=== PATIENT | female | born 1965 | race Caucasian/White ===

== ENCOUNTER 2017-09-27 18:16 | Emergency (ER) | payer OTHER ==
[~2017-09-27] VITALS: Ht 160 cm; Wt 50.0 kg
[~2017-09-27 18:16] MED LIST: ASPCH81X PO; ATV1 PO; CLOP1TAB15 PO; DLTCD/240 PO; EPP3/2 IM; FLUT50SP14 NAE; FURO-85 PO; ISOS120T5 PO; ISR/5 SL; LEVE1TAB57 PO; LISI5TAB PO; MORP1TAB12 PO; NRN600 PO; ONDA4TAB46 PO; OXYC1TAB3 PO; PHN/100 PO; POLY335025 PO; POTA20TA13 PO; PRAZ1CAP10 PO; PRIM50TA29 PO; SIMV10TA2 PO; ZNTT/150 PO
[2017-09-27 18:19] VITALS: TEMP 36.9; Ht 160 cm; Wt 50.0 kg
--- NOTE | 2017-09-27 19:09 | DIAGNOSTIC IMAGING REPORT ---
LEFT ANKLE 3 VIEWS, LEFT FOOT 3 VIEWS HISTORY: Left ankle and foot pain. Fall. COMPARISON: None. FINDINGS: There is an oblique lucency within the proximal phalanx of the second toe. This demonstrates corticated edges and mild callus formation. Therefore, this favors a healing/healed fracture. Old avulsion injury at the medial malleolus. Mild soft tissue swelling within the ankle. No radiopaque foreign bodies. Small bony fragment at the dorsal aspect of the anterior talus with mild overlying soft tissue swelling. This favors an acute avulsion fracture. IMPRESSION: 1. An acute small avulsion fracture at the dorsal aspect of the anterior talus. 2. Healing/healed nondisplaced fracture within the proximal phalanx of the second toe. Electronically signed by: Robert Godoy M.D. 09/27/2017 7:08 PM Dictated Date/Time: 09/27/2017 6:57 PM
[2017-09-27] MEDS ORDERED: FERR1TAB13 PO (19:10)
[2017-09-27] MEDS ORDERED: ATV/1 PO (19:10)
[2017-09-27] MEDS ORDERED: KPP/1000 PO ×2 (19:17)
[2017-09-27] MEDS ORDERED: FLUT0.15 NAE (19:17)
[2017-09-27 19:55] VITALS: BP 118/55; PULSE 66; O2SAT 96
--- NOTE | 2017-09-28 20:43 | EMERGENCY ROOM VISIT NOTE ---
ED Visit Note First contact with patient: 18:25 Chief Complaint: Left foot pain. History of Present Illness: Ms. Freire is a 52-year-old white female who is brought into the ED via wheelchair accompanied by her complaining of left foot pain. Historically patient reports she has a history of muscular dystrophy. Patient reports earlier today she started walking down a flight of steps. She reports when she put her left foot on the step and somehow inverted and "gave out". She then landed on her buttocks and slid down a few stairs. She reports when she stopped she was experiencing severe left ankle and foot pain. This injury occurred approximately 2-3 hours ago. Since that time her pain has been constant. Currently she describes her pain as a throbbing, burning and pressure sensation throughout the ankle and over the lateral aspect of the forefoot. She rates her discomfort 7/10. Her pain is nonradiating. Her pain worsens with ambulation, all movements of the ankle and foot. She has not identified any alleviating factors related to the pain. She reports she took 30 mg of morphine by mouth for her pain with minimal relief of her discomfort. She denies any associated symptoms with her foot pain including worsening numbness/ tingling, worsening weakness, lower leg pain, knee pain, hip pain, back pain. Review of Systems: As noted above in history of present illness. 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 Current Medications: Medications Dose Route/Sig Max Daily Dose Days Date Category Dose Instructions Keppra (Levetiracetam) 1,000 Mg Tab 500 Mg PO HS 09/27/17 Reported Keppra (Levetiracetam) 1,000 Mg Tab 1,000 Mg PO UD 09/27/17 Reported 1 TAB IN THE MORNING AND 1 TAB AT 4PM Flonase Allergy Relief (Fluticasone Propionate (Nasal)) 50 Mcg/Act Spr 2 Sprays ANALISA DAILY 09/27/17 Reported Kp Ferrous Sulfate (Ferrous Sulfate) 325 Mg Tab 1 Tab PO QPM 30 09/27/17 Reported WITH EVENING MEAL Ativan (Lorazepam) 1 Mg Tab 2 Mg PO HS 09/27/17 Reported Roxicodone Ir (Oxycodone HCl) 5 Mg Tab 2 Tab PO Q8 PRN 05/16/16 Reported Diltiazem Cd (Diltiazem Hcl) 240 Mg Capcr 480 Mg PO BID 05/16/16 Reported Potassium Chloride Er (Potassium Chloride Microencaps) 20 Meq Tab 40 Meq PO DAILY 05/16/16 Reported Lorazepam 1 Mg Tab 0.5 Mg PO Q4-6H 01/16/15 Reported Lasix (Furosemide) 20 Mg Tab 20 Mg PO DAILY 01/16/15 Reported Gabapentin 600 Mg Tab 600 Mg PO QID 01/16/15 Reported Miralax (Polyethylene Glycol 3350) 1 Pow Pow 17 Gm PO DAILY PRN 01/16/15 Reported Dilantin (Phenytoin Sodium) 100 Mg Cap 100 Mg PO TID 01/16/15 Reported Epipen (Epinephrine) 0.3 Mg/0.3 Ml Inj 0.3 Mg IM UD PRN 01/16/15 Reported Aspirin Chewable (Aspirin) 81 Mg Chew 81 Mg PO DAILY 09/22/13 Reported Prinivil (Lisinopril) 5 Mg Tab 10 Mg PO DAILY 05/05/13 Reported TAKE TWO 5MG TABLETS Morphine Sulfate Er (Morphine Sulfate) 30 Mg Tab 30 Mg PO BID 05/05/13 Reported Zantac (Ranitidine HCl) 150 Mg Tab 150 Mg PO BID 05/28/12 Reported Zocor (Simvastatin) 10 Mg Tab 10 Mg PO QPM 05/28/12 Reported Isordil (Isosorbide Dinitrate) 5 Mg Tab 5 Mg SL Q3HR PRN 08/05/10 Reported Take sublingual every 3 hours as needed for chest pain. Imdur Ext Rel (Isosorbide Mononitrate) 120 Mg Ertab 120 Mg PO AMPM 03/07/10 Reported Prazosin (Prazosin HCl) 1 Mg Cap 1 Mg PO BID 02/01/10 Reported Zofran (Ondansetron HCl) 4 Mg Tab 4 Mg PO Q6 PRN 01/15/10 Reported Take as needed for nausea/vomiting. Plavix (Clopidogrel Bisulfate) 75 Mg Tab 75 Mg PO DAILY 01/15/10 Reported Mysoline (Primidone) 50 Mg Tab 50 Mg PO TID 01/15/10 Reported Allergies to Medications: Latex, meperidine, scopolamine, levothyroxine, antihistamines, diphenhydramine. Social History: Patient is not employed; she lives with her and feels safe in her home environment; she admits to tobacco use. Physical Examination: Vital Signs: Date Time Temp Pulse Resp B/P (MAP) Pulse Ox O2 Delivery O2 Flow Rate FiO2 09/27/17 19:55 66 18 118/55 96 09/27/17 18:19 36.9 77 18 137/69 95 Room Air GENERAL: 52-year-old female in mild to moderate distress due to pain, chronically ill-appearing, afebrile and hemodynamically stable. NEUROLOGICAL: Awake, alert and oriented to person, place and time. Answering questions appropriately and following commands. SKIN: Warm, dry and pink. No soft tissue trauma noted. LEFT LOWER EXTREMITY: No gross bony deformity. No tenderness in the hip, knee or proximal tibia/fibula. Moderate tenderness over both the lateral and medial malleoli with mild swelling but no bony deformity or crepitus. Tenderness over the anterior aspect of the talus with mild swelling but no bony deformity or crepitus. Tenderness through all the metatarsals with prominence over the third , fourth and fifth with minimal swelling but no bony deformity or crepitus. Throughout the foot the skin was warm and pink and capillary refill is brisk. She was able to distinguish light sensations through all dermatomes of the toes. She had decreased range of motion in the ankle and the toes due to pain. There is also tenderness over the plantar surface of the foot with no palpable bony deformity, swelling or ecchymosis. ED Course: Patient is assessed as noted above. Patient's medication list was reviewed. Left Ankle X-Rays: Was read by myself and the radiologist showing acute small avulsion fracture to the dorsal aspect of the anterior talus. Radiologist also notes a healing nondisplaced fracture within the proximal phalanxes of the second toe. Left Foot X-Rays: Were read by myself and the radiologist showing the avulsion fracture to the talus and a healing nondisplaced fracture of the second toe. Patient was trialed on a gel splint, postop shoe and walking boot and tolerated the walking boot much better than the others. Patient and were educated about today's findings and instructed on her treatment plan; she verbalizes understanding and agreement with this plan. Clinical Impression: Acute avulsion fracture of the anterior talus. Status post fall. Disposition: Patient discharged home in stable condition accompanied by her ; prior to departure she was reassessed and subjectively reported she was feeling the same. Plan: Patient was encouraged to continue current medications as prescribed. Patient was encouraged use ice on areas of pain and swelling 4-5 times a day for 20-30 minutes. Patient was encouraged to elevate her foot while at rest. Patient was encouraged to use her fracture boot while walking; she did reports she'll walker at home which I also encouraged her to use. Patient was encouraged to follow-up with her account review specialist that [facility] for definitive care and treatment. Patient was encouraged return ED for worsening/uncontrolled pain, uncontrolled swelling, worsening numbness/tingling or weakness of the leg or any new/ concerning symptoms.
== END 2017-09-27 19:57 | disposition home or self-care (01) ==
LOC: C.EDB 18:17 → C.EDD 19:57
DX: S92.152A Displaced avulsion fracture (chip fracture) of left talus, initial encounter for closed fracture (principal); X50.1XXA Overexertion from prolonged static or awkward postures, initial encounter; W10.9XXA Fall (on) (from) unspecified stairs and steps, initial encounter; Y93.01 Activity, walking, marching and hiking; Y99.8 Other external cause status; E78.5 Hyperlipidemia, unspecified; G71.0 Muscular dystrophy; K21.9 Gastro-esophageal reflux disease without esophagitis; I25.10 Atherosclerotic heart disease of native coronary artery without angina pectoris; I11.0 Hypertensive heart disease with heart failure; I50.32 Chronic diastolic (congestive) heart failure; Z72.0 Tobacco use; Z95.810 Presence of automatic (implantable) cardiac defibrillator; Z86.74 Personal history of sudden cardiac arrest; Z98.61 Coronary angioplasty status; Z79.02 Long term (current) use of antithrombotics/antiplatelets; Z79.82 Long term (current) use of aspirin; Z79.899 Other long term (current) drug therapy

== ENCOUNTER 2021-05-15 22:12 | Inpatient (IN) ==
[2021-05-15] MEDS ORDERED: SODIUM CHLORIDE 0.9% 1000ML 1,000 ML IV ONE (23:54)
--- NOTE | 2021-05-16 00:01 | Emergency Department Note ---
Impression & Plan Anemia, Syncope, Elevated troponin ED Provider Note Name: EFRAÍN TIPTON Age: 55 Sex: F Arrives Via: Ambulance Informant: Patient, ED Provider: Mani Bojorquez MD Chief Complaint: syncope Impression: Anemia Syncope Elevated Troponin Medical Decision Makin yr old female with extensive PMH including known coronary disease arrives for evaluation of acute weakness and syncope. On discussion weakness ongoing the last few weeks to the point where unable to even ambulate around her house and associated with persistent chest pains and body aches. She is tired and ill appearing on evaluation but not in extremis, is breathing comfortably and vitals with mild hypotension. She has no focal deficits to suspect acute stroke at this time. She is afebrile, clear lungs and soft abdomen thus infection seems unlikely. Quite pale appearing which was explained with severe anemia. Discussed rectal exam though she declines stating cologuard in last few days was negative. Urgently ordered 2 U PRBC which she and signed consent for. She has mild trop elevation which is concerning in setting of chest pains, though without STEMI and with chronicity I do not feel that emergent cath in setting of severe anemia indicated at this time. 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 Hospitalist consulted for further management Prior Medical Record and Triage/Nursing Notes reviewed by Me Additional history obtained from chart Differentials:Infection, dehydration, metabolic abnormality, hypo/hyperglycemia, electrolyte disturbance, anemia, hypoxia, cardiac sources, intracerebral event, toxicologic, neurologic, as well as other pathologies. Vital Signs: reviewed and remarkable for mild hypotension Interventions: saline lock, nss bolus, 2 Units PRBC, fentanyl iv, morphine iv Labs:Reviewed and remarkable for anemia, elevated trop Imaging:X ray results are stated below per my interpretation: Chest: 1 view: No infiltrate, no effusion, normal cardiac border. EKG:Per My Interpretation: Indication weakness: NSR 77 bpm, qtc 427. No Ectopy. Lateral ST depressions without STEMI. Compared to EKG 01/29/[address] depressions. Cardiac/Tele Monitoring: Cardiac Monitoring: An Order was placed for continuous cardiac monitoring. The monitor shows a rate of 70 with a normal sinus rhythm. Consults:Dr Richard Garcia Hospitalist Plan: Disposition:Hospitalization. Condition: Fair History of Present Illness:55 yr old female arrives for evaluation of syncope. Patient notes she has been feeling weak and tired for the last few weeks. Today patient notes she just has felt very weak. Associated with nausea, weakness, leg pains, left chest pains. States she has no appetite. This evening notes she just didn't seem to be acting normally. She had a syncopal event around 10 pm this evening which lasted a few minutes. As she came too she had some slurred speech which has resolved. He notes that she was acting quite strange making odd body movement. This gradually got better. No fevers, chills, cough, syncope, headache, neck pain, nor other symptoms. No focal weakness but notes that that her right leg has not been working correctly for quite some time. No medications prior to arrival. She did not take her medications this evening. Nothing makes better nor worse. ROS: See above HPI for pertinent positives & negatives. A total of 10 systems reviewed and were otherwise negative. Past Medical History:See Below Past Surgical History:See Below Family History:See Below Social History:See Below Home Medications:See Below Allergies:See Below Vitals:Blood Pressure: 106/49, Pulse 75, RR 22, T 36.6C, O2 93% on RA Physical Exam: GENERAL: Patient is chronically unwell appearing and in minimal distress. Mildly anxious, cachectic, dehydrated, pale appearing EYES: No scleral icterus, unremarkable pupils. ENT: Mucous membranes dry, no nasal congestion. NECK: No masses appreciated, nomeningismus, trachea is midline. RESPIRATORY: No dyspnea. Clear to auscultation and equal bilaterally. No wheeze, no rhonchi. CARDIOVASCULAR: Regular rate and rhythm.No murmurs, rubs, gallops appreciated. GASTROINTESTINAL: Abdomen soft, non-tender, no peritonitis.Bowel sounds positi ve.No masses appreciated. BACK: No midline tenderness, no CVA tenderness EXTREMITIES: Normal motion all extremities, no cyanosis, no edema. NEUROLOGIC: Alert and oriented, no acute motor or sensory deficits, no focal weakness, cranial nerves grossly intact. SKIN: No rash, no jaundice, no diaphoresis. PSYCH: Appropriate GCS: 15 ED Course: Times/Reassessments: stable on multiple evaluations Critical Care: I have personally spent 37 minutes of critical care time in the direct management of this patient. Acute anemia causing syncope and elevated troponin, requiring emergent transfusion. This was a life/limb threatening event. This 37 minutes is in excess of all separately billable procedures. Mani Bojorquez MD Past Med/Surg History Social History Smoking Status: Smoker, status unknown Tobacco Type: Cigarettes Second Hand Exposure: No; Do You Dip or Chew Tobacco: No; Tobacco Cessation Education Requested by Patient: No Hx Alcohol Use: No Hx Substance Use: Yes Last Used Substance: Days (ago) Communication Ability: Effective Beliefs That Will Affect Care: None marital status: Current Living Situation: Family Other Information That Helps Us Care for You: No Feels Safe at Home: Yes Safety Concerns: Feels Safe At This Time Assistive Devices: Cane, Walker and Wheelchair Allergies Allergies Allergy/AdvReac Type Severity Reaction Status Date / Time bee venom protein (honey bee) Allergy Unknown , Verified 05/15/21 23:32 latex Allergy Unknown 0 Verified 05/15/21 23:32 meperidine Allergy Unknown ? Verified 05/15/21 23:32 scopolamine Allergy Unknown 0 Verified 05/15/21 23:32 levofloxacin AdvReac Intermediate QTC Verified 05/15/21 23:32 PROLONGATION H/O VF ARREST diphenhydramine AdvReac Mild "ARTERITAL Verified 05/15/21 23:32 SPASMS" COLD AdvReac Unknown VASCULAR Uncoded 05/15/21 23:32 COLLAPSE SYNDROME Home Meds Home Medications Medication Instructions Recorded Confirmed albuterol sulfate 90 mcg/actuation 2 puff INHALATION Q4 PRN 05/15/21 05/15/21 aerosol inhaler aspirin 81 mg tablet,delayed 81 mg PO DAILY 05/15/21 05/15/21 release atorvastatin 80 mg tablet 80 mg PO HS 05/15/21 05/15/21 clopidogrel 75 mg tablet 75 mg PO DAILY 05/15/21 05/15/21 diltiazem HCl 240 mg capsule,24 480 mg PO DAILY 05/15/21 05/15/21 hr,extended release epinephrine 0.3 mg/0.3 mL 0.3 mg IM UD PRN 05/15/21 05/15/21 injection, auto-injector (EpiPen) fluticasone propionate 50 2 spray INTRANASAL DAILY 05/15/21 05/15/21 mcg/actuation nasal spray,suspension furosemide 20 mg tablet 20 mg PO DAILY 05/15/21 05/15/21 gabapentin 600 mg tablet 600 mg PO TID 05/15/21 05/15/21 isosorbide dinitrate 5 mg tablet 5 mg PO . EVERY 3 HOURS PRN 05/15/21 05/15/21 isosorbide mononitrate 120 mg 120 mg PO AMPM 05/15/21 05/15/21 tablet,extended release 24 hr levetiracetam 1,000 mg tablet 1,000 mg PO BID 05/15/21 05/15/21 lisinopril 5 mg tablet 10 mg PO DAILY 05/15/21 05/15/21 loratadine 10 mg tablet 10 mg PO DAILY 05/15/21 05/15/21 morphine 30 mg tablet,extended 30 mg PO BID 05/15/21 05/15/21 release omeprazole 20 mg capsule,delayed 20 mg PO DAILY 05/15/21 05/15/21 release oxycodone 5 mg tablet 5 mg PO Q6 PRN 05/15/21 05/15/21 phenytoin sodium extended 100 mg 100 mg PO TID 05/15/21 05/15/21 capsule potassium chloride 20 mEq 40 meq PO DAILY 05/15/21 05/15/21 tablet,extended release(part/cryst) prazosin 1 mg capsule 1 mg PO BID 05/15/21 05/15/21 protein 500 mg chewable tablet 500 mg PO DAILY 05/15/21 05/15/21 tizanidine 4 mg tablet 4 mg PO Q8 PRN 05/15/21 05/15/21 trazodone 50 mg tablet 100 mg PO HS 05/15/21 05/15/21 Results & Data (ED) Vital Signs Vital Signs - 24 hr 05/15/21 22:22 05/15/21 22:24 05/15/21 23:59 Temperature 36.6 C Temperature Source Oral Pulse Rate 85 75 76 Pulse Rate from SpO2 Sensor 75 Pulse Rhythm Regular Pulse Strength Normal Respiratory Rate 22 22 14 Respiratory Effort / Characteristics Non-Labored Spontaneous Respiratory Depth Normal Respiratory Pattern Regular Blood Pressure 106/49 L 94/52 L Blood Pressure Mean 68 66 Blood Pressure Position Lying Pulse Oximetry 93 93 94 Oxygen Delivery Method Room Air Room Air Oxygen Flow Rate Sepsis Recent Fever Within 48 Hours No Sepsis New/Unexplained Change in Mental Status No Sepsis Action Taken by Nursing No Action Required 05/16/21 02:10 05/16/21 02:25 05/16/21 02:40 Temperature 36.8 C 36.9 C 36.8 C Temperature Source Oral Oral Oral Pulse Rate 75 76 75 Pulse Rate from SpO2 Sensor Pulse Rhythm Pulse Strength Respiratory Rate 16 20 20 Respiratory Effort / Characteristics Respiratory Depth Respiratory Pattern Blood Pressure 89/60 L 87/57 L 92/62 L Blood Pressure Mean 69 67 72 Blood Pressure Position Lying Pulse Oximetry 97 95 94 Oxygen Delivery Method Oxygen Flow Rate 2 2 2 Sepsis Recent Fever Within 48 Hours Sepsis New/Unexplained Change in Mental Status Sepsis Action Taken by Nursing Laboratory Data Result diagrams: 05/17/21 04:48 05/17/21 04:48 Lab Results 05/16/21 05/16/21 05/16/21 Range/Units 00:15 00:15 00:22 WBC (4.8-10.8) K/uL RBC (4.2-5.4) M/uL Hgb (12.0-16.0) g/dL Hct (37-47) % MCV (80-100) fL MCH (25-34) pg MCHC (32-36) g/dL RDW Std Deviation (36.4-46.3) fL RDW Coeff of Lola (11.5-14.5) % Plt Count (130-400) K/uL MPV (7.4-10.4) fL Immature Gran % (Auto) % Neut % (Auto) % Lymph % (Auto) % [place] % (Auto) % Eos % (Auto) % Baso % (Auto) % Neut # (Auto) (1.4-6.5) K/uL Lymph # (Auto) (1.2-3.4) K/uL [place] # (Auto) (0.11-0.59) K/uL Eos # (Auto) (0-0.5) K/uL Baso # (Auto) (0-0.2) K/uL Immature Gran # (Auto) (0.00-0.02) K/uL Giant Platelets Hypochromasia Poikilocytosis PT (9.0-12.0) Seconds INR (0.9-1.1) Sodium (136-145) mmol/L Potassium (3.5-5.1) mmol/L Chloride (98-107) mmol/L Carbon Dioxide (21-32) mmol/L Anion Gap (3-11) BUN (7-18) mg/dl Creatinine (0.6-1.2) mg/dl Est Cr Clr Drug Dosing ml/min Est GFR ( Amer) ml/min Est GFR (Non-Af Amer) ml/min BUN/Creatinine Ratio (10-20) Glucose (70-99) mg/dl Calcium (8.5-10.1) mg/dl Magnesium (1.8-2.4) mg/dl Total Bilirubin (0.2-1) mg/dl Direct Bilirubin (0-0.2) mg/dl AST (15-37) U/L ALT (12-78) U/L Alkaline Phosphatase (45-117) U/L Ammonia (11-32) umol/L Total Creatine Kinase (26-192) U/L Troponin I (0-0.045) ng/ml Total Protein (6.4-8.2) gm/dl Albumin (3.4-5.0) gm/dl Urine Color Urine Appearance (Clear) Urine pH (4.5-7.5) Ur Specific [place] (1.000-1.030) Urine Protein (Negative) Urine Glucose (UA) (Negative) Urine Ketones (Negative) Urine Blood (Negative) Urine Nitrite (Negative) Urine Bilirubin (Negative) Urine Urobilinogen (Negative) Ur Leukocyte Esterase (Negative) Ethyl Alcohol mg/dL (0-3) mg/dl COVID-19 Eval Order Covid19 at [facility] SARS-CoV-2 (PCR) NEGATIVE (Negative) Blood Type O Positive Antibody Screen NEGATIVE Crossmatch See Detail 05/16/21 05/16/21 05/16/21 Range/Units 00:22 00:22 00:22 WBC 7.27 (4.8-10.8) K/uL RBC 2.28 L (4.2-5.4) M/uL Hgb 5.4 L* (12.0-16.0) g/dL Hct 18.1 L* (37-47) % MCV 79.4 L (80-100) fL MCH 23.7 L (25-34) pg MCHC 29.8 L (32-36) g/dL RDW Std Deviation 47.9 H (36.4-46.3) fL RDW Coeff of Lola 16.5 H (11.5-14.5) % Plt Count 232 (130-400) K/uL MPV 10.1 (7.4-10.4) fL Immature Gran % (Auto) 0.3 % Neut % (Auto) 77.9 % Lymph % (Auto) 11.8 % [place] % (Auto) 9.8 % Eos % (Auto) 0.1 % Baso % (Auto) 0.1 % Neut # (Auto) 5.66 (1.4-6.5) K/uL Lymph # (Auto) 0.86 L (1.2-3.4) K/uL [place] # (Auto) 0.71 H (0.11-0.59) K/uL Eos # (Auto) 0.01 (0-0.5) K/uL Baso # (Auto) 0.01 (0-0.2) K/uL Immature Gran # (Auto) 0.02 (0.00-0.02) K/uL Giant Platelets 1+ Hypochromasia Present Poikilocytosis Present PT (9.0-12.0) Seconds INR (0.9-1.1) Sodium 131 L (136-145) mmol/L Potassium 5.4 H (3.5-5.1) mmol/L Chloride 103 (98-107) mmol/L Carbon Dioxide 22 (21-32) mmol/L Anion Gap 6.0 (3-11) BUN 22 H (7-18) mg/dl Creatinine 0.63 (0.6-1.2) mg/dl Est Cr Clr Drug Dosing 76.7 ml/min Est GFR ( Amer) 116.2 ml/min Est GFR (Non-Af Amer) 100.3 ml/min BUN/Creatinine Ratio 34.6 H (10-20) Glucose 90 (70-99) mg/dl Calcium 7.9 L (8.5-10.1) mg/dl Magnesium 2.5 H (1.8-2.4) mg/dl Total Bilirubin 0.2 (0.2-1) mg/dl Direct Bilirubin < 0.1 (0-0.2) mg/dl AST 67 H (15-37) U/L ALT 109 H (12-78) U/L Alkaline Phosphatase 139 H (45-117) U/L Ammonia 23.6 (11-32) umol/L Total Creatine Kinase 109 (26-192) U/L Troponin I 1.450 H* (0-0.045) ng/ml Total Protein 6.1 L (6.4-8.2) gm/dl Albumin 3.0 L (3.4-5.0) gm/dl Urine Color Urine Appearance (Clear) Urine pH (4.5-7.5) Ur Specific [place] (1.000-1.030) Urine Protein (Negative) Urine Glucose (UA) (Negative) Urine Ketones (Negative) Urine Blood (Negative) Urine Nitrite (Negative) Urine Bilirubin (Negative) Urine Urobilinogen (Negative) Ur Leukocyte Esterase (Negative) Ethyl Alcohol mg/dL (0-3) mg/dl COVID-19 Eval Order SARS-CoV-2 (PCR) (Negative) Blood Type Antibody Screen Crossmatch 05/16/21 05/16/21 05/16/21 Range/Units 00:22 00:22 01:45 WBC (4.8-10.8) K/uL RBC (4.2-5.4) M/uL Hgb (12.0-16.0) g/dL Hct (37-47) % MCV (80-100) fL MCH (25-34) pg MCHC (32-36) g/dL RDW Std Deviation (36.4-46.3) fL RDW Coeff of Lola (11.5-14.5) % Plt Count (130-400) K/uL MPV (7.4-10.4) fL Immature Gran % (Auto) % Neut % (Auto) % Lymph % (Auto) % [place] % (Auto) % Eos % (Auto) % Baso % (Auto) % Neut # (Auto) (1.4-6.5) K/uL Lymph # (Auto) (1.2-3.4) K/uL [place] # (Auto) (0.11-0.59) K/uL Eos # (Auto) (0-0.5) K/uL Baso # (Auto) (0-0.2) K/uL Immature Gran # (Auto) (0.00-0.02) K/uL Giant Platelets Hypochromasia Poikilocytosis PT 10.5 (9.0-12.0) Seconds INR 1.0 (0.9-1.1) Sodium (136-145) mmol/L Potassium (3.5-5.1) mmol/L Chloride (98-107) mmol/L Carbon Dioxide (21-32) mmol/L Anion Gap (3-11) BUN (7-18) mg/dl Creatinine (0.6-1.2) mg/dl Est Cr Clr Drug Dosing ml/min Est GFR ( Amer) ml/min Est GFR (Non-Af Amer) ml/min BUN/Creatinine Ratio (10-20) Glucose (70-99) mg/dl Calcium (8.5-10.1) mg/dl Magnesium (1.8-2.4) mg/dl Total Bilirubin (0.2-1) mg/dl Direct Bilirubin (0-0.2) mg/dl AST (15-37) U/L ALT (12-78) U/L Alkaline Phosphatase (45-117) U/L Ammonia (11-32) umol/L Total Creatine Kinase (26-192) U/L Troponin I (0-0.045) ng/ml Total Protein (6.4-8.2) gm/dl Albumin (3.4-5.0) gm/dl Urine Color Yellow Urine Appearance Clear (Clear) Urine pH 5.0 (4.5-7.5) Ur Specific [place] 1.010 (1.000-1.030) Urine Protein Negative (Negative) Urine Glucose (UA) Negative (Negative) Urine Ketones Negative (Negative) Urine Blood Negative (Negative) Urine Nitrite Negative (Negative) Urine Bilirubin Negative (Negative) Urine Urobilinogen Negative (Negative) Ur Leukocyte Esterase Negative (Negative) Ethyl Alcohol mg/dL < 3.0 (0-3) mg/dl COVID-19 Eval Order SARS-CoV-2 (PCR) (Negative) Blood Type Antibody Screen Crossmatch Administered Medications Albuterol (Albuterol Hfa 8 Gm Inhaler) 2 puffs INH Q4 PRN PRN Reason: Wheezing Stop: 06/15/21 08:16 Last Admin: 05/16/21 09:34 Dose: 2 puffs Documented by: [id number] Atorvastatin Calcium (Atorvastatin 40 Mg Tab) 80 mg PO HS DENISSE Stop: 06/15/21 20:59 Last Admin: 05/16/21 20:00 Dose: 80 mg Documented by: [id number] Diltiazem HCl (Diltiazem Er 120 Mg Capcr) 480 mg PO DAILY DENISSE Stop: 06/15/21 08:59 Last Admin: 05/16/21 09:22 Dose: 480 mg Documented by: [id number] Fluticasone Propionate (Fluticasone Propionate Na Spr 16 Gm Btl) 2 sprays NA DAILY DENISSE Stop: 06/15/21 08:59 Last Admin: 05/16/21 09:20 Dose: Not Given Documented by: [id number] Furosemide (Furosemide 20 Mg Tab) 20 mg PO DAILY DENISSE Stop: 06/15/21 08:59 Last Admin: 05/16/21 09:16 Dose: 20 mg Documented by: [id number] Gabapentin (Gabapentin 600 Mg Tab) 600 mg PO TID DENISSE Stop: 06/15/21 08:59 Last Admin: 05/16/21 20:01 Dose: 600 mg Documented by: [id number] Admin: 05/16/21 13:18 Dose: 600 mg Documented by: [id number] Admin: 05/16/21 09:21 Dose: 600 mg Documented by: [id number] Hydromorphone HCl (Hydromorphone Inj 0.5 Mg/0.5 Ml Syr) 0.5 mg IV Q4H PRN PRN Reason: Pain Stop: 05/30/21 08:16 Last Admin: 05/17/21 03:43 Dose: 0.5 mg Documented by: [id number] Admin: 05/16/21 09:19 Dose: 0.5 mg Documented by: [id number] Levetiracetam 1,000 mg/ Sodium (Chloride) 110 mls @ 440 mls/hr IV BID DENISSE Stop: 06/15/21 08:59 Last Infusion: 05/16/21 20:17 Dose: 0 mls/hr Documented by: [id number] Admin: 05/16/21 20:02 Dose: 440 mls/hr Documented by: [id number] Infusion: 05/16/21 09:43 Dose: 0 mls/hr Documented by: [id number] Admin: 05/16/21 09:29 Dose: 440 mls/hr Documented by: [id number] Phenytoin 100 mg/ Syringe 2 mls @ 1 mls/min IV TID DENISSE Stop: 06/15/21 08:59 Last Admin: 05/16/21 20:03 Dose: 1 mls/min Documented by: [id number] Admin: 05/16/21 13:18 Dose: 1 mls/min Documented by: [id number] Admin: 05/16/21 09:21 Dose: 1 mls/min Documented by: [id number] Isosorbide Mononitrate (Isosorbide [place] Extended Rel 60 Mg Tabcr) 120 mg PO BID DENISSE Stop: 06/15/21 08:59 Last Admin: 05/16/21 20:02 Dose: 120 mg Documented by: [id number] Admin: 05/16/21 09:22 Dose: 120 mg Documented by: [id number] Lisinopril (Lisinopril 10 Mg Tab) 10 mg PO DAILY DENISSE Stop: 06/15/21 08:59 Last Admin: 05/16/21 09:21 Dose: 10 mg Documented by: [id number] Loratadine (Loratadine 10 Mg Tab) 10 mg PO DAILY DENISSE Stop: 06/15/21 08:59 Last Admin: 05/16/21 09:21 Dose: 10 mg Documented by: [id number] Morphine Sulfate (Morphine Sulfate Cr 15 Mg Tabcr) 30 mg PO BID DENISSE Stop: 05/30/21 08:59 Last Admin: 05/16/21 20:07 Dose: 30 mg Documented by: [id number] Admin: 05/16/21 10:05 Dose: 30 mg Documented by: [id number] Oxycodone HCl (Oxycodone Hcl Ir 5 Mg Tab (Immediate Release)) 5 mg PO Q6 PRN PRN Reason: Pain, Moderate Stop: 05/30/21 08:16 Last Admin: 05/16/21 23:41 Dose: 5 mg Documented by: [id number] Admin: 05/16/21 18:06 Dose: 5 mg Documented by: [id number] Pantoprazole Sodium (Pantoprazole 40 Mg Tab) 40 mg PO DAILY DENISSE Stop: 06/15/21 08:59 Last Admin: 05/16/21 09:22 Dose: 40 mg Documented by: [id number] Prazosin HCl (Prazosin Hcl 1 Mg Cap) 1 mg PO BID DENISSE Stop: 06/15/21 08:59 Last Admin: 05/16/21 20:04 Dose: 1 mg Documented by: [id number] Admin: 05/16/21 09:22 Dose: 1 mg Documented by: [id number] Sodium Chloride (Sodium Chloride 0.9% 10ml Flush) 20 ml IV TID DENISSE Stop: 06/15/21 08:59 Last Admin: 05/16/21 20:00 Dose: 20 ml Documented by: [id number] Admin: 05/16/21 13:18 Dose: 20 ml Documented by: [id number] Admin: 05/16/21 09:22 Dose: 20 ml Documented by: [id number] Tizanidine HCl (Tizanidine Hcl 4 Mg Tablet) 4 mg PO Q8 PRN PRN Reason: Muscle Spasm Stop: 06/15/21 08:16 Last Admin: 05/16/21 09:21 Dose: 4 mg Documented by: [id number] Trazodone HCl (Trazodone Hcl 100 Mg Tab) 100 mg PO HS DENISSE Stop: 06/15/21 20:59 Last Admin: 05/16/21 20:05 Dose: 100 mg Documented by: [id number] Discontinued Medications Acetaminophen (Acetaminophen 500 Mg Tab) 1,000 mg PO NOW STA Stop: 05/16/21 01:22 Last Admin: 05/16/21 01:37 Dose: 1,000 mg Documented by: [id number] Albuterol (Albut/Ipratrop 3mg/0.5mg Neb 3 Ml Vial) 3 ml NEB NOW STA Stop: 05/16/21 04:33 Last Admin: 05/16/21 04:47 Dose: 3 ml Documented by: [id number] Fentanyl Citrate (Fentanyl Citrate 100 Mcg/2 Ml Vial) 50 mcg IV NOW STA Stop: 05/16/21 01:22 Last Admin: 05/16/21 01:37 Dose: 50 mcg Documented by: [id number] Sodium Chloride (Nss 1000ml) 1,000 mls @ 999 mls/hr IV .Q1H1M ONE Stop: 05/16/21 00:54 Last Infusion: 05/16/21 01:12 Dose: 0 mls/hr Documented by: [id number] Admin: 05/16/21 00:18 Dose: 999 mls/hr Documented by: [id number] Pantoprazole Sodium 80 mg/ (Dextrose) 100 mls @ 400 mls/hr IV ONE STA Stop: 05/16/21 05:50 Last Infusion: 05/16/21 08:20 Dose: 0 mls/hr Documented by: [id number] Admin: 05/16/21 08:03 Dose: 400 mls/hr Documented by: [id number] Furosemide 20 mg/ Syringe 2 mls @ 4 mls/min IV ONE ONE Stop: 05/16/21 09:31 Last Admin: 05/16/21 09:18 Dose: 4 mls/min Documented by: [id number] Furosemide 10 mg/ Syringe 1 mls @ 4 mls/min IV TODAY@1700 DENISSE Stop: 05/16/21 23:59 Last Admin: 05/16/21 16:34 Dose: 4 mls/min Documented by: [id number] Furosemide 10 mg/ Syringe 1 mls @ 4 mls/min IV ONE DENISSE Stop: 05/16/21 22:00 Last Admin: 05/16/21 19:59 Dose: 4 mls/min Documented by: [id number] Lorazepam (Lorazepam 0.5 Mg Tab) 0.25 mg PO NOW STA Stop: 05/16/21 10:51 Last Admin: 05/16/21 16:23 Dose: Not Given Documented by: [id number] Morphine Sulfate (Morphine Sulfate 10 Mg/Ml Carp/Vial) 6 mg IV NOW STA Stop: 05/16/21 01:58 Last Admin: 05/16/21 02:01 Dose: 6 mg Documented by: [id number] Potassium Chloride (Potassium Chloride Crtab 20 Meq Tabcr) 40 meq PO DAILY DENISSE Stop: 06/15/21 08:59 Last Admin: 05/16/21 09:39 Dose: Not Given Documented by: [id number] Discharge Plan Visit Data Chief Complaint: Syncope (Near Syncope) Stated Complaint: syncopal; hypotension ED Provider: Mani Bojorquez Discharge Problem: Anemia, Syncope, Elevated troponin Patient Disposition: Admitted As Inpatient Discharge Instructions Interventions: ED Discharge Assessment Last Done: 05/16/21 06:15 Discharge Problem: Anemia Qualifiers: Anemia type: other cause Other causes of anemia: other cause, not classified Qualified Code(s): D64.89 - Other specified anemias Syncope Qualifiers: Syncope type: unspecified Qualified Code(s): R55 - Syncope and collapse
[2021-05-16 00:47] LABS: Prothrombin Time 10.5 Seconds (9.0-12.0)
[2021-05-16 00:57] LABS: Alanine Aminotransferase 109 U/L (12-78); Aspartate Aminotransferase 67 U/L (15-37); BUN Creatinine Ratio 34.6 (10-20); Bilirubin Direct < 0.1 mg/dl (0-0.2); Blood Urea Nitrogen 22 mg/dl (7-18); Calcium 7.9 mg/dl (8.5-10.1); Carbon Dioxide 22 mmol/L (21-32); Chloride 103 mmol/L (98-107); Creatinine Clr Calc Pharmacy 76.7 ml/min; Est GFR (African American) 116.2 ml/min; Est GFR (Non-African American) 100.3 ml/min; Glucose 90 mg/dl (70-99); Magnesium 2.5 mg/dl (1.8-2.4); Potassium 5.4 mmol/L (3.5-5.1); Sodium 131 mmol/L (136-145)
[2021-05-16 01:02] LABS: Basophils # (auto) 0.01 K/uL (0-0.2); Basophils % (auto) 0.1 %; Eosinophils # (auto) 0.01 K/uL (0-0.5); Eosinophils % (auto) 0.1 %; Giant Platelets 1+; Hematocrit (blood only) 18.1 % (37-47); Hemoglobin 5.4 g/dL (12.0-16.0); Hypochromasia Present; Immature Granulocytes # (auto) 0.02 K/uL (0.00-0.02); Immature Granulocytes % (auto) 0.3 %; Lymphocytes # (auto) 0.86 K/uL (1.2-3.4); Lymphocytes % (auto) 11.8 %; Mean Corpuscular Hemoglobin 23.7 pg (25-34); Mean Corpuscular Hgb Conc 29.8 g/dL (32-36); Mean Corpuscular Volume 79.4 fL (80-100); Mean Platelet Volume 10.1 fL (7.4-10.4); Monocytes # (auto) 0.71 K/uL (0.11-0.59); Monocytes % (auto) 9.8 %; Neutrophils # (auto) 5.66 K/uL (1.4-6.5); Neutrophils % (auto) 77.9 %; Platelet Count 232 K/uL (130-400); Poikilocytosis Present; RDW Coefficient of Variation 16.5 % (11.5-14.5); RDW Standard Deviation 47.9 fL (36.4-46.3); Red Blood Count 2.28 M/uL (4.2-5.4); White Blood Count 7.27 K/uL (4.8-10.8)
[2021-05-16 01:06] LABS: Alkaline Phosphatase 139 U/L (45-117); Bilirubin,Total 0.2 mg/dl (0.2-1); Creatine Kinase 109 U/L (26-192); Total Protein 6.1 gm/dl (6.4-8.2)
[2021-05-16] MEDS ORDERED: SODIUM CHLORIDE 0.9% 250 ML IV PRN ×3 (01:21→19:16)
[2021-05-16] MEDS ORDERED: fentaNYL citrate 100 MCG/2 ML VIAL IV STA (01:21)
[2021-05-16] MEDS ORDERED: ACETAMINOPHEN 500 MG TAB PO STA (01:21)
[2021-05-16] MEDS ORDERED: MoRPHine SULFATE 10 MG/ML CARP/VIAL IV STA (01:57)
[2021-05-16] MEDS ORDERED: MoRPHine SULFATE 10 MG/ML CARP/VIAL IV PRN (01:57)
[2021-05-16 02:01] LABS: Appearance Urine Clear (Clear); Bilirubin Urine Negative (Negative); Blood Urine Negative (Negative); Color Urine Yellow; Glucose Urine UA Negative (Negative); Ketones Urine Negative (Negative); Leukocyte Esterase Urine Negative (Negative); Nitrite Urine Negative (Negative); Protein Urine Negative (Negative); Urobilinogen Urine Negative (Negative)
[2021-05-16] MEDS ORDERED: ALBUT/IPRATROP 3MG/0.5MG NEB 3 ML VIAL NEB STA (04:32)
[2021-05-16] MEDS ORDERED: PANTOprazole 80 MG in DEXTROSE 5% 100 ML IV STA (05:36)
--- NOTE | 2021-05-16 06:38 | CT Scan Report ---
CT head/brain wo con CLINICAL HISTORY: 55 years-old Female with syncope. Acute syncope TECHNIQUE: Multiple axial CT images of the head were obtained without contrast. A dose lowering tech nique was utilized adhering to the principles of ALARA. CT DOSE: 537.48 mGy.cm COMPARISON: Head CT 05/16/2016 FINDINGS: No acute intracranial hemorrhage, midline shift, intracranial mass, hydrocephalus, territorial ischem ia or abnormal extra-axial collection. Mild white matter hypodensities may be on a basis of chronic m icrovascular ischemic disease. Cerebral vascular calcifications. The calvarium is intact. The paranasal sinuses, mastoid air cells, and middle ear cavities are clear . IMPRESSION: No acute intracranial abnormality. ACT 112: Negative or not required by law. The above report was generated using voice recognition software. It may contain grammatical, syntax o r spelling errors. Electronically signed by: Freeman Nelson M.D. 05/16/2021 6:36 AM
--- NOTE | 2021-05-16 07:32 | History and Physical Report ---
DATE OF ADMISSION: 05/16/2021. CHIEF COMPLAINT: Syncope. HISTORY OF PRESENT ILLNESS: This is a 55-year-old female with past medical history significant for hyperlipidemia, COPD, ongoing tobacco abuse, still smokes 2-3 cigarettes daily, history of diastolic CHF, bilateral carotid artery stenosis, hypertension, history of CAD, Prinzmetal angina, GERD, vitamin D deficiency, myotonic muscular dystrophy, sacroiliitis, posttraumatic stress disorder, chronic pain syndrome, polyneuropathy and collagen vascular disease, microcytic anemia, status post ICD, nondependent cocaine abuse in remission, nondependent cannabis abuse , CAD status post stent, anxiety, and depression. The patient lives with her director talent management. Sometimes uses a walker, sometimes uses a cane. Lately she is getting more short of breath with exertion. She was walking, ambulating in the room when she suddenly felt dizzy and suddenly collapsed. Her director talent management helped her and she does not know how long she was passed out, but not a very long time, and no biting of the tongue and no incontinence and she was brought into the ER and her hemoglobin was 5.4, potassium 5.4, and troponin is 1.45. Currently, saturating okay on 5 liters OxyMask. She was 89% on room air. Currently, resting comfortably. Complains of back pain, chronic pains, neck pain, requesting pain medication. She is on OxyContin and oxycodone p.r.n. at home. She also complains of some chest pain below her pacemaker region, moderate in severity, short of breath with exertion. Has cough. No fevers. Denies any headache. No blurred visions, no earache, no runny nose, no sore throat. Appetite is not that great. No difficulty swallowing. No nausea, no abdominal pain. Denies any blood in the stools or black stools. No hematuria. She says had significant significant GI bleeding in 2009 causing cardiac arrest. ALLERGIES: BEE VENOM, LATEX, MEPERIDINE, SCOPOLAMINE, LEVAQUIN, DIPHENHYDRAMINE, COLD. PAST MEDICAL HISTORY: As mentioned above. PAST SURGICAL HISTORY: Biopsy of the breast, left heart catheterization, hysteroscopy, endometrial ablation, cardiac defibrillator, knee arthroscopy, ligation of oviducts, cataracts, left carotid endarterectomy. MEDICATIONS: The patient is on albuterol 2 puffs inhalation q. 4 hours p.r.n., aspirin 81 mg p.o. daily, atorvastatin 80 mg p.o. at bedtime, Plavix 75 mg p.o. daily, diltiazem 480 mg p.o. daily, EpiPen p.r.n., Flonase 2 sprays intranasal daily, Lasix 20 mg p.o. daily, gabapentin 600 mg p.o. t.i.d., isosorbide dinitrate 5 mg p.o. q. 3 hours p.r.n., isosorbide mononitrate 120 mg p.o. b.i.d., Keppra 1000 mg p.o. b.i.d., lisinopril 10 mg p.o. daily, loratadine 10 mg p.o. daily, MS Contin 30 mg p.o. b.i.d., omeprazole 20 mg p.o. daily, oxycodone 5 mg p.o. q. 6 hours p.r.n., phenytoin extended 100 mg p.o. t.i.d., potassium chloride 40 mEq p.o. b.i.d., prazosin 1 mg p.o. b.i.d., protein 500 mg p.o. daily, tizanidine 4 mg p.o. q. 8 hours p.r.n., trazodone 100 mg p.o. at bedtime. FAMILY HISTORY: Significant for sister has asthma; son has asthma; mother has uterine cancer, heart disorder; father has emphysema and MS. SOCIAL HISTORY: Lives with a director talent management, smokes 3-4 cigarettes every day for last many years. No alcohol use. Smokes marijuana. REVIEW OF SYSTEMS: As per HPI. Rest of the review of systems is negative. PHYSICAL EXAMINATION: GENERAL: The patient is thin and frail, not in acute distress. VITAL SIGNS: Temperature 37.3, pulse 87, respiratory rate 17, blood pressure 103/70, oxygen 93% on 5 liters. HEENT: Pupils equal, round, and reactive to light. Oral mucosa moist. NECK: No JVD, no neck masses. CARDIOVASCULAR: S1 and S2 heard. Regular rate and rhythm. No murmur, no gallop. RESPIRATORY SYSTEM: Normal AP diameter. Mild occasional wheezing, no crackles. No accessory muscle use. ABDOMEN: Soft, bowel sounds present, nontender, no distention. CENTRAL NERVOUS SYSTEM: Cranial nerves II-XII grossly intact, nonfocal. EXTREMITIES: No edema, no erythema. LABORATORY DATA: WBC 7.3, hemoglobin 5.4, hematocrit 18.1, platelets 232. PT 10.5, INR 1. Sodium 131, potassium 5.4, chloride 103, BUN 22, creatinine 0.6, serum glucose 90, magnesium 2.5, total bilirubin 0.2, direct bilirubin less than 0.1, AST 67, ALT 109, alkaline phosphatase 139, ammonia 23.6. Troponin 1.45. Urinalysis negative. SARS-CoV-2 PCR negative. Ethyl alcohol less than 3. IMAGING DATA: CT of the head, no acute findings. Chest x-ray, no obvious acute findings. EKG: Sinus rhythm with first-degree AV block at a rate of 77, no significant change was found. ASSESSMENT AND PLAN: This is a 55-year-old female who presents with syncope and also complains of chest pain and found to have anemia, non-ST elevated myocardial infarction. 1. Symptomatic anemia: Hemoglobin of 5.4. No obvious bleeding at home. History of gastrointestinal bleed in the past. Will hold her aspirin and Plavix. Will transfuse 2 units of PRBCs for now. Follow H and H q. 6 hours. Stool for Hemoccult. Will place on Protonix drip and consult GI and keep her n.p.o. and closely monitor in the tele floor. 2. Non-ST elevated myocardial infarction: Troponin of 1.45. EKG, no acute findings. The patient complains of chest pain. May be demand ischemia from her significant anemia.Will follow serial CE and echo. Consult cardiology. 3. History of coronary artery disease: Status post LAD stenting as well as vasospastic angina. Currently, holding on aspirin and Plavix because of significant anemia until GI bleed is ruled out.Cardiology consulted.. History of significant GI bleed in the past as per the patient: Continue her home medication of diltiazem, isosorbide mononitrate. Closely monitor. Follow the echocardiogram. 4. History of VT arrest due to coronary artery vasospasm versus acquired QT prolongation with azithromycin exposure, status post single chamber AICD. 5. History of peripheral artery disease with superficial femoral artery occlusion, left subclavian artery stenosis. Currently, holding aspirin and Plavix. Continue her statin. 6. History of myotonic muscular dystrophy: Continue to monitor. PT, OT when stable. 7. History of pulmonary embolism: Coumadin discontinued due to GI bleeding, in 2009. 8. History of left carotid endarterectomy in 2016. 9. Chronic obstructive pulmonary disease: Continue home inhalers. 10. History of chronic pain: Continue home pain medications.dilaudid prn 11. History of seizures: Continue her home meds and will change her home p.o. medication to IV Keppra and IV phenytoin. 12. Diastolic congestive heart failure: Continue home Lasix and lisinopril and nitrate. Monitor for any volume overload. 13. Hypertension: Continue diltiazem, isosorbide dinitrate, lisinopril, diuretics.prazosin Will monitor the blood pressure. 14. Gastroesophageal reflux disease: Currently placed on PPI drip. 15. Deep venous thrombosis prophylaxis: Sequential compression devices for now. DISPOSITION: Closely monitor in the tele floor. Level 1 full code. PT/OT prior to discharge. Social service to help with discharge planning. Job ID: [id number] [facility]ITALRobles
[2021-05-16] MEDS ORDERED: ACETAMINOPHEN 325 MG TAB PO PRN (08:17)
[2021-05-16] MEDS ORDERED: ALBUTEROL HFA 8 GM INHALER INH PRN (08:17)
[2021-05-16] MEDS ORDERED: NITROGLYCERIN SL 0.4 MG/TAB TAB SL PRN (08:17)
[2021-05-16] MEDS ORDERED: EPINEPHrine ADULT AUTO-INJECT 0.3 MG SYR IM PRN (08:17)
[2021-05-16] MEDS ORDERED: ISOSORBIDE DINITRATE 5 MG TAB PO PRN (08:17)
[2021-05-16] MEDS ORDERED: ONDANSETRON INJ 2 MG/ML 2 ML VIAL IV PRN (08:17)
--- NOTE | 2021-05-16 08:39 | XRay Report ---
XR chest 1V portable CLINICAL HISTORY: syncope COMPARISON STUDY: January 29, 2015 FINDINGS: No pneumothorax. No pleural effusion. Lung volumes are increased and associated with flattening of right and left hemidiaphragms. Diffuse r eticular opacities are seen within bilateral mid to lower lungs, but no definitely seen on prior and might represent pulmonary edema or scattered atelectasis. Questionable linear density seen projecting over right apex, could represent superimposition of soft tissue versus other etiology. Cardiomediastinal silhouette is within upper limits of normal. Aorta is calcified. Pulmonary vasculature is indistinct.. Stable position of single lead left-sided AICD with battery pac k partially obscuring left lung parenchyma. Osseous structures: Wall degenerative changes of the spine. IMPRESSION: 1. COPD pattern. Possible pulmonary edema. 2. Atherosclerosis. 3. Cardiomediastinal silhouette is within upper limits of normal. Stable position of left-sided AICD . 4. Questionable linear density projecting to the right apex, could be due to superimposition of stru ctures versus other etiology. Short-term follow-up with PA and lateral chest radiograph on nonemergen cy basis is suggested. ACT 112: Negative or not required by law. The above report was generated using voice recognition software. It may contain grammatical, syntax o r spelling errors. Electronically signed by: Michelle Beck DO 05/16/2021 8:38 AM
[2021-05-16] MEDS ORDERED: POTASSIUM CHLORIDE CRTAB 20 MEQ TABCR PO SCH (09:00)
--- NOTE | 2021-05-16 09:04 | Cardiology Consultation ---
Date of Consultation May 16, 2021 Assessment & Plan (1) Anemia: (2) Presence of stent in LAD coronary artery: (3) Chest pain: (4) Prinzmetal angina: (5) Postoperative deep vein thrombosis: (6) PAD (peripheral artery disease): (7) H/O diastolic dysfunction: At this point I do not see any ischemic cause to her troponin elevation. She carries a history of coronary artery disease and microvascular dysfunction and her severe anemia likely prompted demand ischemia. Obviously, she should not be anticoagulated at this time. Continue low-dose daily aspirin but okay to hold Plavix for the time being. We will check 2D echocardiogram to evaluate for any new wall motion abnormalities. We will also check her device to evaluate for any arrhythmias during her syncopal event. Given her history of coronary artery disease and recent chest discomfort goal hemoglobin is above 10. History of Present Illness Reason for Consultation: elevated troponin and chest pain Requesting Physician: Dr. Ramos Attending Physician: Jessica Guerrero MD History of Present Illness The patient is a very pleasant 55-year-old woman who routinely follows with Dr. Desai of our cardiology practice. She presented to [facility] on May 15, 2021 with reports of a syncopal episode. She states that for the last several weeks she has been noticing more more shortness of breath with exertion. Then on the evening of the she was sitting on the side of her bed when she suddenly lost consciousness. She was brought into the emergency department and she was found to be severely anemic with a hemoglobin of 5.4. She was also slightly hypoxic and she was admitted to telemetry. She states that she has been having occasional chest pain as of late which is similar to her chronic stable angina. A troponin level was drawn in the emergency department that was slightly elevated but EKG revealed no acute ischemic changes. Currently she is short of breath at rest stating that she needs an albuterol treatment. She is received 2 units of packed red blood cells so far and a dose of IV Lasix. She has been seen by our GI colleagues as well. Past medical history as per most recent outpatient cardiology visit: 1. History of CAD past LAD stenting as well as vasospastic angina 2. Past VT arrest, due to coronary artery vasospasm versus acquired QT prolongation withazithromycinexposure, prompting CPR was successful resuscitation and implantation of single-chamber AICD 3. Most recent LVEF >70% by nuclear Gated SPECT in 2016. 4. Peripheral arterial disease with left superficial femoral artery occlusion, left subclavian artery stenosis 5. Type 2 myotonic dystrophy 6. Past pulmonary embolism, Coumadindiscontinueddue to gastrointestinal bleeding in 2009 7. History of left carotid endarterectomy, 2016 Allergies Allergy/AdvReac Type Severity Reaction Status Date / Time bee venom protein (honey bee) Allergy Unknown , Verified 05/15/21 23:32 latex Allergy Unknown 0 Verified 05/15/21 23:32 meperidine Allergy Unknown ? Verified 05/15/21 23:32 scopolamine Allergy Unknown 0 Verified 05/15/21 23:32 levofloxacin AdvReac Intermediate QTC Verified 05/15/21 23:32 PROLONGATION H/O VF ARREST diphenhydramine AdvReac Mild "ARTERITAL Verified 05/15/21 23:32 SPASMS" COLD AdvReac Unknown VASCULAR Uncoded 05/15/21 23:32 COLLAPSE SYNDROME Home Medications Medication Instructions Recorded Confirmed Type albuterol sulfate 90 mcg/actuation 2 puff INHALATION Q4 PRN 05/15/21 05/15/21 History aerosol inhaler aspirin 81 mg tablet,delayed 81 mg PO DAILY 05/15/21 05/15/21 History release atorvastatin 80 mg tablet 80 mg PO HS 05/15/21 05/15/21 History clopidogrel 75 mg tablet 75 mg PO DAILY 05/15/21 05/15/21 History diltiazem HCl 240 mg capsule,24 480 mg PO DAILY 05/15/21 05/15/21 History hr,extended release epinephrine 0.3 mg/0.3 mL 0.3 mg IM UD PRN 05/15/21 05/15/21 History injection, auto-injector (EpiPen) fluticasone propionate 50 2 spray INTRANASAL DAILY 05/15/21 05/15/21 History mcg/actuation nasal spray,suspension furosemide 20 mg tablet 20 mg PO DAILY 05/15/21 05/15/21 History gabapentin 600 mg tablet 600 mg PO TID 05/15/21 05/15/21 History isosorbide dinitrate 5 mg tablet 5 mg PO . EVERY 3 HOURS PRN 05/15/21 05/15/21 History isosorbide mononitrate 120 mg 120 mg PO AMPM 05/15/21 05/15/21 History tablet,extended release 24 hr levetiracetam 1,000 mg tablet 1,000 mg PO BID 05/15/21 05/15/21 History lisinopril 5 mg tablet 10 mg PO DAILY 05/15/21 05/15/21 History loratadine 10 mg tablet 10 mg PO DAILY 05/15/21 05/15/21 History morphine 30 mg tablet,extended 30 mg PO BID 05/15/21 05/15/21 History release omeprazole 20 mg capsule,delayed 20 mg PO DAILY 05/15/21 05/15/21 History release oxycodone 5 mg tablet 5 mg PO Q6 PRN 05/15/21 05/15/21 History phenytoin sodium extended 100 mg 100 mg PO TID 05/15/21 05/15/21 History capsule potassium chloride 20 mEq 40 meq PO DAILY 05/15/21 05/15/21 History tablet,extended release(part/cryst) prazosin 1 mg capsule 1 mg PO BID 05/15/21 05/15/21 History protein 500 mg chewable tablet 500 mg PO DAILY 05/15/21 05/15/21 History tizanidine 4 mg tablet 4 mg PO Q8 PRN 05/15/21 05/15/21 History trazodone 50 mg tablet 100 mg PO HS 05/15/21 05/15/21 History Patient History Social History Smoking Status: Smoker, status unknown Tobacco Type: Cigarettes Second Hand Exposure: No; Do You Dip or Chew Tobacco: No; Tobacco Cessation Education Requested by Patient: No Hx Alcohol Use: No Hx Substance Use: Yes Last Used Substance: Days (ago) Communication Ability: Effective Beliefs That Will Affect Care: None marital status: Current Living Situation: Family Other Information That Helps Us Care for You: No Feels Safe at Home: Yes Safety Concerns: Feels Safe At This Time Assistive Devices: Cane, Walker and Wheelchair Review of Systems Review of Systems: All systems reviewed & are unremarkable except as noted in HPI & below Physical Exam Physical Exam: General: Awake, alert and oriented x 3. No acute distress. HEENT: Normocephalic, atraumatic. Pupils equal, round and reactive to light and accommodation. Extraocular muscles are intact. Anicteric sclera. Moist mucous membranes. Neck: No JVD. No bruit. Cardiovascular: Regular. Positive S-4. Normal S-1 and S-2. No S-3. No murmurs or rubs. Pulmonary: Coarse breath sounds diffusely with scattered rhonchi and wheezing along with fibrotic rales. Abdomen: Bowel sounds x 4, soft. No rebound, guarding or tenderness. No organomegaly. Extremities: No clubbing, cyanosis or edema. +2 pedal pulses bilaterally. Skin: Warm and dry. Results & Data ([facility]) Vital Signs (Past 12 Hours) Vital Signs Temp Pulse Pulse Resp BP BP BP 05/16/21 07:54 36.5 C 87 24 141/83 H 05/16/21 07:53 36.7 C 88 22 141/83 H 05/16/21 06:40 78 23 135/76 05/16/21 05:50 75 23 89/57 L 05/16/21 05:30 36.9 C 78 13 90/56 L 05/16/21 05:15 82 19 84/59 L 05/16/21 05:00 36.8 C 83 28 H 91/59 L 05/16/21 04:45 37.3 C 90 88 20 103/70 05/16/21 04:30 91 H 23 109/70 05/16/21 04:27 37.2 C 95 H 14 112/72 05/16/21 04:20 37.3 C 89 14 112/72 05/16/21 04:10 37.2 C 84 12 95/65 L 05/16/21 04:00 81 18 100/67 05/16/21 03:45 79 17 125/69 05/16/21 03:30 80 22 99/76 L 05/16/21 03:15 79 16 114/72 05/16/21 03:10 37.0 C 81 20 113/69 05/16/21 03:00 81 18 106/68 05/16/21 02:45 79 19 106/65 05/16/21 02:40 36.8 C 75 20 92/62 L 05/16/21 02:30 76 22 95/55 L 05/16/21 02:25 36.9 C 76 20 87/57 L 05/16/21 02:10 36.8 C 75 16 89/60 L 05/16/21 02:00 78 15 92/60 L 05/16/21 01:40 73 17 05/16/21 01:00 75 19 97/61 L 05/16/21 00:30 69 22 99/60 L 05/16/21 00:26 77 14 97/60 L 05/15/21 23:59 76 14 94/52 L 05/15/21 22:24 75 22 05/15/21 22:22 36.6 C 85 22 106/49 L Pulse Ox 05/16/21 07:54 90 05/16/21 07:53 94 05/16/21 06:40 99 05/16/21 05:50 95 05/16/21 05:30 96 05/16/21 05:15 94 05/16/21 05:00 95 05/16/21 04:45 95 05/16/21 04:30 90 05/16/21 04:27 91 05/16/21 04:20 89 L 05/16/21 04:10 90 05/16/21 04:00 91 05/16/21 03:45 88 L 05/16/21 03:30 92 05/16/21 03:15 90 05/16/21 03:10 94 05/16/21 03:00 96 05/16/21 02:45 95 05/16/21 02:40 94 05/16/21 02:30 95 05/16/21 02:25 95 05/16/21 02:10 97 05/16/21 02:00 91 05/16/21 01:40 92 05/16/21 01:00 92 05/16/21 00:30 91 05/16/21 00:26 94 05/15/21 23:59 94 05/15/21 22:24 93 05/15/21 22:22 93
[2021-05-16] MEDS: FUROSEMIDE 20 MG TAB PO SCH (09:16)
[2021-05-16] MEDS: HYDROmorphone INJ 0.5 MG/0.5 ML SYR IV PRN (09:19)
[2021-05-16] MEDS: FLUTICASONE PROPIONATE NA SPR 16 GM BTL SCH (09:20)
[2021-05-16] MEDS: GABAPENTIN 600 MG TAB PO SCH ×3 (09:21→20:01)
[2021-05-16] MEDS: lisinopril 10 MG TAB PO SCH (09:21)
[2021-05-16] MEDS: LORATADINE 10 MG TAB PO SCH (09:21)
[2021-05-16] MEDS: tiZANidine HCL 4 MG TABLET PO PRN (09:21)
[2021-05-16] MEDS: PHENYTOIN 100 MG in SYRINGE 0 ML IV SCH ×3 (09:21→20:03)
[2021-05-16] MEDS: SODIUM CHLORIDE 0.9% 10ML FLUSH IV SCH ×3 (09:22→20:00)
[2021-05-16] MEDS: PANTOprazole 40 MG TAB PO SCH (09:22)
[2021-05-16] MEDS: PRAZOSIN HCL 1 MG CAP PO SCH ×2 (09:22→20:04)
[2021-05-16] MEDS: dilTIAZem ER 120 MG CAPCR PO SCH (09:22)
[2021-05-16] MEDS: ISOSORBIDE MONO EXTENDED REL 60 MG TABCR PO SCH ×2 (09:22→20:02)
--- NOTE | 2021-05-16 09:22 | Gastrointestinal Consultation ---
Date of Consultation May 16, 2021 Assessment & Plan (1) Anemia: 55-year-old female with the above comorbidities, admitted after presenting with syncope and chest pain, found to have severe acute on chronic anemia without GI bleeding. She has had no GI bleeding overnight, awaiting second unit of PRBC. Etiology of severe anemia unclear, though would be prudent to rule out GI source of blood loss. On exam abd is soft. - Continue IV PPI - Monitor H&H, transfuse as needed - We will plan EGD today after hemoglobin is > 7, r/o PUD/gastritis/esophagitis/AVM etc - Monitor GI output - Please correct electrolytes - Continue supportive care as per ICU team Supervising Physician Co-Signing Physician Notes I performed a history and physical examination of the patient today, including specifically on physical exam - soft abdomen. I have discussed the patient's management with the advanced practitioner. Please refer to the nurse practitioner's note for the documented findings and plan of care. No overt ongoing GI bleeding, Patient denies any signs or symptoms to suggest GI bleeding, no melena or rectal bleeding. At this point will hold off on her EGD till she is stable from Cardiac stand point. Use PPI for now. Check labs to r/o Hemolytic anemia. Consider CT scan to r/o retroperitoneal bleeding. History of Present Illness Reason for Consultation: severe anemia Requesting Physician: Dr. Ramos Attending Physician: Jessica Guerrero MD History of Present Illness This is a 55-year-old female with PMH COPD, tobacco use, diastolic CHF, HTN, CAD, GERD, status post ICD, substance abuse, and others admitted yesterday after episode of syncope. Upon arrival to the ER, found to have acute on chronic severe anemia with Hgb 5.4, crit 18, BUN 22, Na 131. Last HGB was 10.5 in 10/2020 per Epic chart. She is complaining of some chest pain, troponin I 0.45, EKG sinus rhythm with first- degree AV block. She was started on a PPI drip. CXR w/ COPD poss pulm edema. Overnight, has had no hematemesis, melena or hematochezia. She did receive 1 unit of blood, with another one ordered. Repeat H&H pending. This morning patient is having coughing episodes with intermittent gagging, making HPI limited. In general denies no vomiting blood, or blood or black stool at home. Bowels move regularly, soft and brown. Denies abdominal pain. No NSAID use. She is on aspirin and Plavix which are being held. She does smoke. Prior history of GI bleeding. In 2009 had EGD/colonoscopy as below: EGD 2009: Normal esophagus. - Z-line regular,. - Gastric mucosal abnormality characterized by erythema. This was biopsied. - Normal examined duodenum. Colonoscopy 2009: - The examined portion of the ileum was normal. - The entire examined colon is normal. Biopsied Allergies Allergy/AdvReac Type Severity Reaction Status Date / Time bee venom protein (honey bee) Allergy Unknown , Verified 05/15/21 23:32 latex Allergy Unknown 0 Verified 05/15/21 23:32 meperidine Allergy Unknown ? Verified 05/15/21 23:32 scopolamine Allergy Unknown 0 Verified 05/15/21 23:32 levofloxacin AdvReac Intermediate QTC Verified 05/15/21 23:32 PROLONGATION H/O VF ARREST diphenhydramine AdvReac Mild "ARTERITAL Verified 05/15/21 23:32 SPASMS" COLD AdvReac Unknown VASCULAR Uncoded 05/15/21 23:32 COLLAPSE SYNDROME Home Medications Medication Instructions Recorded Confirmed Type albuterol sulfate 90 mcg/actuation 2 puff INHALATION Q4 PRN 05/15/21 05/15/21 History aerosol inhaler aspirin 81 mg tablet,delayed 81 mg PO DAILY 05/15/21 05/15/21 History release atorvastatin 80 mg tablet 80 mg PO HS 05/15/21 05/15/21 History clopidogrel 75 mg tablet 75 mg PO DAILY 05/15/21 05/15/21 History diltiazem HCl 240 mg capsule,24 480 mg PO DAILY 05/15/21 05/15/21 History hr,extended release epinephrine 0.3 mg/0.3 mL 0.3 mg IM UD PRN 05/15/21 05/15/21 History injection, auto-injector (EpiPen) fluticasone propionate 50 2 spray INTRANASAL DAILY 05/15/21 05/15/21 History mcg/actuation nasal spray,suspension furosemide 20 mg tablet 20 mg PO DAILY 05/15/21 05/15/21 History gabapentin 600 mg tablet 600 mg PO TID 05/15/21 05/15/21 History isosorbide dinitrate 5 mg tablet 5 mg PO . EVERY 3 HOURS PRN 05/15/21 05/15/21 History isosorbide mononitrate 120 mg 120 mg PO AMPM 05/15/21 05/15/21 History tablet,extended release 24 hr levetiracetam 1,000 mg tablet 1,000 mg PO BID 05/15/21 05/15/21 History lisinopril 5 mg tablet 10 mg PO DAILY 05/15/21 05/15/21 History loratadine 10 mg tablet 10 mg PO DAILY 05/15/21 05/15/21 History morphine 30 mg tablet,extended 30 mg PO BID 05/15/21 05/15/21 History release omeprazole 20 mg capsule,delayed 20 mg PO DAILY 05/15/21 05/15/21 History release oxycodone 5 mg tablet 5 mg PO Q6 PRN 05/15/21 05/15/21 History phenytoin sodium extended 100 mg 100 mg PO TID 05/15/21 05/15/21 History capsule potassium chloride 20 mEq 40 meq PO DAILY 05/15/21 05/15/21 History tablet,extended release(part/cryst) prazosin 1 mg capsule 1 mg PO BID 05/15/21 05/15/21 History protein 500 mg chewable tablet 500 mg PO DAILY 05/15/21 05/15/21 History tizanidine 4 mg tablet 4 mg PO Q8 PRN 05/15/21 05/15/21 History trazodone 50 mg tablet 100 mg PO HS 05/15/21 05/15/21 History Patient History Social History Smoking Status: Smoker, status unknown Tobacco Type: Cigarettes Second Hand Exposure: No; Do You Dip or Chew Tobacco: No; Tobacco Cessation Education Requested by Patient: No Hx Alcohol Use: No Hx Substance Use: Yes Last Used Substance: Days (ago) Communication Ability: Effective Beliefs That Will Affect Care: None marital status: Current Living Situation: Family Other Information That Helps Us Care for You: No Feels Safe at Home: Yes Safety Concerns: Feels Safe At This Time Assistive Devices: Cane, Walker and Wheelchair Review of Systems Constitutional: as per Subjective / HPI; no fever and no chills Respiratory: as per Subjective / HPI, + cough and + dyspnea Cardiovascular: as per Subjective / HPI, + chest pain and + dyspnea; no edema Gastrointestinal: as per Subjective / HPI Integumentary: no rash and no lesions Physical Exam Constitutional: well developed and + ill appearing Eyes: PERRL, conjunctivae normal, anicteric sclerae Neck: trachea midline, no thyromegaly Respiratory: frequent hacky coughing; intermittently taking Oxymask off; some post-tussive gagging, scattered coarse sounds bilaterally Cardiovascular: Rate/Rhythm: regular rate and regular rhythm Heart Sounds: no murmur Extremities: no edema Gastrointestinal (Abdomen): normal bowel sounds, soft, nontender, no hepatosplenomegaly Skin: no rashes, warm and dry Psychiatric: A+Ox3, euthymic affect Results & Data ([facility]) Vital Signs (Past 12 Hours) Vital Signs Temp Pulse Pulse Resp BP BP BP 05/16/21 07:54 36.5 C 87 24 141/83 H 05/16/21 07:53 36.7 C 88 22 141/83 H 05/16/21 06:40 78 23 135/76 05/16/21 05:50 75 23 89/57 L 05/16/21 05:30 36.9 C 78 13 90/56 L 05/16/21 05:15 82 19 84/59 L 05/16/21 05:00 36.8 C 83 28 H 91/59 L 05/16/21 04:45 37.3 C 90 88 20 103/70 05/16/21 04:30 91 H 23 109/70 05/16/21 04:27 37.2 C 95 H 14 112/72 05/16/21 04:20 37.3 C 89 14 112/72 05/16/21 04:10 37.2 C 84 12 95/65 L 05/16/21 04:00 81 18 100/67 05/16/21 03:45 79 17 125/69 05/16/21 03:30 80 22 99/76 L 05/16/21 03:15 79 16 114/72 05/16/21 03:10 37.0 C 81 20 113/69 05/16/21 03:00 81 18 106/68 05/16/21 02:45 79 19 106/65 05/16/21 02:40 36.8 C 75 20 92/62 L 05/16/21 02:30 76 22 95/55 L 05/16/21 02:25 36.9 C 76 20 87/57 L 05/16/21 02:10 36.8 C 75 16 89/60 L 05/16/21 02:00 78 15 92/60 L 05/16/21 01:40 73 17 05/16/21 01:00 75 19 97/61 L 05/16/21 00:30 69 22 99/60 L 05/16/21 00:26 77 14 97/60 L 05/15/21 23:59 76 14 94/52 L 05/15/21 22:24 75 22 05/15/21 22:22 36.6 C 85 22 106/49 L Pulse Ox 05/16/21 07:54 90 05/16/21 07:53 94 05/16/21 06:40 99 05/16/21 05:50 95 05/16/21 05:30 96 05/16/21 05:15 94 05/16/21 05:00 95 05/16/21 04:45 95 05/16/21 04:30 90 05/16/21 04:27 91 05/16/21 04:20 89 L 05/16/21 04:10 90 05/16/21 04:00 91 05/16/21 03:45 88 L 05/16/21 03:30 92 05/16/21 03:15 90 05/16/21 03:10 94 05/16/21 03:00 96 05/16/21 02:45 95 05/16/21 02:40 94 05/16/21 02:30 95 05/16/21 02:25 95 05/16/21 02:10 97 05/16/21 02:00 91 05/16/21 01:40 92 05/16/21 01:00 92 05/16/21 00:30 91 05/16/21 00:26 94 05/15/21 23:59 94 05/15/21 22:24 93 05/15/21 22:22 93 Laboratory Results 05/16/21 05/16/21 05/16/21 Range/Units 09:16 08:28 08:28 WBC (4.8-10.8) K/uL RBC (4.2-5.4) M/uL Hgb Pending (12.0-16.0) g/dL Hct Pending (37-47) % MCV (80-100) fL MCH (25-34) pg MCHC (32-36) g/dL RDW Std Deviation (36.4-46.3) fL RDW Coeff of Lola (11.5-14.5) % Plt Count (130-400) K/uL MPV (7.4-10.4) fL Immature Gran % (Auto) % Neut % (Auto) % Lymph % (Auto) % [place] % (Auto) % Eos % (Auto) % Baso % (Auto) % Neut # (Auto) (1.4-6.5) K/uL Lymph # (Auto) (1.2-3.4) K/uL [place] # (Auto) (0.11-0.59) K/uL Eos # (Auto) (0-0.5) K/uL Baso # (Auto) (0-0.2) K/uL Immature Gran # (Auto) (0.00-0.02) K/uL Giant Platelets Hypochromasia Poikilocytosis PT (9.0-12.0) Seconds INR (0.9-1.1) Sodium Pending (136-145) mmol/L Potassium Pending (3.5-5.1) mmol/L Chloride Pending (98-107) mmol/L Carbon Dioxide Pending (21-32) mmol/L Anion Gap Pending (3-11) BUN Pending (7-18) mg/dl Creatinine Pending (0.6-1.2) mg/dl Est Cr Clr Drug Dosing Pending ml/min Est GFR ( Amer) Pending ml/min Est GFR (Non-Af Amer) Pending ml/min BUN/Creatinine Ratio Pending (10-20) Glucose Pending (70-99) mg/dl Calcium Pending (8.5-10.1) mg/dl Magnesium (1.8-2.4) mg/dl Total Bilirubin (0.2-1) mg/dl Direct Bilirubin (0-0.2) mg/dl AST (15-37) U/L ALT (12-78) U/L Alkaline Phosphatase (45-117) U/L Ammonia (11-32) umol/L Total Creatine Kinase (26-192) U/L Troponin I 1.270 H* (0-0.045) ng/ml Total Protein (6.4-8.2) gm/dl Albumin (3.4-5.0) gm/dl Urine Color Urine Appearance (Clear) Urine pH (4.5-7.5) Ur Specific [place] (1.000-1.030) Urine Protein (Negative) Urine Glucose (UA) (Negative) Urine Ketones (Negative) Urine Blood (Negative) Urine Nitrite (Negative) Urine Bilirubin (Negative) Urine Urobilinogen (Negative) Ur Leukocyte Esterase (Negative) Ethyl Alcohol mg/dL (0-3) mg/dl COVID-19 Eval Order SARS-CoV-2 (PCR) (Negative) Blood Type Blood Type Recheck Antibody Screen Crossmatch 05/16/21 05/16/21 05/16/21 Range/Units 08:12 01:45 00:22 WBC (4.8-10.8) K/uL RBC (4.2-5.4) M/uL Hgb (12.0-16.0) g/dL Hct (37-47) % MCV (80-100) fL MCH (25-34) pg MCHC (32-36) g/dL RDW Std Deviation (36.4-46.3) fL RDW Coeff of Lola (11.5-14.5) % Plt Count (130-400) K/uL MPV (7.4-10.4) fL Immature Gran % (Auto) % Neut % (Auto) % Lymph % (Auto) % [place] % (Auto) % Eos % (Auto) % Baso % (Auto) % Neut # (Auto) (1.4-6.5) K/uL Lymph # (Auto) (1.2-3.4) K/uL [place] # (Auto) (0.11-0.59) K/uL Eos # (Auto) (0-0.5) K/uL Baso # (Auto) (0-0.2) K/uL Immature Gran # (Auto) (0.00-0.02) K/uL Giant Platelets Hypochromasia Poikilocytosis PT (9.0-12.0) Seconds INR (0.9-1.1) Sodium (136-145) mmol/L Potassium (3.5-5.1) mmol/L Chloride (98-107) mmol/L Carbon Dioxide (21-32) mmol/L Anion Gap (3-11) BUN (7-18) mg/dl Creatinine (0.6-1.2) mg/dl Est Cr Clr Drug Dosing ml/min Est GFR ( Amer) ml/min Est GFR (Non-Af Amer) ml/min BUN/Creatinine Ratio (10-20) Glucose (70-99) mg/dl Calcium (8.5-10.1) mg/dl Magnesium (1.8-2.4) mg/dl Total Bilirubin (0.2-1) mg/dl Direct Bilirubin (0-0.2) mg/dl AST (15-37) U/L ALT (12-78) U/L Alkaline Phosphatase (45-117) U/L Ammonia (11-32) umol/L Total Creatine Kinase (26-192) U/L Troponin I (0-0.045) ng/ml Total Protein (6.4-8.2) gm/dl Albumin (3.4-5.0) gm/dl Urine Color Yellow Urine Appearance Clear (Clear) Urine pH 5.0 (4.5-7.5) Ur Specific [place] 1.010 (1.000-1.030) Urine Protein Negative (Negative) Urine Glucose (UA) Negative (Negative) Urine Ketones Negative (Negative) Urine Blood Negative (Negative) Urine Nitrite Negative (Negative) Urine Bilirubin Negative (Negative) Urine Urobilinogen Negative (Negative) Ur Leukocyte Esterase Negative (Negative) Ethyl Alcohol mg/dL < 3.0 (0-3) mg/dl COVID-19 Eval Order SARS-CoV-2 (PCR) (Negative) Blood Type Blood Type Recheck O Positive Antibody Screen Crossmatch 05/16/21 05/16/21 05/16/21 Range/Units 00:22 00:22 00:22 WBC 7.27 (4.8-10.8) K/uL RBC 2.28 L (4.2-5.4) M/uL Hgb 5.4 L* (12.0-16.0) g/dL Hct 18.1 L* (37-47) % MCV 79.4 L (80-100) fL MCH 23.7 L (25-34) pg MCHC 29.8 L (32-36) g/dL RDW Std Deviation 47.9 H (36.4-46.3) fL RDW Coeff of Lola 16.5 H (11.5-14.5) % Plt Count 232 (130-400) K/uL MPV 10.1 (7.4-10.4) fL Immature Gran % (Auto) 0.3 % Neut % (Auto) 77.9 % Lymph % (Auto) 11.8 % [place] % (Auto) 9.8 % Eos % (Auto) 0.1 % Baso % (Auto) 0.1 % Neut # (Auto) 5.66 (1.4-6.5) K/uL Lymph # (Auto) 0.86 L (1.2-3.4) K/uL [place] # (Auto) 0.71 H (0.11-0.59) K/uL Eos # (Auto) 0.01 (0-0.5) K/uL Baso # (Auto) 0.01 (0-0.2) K/uL Immature Gran # (Auto) 0.02 (0.00-0.02) K/uL Giant Platelets 1+ Hypochromasia Present Poikilocytosis Present PT 10.5 (9.0-12.0) Seconds INR 1.0 (0.9-1.1) Sodium 131 L (136-145) mmol/L Potassium 5.4 H (3.5-5.1) mmol/L Chloride 103 (98-107) mmol/L Carbon Dioxide 22 (21-32) mmol/L Anion Gap 6.0 (3-11) BUN 22 H (7-18) mg/dl Creatinine 0.63 (0.6-1.2) mg/dl Est Cr Clr Drug Dosing 76.7 ml/min Est GFR ( Amer) 116.2 ml/min Est GFR (Non-Af Amer) 100.3 ml/min BUN/Creatinine Ratio 34.6 H (10-20) Glucose 90 (70-99) mg/dl Calcium 7.9 L (8.5-10.1) mg/dl Magnesium 2.5 H (1.8-2.4) mg/dl Total Bilirubin 0.2 (0.2-1) mg/dl Direct Bilirubin < 0.1 (0-0.2) mg/dl AST 67 H (15-37) U/L ALT 109 H (12-78) U/L Alkaline Phosphatase 139 H (45-117) U/L Ammonia (11-32) umol/L Total Creatine Kinase 109 (26-192) U/L Troponin I 1.450 H* (0-0.045) ng/ml Total Protein 6.1 L (6.4-8.2) gm/dl Albumin 3.0 L (3.4-5.0) gm/dl Urine Color Urine Appearance (Clear) Urine pH (4.5-7.5) Ur Specific [place] (1.000-1.030) Urine Protein (Negative) Urine Glucose (UA) (Negative) Urine Ketones (Negative) Urine Blood (Negative) Urine Nitrite (Negative) Urine Bilirubin (Negative) Urine Urobilinogen (Negative) Ur Leukocyte Esterase (Negative) Ethyl Alcohol mg/dL (0-3) mg/dl COVID-19 Eval Order SARS-CoV-2 (PCR) (Negative) Blood Type Blood Type Recheck Antibody Screen Crossmatch 05/16/21 05/16/21 05/16/21 Range/Units 00:22 00:22 00:15 WBC (4.8-10.8) K/uL RBC (4.2-5.4) M/uL Hgb (12.0-16.0) g/dL Hct (37-47) % MCV (80-100) fL MCH (25-34) pg MCHC (32-36) g/dL RDW Std Deviation (36.4-46.3) fL RDW Coeff of Lola (11.5-14.5) % Plt Count (130-400) K/uL MPV (7.4-10.4) fL Immature Gran % (Auto) % Neut % (Auto) % Lymph % (Auto) % [place] % (Auto) % Eos % (Auto) % Baso % (Auto) % Neut # (Auto) (1.4-6.5) K/uL Lymph # (Auto) (1.2-3.4) K/uL [place] # (Auto) (0.11-0.59) K/uL Eos # (Auto) (0-0.5) K/uL Baso # (Auto) (0-0.2) K/uL Immature Gran # (Auto) (0.00-0.02) K/uL Giant Platelets Hypochromasia Poikilocytosis PT (9.0-12.0) Seconds INR (0.9-1.1) Sodium (136-145) mmol/L Potassium (3.5-5.1) mmol/L Chloride (98-107) mmol/L Carbon Dioxide (21-32) mmol/L Anion Gap (3-11) BUN (7-18) mg/dl Creatinine (0.6-1.2) mg/dl Est Cr Clr Drug Dosing ml/min Est GFR ( Amer) ml/min Est GFR (Non-Af Amer) ml/min BUN/Creatinine Ratio (10-20) Glucose (70-99) mg/dl Calcium (8.5-10.1) mg/dl Magnesium (1.8-2.4) mg/dl Total Bilirubin (0.2-1) mg/dl Direct Bilirubin (0-0.2) mg/dl AST (15-37) U/L ALT (12-78) U/L Alkaline Phosphatase (45-117) U/L Ammonia 23.6 (11-32) umol/L Total Creatine Kinase (26-192) U/L Troponin I (0-0.045) ng/ml Total Protein (6.4-8.2) gm/dl Albumin (3.4-5.0) gm/dl Urine Color Urine Appearance (Clear) Urine pH (4.5-7.5) Ur Specific [place] (1.000-1.030) Urine Protein (Negative) Urine Glucose (UA) (Negative) Urine Ketones (Negative) Urine Blood (Negative) Urine Nitrite (Negative) Urine Bilirubin (Negative) Urine Urobilinogen (Negative) Ur Leukocyte Esterase (Negative) Ethyl Alcohol mg/dL (0-3) mg/dl COVID-19 Eval Order SARS-CoV-2 (PCR) NEGATIVE (Negative) Blood Type O Positive Blood Type Recheck Antibody Screen NEGATIVE Crossmatch See Detail 05/16/21 Range/Units 00:15 WBC (4.8-10.8) K/uL RBC (4.2-5.4) M/uL Hgb (12.0-16.0) g/dL Hct (37-47) % MCV (80-100) fL MCH (25-34) pg MCHC (32-36) g/dL RDW Std Deviation (36.4-46.3) fL RDW Coeff of Lola (11.5-14.5) % Plt Count (130-400) K/uL MPV (7.4-10.4) fL Immature Gran % (Auto) % Neut % (Auto) % Lymph % (Auto) % [place] % (Auto) % Eos % (Auto) % Baso % (Auto) % Neut # (Auto) (1.4-6.5) K/uL Lymph # (Auto) (1.2-3.4) K/uL [place] # (Auto) (0.11-0.59) K/uL Eos # (Auto) (0-0.5) K/uL Baso # (Auto) (0-0.2) K/uL Immature Gran # (Auto) (0.00-0.02) K/uL Giant Platelets Hypochromasia Poikilocytosis PT (9.0-12.0) Seconds INR (0.9-1.1) Sodium (136-145) mmol/L Potassium (3.5-5.1) mmol/L Chloride (98-107) mmol/L Carbon Dioxide (21-32) mmol/L Anion Gap (3-11) BUN (7-18) mg/dl Creatinine (0.6-1.2) mg/dl Est Cr Clr Drug Dosing ml/min Est GFR ( Amer) ml/min Est GFR (Non-Af Amer) ml/min BUN/Creatinine Ratio (10-20) Glucose (70-99) mg/dl Calcium (8.5-10.1) mg/dl Magnesium (1.8-2.4) mg/dl Total Bilirubin (0.2-1) mg/dl Direct Bilirubin (0-0.2) mg/dl AST (15-37) U/L ALT (12-78) U/L Alkaline Phosphatase (45-117) U/L Ammonia (11-32) umol/L Total Creatine Kinase (26-192) U/L Troponin I (0-0.045) ng/ml Total Protein (6.4-8.2) gm/dl Albumin (3.4-5.0) gm/dl Urine Color Urine Appearance (Clear) Urine pH (4.5-7.5) Ur Specific [place] (1.000-1.030) Urine Protein (Negative) Urine Glucose (UA) (Negative) Urine Ketones (Negative) Urine Blood (Negative) Urine Nitrite (Negative) Urine Bilirubin (Negative) Urine Urobilinogen (Negative) Ur Leukocyte Esterase (Negative) Ethyl Alcohol mg/dL (0-3) mg/dl COVID-19 Eval Order Covid19 at [facility] SARS-CoV-2 (PCR) (Negative) Blood Type Blood Type Recheck Antibody Screen Crossmatch Diagnostic Findings CXR: 1. COPD pattern. Possible pulmonary edema. 2. Atherosclerosis. 3. Cardiomediastinal silhouette is within upper limits of normal. Stable position of left-sided AICD. 4. Questionable linear density projecting to the right apex, could be due to superimposition of structures versus other etiology. Short-term follow-up with PA and lateral chest radiograph on nonemergency basis is suggested.
[2021-05-16] MEDS: levETIRAcetam 1,000 MG in 0.9 % SODIUM CHLORIDE 100 ML IV SCH ×2 (09:29→20:02)
[2021-05-16] MEDS ORDERED: FUROSEMIDE 20 MG in SYRINGE 0 ML IV ONE (09:30)
[2021-05-16 09:54] LABS: Hematocrit (blood only) 28.2 % (37-47); Hemoglobin 8.9 g/dL (12.0-16.0)
[2021-05-16 10:00] LABS: BUN Creatinine Ratio 30.2 (10-20); Calcium 8.7 mg/dl (8.5-10.1); Creatinine Clr Calc Pharmacy 84.7 ml/min; Est GFR (African American) 120.1 ml/min; Est GFR (Non-African American) 103.6 ml/min
[2021-05-16] MEDS: MoRPHine SULFATE CR 15 MG TABCR PO SCH ×2 (10:05→20:07)
[2021-05-16] MEDS ORDERED: LORazepam 0.5 MG TAB PO STA (10:50)
--- NOTE | 2021-05-16 11:13 | History & Physical Bridge Note ---
Date of Service May 16, 2021 History & Physical Bridge Note I have examined the patient, reviewed the History & Physical and in the interval since the performance of the History & Physical I have noted the following changes of clinical significance: no changes noted EGD today Patient was explained in detail regarding risks, benefits, limitations and alternatives of the above endoscopic procedure. Risks of intravenous sedation used for procedure were also explained. Risks include, but not limited to pe rforation, bleeding, infection, respiratory distress, cardiac arrest and . Patient is also aware about the possibility of missed lesion. Patient's questions were answered. The patient verbalized understanding the information and agreed to undergo the procedure.
[2021-05-16 11:31] LABS: Ferritin 12.1 ng/ml (8-388)
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
[2021-05-16 16:55] LABS: Folate (Folic Acid) 10.3 ng/ml (>5.38)
[2021-05-16] MEDS ORDERED: FUROSEMIDE 10 MG in SYRINGE 0 ML IV SCH ×2 (17:00→19:30)
[2021-05-16] MEDS: oxyCODONE HCL IR 5 MG TAB (IMMEDIATE RELEASE) PO PRN ×2 (18:06→23:41)
[2021-05-16 18:08] LABS: Hematocrit (blood only) 29.6 % (37-47); Hemoglobin 9.5 g/dL (12.0-16.0)
[2021-05-16 18:36] LABS: BUN Creatinine Ratio 30.6 (10-20); Calcium 8.1 mg/dl (8.5-10.1); Creatinine Clr Calc Pharmacy 109.8 ml/min; Est GFR (African American) 130.8 ml/min; Est GFR (Non-African American) 112.8 ml/min; Potassium 3.3 mmol/L (3.5-5.1)
[2021-05-16] MEDS: ATORVASTATIN 40 MG TAB PO SCH (20:00)
[2021-05-16] MEDS: traZODone HCL 100 MG TAB PO SCH (20:05)
[2021-05-16 23:38] LABS: Hematocrit (blood only) 32.2 % (37-47); Hemoglobin 10.5 g/dL (12.0-16.0)
[2021-05-17] MEDS: HYDROmorphone INJ 0.5 MG/0.5 ML SYR IV PRN ×2 (03:43→19:52)
[2021-05-17 05:16] LABS: Basophils # (auto) 0.01 K/uL (0-0.2); Basophils % (auto) 0.1 %; Eosinophils # (auto) 0.01 K/uL (0-0.5); Eosinophils % (auto) 0.1 %; Hematocrit (blood only) 33.2 % (37-47); Hemoglobin 10.8 g/dL (12.0-16.0); Immature Granulocytes # (auto) 0.02 K/uL (0.00-0.02); Immature Granulocytes % (auto) 0.2 %; Lymphocytes # (auto) 0.66 K/uL (1.2-3.4); Lymphocytes % (auto) 6.7 %; Mean Corpuscular Hemoglobin 26.5 pg (25-34); Mean Corpuscular Hgb Conc 32.5 g/dL (32-36); Mean Corpuscular Volume 81.4 fL (80-100); Mean Platelet Volume 10.8 fL (7.4-10.4); Monocytes # (auto) 1.02 K/uL (0.11-0.59); Monocytes % (auto) 10.3 %; Neutrophils # (auto) 8.18 K/uL (1.4-6.5); Neutrophils % (auto) 82.6 %; Platelet Count 181 K/uL (130-400); RDW Coefficient of Variation 15.9 % (11.5-14.5); RDW Standard Deviation 46.7 fL (36.4-46.3); Red Blood Count 4.08 M/uL (4.2-5.4)
[2021-05-17 05:33] LABS: BUN Creatinine Ratio 25.5 (10-20); Creatinine Clr Calc Pharmacy 102.8 ml/min; Est GFR (Non-African American) 110.4 ml/min; Magnesium 2.1 mg/dl (1.8-2.4); Potassium 3.2 mmol/L (3.5-5.1)
--- NOTE | 2021-05-17 06:14 | Electrocardiogram Report ---
Test Reason : Blood Pressure : / mmHG Vent. Rate : 077 BPM Atrial Rate : 077 BPM P-R Int : 216 ms QRS Dur : 096 ms QT Int : 378 ms P-R-T Axes : 070 025 102 degrees QTc Int : 427 ms Sinus rhythm with 1st degree A-V block Possible Left atrial enlargement Abnormal ECG When compared with ECG of 29-JAN-2015 14:02, No significant change was found Confirmed by Dawson Shirley ([id number]) on 05/17/2021 6:14:13 AM Referred By: REFERRED SELF Confirmed By:Dawson Shirley
--- NOTE | 2021-05-17 08:18 | Electrocardiogram Report ---
Test Reason : Blood Pressure : / mmHG Vent. Rate : 084 BPM Atrial Rate : 084 BPM P-R Int : 184 ms QRS Dur : 098 ms QT Int : 352 ms P-R-T Axes : 060 027 103 degrees QTc Int : 415 ms Normal sinus rhythm Possible Left atrial enlargement T wave abnormality, consider lateral ischemia Abnormal ECG When compared with ECG of 16-MAY-2021 00:30, TX interval has decreased Confirmed by Dawson Shirley ([id number]) on 05/17/2021 8:17:35 AM Referred By: REFERRED SELF Confirmed By:Dawson Shirley
[2021-05-17] MEDS ORDERED: ASPIRIN 81 MG ECTAB PO SCH (09:00)
--- NOTE | 2021-05-17 09:24 | Communication Note ---
Date of Service: May 17, 2021 Pt remained clinically stable over night. No overt s/s of GI blood loss. Will plan for OP EGD/Colonoscopy. Recall GI as needed. Thank you for allowing us to participate in the care of this patient. Please call with any acute changes, questions or concerns. Please see addendum below with additional recommendation from my supervising physician.
[2021-05-17] MEDS: MoRPHine SULFATE CR 15 MG TABCR PO SCH ×2 (09:40→22:03)
[2021-05-17] MEDS: SODIUM CHLORIDE 0.9% 10ML FLUSH IV SCH ×3 (09:41→19:05)
[2021-05-17] MEDS: PHENYTOIN 100 MG in SYRINGE 0 ML IV SCH (09:41)
[2021-05-17] MEDS: dilTIAZem ER 120 MG CAPCR PO SCH (09:42)
[2021-05-17] MEDS: FUROSEMIDE 20 MG TAB PO SCH (09:43)
[2021-05-17] MEDS: FLUTICASONE PROPIONATE NA SPR 16 GM BTL SCH (09:43)
[2021-05-17] MEDS: GABAPENTIN 600 MG TAB PO SCH ×3 (09:44→21:04)
[2021-05-17] MEDS: ISOSORBIDE MONO EXTENDED REL 60 MG TABCR PO SCH ×2 (09:44→21:05)
[2021-05-17] MEDS: PANTOprazole 40 MG TAB PO SCH (09:45)
[2021-05-17] MEDS: LORATADINE 10 MG TAB PO SCH (09:45)
[2021-05-17] MEDS: lisinopril 10 MG TAB PO SCH (09:45)
[2021-05-17] MEDS: levETIRAcetam 1,000 MG in 0.9 % SODIUM CHLORIDE 100 ML IV SCH (09:45)
[2021-05-17] MEDS: PRAZOSIN HCL 1 MG CAP PO SCH ×2 (09:46→21:07)
[2021-05-17] MEDS ORDERED: POTASSIUM CHLORIDE CRTAB 20 MEQ TABCR PO STA (10:01)
[2021-05-17] MEDS ORDERED: FUROSEMIDE 20 MG in SYRINGE 0 ML IV ONE (10:01)
[2021-05-17] MEDS ORDERED: FUROSEMIDE 40 MG/4 ML VIAL IV ONE (10:15)
--- NOTE | 2021-05-17 11:45 | Cardiology Progress Note ---
Date of Service May 17, 2021 Assessment & Plan (1) Anemia: (2) Presence of stent in LAD coronary artery: (3) Chest pain: (4) Prinzmetal angina: (5) Postoperative deep vein thrombosis: (6) PAD (peripheral artery disease): (7) H/O diastolic dysfunction: (8) Pacemaker: Plan: At this point I do not see any ischemic cause to her troponin elevation. She carries a history of coronary artery disease and microvascular dysfunction and her severe anemia likely prompted demand ischemia. Obviously, she should not be anticoagulated at this time. Continue low-dose daily aspirin but okay to hold Plavix for the time being. 2D echocardiogram shows normal LV systolic function without regional wall motion abnormality. No further ischemic work-up necessary at this time. Pacemaker lead does appear thickened with possible superimposed lesion: Differential diagnosis of thrombus versus vegetation. Obviously, cannot anticoagulate at this time given anemia Blood cultures drawn and pending. Admission and Anticipated Discharge Date Admission Date: May 16, 2021 Subjective Patient seen and examined, chart reviewed. Continues to deny cardiac complaints of chest pain, shortness of breath, palpitations, lightheadedness, dizziness or syncope. Telemetry reviewed: Normal sinus rhythm without arrhythmia. Review of Systems Review of Systems: All systems reviewed & are unremarkable except as noted in HPI & below Physical Exam Physical Exam: General: Awake, alert and oriented x 3. No acute distress. HEENT: Normocephalic, atraumatic. Pupils equal, round and reactive to light and accommodation. Extraocular muscles are intact. Anicteric sclera. Moist mucous membranes. Neck: No JVD. No bruit. Cardiovascular: Regular. Positive S-4. Normal S-1 and S-2. No S-3. No murmurs or rubs. Pulmonary: Coarse breath sounds diffusely with scattered rhonchi and wheezing along with fibrotic rales. Abdomen: Bowel sounds x 4, soft. No rebound, guarding or tenderness. No organomegaly. Extremities: No clubbing, cyanosis or edema. +2 pedal pulses bilaterally. Skin: Warm and dry. Results & Data ([facility]) Vital Signs (Past 12 Hours) Vital Signs Pulse Resp BP Pulse Ox 05/17/21 09:23 84 24 108/63 98 05/17/21 08:24 80 16 94/51 L 98 05/17/21 07:24 83 113/62 97
--- NOTE | 2021-05-17 14:26 | Hospitalist Progress Note ---
Date of Service May 17, 2021 Assessment & Plan (1) Anemia: Plan: ASSESSMENT AND PLAN: This is a 55-year-old female who presents with syncope and also complains of chest pain and found to have anemia, non-ST elevated myocardial infarction. 1. Symptomatic anemia - Hemoglobin of 5.4 No obvious bleeding at home. History of gastrointestinal bleed in the past. - s/p 4 units of PRBC - Hg improved from 5.4 to 10 - no signs of active GI bleed outpatient EGD/Colonoscopy per GI Protonix 40mg PO BID - check anemia monitoring and evaluation advisor 2. Non-ST elevated myocardial infarction likely secondary to Demand Ischemia - Troponin of 1.45 --> 1.3 EKG: no acute findings - Echo: no segmental left ventricular wall motion abnormalities - Director Client Services consulted continue ASA hold Plavix per Cardiology 3. History of coronary artery disease - Status post LAD stenting as well as vasospastic angina. - management per above - Continue her home medication of diltiazem, isosorbide mononitrate. 4. History of VT arrest due to coronary artery vasospasm versus acquired QT prolongation with azithromycin exposure, status post single chamber AICD. 5. History of peripheral artery disease with superficial femoral artery occlusion, left subclavian artery stenosis. 6. History of myotonic muscular dystrophy: - PT/OT 7. History of pulmonary embolism: Coumadin discontinued due to GI bleeding, in 2009. 8. History of left carotid endarterectomy in 2016. 9. Chronic obstructive pulmonary disease: Continue home inhalers. 10. History of chronic pain: Continue home pain medications.dilaudid prn 11. History of seizures: - on Morphine and Oxycodone 12. Diastolic congestive heart failure: - on Lasix and lisinopril and nitrate - BP low this afternoon from overdiuresis? hold Lasix given 1 L NSS bolus- improved 13. Hypertension: - BP low this afternoon, improving with fluid challenge - on diltiazem, isosorbide dinitrate, lisinopril, diuretics, prazosin monitor closely 14. Gastroesophageal reflux disease - now on Protonix 40mg IV BID 15. Deep venous thrombosis prophylaxis - Sequential compression devices for now. Admission and Anticipated Discharge Date Admission Date: May 16, 2021 Subjective ff up for symptomatic anemia, fall, etc seen sitting up in bed, not in distress reports back pain, right paraspinal area- worse with movement reports intermittent chest pain- typical of her "angina" no headache, dizziness, abdominal pain, nausea/vomiting no other symptoms Review of Systems Review of Systems: all noted and negative except for above Physical Exam Physical Exam: General- oriented x 3, not in distress, speaks in sentences with no effort or accessory muscle use Head- atraumatic Eyes- PERRL, EOMI, anicteric ENT- oropharynx clear Neck- supple, no JVD, no adenopathy, no thyromegaly; carotids +2/2, no bruits appreciated Lungs- clear to auscultation bilaterally, no rales/wheezes Heart- normal rate, regular rhythm; no murmur, no gallop, no rub appreciated Abdomen- normal bowel sounds, nondistended, soft, nontender, no masses or hepatosplenomegaly Extremities- no pretibial edema, no calf tenderness; peripheral pulses intact Back- (+) moderate tenderness on the right paraspinal border- no edema/erythema/hematoma Neuro- alert, oriented x 3; CN 2-12 grossly intact; motor 5/5 bilaterally;sensation 100% on all extremities; no other gross focal neurologic deficits Skin- warm & dry Results & Data Results & Data ([facility]) Vital Signs (Past 12 Hours) Vital Signs Temp Pulse Resp BP Pulse Ox 05/17/21 13:23 76 19 95/56 L 92 05/17/21 12:04 83 24 119/64 91 05/17/21 11:23 80 19 98/55 L 95 05/17/21 10:23 81 20 98/58 L 92 05/17/21 09:30 37 C 05/17/21 09:23 84 24 108/63 98 05/17/21 08:24 80 16 94/51 L 98 05/17/21 08:00 85 05/17/21 07:24 83 113/62 97 all noted and reviewed including below (1) Anemia Anemia type: other cause Other causes of anemia: other cause, not classified Qualified Code(s): D64.89 - Other specified anemias
[2021-05-17] MEDS: oxyCODONE HCL IR 5 MG TAB (IMMEDIATE RELEASE) PO PRN (14:28)
[2021-05-17] MEDS: tiZANidine HCL 4 MG TABLET PO PRN (14:29)
[2021-05-17] MEDS: PHENYTOIN SODIUM ER 100 MG CAP PO SCH ×2 (14:41→21:10)
[2021-05-17] MEDS ORDERED: SODIUM CHLORIDE 0.9% 1000ML 500 ML IV ONE ×2 (15:15→16:38)
[2021-05-17 15:50] LABS: Hematocrit (blood only) 32.3 % (37-47); Hemoglobin 10.4 g/dL (12.0-16.0)
[2021-05-17] MEDS ORDERED: levETIRAcetam 500 MG TAB PO SCH (21:00)
[2021-05-17] MEDS ORDERED: PANTOprazole 40 MG TAB PO SCH (21:00)
[2021-05-17] MEDS: ATORVASTATIN 40 MG TAB PO SCH (21:06)
[2021-05-17] MEDS: traZODone HCL 100 MG TAB PO SCH (21:08)
[2021-05-17] MEDS ORDERED: SODIUM CHLORIDE 0.9% 500 ML IV SCH (23:00)
[2021-05-18] MEDS ORDERED: LIDOCAINE 5% 1 PATCH TD SCH (01:30)
[2021-05-18] MEDS ORDERED: ASPIRIN 81 MG CHEW ONE (03:06)
[2021-05-18] MEDS ORDERED: ACETAMINOPHEN 1000 MG/100 ML IV IV ONE (03:06)
[2021-05-18] MEDS ORDERED: ASPIRIN 81 MG CHEW PO STA (03:18)
[2021-05-18] MEDS ORDERED: ACETAMINOPHEN 1000 MG/100 ML IV IV STA (03:18)
[2021-05-18] MEDS: SODIUM CHLORIDE 0.9% 10ML FLUSH IV SCH (06:54)
[2021-05-18 08:18] LABS: Basophils # (auto) 0.02 K/uL (0-0.2); Basophils % (auto) 0.3 %; Eosinophils # (auto) 0.07 K/uL (0-0.5); Eosinophils % (auto) 0.9 %; Hematocrit (blood only) 35.1 % (37-47); Hemoglobin 11.4 g/dL (12.0-16.0); Immature Granulocytes # (auto) 0.01 K/uL (0.00-0.02); Immature Granulocytes % (auto) 0.1 %; Lymphocytes # (auto) 0.97 K/uL (1.2-3.4); Lymphocytes % (auto) 12.3 %; Mean Corpuscular Hemoglobin 26.6 pg (25-34); Mean Corpuscular Hgb Conc 32.5 g/dL (32-36); Mean Corpuscular Volume 81.8 fL (80-100); Mean Platelet Volume 10.8 fL (7.4-10.4); Monocytes # (auto) 0.85 K/uL (0.11-0.59); Monocytes % (auto) 10.8 %; Neutrophils # (auto) 5.94 K/uL (1.4-6.5); Neutrophils % (auto) 75.6 %; Platelet Count 190 K/uL (130-400); RDW Coefficient of Variation 16.4 % (11.5-14.5); RDW Standard Deviation 48.4 fL (36.4-46.3); Red Blood Count 4.29 M/uL (4.2-5.4); White Blood Count 7.86 K/uL (4.8-10.8)
[2021-05-18] MEDS ORDERED: FERROUS SULFATE 325 MG TAB PO SCH (08:45)
[2021-05-18 09:44] LABS: BUN Creatinine Ratio 23.7 (10-20); Calcium 8.4 mg/dl (8.5-10.1); Creatinine Clr Calc Pharmacy 73.7 ml/min; Est GFR (African American) 118.1 ml/min; Est GFR (Non-African American) 101.9 ml/min; Potassium 3.8 mmol/L (3.5-5.1)
--- NOTE | 2021-05-19 17:12 | Hospitalist Progress Note ---
Date of Service May 19, 2021 Assessment & Plan (1) Anemia: Plan: ASSESSMENT AND PLAN: This is a 55-year-old female who presents with syncope and also complains of chest pain and found to have anemia, non-ST elevated myocardial infarction. 1. Symptomatic anemia - Hemoglobin of 5.4 No obvious bleeding at home. History of gastrointestinal bleed in the past. - s/p 4 units of PRBC - Hg improved from 5.4 to 11.4 - no signs of active GI bleed outpatient EGD/Colonoscopy per GI Protonix 40mg PO BID -Anemia panel Iron 49 Vitamin B12 and folate normal Start ferrous sulfate twice a day Patient declining to remain admitted to the hospital despite extensive explanation including consequences of leaving his medical advice including deterioration of medical condition, and organ damage), even Patient verbalized understanding and agreement Advised to return to the ER immediately if with worsening of symptoms Prescription for Protonix, iron supplement given Advised to discontinue Plavix as per cardiology service recommendations, continue baby aspirin with food We will set up PCP appointment this week Will need outpatient GI follow-up for EGD/colonoscopy Further evaluation and management, monitoring of anemia as per PCP 2. Non-ST elevated myocardial infarction likely secondary to Demand Ischemia - Troponin of 1.45 --> 1.3 EKG: no acute findings - Echo: no segmental left ventricular wall motion abnormalities - [employer] consulted continue ASA May DC Plavix per Cardiology as cardiac stent was placed many years back 3. History of coronary artery disease - Status post LAD stenting as well as vasospastic angina. - management per above - Continue her home medication of diltiazem, isosorbide mononitrate. 4. History of VT arrest due to coronary artery vasospasm versus acquired QT prolongation with azithromycin exposure, status post single chamber AICD. 5. History of peripheral artery disease with superficial femoral artery occlusion, left subclavian artery stenosis. 6. History of myotonic muscular dystrophy: - PT/OT 7. History of pulmonary embolism: Coumadin discontinued due to GI bleeding, in 2009. 8. History of left carotid endarterectomy in 2016. 9. Chronic obstructive pulmonary disease: Continue home inhalers. 10. History of chronic pain: Continue home pain medications.dilaudid prn 11. History of seizures: - on Morphine and Oxycodone 12. Diastolic congestive heart failure: - on Lasix and lisinopril and nitrate 13. Hypertension: On diltiazem, isosorbide dinitrate, lisinopril, diuretics, prazosin monitor closely 14. Gastroesophageal reflux disease - now on Protonix 40mg BID EGD/colonoscopy as an outpatient 15. Deep venous thrombosis prophylaxis - Sequential compression devices for now. Admission and Anticipated Discharge Date Admission Date: May 16, 2021 Subjective Delayed entry Date of service May 18, 2021 Notified by RN that patient is adamant on leaving the hospital Seen with EMILY Fleming at the bedside throughout whole encounter Seen sitting up in bed, not in distress, very upset, reporting that she did not get any pain medication last night, and was not able to sleep or rest properly States other than that she feels much better overall Denies chest pain, palpitations, dizziness, abdominal pain, melena or he matochezia States that she is ambulating with no problems Denies any other symptoms Review of Systems Review of Systems: all noted and negative except for above Physical Exam Physical Exam: General- oriented x 3, not in distress, speaks in sentences with no effort or accessory muscle use Eyes- anicteric Neck- no JVD Lungs- clear breath sounds bilaterally, no crackles, no wheezing appreciated Heart- normal rate, regular rhythm; no murmurs Abdomen- normal bowel sounds, nondistended, soft, no tenderness in all quadrants Extremities- no pretibial edema, no calf tenderness Neuro- alert, oriented x 3; no gross focal neurologic deficits Skin- warm & dry Results & Data Results & Data ([facility]) Vital Signs (Past 12 Hours) all noted and reviewed including below (1) Anemia Anemia type: other cause Other causes of anemia: other cause, not classified Qualified Code(s): D64.89 - Other specified anemias
--- NOTE | 2021-05-19 17:16 | Discharge Summary ---
Date of Service May 19, 2021 Admission HPI Per Admitting Provider CHIEF COMPLAINT: Syncope. HISTORY OF PRESENT ILLNESS: This is a 55-year-old female with past medical history significant for hyperlipidemia, COPD, ongoing tobacco abuse, still smokes 2-3 cigarettes daily, history of diastolic CHF, bilateral carotid artery stenosis, hypertension, history of CAD, Prinzmetal angina, GERD, vitamin D deficiency, myotonic muscular dystrophy, sacroiliitis, posttraumatic stress diso rder, chronic pain syndrome, polyneuropathy and collagen vascular disease, microcytic anemia, status post ICD, nondependent cocaine abuse in remission, nondependent cannabis abuse , CAD status post stent, anxiety, and depression. The patient lives with her live study manager. Sometimes uses a walker, sometimes uses a cane. Lately she is getting more short of breath with exertion. She was walking, ambulating in the room when she suddenly felt dizzy and suddenly collapsed. Her live study manager helped her and she does not know how long she was passed out, but not a very long time, and no biting of the tongue and no incontinence and she was brought into the ER and her hemoglobin was 5.4, potassium 5.4, and troponin is 1.45. Currently, saturating okay on 5 liters OxyMask. She was 89% on room air. Currently, resting comfortably. Complains of back pain, chronic pains, neck pain, requesting pain medication. She is on OxyContin and oxycodone p.r.n. at home. She also complains of some chest pain below her pacemaker region, moderate in severity, short of breath with exertion. Has cough. No fevers. Denies any headache. No blurred visions, no earache, no runny nose, no sore throat. Appetite is not that great. No difficulty swallowing. No nausea, no abdominal pain. Denies any blood in the stools or black stools. No hematuria. She says had significant significant GI bleeding in 2009 causing cardiac arrest. Admission Exam (Per Admitting) Constitutional GENERAL: The patient is thin and frail, not in acute distress. VITAL SIGNS: Temperature 37.3, pulse 87, respiratory rate 17, blood pressure 103/70, oxygen 93% on 5 liters. HEENT: Pupils equal, round, and reactive to light. Oral mucosa moist. NECK: No JVD, no neck masses. CARDIOVASCULAR: S1 and S2 heard. Regular rate and rhythm. No murmur, no gallop. RESPIRATORY SYSTEM: Normal AP diameter. Mild occasional wheezing, no crackles. No accessory muscle use. ABDOMEN: Soft, bowel sounds present, nontender, no distention. CENTRAL NERVOUS SYSTEM: Cranial nerves II-XII grossly intact, nonfocal. EXTREMITIES: No edema, no erythema. Discharge Data Consultations 05/16/21 01:58 ED Decision to Admit Stat 05/16/21 08:17 Consult Cardiology Routine Consult Gastroenterology Routine Procedures Performed Operation Date: 05/16/21 17:15 <No data on this case meets the specified criteria> CT head/brain wo con CLINICAL HISTORY: 55 years-old Female with syncope. Acute syncope TECHNIQUE: Multiple axial CT images of the head were obtained without contrast. A dose lowering technique was utilized adhering to the principles of ALARA. CT DOSE: 537.48 mGy.cm COMPARISON: Head CT 05/16/2016 FINDINGS: No acute intracranial hemorrhage, midline shift, intracranial mass, hydrocephalus, territorial ischemia or abnormal extra-axial collection. Mild white matter hypodensities may be on a basis of chronic microvascular ischemic disease. Cerebral vascular calcifications. The calvarium is intact. The paranasal sinuses, mastoid air cells, and middle ear cavities are clear. IMPRESSION: No acute intracranial abnormality. ACT 112: Negative or not required by law. XR chest 1V portable CLINICAL HISTORY: syncope COMPARISON STUDY: January 29, 2015 FINDINGS: No pneumothorax. No pleural effusion. Lung volumes are increased and associated with flattening of right and left hemidiaphragms. Diffuse reticular opacities are seen within bilateral mid to lower lungs, but no definitely seen on prior and might represent pulmonary edema or scattered atelectasis. Questionable linear density seen projecting over right apex, could represent superimposition of soft tissue versus other etiology. Cardiomediastinal silhouette is within upper limits of normal. Aorta is calcified. Pulmonary vasculature is indistinct.. Stable position of single lead left-sided AICD with battery pack partially obscuring left lung parenchyma. Osseous structures: Wall degenerative changes of the spine. IMPRESSION: 1. COPD pattern. Possible pulmonary edema. 2. Atherosclerosis. 3. Cardiomediastinal silhouette is within upper limits of normal. Stable position of left-sided AICD. 4. Questionable linear density projecting to the right apex, could be due to superimposition of structures versus other etiology. Short-term follow-up with PA and lateral chest radiograph on nonemergency basis is suggested. Hospital Course (1) Anemia: ASSESSMENT AND PLAN: This is a 55-year-old female who presents with syncope and also complains of chest pain and found to have anemia, non-ST elevated myocardial infarction. 1. Symptomatic anemia - Hemoglobin of 5.4 No obvious bleeding at home. History of gastrointestinal bleed in the past. - s/p 4 units of PRBC - Hg improved from 5.4 to 11.4 - no signs of active GI bleed outpatient EGD/Colonoscopy per GI Protonix 40mg PO BID -Anemia panel Iron 49 Vitamin B12 and folate normal Start ferrous sulfate twice a day Patient declining to remain admitted to the hospital despite extensive explanation including consequences of leaving his medical advice including deterioration of medical condition, and organ damage), even Patient verbalized understanding and agreement Advised to return to the ER immediately if with worsening of symptoms Prescription for Protonix, iron supplement given Advised to discontinue Plavix as per cardiology service recommendations, continue baby aspirin with food We will set up PCP appointment this week Will need outpatient GI follow-up for EGD/colonoscopy Further evaluation and management, monitoring of anemia as per PCP 2. Non-ST elevated myocardial infarction likely secondary to Demand Ischemia - Troponin of 1.45 --> 1.3 EKG: no acute findings - Echo: no segmental left ventricular wall motion abnormalities - [employer] consulted continue ASA May DC Plavix per Cardiology as cardiac stent was placed many years back Abnormal chest x-ray findings Questionable linear density projecting to the right apex, could be due to superimposition of structures versus other etiology. Short-term follow-up with PA and lateral chest radiograph on nonemergency basis is suggested. Please refer to full report in the Ordered Studies section above Further work up, management, and ff up as outpatient 3. History of coronary artery disease - Status post LAD stenting as well as vasospastic angina. - management per above - Continue her home medication of diltiazem, isosorbide mononitrate. 4. History of VT arrest due to coronary artery vasospasm versus acquired QT prolongation with azithromycin exposure, status post single chamber AICD. 5. History of peripheral artery disease with superficial femoral artery occlusion, left subclavian artery stenosis. 6. History of myotonic muscular dystrophy: - PT/OT 7. History of pulmonary embolism: Coumadin discontinued due to GI bleeding, in 2009. 8. History of left carotid endarterectomy in 2016. 9. Chronic obstructive pulmonary disease: Continue home inhalers. 10. History of chronic pain: Continue home pain medications.dilaudid prn 11. History of seizures: - on Morphine and Oxycodone 12. Diastolic congestive heart failure: - on Lasix and lisinopril and nitrate 13. Hypertension: On diltiazem, isosorbide dinitrate, lisinopril, diuretics, prazosin monitor closely 14. Gastroesophageal reflux disease - now on Protonix 40mg BID EGD/colonoscopy as an outpatient 15. Deep venous thrombosis prophylaxis - Sequential compression devices for now.
--- NOTE | 2021-05-19 19:52 | Electrocardiogram Report ---
Test Reason : Blood Pressure : / mmHG Vent. Rate : 084 BPM Atrial Rate : 084 BPM P-R Int : 184 ms QRS Dur : 100 ms QT Int : 418 ms P-R-T Axes : 051 013 108 degrees QTc Int : 493 ms Poor data quality, interpretation may be adversely affected Normal sinus rhythm Nonspecific T wave abnormality Abnormal ECG When compared with ECG of 16-MAY-2021 12:42, No significant change Confirmed by Jhonny Branham ([id number]) on 05/19/2021 7:51:58 PM Referred By: REFERRED SELF Confirmed By:Jhonny Branham
--- NOTE | 2021-05-19 20:12 | Electrocardiogram Report ---
Test Reason : Blood Pressure : / mmHG Vent. Rate : 092 BPM Atrial Rate : 092 BPM P-R Int : 166 ms QRS Dur : 102 ms QT Int : 350 ms P-R-T Axes : 046 020 090 degrees QTc Int : 432 ms Normal sinus rhythm Possible Left atrial enlargement Nonspecific T wave abnormality Abnormal ECG When compared with ECG of 17-MAY-2021 19:40, (unconfirmed) T wave inversion no longer evident in Anterior leads QT has shortened Confirmed by Jhonny Branham ([id number]) on 05/19/2021 8:12:15 PM Referred By: REFERRED SELF Confirmed By:Jhonny Branham
== END 2021-05-18 09:46 | disposition left against medical advice (07) | DRG 811 ==
LOC: ED 22:12 → SUATTDRO 05-16 05:36 → 1E 05-16 05:36

== ENCOUNTER 2021-06-11 23:19 | Inpatient (IN) ==
[2021-06-11] MEDS ORDERED: fentaNYL citrate 100 MCG/2 ML VIAL IV STA (23:23)
[2021-06-11] MEDS ORDERED: PANTOprazole 40 MG in SYRINGE 0 ML IV ONE (23:23)
[2021-06-11] MEDS ORDERED: ONDANSETRON INJ 2 MG/ML 2 ML VIAL IV STA (23:23)
[2021-06-11] MEDS ORDERED: ACETAMINOPHEN 1,000 MG/100 ML VIAL IV STA (23:31)
[2021-06-11] MEDS ORDERED: LORazepam 0.25 MG/0.5 ML VIAL IV STA (23:31)
[2021-06-11] MEDS: PANTOprazole 40 MG in DEXTROSE 5% 100 ML IV SCH (23:43)
[2021-06-11] MEDS ORDERED: SODIUM CHLORIDE 0.9% 1000ML 1,000 ML IV SCH (23:45)
[2021-06-11] MEDS ORDERED: ETOMIDATE 2 MG/ML 20 ML VIAL IV ONE (23:51)
[2021-06-11] MEDS ORDERED: RAPID SEQUENCE INDUCTION BAG ONE (23:53)
[2021-06-11] MEDS ORDERED: PIPERACILL/TAZOBAC CONSULT ACTIVE PRN (23:58)
[2021-06-11] MEDS ORDERED: PIPERACILLIN/TAZOBACTAM 4.5 GM/120 ML BAG IV ONE (23:58)
[2021-06-11 23:59] LABS: HCO3 VBG 12 mmol/L; PCO2 VBG 47 mmHg (38-50); PO2 VBG 24 mmHg; pH VBG 7.02 (7.36-7.41)
[2021-06-12 00:01] LABS: INR 1.1 (0.9-1.1); Partial Thromboplastin Ratio 1.1; Partial Thromboplastin Time 28.2 Seconds (21.0-31.0); Prothrombin Time 11.5 Seconds (9.0-12.0)
[2021-06-12 00:04] LABS: Alanine Aminotransferase 48 U/L (12-78); Albumin Level 2.8 gm/dl (3.4-5.0); Aspartate Aminotransferase 71 U/L (15-37); BUN Creatinine Ratio 22.9 (10-20); Blood Urea Nitrogen 22 mg/dl (7-18); Calcium 8.8 mg/dl (8.5-10.1); Carbon Dioxide 12 mmol/L (21-32); Chloride 103 mmol/L (98-107); Est GFR (African American) 76.6 ml/min; Est GFR (Non-African American) 66.1 ml/min; Glucose 168 mg/dl (70-99); Magnesium 2.5 mg/dl (1.8-2.4); Potassium 4.8 mmol/L (3.5-5.1); Sodium 137 mmol/L (136-145)
[2021-06-12] MEDS ORDERED: PROPOFOL BOLUS FROM BAG IV PRN (00:04)
[2021-06-12] MEDS ORDERED: FUROSEMIDE 40 MG/4 ML VIAL IV STA (00:04)
[2021-06-12] MEDS ORDERED: STAT IV Infusion **Titration per Protocol STA (00:04)
[2021-06-12] MEDS: propofoL 1,000 MG/100 ML VIAL IV SCH ×3 (00:09→14:43)
[2021-06-12 00:11] LABS: Hematocrit (blood only) 31.5 % (37-47); Mean Corpuscular Hemoglobin 26.5 pg (25-34); Mean Corpuscular Hgb Conc 28.6 g/dL (32-36); Mean Corpuscular Volume 92.9 fL (80-100); Mean Platelet Volume 9.8 fL (7.4-10.4); Nucleated RBC # (auto) 0.04 K/uL (0-0); Nucleated RBC % (auto) 0.3 %; Platelet Count 311 K/uL (130-400); RDW Coefficient of Variation 21.2 % (11.5-14.5); RDW Standard Deviation 69.1 fL (36.4-46.3); Red Blood Count 3.39 M/uL (4.2-5.4); White Blood Count 17.64 K/uL (4.8-10.8)
--- NOTE | 2021-06-12 00:11 | Emergency Department Note ---
History of Present Illness General Chief complaint: Shortness of Breath/Dyspnea Stated complaint: SOB Time Seen by Provider: 06/11/21 23:21 Source: EMS Mode of arrival: EMS Limitations: altered mental status History of Present Illness Provider complaint: chest pain, sob Maximum Pain Intensity: 10 Treatments prior to arrival: none This is a 55-year-old female brought in by EMS with complaints of chest pain and shortness of breath. EMS states on their arrival patient could answer some questions appropriately however at other times seems confused, complained of gela st pain and shortness of breath. They state patient kept removing her oxygen. They state they were unable to obtain a pulse ox reading. They state other vitals are well-appearing. They deny any vomiting. They state family was present. They state patient recently admitted with GI bleed. On arrival here patient agitated, uncooperative, continued to remove her oxygen mask, oxygen via nasal cannula and pulse oximeter. Difficulty redirecting the patient although she would intermittently answer a question seemingly appropriately. She stated she had chest pain, abdominal pain, felt short of breath, and had diarrhea earlier. Pt seen during a time of high acuity and national emergency pandemic while wearing PPE. Home Medications Medication Instructions Recorded Confirmed Type albuterol sulfate 90 mcg/actuation 2 puff INHALATION Q4 PRN 05/15/21 06/12/21 History aerosol inhaler aspirin 81 mg tablet,delayed 81 mg PO DAILY 05/15/21 06/12/21 History release atorvastatin 80 mg tablet 80 mg PO HS 05/15/21 06/12/21 History diltiazem HCl 240 mg capsule,24 480 mg PO DAILY 05/15/21 06/12/21 History hr,extended release epinephrine 0.3 mg/0.3 mL 0.3 mg IM UD PRN 05/15/21 06/12/21 History injection, auto-injector (EpiPen) fluticasone propionate 50 2 spray INTRANASAL DAILY 05/15/21 06/12/21 History mcg/actuation nasal spray,suspension furosemide 20 mg tablet 20 mg PO DAILY 05/15/21 06/12/21 History gabapentin 600 mg tablet 600 mg PO TID 05/15/21 06/12/21 History isosorbide dinitrate 5 mg tablet 5 mg PO DIRECTED PRN 05/15/21 06/12/21 History isosorbide mononitrate 120 mg 120 mg PO AMPM 05/15/21 06/12/21 History tablet,extended release 24 hr levetiracetam 1,000 mg tablet 1,000 mg PO BID 05/15/21 06/12/21 History lisinopril 5 mg tablet 10 mg PO DAILY 05/15/21 06/12/21 History loratadine 10 mg tablet 10 mg PO DAILY 05/15/21 06/12/21 History morphine 30 mg tablet,extended 30 mg PO BID 05/15/21 06/12/21 History release oxycodone 5 mg tablet 5 mg PO Q6 PRN 05/15/21 06/12/21 History phenytoin sodium extended 100 mg 100 mg PO TID 05/15/21 06/12/21 History capsule potassium chloride 20 mEq 40 meq PO DAILY 05/15/21 06/12/21 History tablet,extended release(part/cryst) prazosin 1 mg capsule 1 mg PO BID 05/15/21 06/12/21 History protein 500 mg chewable tablet 500 mg PO DAILY 05/15/21 06/12/21 History tizanidine 4 mg tablet 4 mg PO Q8 PRN 05/15/21 06/12/21 History trazodone 50 mg tablet 100 mg PO HS 05/15/21 06/12/21 History ferrous sulfate 325 mg (65 mg 325 mg PO BIDM #60 tab 05/18/21 06/12/21 Rx iron) tablet,delayed release pantoprazole 40 mg tablet,delayed 40 mg PO BID #60 tab 05/18/21 06/12/21 Rx release acetaminophen 325 mg tablet 325 mg PO Q6H PRN 06/12/21 06/12/21 History (Tylenol) aspirin 325 mg tablet,delayed 650 mg PO BID PRN 06/12/21 06/12/21 History release gabapentin 300 mg capsule 300 mg PO TID 06/12/21 06/12/21 History guaifenesin 600 mg tablet, 600 mg PO Q12H PRN 06/12/21 06/12/21 History extended release 12 hr ondansetron HCl 4 mg tablet 4 mg PO Q8H PRN 06/12/21 06/12/21 History (Zofran) primidone 50 mg tablet 50 mg PO TID 06/12/21 06/12/21 History Allergies Allergy/AdvReac Type Severity Reaction Status Date / Time bee venom protein (honey bee) Allergy Severe Anaphylaxis Verified 06/12/21 00:03 -HIVES latex Allergy Intermediate HIVES, Verified 06/12/21 00:03 BLISTERS scopolamine Allergy Unknown Unknown Verified 06/12/21 00:03 azithromycin [From Zithromax] AdvReac Severe STOMACH Verified 06/12/21 00:03 ULCERS, BLEEDING, ARRYTHMIAS dexbrompheniramine AdvReac Severe CARDIAC Verified 06/12/21 00:03 SPASMS--ALL ANTIHISTAMINES pseudoephedrine AdvReac Severe CARDIAC Verified 06/12/21 00:03 SPASMS--ALL ANTIHISTAMINES levofloxacin AdvReac Intermediate QTC Verified 06/12/21 00:03 PROLONGATION H/O VF ARREST meperidine AdvReac Intermediate NAUSEA, Verified 06/12/21 00:03 VOMITING methadone AdvReac Intermediate NAUSEA, Verified 06/12/21 00:03 VOMITING, RASH diphenhydramine AdvReac Mild "ARTERITAL Verified 06/12/21 00:03 SPASMS" FLU VIRUS VACCINE Allergy Severe EDEMA Uncoded 06/12/21 00:03 AIRWAY COLD AdvReac Unknown VASCULAR Uncoded 06/12/21 00:03 COLLAPSE SYNDROME Past Med/Surg History Social History Smoking Status: Current every day smoker Tobacco Type: Cigarettes Second Hand Exposure: No; Do You Dip or Chew Tobacco: No; Tobacco Cessation Education Requested by Patient: No Hx Alcohol Use: No Hx Substance Use: Yes Last Used Substance: Unknown Preferred Language: Vietnamese Communication Ability: Unable Communication Ability Comment: Intubated Manager Service Desk Required: No Beliefs That Will Affect Care: None marital status: Current Living Situation: Family Other Information That Helps Us Care for You: No Feels Safe at Home: Yes Safety Concerns: Feels Safe At This Time Assistive Devices: Walker and Wheelchair Review of Systems See HPI for pertinent positives & negatives. Unobtainable due to cognitive status Physical Exam Vital Signs Vital Signs - 24 hr 06/11/21 23:26 06/11/21 23:30 06/11/21 23:45 Pulse Rate 95 H 96 H 93 H Pulse Rate [Right Apical] Pulse Rate from SpO2 Sensor 95 H 96 H Respiratory Rate Respiratory Effort / Characteristics Respiratory Pattern Blood Pressure 144/108 H Blood Pressure Mean 120 Pulse Oximetry 85 L 89 L Oxygen Delivery Method Non-rebreather Oxygen Flow Rate 15 Fraction of Inspired Oxygen Sepsis New/Unexplained Change in Mental Status Sepsis Action Taken by Nursing End-Tidal CO2 06/11/21 23:50 06/11/21 23:51 06/12/21 00:00 Pulse Rate 93 H 88 Pulse Rate [Right Apical] Pulse Rate from SpO2 Sensor 89 Respiratory Rate Respiratory Effort / Characteristics Respiratory Pattern Blood Pressure Blood Pressure Mean Pulse Oximetry 83 L Oxygen Delivery Method Mechanical Vent Oxygen Flow Rate Fraction of Inspired Oxygen Sepsis New/Unexplained Change in Mental Status N/A Sepsis Action Taken by Nursing No Action Required End-Tidal CO2 06/12/21 00:10 06/12/21 00:20 06/12/21 00:28 Pulse Rate 91 H 91 H 90 Pulse Rate [Right Apical] 90 Pulse Rate from SpO2 Sensor 91 H Respiratory Rate 26 H 26 H Respiratory Effort / Characteristics Spontaneous Moaning Respiratory Pattern Blood Pressure Blood Pressure Mean Pulse Oximetry 91 98 Oxygen Delivery Method High Flow Nasal Cannula Oxygen Flow Rate 40 Fraction of Inspired Oxygen 100 90 Sepsis New/Unexplained Change in Mental Status Sepsis Action Taken by Nursing End-Tidal CO2 32 38 36 06/12/21 00:30 06/12/21 00:37 06/12/21 00:40 Pulse Rate 90 91 H Pulse Rate [Right Apical] Pulse Rate from SpO2 Sensor 90 90 Respiratory Rate Respiratory Effort / Characteristics Spontaneous Accessory Muscle Use Labored Moaning Respiratory Pattern Tachypnea Blood Pressure Blood Pressure Mean Pulse Oximetry 100 98 Oxygen Delivery Method Mechanical Vent Mechanical Vent Oxygen Flow Rate 100 100 Fraction of Inspired Oxygen Sepsis New/Unexplained Change in Mental Status Sepsis Action Taken by Nursing End-Tidal CO2 35 35 06/12/21 00:44 06/12/21 00:46 06/12/21 00:50 Pulse Rate 92 H 92 H Pulse Rate [Right Apical] Pulse Rate from SpO2 Sensor 92 H Respiratory Rate 26 H Respiratory Effort / Characteristics Respiratory Pattern Blood Pressure 133/77 Blood Pressure Mean 95 Pulse Oximetry 100 96 94 Oxygen Delivery Method Mechanical Vent Mechanical Vent Oxygen Flow Rate Fraction of Inspired Oxygen Sepsis New/Unexplained Change in Mental Status Sepsis Action Taken by Nursing End-Tidal CO2 35 06/12/21 01:00 06/12/21 01:04 06/12/21 01:10 Pulse Rate 93 H 92 H Pulse Rate [Right Apical] Pulse Rate from SpO2 Sensor 93 H 93 H Respiratory Rate Respiratory Effort / Characteristics Mechanically Ventilated Respiratory Pattern Blood Pressure 129/75 132/74 Blood Pressure Mean 93 93 Pulse Oximetry 92 93 Oxygen Delivery Method Mechanical Vent Oxygen Flow Rate Fraction of Inspired Oxygen Sepsis New/Unexplained Change in Mental Status Sepsis Action Taken by Nursing End-Tidal CO2 34 32 06/12/21 01:11 06/12/21 03:50 Pulse Rate 84 Pulse Rate [Right Apical] Pulse Rate from SpO2 Sensor Respiratory Rate 29 H 30 H Respiratory Effort / Characteristics Respiratory Pattern Blood Pressure Blood Pressure Mean Pulse Oximetry 93 Oxygen Delivery Method Oxygen Flow Rate Fraction of Inspired Oxygen 80 90 Sepsis New/Unexplained Change in Mental Status Sepsis Action Taken by Nursing End-Tidal CO2 GENERAL: alert agitated, cachectic appearing, moderate distress, pale appearing EYE EXAM: normal conjunctiva, PERRL and EOM's grossly intact OROPHARYNX: no exudate, no erythema, lips, buccal mucosa, and tongue normal and mucous membranes are moist, poor dentition NECK: supple, no nuchal rigidity, no adenopathy, non-tender, FROM LUNGS: Clear to auscultation. Normal chest wall mechanics, decreased breath sounds bilaterally, tachypnea, increased work of breathing HEART: no murmurs, S1 normal and S2 normal, pacemaker noted left anterior superior chest wall ABDOMEN: abdomen soft, non-tender, normo-active bowel sounds, no masses, no rebound or guarding. BACK: Back is symmetrical on inspection and there is no deformity, no midline tenderness, no CVA tenderness. SKIN: no rashes and no bruising, pallor, no petechiae UPPER EXTREMITIES: upper extremities are grossly normal. FROM, nml pulses b/l. No evidence of trauma or deformity. LOWER EXTREMITIES: No pitting edema. FROM, nml pulses b/l. No evidence of trauma or deformity. NEURO EXAM: Patient agitated, new her name and birthday, could not describe recent events, knew her 's name, cranial nerves II-XII grossly intact, normal speech, no gross weakness of arms, no gross weakness of legs. Gross sensation intact. Procedures Intubation Time out performed: No sedative: Etomidate Mg Given: 15 paralytic: Rocuronium Mg Given: 70 Laryngoscope: other (Glidescope) ET Tube Size: 7.5 ET Tube Uncuffed: No Tube Secured Depth (cm): 25 Tube Secured Location: lips Tube Placement Confirmation: visualized tube passing through cords, equal breath sounds bilaterally, no breath sounds over epigastrium and confirmation by capnometry Patient Tolerated Procedure: well Intubation Complications: none Course Course 2331: Remained at bedside as nursing staff continue to try and redirect the patient and calm her so she would cooperate to leave pulse oximeter in place and nonrebreather on her face. Patient continued to state "help me" and "my chest hurts". Patient continued to be agitated. Fentanyl added for pain. Staff trying to obtain second IV. 2342: Additional orders being placed, patient still agitated. Minimal improvement after fentanyl. I added IV Tylenol and Ativan. I did contact RT who came to bedside and we will attempt to try and place patient on high flow nasal cannula. Patient continued to remove oxygen and oxygen saturations would immediately drop. Given patient's complaints of chest pain in her admission of accompanying shortness of breath as well as her prior history of COPD and CHF, I am concerned that these 2 may be related to the same underlying etiology. 2350: With assistance of case management, patient's brought to the B pod [place]. I did discuss with him patient's current condition. He states patient seemed in her usual state of health when he left for work at 8 AM. Upon his return this evening, patient complaining of worsening chest pain, abdominal pain, was seated in a chair and not moving, and seemed to be strictly complaining of pain. She could not verbalize to him any additional symptoms. He states he tried to get her something to drink but she refused. They did not try any other pain management at the time. He was concerned that she seemed slightly altered from all of this and was in significant distress so he called 911. 0022: Patient's was brought to bedside as patient continued to be agitated and unable to be redirected. He was unable to assist on this also. We again discussed need for airway management and supporting the patient's respiratory efforts and improving her oxygenation. Due to concern for history and patient's inability to be redirected or cooperative, I did discuss with him intubation and sedation. Patient verbalized understanding and in agreement. RT at bedside, patient given etomidate and rocuronium and intubated without difficulty. Please see procedure note for additional details. Postprocedural chest x-ray ordered, and I asked RT to obtain an ABG. 0032: As labs begin to result, patient noted to have a troponin of 6. Unfortunately due to appearance of acute pulmonary edema noted on chest x-rays, I did contact interventional cardiology, Dr. Hinojosa. Patient's EKG did not show STEMI, however did have new T wave inversion in V5/6. We discussed patient's presentation tonight as well as recent admission, current labs and EKG, prior history, and echo from 1 month ago. We did briefly perform a [id number] bedside echo. Patient's ejection fraction now appears markedly diminished compared to prior. Dr. Hinojosa would like to review the patient's medical record, I will update the and then bring him to bedside. Administered Medications Pantoprazole Sodium 40 mg/ (Dextrose) 100 mls @ 20 mls/hr IV Q5H DENISSE Stop: 07/11/21 23:29 Last Admin: 06/12/21 05:05 Dose: 8 mg/hr, 20 mls/hr Documented by: [id number] Infusion: 06/12/21 04:43 Dose: 8 mg/hr, 20 mls/hr Documented by: [id number] Admin: 06/11/21 23:43 Dose: 8 mg/hr, 20 mls/hr Documented by: [id number] Propofol (Diprivan) 1,000 mg in 100 mls @ 13.71 mls/hr IV .[id number] DENISSE; Protocol Stop: 06/15/21 00:14 Last Titration: 06/12/21 05:06 Dose: 50 mcg/kg/min, 13.7 mls/hr Documented by: [id number] Admin: 06/12/21 00:09 Dose: 20 mcg/kg/min, 5.5 mls/hr Documented by: [id number] Cosigned by: [id number] Sodium Bicarbonate 150 meq/ (Dextrose) 1,150 mls @ 75 mls/hr IV .[id number] DENISSE Stop: 07/12/21 01:14 Last Admin: 06/12/21 05:05 Dose: 75 mls/hr Documented by: [id number] Discontinued Medications Albuterol (Albut/Ipratrop 3mg/0.5mg Neb 3 Ml Vial) Confirm Administered Dose 3 ml .ROUTE .STK-MED ONE Stop: 06/12/21 00:32 Last Admin: 06/12/21 05:04 Dose: Not Given Documented by: [id number] Etomidate (Etomidate 2 Mg/Ml 20 Ml Vial) Confirm Administered Dose 40 mg IV .STK-MED ONE Stop: 06/11/21 23:52 Last Admin: 06/12/21 00:16 Dose: Not Given Documented by: [id number] Fentanyl Citrate (Fentanyl Citrate 100 Mcg/2 Ml Vial) 50 mcg IV NOW STA Stop: 06/11/21 23:24 Last Admin: 06/11/21 23:29 Dose: 50 mcg Documented by: [id number] Fentanyl Citrate (Fentanyl Citrate 100 Mcg/2 Ml Vial) Confirm Administered Dose 100 mcg .ROUTE .STK-MED ONE Stop: 06/12/21 01:10 Last Admin: 06/12/21 02:46 Dose: 50 mcg Documented by: [id number] Furosemide (Furosemide 40 Mg/4 Ml Vial) 40 mg IV NOW STA Stop: 06/12/21 00:05 Last Admin: 06/12/21 00:26 Dose: 40 mg Documented by: [id number] Heparin Sodium (Porcine) (Heparin (Porcine) 1000 Unit/Ml 10 Ml (Clinical Lab Specialist Use Only)) Confirm Administered Dose 10,000 units .ROUTE .STK-MED ONE Stop: 06/12/21 01:10 Last Admin: 06/12/21 02:46 Dose: 8,000 units Documented by: [id number] Pantoprazole Sodium 40 mg/ (Syringe) 10 mls @ 5 mls/min IV NOW ONE Stop: 06/11/21 23:24 Last Admin: 06/11/21 23:41 Dose: 5 mls/min Documented by: [id number] Acetaminophen (Ofirmev) 1,000 mg in 100 mls @ 400 mls/hr IV NOW STA Stop: 06/11/21 23:45 Last Infusion: 06/12/21 00:05 Dose: 0 mls/hr Documented by: [id number] Admin: 06/11/21 23:47 Dose: 400 mls/hr Documented by: [id number] Lorazepam (Ativan) 0.25 mg in 0.5 mls @ 0.5 mls/min IV NOW STA Stop: 06/11/21 23:32 Last Admin: 06/11/21 23:38 Dose: 0.5 mls/min Documented by: [id number] Sodium Chloride (Nss 1000ml) 1,000 mls @ 125 mls/hr IV .Q8H DENISSE Stop: 06/12/21 03:52 Last Infusion: 06/12/21 05:09 Dose: 0 mls/hr Documented by: [id number] Admin: 06/11/21 23:47 Dose: 125 mls/hr Documented by: [id number] Piperacillin Sod/Tazobactam Sod (Zosyn) 4.5 gm in 120 mls @ 240 mls/hr IV NOW ONE Stop: 06/12/21 00:27 Last Infusion: 06/12/21 05:09 Dose: 0 mls/hr Documented by: [id number] Admin: 06/12/21 02:45 Dose: 240 mls/hr Documented by: [id number] Midazolam HCl (Midazolam Hcl 1 Mg/Ml 2ml Vial) Confirm Administered Dose 2 mg .ROUTE .STK-MED ONE Stop: 06/12/21 01:10 Last Admin: 06/12/21 02:46 Dose: 2 mg Documented by: [id number] Midazolam HCl (Midazolam Hcl 1 Mg/Ml 2ml Vial) 2 mg IV NOW STA Stop: 06/12/21 03:40 Last Admin: 06/12/21 05:04 Dose: Not Given Documented by: [id number] Miscellaneous (Rapid Sequence Induction Bag) Confirm Administered Dose 1 ea .ROUTE .STK-MED ONE Stop: 06/11/21 23:54 Last Admin: 06/12/21 00:00 Dose: 1 ea Documented by: [id number] Miscellaneous (Stat Iv Infusion Titration Per Protocol) 1 ea N/A NOW STA Stop: 06/12/21 00:05 Last Admin: 06/12/21 05:04 Dose: Not Given Documented by: [id number] Nicardipine HCl (Nicardipine Hcl Inj 2.5 Mg/Ml 10 Ml Amp) Confirm Administered Dose 25 mg .ROUTE .STK-MED ONE Stop: 06/12/21 01:10 Last Admin: 06/12/21 02:46 Dose: 25 mg Documented by: [id number] Nitroglycerin/Dextrose (Nitroglycerin/D5w 100mcg/Ml 20ml Syr) Confirm Administered Dose 2,000 mcg .ROUTE .STK-MED ONE Stop: 06/12/21 01:11 Last Admin: 06/12/21 02:47 Dose: 2,000 mcg Documented by: [id number] Ondansetron HCl (Ondansetron Inj 2 Mg/Ml 2 Ml Vial) 4 mg IV NOW STA Stop: 06/11/21 23:24 Last Admin: 06/11/21 23:30 Dose: 4 mg Documented by: [id number] Sodium Bicarbonate (Sodium Bicarb 8.4% Inj 50 Meq/50 Ml Syr) 50 meq IV NOW STA Stop: 06/12/21 01:12 Last Admin: 06/12/21 05:04 Dose: Not Given Documented by: [id number] Critical Care Time Critical Care Time: Yes Total Critical Care Time: 52 Critical care of 52 min performed to assess and manage high likelihood of life- threatening respiratory failure, involving labs and imaging performed with assessment to evaluate respiratory failure, AMS, and NSTEMI diagnosis with frequent reassessment. This time includes bedside time, treatment discussions with patient/family/consultants, documentation time and excludes procedure time. Medical Decision Making Differential Diagnosis Differential diagnoses includes but is not limited to pneumonia, bronchitis, COPD/Asthma exacerbation, pneumothorax, pulmonary embolism, congestive heart failure, acute coronary syndrome Medical Records Attestation: I reviewed the patient's medical records. Home Medications Current Medication List: was personally reviewed by me Laboratory Data Attestation: I reviewed the patient's lab results. Result diagrams: 06/12/21 04:36 06/12/21 04:36 Lab Results 06/11/21 06/11/21 06/11/21 Range/Units 23:25 23:25 23:25 WBC 17.64 H (4.8-10.8) K/uL RBC 3.39 L (4.2-5.4) M/uL Hgb 9.0 L (12.0-16.0) g/dL POC Hgb (12.0-16.0) g/dl Hct 31.5 L (37-47) % POC Hct (37-47) % MCV 92.9 (80-100) fL MCH 26.5 (25-34) pg MCHC 28.6 L (32-36) g/dL RDW Std Deviation 69.1 H (36.4-46.3) fL RDW Coeff of Lola 21.2 H (11.5-14.5) % Plt Count 311 (130-400) K/uL MPV 9.8 (7.4-10.4) fL Absolute Nucleated RBC 0.04 H (0-0) K/uL Nucleated RBC % (auto) 0.3 % Neutrophils % (Manual) 84.3 % Lymphocytes % (Manual) 7.8 % Monocytes % (Manual) 7.0 % Eosinophils % (Manual) 0.9 % Neutrophils # (Manual) 14.87 H (1.4-6.5) K/uL Total Absolute Neuts 14.87 H (1.4-6.5) K/uL Lymphocytes # (Manual) 1.38 (1.2-3.4) K/uL Total Abs Lymphocytes 1.38 (1.2-3.4) K/uL Monocytes # (Manual) 1.23 H (0.11-0.59) K/uL Eosinophils # (Manual) 0.16 (0-0.5) K/uL Polychromasia 1+ Echinocytes 1+ PT 11.5 (9.0-12.0) Seconds INR 1.1 (0.9-1.1) APTT 28.2 (21.0-31.0) Seconds PTT Ratio 1.1 Activ Coag Time Kaolin (94-140) SECONDS POC pH (7.35-7.45) POC pCO2 (35-46) mmHg POC pO2 (80-95) mmHg POC HCO3 (19-24) cornelio/L POC Total CO2 (24-31) mmol/L POC Base Excess (-9-1.8) cornelio/L POC ABG O2 Sat (90-95) % VBG pH (7.36-7.41) VBG pCO2 (38-50) mmHg VBG pO2 mmHg VBG HCO3 mmol/L VBG O2 Saturation % VBG Base Excess mEq/L POC Sodium (135-144) mmol/L Sodium 137 (136-145) mmol/L POC Potassium (3.3-5.0) mmol/L Potassium 4.8 (3.5-5.1) mmol/L Chloride 103 (98-107) mmol/L Carbon Dioxide 12 L (21-32) mmol/L Anion Gap 22.0 H (3-11) BUN 22 H (7-18) mg/dl Creatinine 0.96 (0.6-1.2) mg/dl Est Cr Clr Drug Dosing Not Reportable Est GFR ( Amer) 76.6 ml/min Est GFR (Non-Af Amer) 66.1 ml/min BUN/Creatinine Ratio 22.9 H (10-20) Glucose 168 H (70-99) mg/dl Lactate (0.4-2.0) mmol/L Calcium 8.8 (8.5-10.1) mg/dl Magnesium 2.5 H (1.8-2.4) mg/dl Total Bilirubin 0.3 (0.2-1) mg/dl AST 71 H (15-37) U/L ALT 48 (12-78) U/L Alkaline Phosphatase 191 H (45-117) U/L Troponin I 6.850 H* (0-0.045) ng/ml NT-Pro-B Natriuret Pep > 88090 H (0-900) pg/ml Total Protein 6.9 (6.4-8.2) gm/dl Albumin 2.8 L (3.4-5.0) gm/dl Globulin 4.1 H (2.5-4.0) gm/dl Albumin/Globulin Ratio 0.7 L (0.9-2) Procalcitonin (0-0.5) ng/ml Urine Color Urine Appearance (Clear) Urine pH (4.5-7.5) Ur Specific [place] (1.000-1.030) Urine Protein (Negative) Urine Glucose (UA) (Negative) Urine Ketones (Negative) Urine Blood (Negative) Urine Nitrite (Negative) Urine Bilirubin (Negative) Urine Urobilinogen (Negative) Ur Leukocyte Esterase (Negative) Urine WBC (Auto) (0-5) /hpf Urine RBC (Auto) (0-4) /hpf U Hyaline Cast (Auto) (0-5) /lpf U Epithel Cells (Auto) (0-5) /lpf Urine Bacteria (Auto) (Negative) Ur Renal Epithelial Cell Granular Casts (0) /lpf Urine Opiates Screen (Neg) Ur Methadone, Qual (Neg) Urine Barbiturates (Neg) Phenytoin (10-20) mcg/ml Ur Phencyclidine (PCP) (Neg) U Amphetamin/Meth Scrn (Neg) MDMA (Ecstasy) Screen (Neg) U Benzodiazepines Scrn (Neg) Ur Cocaine Metabolite (Neg) U Marijuana (THC) Screen (Neg) Ethyl Alcohol mg/dL (0-3) mg/dl COVID-19 Eval Order SARS-CoV-2 (PCR) (Negative) Blood Type Antibody Screen Crossmatch 06/11/21 06/11/21 06/11/21 Range/Units 23:25 23:25 23:25 WBC (4.8-10.8) K/uL RBC (4.2-5.4) M/uL Hgb (12.0-16.0) g/dL POC Hgb (12.0-16.0) g/dl Hct (37-47) % POC Hct (37-47) % MCV (80-100) fL MCH (25-34) pg MCHC (32-36) g/dL RDW Std Deviation (36.4-46.3) fL RDW Coeff of Lola (11.5-14.5) % Plt Count (130-400) K/uL MPV (7.4-10.4) fL Absolute Nucleated RBC (0-0) K/uL Nucleated RBC % (auto) % Neutrophils % (Manual) % Lymphocytes % (Manual) % Monocytes % (Manual) % Eosinophils % (Manual) % Neutrophils # (Manual) (1.4-6.5) K/uL Total Absolute Neuts (1.4-6.5) K/uL Lymphocytes # (Manual) (1.2-3.4) K/uL Total Abs Lymphocytes (1.2-3.4) K/uL Monocytes # (Manual) (0.11-0.59) K/uL Eosinophils # (Manual) (0-0.5) K/uL Polychromasia Echinocytes PT (9.0-12.0) Seconds INR (0.9-1.1) APTT (21.0-31.0) Seconds PTT Ratio Activ Coag Time Kaolin (94-140) SECONDS POC pH (7.35-7.45) POC pCO2 (35-46) mmHg POC pO2 (80-95) mmHg POC HCO3 (19-24) cornelio/L POC Total CO2 (24-31) mmol/L POC Base Excess (-9-1.8) cornelio/L POC ABG O2 Sat (90-95) % VBG pH (7.36-7.41) VBG pCO2 (38-50) mmHg VBG pO2 mmHg VBG HCO3 mmol/L VBG O2 Saturation % VBG Base Excess mEq/L POC Sodium (135-144) mmol/L Sodium (136-145) mmol/L POC Potassium (3.3-5.0) mmol/L Potassium (3.5-5.1) mmol/L Chloride (98-107) mmol/L Carbon Dioxide (21-32) mmol/L Anion Gap (3-11) BUN (7-18) mg/dl Creatinine (0.6-1.2) mg/dl Est Cr Clr Drug Dosing Est GFR ( Amer) ml/min Est GFR (Non-Af Amer) ml/min BUN/Creatinine Ratio (10-20) Glucose (70-99) mg/dl Lactate (0.4-2.0) mmol/L Calcium (8.5-10.1) mg/dl Magnesium (1.8-2.4) mg/dl Total Bilirubin (0.2-1) mg/dl AST (15-37) U/L ALT (12-78) U/L Alkaline Phosphatase (45-117) U/L Troponin I (0-0.045) ng/ml NT-Pro-B Natriuret Pep (0-900) pg/ml Total Protein (6.4-8.2) gm/dl Albumin (3.4-5.0) gm/dl Globulin (2.5-4.0) gm/dl Albumin/Globulin Ratio (0.9-2) Procalcitonin < 0.05 (0-0.5) ng/ml Urine Color Urine Appearance (Clear) Urine pH (4.5-7.5) Ur Specific [place] (1.000-1.030) Urine Protein (Negative) Urine Glucose (UA) (Negative) Urine Ketones (Negative) Urine Blood (Negative) Urine Nitrite (Negative) Urine Bilirubin (Negative) Urine Urobilinogen (Negative) Ur Leukocyte Esterase (Negative) Urine WBC (Auto) (0-5) /hpf Urine RBC (Auto) (0-4) /hpf U Hyaline Cast (Auto) (0-5) /lpf U Epithel Cells (Auto) (0-5) /lpf Urine Bacteria (Auto) (Negative) Ur Renal Epithelial Cell Granular Casts (0) /lpf Urine Opiates Screen (Neg) Ur Methadone, Qual (Neg) Urine Barbiturates (Neg) Phenytoin 3.2 L (10-20) mcg/ml Ur Phencyclidine (PCP) (Neg) U Amphetamin/Meth Scrn (Neg) MDMA (Ecstasy) Screen (Neg) U Benzodiazepines Scrn (Neg) Ur Cocaine Metabolite (Neg) U Marijuana (THC) Screen (Neg) Ethyl Alcohol mg/dL < 3.0 (0-3) mg/dl COVID-19 Eval Order SARS-CoV-2 (PCR) (Negative) Blood Type Antibody Screen Crossmatch 06/11/21 06/11/21 06/11/21 Range/Units 23:33 23:33 23:38 WBC (4.8-10.8) K/uL RBC (4.2-5.4) M/uL Hgb (12.0-16.0) g/dL POC Hgb (12.0-16.0) g/dl Hct (37-47) % POC Hct (37-47) % MCV (80-100) fL MCH (25-34) pg MCHC (32-36) g/dL RDW Std Deviation (36.4-46.3) fL RDW Coeff of Lola (11.5-14.5) % Plt Count (130-400) K/uL MPV (7.4-10.4) fL Absolute Nucleated RBC (0-0) K/uL Nucleated RBC % (auto) % Neutrophils % (Manual) % Lymphocytes % (Manual) % Monocytes % (Manual) % Eosinophils % (Manual) % Neutrophils # (Manual) (1.4-6.5) K/uL Total Absolute Neuts (1.4-6.5) K/uL Lymphocytes # (Manual) (1.2-3.4) K/uL Total Abs Lymphocytes (1.2-3.4) K/uL Monocytes # (Manual) (0.11-0.59) K/uL Eosinophils # (Manual) (0-0.5) K/uL Polychromasia Echinocytes PT (9.0-12.0) Seconds INR (0.9-1.1) APTT (21.0-31.0) Seconds PTT Ratio Activ Coag Time Kaolin (94-140) SECONDS POC pH (7.35-7.45) POC pCO2 (35-46) mmHg POC pO2 (80-95) mmHg POC HCO3 (19-24) cornelio/L POC Total CO2 (24-31) mmol/L POC Base Excess (-9-1.8) cornelio/L POC ABG O2 Sat (90-95) % VBG pH 7.02 L (7.36-7.41) VBG pCO2 47 (38-50) mmHg VBG pO2 24 mmHg VBG HCO3 12 mmol/L VBG O2 Saturation < 60.0 % VBG Base Excess -18.0 mEq/L POC Sodium (135-144) mmol/L Sodium (136-145) mmol/L POC Potassium (3.3-5.0) mmol/L Potassium (3.5-5.1) mmol/L Chloride (98-107) mmol/L Carbon Dioxide (21-32) mmol/L Anion Gap (3-11) BUN (7-18) mg/dl Creatinine (0.6-1.2) mg/dl Est Cr Clr Drug Dosing Est GFR ( Amer) ml/min Est GFR (Non-Af Amer) ml/min BUN/Creatinine Ratio (10-20) Glucose (70-99) mg/dl Lactate 15.6 H* (0.4-2.0) mmol/L Calcium (8.5-10.1) mg/dl Magnesium (1.8-2.4) mg/dl Total Bilirubin (0.2-1) mg/dl AST (15-37) U/L ALT (12-78) U/L Alkaline Phosphatase (45-117) U/L Troponin I (0-0.045) ng/ml NT-Pro-B Natriuret Pep (0-900) pg/ml Total Protein (6.4-8.2) gm/dl Albumin (3.4-5.0) gm/dl Globulin (2.5-4.0) gm/dl Albumin/Globulin Ratio (0.9-2) Procalcitonin (0-0.5) ng/ml Urine Color Urine Appearance (Clear) Urine pH (4.5-7.5) Ur Specific [place] (1.000-1.030) Urine Protein (Negative) Urine Glucose (UA) (Negative) Urine Ketones (Negative) Urine Blood (Negative) Urine Nitrite (Negative) Urine Bilirubin (Negative) Urine Urobilinogen (Negative) Ur Leukocyte Esterase (Negative) Urine WBC (Auto) (0-5) /hpf Urine RBC (Auto) (0-4) /hpf U Hyaline Cast (Auto) (0-5) /lpf U Epithel Cells (Auto) (0-5) /lpf Urine Bacteria (Auto) (Negative) Ur Renal Epithelial Cell Granular Casts (0) /lpf Urine Opiates Screen (Neg) Ur Methadone, Qual (Neg) Urine Barbiturates (Neg) Phenytoin (10-20) mcg/ml Ur Phencyclidine (PCP) (Neg) U Amphetamin/Meth Scrn (Neg) MDMA (Ecstasy) Screen (Neg) U Benzodiazepines Scrn (Neg) Ur Cocaine Metabolite (Neg) U Marijuana (THC) Screen (Neg) Ethyl Alcohol mg/dL (0-3) mg/dl COVID-19 Eval Order SARS-CoV-2 (PCR) (Negative) Blood Type O Positive Antibody Screen NEGATIVE Crossmatch See Detail 06/12/21 06/12/21 06/12/21 Range/Units 00:34 00:34 01:07 WBC (4.8-10.8) K/uL RBC (4.2-5.4) M/uL Hgb (12.0-16.0) g/dL POC Hgb (12.0-16.0) g/dl Hct (37-47) % POC Hct (37-47) % MCV (80-100) fL MCH (25-34) pg MCHC (32-36) g/dL RDW Std Deviation (36.4-46.3) fL RDW Coeff of Lola (11.5-14.5) % Plt Count (130-400) K/uL MPV (7.4-10.4) fL Absolute Nucleated RBC (0-0) K/uL Nucleated RBC % (auto) % Neutrophils % (Manual) % Lymphocytes % (Manual) % Monocytes % (Manual) % Eosinophils % (Manual) % Neutrophils # (Manual) (1.4-6.5) K/uL Total Absolute Neuts (1.4-6.5) K/uL Lymphocytes # (Manual) (1.2-3.4) K/uL Total Abs Lymphocytes (1.2-3.4) K/uL Monocytes # (Manual) (0.11-0.59) K/uL Eosinophils # (Manual) (0-0.5) K/uL Polychromasia Echinocytes PT (9.0-12.0) Seconds INR (0.9-1.1) APTT (21.0-31.0) Seconds PTT Ratio Activ Coag Time Kaolin (94-140) SECONDS POC pH (7.35-7.45) POC pCO2 (35-46) mmHg POC pO2 (80-95) mmHg POC HCO3 (19-24) cornelio/L POC Total CO2 (24-31) mmol/L POC Base Excess (-9-1.8) cornelio/L POC ABG O2 Sat (90-95) % VBG pH (7.36-7.41) VBG pCO2 (38-50) mmHg VBG pO2 mmHg VBG HCO3 mmol/L VBG O2 Saturation % VBG Base Excess mEq/L POC Sodium (135-144) mmol/L Sodium (136-145) mmol/L POC Potassium (3.3-5.0) mmol/L Potassium (3.5-5.1) mmol/L Chloride (98-107) mmol/L Carbon Dioxide (21-32) mmol/L Anion Gap (3-11) BUN (7-18) mg/dl Creatinine (0.6-1.2) mg/dl Est Cr Clr Drug Dosing Est GFR ( Amer) ml/min Est GFR (Non-Af Amer) ml/min BUN/Creatinine Ratio (10-20) Glucose (70-99) mg/dl Lactate (0.4-2.0) mmol/L Calcium (8.5-10.1) mg/dl Magnesium (1.8-2.4) mg/dl Total Bilirubin (0.2-1) mg/dl AST (15-37) U/L ALT (12-78) U/L Alkaline Phosphatase (45-117) U/L Troponin I (0-0.045) ng/ml NT-Pro-B Natriuret Pep (0-900) pg/ml Total Protein (6.4-8.2) gm/dl Albumin (3.4-5.0) gm/dl Globulin (2.5-4.0) gm/dl Albumin/Globulin Ratio (0.9-2) Procalcitonin (0-0.5) ng/ml Urine Color Yellow Urine Appearance Cloudy A (Clear) Urine pH 5.0 (4.5-7.5) Ur Specific [place] 1.015 (1.000-1.030) Urine Protein 1+ H (Negative) Urine Glucose (UA) Negative (Negative) Urine Ketones Negative (Negative) Urine Blood 3+ H (Negative) Urine Nitrite Negative (Negative) Urine Bilirubin Negative (Negative) Urine Urobilinogen Negative (Negative) Ur Leukocyte Esterase Negative (Negative) Urine WBC (Auto) 10-30 H (0-5) /hpf Urine RBC (Auto) 0-4 (0-4) /hpf U Hyaline Cast (Auto) >30 H (0-5) /lpf U Epithel Cells (Auto) >30 H (0-5) /lpf Urine Bacteria (Auto) 1+ H (Negative) Ur Renal Epithelial Cell Not Reportable Granular Casts 5-10 H (0) /lpf Urine Opiates Screen (Neg) Ur Methadone, Qual (Neg) Urine Barbiturates (Neg) Phenytoin (10-20) mcg/ml Ur Phencyclidine (PCP) (Neg) U Amphetamin/Meth Scrn (Neg) MDMA (Ecstasy) Screen (Neg) U Benzodiazepines Scrn (Neg) Ur Cocaine Metabolite (Neg) U Marijuana (THC) Screen (Neg) Ethyl Alcohol mg/dL (0-3) mg/dl COVID-19 Eval Order Covid19 at [facility] SARS-CoV-2 (PCR) NEGATIVE (Negative) Blood Type Antibody Screen Crossmatch 06/12/21 06/12/21 06/12/21 Range/Units 01:07 01:07 02:38 WBC (4.8-10.8) K/uL RBC (4.2-5.4) M/uL Hgb (12.0-16.0) g/dL POC Hgb 10.5 L (12.0-16.0) g/dl Hct (37-47) % POC Hct 31 L (37-47) % MCV (80-100) fL MCH (25-34) pg MCHC (32-36) g/dL RDW Std Deviation (36.4-46.3) fL RDW Coeff of Lola (11.5-14.5) % Plt Count (130-400) K/uL MPV (7.4-10.4) fL Absolute Nucleated RBC (0-0) K/uL Nucleated RBC % (auto) % Neutrophils % (Manual) % Lymphocytes % (Manual) % Monocytes % (Manual) % Eosinophils % (Manual) % Neutrophils # (Manual) (1.4-6.5) K/uL Total Absolute Neuts (1.4-6.5) K/uL Lymphocytes # (Manual) (1.2-3.4) K/uL Total Abs Lymphocytes (1.2-3.4) K/uL Monocytes # (Manual) (0.11-0.59) K/uL Eosinophils # (Manual) (0-0.5) K/uL Polychromasia Echinocytes PT (9.0-12.0) Seconds INR (0.9-1.1) APTT (21.0-31.0) Seconds PTT Ratio Activ Coag Time Kaolin 230 H (94-140) SECONDS POC pH 6.97 L* (7.35-7.45) POC pCO2 66 H (35-46) mmHg POC pO2 94 (80-95) mmHg POC HCO3 15 L (19-24) cornelio/L POC Total CO2 17 L (24-31) mmol/L POC Base Excess -16.0 L (-9-1.8) cornelio/L POC ABG O2 Sat 91.0 (90-95) % VBG pH (7.36-7.41) VBG pCO2 (38-50) mmHg VBG pO2 mmHg VBG HCO3 mmol/L VBG O2 Saturation % VBG Base Excess mEq/L POC Sodium 137 (135-144) mmol/L Sodium (136-145) mmol/L POC Potassium 4.1 (3.3-5.0) mmol/L Potassium (3.5-5.1) mmol/L Chloride (98-107) mmol/L Carbon Dioxide (21-32) mmol/L Anion Gap (3-11) BUN (7-18) mg/dl Creatinine (0.6-1.2) mg/dl Est Cr Clr Drug Dosing Est GFR ( Amer) ml/min Est GFR (Non-Af Amer) ml/min BUN/Creatinine Ratio (10-20) Glucose (70-99) mg/dl Lactate (0.4-2.0) mmol/L Calcium (8.5-10.1) mg/dl Magnesium (1.8-2.4) mg/dl Total Bilirubin (0.2-1) mg/dl AST (15-37) U/L ALT (12-78) U/L Alkaline Phosphatase (45-117) U/L Troponin I (0-0.045) ng/ml NT-Pro-B Natriuret Pep (0-900) pg/ml Total Protein (6.4-8.2) gm/dl Albumin (3.4-5.0) gm/dl Globulin (2.5-4.0) gm/dl Albumin/Globulin Ratio (0.9-2) Procalcitonin (0-0.5) ng/ml Urine Color Urine Appearance (Clear) Urine pH (4.5-7.5) Ur Specific [place] (1.000-1.030) Urine Protein (Negative) Urine Glucose (UA) (Negative) Urine Ketones (Negative) Urine Blood (Negative) Urine Nitrite (Negative) Urine Bilirubin (Negative) Urine Urobilinogen (Negative) Ur Leukocyte Esterase (Negative) Urine WBC (Auto) (0-5) /hpf Urine RBC (Auto) (0-4) /hpf U Hyaline Cast (Auto) (0-5) /lpf U Epithel Cells (Auto) (0-5) /lpf Urine Bacteria (Auto) (Negative) Ur Renal Epithelial Cell Granular Casts (0) /lpf Urine Opiates Screen Pos H (Neg) Ur Methadone, Qual Neg (Neg) Urine Barbiturates Pos H (Neg) Phenytoin (10-20) mcg/ml Ur Phencyclidine (PCP) Neg (Neg) U Amphetamin/Meth Scrn Neg (Neg) MDMA (Ecstasy) Screen Neg (Neg) U Benzodiazepines Scrn Neg (Neg) Ur Cocaine Metabolite Neg (Neg) U Marijuana (THC) Screen Pos H (Neg) Ethyl Alcohol mg/dL (0-3) mg/dl COVID-19 Eval Order SARS-CoV-2 (PCR) (Negative) Blood Type Antibody Screen Crossmatch 06/12/21 Range/Units 02:40 WBC (4.8-10.8) K/uL RBC (4.2-5.4) M/uL Hgb (12.0-16.0) g/dL POC Hgb (12.0-16.0) g/dl Hct (37-47) % POC Hct (37-47) % MCV (80-100) fL MCH (25-34) pg MCHC (32-36) g/dL RDW Std Deviation (36.4-46.3) fL RDW Coeff of Lola (11.5-14.5) % Plt Count (130-400) K/uL MPV (7.4-10.4) fL Absolute Nucleated RBC (0-0) K/uL Nucleated RBC % (auto) % Neutrophils % (Manual) % Lymphocytes % (Manual) % Monocytes % (Manual) % Eosinophils % (Manual) % Neutrophils # (Manual) (1.4-6.5) K/uL Total Absolute Neuts (1.4-6.5) K/uL Lymphocytes # (Manual) (1.2-3.4) K/uL Total Abs Lymphocytes (1.2-3.4) K/uL Monocytes # (Manual) (0.11-0.59) K/uL Eosinophils # (Manual) (0-0.5) K/uL Polychromasia Echinocytes PT (9.0-12.0) Seconds INR (0.9-1.1) APTT (21.0-31.0) Seconds PTT Ratio Activ Coag Time Kaolin (94-140) SECONDS POC pH 7.20 L (7.35-7.45) POC pCO2 43 (35-46) mmHg POC pO2 76 L (80-95) mmHg POC HCO3 17 L (19-24) cornelio/L POC Total CO2 18 L (24-31) mmol/L POC Base Excess -11.0 L (-9-1.8) cornelio/L POC ABG O2 Sat 91.0 (90-95) % VBG pH (7.36-7.41) VBG pCO2 (38-50) mmHg VBG pO2 mmHg VBG HCO3 mmol/L VBG O2 Saturation % VBG Base Excess mEq/L POC Sodium (135-144) mmol/L Sodium (136-145) mmol/L POC Potassium (3.3-5.0) mmol/L Potassium (3.5-5.1) mmol/L Chloride (98-107) mmol/L Carbon Dioxide (21-32) mmol/L Anion Gap (3-11) BUN (7-18) mg/dl Creatinine (0.6-1.2) mg/dl Est Cr Clr Drug Dosing Est GFR ( Amer) ml/min Est GFR (Non-Af Amer) ml/min BUN/Creatinine Ratio (10-20) Glucose (70-99) mg/dl Lactate (0.4-2.0) mmol/L Calcium (8.5-10.1) mg/dl Magnesium (1.8-2.4) mg/dl Total Bilirubin (0.2-1) mg/dl AST (15-37) U/L ALT (12-78) U/L Alkaline Phosphatase (45-117) U/L Troponin I (0-0.045) ng/ml NT-Pro-B Natriuret Pep (0-900) pg/ml Total Protein (6.4-8.2) gm/dl Albumin (3.4-5.0) gm/dl Globulin (2.5-4.0) gm/dl Albumin/Globulin Ratio (0.9-2) Procalcitonin (0-0.5) ng/ml Urine Color Urine Appearance (Clear) Urine pH (4.5-7.5) Ur Specific [place] (1.000-1.030) Urine Protein (Negative) Urine Glucose (UA) (Negative) Urine Ketones (Negative) Urine Blood (Negative) Urine Nitrite (Negative) Urine Bilirubin (Negative) Urine Urobilinogen (Negative) Ur Leukocyte Esterase (Negative) Urine WBC (Auto) (0-5) /hpf Urine RBC (Auto) (0-4) /hpf U Hyaline Cast (Auto) (0-5) /lpf U Epithel Cells (Auto) (0-5) /lpf Urine Bacteria (Auto) (Negative) Ur Renal Epithelial Cell Granular Casts (0) /lpf Urine Opiates Screen (Neg) Ur Methadone, Qual (Neg) Urine Barbiturates (Neg) Phenytoin (10-20) mcg/ml Ur Phencyclidine (PCP) (Neg) U Amphetamin/Meth Scrn (Neg) MDMA (Ecstasy) Screen (Neg) U Benzodiazepines Scrn (Neg) Ur Cocaine Metabolite (Neg) U Marijuana (THC) Screen (Neg) Ethyl Alcohol mg/dL (0-3) mg/dl COVID-19 Eval Order SARS-CoV-2 (PCR) (Negative) Blood Type Antibody Screen Crossmatch Imaging Data My Impression: X-ray: I interpreted the following studies. Chest: A single view study of the chest was reviewed and was negative for focal infiltrate, effusion, or wide mediastinum. Appearance of acute pulmonary edema and CM noted which is new compared to prior. KUB: no obvious SBO X-ray: I interpreted the following studies. Chest: A single view study of the ch est was reviewed and was negative for focal infiltrate, effusion, or wide mediastinum. Appearance of acute pulmonary edema and CM again noted, ETT now is good position also. ECG Data Attestation: I personally reviewed and interpreted this ECG as follows: Indication: + chest pain and + SOB/dyspnea Rate (beats per minute): 96 Rhythm: + normal sinus ECG Intervals/blocks: + Normal QRS and + Normal QT ECG [place]: + Normal ECG ST segments: + T-wave inversions (V5-6) MDM Narrative This is a 55-year-old female brought in by EMS due to chest pain, shortness of breath, and agitation. Patient with mild confusion although did answer a few simple questions. Difficulty obtaining vitals and redirecting the patient. Patient was hypoxic without oxygen supplementation and continued to pull away any nasal cannula or oxygen mask. IV had been established by EMS, we did attempt to secure a second IV and obtain additional labs. Orders placed while this was occurring, and I asked case management to bring the back for additional discussion. Patient with a stable heart rate and blood pressure, however off oxygen would drop into the low 80s. On a brief review of the EMR patient with significant history including recent admission for GI bleed. Patient was significant prior cardiac and pulmonary history. X-rays ordered and x-ray tech contacted, immediately to B1. EKG with subtle findings in V5 and V6, however no evidence of STEMI. Chest x-ray consistent with acute pulmonary edema which is likely contributing to patient's shortness of breath and chest pain. Initially fentanyl ordered for patient's pain although this did not seem to help. Tylenol added as well as a small dose of Ativan to try and help calm the patient so we can continue evaluating her, obtaining labs, placing an IV, and securing oxygen. RT called to the room and we try to transition the patient to high flow nasal cannula as I talked to the patient's . I then brought him to the room to see if he could help calm the patient in addition. Patient continued to be agitated, pulling off tubing and IVs, and I discussed with him intubation for airway protection, management of her oxygenation and breathing, inability to continue evaluating and treating her condition. He verbalized understanding was in agreement. Patient intubated successfully without any com plications. Post intubation chest x-ray revealed good position of the ET tube and similar appearance of her pulmonary edema. Following this propofol was added for sedation, IV Lasix was added for her pulmonary edema. I did ask RT following this to obtain an ABG. Case discussed with hospitalist for [facility] in the interim. As I placed additional orders, lab work began resulting. IV antibiotics have been ordered as a precaution out of concern. Patient found to have a troponin of 6, and I discussed the case with interventional cardiology, Dr. Hinojosa. We performed a [id number] bedside echo, and he reviewed her case and discussed her condition with the patient's at bedside after I updated him. Patient taken emergently for cardiac catheterization due to concern for new acute heart failure, abnormal EKG, and elevated troponin. Patient with multiple risk factors, prior history of CAD status post stent placement. I did discuss the case with the ICU. They came to the bedside also as Dr. Hinojosa was discussing the case with the patient's . An order was placed for continuous cardiac monitoring. The monitor shows a rate of _97_ with _normal sinus_ rhythm. Impression & Plan Altered mental status, CHF (congestive heart failure), Non-ST elevation HI (NSTEMI), Acidemia, Respiratory failure with hypoxia and hypercapnia Discharge Plan Visit Data Chief Complaint: Shortness of Breath/Dyspnea Stated Complaint: SOB ED Provider: Park [facility]le Discharge Problem: Altered mental status, CHF (congestive heart failure), Non-ST elevation HI (NSTEMI), Acidemia, Respiratory failure with hypoxia and hypercapnia Patient Disposition: Admitted As Inpatient Condition: Critical Discharge Instructions Interventions: ED Discharge Assessment Last Done: 06/12/21 01:20 Discharge Problem: Altered mental status Qualifiers: Altered mental status type: unspecified Qualified Code(s): R41.82 - Altered me ntal status, unspecified CHF (congestive heart failure) Qualifiers: Heart failure type: unspecified Heart failure chronicity: acute Qualified Code(s): I50.9 - Heart failure, unspecified Respiratory failure with hypoxia and hypercapnia Qualifiers: Chronicity: acute on chronic Qualified Code(s): J96.21 - Acute and chronic respiratory failure with hypoxia
[2021-06-12 00:14] LABS: Albumin Globulin Ratio 0.7 (0.9-2); Alkaline Phosphatase 191 U/L (45-117); Bilirubin,Total 0.3 mg/dl (0.2-1); Globulin 4.1 gm/dl (2.5-4.0); Total Protein 6.9 gm/dl (6.4-8.2)
[2021-06-12 00:14] LABS: Oxygen Saturation VBG < 60.0 %
[2021-06-12 00:24] LABS: ALC (manual) 1.38 K/uL (1.2-3.4); ANC (manual) 14.87 K/uL (1.4-6.5); Echinocytes 1+; Eosinophils # (manual) 0.16 K/uL (0-0.5); Eosinophils % (manual) 0.9 %; Lymphocytes # (manual) 1.38 K/uL (1.2-3.4); Lymphocytes % (manual) 7.8 %; Monocytes # (manual) 1.23 K/uL (0.11-0.59); Neutrophils # (manual) 14.87 K/uL (1.4-6.5); Neutrophils % (manual) 84.3 %; Polychromasia 1+
[2021-06-12 00:30] LABS: NT Pro B Type Natriuretic Pept > 35000 pg/ml (0-900)
[2021-06-12] MEDS ORDERED: ALBUT/IPRATROP 3MG/0.5MG NEB 3 ML VIAL ONE (00:31)
[2021-06-12] MEDS ORDERED: HEPARIN (PORCINE) 1000 UNIT/ML 10 ML (CATH LAB USE ONLY) ONE (01:09)
[2021-06-12] MEDS ORDERED: fentaNYL citrate 100 MCG/2 ML VIAL ONE (01:09)
[2021-06-12] MEDS ORDERED: niCARdipine HCL INJ 2.5 MG/ML 10 ML AMP ONE (01:09)
[2021-06-12] MEDS ORDERED: MIDAZOLAM HCL 1 MG/ML 2ML VIAL ONE (01:09)
[2021-06-12] MEDS ORDERED: NITROGLYCERIN/D5W 100MCG/ML 20ML SYR ONE (01:10)
[2021-06-12] MEDS ORDERED: STAT IV STA (01:11)
[2021-06-12] MEDS ORDERED: SODIUM BICARB 8.4% INJ 50 MEQ/50 ML SYR IV STA (01:11)
--- NOTE | 2021-06-12 01:12 | Cardiology Consultation ---
Date of Consultation June 12, 2021 Assessment & Plan (1) ACS (acute coronary syndrome): Presentation consistent with High risk NSTEMI with Acute heart failure and new severe LV dysfunction. Recommend proceeding with urgent cardiac catheterization and possible PCI. Discussed risks, benefits, alternatives of procedure with family and they are willing to proceed. Further recommendations pending findings of coronary angiography. History of Present Illness History of Present Illness 55-year-old woman seen emergently in the ED due to NSTEMI with new severe LV dysfunction, and acute systolic heart failure with respiratory failure. Patient's primary corporate legal manager is Dr. Arora with [facility]. She has a history of coronary artery disease post LAD stenting and carries a diagnosis of vasospastic angina. Had prior VT arrest thought secondary to vasospasm versus acquired QT prolongation, now post AICD. Peripheral arterial disease with left SFA occlusion and left subclavian stenosis, bilateral carotid artery disease. Other medical issues include seizure disorder, remote pulmonary embolism, COPD, myotonic muscular dystrophy, sacroiliitis, chronic pain syndrome, polyneuropathy with ?collagen vascular disorder. She is an active smoker. She was recently admitted to [facility] due to syncope in the setting of acute blood loss anemia with hemoglobin down to 5.4 thought secondary to GI bleed. Mild troponin elevation to 1.4. Echocardiogram showed preserved LV function without wall motion abnormalities at that time. History today obtained from significant other. He states that this morning she had chest pain which has been normal for her for at least weeks. When he returned from work found patient in acute distress endorsing pain all over involving her chest, abdomen and legs. She became ncreasingly agitated, less responsive leading to 911. In ED significant respiratory distress led to intubation. Chest x-ray with significant pulmonary edema, initial troponin 6.85, NT proBNP greater than 35,000. Bedside echo showed new severe LV dysfunction with LAD distribution wall motion abnormality. Allergies Allergy/AdvReac Type Severity Reaction Status Date / Time bee venom protein (honey bee) Allergy Severe Anaphylaxis Verified 06/12/21 00:03 -HIVES latex Allergy Intermediate HIVES, Verified 06/12/21 00:03 BLISTERS scopolamine Allergy Unknown Unknown Verified 06/12/21 00:03 azithromycin [From Zithromax] AdvReac Severe STOMACH Verified 06/12/21 00:03 ULCERS, BLEEDING, ARRYTHMIAS dexbrompheniramine AdvReac Severe CARDIAC Verified 06/12/21 00:03 SPASMS--ALL ANTIHISTAMINES pseudoephedrine AdvReac Severe CARDIAC Verified 06/12/21 00:03 SPASMS--ALL ANTIHISTAMINES levofloxacin AdvReac Intermediate QTC Verified 06/12/21 00:03 PROLONGATION H/O VF ARREST meperidine AdvReac Intermediate NAUSEA, Verified 06/12/21 00:03 VOMITING methadone AdvReac Intermediate NAUSEA, Verified 06/12/21 00:03 VOMITING, RASH diphenhydramine AdvReac Mild "ARTERITAL Verified 06/12/21 00:03 SPASMS" FLU VIRUS VACCINE Allergy Severe EDEMA Uncoded 06/12/21 00:03 AIRWAY COLD AdvReac Unknown VASCULAR Uncoded 06/12/21 00:03 COLLAPSE SYNDROME Home Medications Medication Instructions Recorded Confirmed Type albuterol sulfate 90 mcg/actuation 2 puff INHALATION Q4 PRN 05/15/21 06/12/21 History aerosol inhaler aspirin 81 mg tablet,delayed 81 mg PO DAILY 05/15/21 06/12/21 History release atorvastatin 80 mg tablet 80 mg PO HS 05/15/21 06/12/21 History diltiazem HCl 240 mg capsule,24 480 mg PO DAILY 05/15/21 06/12/21 History hr,extended release epinephrine 0.3 mg/0.3 mL 0.3 mg IM UD PRN 05/15/21 06/12/21 History injection, auto-injector (EpiPen) fluticasone propionate 50 2 spray INTRANASAL DAILY 05/15/21 06/12/21 History mcg/actuation nasal spray,suspension furosemide 20 mg tablet 20 mg PO DAILY 05/15/21 06/12/21 History gabapentin 600 mg tablet 600 mg PO TID 05/15/21 06/12/21 History isosorbide dinitrate 5 mg tablet 5 mg PO DIRECTED PRN 05/15/21 06/12/21 History isosorbide mononitrate 120 mg 120 mg PO AMPM 05/15/21 06/12/21 History tablet,extended release 24 hr levetiracetam 1,000 mg tablet 1,000 mg PO BID 05/15/21 06/12/21 History lisinopril 5 mg tablet 10 mg PO DAILY 05/15/21 06/12/21 History loratadine 10 mg tablet 10 mg PO DAILY 05/15/21 06/12/21 History morphine 30 mg tablet,extended 30 mg PO BID 05/15/21 06/12/21 History release oxycodone 5 mg tablet 5 mg PO Q6 PRN 05/15/21 06/12/21 History phenytoin sodium extended 100 mg 100 mg PO TID 05/15/21 06/12/21 History capsule potassium chloride 20 mEq 40 meq PO DAILY 05/15/21 06/12/21 History tablet,extended release(part/cryst) prazosin 1 mg capsule 1 mg PO BID 05/15/21 06/12/21 History protein 500 mg chewable tablet 500 mg PO DAILY 05/15/21 06/12/21 History tizanidine 4 mg tablet 4 mg PO Q8 PRN 05/15/21 06/12/21 History trazodone 50 mg tablet 100 mg PO HS 05/15/21 06/12/21 History ferrous sulfate 325 mg (65 mg 325 mg PO BIDM #60 tab 05/18/21 06/12/21 Rx iron) tablet,delayed release pantoprazole 40 mg tablet,delayed 40 mg PO BID #60 tab 05/18/21 06/12/21 Rx release acetaminophen 325 mg tablet 325 mg PO Q6H PRN 06/12/21 06/12/21 History (Tylenol) aspirin 325 mg tablet,delayed 650 mg PO BID PRN 06/12/21 06/12/21 History release gabapentin 300 mg capsule 300 mg PO TID 06/12/21 06/12/21 History guaifenesin 600 mg tablet, 600 mg PO Q12H PRN 06/12/21 06/12/21 History extended release 12 hr ondansetron HCl 4 mg tablet 4 mg PO Q8H PRN 06/12/21 06/12/21 History (Zofran) primidone 50 mg tablet 50 mg PO TID 06/12/21 06/12/21 History Patient History Social History Smoking Status: Current every day smoker Tobacco Type: Cigarettes Second Hand Exposure: No; Hx Alcohol Use: No Hx Substance Use: Yes Last Used Substance: Days (ago) Communication Ability: Effective Beliefs That Will Affect Care: None marital status: Current Living Situation: Family Feels Safe at Home: Yes Assistive Devices: Cane, Walker and Wheelchair Review of Systems Review of Systems: Unobtainable due to endotracheal tube Physical Exam Constitutional: + ill appearing and + thin Eyes: + anicteric sclerae Respiratory: normal respiratory effort Cardiovascular: Rate/Rhythm: regular rate Heart Sounds: no murmur Gastrointestinal (Abdomen): Inspection/Auscultation: abdomen not distended Percussion/Palpation: abdomen soft Skin: no rashes, warm and dry Psychiatric: Intubated/Sedated Results & Data ([facility]) Vital Signs (Past 12 Hours) Vital Signs Pulse Pulse Resp BP Pulse Ox 06/12/21 00:46 92 H 26 H 96 06/12/21 00:44 100 06/12/21 00:30 90 100 06/12/21 00:20 91 H 06/12/21 00:10 91 H 90 26 H 91 06/12/21 00:00 88 83 L 06/11/21 23:50 93 H 06/11/21 23:45 93 H 06/11/21 23:30 96 H 144/108 H 89 L 06/11/21 23:26 95 H 85 L PG Care Time/CCT Total # of Minutes Spent Total Time Spent with Patient: Total time spent is greater than 50% in coordination of care (as documented) at patient's floor/unit and/or counseling patient: Coding Level of Care Code 57446 Inpt Consult Level 5 Diagnoses ACS (acute coronary syndrome) I24.9
[2021-06-12] MEDS ORDERED: SODIUM BICARBONATE 8.4% 150 MEQ in DEXTROSE 5% 1,000 ML IV SCH (01:15)
[2021-06-12 01:22] LABS: iSTAT Arterial Blood Gas HCO3 15 meg/L (19-24); iSTAT Arterial Blood Gas pCO2 66 mmHg (35-46); iSTAT Arterial Blood Gas pH 6.97 (7.35-7.45); iSTAT Arterial Blood Gas pO2 94 mmHg (80-95); iSTAT Carbon Dioxide 17 mmol/L (24-31); iSTAT Hematocrit 31 % (37-47); iSTAT Hemoglobin 10.5 g/dl (12.0-16.0); iSTAT Potassium 4.1 mmol/L (3.3-5.0); iSTAT Sodium 137 mmol/L (135-144)
[2021-06-12 01:28] LABS: Appearance Urine Cloudy (Clear); Bilirubin Urine Negative (Negative); Blood Urine 3+ (Negative); Color Urine Yellow; Epithelial Cell Urine Auto >30 /lpf (0-5); Glucose Urine UA Negative (Negative); Ketones Urine Negative (Negative); Leukocyte Esterase Urine Negative (Negative); Nitrite Urine Negative (Negative); Protein Urine 1+ (Negative); RBC Urine Automated 0-4 /hpf (0-4); Specific Gravity Urine 1.015 (1.000-1.030); Urobilinogen Urine Negative (Negative)
[2021-06-12 02:06] LABS: Amphetamines+Metham, Urine Neg (Neg); Barbiturates, Urine Pos (Neg); Benzodiazepine, Urine Neg (Neg); Cocaine, Urine Neg (Neg); MDMA (Ecstacy), Urine Neg (Neg); Methadone, Urine Neg (Neg); Opiate, Urine Pos (Neg); Phencyclidine, Urine Neg (Neg)
[2021-06-12 02:18] LABS: Bacteria Urine Automated 1+ (Negative); Cast Urine Automated >30 /lpf (0-5)
[2021-06-12 03:14] LABS: iSTAT Arterial Blood Gas HCO3 17 meg/L (19-24); iSTAT Arterial Blood Gas pCO2 43 mmHg (35-46); iSTAT Arterial Blood Gas pO2 76 mmHg (80-95); iSTAT Carbon Dioxide 18 mmol/L (24-31)
--- NOTE | 2021-06-12 03:38 | Cardiac Catheterization ---
[facility] Data: [employer] Cardiac Status Clinical evaluation leading to the procedure CAD Presenation: STEMI Anginal Classification: CCS IV Heart Failure: NYHA Class: CCS IV Cardiogenic Shock within 24 Hours: No Cardiac Arrest within 24 Hours: No Imaging Studies Past 6 Months: Yes Stress Studies Past 6 Months: No Diagnostic Physicians Name: Ivan Hinojosa MD Status: Urgent Closure Device Percutaneous Entry Location: Radial Closure Device: Mynx and Radial Band Recommendations: PCI without planned CABG PCI Indication: PCI for high risk Non-CATRINA Lesion Segment Name: Proximal LAD Culprit Artery: Yes Stenosis Prior to Rx (%): 90 Chronic Total Occlusion: No IVUS: No FFR: No Pre-Procedure MESFIN Flow: 3 Previously Treated Lesion: No Lesion Complexity: Non-High/Non-C Lesion Length (mm): 12 Thrombus Present: Yes Bifurcation Lesion: No Guidewire Across Lesion: Stenosis Post-Procedure (%): 0 Post-Procedure MESFIN Flow: 3 Devices(s) Deployed: Yes Yes Intraprocedure Events Significant Disection: No Perforation: No Cardiac Cath Procedure Full Procedure Date June 12, 2021 Pre-Procedure Diagnosis Pre-Procedure Diagnosis: Non STEMI, CHF and Cardiomyopathy AUC Score AUC Score: 8 Post-Procedure Diagnosis Post-Procedure Diagnosis: Severe CAD, Successful PCI and Elevated Intracardiac Pressures Procedure(s) Performed Procedure(s) Performed: Coronary Angiography, Left Heart Cath, Drug Eluting Stent and Ultrasound Guided Vascular Access Head Of Loss Prevention Ivan Hinojosa MD Boarding Specialist(s) [place] Estimated Blood Loss Estimated Blood Loss: 20 Medication(s) Medication(s): Clopidogrel, Fentanyl, Heparin, Lidocaine 1%, Nicardipine, Nitroglycerin and Versed Summary of Findings Indication: High risk NSTEMI, acute heart failure with respiratory failure, new severe LV dysfunction Access: No right radial artery pulse noted. Known history of left subclavian artery stenosis Multiple attempts made at right ulnar artery access. Attempt made at right common femoral artery access but unable to navigate wire into external iliac Obtained left BATCH ROLLER OPERATOR access, with some difficulty was able to pass a wire through abdominal aorta up to ascending thoracic aorta. Unable though to pass a 5 Fr catheter over wire across apparent abdominal aorta near occlusive disease Eventually able to obtain 6 Fr access in a deep proximal branch of right radial artery Catheters: SANTIAGO Vance 3.5 guide Findings: LM -medium caliber, luminal irregularities LAD -medium caliber, 90% proximal stenosis (possibly acute), widely patent mid LAD stent. Distal vessel wraps around apex. Circumflex -medium caliber, 30% ostial, 30% mid after takeoff of OM1 RCA -dominant, 100% mid chronic occlusion. Distal vessel fills via [id number] collaterals. LVEDP -34 -- PCI -- Antithrombotic therapy: Heparin, clopidogrel Procedure: Left main cannulated with EBU 3.5 guide Yield Loss Inspector 50 wire passed across lesion into distal vessel Proximal LAD lesion predilated with 2.5 compliant balloon Dilated lesion stented with 3.0 x 18 mm Soham drug-eluting stent which overlapped proximal aspect of prior stent. Stent post-dilated with 3.5 noncompliant balloon IC vasodilators administered for spasm Post procedure MESFIN 3 flow, stent well expanded with minimal residual stenosis and no apparent cardiac complications. Arterial Closure: TR band Summary: 1. Severe multivessel vessel coronary artery disease -90% possibly acute proximal LAD stenosis. Patent mid LAD stent 100% chronic mid RCA occlusion. Distal vessel fills via [id number] collaterals. 2. Elevated intracardiac filling pressure. LVEDP 34 3. Severe obstructive abdominal aortic disease (unable to pass 5 Fr catheter across stenosis). 4. Successful PCI of proximal to mid LAD with single drug-eluting stent (3.0 x 18 mm Kane; postdilated with 3.5 NC, overlaps proximal aspect of prior stent). Recommendations: To iCU for continued monitoring Continue IV diuresis Load with clopidogrel 600 mg Continue dual-antiplatelet therapy for ideally 1 year. If recurrent bleeding concerns antiplatelet therapy could be deescalated as soon as 1 month Trend troponin until peak Formal echocardiogram in a.m. Continue statin, and ASCVD risk factor modification Consult cardiac Rehab Hemodynamics Rest Ao:: 113/51/76 Final Ao: 100/47/69 LV: 124/34 Recommendations Recommendations: PCI without planned CABG Specimens Specimens: None Radiation Exposure (mGy) 951 Contrast (mls) 60 Fluids (cc crystalloids) Fluids (cc crystalloids): 180 Drains Drains: None Anesthesia [id number] Procedural Complication(s) None Disposition ICU I attest to the content of the Intraoperative Record and any orders documented therein. Any exceptions are noted below. [employer] Card Cath Procedure Codes Cardiac Catheterization Procedure 1: Cardiovascular Cath Procedures: 67363 Coronaries and LHC (+/-LV) Therapeutic Services & Ancillary Proc Procedure 1: Cardiovascular Tx and Anc Procedures: 03189 Ultrasonic Guidance Vascular Access Procedure 2: Cardiovascular Tx and Anc Procedures: 88357 Ultrasonic Guidance Vascular Access Moderate Sedation Procedure 1: Sedation/Anesthesia: 23154 Mod Sedation by the same physician;Init15 Min Child Age 5 & Up Procedure 2: Sedation/Anesthesia: 63319 Mod Sedation by the same physician; Ea [id number] Minutes Stenting Procedure 1: Cardiovascular Stent Procedures: 93920 Perc transcatheter placement of intracoronary stent(s), with ang PG Care Time/CCT Total # of Minutes Spent Total Time Spent with Patient: Total time spent is greater than 50% in coordination of care (as documented) at patient's floor/unit and/or counseling patient:
[2021-06-12] MEDS ORDERED: MIDAZOLAM HCL 1 MG/ML 2ML VIAL IV STA (03:39)
--- NOTE | 2021-06-12 03:39 | Critical Care Consultation ---
Date of Consultation June 12, 2021 Assessment & Plan (1) ACS (acute coronary syndrome): Reason Critically Ill: 55-year-old female presents to the ICU following event of acute coronary syndrome and acute heart failure with hypoxic hypercapnic respiratory failure requiring emergent intubation. Now post cardiac catheter she received a single drug-eluting stent to the proximal LAD for 90% stenosis. Neuro - Sedation: Propofol Seizure disordercontinue Keppra, phenytoin, primidone Polyneuropathycontinue Neurontin Cardiac - Acute coronary syndromepatient presented with NSTEMI with new LV dysfunction and troponin of 6.5, and respiratory distress -Status post successful PCI with single AKIKO to the proximal LAD for 90% stenosis -Patient also noted to have severe CAD with 100% occlusion RCA with collateral flow -Trend troponin for peak, follow-up official echo -Patient loaded with clopidogrel 600 mg -Started on dual antiplatelet therapy, continue statin, lisinopril, isosorbide mononitrate -Continuous monitoring on telemetry Respiratory - Acute hypoxic hypercapnic respiratory failurechest x-ray consistent with acute pulmonary edema following acute coronary syndrome with severely reduced LV function and elevated LV pressures. Consistent with acute heart failure. Jane rgently intubated for severe respiratory distress and hypoxia. -RV noted to be normal on bedside echo, no tachycardia or hypotension. Low suspicion for PE and patient would be a poor candidate for anticoagulation due to GI bleed. -Cannot rule out possible pneumonia, see ID below -Patient with history of COPD and active smoker. -Duo nebs as needed -Continue with diuresis with Lasix -Continuous pulse ox and end-tidal monitoring -Follow-up repeat ABG and wean vent as tolerated GI - GI bleedpatient with positive occult stool in the ED. Current hemoglobin stable at 9. -She had a recent admission for GI bleed with hemoglobin is found to be 5.4 with plan to undergo endoscope -Currently on Protonix drip -Hold anticoagulation. We will proceed with dual antiplatelet therapy for now as patient presents with acute coronary syndrome -GI consulted, will follow up recs -Monitor RENAL/LYTES - Metabolic acidosispatient with significantly elevated lactic acidosis of 15, suspect this is likely secondary to patient's severe hypoxia which she presented with in the ED -Expect to improve following improvement in oxygenation/hemodynamics -Continue to trend -Patient did receive 1 amp bicarb and is currently on bicarb drip. Will monitor pH with frequent ABGs and trend as necessary - Foleystrict I's and O's ENDO - No history of diabetes, ICU hyperglycemic protocol No history of thyroid disease, TSH pending HEME - Anemiasecondary to acute blood loss from GI bleed -Hemoglobin currently stable at 9 -Monitor routine CBCs and transfuse for hemoglobin less than 8 ID - No clear indication for infectious process at this time, however cannot rule out possible pneumonia at this time Patient afebrile, pro calcitonin negative. Suspect elevated lactate secondary to hypoxia, will trend for now. WBC 12,000 likely reactionary. Sputum culture pending Continue empiric Zosyn for now LINES/IV ACCESS - Peripheral IVs DVT PROPHYLAXIS - SCDs, holding anticoagulation in the setting of I have personally spent 65 minutes of critical care time in the direct management of this patient. This is a life/limb threatening event. This includes time spent evaluating patient, direct bedside care, chart review, placing orders, interpretation of diagnostic studies, discussion with consultants, patient, and family members, as well as other required patient management activities. This time is exclusive of all separately billable procedures, and teaching time and separate from and in addition to any other critical care service time. Thank you for allowing us to participate in the care of this patient. Please refer to my attending physician's documentation for any further recommendations. (2) CHF (congestive heart failure): (3) Non-ST elevation [place] (NSTEMI): (4) Respiratory failure with hypoxia and hypercapnia: (5) Acidemia: (6) Pacemaker: (7) Anemia: (8) GI bleed: (9) PAD (peripheral artery disease): (10) H/O diastolic dysfunction: (11) Elevated troponin: Supervising Physician Co-Signing Physician Notes Seen and examined. Please refer to my critical care addendum. Agree with a ssessment and plan as noted above History of Present Illness Attending Physician: Ivan Hinojosa MD History of Present Illness Patient is a 55-year-old female with past medical history significant for coronary artery disease (LAD stent), VT arrest (s/p AICD), PAD, bilateral carotid artery disease (s/p endarterectomy), seizure disorder, pulmonary embolism, COPD, myotonic muscular dystrophy, polyneuropathy, and tobacco abuse. She had a recent hospitalization where she was treated for acute GI bleed and anemia with hemoglobin 5.4, and plan for patient undergo endoscope. The patient's significant other called 911 this evening when patient developed acute respiratory distress and was complaining of chest pain, abdomen pain and leg pain. On arrival to the emergency department the patient was agitated and becoming less responsive. She was in significant respiratory distress and was emergently intubated. Chest x-ray consistent with pulmonary edema and patient was noted to have initial troponin of 6.85 and BNP greater than 35,000. A bedside echo was performed which showed severe LV dysfunction with LAD distribution wall motion abnormality, which was a new finding as she was noted to have normal LV function on her last echo in May. Patient was evaluated by interventional cardiology at the bedside and was noted to have high risk NSTEMI with acute heart failure and new severe LV dysfunction and she was taken emergently to the [facility] where she was found to have 90% stenosis of proximal LAD and severe multivessel disease with 100% chronic mid RCA occlusion with collateral flow. She was also noted to have elevated intracardiac filling pres sure LVEDP 34. She underwent successful PCI of the proximal to mid LAD with a single drug-eluting stent. Patient now admitted to ICU for further management at this time. Allergies Allergy/AdvReac Type Severity Reaction Status Date / Time bee venom protein (honey bee) Allergy Severe Anaphylaxis Verified 06/12/21 00:03 -HIVES latex Allergy Intermediate HIVES, Verified 06/12/21 00:03 BLISTERS scopolamine Allergy Unknown Unknown Verified 06/12/21 00:03 azithromycin [From Zithromax] AdvReac Severe STOMACH Verified 06/12/21 00:03 ULCERS, BLEEDING, ARRYTHMIAS dexbrompheniramine AdvReac Severe CARDIAC Verified 06/12/21 00:03 SPASMS--ALL ANTIHISTAMINES pseudoephedrine AdvReac Severe CARDIAC Verified 06/12/21 00:03 SPASMS--ALL ANTIHISTAMINES levofloxacin AdvReac Intermediate QTC Verified 06/12/21 00:03 PROLONGATION H/O VF ARREST meperidine AdvReac Intermediate NAUSEA, Verified 06/12/21 00:03 VOMITING methadone AdvReac Intermediate NAUSEA, Verified 06/12/21 00:03 VOMITING, RASH diphenhydramine AdvReac Mild "ARTERITAL Verified 06/12/21 00:03 SPASMS" FLU VIRUS VACCINE Allergy Severe EDEMA Uncoded 06/12/21 00:03 AIRWAY COLD AdvReac Unknown VASCULAR Uncoded 06/12/21 00:03 COLLAPSE SYNDROME Home Medications Medication Instructions Recorded Confirmed Type albuterol sulfate 90 mcg/actuation 2 puff INHALATION Q4 PRN 05/15/21 06/12/21 History aerosol inhaler aspirin 81 mg tablet,delayed 81 mg PO DAILY 05/15/21 06/12/21 History release atorvastatin 80 mg tablet 80 mg PO HS 05/15/21 06/12/21 History diltiazem HCl 240 mg capsule,24 480 mg PO DAILY 05/15/21 06/12/21 History hr,extended release epinephrine 0.3 mg/0.3 mL 0.3 mg IM UD PRN 05/15/21 06/12/21 History injection, auto-injector (EpiPen) fluticasone propionate 50 2 spray INTRANASAL DAILY 05/15/21 06/12/21 History mcg/actuation nasal spray,suspension furosemide 20 mg tablet 20 mg PO DAILY 05/15/21 06/12/21 History gabapentin 600 mg tablet 600 mg PO TID 05/15/21 06/12/21 History isosorbide dinitrate 5 mg tablet 5 mg PO DIRECTED PRN 05/15/21 06/12/21 History isosorbide mononitrate 120 mg 120 mg PO AMPM 05/15/21 06/12/21 History tablet,extended release 24 hr levetiracetam 1,000 mg tablet 1,000 mg PO BID 05/15/21 06/12/21 History lisinopril 5 mg tablet 10 mg PO DAILY 05/15/21 06/12/21 History loratadine 10 mg tablet 10 mg PO DAILY 05/15/21 06/12/21 History morphine 30 mg tablet,extended 30 mg PO BID 05/15/21 06/12/21 History release oxycodone 5 mg tablet 5 mg PO Q6 PRN 05/15/21 06/12/21 History phenytoin sodium extended 100 mg 100 mg PO TID 05/15/21 06/12/21 History capsule potassium chloride 20 mEq 40 meq PO DAILY 05/15/21 06/12/21 History tablet,extended release(part/cryst) prazosin 1 mg capsule 1 mg PO BID 05/15/21 06/12/21 History protein 500 mg chewable tablet 500 mg PO DAILY 05/15/21 06/12/21 History tizanidine 4 mg tablet 4 mg PO Q8 PRN 05/15/21 06/12/21 History trazodone 50 mg tablet 100 mg PO HS 05/15/21 06/12/21 History ferrous sulfate 325 mg (65 mg 325 mg PO BIDM #60 tab 05/18/21 06/12/21 Rx iron) tablet,delayed release pantoprazole 40 mg tablet,delayed 40 mg PO BID #60 tab 05/18/21 06/12/21 Rx release acetaminophen 325 mg tablet 325 mg PO Q6H PRN 06/12/21 06/12/21 History (Tylenol) aspirin 325 mg tablet,delayed 650 mg PO BID PRN 06/12/21 06/12/21 History release gabapentin 300 mg capsule 300 mg PO TID 06/12/21 06/12/21 History guaifenesin 600 mg tablet, 600 mg PO Q12H PRN 06/12/21 06/12/21 History extended release 12 hr ondansetron HCl 4 mg tablet 4 mg PO Q8H PRN 06/12/21 06/12/21 History (Zofran) primidone 50 mg tablet 50 mg PO TID 06/12/21 06/12/21 History Patient History Social History Smoking Status: Current every day smoker Tobacco Type: Cigarettes Second Hand Exposure: No; Do You Dip or Chew Tobacco: No; Tobacco Cessation Education Requested by Patient: No Hx Alcohol Use: No Hx Substance Use: Yes Last Used Substance: Unknown Preferred Language: Welsh Communication Ability: Unable Communication Ability Comment: Intubated Ergonomist Required: No Beliefs That Will Affect Care: None marital status: Current Living Situation: Family Other Information That Helps Us Care for You: No Feels Safe at Home: Yes Safety Concerns: Feels Safe At This Time Assistive Devices: Walker and Wheelchair Review of Systems Review of Systems: Unobtainable due to endotracheal tube and Unobtainable due to reduced consciousness Physical Exam Constitutional: + thin and + mechanically ventilated Eyes: PERRL, conjunctivae normal, anicteric sclerae ENMT: external ear and nose normal, oropharynx normal Neck: trachea midline, no thyromegaly Respiratory: Symmetrical chest wall movement, mechanically ventilated, fine crackles auscultated bilaterally in all lung snyder. Cardiovascular: Rate/Rhythm: regular rate and regular rhythm Heart Sounds: normal S1 and normal S2 Vessels: no JVD Gastrointestinal (Abdomen): normal bowel sounds, soft, nontender, no hepatosplenomegaly Musculoskeletal: Exam limited due to sedation. No physical abnormalities noted on exam Skin: no rashes, warm and dry Neurologic: Unable to assess due to sedation Psychiatric: Unable to assess due to sedation Genitourinary: Indwelling Rosas catheter present Results & Data Results & Data ([facility]) Vital Signs (Past 12 Hours) Vital Signs Pulse Pulse Resp BP Pulse Ox 06/12/21 01:11 29 H 06/12/21 01:10 92 H 132/74 93 06/12/21 01:00 93 H 129/75 92 06/12/21 00:50 92 H 133/77 94 06/12/21 00:46 92 H 26 H 96 06/12/21 00:44 100 06/12/21 00:40 91 H 98 06/12/21 00:30 90 100 06/12/21 00:28 90 26 H 98 06/12/21 00:20 91 H 06/12/21 00:10 91 H 90 26 H 91 06/12/21 00:00 88 83 L 06/11/21 23:50 93 H 06/11/21 23:45 93 H 06/11/21 23:30 96 H 144/108 H 89 L 06/11/21 23:26 95 H 85 L Coding Level of Care Code Critical Care 1st 30-74 mins Diagnoses CHF (congestive heart failure) I50.9 Heart failure chronicity: acute Heart failure type: unspecified Non-ST elevation [place] (NSTEMI) I21.4 ACS (acute coronary syndrome) I24.9 Respiratory failure with hypoxia and hypercapnia J96.21; J96.22 Chronicity: acute on chronic Acidemia E87.2 Pacemaker Z95.0 Anemia D64.89 Anemia type: other cause Other causes of anemia: other cause, not classified GI bleed K92.2 PAD (peripheral artery disease) I73.9 H/O diastolic dysfunction Z86.79 Elevated troponin R77.8 (1) CHF (congestive heart failure) Heart failure chronicity: acute Heart failure type: unspecified Qualified Code(s): I50.9 - Heart failure, unspecified (2) Anemia Anemia type: other cause Other causes of anemia: other cause, not classified Qualified Code(s): D64.89 - Other specified anemias (3) Respiratory failure with hypoxia and hypercapnia Chronicity: acute on chronic Qualified Code(s): J96.21 - Acute and chronic respiratory failure with hypoxia; J96.22 - Acute and chronic respiratory failure with hypercapnia
[2021-06-12] MEDS ORDERED: ICU PROTOCOL FOR HYPERGLYCEMIA PRN (03:53)
[2021-06-12] MEDS ORDERED: ISOSORBIDE DINITRATE 5 MG TAB PO PRN (04:38)
[2021-06-12] MEDS ORDERED: ALBUTEROL HFA 8 GM INHALER INH PRN (04:38)
[2021-06-12] MEDS ORDERED: HYDROmorphone INJ 1 MG/ML SYRINGE IV PRN (04:38)
[2021-06-12 04:48] LABS: Basophils # (auto) 0.02 K/uL (0-0.2); Basophils % (auto) 0.1 %; Hematocrit (blood only) 29.2 % (37-47); Hemoglobin 8.7 g/dL (12.0-16.0); Immature Granulocytes # (auto) 0.05 K/uL (0.00-0.02); Immature Granulocytes % (auto) 0.3 %; Lymphocytes # (auto) 0.82 K/uL (1.2-3.4); Lymphocytes % (auto) 4.8 %; Mean Corpuscular Hemoglobin 26.9 pg (25-34); Mean Corpuscular Hgb Conc 29.8 g/dL (32-36); Mean Corpuscular Volume 90.1 fL (80-100); Mean Platelet Volume 9.1 fL (7.4-10.4); Monocytes # (auto) 1.52 K/uL (0.11-0.59); Monocytes % (auto) 8.9 %; Neutrophils # (auto) 14.65 K/uL (1.4-6.5); Neutrophils % (auto) 85.9 %; Nucleated RBC # (auto) 0.07 K/uL (0-0); Nucleated RBC % (auto) 0.4 %; Platelet Count 225 K/uL (130-400); RDW Coefficient of Variation 20.3 % (11.5-14.5); RDW Standard Deviation 64.4 fL (36.4-46.3); Red Blood Count 3.24 M/uL (4.2-5.4); White Blood Count 17.06 K/uL (4.8-10.8)
[2021-06-12] MEDS: PANTOprazole 40 MG in DEXTROSE 5% 100 ML IV SCH ×4 (05:05→19:56)
[2021-06-12] MEDS ORDERED: EPINEPHrine INJ 1 MG/ML AMP IM PRN (05:17)
[2021-06-12 05:28] LABS: Anisocytosis Present; Hypochromasia Present; Polychromasia 1+
[2021-06-12 05:34] LABS: iSTAT Allen Test Pass; iSTAT Arterial Blood Gas HCO3 25 meg/L (19-24); iSTAT Arterial Blood Gas pCO2 33 mmHg (35-46); iSTAT Arterial Blood Gas pH 7.48 (7.35-7.45); iSTAT Arterial Blood Gas pO2 74 mmHg (80-95); iSTAT Carbon Dioxide 26 mmol/L (24-31); iSTAT FiO2 60 %; iSTAT Site L Brachial
[2021-06-12 05:40] LABS: Calcium 7.6 mg/dl (8.5-10.1); Creatinine Clr Calc Pharmacy 55.3 ml/min; Est GFR (African American) 92.7 ml/min; Magnesium 1.9 mg/dl (1.8-2.4); Potassium 3.6 mmol/L (3.5-5.1); Thyroid Stimulating Hormone 2.17 uIu/ml (0.300-4.500)
[2021-06-12] MEDS ORDERED: SODIUM CHLORIDE 0.9% 250 ML IV PRN (05:49)
[2021-06-12] MEDS ORDERED: MAGNESIUM SULFATE / D5W 1 GM/100 ML BAG IV ONE (06:45)
[2021-06-12] MEDS ORDERED: PERFLUTREN LIPID MICROSPHERE (DEFINITY) IV ONE (07:04)
[2021-06-12] MEDS: POTASSIUM CHLORIDE / WTR 10 MEQ/100 ML PLCT IV SCH ×3 (07:15→09:19)
[2021-06-12 07:28] LABS: Fibrinogen 431 mg/dl (184-400)
--- NOTE | 2021-06-12 07:29 | XRay Report ---
XR chest 1V portable HISTORY: Shortness of breath. SEPSIS COMPARISON: Chest 05/15/2021. FINDINGS: No pneumothorax. Progressive perihilar interstitial and vascular thickening with bibasilar densities and small bilateral pleural effusions. The heart is mildly enlarged. This is also increased in size. There is a left-sided single lead pacemaker/defibrillator. IMPRESSION: Moderate pulmonary edema with small bilateral pleural effusions and nonspecific bibasilar densities. ACT 112: Negative or not required by law. Electronically signed by: Robert Godoy M.D. 06/12/2021 7:28 AM
--- NOTE | 2021-06-12 07:32 | XRay Report ---
KUB HISTORY: Generalized abdominal pain COMPARISON: KUB 10/09/2009. FINDINGS: The bowel gas pattern is unremarkable. There are no dilated loops of small bowel to suggest an obstruction. No renal calculi. No ureteral calculi. No pneumoperitoneum or pneumatosis. Vascular calcifications are noted. Moderate stool within the proximal colon within the right lower quadrant. IMPRESSION: Moderate well-formed stool within the proximal colon. No evidence for bowel obstruction. ACT 112: Negative or not required by law. Electronically signed by: Robert Godoy M.D. 06/12/2021 7:31 AM
--- NOTE | 2021-06-12 07:34 | XRay Report ---
XR chest 1V portable HISTORY: Respiratory failure. post intubation COMPARISON: Chest 06/11/2021. FINDINGS: The endotracheal tube terminates 3 cm from the vaughn. Left-sided single lead pacemaker is again noted. The heart remains enlarged. There are bilateral perihilar airspace opacities and small b ilateral pleural effusions. This is similar to the prior study. No pneumothorax. Left base airspace o pacities also persist. IMPRESSION: 1. The endotracheal tube terminates 3 cm from the vaughn. 2. Bilateral perihilar airspace opacities, cardiomegaly, and small bilateral pleural effusions persis t. This favors pulmonary edema. Left lung airspace opacities also persist. ACT 112: Negative or not required by law. Electronically signed by: Robert Godoy M.D. 06/12/2021 7:32 AM
[2021-06-12] MEDS ORDERED: PIPERACILLIN/TAZOBACTAM 3.375 GM in DEXTROSE 5% 100 ML IV SCH (08:00)
--- NOTE | 2021-06-12 08:10 | History and Physical Report ---
DATE OF ADMISSION: 06/12/2021. CHIEF COMPLAINT: Agitation, non-ST elevated ND, CHF. HISTORY OF PRESENT ILLNESS: This is a 55-year-old female with past medical history significant for COPD, ongoing tobacco abuse, hyperlipidemia, who seems to be smoking 2-3 cigarettes daily, history of diastolic CHF, bilateral carotid artery stenosis, hypertension, history of CAD, Prinzmetal's angina, GERD, vitamin D deficiency, myotonic muscular dystrophy, sacroiliitis, posttraumatic stress disorder, chronic pain syndrome, on pain medications, polyneuropathy and collagen vascular disease, microcytic anemia, history of VT due to coronary artery vasospasm versus acquired QT prolongation with azithromycin exposure, status post single chamber AICD, history of nondependent cocaine abuse in remission, history of nondependent cannabis abuse, history of CAD status post stent, anxiety and depression, who was brought in because of some confusion and agitation at home. Seems she had chest pain for the last few weeks and her found her in acute distress with pain all over the chest, body, and the legs and increasingly agitated and she was brought in here in the ER. Because of respiratory distress and agitation, she was intubated in ER and the lab work showed pulmonary edema on the chest x-ray and she was given a dose of Lasix and troponin was elevated at 6.5, BNP was 35,000. Cardiology was in the ER and the bedside echo showed new severe LV dysfunction with LAD distribution of the wall motion abnormality. The patient was taken for emergency cardiac catheterization and had a 90% lesion in the proximal LAD and it was stented. There was a RCA lesion also, but these were collaterals. The patient was transferred to the ICU. Currently, still intubated and sedated, on propofol. The patient was recently in the hospital. She was admitted on 05/16/2021 and discharged on 05/19/2021 She signed out AMA at that time. At that time, she came here because of symptomatic anemia, hemoglobin 5.4. She received 4 units of PRBC. Her hemoglobin improved from 5.4 to 11.4. There was a plan for outpatient EGD and colonoscopy and she was on Protonix 40 mg p.o. b.i.d. At that time also, her troponin was 1.45, but trended down to 1.3 and echo showed no abnormalities at that time. At that time, Plavix was discontinued by cardiology as stent was placed many years ago and having GI bleed. Currently, the patient is hemodynamically stable. ALLERGIES: BEE VENOM, LATEX, SCOPOLAMINE, AZITHROMYCIN, DEXBROMPHENIRAMINE, LEVAQUIN, MEPERIDINE, METHADONE, DIPHENHYDRAMINE, FLU VACCINE ,COLD. PAST MEDICAL HISTORY: As mentioned above. PAST SURGICAL HISTORY: Biopsy of the breast, left heart catheterization, hysteroscopy, endometrial ablation, cardiac defibrillator, knee arthroscopy, ligation of the oviducts, cataracts, left carotid endarterectomy. FAMILY HISTORY: Significant for sister has asthma; son has asthma; mother has uterine cancer, heart disorder; father has emphysema and MS. 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 Smokes 3-4 cigarettes every day for last many years. No alcohol use. Smokes marijuana. REVIEW OF SYSTEMS: As per HPI. Rest of the review of systems is not obtainable at this time as the patient is intubated and sedated. MEDICATIONS: The patient is on Tylenol 325 mg p.o. q. 6 hours p.r.n., albuterol 2 puffs inhalation q. 4 hours p.r.n., aspirin 81 mg p.o. daily, aspirin 650 mg p.o. b.i.d. p.r.n., atorvastatin 80 mg p.o. at bedtime, diltiazem 480 mg p.o. daily, EpiPen p.r.n., ferrous sulfate 325 mg p.o. b.i.d., Flonase 2 sprays intranasal daily, Lasix 20 mg p.o. daily, gabapentin 900 mg p.o. t.i.d., guaifenesin 600 mg p.o. q. 12 hours p.r.n., isosorbide dinitrate 5 mg p.o. p.r.n., isosorbide mononitrate 120 mg p.o. b.i.d., Keppra 1000 mg p.o. b.i.d., lisinopril 10 mg p.o. daily, loratadine 10 mg p.o. daily, MS Contin 30 mg p.o. b.i.d., Zofran 4 mg p.o. q. 8 hours p.r.n., oxycodone 5 mg p.o. q. 6 hours p.r.n., Protonix 40 mg p.o. b.i.d., phenytoin extended release 100 mg p.o. t.i.d., potassium chloride 40 mEq p.o. daily, prazosin 1 mg p.o. b.i.d., primidone 50 mg p.o. t.i.d.,protein 500 mg p.o. daily, tizanidine 4 mg p.o. q. 8 hours p.r.n., trazodone 100 mg p.o. at bedtime. PHYSICAL EXAMINATION: GENERAL: The patient is currently intubated and sedated. VITAL SIGNS: Temperature 35.5, pulse 74, respiratory rate 28, blood pressure 112/73, oxygen 100% on mechanical vent. HEENT: Pupils diminished in sight, but reactive to light. NECK: No JVD seen. No neck masses seen. CARDIOVASCULAR: S1 and S2 heard. Regular rate and rhythm. No murmur, no gallop. RESPIRATORY SYSTEM: Normal AP diameter. No accessory muscle use. Mild bibasilar crackles. No wheezing. ABDOMEN: Soft, bowel sounds present, nontender, no distention. CENTRAL NERVOUS SYSTEM: s/p intubated and sedated. EXTREMITIES: No edema seen. Left groin catheterization site, no obvious bleeding seen and also right wrist catheterization site is okay. LABORATORY DATA: WBC 17, hemoglobin 8.7, hematocrit 29.2, platelets 225. PT 11.5, INR 1.1, APTT 28.2. Point of care pH 7.2, pCO2 of 43, pO2 of 76, bicarbonate 17, oxygen 91%. Sodium 137, potassium 4.2, chloride 103, bicarbonate 12, BUN 22, creatinine 0.9, serum glucose 160. Lactate 15, calcium 8.8, magnesium 2.5, total bilirubin 0.3, AST 71, ALT 48, alkaline phosphatase 191, troponin was 6.8. BNP greater than 35,000. Procalcitonin less than 0.05. Urinalysis, +1 protein, +3 glucose, +1 bacteria. Urine toxicology positive for opiate screen Positive for marijuana. Alcohol level less than 3. SARS-CoV-2 PCR negative. IMAGING DATA: Chest x-ray, edema kind of picture and also possible left pleural effusion. EKG: As per records, normal sinus rhythm at a rate of 96. T-wave inversions in V5 to V6. ASSESSMENT AND PLAN: This is a 55-year-old female who presents with agitation, chest pain, pain all over and found to be with non-ST elevated myocardial infarction and congestive heart failure. 1. Respiratory Distress: The patient is s/p intubation and mechanical ventilation, possibly secondary to congestive heart failure, received Lasix in ER.. Follow the echocardiogram, and cardiology consult. Closely monitor in the ICU. Ventilator management as per critical care. Currently on bicarb drip. will monitor for volume overload. 2. Non-ST elevated myocardial infarction: Status post cardiac catheterization and stent to the proximal LAD lesion, post-cath care as per cardiology. Continue her aspirin and Plavix which was restarted, which was held at last admission because of GI bleed, and high-dose statin. Follow echocardiogram. Trend troponins. 3. Anemia: Hemoglobin was 5.4 last admission, required 4 units of PRBCs. Currently hemoglobin is 8.7. ER started on Protonix drip today which will continue. There is plan to do EGD and colonoscopy as outpatient. Consider GI consultation while the patient is in the hospital when she is more stable. 4. Possible urinary tract infection, possible pneumonia. Was Started on Zosyn which will be continued. Follow the cultures. 5. Elevated lactic acid and acidosis: Most likely from the acute coronary syndrome and resp distress. Follow the repeat lactic acids. Repeat lactic acid is pending. Fluids as per critical care.On Bicarb drip. Antibiotics as above. 6. The patient is on chronic pain medication. The patient is on high dose of pain medication at home, which will be held. Will place on IV Dilaudid p.r.n. as the patient is currently intubated and sedated and getting propofol. 7. History of coronary artery disease. History of LAD stenting in the past as well as vasospastic angina. Continue her home medication of diltiazem, isosorbide mononitrate, aspirin, Plavix, and statins. 8. History of VT arrest due to coronary artery vasospasm versus acquired QT prolongation possible of azithromycin exposure, status post single chamber AICD. 9. History of peripheral vascular disease, superficial femoral artery occlusion, left subclavian artery stenosis. on aspirin and Plavix. 10. History of myotonic muscular dystrophy. PT, OT when stable. 11. History of pulmonary embolism. Coumadin was discontinued due to GI bleed in 2019. 12. History of left carotid endarterectomy in 2015. 13. History of chronic obstructive pulmonary disease: Continue her home inhalers. 14. History of seizures: On Keppra and phenytoin, which will be changed to IV.Dose adjustment of keppra per Pharmacy for renal function. 15. History of diastolic congestive heart failure: Received IV lasix. Currently on gentle fluids. Will monitor.. Continue use of lisinopril and nitrate. 16. History of hypertension: Continue her home medication of diltiazem, lisinopril, diuretics, and prazosin. Will monitor the blood pressure. 17. History of deep venous thrombosis prophylaxis: Will place on sequential compression devices for now because of possible gastrointestinal bleed. DISPOSITION: Closely monitor in the ICU. Level 1 full code. Job ID: [id number] [id number]
[2021-06-12] MEDS: FERROUS SULFATE 325 MG TAB PO SCH ×2 (08:31→17:08)
[2021-06-12] MEDS: FLUTICASONE PROPIONATE NA SPR 16 GM BTL SCH (08:31)
[2021-06-12] MEDS: GABAPENTIN 300 MG CAP PO SCH ×3 (08:32→21:07)
[2021-06-12] MEDS: GABAPENTIN 600 MG TAB PO SCH ×3 (08:32→21:08)
[2021-06-12] MEDS: POTASSIUM CHLORIDE CRTAB 20 MEQ TABCR PO SCH (08:37)
[2021-06-12] MEDS: ASPIRIN 81 MG ECTAB PO SCH (08:37)
[2021-06-12] MEDS: FUROSEMIDE 40 MG in SYRINGE 0 ML IV SCH ×2 (08:52→17:20)
[2021-06-12] MEDS: LORATADINE 10 MG TAB PO SCH (08:53)
[2021-06-12] MEDS: PHENYTOIN 100 MG in SYRINGE 0 ML IV SCH ×3 (08:53→21:06)
[2021-06-12] MEDS: lisinopril 10 MG TAB PO SCH (08:53)
[2021-06-12] MEDS: PRIMIDONE 50 MG TAB PO SCH ×3 (08:55→21:08)
[2021-06-12] MEDS: SODIUM CHLORIDE 0.9% 10ML FLUSH IV SCH ×3 (08:56→21:13)
[2021-06-12] MEDS: fentaNYL citrate 100 MCG/2 ML VIAL IV PRN ×2 (08:57→21:04)
[2021-06-12] MEDS: PRAZOSIN HCL 1 MG CAP PO SCH (08:58)
[2021-06-12] MEDS ORDERED: CLOPIDOGREL BISULFATE 75 MG TAB PO SCH (09:00)
[2021-06-12] MEDS ORDERED: dilTIAZem HCL 240 MG CAPCR PO SCH (09:00)
[2021-06-12] MEDS ORDERED: ATORVASTATIN 40 MG TAB PO SCH (09:00)
[2021-06-12] MEDS ORDERED: ISOSORBIDE MONO EXTENDED REL 60 MG TABCR PO SCH (09:00)
[2021-06-12] MEDS ORDERED: ASPIRIN 81 MG ECTAB PO SCH (09:00)
[2021-06-12] MEDS: levETIRAcetam 750 MG in 0.9 % SODIUM CHLORIDE 100 ML IV SCH ×2 (09:19→21:05)
--- NOTE | 2021-06-12 09:23 | Gastrointestinal Consultation ---
Date of Consultation June 12, 2021 Assessment & Plan (1) Non-ST elevation [place] (NSTEMI): 55 yeThank you for allowing us to participate in the care of this patient. Please call with any acute changes, questions or concerns. Please see addendum below with additional recommendation from my supervising physician. ar old critically ill female admitted w/ acute heart failure, ACS s/p LAD stenting last evening GI asked to evaluate for anemia, dark stools. Will discuss w/ attending Please continue conservative measures NPO IV PPI bolus and drip Trend HGB Transfuse RBCS per primary team Monitor and document stools Supervising Physician Co-Signing Physician Notes I have seen and examined the patient with KIRSTIE Hui whose note reflects our findings and plan. Patient admitted with ACS and CHF requiring emergent cath and stening. Remains intubated and sedated. noted to have melena. Was hospitalized with hgb of 5 several weeks ago. Did not come for outpatient scopes. Patient got blood. H/H stable. On PPI gtt. given her cardiac events, would continue with conservative mgt with continued PPI gtt and close monitoring of H/H and platelets. Discussed with primary service History of Present Illness Reason for Consultation: [place] Requesting Physician: anemia Attending Physician: Reji Brown MD History of Present Illness 55 year old female w/ history of COPD, tobacco use, diastolic CHF, HTN, CAD, GERD, status post ICD, substance abuse admitted last evening w/ chest pain --> High risk NSTEMI with Acute heart failure and new severe LV dysfunction taken to chemical laboratory tester last evening for 90% occlusion proximal LAD, stented, in the ICU intubated and sedated. GI asked to evaluate for anemia, melena. BM this AM dark black. 1 unit RBC running. HGB stable from admission. BUN 22. EGD 2009: Normal esophagus. - Z-line regular,. - Gastric mucosal abnormality characterized by erythema. This was biopsied. - Normal examined duodenum. Colonoscopy 2009: - The examined portion of the ileum was normal. - The entire examined colon is normal. Biopsied Allergies Allergy/AdvReac Type Severity Reaction Status Date / Time bee venom protein (honey bee) Allergy Severe Anaphylaxis Verified 06/12/21 00:03 -HIVES latex Allergy Intermediate HIVES, Verified 06/12/21 00:03 BLISTERS scopolamine Allergy Unknown Unknown Verified 06/12/21 00:03 azithromycin [From Zithromax] AdvReac Severe STOMACH Verified 06/12/21 00:03 ULCERS, BLEEDING, ARRYTHMIAS dexbrompheniramine AdvReac Severe CARDIAC Verified 06/12/21 00:03 SPASMS--ALL ANTIHISTAMINES pseudoephedrine AdvReac Severe CARDIAC Verified 06/12/21 00:03 SPASMS--ALL ANTIHISTAMINES levofloxacin AdvReac Intermediate QTC Verified 06/12/21 00:03 PROLONGATION H/O VF ARREST meperidine AdvReac Intermediate NAUSEA, Verified 06/12/21 00:03 VOMITING methadone AdvReac Intermediate NAUSEA, Verified 06/12/21 00:03 VOMITING, RASH diphenhydramine AdvReac Mild "ARTERITAL Verified 06/12/21 00:03 SPASMS" FLU VIRUS VACCINE Allergy Severe EDEMA Uncoded 06/12/21 00:03 AIRWAY COLD AdvReac Unknown VASCULAR Uncoded 06/12/21 00:03 COLLAPSE SYNDROME Home Medications Medication Instructions Recorded Confirmed Type albuterol sulfate 90 mcg/actuation 2 puff INHALATION Q4 PRN 05/15/21 06/12/21 History aerosol inhaler aspirin 81 mg tablet,delayed 81 mg PO DAILY 05/15/21 06/12/21 History release atorvastatin 80 mg tablet 80 mg PO HS 05/15/21 06/12/21 History diltiazem HCl 240 mg capsule,24 480 mg PO DAILY 05/15/21 06/12/21 History hr,extended release epinephrine 0.3 mg/0.3 mL 0.3 mg IM UD PRN 05/15/21 06/12/21 History injection, auto-injector (EpiPen) fluticasone propionate 50 2 spray INTRANASAL DAILY 05/15/21 06/12/21 History mcg/actuation nasal spray,suspension furosemide 20 mg tablet 20 mg PO DAILY 05/15/21 06/12/21 History gabapentin 600 mg tablet 600 mg PO TID 05/15/21 06/12/21 History isosorbide dinitrate 5 mg tablet 5 mg PO DIRECTED PRN 05/15/21 06/12/21 History isosorbide mononitrate 120 mg 120 mg PO AMPM 05/15/21 06/12/21 History tablet,extended release 24 hr levetiracetam 1,000 mg tablet 1,000 mg PO BID 05/15/21 06/12/21 History lisinopril 5 mg tablet 10 mg PO DAILY 05/15/21 06/12/21 History loratadine 10 mg tablet 10 mg PO DAILY 05/15/21 06/12/21 History morphine 30 mg tablet,extended 30 mg PO BID 05/15/21 06/12/21 History release oxycodone 5 mg tablet 5 mg PO Q6 PRN 05/15/21 06/12/21 History phenytoin sodium extended 100 mg 100 mg PO TID 05/15/21 06/12/21 History capsule potassium chloride 20 mEq 40 meq PO DAILY 05/15/21 06/12/21 History tablet,extended release(part/cryst) prazosin 1 mg capsule 1 mg PO BID 05/15/21 06/12/21 History protein 500 mg chewable tablet 500 mg PO DAILY 05/15/21 06/12/21 History tizanidine 4 mg tablet 4 mg PO Q8 PRN 05/15/21 06/12/21 History trazodone 50 mg tablet 100 mg PO HS 05/15/21 06/12/21 History ferrous sulfate 325 mg (65 mg 325 mg PO BIDM #60 tab 05/18/21 06/12/21 Rx iron) tablet,delayed release pantoprazole 40 mg tablet,delayed 40 mg PO BID #60 tab 05/18/21 06/12/21 Rx release acetaminophen 325 mg tablet 325 mg PO Q6H PRN 06/12/21 06/12/21 History (Tylenol) aspirin 325 mg tablet,delayed 650 mg PO BID PRN 06/12/21 06/12/21 History release gabapentin 300 mg capsule 300 mg PO TID 06/12/21 06/12/21 History guaifenesin 600 mg tablet, 600 mg PO Q12H PRN 06/12/21 06/12/21 History extended release 12 hr ondansetron HCl 4 mg tablet 4 mg PO Q8H PRN 06/12/21 06/12/21 History (Zofran) primidone 50 mg tablet 50 mg PO TID 06/12/21 06/12/21 History Patient History Social History Smoking Status: Current every day smoker Tobacco Type: Cigarettes Second Hand Exposure: No; Do You Dip or Chew Tobacco: No; Tobacco Cessation Education Requested by Patient: No Hx Alcohol Use: No Hx Substance Use: Yes Last Used Substance: Unknown Preferred Language: Kyrgyz Communication Ability: Unable Communication Ability Comment: Intubated Experience Planning Strategist Required: No Beliefs That Will Affect Care: None marital status: Current Living Situation: Family Other Information That Helps Us Care for You: No Feels Safe at Home: Yes Safety Concerns: Feels Safe At This Time Assistive Devices: Walker and Wheelchair Review of Systems Review of Systems: Unobtainable due to endotracheal tube Physical Exam Constitutional: WD/WN, vitals as above Neck: trachea midline, no thyromegaly Respiratory: normal respiratory effort, lungs clear to auscultation Cardiovascular: Rate/Rhythm: regular rate Gastrointestinal (Abdomen): normal bowel sounds, soft, nontender, no hepatosplenomegaly Skin: no rashes, warm and dry Results & Data ([facility]) Vital Signs (Past 12 Hours) Vital Signs Temp Pulse Pulse Resp BP BP Pulse Ox 06/12/21 08:45 37.1 C 91 H 22 128/81 95 06/12/21 08:16 36.6 C 91 H 20 108/71 100 06/12/21 07:23 86 30 H 100 06/12/21 07:00 36.7 C 81 30 H 120/79 100 06/12/21 06:00 36.0 C L 79 26 H 100 06/12/21 05:27 24 06/12/21 05:00 36.0 C L 70 28 H 94/62 L 96 06/12/21 04:45 35.7 C L 75 28 H 91/59 L 95 06/12/21 04:35 35.5 C L 74 28 H 112/73 100 06/12/21 04:30 35.5 C L 72 28 H 105/67 97 06/12/21 04:21 35.5 C L 72 28 H 108/70 100 06/12/21 04:07 74 28 H 100 06/12/21 03:50 84 30 H 93 06/12/21 01:11 29 H 06/12/21 01:10 92 H 132/74 93 06/12/21 01:00 93 H 129/75 92 06/12/21 00:50 92 H 133/77 94 06/12/21 00:46 92 H 26 H 96 06/12/21 00:44 100 06/12/21 00:40 91 H 98 06/12/21 00:30 90 100 06/12/21 00:28 90 26 H 98 06/12/21 00:20 91 H 06/12/21 00:10 91 H 90 26 H 91 06/12/21 00:00 88 83 L 06/11/21 23:50 93 H 06/11/21 23:45 93 H 06/11/21 23:30 96 H 144/108 H 89 L 06/11/21 23:26 95 H 85 L Laboratory Results 06/12/21 06/12/21 06/12/21 Range/Units 06:07 05:14 04:36 WBC (4.8-10.8) K/uL RBC (4.2-5.4) M/uL Hgb (12.0-16.0) g/dL POC Hgb (12.0-16.0) g/dl Hct (37-47) % POC Hct (37-47) % MCV (80-100) fL MCH (25-34) pg MCHC (32-36) g/dL RDW Std Deviation (36.4-46.3) fL RDW Coeff of Lola (11.5-14.5) % Plt Count (130-400) K/uL MPV (7.4-10.4) fL Immature Gran % (Auto) % Neut % (Auto) % Lymph % (Auto) % Taylor % (Auto) % Eos % (Auto) % Baso % (Auto) % Neut # (Auto) (1.4-6.5) K/uL Lymph # (Auto) (1.2-3.4) K/uL Taylor # (Auto) (0.11-0.59) K/uL Eos # (Auto) (0-0.5) K/uL Baso # (Auto) (0-0.2) K/uL Immature Gran # (Auto) (0.00-0.02) K/uL Absolute Nucleated RBC (0-0) K/uL Nucleated RBC % (auto) % Neutrophils % (Manual) % Lymphocytes % (Manual) % Monocytes % (Manual) % Eosinophils % (Manual) % Neutrophils # (Manual) (1.4-6.5) K/uL Total Absolute Neuts (1.4-6.5) K/uL Lymphocytes # (Manual) (1.2-3.4) K/uL Total Abs Lymphocytes (1.2-3.4) K/uL Monocytes # (Manual) (0.11-0.59) K/uL Eosinophils # (Manual) (0-0.5) K/uL Polychromasia Hypochromasia Anisocytosis Echinocytes PT (9.0-12.0) Seconds INR (0.9-1.1) APTT (21.0-31.0) Seconds PTT Ratio Activ Coag Time Kaolin (94-140) SECONDS Fibrinogen 431 H (184-400) mg/dl Sample Site L Brachial POC pH 7.48 H (7.35-7.45) POC pCO2 33 L (35-46) mmHg POC pO2 74 L (80-95) mmHg POC HCO3 25 H (19-24) cornelio/L POC Total CO2 26 (24-31) mmol/L POC Base Excess 1.0 (-9-1.8) cornelio/L POC ABG O2 Sat 96.0 H (90-95) % Navdeep Test Pass VBG pH (7.36-7.41) VBG pCO2 (38-50) mmHg VBG pO2 mmHg VBG HCO3 mmol/L VBG O2 Saturation % VBG Base Excess mEq/L O2 Delivery Device Ventilator POC O2 Rate 28 POC FiO2 60 % Tidal Volume 400 PEEP 8 POC Sodium (135-144) mmol/L Sodium 137 (136-145) mmol/L POC Potassium (3.3-5.0) mmol/L Potassium 3.6 D (3.5-5.1) mmol/L Chloride 100 (98-107) mmol/L Carbon Dioxide 27 (21-32) mmol/L Anion Gap 10.0 (3-11) BUN 22 H (7-18) mg/dl Creatinine 0.82 (0.6-1.2) mg/dl Est Cr Clr Drug Dosing 55.3 Est GFR ( Amer) 92.7 ml/min Est GFR (Non-Af Amer) 80.0 ml/min BUN/Creatinine Ratio 27.0 H (10-20) Glucose 251 H (70-99) mg/dl Lactate (0.4-2.0) mmol/L Calcium 7.6 L (8.5-10.1) mg/dl Phosphorus 3.0 (2.5-4.9) mg/dl Magnesium 1.9 (1.8-2.4) mg/dl Total Bilirubin (0.2-1) mg/dl AST (15-37) U/L ALT (12-78) U/L Alkaline Phosphatase (45-117) U/L Troponin I (0-0.045) ng/ml NT-Pro-B Natriuret Pep (0-900) pg/ml Total Protein (6.4-8.2) gm/dl Albumin (3.4-5.0) gm/dl Globulin (2.5-4.0) gm/dl Albumin/Globulin Ratio (0.9-2) Procalcitonin (0-0.5) ng/ml TSH 2.170 (0.300-4.500) uIu/ml Urine Color Urine Appearance (Clear) Urine pH (4.5-7.5) Ur Specific [place] (1.000-1.030) Urine Protein (Negative) Urine Glucose (UA) (Negative) Urine Ketones (Negative) Urine Blood (Negative) Urine Nitrite (Negative) Urine Bilirubin (Negative) Urine Urobilinogen (Negative) Ur Leukocyte Esterase (Negative) Urine WBC (Auto) (0-5) /hpf Urine RBC (Auto) (0-4) /hpf U Hyaline Cast (Auto) (0-5) /lpf U Epithel Cells (Auto) (0-5) /lpf Urine Bacteria (Auto) (Negative) Ur Renal Epithelial Cell Granular Casts (0) /lpf Nasal Screen MRSA (PCR) (Negative) Urine Butalbital Urine Opiates Screen (Neg) U Codeine Confrm GC/MS Ur Morphine (GC/MS) Ur Hydrocodone (GC/MS) Ur Norhydrocodone Ur Noroxycodone Urine Oxycodone (GC/MS) U Oxymorphone GC/MS Ur Methadone, Qual (Neg) Ur Hydromorphone (GC/MS) Urine Barbiturates (Neg) Phenytoin (10-20) mcg/ml Ur Phencyclidine (PCP) (Neg) U Amphetamin/Meth Scrn (Neg) MDMA (Ecstasy) Screen (Neg) Urine Amobarbital Urine Pentobarbital Urine Phenobarbital Urine Secobarbital U Benzodiazepines Scrn (Neg) Ur Cocaine Metabolite (Neg) U Marijuana (THC) Screen (Neg) U Marijuana THC Carboxy Drug Screen Comment Ethyl Alcohol mg/dL (0-3) mg/dl COVID-19 Eval Order SARS-CoV-2 (PCR) (Negative) Blood Type Antibody Screen Crossmatch 06/12/21 06/12/21 06/12/21 Range/Units 04:36 04:36 03:45 WBC 17.06 H (4.8-10.8) K/uL RBC 3.24 L (4.2-5.4) M/uL Hgb 8.7 L (12.0-16.0) g/dL POC Hgb (12.0-16.0) g/dl Hct 29.2 L (37-47) % POC Hct (37-47) % MCV 90.1 (80-100) fL MCH 26.9 (25-34) pg MCHC 29.8 L (32-36) g/dL RDW Std Deviation 64.4 H (36.4-46.3) fL RDW Coeff of Lola 20.3 H (11.5-14.5) % Plt Count 225 (130-400) K/uL MPV 9.1 (7.4-10.4) fL Immature Gran % (Auto) 0.3 % Neut % (Auto) 85.9 % Lymph % (Auto) 4.8 % Taylor % (Auto) 8.9 % Eos % (Auto) 0.0 % Baso % (Auto) 0.1 % Neut # (Auto) 14.65 H (1.4-6.5) K/uL Lymph # (Auto) 0.82 L (1.2-3.4) K/uL Taylor # (Auto) 1.52 H (0.11-0.59) K/uL Eos # (Auto) 0.00 (0-0.5) K/uL Baso # (Auto) 0.02 (0-0.2) K/uL Immature Gran # (Auto) 0.05 H (0.00-0.02) K/uL Absolute Nucleated RBC 0.07 H (0-0) K/uL Nucleated RBC % (auto) 0.4 % Neutrophils % (Manual) % Lymphocytes % (Manual) % Monocytes % (Manual) % Eosinophils % (Manual) % Neutrophils # (Manual) (1.4-6.5) K/uL Total Absolute Neuts (1.4-6.5) K/uL Lymphocytes # (Manual) (1.2-3.4) K/uL Total Abs Lymphocytes (1.2-3.4) K/uL Monocytes # (Manual) (0.11-0.59) K/uL Eosinophils # (Manual) (0-0.5) K/uL Polychromasia 1+ Hypochromasia Present Anisocytosis Present Echinocytes PT (9.0-12.0) Seconds INR (0.9-1.1) APTT (21.0-31.0) Seconds PTT Ratio Activ Coag Time Kaolin (94-140) SECONDS Fibrinogen (184-400) mg/dl Sample Site POC pH (7.35-7.45) POC pCO2 (35-46) mmHg POC pO2 (80-95) mmHg POC HCO3 (19-24) cornelio/L POC Total CO2 (24-31) mmol/L POC Base Excess (-9-1.8) cornelio/L POC ABG O2 Sat (90-95) % Navdeep Test VBG pH (7.36-7.41) VBG pCO2 (38-50) mmHg VBG pO2 mmHg VBG HCO3 mmol/L VBG O2 Saturation % VBG Base Excess mEq/L O2 Delivery Device POC O2 Rate POC FiO2 % Tidal Volume PEEP POC Sodium (135-144) mmol/L Sodium (136-145) mmol/L POC Potassium (3.3-5.0) mmol/L Potassium (3.5-5.1) mmol/L Chloride (98-107) mmol/L Carbon Dioxide (21-32) mmol/L Anion Gap (3-11) BUN (7-18) mg/dl Creatinine (0.6-1.2) mg/dl Est Cr Clr Drug Dosing Est GFR ( Amer) ml/min Est GFR (Non-Af Amer) ml/min BUN/Creatinine Ratio (10-20) Glucose (70-99) mg/dl Lactate 5.8 H* (0.4-2.0) mmol/L Calcium (8.5-10.1) mg/dl Phosphorus (2.5-4.9) mg/dl Magnesium (1.8-2.4) mg/dl Total Bilirubin (0.2-1) mg/dl AST (15-37) U/L ALT (12-78) U/L Alkaline Phosphatase (45-117) U/L Troponin I (0-0.045) ng/ml NT-Pro-B Natriuret Pep (0-900) pg/ml Total Protein (6.4-8.2) gm/dl Albumin (3.4-5.0) gm/dl Globulin (2.5-4.0) gm/dl Albumin/Globulin Ratio (0.9-2) Procalcitonin (0-0.5) ng/ml TSH (0.300-4.500) uIu/ml Urine Color Urine Appearance (Clear) Urine pH (4.5-7.5) Ur Specific [place] (1.000-1.030) Urine Protein (Negative) Urine Glucose (UA) (Negative) Urine Ketones (Negative) Urine Blood (Negative) Urine Nitrite (Negative) Urine Bilirubin (Negative) Urine Urobilinogen (Negative) Ur Leukocyte Esterase (Negative) Urine WBC (Auto) (0-5) /hpf Urine RBC (Auto) (0-4) /hpf U Hyaline Cast (Auto) (0-5) /lpf U Epithel Cells (Auto) (0-5) /lpf Urine Bacteria (Auto) (Negative) Ur Renal Epithelial Cell Granular Casts (0) /lpf Nasal Screen MRSA (PCR) Negative (Negative) Urine Butalbital Urine Opiates Screen (Neg) U Codeine Confrm GC/MS Ur Morphine (GC/MS) Ur Hydrocodone (GC/MS) Ur Norhydrocodone Ur Noroxycodone Urine Oxycodone (GC/MS) U Oxymorphone GC/MS Ur Methadone, Qual (Neg) Ur Hydromorphone (GC/MS) Urine Barbiturates (Neg) Phenytoin (10-20) mcg/ml Ur Phencyclidine (PCP) (Neg) U Amphetamin/Meth Scrn (Neg) MDMA (Ecstasy) Screen (Neg) Urine Amobarbital Urine Pentobarbital Urine Phenobarbital Urine Secobarbital U Benzodiazepines Scrn (Neg) Ur Cocaine Metabolite (Neg) U Marijuana (THC) Screen (Neg) U Marijuana THC Carboxy Drug Screen Comment Ethyl Alcohol mg/dL (0-3) mg/dl COVID-19 Eval Order SARS-CoV-2 (PCR) (Negative) Blood Type Antibody Screen Crossmatch 06/12/21 06/12/21 06/12/21 Range/Units 02:40 02:38 01:07 WBC (4.8-10.8) K/uL RBC (4.2-5.4) M/uL Hgb (12.0-16.0) g/dL POC Hgb (12.0-16.0) g/dl Hct (37-47) % POC Hct (37-47) % MCV (80-100) fL MCH (25-34) pg MCHC (32-36) g/dL RDW Std Deviation (36.4-46.3) fL RDW Coeff of Lola (11.5-14.5) % Plt Count (130-400) K/uL MPV (7.4-10.4) fL Immature Gran % (Auto) % Neut % (Auto) % Lymph % (Auto) % Taylor % (Auto) % Eos % (Auto) % Baso % (Auto) % Neut # (Auto) (1.4-6.5) K/uL Lymph # (Auto) (1.2-3.4) K/uL Taylor # (Auto) (0.11-0.59) K/uL Eos # (Auto) (0-0.5) K/uL Baso # (Auto) (0-0.2) K/uL Immature Gran # (Auto) (0.00-0.02) K/uL Absolute Nucleated RBC (0-0) K/uL Nucleated RBC % (auto) % Neutrophils % (Manual) % Lymphocytes % (Manual) % Monocytes % (Manual) % Eosinophils % (Manual) % Neutrophils # (Manual) (1.4-6.5) K/uL Total Absolute Neuts (1.4-6.5) K/uL Lymphocytes # (Manual) (1.2-3.4) K/uL Total Abs Lymphocytes (1.2-3.4) K/uL Monocytes # (Manual) (0.11-0.59) K/uL Eosinophils # (Manual) (0-0.5) K/uL Polychromasia Hypochromasia Anisocytosis Echinocytes PT (9.0-12.0) Seconds INR (0.9-1.1) APTT (21.0-31.0) Seconds PTT Ratio Activ Coag Time Kaolin 230 H (94-140) SECONDS Fibrinogen (184-400) mg/dl Sample Site POC pH 7.20 L (7.35-7.45) POC pCO2 43 (35-46) mmHg POC pO2 76 L (80-95) mmHg POC HCO3 17 L (19-24) corneloi/L POC Total CO2 18 L (24-31) mmol/L POC Base Excess -11.0 L (-9-1.8) cornelio/L POC ABG O2 Sat 91.0 (90-95) % Navdeep Test VBG pH (7.36-7.41) VBG pCO2 (38-50) mmHg VBG pO2 mmHg VBG HCO3 mmol/L VBG O2 Saturation % VBG Base Excess mEq/L O2 Delivery Device POC O2 Rate POC FiO2 % Tidal Volume PEEP POC Sodium (135-144) mmol/L Sodium (136-145) mmol/L POC Potassium (3.3-5.0) mmol/L Potassium (3.5-5.1) mmol/L Chloride (98-107) mmol/L Carbon Dioxide (21-32) mmol/L Anion Gap (3-11) BUN (7-18) mg/dl Creatinine (0.6-1.2) mg/dl Est Cr Clr Drug Dosing Est GFR ( Amer) ml/min Est GFR (Non-Af Amer) ml/min BUN/Creatinine Ratio (10-20) Glucose (70-99) mg/dl Lactate (0.4-2.0) mmol/L Calcium (8.5-10.1) mg/dl Phosphorus (2.5-4.9) mg/dl Magnesium (1.8-2.4) mg/dl Total Bilirubin (0.2-1) mg/dl AST (15-37) U/L ALT (12-78) U/L Alkaline Phosphatase (45-117) U/L Troponin I (0-0.045) ng/ml NT-Pro-B Natriuret Pep (0-900) pg/ml Total Protein (6.4-8.2) gm/dl Albumin (3.4-5.0) gm/dl Globulin (2.5-4.0) gm/dl Albumin/Globulin Ratio (0.9-2) Procalcitonin (0-0.5) ng/ml TSH (0.300-4.500) uIu/ml Urine Color Urine Appearance (Clear) Urine pH (4.5-7.5) Ur Specific [place] (1.000-1.030) Urine Protein (Negative) Urine Glucose (UA) (Negative) Urine Ketones (Negative) Urine Blood (Negative) Urine Nitrite (Negative) Urine Bilirubin (Negative) Urine Urobilinogen (Negative) Ur Leukocyte Esterase (Negative) Urine WBC (Auto) (0-5) /hpf Urine RBC (Auto) (0-4) /hpf U Hyaline Cast (Auto) (0-5) /lpf U Epithel Cells (Auto) (0-5) /lpf Urine Bacteria (Auto) (Negative) Ur Renal Epithelial Cell Granular Casts (0) /lpf Nasal Screen MRSA (PCR) (Negative) Urine Butalbital Pending Urine Opiates Screen (Neg) U Codeine Confrm GC/MS Pending Ur Morphine (GC/MS) Pending Ur Hydrocodone (GC/MS) Pending Ur Norhydrocodone Pending Ur Noroxycodone Pending Urine Oxycodone (GC/MS) Pending U Oxymorphone GC/MS Pending Ur Methadone, Qual (Neg) Ur Hydromorphone (GC/MS) Pending Urine Barbiturates (Neg) Phenytoin (10-20) mcg/ml Ur Phencyclidine (PCP) (Neg) U Amphetamin/Meth Scrn (Neg) MDMA (Ecstasy) Screen (Neg) Urine Amobarbital Pending Urine Pentobarbital Pending Urine Phenobarbital Pending Urine Secobarbital Pending U Benzodiazepines Scrn (Neg) Ur Cocaine Metabolite (Neg) U Marijuana (THC) Screen (Neg) U Marijuana THC Carboxy Pending Drug Screen Comment Pending Ethyl Alcohol mg/dL (0-3) mg/dl COVID-19 Eval Order SARS-CoV-2 (PCR) (Negative) Blood Type Antibody Screen Crossmatch 06/12/21 06/12/21 06/12/21 Range/Units 01:07 01:07 01:07 WBC (4.8-10.8) K/uL RBC (4.2-5.4) M/uL Hgb (12.0-16.0) g/dL POC Hgb 10.5 L (12.0-16.0) g/dl Hct (37-47) % POC Hct 31 L (37-47) % MCV (80-100) fL MCH (25-34) pg MCHC (32-36) g/dL RDW Std Deviation (36.4-46.3) fL RDW Coeff of Lola (11.5-14.5) % Plt Count (130-400) K/uL MPV (7.4-10.4) fL Immature Gran % (Auto) % Neut % (Auto) % Lymph % (Auto) % Taylor % (Auto) % Eos % (Auto) % Baso % (Auto) % Neut # (Auto) (1.4-6.5) K/uL Lymph # (Auto) (1.2-3.4) K/uL Taylor # (Auto) (0.11-0.59) K/uL Eos # (Auto) (0-0.5) K/uL Baso # (Auto) (0-0.2) K/uL Immature Gran # (Auto) (0.00-0.02) K/uL Absolute Nucleated RBC (0-0) K/uL Nucleated RBC % (auto) % Neutrophils % (Manual) % Lymphocytes % (Manual) % Monocytes % (Manual) % Eosinophils % (Manual) % Neutrophils # (Manual) (1.4-6.5) K/uL Total Absolute Neuts (1.4-6.5) K/uL Lymphocytes # (Manual) (1.2-3.4) K/uL Total Abs Lymphocytes (1.2-3.4) K/uL Monocytes # (Manual) (0.11-0.59) K/uL Eosinophils # (Manual) (0-0.5) K/uL Polychromasia Hypochromasia Anisocytosis Echinocytes PT (9.0-12.0) Seconds INR (0.9-1.1) APTT (21.0-31.0) Seconds PTT Ratio Activ Coag Time Kaolin (94-140) SECONDS Fibrinogen (184-400) mg/dl Sample Site POC pH 6.97 L* (7.35-7.45) POC pCO2 66 H (35-46) mmHg POC pO2 94 (80-95) mmHg POC HCO3 15 L (19-24) cornelio/L POC Total CO2 17 L (24-31) mmol/L POC Base Excess -16.0 L (-9-1.8) cornelio/L POC ABG O2 Sat 91.0 (90-95) % Navdeep Test VBG pH (7.36-7.41) VBG pCO2 (38-50) mmHg VBG pO2 mmHg VBG HCO3 mmol/L VBG O2 Saturation % VBG Base Excess mEq/L O2 Delivery Device POC O2 Rate POC FiO2 % Tidal Volume PEEP POC Sodium 137 (135-144) mmol/L Sodium (136-145) mmol/L POC Potassium 4.1 (3.3-5.0) mmol/L Potassium (3.5-5.1) mmol/L Chloride (98-107) mmol/L Carbon Dioxide (21-32) mmol/L Anion Gap (3-11) BUN (7-18) mg/dl Creatinine (0.6-1.2) mg/dl Est Cr Clr Drug Dosing Est GFR ( Amer) ml/min Est GFR (Non-Af Amer) ml/min BUN/Creatinine Ratio (10-20) Glucose (70-99) mg/dl Lactate (0.4-2.0) mmol/L Calcium (8.5-10.1) mg/dl Phosphorus (2.5-4.9) mg/dl Magnesium (1.8-2.4) mg/dl Total Bilirubin (0.2-1) mg/dl AST (15-37) U/L ALT (12-78) U/L Alkaline Phosphatase (45-117) U/L Troponin I (0-0.045) ng/ml NT-Pro-B Natriuret Pep (0-900) pg/ml Total Protein (6.4-8.2) gm/dl Albumin (3.4-5.0) gm/dl Globulin (2.5-4.0) gm/dl Albumin/Globulin Ratio (0.9-2) Procalcitonin (0-0.5) ng/ml TSH (0.300-4.500) uIu/ml Urine Color Yellow Urine Appearance Cloudy A (Clear) Urine pH 5.0 (4.5-7.5) Ur Specific [place] 1.015 (1.000-1.030) Urine Protein 1+ H (Negative) Urine Glucose (UA) Negative (Negative) Urine Ketones Negative (Negative) Urine Blood 3+ H (Negative) Urine Nitrite Negative (Negative) Urine Bilirubin Negative (Negative) Urine Urobilinogen Negative (Negative) Ur Leukocyte Esterase Negative (Negative) Urine WBC (Auto) 10-30 H (0-5) /hpf Urine RBC (Auto) 0-4 (0-4) /hpf U Hyaline Cast (Auto) >30 H (0-5) /lpf U Epithel Cells (Auto) >30 H (0-5) /lpf Urine Bacteria (Auto) 1+ H (Negative) Ur Renal Epithelial Cell Not Reportable Granular Casts 5-10 H (0) /lpf Nasal Screen MRSA (PCR) (Negative) Urine Butalbital Urine Opiates Screen Pos H (Neg) U Codeine Confrm GC/MS Ur Morphine (GC/MS) Ur Hydrocodone (GC/MS) Ur Norhydrocodone Ur Noroxycodone Urine Oxycodone (GC/MS) U Oxymorphone GC/MS Ur Methadone, Qual Neg (Neg) Ur Hydromorphone (GC/MS) Urine Barbiturates Pos H (Neg) Phenytoin (10-20) mcg/ml Ur Phencyclidine (PCP) Neg (Neg) U Amphetamin/Meth Scrn Neg (Neg) MDMA (Ecstasy) Screen Neg (Neg) Urine Amobarbital Urine Pentobarbital Urine Phenobarbital Urine Secobarbital U Benzodiazepines Scrn Neg (Neg) Ur Cocaine Metabolite Neg (Neg) U Marijuana (THC) Screen Pos H (Neg) U Marijuana THC Carboxy Drug Screen Comment Ethyl Alcohol mg/dL (0-3) mg/dl COVID-19 Eval Order SARS-CoV-2 (PCR) (Negative) Blood Type Antibody Screen Crossmatch 06/12/21 06/12/21 06/11/21 Range/Units 00:34 00:34 23:38 WBC (4.8-10.8) K/uL RBC (4.2-5.4) M/uL Hgb (12.0-16.0) g/dL POC Hgb (12.0-16.0) g/dl Hct (37-47) % POC Hct (37-47) % MCV (80-100) fL MCH (25-34) pg MCHC (32-36) g/dL RDW Std Deviation (36.4-46.3) fL RDW Coeff of Lola (11.5-14.5) % Plt Count (130-400) K/uL MPV (7.4-10.4) fL Immature Gran % (Auto) % Neut % (Auto) % Lymph % (Auto) % Taylor % (Auto) % Eos % (Auto) % Baso % (Auto) % Neut # (Auto) (1.4-6.5) K/uL Lymph # (Auto) (1.2-3.4) K/uL Taylor # (Auto) (0.11-0.59) K/uL Eos # (Auto) (0-0.5) K/uL Baso # (Auto) (0-0.2) K/uL Immature Gran # (Auto) (0.00-0.02) K/uL Absolute Nucleated RBC (0-0) K/uL Nucleated RBC % (auto) % Neutrophils % (Manual) % Lymphocytes % (Manual) % Monocytes % (Manual) % Eosinophils % (Manual) % Neutrophils # (Manual) (1.4-6.5) K/uL Total Absolute Neuts (1.4-6.5) K/uL Lymphocytes # (Manual) (1.2-3.4) K/uL Total Abs Lymphocytes (1.2-3.4) K/uL Monocytes # (Manual) (0.11-0.59) K/uL Eosinophils # (Manual) (0-0.5) K/uL Polychromasia Hypochromasia Anisocytosis Echinocytes PT (9.0-12.0) Seconds INR (0.9-1.1) APTT (21.0-31.0) Seconds PTT Ratio Activ Coag Time Kaolin (94-140) SECONDS Fibrinogen (184-400) mg/dl Sample Site POC pH (7.35-7.45) POC pCO2 (35-46) mmHg POC pO2 (80-95) mmHg POC HCO3 (19-24) cornelio/L POC Total CO2 (24-31) mmol/L POC Base Excess (-9-1.8) cornelio/L POC ABG O2 Sat (90-95) % Navdeep Test VBG pH (7.36-7.41) VBG pCO2 (38-50) mmHg VBG pO2 mmHg VBG HCO3 mmol/L VBG O2 Saturation % VBG Base Excess mEq/L O2 Delivery Device POC O2 Rate POC FiO2 % Tidal Volume PEEP POC Sodium (135-144) mmol/L Sodium (136-145) mmol/L POC Potassium (3.3-5.0) mmol/L Potassium (3.5-5.1) mmol/L Chloride (98-107) mmol/L Carbon Dioxide (21-32) mmol/L Anion Gap (3-11) BUN (7-18) mg/dl Creatinine (0.6-1.2) mg/dl Est Cr Clr Drug Dosing Est GFR ( Amer) ml/min Est GFR (Non-Af Amer) ml/min BUN/Creatinine Ratio (10-20) Glucose (70-99) mg/dl Lactate (0.4-2.0) mmol/L Calcium (8.5-10.1) mg/dl Phosphorus (2.5-4.9) mg/dl Magnesium (1.8-2.4) mg/dl Total Bilirubin (0.2-1) mg/dl AST (15-37) U/L ALT (12-78) U/L Alkaline Phosphatase (45-117) U/L Troponin I (0-0.045) ng/ml NT-Pro-B Natriuret Pep (0-900) pg/ml Total Protein (6.4-8.2) gm/dl Albumin (3.4-5.0) gm/dl Globulin (2.5-4.0) gm/dl Albumin/Globulin Ratio (0.9-2) Procalcitonin (0-0.5) ng/ml TSH (0.300-4.500) uIu/ml Urine Color Urine Appearance (Clear) Urine pH (4.5-7.5) Ur Specific [place] (1.000-1.030) Urine Protein (Negative) Urine Glucose (UA) (Negative) Urine Ketones (Negative) Urine Blood (Negative) Urine Nitrite (Negative) Urine Bilirubin (Negative) Urine Urobilinogen (Negative) Ur Leukocyte Esterase (Negative) Urine WBC (Auto) (0-5) /hpf Urine RBC (Auto) (0-4) /hpf U Hyaline Cast (Auto) (0-5) /lpf U Epithel Cells (Auto) (0-5) /lpf Urine Bacteria (Auto) (Negative) Ur Renal Epithelial Cell Granular Casts (0) /lpf Nasal Screen MRSA (PCR) (Negative) Urine Butalbital Urine Opiates Screen (Neg) U Codeine Confrm GC/MS Ur Morphine (GC/MS) Ur Hydrocodone (GC/MS) Ur Norhydrocodone Ur Noroxycodone Urine Oxycodone (GC/MS) U Oxymorphone GC/MS Ur Methadone, Qual (Neg) Ur Hydromorphone (GC/MS) Urine Barbiturates (Neg) Phenytoin (10-20) mcg/ml Ur Phencyclidine (PCP) (Neg) U Amphetamin/Meth Scrn (Neg) MDMA (Ecstasy) Screen (Neg) Urine Amobarbital Urine Pentobarbital Urine Phenobarbital Urine Secobarbital U Benzodiazepines Scrn (Neg) Ur Cocaine Metabolite (Neg) U Marijuana (THC) Screen (Neg) U Marijuana THC Carboxy Drug Screen Comment Ethyl Alcohol mg/dL (0-3) mg/dl COVID-19 Eval Order Cov[facility]19 at [facility] SARS-CoV-2 (PCR) NEGATIVE (Negative) Blood Type O Positive Antibody Screen NEGATIVE Crossmatch See Detail 06/11/21 06/11/21 06/11/21 Range/Units 23:33 23:33 23:25 WBC (4.8-10.8) K/uL RBC (4.2-5.4) M/uL Hgb (12.0-16.0) g/dL POC Hgb (12.0-16.0) g/dl Hct (37-47) % POC Hct (37-47) % MCV (80-100) fL MCH (25-34) pg MCHC (32-36) g/dL RDW Std Deviation (36.4-46.3) fL RDW Coeff of Lola (11.5-14.5) % Plt Count (130-400) K/uL MPV (7.4-10.4) fL Immature Gran % (Auto) % Neut % (Auto) % Lymph % (Auto) % Taylor % (Auto) % Eos % (Auto) % Baso % (Auto) % Neut # (Auto) (1.4-6.5) K/uL Lymph # (Auto) (1.2-3.4) K/uL Taylor # (Auto) (0.11-0.59) K/uL Eos # (Auto) (0-0.5) K/uL Baso # (Auto) (0-0.2) K/uL Immature Gran # (Auto) (0.00-0.02) K/uL Absolute Nucleated RBC (0-0) K/uL Nucleated RBC % (auto) % Neutrophils % (Manual) % Lymphocytes % (Manual) % Monocytes % (Manual) % Eosinophils % (Manual) % Neutrophils # (Manual) (1.4-6.5) K/uL Total Absolute Neuts (1.4-6.5) K/uL Lymphocytes # (Manual) (1.2-3.4) K/uL Total Abs Lymphocytes (1.2-3.4) K/uL Monocytes # (Manual) (0.11-0.59) K/uL Eosinophils # (Manual) (0-0.5) K/uL Polychromasia Hypochromasia Anisocytosis Echinocytes PT (9.0-12.0) Seconds INR (0.9-1.1) APTT (21.0-31.0) Seconds PTT Ratio Activ Coag Time Kaolin (94-140) SECONDS Fibrinogen (184-400) mg/dl Sample Site POC pH (7.35-7.45) POC pCO2 (35-46) mmHg POC pO2 (80-95) mmHg POC HCO3 (19-24) cornelio/L POC Total CO2 (24-31) mmol/L POC Base Excess (-9-1.8) cornelio/L POC ABG O2 Sat (90-95) % Navdeep Test VBG pH 7.02 L (7.36-7.41) VBG pCO2 47 (38-50) mmHg VBG pO2 24 mmHg VBG HCO3 12 mmol/L VBG O2 Saturation < 60.0 % VBG Base Excess -18.0 mEq/L O2 Delivery Device POC O2 Rate POC FiO2 % Tidal Volume PEEP POC Sodium (135-144) mmol/L Sodium (136-145) mmol/L POC Potassium (3.3-5.0) mmol/L Potassium (3.5-5.1) mmol/L Chloride (98-107) mmol/L Carbon Dioxide (21-32) mmol/L Anion Gap (3-11) BUN (7-18) mg/dl Creatinine (0.6-1.2) mg/dl Est Cr Clr Drug Dosing Est GFR ( Amer) ml/min Est GFR (Non-Af Amer) ml/min BUN/Creatinine Ratio (10-20) Glucose (70-99) mg/dl Lactate 15.6 H* (0.4-2.0) mmol/L Calcium (8.5-10.1) mg/dl Phosphorus (2.5-4.9) mg/dl Magnesium (1.8-2.4) mg/dl Total Bilirubin (0.2-1) mg/dl AST (15-37) U/L ALT (12-78) U/L Alkaline Phosphatase (45-117) U/L Troponin I (0-0.045) ng/ml NT-Pro-B Natriuret Pep (0-900) pg/ml Total Protein (6.4-8.2) gm/dl Albumin (3.4-5.0) gm/dl Globulin (2.5-4.0) gm/dl Albumin/Globulin Ratio (0.9-2) Procalcitonin < 0.05 (0-0.5) ng/ml TSH (0.300-4.500) uIu/ml Urine Color Urine Appearance (Clear) Urine pH (4.5-7.5) Ur Specific [place] (1.000-1.030) Urine Protein (Negative) Urine Glucose (UA) (Negative) Urine Ketones (Negative) Urine Blood (Negative) Urine Nitrite (Negative) Urine Bilirubin (Negative) Urine Urobilinogen (Negative) Ur Leukocyte Esterase (Negative) Urine WBC (Auto) (0-5) /hpf Urine RBC (Auto) (0-4) /hpf U Hyaline Cast (Auto) (0-5) /lpf U Epithel Cells (Auto) (0-5) /lpf Urine Bacteria (Auto) (Negative) Ur Renal Epithelial Cell Granular Casts (0) /lpf Nasal Screen MRSA (PCR) (Negative) Urine Butalbital Urine Opiates Screen (Neg) U Codeine Confrm GC/MS Ur Morphine (GC/MS) Ur Hydrocodone (GC/MS) Ur Norhydrocodone Ur Noroxycodone Urine Oxycodone (GC/MS) U Oxymorphone GC/MS Ur Methadone, Qual (Neg) Ur Hydromorphone (GC/MS) Urine Barbiturates (Neg) Phenytoin (10-20) mcg/ml Ur Phencyclidine (PCP) (Neg) U Amphetamin/Meth Scrn (Neg) MDMA (Ecstasy) Screen (Neg) Urine Amobarbital Urine Pentobarbital Urine Phenobarbital Urine Secobarbital U Benzodiazepines Scrn (Neg) Ur Cocaine Metabolite (Neg) U Marijuana (THC) Screen (Neg) U Marijuana THC Carboxy Drug Screen Comment Ethyl Alcohol mg/dL (0-3) mg/dl COVID-19 Eval Order SARS-CoV-2 (PCR) (Negative) Blood Type Antibody Screen Crossmatch 06/11/21 06/11/21 06/11/21 Range/Units 23:25 23:25 23:25 WBC (4.8-10.8) K/uL RBC (4.2-5.4) M/uL Hgb (12.0-16.0) g/dL POC Hgb (12.0-16.0) g/dl Hct (37-47) % POC Hct (37-47) % MCV (80-100) fL MCH (25-34) pg MCHC (32-36) g/dL RDW Std Deviation (36.4-46.3) fL RDW Coeff of Lola (11.5-14.5) % Plt Count (130-400) K/uL MPV (7.4-10.4) fL Immature Gran % (Auto) % Neut % (Auto) % Lymph % (Auto) % Taylor % (Auto) % Eos % (Auto) % Baso % (Auto) % Neut # (Auto) (1.4-6.5) K/uL Lymph # (Auto) (1.2-3.4) K/uL Taylor # (Auto) (0.11-0.59) K/uL Eos # (Auto) (0-0.5) K/uL Baso # (Auto) (0-0.2) K/uL Immature Gran # (Auto) (0.00-0.02) K/uL Absolute Nucleated RBC (0-0) K/uL Nucleated RBC % (auto) % Neutrophils % (Manual) % Lymphocytes % (Manual) % Monocytes % (Manual) % Eosinophils % (Manual) % Neutrophils # (Manual) (1.4-6.5) K/uL Total Absolute Neuts (1.4-6.5) K/uL Lymphocytes # (Manual) (1.2-3.4) K/uL Total Abs Lymphocytes (1.2-3.4) K/uL Monocytes # (Manual) (0.11-0.59) K/uL Eosinophils # (Manual) (0-0.5) K/uL Polychromasia Hypochromasia Anisocytosis Echinocytes PT (9.0-12.0) Seconds INR (0.9-1.1) APTT (21.0-31.0) Seconds PTT Ratio Activ Coag Time Kaolin (94-140) SECONDS Fibrinogen (184-400) mg/dl Sample Site POC pH (7.35-7.45) POC pCO2 (35-46) mmHg POC pO2 (80-95) mmHg POC HCO3 (19-24) cornelio/L POC Total CO2 (24-31) mmol/L POC Base Excess (-9-1.8) cornelio/L POC ABG O2 Sat (90-95) % Navdeep Test VBG pH (7.36-7.41) VBG pCO2 (38-50) mmHg VBG pO2 mmHg VBG HCO3 mmol/L VBG O2 Saturation % VBG Base Excess mEq/L O2 Delivery Device POC O2 Rate POC FiO2 % Tidal Volume PEEP POC Sodium (135-144) mmol/L Sodium 137 (136-145) mmol/L POC Potassium (3.3-5.0) mmol/L Potassium 4.8 (3.5-5.1) mmol/L Chloride 103 (98-107) mmol/L Carbon Dioxide 12 L (21-32) mmol/L Anion Gap 22.0 H (3-11) BUN 22 H (7-18) mg/dl Creatinine 0.96 (0.6-1.2) mg/dl Est Cr Clr Drug Dosing Not Reportable Est GFR ( Amer) 76.6 ml/min Est GFR (Non-Af Amer) 66.1 ml/min BUN/Creatinine Ratio 22.9 H (10-20) Glucose 168 H (70-99) mg/dl Lactate (0.4-2.0) mmol/L Calcium 8.8 (8.5-10.1) mg/dl Phosphorus (2.5-4.9) mg/dl Magnesium 2.5 H (1.8-2.4) mg/dl Total Bilirubin 0.3 (0.2-1) mg/dl AST 71 H (15-37) U/L ALT 48 (12-78) U/L Alkaline Phosphatase 191 H (45-117) U/L Troponin I 6.850 H* (0-0.045) ng/ml NT-Pro-B Natriuret Pep > 98057 H (0-900) pg/ml Total Protein 6.9 (6.4-8.2) gm/dl Albumin 2.8 L (3.4-5.0) gm/dl Globulin 4.1 H (2.5-4.0) gm/dl Albumin/Globulin Ratio 0.7 L (0.9-2) Procalcitonin (0-0.5) ng/ml TSH (0.300-4.500) uIu/ml Urine Color Urine Appearance (Clear) Urine pH (4.5-7.5) Ur Specific [place] (1.000-1.030) Urine Protein (Negative) Urine Glucose (UA) (Negative) Urine Ketones (Negative) Urine Blood (Negative) Urine Nitrite (Negative) Urine Bilirubin (Negative) Urine Urobilinogen (Negative) Ur Leukocyte Esterase (Negative) Urine WBC (Auto) (0-5) /hpf Urine RBC (Auto) (0-4) /hpf U Hyaline Cast (Auto) (0-5) /lpf U Epithel Cells (Auto) (0-5) /lpf Urine Bacteria (Auto) (Negative) Ur Renal Epithelial Cell Granular Casts (0) /lpf Nasal Screen MRSA (PCR) (Negative) Urine Butalbital Urine Opiates Screen (Neg) U Codeine Confrm GC/MS Ur Morphine (GC/MS) Ur Hydrocodone (GC/MS) Ur Norhydrocodone Ur Noroxycodone Urine Oxycodone (GC/MS) U Oxymorphone GC/MS Ur Methadone, Qual (Neg) Ur Hydromorphone (GC/MS) Urine Barbiturates (Neg) Phenytoin 3.2 L (10-20) mcg/ml Ur Phencyclidine (PCP) (Neg) U Amphetamin/Meth Scrn (Neg) MDMA (Ecstasy) Screen (Neg) Urine Amobarbital Urine Pentobarbital Urine Phenobarbital Urine Secobarbital U Benzodiazepines Scrn (Neg) Ur Cocaine Metabolite (Neg) U Marijuana (THC) Screen (Neg) U Marijuana THC Carboxy Drug Screen Comment Ethyl Alcohol mg/dL < 3.0 (0-3) mg/dl COVID-19 Eval Order SARS-CoV-2 (PCR) (Negative) Blood Type Antibody Screen Crossmatch 06/11/21 06/11/21 Range/Units 23:25 23:25 WBC 17.64 H (4.8-10.8) K/uL RBC 3.39 L (4.2-5.4) M/uL Hgb 9.0 L (12.0-16.0) g/dL POC Hgb (12.0-16.0) g/dl Hct 31.5 L (37-47) % POC Hct (37-47) % MCV 92.9 (80-100) fL MCH 26.5 (25-34) pg MCHC 28.6 L (32-36) g/dL RDW Std Deviation 69.1 H (36.4-46.3) fL RDW Coeff of Lola 21.2 H (11.5-14.5) % Plt Count 311 (130-400) K/uL MPV 9.8 (7.4-10.4) fL Immature Gran % (Auto) % Neut % (Auto) % Lymph % (Auto) % Taylor % (Auto) % Eos % (Auto) % Baso % (Auto) % Neut # (Auto) (1.4-6.5) K/uL Lymph # (Auto) (1.2-3.4) K/uL Taylor # (Auto) (0.11-0.59) K/uL Eos # (Auto) (0-0.5) K/uL Baso # (Auto) (0-0.2) K/uL Immature Gran # (Auto) (0.00-0.02) K/uL Absolute Nucleated RBC 0.04 H (0-0) K/uL Nucleated RBC % (auto) 0.3 % Neutrophils % (Manual) 84.3 % Lymphocytes % (Manual) 7.8 % Monocytes % (Manual) 7.0 % Eosinophils % (Manual) 0.9 % Neutrophils # (Manual) 14.87 H (1.4-6.5) K/uL Total Absolute Neuts 14.87 H (1.4-6.5) K/uL Lymphocytes # (Manual) 1.38 (1.2-3.4) K/uL Total Abs Lymphocytes 1.38 (1.2-3.4) K/uL Monocytes # (Manual) 1.23 H (0.11-0.59) K/uL Eosinophils # (Manual) 0.16 (0-0.5) K/uL Polychromasia 1+ Hypochromasia Anisocytosis Echinocytes 1+ PT 11.5 (9.0-12.0) Seconds INR 1.1 (0.9-1.1) APTT 28.2 (21.0-31.0) Seconds PTT Ratio 1.1 Activ Coag Time Kaolin (94-140) SECONDS Fibrinogen (184-400) mg/dl Sample Site POC pH (7.35-7.45) POC pCO2 (35-46) mmHg POC pO2 (80-95) mmHg POC HCO3 (19-24) cornelio/L POC Total CO2 (24-31) mmol/L POC Base Excess (-9-1.8) cornelio/L POC ABG O2 Sat (90-95) % Navdeep Test VBG pH (7.36-7.41) VBG pCO2 (38-50) mmHg VBG pO2 mmHg VBG HCO3 mmol/L VBG O2 Saturation % VBG Base Excess mEq/L O2 Delivery Device POC O2 Rate POC FiO2 % Tidal Volume PEEP POC Sodium (135-144) mmol/L Sodium (136-145) mmol/L POC Potassium (3.3-5.0) mmol/L Potassium (3.5-5.1) mmol/L Chloride (98-107) mmol/L Carbon Dioxide (21-32) mmol/L Anion Gap (3-11) BUN (7-18) mg/dl Creatinine (0.6-1.2) mg/dl Est Cr Clr Drug Dosing Est GFR ( Amer) ml/min Est GFR (Non-Af Amer) ml/min BUN/Creatinine Ratio (10-20) Glucose (70-99) mg/dl Lactate (0.4-2.0) mmol/L Calcium (8.5-10.1) mg/dl Phosphorus (2.5-4.9) mg/dl Magnesium (1.8-2.4) mg/dl Total Bilirubin (0.2-1) mg/dl AST (15-37) U/L ALT (12-78) U/L Alkaline Phosphatase (45-117) U/L Troponin I (0-0.045) ng/ml NT-Pro-B Natriuret Pep (0-900) pg/ml Total Protein (6.4-8.2) gm/dl Albumin (3.4-5.0) gm/dl Globulin (2.5-4.0) gm/dl Albumin/Globulin Ratio (0.9-2) Procalcitonin (0-0.5) ng/ml TSH (0.300-4.500) uIu/ml Urine Color Urine Appearance (Clear) Urine pH (4.5-7.5) Ur Specific [place] (1.000-1.030) Urine Protein (Negative) Urine Glucose (UA) (Negative) Urine Ketones (Negative) Urine Blood (Negative) Urine Nitrite (Negative) Urine Bilirubin (Negative) Urine Urobilinogen (Negative) Ur Leukocyte Esterase (Negative) Urine WBC (Auto) (0-5) /hpf Urine RBC (Auto) (0-4) /hpf U Hyaline Cast (Auto) (0-5) /lpf U Epithel Cells (Auto) (0-5) /lpf Urine Bacteria (Auto) (Negative) Ur Renal Epithelial Cell Granular Casts (0) /lpf Nasal Screen MRSA (PCR) (Negative) Urine Butalbital Urine Opiates Screen (Neg) U Codeine Confrm GC/MS Ur Morphine (GC/MS) Ur Hydrocodone (GC/MS) Ur Norhydrocodone Ur Noroxycodone Urine Oxycodone (GC/MS) U Oxymorphone GC/MS Ur Methadone, Qual (Neg) Ur Hydromorphone (GC/MS) Urine Barbiturates (Neg) Phenytoin (10-20) mcg/ml Ur Phencyclidine (PCP) (Neg) U Amphetamin/Meth Scrn (Neg) MDMA (Ecstasy) Screen (Neg) Urine Amobarbital Urine Pentobarbital Urine Phenobarbital Urine Secobarbital U Benzodiazepines Scrn (Neg) Ur Cocaine Metabolite (Neg) U Marijuana (THC) Screen (Neg) U Marijuana THC Carboxy Drug Screen Comment Ethyl Alcohol mg/dL (0-3) mg/dl COVID-19 Eval Order SARS-CoV-2 (PCR) (Negative) Blood Type Antibody Screen Crossmatch
[2021-06-12] MEDS: MIDAZOLAM HCL 1 MG/ML 2ML VIAL IV PRN (09:58)
[2021-06-12] MEDS ORDERED: ALBUT/IPRATROP 3MG/0.5MG NEB 3 ML VIAL INH STA (10:07)
--- NOTE | 2021-06-12 10:22 | XRay Report ---
XR chest 1V portable HISTORY: 55 years-old Female worsening hypoxia acute hypoxia COMPARISON: Chest radiograph of same day at 9:03 AM and also 06/11/2021 TECHNIQUE: Portable AP view of the chest FINDINGS: Endotracheal tube overlies the midline, 2.6 cm superior to the vaughn. Enteric tube courses below the diaphragm with distal tip outside the field of view. Single lead left subclavian pacer/AICD. No pneu mothorax. Small pleural effusions. Interstitial coarsening with left midlung predominant airspace opa cities. Moderately improved aeration from 06/11/2021. No acute fracture. Degenerative changes of the shoulders and spine. IMPRESSION: 1. Lines and tubes as above. 2. Small pleural effusions with interstitial coarsening and left midlung predominant airspace opaciti es. There is moderately improved aeration of the lungs compared to the 06/11/2021 exam. ACT 112: Negative or not required by law. The above report was generated using voice recognition software. It may contain grammatical, syntax o r spelling errors. Electronically signed by: Freeman Nelson M.D. 06/12/2021 10:21 AM
--- NOTE | 2021-06-12 10:25 | XRay Report ---
XR chest 1V portable HISTORY: 55 years-old Female Resp failure respiratory failure COMPARISON: Chest radiograph 06/11/2021 TECHNIQUE: Portable AP view the chest FINDINGS: Endotracheal tube terminates 2.8 cm superior to the vaughn. Enteric tube courses below the diaphragm with distal tip outside the [id number]. Single lead left subclavian pacer/AICD. Mild cardiomegaly. Coronary arterial stent. No pneumothorax. Small pleural effusions redemonstrated. Interstitial coars ening with left basilar and left midlung predominant airspace opacities. There is mildly improved aer ation of the lungs from comparison. No acute fracture. IMPRESSION: 1. Lines and tubes as above. 2. There is moderately improved aeration of the lungs. 3. Small pleural effusions have mildly decreased in size. ACT 112: Negative or not required by law. The above report was generated using voice recognition software. It may contain grammatical, syntax o r spelling errors. Electronically signed by: Freeman Nelson M.D. 06/12/2021 10:24 AM
[2021-06-12 11:06] LABS: iSTAT Arterial Blood Gas HCO3 14 meg/L (19-24); iSTAT Arterial Blood Gas pCO2 72 mmHg (35-46); iSTAT Arterial Blood Gas pO2 118 mmHg (80-95); iSTAT Carbon Dioxide 16 mmol/L (24-31); iSTAT Hematocrit 30 % (37-47); iSTAT Hemoglobin 10.2 g/dl (12.0-16.0); iSTAT Potassium 4.3 mmol/L (3.3-5.0); iSTAT Sodium 137 mmol/L (135-144)
[2021-06-12 11:09] LABS: iSTAT Arterial Blood Gas pH 6.89 (7.35-7.45)
--- NOTE | 2021-06-12 11:23 | Communication Note ---
Date of Service: June 12, 2021 Patient was seen and examined. EMR reviewed. Discussed with family practice resident as well as critical care REECE. Notes were extensively reviewed in the EMR. Also discussed with cardiology. Patient's vent settings and chest x-ray are significantly improved. We will work on weaning her ventilator. Continue diuresis as tolerated for elevated LVE DP. She is been hemodynamically stable. Continue dual antiplatelet agents. Discussed with the GI REECE. Await their evaluation for melanotic stools. The patient is at risk for peptic ulcer disease as well as potential intestinal ischemia given the severity of her peripheral vascular disease and potential hypotensive episode prior to admission. Her hemoglobin and hematocrit have slightly decreased and she is receiving 1 unit of packed cells now. We will continue to trend. IV access has been problematic but she currently has 3 peripheral IVs. We will check a respiratory culture. It is unclear if the patient has an underlying lower respiratory infection. Antibiotics may be tapered over the next 12 to 24 hours. Continue sedation for now. We will discontinue her Cardizem. Also discontinue nitrates. If she has room, beta-demi and HAILEY inhibitor may be indicated given her LV dysfunction. Cardiology consultation pending and will defer long-term medical management to them. An additional 50 minutes of critical care time was spent in evaluation management stabilization of this patient with life-threatening illness. Coding Level of Care Code Critical Care damaris sparks'l 30 min Time Spent (min) 50 Comment 50 minutes additional critical care time
[2021-06-12 12:08] LABS: Hematocrit (blood only) 30.9 % (37-47); Hemoglobin 9.8 g/dL (12.0-16.0)
--- NOTE | 2021-06-12 12:28 | Electrocardiogram Report ---
Test Reason : Blood Pressure : / mmHG Vent. Rate : 088 BPM Atrial Rate : 088 BPM P-R Int : 168 ms QRS Dur : 086 ms QT Int : 398 ms P-R-T Axes : 066 046 263 degrees QTc Int : 481 ms Normal sinus rhythm Possible Left atrial enlargement Prolonged QT Abnormal ECG When compared with ECG of 11-JUN-2021 23:25, (unconfirmed) ST no longer depressed in Inferior leads Confirmed by Hector Paige ([id number]) on 06/12/2021 12:28:10 PM Referred By: REFERRED SELF Confirmed By:Hector Paige
--- NOTE | 2021-06-12 13:36 | Cardiology Consultation ---
Date of Consultation June 12, 2021 Assessment & Plan (1) Respiratory failure with hypoxia and hypercapnia: (2) Non-ST elevation HI (NSTEMI): (3) ACS (acute coronary syndrome): (4) GI bleed: Patient is an extremely complex 55-year-old female with recent clinical course notable for presentation with syncope and profound anemia. He presents now in acute respiratory distress and congestive heart failure secondary to myocardial ischemia Patient underwent emergent cardiac catheterization study demonstrating right coronary occlusion and high-grade proximal LAD stenosis successfully intervened on with drug-eluting stent. Patient remains intubated with plans for further attempts at weaning later. She is on appropriate medical therapies. Has been receiving blood transfusion for anemia, GI bleeding. Patient remains very tenuous but on appropriate therapies. Previously on high-dose diltiazem for documented Prinzmetal angina. Currently contraindicated in the setting of acute pulmonary edema and severe LV dysfunction but may need to resume calcium channel demi given clinical course. Antiplatelet therapy in place for recent drug-eluting stent Exam currently does not suggest profound volume overload Will continue to follow in hospital History of Present Illness Reason for Consultation: Status post emergent PCI acute respiratory failure and pulmonary Requesting Physician: Dr. Brown Attending Physician: Reji Brown MD History of Present Illness Patient is a very complex 55-year-old female with ongoing issues include 1. Chronic coronary artery disease past LAD stenting as well as vasospastic angina 2. Prior VT arrest, due to coronary artery vasospasm versus acquired QT prolongation with azithromycin exposure, prompting implantation of single- chamber AICD 2009, device exchange 2017 [id number] 3. Acute syncope 05/15/2021 in association with marked microcytic anemia possible GI bleed 4. Peripheral arterial disease with left superficial femoral artery occlusion, left subclavian artery stenosis 5. Type 2 myotonic dystrophy 6. Past pulmonary embolism, Coumadin discontinued due to gastrointestinal bleeding in 2009 7. Carotid artery disease status post left carotid endarterectomy, 2015 Patient presents now for acute readmission having been found confused and agitated at home complaining of diffuse pain and marked respiratory distress on ER presentation. Echocardiogram in ER and since this morning demonstrates severe LV dysfunction with findings consistent with acute pulmonary edema. Due to unstable findings elevated troponin patient was taken to the [facility] emerg[facility] and ultimately underwent coronary angiography with difficult access as noted. Patient was found to have high-grade proximal LAD stenosis and chronic right coronary occlusion. Coronary stent was placed. Patient remains in the intensive care unit on ventilator though with plans for further weaning today. Recent history as noted below hospitalization in the past month with profound microcytic anemia possible GI bleeding currently with melanotic stools. Patient sedated and unable to give additional information Chest x-ray this morning demonstrates improved aeration. Troponins consistent with myocardial infarction with echocardiogram reflective of severe LV dysfunction with inferior and septal and apical wall motion abnormality Allergies Allergy/AdvReac Type Severity Reaction Status Date / Time bee venom protein (honey bee) Allergy Severe Anaphylaxis Verified 06/12/21 00:03 -HIVES latex Allergy Intermediate HIVES, Verified 06/12/21 00:03 BLISTERS scopolamine Allergy Unknown Unknown Verified 06/12/21 00:03 azithromycin [From Zithromax] AdvReac Severe STOMACH Verified 06/12/21 00:03 ULCERS, BLEEDING, ARRYTHMIAS dexbrompheniramine AdvReac Severe CARDIAC Verified 06/12/21 00:03 SPASMS--ALL ANTIHISTAMINES pseudoephedrine AdvReac Severe CARDIAC Verified 06/12/21 00:03 SPASMS--ALL ANTIHISTAMINES levofloxacin AdvReac Intermediate QTC Verified 06/12/21 00:03 PROLONGATION H/O VF ARREST meperidine AdvReac Intermediate NAUSEA, Verified 06/12/21 00:03 VOMITING methadone AdvReac Intermediate NAUSEA, Verified 06/12/21 00:03 VOMITING, RASH diphenhydramine AdvReac Mild "ARTERITAL Verified 06/12/21 00:03 SPASMS" FLU VIRUS VACCINE Allergy Severe EDEMA Uncoded 06/12/21 00:03 AIRWAY COLD AdvReac Unknown VASCULAR Uncoded 06/12/21 00:03 COLLAPSE SYNDROME Home Medications Medication Instructions Recorded Confirmed Type albuterol sulfate 90 mcg/actuation 2 puff INHALATION Q4 PRN 05/15/21 06/12/21 History aerosol inhaler aspirin 81 mg tablet,delayed 81 mg PO DAILY 05/15/21 06/12/21 History release atorvastatin 80 mg tablet 80 mg PO HS 05/15/21 06/12/21 History diltiazem HCl 240 mg capsule,24 480 mg PO DAILY 05/15/21 06/12/21 History hr,extended release epinephrine 0.3 mg/0.3 mL 0.3 mg IM UD PRN 05/15/21 06/12/21 History injection, auto-injector (EpiPen) fluticasone propionate 50 2 spray INTRANASAL DAILY 05/15/21 06/12/21 History mcg/actuation nasal spray,suspension furosemide 20 mg tablet 20 mg PO DAILY 05/15/21 06/12/21 History gabapentin 600 mg tablet 600 mg PO TID 05/15/21 06/12/21 History isosorbide dinitrate 5 mg tablet 5 mg PO DIRECTED PRN 05/15/21 06/12/21 History isosorbide mononitrate 120 mg 120 mg PO AMPM 05/15/21 06/12/21 History tablet,extended release 24 hr levetiracetam 1,000 mg tablet 1,000 mg PO BID 05/15/21 06/12/21 History lisinopril 5 mg tablet 10 mg PO DAILY 05/15/21 06/12/21 History loratadine 10 mg tablet 10 mg PO DAILY 05/15/21 06/12/21 History morphine 30 mg tablet,extended 30 mg PO BID 05/15/21 06/12/21 History release oxycodone 5 mg tablet 5 mg PO Q6 PRN 05/15/21 06/12/21 History phenytoin sodium extended 100 mg 100 mg PO TID 05/15/21 06/12/21 History capsule potassium chloride 20 mEq 40 meq PO DAILY 05/15/21 06/12/21 History tablet,extended release(part/cryst) prazosin 1 mg capsule 1 mg PO BID 05/15/21 06/12/21 History protein 500 mg chewable tablet 500 mg PO DAILY 05/15/21 06/12/21 History tizanidine 4 mg tablet 4 mg PO Q8 PRN 05/15/21 06/12/21 History trazodone 50 mg tablet 100 mg PO HS 05/15/21 06/12/21 History ferrous sulfate 325 mg (65 mg 325 mg PO BIDM #60 tab 05/18/21 06/12/21 Rx iron) tablet,delayed release pantoprazole 40 mg tablet,delayed 40 mg PO BID #60 tab 05/18/21 06/12/21 Rx release acetaminophen 325 mg tablet 325 mg PO Q6H PRN 06/12/21 06/12/21 History (Tylenol) aspirin 325 mg tablet,delayed 650 mg PO BID PRN 06/12/21 06/12/21 History release gabapentin 300 mg capsule 300 mg PO TID 06/12/21 06/12/21 History guaifenesin 600 mg tablet, 600 mg PO Q12H PRN 06/12/21 06/12/21 History extended release 12 hr ondansetron HCl 4 mg tablet 4 mg PO Q8H PRN 06/12/21 06/12/21 History (Zofran) primidone 50 mg tablet 50 mg PO TID 06/12/21 06/12/21 History Patient History Social History Smoking Status: Current every day smoker Tobacco Type: Cigarettes Second Hand Exposure: No; Do You Dip or Chew Tobacco: No; Tobacco Cessation Education Requested by Patient: No Hx Alcohol Use: No Hx Substance Use: Yes Last Used Substance: Unknown Preferred Language: Montserratian Communication Ability: Unable Communication Ability Comment: Intubated [facility] Supervisor Required: No Beliefs That Will Affect Care: None marital status: Current Living Situation: Family Other Information That Helps Us Care for You: No Feels Safe at Home: Yes Safety Concerns: Feels Safe At This Time Assistive Devices: Oxygen - Continuous Review of Systems Review of Systems: Unobtainable due to endotracheal tube Physical Exam Constitutional: + ill appearing and + mechanically ventilated ENMT: Endotracheal tube in place Neck: trachea midline, no thyromegaly Respiratory: Coarse upper airway sounds Cardiovascular: Rate/Rhythm: regular rate and regular rhythm Peripheral pulses are markedly diminished Chest (Breasts): Chest: + pacemaker (Defibrillator site without her to) Gastrointestinal (Abdomen): normal bowel sounds, soft, nontender, no hepatosplenomegaly Results & Data ([facility]) Vital Signs (Past 12 Hours) Vital Signs Temp Pulse Pulse Resp BP BP Pulse Ox 06/12/21 10:35 84 31 H 100 06/12/21 10:24 37.3 C 78 24 102/67 84 L 06/12/21 09:45 37.1 C 86 27 H 110/78 88 L 06/12/21 08:45 37.1 C 91 H 22 128/81 95 06/12/21 08:30 37 C 90 26 H 124/77 06/12/21 08:16 36.6 C 91 H 20 108/71 100 06/12/21 07:23 86 30 H 100 06/12/21 07:00 36.7 C 81 30 H 120/79 100 06/12/21 06:00 36.0 C L 79 26 H 100 06/12/21 05:27 24 06/12/21 05:00 36.0 C L 70 28 H 94/62 L 96 06/12/21 04:45 35.7 C L 75 28 H 91/59 L 95 06/12/21 04:35 35.5 C L 74 28 H 112/73 100 06/12/21 04:30 35.5 C L 72 28 H 105/67 97 06/12/21 04:21 35.5 C L 72 28 H 108/70 100 06/12/21 04:07 74 28 H 100 06/12/21 03:50 84 30 H 93 Laboratory Results Laboratory Results - last 24 hr 06/11/21 06/11/21 06/11/21 23:25 23:25 23:25 WBC 17.64 H RBC 3.39 L Hgb 9.0 L POC Hgb Hct 31.5 L POC Hct MCV 92.9 MCH 26.5 MCHC 28.6 L RDW Std Deviation 69.1 H RDW Coeff of Lola 21.2 H Plt Count 311 MPV 9.8 Immature Gran % (Auto) Neut % (Auto) Lymph % (Auto) [place] % (Auto) Eos % (Auto) Baso % (Auto) Neut # (Auto) Lymph # (Auto) [place] # (Auto) Eos # (Auto) Baso # (Auto) Immature Gran # (Auto) Absolute Nucleated RBC 0.04 H Nucleated RBC % (auto) 0.3 Neutrophils % (Manual) 84.3 Lymphocytes % (Manual) 7.8 Monocytes % (Manual) 7.0 Eosinophils % (Manual) 0.9 Neutrophils # (Manual) 14.87 H Total Absolute Neuts 14.87 H Lymphocytes # (Manual) 1.38 Total Abs Lymphocytes 1.38 Monocytes # (Manual) 1.23 H Eosinophils # (Manual) 0.16 Polychromasia 1+ Hypochromasia Anisocytosis Echinocytes 1+ PT 11.5 INR 1.1 APTT 28.2 PTT Ratio 1.1 Activ Coag Time Kaolin Fibrinogen Sample Site POC pH POC pCO2 POC pO2 POC HCO3 POC Total CO2 POC Base Excess POC ABG O2 Sat Navdeep Test VBG pH VBG pCO2 VBG pO2 VBG HCO3 VBG O2 Saturation VBG Base Excess O2 Delivery Device POC O2 Rate POC FiO2 Tidal Volume PEEP POC Sodium Sodium 137 POC Potassium Potassium 4.8 Chloride 103 Carbon Dioxide 12 L Anion Gap 22.0 H BUN 22 H Creatinine 0.96 Est Cr Clr Drug Dosing Not Reportable Est GFR ( Amer) 76.6 Est GFR (Non-Af Amer) 66.1 BUN/Creatinine Ratio 22.9 H Glucose 168 H POC Glucose Lactate Calcium 8.8 Phosphorus Magnesium 2.5 H Total Bilirubin 0.3 AST 71 H ALT 48 Alkaline Phosphatase 191 H Troponin I 6.850 H* NT-Pro-B Natriuret Pep > 35943 H Total Protein 6.9 Albumin 2.8 L Globulin 4.1 H Albumin/Globulin Ratio 0.7 L Procalcitonin TSH Urine Color Urine Appearance Urine pH Ur Specific [place] Urine Protein Urine Glucose (UA) Urine Ketones Urine Blood Urine Nitrite Urine Bilirubin Urine Urobilinogen Ur Leukocyte Esterase Urine WBC (Auto) Urine RBC (Auto) U Hyaline Cast (Auto) U Epithel Cells (Auto) Urine Bacteria (Auto) Ur Renal Epithelial Cell Granular Casts Nasal Screen MRSA (PCR) Urine Butalbital Urine Opiates Screen U Codeine Confrm GC/MS Ur Morphine (GC/MS) Ur Hydrocodone (GC/MS) Ur Norhydrocodone Ur Noroxycodone Urine Oxycodone (GC/MS) U Oxymorphone GC/MS Ur Methadone, Qual Ur Hydromorphone (GC/MS) Urine Barbiturates Phenytoin Ur Phencyclidine (PCP) U Amphetamin/Meth Scrn MDMA (Ecstasy) Screen Urine Amobarbital Urine Pentobarbital Urine Phenobarbital Urine Secobarbital U Benzodiazepines Scrn Ur Cocaine Metabolite U Marijuana (THC) Screen U Marijuana THC Carboxy Drug Screen Comment Ethyl Alcohol mg/dL COVID-19 Eval Order SARS-CoV-2 (PCR) Blood Type Antibody Screen Crossmatch 06/11/21 06/11/21 06/11/21 23:25 23:25 23:25 WBC RBC Hgb POC Hgb Hct POC Hct MCV MCH MCHC RDW Std Deviation RDW Coeff of Lola Plt Count MPV Immature Gran % (Auto) Neut % (Auto) Lymph % (Auto) [place] % (Auto) Eos % (Auto) Baso % (Auto) Neut # (Auto) Lymph # (Auto) [place] # (Auto) Eos # (Auto) Baso # (Auto) Immature Gran # (Auto) Absolute Nucleated RBC Nucleated RBC % (auto) Neutrophils % (Manual) Lymphocytes % (Manual) Monocytes % (Manual) Eosinophils % (Manual) Neutrophils # (Manual) Total Absolute Neuts Lymphocytes # (Manual) Total Abs Lymphocytes Monocytes # (Manual) Eosinophils # (Manual) Polychromasia Hypochromasia Anisocytosis Echinocytes PT INR APTT PTT Ratio Activ Coag Time Kaolin Fibrinogen Sample Site POC pH POC pCO2 POC pO2 POC HCO3 POC Total CO2 POC Base Excess POC ABG O2 Sat Navdeep Test VBG pH VBG pCO2 VBG pO2 VBG HCO3 VBG O2 Saturation VBG Base Excess O2 Delivery Device POC O2 Rate POC FiO2 Tidal Volume PEEP POC Sodium Sodium POC Potassium Potassium Chloride Carbon Dioxide Anion Gap BUN Creatinine Est Cr Clr Drug Dosing Est GFR ( Amer) Est GFR (Non-Af Amer) BUN/Creatinine Ratio Glucose POC Glucose Lactate Calcium Phosphorus Magnesium Total Bilirubin AST ALT Alkaline Phosphatase Troponin I NT-Pro-B Natriuret Pep Total Protein Albumin Globulin Albumin/Globulin Ratio Procalcitonin < 0.05 TSH Urine Color Urine Appearance Urine pH Ur Specific [place] Urine Protein Urine Glucose (UA) Urine Ketones Urine Blood Urine Nitrite Urine Bilirubin Urine Urobilinogen Ur Leukocyte Esterase Urine WBC (Auto) Urine RBC (Auto) U Hyaline Cast (Auto) U Epithel Cells (Auto) Urine Bacteria (Auto) Ur Renal Epithelial Cell Granular Casts Nasal Screen MRSA (PCR) Urine Butalbital Urine Opiates Screen U Codeine Confrm GC/MS Ur Morphine (GC/MS) Ur Hydrocodone (GC/MS) Ur Norhydrocodone Ur Noroxycodone Urine Oxycodone (GC/MS) U Oxymorphone GC/MS Ur Methadone, Qual Ur Hydromorphone (GC/MS) Urine Barbiturates Phenytoin 3.2 L Ur Phencyclidine (PCP) U Amphetamin/Meth Scrn MDMA (Ecstasy) Screen Urine Amobarbital Urine Pentobarbital Urine Phenobarbital Urine Secobarbital U Benzodiazepines Scrn Ur Cocaine Metabolite U Marijuana (THC) Screen U Marijuana THC Carboxy Drug Screen Comment Ethyl Alcohol mg/dL < 3.0 COVID-19 Eval Order SARS-CoV-2 (PCR) Blood Type Antibody Screen Crossmatch 06/11/21 06/11/21 06/11/21 23:33 23:33 23:38 WBC RBC Hgb POC Hgb Hct POC Hct MCV MCH MCHC RDW Std Deviation RDW Coeff of Lola Plt Count MPV Immature Gran % (Auto) Neut % (Auto) Lymph % (Auto) [place] % (Auto) Eos % (Auto) Baso % (Auto) Neut # (Auto) Lymph # (Auto) [place] # (Auto) Eos # (Auto) Baso # (Auto) Immature Gran # (Auto) Absolute Nucleated RBC Nucleated RBC % (auto) Neutrophils % (Manual) Lymphocytes % (Manual) Monocytes % (Manual) Eosinophils % (Manual) Neutrophils # (Manual) Total Absolute Neuts Lymphocytes # (Manual) Total Abs Lymphocytes Monocytes # (Manual) Eosinophils # (Manual) Polychromasia Hypochromasia Anisocytosis Echinocytes PT INR APTT PTT Ratio Activ Coag Time Kaolin Fibrinogen Sample Site POC pH POC pCO2 POC pO2 POC HCO3 POC Total CO2 POC Base Excess POC ABG O2 Sat Navdeep Test VBG pH 7.02 L VBG pCO2 47 VBG pO2 24 VBG HCO3 12 VBG O2 Saturation < 60.0 VBG Base Excess -18.0 O2 Delivery Device POC O2 Rate POC FiO2 Tidal Volume PEEP POC Sodium Sodium POC Potassium Potassium Chloride Carbon Dioxide Anion Gap BUN Creatinine Est Cr Clr Drug Dosing Est GFR ( Amer) Est GFR (Non-Af Amer) BUN/Creatinine Ratio Glucose POC Glucose Lactate 15.6 H* Calcium Phosphorus Magnesium Total Bilirubin AST ALT Alkaline Phosphatase Troponin I NT-Pro-B Natriuret Pep Total Protein Albumin Globulin Albumin/Globulin Ratio Procalcitonin TSH Urine Color Urine Appearance Urine pH Ur Specific [place] Urine Protein Urine Glucose (UA) Urine Ketones Urine Blood Urine Nitrite Urine Bilirubin Urine Urobilinogen Ur Leukocyte Esterase Urine WBC (Auto) Urine RBC (Auto) U Hyaline Cast (Auto) U Epithel Cells (Auto) Urine Bacteria (Auto) Ur Renal Epithelial Cell Granular Casts Nasal Screen MRSA (PCR) Urine Butalbital Urine Opiates Screen U Codeine Confrm GC/MS Ur Morphine (GC/MS) Ur Hydrocodone (GC/MS) Ur Norhydrocodone Ur Noroxycodone Urine Oxycodone (GC/MS) U Oxymorphone GC/MS Ur Methadone, Qual Ur Hydromorphone (GC/MS) Urine Barbiturates Phenytoin Ur Phencyclidine (PCP) U Amphetamin/Meth Scrn MDMA (Ecstasy) Screen Urine Amobarbital Urine Pentobarbital Urine Phenobarbital Urine Secobarbital U Benzodiazepines Scrn Ur Cocaine Metabolite U Marijuana (THC) Screen U Marijuana THC Carboxy Drug Screen Comment Ethyl Alcohol mg/dL COVID-19 Eval Order SARS-CoV-2 (PCR) Blood Type O Positive Antibody Screen NEGATIVE Crossmatch See Detail 06/12/21 06/12/21 06/12/21 00:25 00:34 00:34 WBC RBC Hgb POC Hgb 10.2 L Hct POC Hct 30 L MCV MCH MCHC RDW Std Deviation RDW Coeff of Lola Plt Count MPV Immature Gran % (Auto) Neut % (Auto) Lymph % (Auto) [place] % (Auto) Eos % (Auto) Baso % (Auto) Neut # (Auto) Lymph # (Auto) [place] # (Auto) Eos # (Auto) Baso # (Auto) Immature Gran # (Auto) Absolute Nucleated RBC Nucleated RBC % (auto) Neutrophils % (Manual) Lymphocytes % (Manual) Monocytes % (Manual) Eosinophils % (Manual) Neutrophils # (Manual) Total Absolute Neuts Lymphocytes # (Manual) Total Abs Lymphocytes Monocytes # (Manual) Eosinophils # (Manual) Polychromasia Hypochromasia Anisocytosis Echinocytes PT INR APTT PTT Ratio Activ Coag Time Kaolin Fibrinogen Sample Site POC pH 6.89 L* POC pCO2 72 H POC pO2 118 H POC HCO3 14 L POC Total CO2 16 L POC Base Excess -20.0 L POC ABG O2 Sat Navdeep Test VBG pH VBG pCO2 VBG pO2 VBG HCO3 VBG O2 Saturation VBG Base Excess O2 Delivery Device POC O2 Rate POC FiO2 Tidal Volume PEEP POC Sodium 137 Sodium POC Potassium 4.3 Potassium Chloride Carbon Dioxide Anion Gap BUN Creatinine Est Cr Clr Drug Dosing Est GFR ( Amer) Est GFR (Non-Af Amer) BUN/Creatinine Ratio Glucose POC Glucose Lactate Calcium Phosphorus Magnesium Total Bilirubin AST ALT Alkaline Phosphatase Troponin I NT-Pro-B Natriuret Pep Total Protein Albumin Globulin Albumin/Globulin Ratio Procalcitonin TSH Urine Color Urine Appearance Urine pH Ur Specific [place] Urine Protein Urine Glucose (UA) Urine Ketones Urine Blood Urine Nitrite Urine Bilirubin Urine Urobilinogen Ur Leukocyte Esterase Urine WBC (Auto) Urine RBC (Auto) U Hyaline Cast (Auto) U Epithel Cells (Auto) Urine Bacteria (Auto) Ur Renal Epithelial Cell Granular Casts Nasal Screen MRSA (PCR) Urine Butalbital Urine Opiates Screen U Codeine Confrm GC/MS Ur Morphine (GC/MS) Ur Hydrocodone (GC/MS) Ur Norhydrocodone Ur Noroxycodone Urine Oxycodone (GC/MS) U Oxymorphone GC/MS Ur Methadone, Qual Ur Hydromorphone (GC/MS) Urine Barbiturates Phenytoin Ur Phencyclidine (PCP) U Amphetamin/Meth Scrn MDMA (Ecstasy) Screen Urine Amobarbital Urine Pentobarbital Urine Phenobarbital Urine Secobarbital U Benzodiazepines Scrn Ur Cocaine Metabolite U Marijuana (THC) Screen U Marijuana THC Carboxy Drug Screen Comment Ethyl Alcohol mg/dL COVID-19 Eval Order Covid19 at [facility] SARS-CoV-2 (PCR) NEGATIVE Blood Type Antibody Screen Crossmatch 06/12/21 06/12/21 06/12/21 01:07 01:07 01:07 WBC RBC Hgb POC Hgb 10.5 L Hct POC Hct 31 L MCV MCH MCHC RDW Std Deviation RDW Coeff of Lola Plt Count MPV Immature Gran % (Auto) Neut % (Auto) Lymph % (Auto) [place] % (Auto) Eos % (Auto) Baso % (Auto) Neut # (Auto) Lymph # (Auto) [place] # (Auto) Eos # (Auto) Baso # (Auto) Immature Gran # (Auto) Absolute Nucleated RBC Nucleated RBC % (auto) Neutrophils % (Manual) Lymphocytes % (Manual) Monocytes % (Manual) Eosinophils % (Manual) Neutrophils # (Manual) Total Absolute Neuts Lymphocytes # (Manual) Total Abs Lymphocytes Monocytes # (Manual) Eosinophils # (Manual) Polychromasia Hypochromasia Anisocytosis Echinocytes PT INR APTT PTT Ratio Activ Coag Time Kaolin Fibrinogen Sample Site POC pH 6.97 L* POC pCO2 66 H POC pO2 94 POC HCO3 15 L POC Total CO2 17 L POC Base Excess -16.0 L POC ABG O2 Sat 91.0 Navdeep Test VBG pH VBG pCO2 VBG pO2 VBG HCO3 VBG O2 Saturation VBG Base Excess O2 Delivery Device POC O2 Rate POC FiO2 Tidal Volume PEEP POC Sodium 137 Sodium POC Potassium 4.1 Potassium Chloride Carbon Dioxide Anion Gap BUN Creatinine Est Cr Clr Drug Dosing Est GFR ( Amer) Est GFR (Non-Af Amer) BUN/Creatinine Ratio Glucose POC Glucose Lactate Calcium Phosphorus Magnesium Total Bilirubin AST ALT Alkaline Phosphatase Troponin I NT-Pro-B Natriuret Pep Total Protein Albumin Globulin Albumin/Globulin Ratio Procalcitonin TSH Urine Color Yellow Urine Appearance Cloudy A Urine pH 5.0 Ur Specific [place] 1.015 Urine Protein 1+ H Urine Glucose (UA) Negative Urine Ketones Negative Urine Blood 3+ H Urine Nitrite Negative Urine Bilirubin Negative Urine Urobilinogen Negative Ur Leukocyte Esterase Negative Urine WBC (Auto) 10-30 H Urine RBC (Auto) 0-4 U Hyaline Cast (Auto) >30 H U Epithel Cells (Auto) >30 H Urine Bacteria (Auto) 1+ H Ur Renal Epithelial Cell Not Reportable Granular Casts 5-10 H Nasal Screen MRSA (PCR) Urine Butalbital Urine Opiates Screen Pos H U Codeine Confrm GC/MS Ur Morphine (GC/MS) Ur Hydrocodone (GC/MS) Ur Norhydrocodone Ur Noroxycodone Urine Oxycodone (GC/MS) U Oxymorphone GC/MS Ur Methadone, Qual Neg Ur Hydromorphone (GC/MS) Urine Barbiturates Pos H Phenytoin Ur Phencyclidine (PCP) Neg U Amphetamin/Meth Scrn Neg MDMA (Ecstasy) Screen Neg Urine Amobarbital Urine Pentobarbital Urine Phenobarbital Urine Secobarbital U Benzodiazepines Scrn Neg Ur Cocaine Metabolite Neg U Marijuana (THC) Screen Pos H U Marijuana THC Carboxy Drug Screen Comment Ethyl Alcohol mg/dL COVID-19 Eval Order SARS-CoV-2 (PCR) Blood Type Antibody Screen Crossmatch 06/12/21 06/12/21 06/12/21 01:07 02:38 02:40 WBC RBC Hgb POC Hgb Hct POC Hct MCV MCH MCHC RDW Std Deviation RDW Coeff of Lola Plt Count MPV Immature Gran % (Auto) Neut % (Auto) Lymph % (Auto) [place] % (Auto) Eos % (Auto) Baso % (Auto) Neut # (Auto) Lymph # (Auto) [place] # (Auto) Eos # (Auto) Baso # (Auto) Immature Gran # (Auto) Absolute Nucleated RBC Nucleated RBC % (auto) Neutrophils % (Manual) Lymphocytes % (Manual) Monocytes % (Manual) Eosinophils % (Manual) Neutrophils # (Manual) Total Absolute Neuts Lymphocytes # (Manual) Total Abs Lymphocytes Monocytes # (Manual) Eosinophils # (Manual) Polychromasia Hypochromasia Anisocytosis Echinocytes PT INR APTT PTT Ratio Activ Coag Time Kaolin 230 H Fibrinogen Sample Site POC pH 7.20 L POC pCO2 43 POC pO2 76 L POC HCO3 17 L POC Total CO2 18 L POC Base Excess -11.0 L POC ABG O2 Sat 91.0 Navdeep Test VBG pH VBG pCO2 VBG pO2 VBG HCO3 VBG O2 Saturation VBG Base Excess O2 Delivery Device POC O2 Rate POC FiO2 Tidal Volume PEEP POC Sodium Sodium POC Potassium Potassium Chloride Carbon Dioxide Anion Gap BUN Creatinine Est Cr Clr Drug Dosing Est GFR ( Amer) Est GFR (Non-Af Amer) BUN/Creatinine Ratio Glucose POC Glucose Lactate Calcium Phosphorus Magnesium Total Bilirubin AST ALT Alkaline Phosphatase Troponin I NT-Pro-B Natriuret Pep Total Protein Albumin Globulin Albumin/Globulin Ratio Procalcitonin TSH Urine Color Urine Appearance Urine pH Ur Specific [place] Urine Protein Urine Glucose (UA) Urine Ketones Urine Blood Urine Nitrite Urine Bilirubin Urine Urobilinogen Ur Leukocyte Esterase Urine WBC (Auto) Urine RBC (Auto) U Hyaline Cast (Auto) U Epithel Cells (Auto) Urine Bacteria (Auto) Ur Renal Epithelial Cell Granular Casts Nasal Screen MRSA (PCR) Urine Butalbital Pending Urine Opiates Screen U Codeine Confrm GC/MS Pending Ur Morphine (GC/MS) Pending Ur Hydrocodone (GC/MS) Pending Ur Norhydrocodone Pending Ur Noroxycodone Pending Urine Oxycodone (GC/MS) Pending U Oxymorphone GC/MS Pending Ur Methadone, Qual Ur Hydromorphone (GC/MS) Pending Urine Barbiturates Phenytoin Ur Phencyclidine (PCP) U Amphetamin/Meth Scrn MDMA (Ecstasy) Screen Urine Amobarbital Pending Urine Pentobarbital Pending Urine Phenobarbital Pending Urine Secobarbital Pending U Benzodiazepines Scrn Ur Cocaine Metabolite U Marijuana (THC) Screen U Marijuana THC Carboxy Pending Drug Screen Comment Pending Ethyl Alcohol mg/dL COVID-19 Eval Order SARS-CoV-2 (PCR) Blood Type Antibody Screen Crossmatch 06/12/21 06/12/21 06/12/21 03:45 04:36 04:36 WBC 17.06 H RBC 3.24 L Hgb 8.7 L POC Hgb Hct 29.2 L POC Hct MCV 90.1 MCH 26.9 MCHC 29.8 L RDW Std Deviation 64.4 H RDW Coeff of Lola 20.3 H Plt Count 225 MPV 9.1 Immature Gran % (Auto) 0.3 Neut % (Auto) 85.9 Lymph % (Auto) 4.8 [place] % (Auto) 8.9 Eos % (Auto) 0.0 Baso % (Auto) 0.1 Neut # (Auto) 14.65 H Lymph # (Auto) 0.82 L [place] # (Auto) 1.52 H Eos # (Auto) 0.00 Baso # (Auto) 0.02 Immature Gran # (Auto) 0.05 H Absolute Nucleated RBC 0.07 H Nucleated RBC % (auto) 0.4 Neutrophils % (Manual) Lymphocytes % (Manual) Monocytes % (Manual) Eosinophils % (Manual) Neutrophils # (Manual) Total Absolute Neuts Lymphocytes # (Manual) Total Abs Lymphocytes Monocytes # (Manual) Eosinophils # (Manual) Polychromasia 1+ Hypochromasia Present Anisocytosis Present Echinocytes PT INR APTT PTT Ratio Activ Coag Time Kaolin Fibrinogen Sample Site POC pH POC pCO2 POC pO2 POC HCO3 POC Total CO2 POC Base Excess POC ABG O2 Sat Navdeep Test VBG pH VBG pCO2 VBG pO2 VBG HCO3 VBG O2 Saturation VBG Base Excess O2 Delivery Device POC O2 Rate POC FiO2 Tidal Volume PEEP POC Sodium Sodium POC Potassium Potassium Chloride Carbon Dioxide Anion Gap BUN Creatinine Est Cr Clr Drug Dosing Est GFR ( Amer) Est GFR (Non-Af Amer) BUN/Creatinine Ratio Glucose POC Glucose Lactate 5.8 H* Calcium Phosphorus Magnesium Total Bilirubin AST ALT Alkaline Phosphatase Troponin I NT-Pro-B Natriuret Pep Total Protein Albumin Globulin Albumin/Globulin Ratio Procalcitonin TSH Urine Color Urine Appearance Urine pH Ur Specific [place] Urine Protein Urine Glucose (UA) Urine Ketones Urine Blood Urine Nitrite Urine Bilirubin Urine Urobilinogen Ur Leukocyte Esterase Urine WBC (Auto) Urine RBC (Auto) U Hyaline Cast (Auto) U Epithel Cells (Auto) Urine Bacteria (Auto) Ur Renal Epithelial Cell Granular Casts Nasal Screen MRSA (PCR) Negative Urine Butalbital Urine Opiates Screen U Codeine Confrm GC/MS Ur Morphine (GC/MS) Ur Hydrocodone (GC/MS) Ur Norhydrocodone Ur Noroxycodone Urine Oxycodone (GC/MS) U Oxymorphone GC/MS Ur Methadone, Qual Ur Hydromorphone (GC/MS) Urine Barbiturates Phenytoin Ur Phencyclidine (PCP) U Amphetamin/Meth Scrn MDMA (Ecstasy) Screen Urine Amobarbital Urine Pentobarbital Urine Phenobarbital Urine Secobarbital U Benzodiazepines Scrn Ur Cocaine Metabolite U Marijuana (THC) Screen U Marijuana THC Carboxy Drug Screen Comment Ethyl Alcohol mg/dL COVID-19 Eval Order SARS-CoV-2 (PCR) Blood Type Antibody Screen Crossmatch 06/12/21 06/12/21 06/12/21 04:36 05:14 06:07 WBC RBC Hgb POC Hgb Hct POC Hct MCV MCH MCHC RDW Std Deviation RDW Coeff of Lola Plt Count MPV Immature Gran % (Auto) Neut % (Auto) Lymph % (Auto) [place] % (Auto) Eos % (Auto) Baso % (Auto) Neut # (Auto) Lymph # (Auto) [place] # (Auto) Eos # (Auto) Baso # (Auto) Immature Gran # (Auto) Absolute Nucleated RBC Nucleated RBC % (auto) Neutrophils % (Manual) Lymphocytes % (Manual) Monocytes % (Manual) Eosinophils % (Manual) Neutrophils # (Manual) Total Absolute Neuts Lymphocytes # (Manual) Total Abs Lymphocytes Monocytes # (Manual) Eosinophils # (Manual) Polychromasia Hypochromasia Anisocytosis Echinocytes PT INR APTT PTT Ratio Activ Coag Time Kaolin Fibrinogen 431 H Sample Site L Brachial POC pH 7.48 H POC pCO2 33 L POC pO2 74 L POC HCO3 25 H POC Total CO2 26 POC Base Excess 1.0 POC ABG O2 Sat 96.0 H Navdeep Test Pass VBG pH VBG pCO2 VBG pO2 VBG HCO3 VBG O2 Saturation VBG Base Excess O2 Delivery Device Ventilator POC O2 Rate 28 POC FiO2 60 Tidal Volume 400 PEEP 8 POC Sodium Sodium 137 POC Potassium Potassium 3.6 D Chloride 100 Carbon Dioxide 27 Anion Gap 10.0 BUN 22 H Creatinine 0.82 Est Cr Clr Drug Dosing 55.3 Est GFR ( Amer) 92.7 Est GFR (Non-Af Amer) 80.0 BUN/Creatinine Ratio 27.0 H Glucose 251 H POC Glucose Lactate Calcium 7.6 L Phosphorus 3.0 Magnesium 1.9 Total Bilirubin AST ALT Alkaline Phosphatase Troponin I NT-Pro-B Natriuret Pep Total Protein Albumin Globulin Albumin/Globulin Ratio Procalcitonin TSH 2.170 Urine Color Urine Appearance Urine pH Ur Specific [place] Urine Protein Urine Glucose (UA) Urine Ketones Urine Blood Urine Nitrite Urine Bilirubin Urine Urobilinogen Ur Leukocyte Esterase Urine WBC (Auto) Urine RBC (Auto) U Hyaline Cast (Auto) U Epithel Cells (Auto) Urine Bacteria (Auto) Ur Renal Epithelial Cell Granular Casts Nasal Screen MRSA (PCR) Urine Butalbital Urine Opiates Screen U Codeine Confrm GC/MS Ur Morphine (GC/MS) Ur Hydrocodone (GC/MS) Ur Norhydrocodone Ur Noroxycodone Urine Oxycodone (GC/MS) U Oxymorphone GC/MS Ur Methadone, Qual Ur Hydromorphone (GC/MS) Urine Barbiturates Phenytoin Ur Phencyclidine (PCP) U Amphetamin/Meth Scrn MDMA (Ecstasy) Screen Urine Amobarbital Urine Pentobarbital Urine Phenobarbital Urine Secobarbital U Benzodiazepines Scrn Ur Cocaine Metabolite U Marijuana (THC) Screen U Marijuana THC Carboxy Drug Screen Comment Ethyl Alcohol mg/dL COVID-19 Eval Order SARS-CoV-2 (PCR) Blood Type Antibody Screen Crossmatch 06/12/21 06/12/21 06/12/21 11:41 11:41 11:46 WBC RBC Hgb 9.8 L POC Hgb Hct 30.9 L POC Hct MCV MCH MCHC RDW Std Deviation RDW Coeff of Lola Plt Count MPV Immature Gran % (Auto) Neut % (Auto) Lymph % (Auto) [place] % (Auto) Eos % (Auto) Baso % (Auto) Neut # (Auto) Lymph # (Auto) [place] # (Auto) Eos # (Auto) Baso # (Auto) Immature Gran # (Auto) Absolute Nucleated RBC Nucleated RBC % (auto) Neutrophils % (Manual) Lymphocytes % (Manual) Monocytes % (Manual) Eosinophils % (Manual) Neutrophils # (Manual) Total Absolute Neuts Lymphocytes # (Manual) Total Abs Lymphocytes Monocytes # (Manual) Eosinophils # (Manual) Polychromasia Hypochromasia Anisocytosis Echinocytes PT INR APTT PTT Ratio Activ Coag Time Kaolin Fibrinogen Sample Site POC pH POC pCO2 POC pO2 POC HCO3 POC Total CO2 POC Base Excess POC ABG O2 Sat Navdeep Test VBG pH VBG pCO2 VBG pO2 VBG HCO3 VBG O2 Saturation VBG Base Excess O2 Delivery Device POC O2 Rate POC FiO2 Tidal Volume PEEP POC Sodium Sodium POC Potassium Potassium Chloride Carbon Dioxide Anion Gap BUN Creatinine Est Cr Clr Drug Dosing Est GFR ( Amer) Est GFR (Non-Af Amer) BUN/Creatinine Ratio Glucose POC Glucose 128 H Lactate Calcium Phosphorus Magnesium Total Bilirubin AST ALT Alkaline Phosphatase Troponin I 11.700 H* NT-Pro-B Natriuret Pep Total Protein Albumin Globulin Albumin/Globulin Ratio Procalcitonin TSH Urine Color Urine Appearance Urine pH Ur Specific [place] Urine Protein Urine Glucose (UA) Urine Ketones Urine Blood Urine Nitrite Urine Bilirubin Urine Urobilinogen Ur Leukocyte Esterase Urine WBC (Auto) Urine RBC (Auto) U Hyaline Cast (Auto) U Epithel Cells (Auto) Urine Bacteria (Auto) Ur Renal Epithelial Cell Granular Casts Nasal Screen MRSA (PCR) Urine Butalbital Urine Opiates Screen U Codeine Confrm GC/MS Ur Morphine (GC/MS) Ur Hydrocodone (GC/MS) Ur Norhydrocodone Ur Noroxycodone Urine Oxycodone (GC/MS) U Oxymorphone GC/MS Ur Methadone, Qual Ur Hydromorphone (GC/MS) Urine Barbiturates Phenytoin Ur Phencyclidine (PCP) U Amphetamin/Meth Scrn MDMA (Ecstasy) Screen Urine Amobarbital Urine Pentobarbital Urine Phenobarbital Urine Secobarbital U Benzodiazepines Scrn Ur Cocaine Metabolite U Marijuana (THC) Screen U Marijuana THC Carboxy Drug Screen Comment Ethyl Alcohol mg/dL COVID-19 Eval Order SARS-CoV-2 (PCR) Blood Type Antibody Screen Crossmatch (1) Respiratory failure with hypoxia and hypercapnia Chronicity: acute on chronic Qualified Code(s): J96.21 - Acute and chronic respiratory failure with hypoxia; J96.22 - Acute and chronic respiratory failure with hypercapnia
[2021-06-12] MEDS ORDERED: ROCURONIUM BROMIDE 10 MG/ML 5 ML VIAL IV ONE (14:32)
[2021-06-12] MEDS ORDERED: ETOMIDATE 2 MG/ML 20 ML VIAL IV ONE (14:32)
[2021-06-12 16:25] LABS: Hematocrit (blood only) 34.8 % (37-47); Hemoglobin 10.9 g/dL (12.0-16.0)
[2021-06-12] MEDS: CEFEPIME 2,000 MG in SYRINGE 0 ML IV SCH (17:08)
[2021-06-12] MEDS ORDERED: ICU ELECTROLYTE REPLACEMENT PROTOCOL SCH (18:00)
[2021-06-12] MEDS: ICU ELECTROLYTE REPLACEMENT PROTOCOL SCH (19:55)
[2021-06-12] MEDS: ATORVASTATIN 40 MG TAB PO SCH (21:09)
--- NOTE | 2021-06-12 21:30 | Hospitalist Progress Note ---
Date of Service June 12, 2021 Assessment & Plan (1) Non-ST elevation [place] (NSTEMI): Plan: ASSESSMENT AND PLAN: This is a 55-year-old female who presents with agitation, chest pain, pain all over and found to be with non-ST elevated myocardial infarction and congestive heart failure. 1. Respiratory Distress: The patient is s/p intubation and mechanical ventilation, possibly secondary to congestive heart failure, received Lasix in ER -- still intubated vent management per ICU 2. Non-ST elevated myocardial infarction: Status post cardiac catheterization and stent to the proximal LAD lesion, post-cath care as per cardiology. Ischemic Cardiomyopathy -- s/p Cardiac Cath 06/[address] Hinojosa: 1. Severe multivessel vessel coronary artery disease -90% possibly acute proximal LAD stenosis. Patent mid LAD stent 100% chronic mid RCA occlusion. Distal vessel fills via [id number] collaterals. 2. Elevated intracardiac filling pressure. LVEDP 34 3. Severe obstructive abdominal aortic disease (unable to pass 5 Fr catheter across stenosis). 4. Successful PCI of proximal to mid LAD with single drug-eluting stent (3.0 x 18 mm Soham; postdilated with 3.5 NC, overlaps proximal aspect of prior stent). on ASA, Plavix, Imdur, Lipitor 3. Anemia, possible GI bleed -- Hemoglobin was 5.4 last admission, required 4 units of PRBCs. Currently hemoglobin is 8.7. ER started on Protonix drip today which will continue. -- s/p 1 unit pRBC given -- Hg 10 -- GI not recommending EGD/Colonoscopy due to above recommending Protonix drip x 3 days 4. Possible urinary tract infection, possible pneumonia. -- ff up cultures 5. Elevated lactic acid and acidosis: Most likely from the acute coronary syndrome and resp distress. -- improved 6. The patient is on chronic pain medication. The patient is on high dose of pain medication at home, which will be held. Will place on IV Dilaudid p.r.n. as the patient is currently intubated and sedated and getting propofol. 7. History of coronary artery disease. History of LAD stenting in the past as well as vasospastic angina 8. History of VT arrest due to coronary artery vasospasm versus acquired QT prolongation possible of azithromycin exposure, status post single chamber AICD. 9. History of peripheral vascular disease, superficial femoral artery occlusion, left subclavian artery stenosis. on aspirin and Plavix. 10. History of myotonic muscular dystrophy. PT, OT when stable. 11. History of pulmonary embolism. Coumadin was discontinued due to GI bleed in 2019. 12. History of left carotid endarterectomy in 2015. 13. History of chronic obstructive pulmonary disease: Continue her home inhalers. 14. History of seizures: On Keppra and phenytoin, which will be changed to IV.Dose adjustment of keppra per Pharmacy for renal function. 15. History of diastolic congestive heart failure: per above 16. History of hypertension: 17. History of deep venous thrombosis prophylaxis: Will place on sequential compression devices for now because of possible gastrointestinal bleed. 18. Underweight -- Nutrion consult Admission and Anticipated Discharge Date Admission Date: June 12, 2021 Subjective FF UP FOR NSTEMI, ETC intubated, on mech vent sedated not in distress no note of melena/hematochezia no other issues per management assistant of Systems Review of Systems: unable to be determined due to being intubated Physical Exam Physical Exam: General- not in distress,breathing with no effort or accessory muscle use on mech vent, sedated Head- atraumatic Eyes- PERRL, EOMI, anicteric ENT- oropharynx clear Neck- supple, no JVD, no adenopathy, no thyromegaly; carotids +2/2, no bruits appreciated Lungs- (+) mild rales anteriorly Heart- normal rate, regular rhythm; no murmur, no gallop, no rub appreciated Abdomen- normal bowel sounds, nondistended, soft, nontender, no masses or hepatosplenomegaly Extremities- no pretibial edema, no calf tenderness; peripheral pulses intact Neuro- sedated Skin- warm & dry Results & Data Results & Data ([facility]) Vital Signs (Past 12 Hours) Vital Signs Temp Pulse Resp BP BP Pulse Ox 06/12/21 19:30 100 H 33 H 96 06/12/21 18:00 37.6 C H 98 H 36 H 148/97 H 96 06/12/21 17:24 133/82 06/12/21 17:00 37.6 C H 97 H 26 H 145/100 H 95 06/12/21 16:00 37.8 C H 93 H 26 H 145/90 H 95 06/12/21 15:15 91 H 33 H 94 06/12/21 15:00 37.8 C H 89 30 H 94 06/12/21 14:00 37.2 C 91 H 46 H 144/93 H 98 06/12/21 13:00 37.3 C 90 33 H 141/90 H 98 06/12/21 12:00 37.2 C 90 32 H 146/95 H 100 06/12/21 11:00 37 C 78 35 H 135/92 100 06/12/21 10:35 84 31 H 100 06/12/21 10:24 37.3 C 78 24 102/67 84 L 06/12/21 10:00 37.1 C 85 28 H 115/85 95 06/12/21 09:45 37.1 C 86 27 H 110/78 88 L all noted and reviewed including below
[2021-06-12 22:38] LABS: Hematocrit (blood only) 34.8 % (37-47); Hemoglobin 10.9 g/dL (12.0-16.0)
[2021-06-12 23:18] LABS: BUN Creatinine Ratio 40.3 (10-20); Calcium 8.3 mg/dl (8.5-10.1); Creatinine Clr Calc Pharmacy 64.2 ml/min; Est GFR (African American) 110.4 ml/min; Est GFR (Non-African American) 95.2 ml/min; Potassium 4.2 mmol/L (3.5-5.1)
[2021-06-13] MEDS: propofoL 1,000 MG/100 ML VIAL IV SCH ×4 (00:59→17:40)
[2021-06-13] MEDS: PANTOprazole 40 MG in DEXTROSE 5% 100 ML IV SCH ×5 (00:59→20:54)
[2021-06-13] MEDS: MIDAZOLAM HCL 1 MG/ML 2ML VIAL IV PRN ×2 (01:30→06:00)
[2021-06-13] MEDS: PRAZOSIN HCL 1 MG CAP PO SCH ×3 (01:55→20:56)
[2021-06-13] MEDS: CEFEPIME 2,000 MG in SYRINGE 0 ML IV SCH (03:56)
[2021-06-13] MEDS: fentaNYL citrate 100 MCG/2 ML VIAL IV PRN ×3 (04:13→14:07)
[2021-06-13 04:39] LABS: Hematocrit (blood only) 29.5 % (37-47); Hemoglobin 9.6 g/dL (12.0-16.0); Immature Granulocytes # (auto) 0.03 K/uL (0.00-0.02); Immature Granulocytes % (auto) 0.2 %; Lymphocytes # (auto) 0.77 K/uL (1.2-3.4); Lymphocytes % (auto) 5.4 %; Mean Corpuscular Hemoglobin 27.9 pg (25-34); Mean Corpuscular Hgb Conc 32.5 g/dL (32-36); Mean Corpuscular Volume 85.8 fL (80-100); Mean Platelet Volume 9.9 fL (7.4-10.4); Monocytes # (auto) 1.17 K/uL (0.11-0.59); Monocytes % (auto) 8.2 %; Neutrophils # (auto) 12.33 K/uL (1.4-6.5); Neutrophils % (auto) 86.2 %; Nucleated RBC # (auto) 0.11 K/uL (0-0); Nucleated RBC % (auto) 0.7 %; Platelet Count 183 K/uL (130-400); RDW Coefficient of Variation 20.5 % (11.5-14.5); RDW Standard Deviation 60.7 fL (36.4-46.3); Red Blood Count 3.44 M/uL (4.2-5.4)
[2021-06-13 05:05] LABS: BUN Creatinine Ratio 42.3 (10-20); Calcium 7.6 mg/dl (8.5-10.1); Creatinine Clr Calc Pharmacy 72.4 ml/min; Est GFR (African American) 116.2 ml/min; Est GFR (Non-African American) 100.3 ml/min; Magnesium 2.1 mg/dl (1.8-2.4); Phosphorus 4.6 mg/dl (2.5-4.9); Potassium 4.4 mmol/L (3.5-5.1)
[2021-06-13 05:24] LABS: Anisocytosis Present; Echinocytes 1+; Macrocytosis Present; Polychromasia 1+
--- NOTE | 2021-06-13 06:24 | Critical Care Progress Note ---
Date of Service June 13, 2021 Assessment & Plan (1) Non-ST elevation [place] (NSTEMI): Plan: Reason Critically Ill: 55-year-old female presents to the ICU following event of acute coronary syndrome resulting in acute HFrEF with hypoxic hypercapnic respiratory failure requiring emergent intubation. Now post cardiac catheter she received a single drug-eluting stent to the proximal LAD for 90% stenosis and is also being monitored for a GIB. She is hemodynamically stable but still requires intubation. Neuro - Sedation: Propofol -- will ween given plan to extubate Seizure disordercontinue Keppra, phenytoin, primidone Polyneuropathycontinue Neurontin Cardiac - Acute coronary syndromepatient presented with NSTEMI, acute HFrEF, respiratory distress -Status post successful PCI with single AKIKO to the proximal LAD for 90% stenosis -Noted during cath to have 100% occlusion of RCA with collateral flow -Continue ASA, plavix, atorvastatin 80, ACEI -Hold diltiazem, home nitrates in setting of acute HFrEF -TTE as below Acute HFrEF-in setting of NSTEMI, as above -TTE demonstrating severe LV dysfunction with LVEF 25-30%, akinesis of inferior wall and inferior septum, hypokinesis of apex/posterinferior mixon -Continue Lasix 40mg IV b.i.d. -- add another dose now. Goal is net negative -500cc -Continue holding home diltiazem in setting of acute HFrEF - appreciate cardiology input -CAD/ACS care, as above Prinzmetal angina- as above, holding diltiazem Tachycardia-Resolved -Overnight noted to have tachycardia between 100-110, Tm 38.6 -Suspect possibly secondary to diuresis versus febrile reaction Respiratory - Acute hypoxic hypercapnic respiratory failuresecondary primarily d/t acute HFrEF from ACS, possibly with additive component of COPD -Attempt extubation and placement on CPAP given improvements on the vent and improvements on CXR, blood gas -Given +rhonchi that are persisting, known COPD/tobacco use: add DuoNeb q.i.d., budesonide b.i.d., and formoterol b.i.d. -Lower concern for PE given RV function on TTE, improvements with diuresis. Lower suspicion for PNA. -Continue Lasix GI - GI bleedpatient with positive occult stool in the ED and multiple melanotic stools -Patient at higher risk for PUD, mesenteric ischemia given PAD and ACS on presentation -Recently admitted for anemia requiring 4U pRBC in May - did not return for outpatient endoscopy -Repeat Hgb at 9.6 this AM (from 10.9) yesterday after 1U pRBC. VSS. -Continue Protonix gtt -Continue DAPT in setting of ACS, will hold anticoagulation -GI consulted - appreciate insight and recommendations, candidacy for scope RENAL/LYTES - Respiratory alkalosis with metabolic alkalosis - suspect primarily due to respiratory rate at this point, alongside posthypercapnic renal effect. CPAP and respiratory therapies as above. Will continue to monitor. - Foleystrict I's and O's ENDO - No history of diabetes, ICU hyperglycemic protocol No history of thyroid disease HEME - Anemiasecondary to acute blood loss from GI bleed -Mild drop in Hgb appreciated - 10.9 --> 9.6 today -Suspect secondary to GIB, as above -s/p 1U pRBC on 06/12 -Hemodynamically stable at this time. Continue to monitor. GI following as above. -Transfuse Hgb < 8 ID - No clear source of infection at this time. Previous concerns for PNA - however, CXR greatly improved with diuresis. White count improving. Procal negative. BCX showing no growth to date. Suspect fevers are post-ACS. Will stop ABX. 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 Discussed on multidisciplinary rounds and with overnight critical care REECE as well as with family practice resident. The patient was doing well and passed a spontaneous breathing trial early this morning however shortly thereafter she was placed on BiPAP due to shortness of breath and tachypnea. She failed BiPAP and was subsequently reintubated. Follow-up chest x-ray demonstrates some residual pulmonary edema. She has been stable with regard to her hemoglobin and hematocrit. No evidence of ongoing GI bleeding. Her cardiovascular status is stable. She does have likely underlying significant COPD and will place her on a trial of steroids as well as aggressive bronchodilators and reassess in 24 hours for liberation from mechanical ventilator. Patient remains critically ill. A total of 50 minutes critical care time was spent evaluation management stabilization of this patient Subjective No acute concerns from nursing overnight. One more meWas intermittently tachycardic from 100-110s with Tm 38.6. Resting comfortably. Review of Systems Review of Systems: Unobtainable due to endotracheal tube Physical Exam Physical Exam: General: 55yoF on sedation and MV who is not responsive to verbal or painful stimuli. HEENT: NCAT. Eyes - Sclera are white, anicteric, and without injection. PERRL. Mouth - MMM with no tonsillar edema or exudates. Neck - No JVD appreciated. Cardiac: Normal rate and regular rhythm; S1 and S2 present with no murmurs, rub s, or gallops. Pulmonary: Intubated and mechanically ventilated. Lungs are rhonchus bilaterally, still mildly diminished at the bases. Abdominal: Hypoactive bowel sounds. Abdomen was soft, nondistended. No facial grimacing with palpation. Extremities: Upper and lower extremities are warm and well perfused. Radial and dorsalis pedis pulses were 2+ b/l. Capillary refill assessed in UE was < 3 sec. No peripheral edema. Results & Data Results & Data ([facility]) Vital Signs (Past 12 Hours) Vital Signs Temp Pulse Resp BP Pulse Ox 06/13/21 04:00 38.2 C H 100 H 35 H 136/88 97 06/13/21 03:10 94 H 32 H 97 06/13/21 03:00 38.4 C H 94 H 32 H 128/83 97 06/13/21 02:00 38.4 C H 99 H 33 H 129/80 94 06/13/21 01:00 38.1 C H 98 H 32 H 132/81 98 06/13/21 00:00 37.7 C H 103 H 37 H 149/89 H 98 06/12/21 23:05 92 H 31 H 97 06/12/21 23:00 37.4 C 92 H 33 H 127/81 97 06/12/21 22:00 37.5 C 90 33 H 131/82 97 06/12/21 21:00 37.2 C 101 H 32 H 149/91 H 96 06/12/21 20:00 37.2 C 101 H 32 H 151/93 H 96 06/12/21 19:30 100 H 33 H 96 06/12/21 19:00 37.3 C 98 H 32 H 147/98 H 96 (1) CHF (congestive heart failure) Heart failure chronicity: acute Heart failure type: unspecified Qualified Code(s): I50.9 - Heart failure, unspecified (2) Anemia Anemia type: other cause Other causes of anemia: other cause, not classified Qualified Code(s): D64.89 - Other specified anemias (3) Respiratory failure with hypoxia and hypercapnia Chronicity: acute on chronic Qualified Code(s): J96.21 - Acute and chronic respiratory failure with hypoxia; J96.22 - Acute and chronic respiratory failure with hypercapnia (4) Syncope Syncope type: unspecified Qualified Code(s): R55 - Syncope and collapse
[2021-06-13] MEDS: ICU ELECTROLYTE REPLACEMENT PROTOCOL SCH ×2 (06:42→16:57)
--- NOTE | 2021-06-13 07:58 | Electrocardiogram Report ---
Test Reason : Blood Pressure : / mmHG Vent. Rate : 096 BPM Atrial Rate : 096 BPM P-R Int : 198 ms QRS Dur : 096 ms QT Int : 364 ms P-R-T Axes : 076 060 246 degrees QTc Int : 459 ms Poor data quality, interpretation may be adversely affected Normal sinus rhythm Possible Left atrial enlargement Possible Inferior infarct , age undetermined Possible Anterior infarct , age undetermined Abnormal ECG When compared with ECG of 18-MAY-2021 07:07, Significant changes have occurred Confirmed by Hector Paige [id number]) on 06/12/2021 12:25:09 PM Also confirmed by Hector Paige ([id number]), editor producer Josette Soriano ([id number]) on 06/13/2021 7:57:22 AM Referred By: REFERRED SELF Confirmed By:Hector Paige
[2021-06-13] MEDS: ALBUT/IPRATROP 3MG/0.5MG NEB 3 ML VIAL NEB PRN ×2 (08:00→20:08)
--- NOTE | 2021-06-13 08:03 | XRay Report ---
XR chest 1V portable CLINICAL HISTORY: Shortness of breath. Respiratory failure. COMPARISON STUDY: Chest radiograph June 12, 2021 at 9:54 AM. FINDINGS: Tip of endotracheal tube is 3.7 cm above the vaughn. Left subclavian pacer/AICD is in place . Tip of nasogastric tube is below the lower aspect of this image. Cardiac size is normal. Mediastina l contours are normal. There is no pneumothorax. There are trace bilateral pleural effusions. Interst itial thickening and bilateral opacities have slightly improved. IMPRESSION: 1. Satisfactory positioning of the endotracheal tube. 2. Interstitial thickening which favors mild pulmonary edema. Interval improvement in mild bilateral opacities since prior exam. 3. Trace bilateral pleural effusions. ACT 112: Negative or not required by law. Electronically signed by: Sergio Osman M.D. 06/13/2021 8:01 AM
[2021-06-13] MEDS: FERROUS SULFATE 325 MG TAB PO SCH ×2 (08:04→17:40)
[2021-06-13] MEDS: ASPIRIN 81 MG ECTAB PO SCH (08:04)
[2021-06-13] MEDS: FLUTICASONE PROPIONATE NA SPR 16 GM BTL SCH (08:04)
[2021-06-13] MEDS ORDERED: ALBUT/IPRATROP 3MG/0.5MG NEB 3 ML VIAL ONE (08:04)
[2021-06-13] MEDS: GABAPENTIN 600 MG TAB PO SCH ×3 (08:05→20:55)
[2021-06-13] MEDS: GABAPENTIN 300 MG CAP PO SCH ×3 (08:05→20:55)
[2021-06-13] MEDS: PHENYTOIN 100 MG in SYRINGE 0 ML IV SCH ×3 (08:10→21:31)
[2021-06-13] MEDS: FUROSEMIDE 40 MG in SYRINGE 0 ML IV SCH ×2 (08:10→16:56)
[2021-06-13] MEDS: levETIRAcetam 1,000 MG in 0.9 % SODIUM CHLORIDE 100 ML IV SCH ×2 (08:11→20:55)
[2021-06-13] MEDS: POTASSIUM CHLORIDE CRTAB 20 MEQ TABCR PO SCH (08:11)
[2021-06-13] MEDS: PRIMIDONE 50 MG TAB PO SCH ×3 (08:11→20:56)
[2021-06-13] MEDS: lisinopril 10 MG TAB PO SCH (08:12)
[2021-06-13] MEDS: LORATADINE 10 MG TAB PO SCH (08:12)
[2021-06-13] MEDS: SODIUM CHLORIDE 0.9% 10ML FLUSH IV SCH ×3 (08:12→20:55)
[2021-06-13 08:25] LABS: iSTAT Art Bld Gas pCO2 Correct 33 mmHg (35-46); iSTAT Art Bld Gas pH Corrected 7.505 (7.35-7.45); iSTAT Arterial Blood Gas HCO3 26 meg/L (19-24); iSTAT Arterial Blood Gas pCO2 32 mmHg (35-46); iSTAT Arterial Blood Gas pH 7.51 (7.35-7.45); iSTAT Arterial Blood Gas pO2 72 mmHg (80-95); iSTAT Arterial Blood Gas pO2 C 75; iSTAT Carbon Dioxide 27 mmol/L (24-31); iSTAT FiO2 40 %; iSTAT Hematocrit 28 % (37-47); iSTAT Hemoglobin 9.5 g/dl (12.0-16.0); iSTAT Potassium 3.6 mmol/L (3.3-5.0); iSTAT Site L Brachial; iSTAT Sodium 135 mmol/L (135-144)
--- NOTE | 2021-06-13 09:19 | Gastroenterology Progress Note ---
Date of Service June 13, 2021 Assessment & Plan (1) GI bleed: Plan: 55 year old critically ill female admitted w/ acute heart failure, ACS s/p LAD stenting last evening GI asked to evaluate for anemia, dark stools yesterday. Transfused x 1 unit RBC, HGB 9.6, BUN 27, no futher BM documented Please continue conservative measures NPO IV PPI bolus and drip for 72 hours Then can covert to IV PPI BID Trend HGB Transfuse RBCS per primary team Monitor and document stools EGD deferred at this time, could re-evaluate with any acute clinical changes Thank you for allowing us to participate in the care of this patient. Please call with any acute changes, questions or concerns. Please see addendum below with additional recommendation from my supervising physician. Admission and Anticipated Discharge Date Admission Date: June 12, 2021 Supervising Physician Co-Signing Physician Notes I have seen and examined the patient with KIRSTIE Hui whose note reflects our findings and plan. Patient admitted with ACS and CHF requiring emergent cath and stening. Remains intubated and sedated. noted to have melena. Was hospitalized with hgb of 5 several weeks ago. Did not come for outpatient scopes. Patient got blood. H/H stable. On PPI gtt. given her cardiac events, would continue with conservative mgt with continued PPI gtt and close monitoring of H/H and platelets. Discussed with primary service Subjective Pt was seen and evaluated. Remains intubated. Had 1 unit RBCs HGB stable No further documentation of BMs Review of Systems Review of Systems: Unobtainable due to endotracheal tube Physical Exam Constitutional: WD/WN, vitals as above Neck: trachea midline, no thyromegaly Respiratory: normal respiratory effort, lungs clear to auscultation Cardiovascular: Rate/Rhythm: regular rate Gastrointestinal (Abdomen): normal bowel sounds, soft, nontender, no hepatosplenomegaly Skin: no rashes, warm and dry Results & Data ([facility]) Vital Signs (Past 12 Hours) Vital Signs Temp Pulse Resp BP Pulse Ox 06/13/21 07:41 90 30 H 97 06/13/21 06:00 37.1 C 101 H 35 H 101/63 95 06/13/21 05:00 37.3 C 101 H 15 98/61 L 94 06/13/21 04:00 38.2 C H 100 H 35 H 136/88 97 06/13/21 03:10 94 H 32 H 97 06/13/21 03:00 38.4 C H 94 H 32 H 128/83 97 06/13/21 02:00 38.4 C H 99 H 33 H 129/80 94 06/13/21 01:00 38.1 C H 98 H 32 H 132/81 98 06/13/21 00:00 37.7 C H 103 H 37 H 149/89 H 98 06/12/21 23:05 92 H 31 H 97 06/12/21 23:00 37.4 C 92 H 33 H 127/81 97 06/12/21 22:00 37.5 C 90 33 H 131/82 97 Laboratory Results 06/13/21 06/13/21 06/13/21 Range/Units 07:57 04:28 04:28 WBC 14.30 H (4.8-10.8) K/uL RBC 3.44 L (4.2-5.4) M/uL Hgb 9.6 L (12.0-16.0) g/dL POC Hgb 9.5 L (12.0-16.0) g/dl Hct 29.5 L (37-47) % POC Hct 28 L (37-47) % MCV 85.8 (80-100) fL MCH 27.9 (25-34) pg MCHC 32.5 (32-36) g/dL RDW Std Deviation 60.7 H (36.4-46.3) fL RDW Coeff of Lola 20.5 H (11.5-14.5) % Plt Count 183 (130-400) K/uL MPV 9.9 (7.4-10.4) fL Immature Gran % (Auto) 0.2 % Neut % (Auto) 86.2 % Lymph % (Auto) 5.4 % [place] % (Auto) 8.2 % Eos % (Auto) 0.0 % Baso % (Auto) 0.0 % Neut # (Auto) 12.33 H (1.4-6.5) K/uL Lymph # (Auto) 0.77 L (1.2-3.4) K/uL [place] # (Auto) 1.17 H (0.11-0.59) K/uL Eos # (Auto) 0.00 (0-0.5) K/uL Baso # (Auto) 0.00 (0-0.2) K/uL Immature Gran # (Auto) 0.03 H (0.00-0.02) K/uL Absolute Nucleated RBC 0.11 H (0-0) K/uL Nucleated RBC % (auto) 0.7 % Polychromasia 1+ Anisocytosis Present Macrocytosis Present Echinocytes 1+ Sample Site L Brachial POC pH 7.51 H* (7.35-7.45) POC pCO2 32 L (35-46) mmHg POC pO2 72 L (80-95) mmHg POC HCO3 26 H (19-24) cornelio/L POC Total CO2 27 (24-31) mmol/L POC Base Excess 3.0 H (-9-1.8) cornelio/L ABG pH (Temp Correct) 7.505 H* (7.35-7.45) ABG pCO2 (Temp Corrct 33 L (35-46) mmHg POC ABG pO2 at Pt Temp 75 POC ABG O2 Sat 96.0 H (90-95) % Navdeep Test NA O2 Delivery Device Ventilator POC O2 Rate 26 POC FiO2 40 % Tidal Volume 350 PEEP 5 POC Sodium 135 (135-144) mmol/L Sodium 132 L (136-145) mmol/L POC Potassium 3.6 (3.3-5.0) mmol/L Potassium 4.4 (3.5-5.1) mmol/L Chloride 99 (98-107) mmol/L Carbon Dioxide 25 (21-32) mmol/L Anion Gap 8.0 (3-11) BUN 27 H (7-18) mg/dl Creatinine 0.63 (0.6-1.2) mg/dl Est Cr Clr Drug Dosing 72.4 ml/min Est GFR ( Amer) 116.2 ml/min Est GFR (Non-Af Amer) 100.3 ml/min BUN/Creatinine Ratio 42.3 H (10-20) Glucose 191 H (70-99) mg/dl POC Glucose (70-99) mg/dl Calcium 7.6 L (8.5-10.1) mg/dl Phosphorus 4.6 D (2.5-4.9) mg/dl Magnesium 2.1 (1.8-2.4) mg/dl Troponin I (0-0.045) ng/ml Crossmatch 06/13/21 06/12/21 06/12/21 Range/Units 00:33 22:24 22:24 WBC (4.8-10.8) K/uL RBC (4.2-5.4) M/uL Hgb 10.9 L (12.0-16.0) g/dL POC Hgb (12.0-16.0) g/dl Hct 34.8 L (37-47) % POC Hct (37-47) % MCV (80-100) fL MCH (25-34) pg MCHC (32-36) g/dL RDW Std Deviation (36.4-46.3) fL RDW Coeff of Lola (11.5-14.5) % Plt Count (130-400) K/uL MPV (7.4-10.4) fL Immature Gran % (Auto) % Neut % (Auto) % Lymph % (Auto) % [place] % (Auto) % Eos % (Auto) % Baso % (Auto) % Neut # (Auto) (1.4-6.5) K/uL Lymph # (Auto) (1.2-3.4) K/uL [place] # (Auto) (0.11-0.59) K/uL Eos # (Auto) (0-0.5) K/uL Baso # (Auto) (0-0.2) K/uL Immature Gran # (Auto) (0.00-0.02) K/uL Absolute Nucleated RBC (0-0) K/uL Nucleated RBC % (auto) % Polychromasia Anisocytosis Macrocytosis Echinocytes Sample Site POC pH (7.35-7.45) POC pCO2 (35-46) mmHg POC pO2 (80-95) mmHg POC HCO3 (19-24) cornelio/L POC Total CO2 (24-31) mmol/L POC Base Excess (-9-1.8) cornelio/L ABG pH (Temp Correct) (7.35-7.45) ABG pCO2 (Temp Corrct (35-46) mmHg POC ABG pO2 at Pt Temp POC ABG O2 Sat (90-95) % Navdeep Test O2 Delivery Device POC O2 Rate POC FiO2 % Tidal Volume PEEP POC Sodium (135-144) mmol/L Sodium 137 (136-145) mmol/L POC Potassium (3.3-5.0) mmol/L Potassium 4.2 D (3.5-5.1) mmol/L Chloride 102 (98-107) mmol/L Carbon Dioxide 24 (21-32) mmol/L Anion Gap 11.0 (3-11) BUN 29 H (7-18) mg/dl Creatinine 0.71 (0.6-1.2) mg/dl Est Cr Clr Drug Dosing 64.2 ml/min Est GFR ( Amer) 110.4 ml/min Est GFR (Non-Af Amer) 95.2 ml/min BUN/Creatinine Ratio 40.3 H (10-20) Glucose 132 H (70-99) mg/dl POC Glucose 126 H (70-99) mg/dl Calcium 8.3 L (8.5-10.1) mg/dl Phosphorus (2.5-4.9) mg/dl Magnesium (1.8-2.4) mg/dl Troponin I (0-0.045) ng/ml Crossmatch 06/12/21 06/12/21 06/12/21 Range/Units 15:53 15:53 11:46 WBC (4.8-10.8) K/uL RBC (4.2-5.4) M/uL Hgb 10.9 L (12.0-16.0) g/dL POC Hgb (12.0-16.0) g/dl Hct 34.8 L (37-47) % POC Hct (37-47) % MCV (80-100) fL MCH (25-34) pg MCHC (32-36) g/dL RDW Std Deviation (36.4-46.3) fL RDW Coeff of Lola (11.5-14.5) % Plt Count (130-400) K/uL MPV (7.4-10.4) fL Immature Gran % (Auto) % Neut % (Auto) % Lymph % (Auto) % [place] % (Auto) % Eos % (Auto) % Baso % (Auto) % Neut # (Auto) (1.4-6.5) K/uL Lymph # (Auto) (1.2-3.4) K/uL [place] # (Auto) (0.11-0.59) K/uL Eos # (Auto) (0-0.5) K/uL Baso # (Auto) (0-0.2) K/uL Immature Gran # (Auto) (0.00-0.02) K/uL Absolute Nucleated RBC (0-0) K/uL Nucleated RBC % (auto) % Polychromasia Anisocytosis Macrocytosis Echinocytes Sample Site POC pH (7.35-7.45) POC pCO2 (35-46) mmHg POC pO2 (80-95) mmHg POC HCO3 (19-24) cornelio/L POC Total CO2 (24-31) mmol/L POC Base Excess (-9-1.8) cornelio/L ABG pH (Temp Correct) (7.35-7.45) ABG pCO2 (Temp Corrct (35-46) mmHg POC ABG pO2 at Pt Temp POC ABG O2 Sat (90-95) % Navdeep Test O2 Delivery Device POC O2 Rate POC FiO2 % Tidal Volume PEEP POC Sodium (135-144) mmol/L Sodium (136-145) mmol/L POC Potassium (3.3-5.0) mmol/L Potassium (3.5-5.1) mmol/L Chloride (98-107) mmol/L Carbon Dioxide (21-32) mmol/L Anion Gap (3-11) BUN (7-18) mg/dl Creatinine (0.6-1.2) mg/dl Est Cr Clr Drug Dosing ml/min Est GFR ( Amer) ml/min Est GFR (Non-Af Amer) ml/min BUN/Creatinine Ratio (10-20) Glucose (70-99) mg/dl POC Glucose 128 H (70-99) mg/dl Calcium (8.5-10.1) mg/dl Phosphorus (2.5-4.9) mg/dl Magnesium (1.8-2.4) mg/dl Troponin I 10.300 H* (0-0.045) ng/ml Crossmatch 06/12/21 06/12/21 06/12/21 Range/Units 11:41 11:41 00:25 WBC (4.8-10.8) K/uL RBC (4.2-5.4) M/uL Hgb 9.8 L (12.0-16.0) g/dL POC Hgb 10.2 L (12.0-16.0) g/dl Hct 30.9 L (37-47) % POC Hct 30 L (37-47) % MCV (80-100) fL MCH (25-34) pg MCHC (32-36) g/dL RDW Std Deviation (36.4-46.3) fL RDW Coeff of Lola (11.5-14.5) % Plt Count (130-400) K/uL MPV (7.4-10.4) fL Immature Gran % (Auto) % Neut % (Auto) % Lymph % (Auto) % [place] % (Auto) % Eos % (Auto) % Baso % (Auto) % Neut # (Auto) (1.4-6.5) K/uL Lymph # (Auto) (1.2-3.4) K/uL [place] # (Auto) (0.11-0.59) K/uL Eos # (Auto) (0-0.5) K/uL Baso # (Auto) (0-0.2) K/uL Immature Gran # (Auto) (0.00-0.02) K/uL Absolute Nucleated RBC (0-0) K/uL Nucleated RBC % (auto) % Polychromasia Anisocytosis Macrocytosis Echinocytes Sample Site POC pH 6.89 L* (7.35-7.45) POC pCO2 72 H (35-46) mmHg POC pO2 118 H (80-95) mmHg POC HCO3 14 L (19-24) cornelio/L POC Total CO2 16 L (24-31) mmol/L POC Base Excess -20.0 L (-9-1.8) cornelio/L ABG pH (Temp Correct) (7.35-7.45) ABG pCO2 (Temp Corrct (35-46) mmHg POC ABG pO2 at Pt Temp POC ABG O2 Sat (90-95) % Navdeep Test O2 Delivery Device POC O2 Rate POC FiO2 % Tidal Volume PEEP POC Sodium 137 (135-144) mmol/L Sodium (136-145) mmol/L POC Potassium 4.3 (3.3-5.0) mmol/L Potassium (3.5-5.1) mmol/L Chloride (98-107) mmol/L Carbon Dioxide (21-32) mmol/L Anion Gap (3-11) BUN (7-18) mg/dl Creatinine (0.6-1.2) mg/dl Est Cr Clr Drug Dosing ml/min Est GFR ( Amer) ml/min Est GFR (Non-Af Amer) ml/min BUN/Creatinine Ratio (10-20) Glucose (70-99) mg/dl POC Glucose (70-99) mg/dl Calcium (8.5-10.1) mg/dl Phosphorus (2.5-4.9) mg/dl Magnesium (1.8-2.4) mg/dl Troponin I 11.700 H* (0-0.045) ng/ml Crossmatch 06/11/21 Range/Units 23:38 WBC (4.8-10.8) K/uL RBC (4.2-5.4) M/uL Hgb (12.0-16.0) g/dL POC Hgb (12.0-16.0) g/dl Hct (37-47) % POC Hct (37-47) % MCV (80-100) fL MCH (25-34) pg MCHC (32-36) g/dL RDW Std Deviation (36.4-46.3) fL RDW Coeff of Lola (11.5-14.5) % Plt Count (130-400) K/uL MPV (7.4-10.4) fL Immature Gran % (Auto) % Neut % (Auto) % Lymph % (Auto) % [place] % (Auto) % Eos % (Auto) % Baso % (Auto) % Neut # (Auto) (1.4-6.5) K/uL Lymph # (Auto) (1.2-3.4) K/uL [place] # (Auto) (0.11-0.59) K/uL Eos # (Auto) (0-0.5) K/uL Baso # (Auto) (0-0.2) K/uL Immature Gran # (Auto) (0.00-0.02) K/uL Absolute Nucleated RBC (0-0) K/uL Nucleated RBC % (auto) % Polychromasia Anisocytosis Macrocytosis Echinocytes Sample Site POC pH (7.35-7.45) POC pCO2 (35-46) mmHg POC pO2 (80-95) mmHg POC HCO3 (19-24) cornelio/L POC Total CO2 (24-31) mmol/L POC Base Excess (-9-1.8) cornelio/L ABG pH (Temp Correct) (7.35-7.45) ABG pCO2 (Temp Corrct (35-46) mmHg POC ABG pO2 at Pt Temp POC ABG O2 Sat (90-95) % Navdeep Test O2 Delivery Device POC O2 Rate POC FiO2 % Tidal Volume PEEP POC Sodium (135-144) mmol/L Sodium (136-145) mmol/L POC Potassium (3.3-5.0) mmol/L Potassium (3.5-5.1) mmol/L Chloride (98-107) mmol/L Carbon Dioxide (21-32) mmol/L Anion Gap (3-11) BUN (7-18) mg/dl Creatinine (0.6-1.2) mg/dl Est Cr Clr Drug Dosing ml/min Est GFR ( Amer) ml/min Est GFR (Non-Af Amer) ml/min BUN/Creatinine Ratio (10-20) Glucose (70-99) mg/dl POC Glucose (70-99) mg/dl Calcium (8.5-10.1) mg/dl Phosphorus (2.5-4.9) mg/dl Magnesium (1.8-2.4) mg/dl Troponin I (0-0.045) ng/ml Crossmatch See Detail
[2021-06-13] MEDS ORDERED: FUROSEMIDE 40 MG in SYRINGE 0 ML IV ONE (10:00)
[2021-06-13] MEDS ORDERED: LORazepam 1 MG/2 ML VIAL IV STA (10:05)
[2021-06-13 10:17] LABS: Hematocrit (blood only) 30.1 % (37-47); Hemoglobin 9.4 g/dL (12.0-16.0)
[2021-06-13] MEDS ORDERED: FUROSEMIDE 40 MG/4 ML VIAL IV ONE (10:45)
[2021-06-13 11:33] LABS: Oxygen Saturation VBG 89.6 %; pH VBG 7.44 (7.36-7.41)
[2021-06-13] MEDS: ALBUT/IPRATROP 3MG/0.5MG NEB 3 ML VIAL NEB SCH ×3 (11:34→18:29)
[2021-06-13] MEDS: FORMOTEROL 20 MCG/2 ML VIAL NEB SCH ×2 (11:34→18:28)
[2021-06-13] MEDS: INSULIN ASPART 100 UNITS/ML 3 ML PEN SC SCH ×2 (13:21→16:57)
[2021-06-13] MEDS ORDERED: NOREPINEPHRINE/D5W 8 MG/508 ML IV ONE (13:47)
--- NOTE | 2021-06-13 13:48 | Cardiology Progress Note ---
Date of Service June 13, 2021 Assessment & Plan (1) Respiratory failure with hypoxia and hypercapnia: (2) Non-ST elevation CO (NSTEMI): (3) ACS (acute coronary syndrome): (4) GI bleed: Plan: Patient is an extremely complex 55-year-old female with recent clinical course notable for presentation with syncope and profound anemia. She presents this admission in acute respiratory distress and congestive heart failure secondary to myocardial ischemia. Recent history of GI bleed Patient underwent emergent cardiac catheterization study demonstrating right coronary occlusion and high-grade proximal LAD stenosis successfully intervened on with drug-eluting stent. LV systolic function severely impaired on follow-up echocardiogram. Patient's history is notable for vasospastic angina, chronic coronary artery disease and significant peripheral vascular disease in addition to above issues Attempts for further weaning today have been unsuccessful. Plan, recommendations: As blood pressure stabilizes would add low-dose beta- demi for heart rate control. Will reduce dose of lisinopril to 2.5 mg/day and add topical nitrates as blood pressure allows Would hold a.m. dose of furosemide until assessed. Currently does not appear profoundly volume overloaded Admission and Anticipated Discharge Date Admission Date: June 12, 2021 Subjective Patient seen and examined this morning and early afternoon chart, medications, telemetry reviewed. Attempts to wean from ventilator today unsuccessful patient being reintubated. No verbalization of complaints but intubated and sedated earlier Patient febrile overnight but currently afebrile. Becomes tachycardic on respiratory weaning attempts Hypotensive after sedation and reintubation. Fluid balance is negative Review of Systems Review of Systems: Unobtainable due to cognitive status Physical Exam Constitutional: + ill appearing and + mechanically ventilated ENMT: external ear and nose normal, oropharynx normal Neck: trachea midline, no thyromegaly Respiratory: + labored breathing Auscultation: + rhonchi Cardiovascular: Rate/Rhythm: regular rate and regular rhythm Vessels: + carotid bruit (Right) Extremities: no edema Chest (Breasts): Chest: + pacemaker (Defibrillator site without her to) Gastrointestinal (Abdomen): normal bowel sounds, soft, nontender, no hepatosplenomegaly Results & Data ([facility]) Vital Signs (Past 12 Hours) Vital Signs Temp Pulse Pulse Resp BP BP Pulse Ox 06/13/21 12:00 113 H 126/84 06/13/21 11:45 113 H 113 H 42 H 93 06/13/21 11:00 37.3 C 111 H 36 H 138/87 96 06/13/21 10:13 107 H 37 H 95 06/13/21 10:00 37.9 C H 108 H 38 H 119/73 96 06/13/21 09:00 37.4 C 109 H 35 H 99/60 L 93 06/13/21 08:00 37.4 C 94 H 43 H 96/51 L 98 06/13/21 07:41 90 30 H 97 06/13/21 07:00 37.3 C 91 H 31 H 107/49 L 96 06/13/21 06:00 37.1 C 101 H 35 H 101/63 95 06/13/21 05:00 37.3 C 101 H 15 98/61 L 94 06/13/21 04:00 38.2 C H 100 H 35 H 136/88 97 06/13/21 03:10 94 H 32 H 97 06/13/21 03:00 38.4 C H 94 H 32 H 128/83 97 06/13/21 02:00 38.4 C H 99 H 33 H 129/80 94 Laboratory Results Laboratory Results - last 24 hr 06/12/21 06/12/21 06/12/21 15:53 15:53 22:24 WBC RBC Hgb 10.9 L 10.9 L POC Hgb Hct 34.8 L 34.8 L POC Hct MCV MCH MCHC RDW Std Deviation RDW Coeff of Lola Plt Count MPV Immature Gran % (Auto) Neut % (Auto) Lymph % (Auto) [place] % (Auto) Eos % (Auto) Baso % (Auto) Neut # (Auto) Lymph # (Auto) [place] # (Auto) Eos # (Auto) Baso # (Auto) Immature Gran # (Auto) Absolute Nucleated RBC Nucleated RBC % (auto) Polychromasia Anisocytosis Macrocytosis Echinocytes Sample Site POC pH POC pCO2 POC pO2 POC HCO3 POC Total CO2 POC Base Excess ABG pH (Temp Correct) ABG pCO2 (Temp Corrct POC ABG pO2 at Pt Temp POC ABG O2 Sat Navdeep Test VBG pH VBG pCO2 VBG pO2 VBG HCO3 VBG O2 Saturation VBG Base Excess Barometric Pressure O2 Delivery Device POC O2 Rate POC FiO2 Tidal Volume PEEP POC Sodium Sodium POC Potassium Potassium Chloride Carbon Dioxide Anion Gap BUN Creatinine Est Cr Clr Drug Dosing Est GFR ( Amer) Est GFR (Non-Af Amer) BUN/Creatinine Ratio Glucose POC Glucose Calcium Phosphorus Magnesium Troponin I 10.300 H* 06/12/21 06/13/21 06/13/21 22:24 00:33 04:28 WBC 14.30 H RBC 3.44 L Hgb 9.6 L POC Hgb Hct 29.5 L POC Hct MCV 85.8 MCH 27.9 MCHC 32.5 RDW Std Deviation 60.7 H RDW Coeff of Lola 20.5 H Plt Count 183 MPV 9.9 Immature Gran % (Auto) 0.2 Neut % (Auto) 86.2 Lymph % (Auto) 5.4 [place] % (Auto) 8.2 Eos % (Auto) 0.0 Baso % (Auto) 0.0 Neut # (Auto) 12.33 H Lymph # (Auto) 0.77 L [place] # (Auto) 1.17 H Eos # (Auto) 0.00 Baso # (Auto) 0.00 Immature Gran # (Auto) 0.03 H Absolute Nucleated RBC 0.11 H Nucleated RBC % (auto) 0.7 Polychromasia 1+ Anisocytosis Present Macrocytosis Present Echinocytes 1+ Sample Site POC pH POC pCO2 POC pO2 POC HCO3 POC Total CO2 POC Base Excess ABG pH (Temp Correct) ABG pCO2 (Temp Corrct POC ABG pO2 at Pt Temp POC ABG O2 Sat Navdeep Test VBG pH VBG pCO2 VBG pO2 VBG HCO3 VBG O2 Saturation VBG Base Excess Barometric Pressure O2 Delivery Device POC O2 Rate POC FiO2 Tidal Volume PEEP POC Sodium Sodium 137 POC Potassium Potassium 4.2 D Chloride 102 Carbon Dioxide 24 Anion Gap 11.0 BUN 29 H Creatinine 0.71 Est Cr Clr Drug Dosing 64.2 Est GFR ( Amer) 110.4 Est GFR (Non-Af Amer) 95.2 BUN/Creatinine Ratio 40.3 H Glucose 132 H POC Glucose 126 H Calcium 8.3 L Phosphorus Magnesium Troponin I 06/13/21 06/13/21 06/13/21 04:28 07:57 10:05 WBC RBC Hgb 9.4 L POC Hgb 9.5 L Hct 30.1 L POC Hct 28 L MCV MCH MCHC RDW Std Deviation RDW Coeff of Lola Plt Count MPV Immature Gran % (Auto) Neut % (Auto) Lymph % (Auto) [place] % (Auto) Eos % (Auto) Baso % (Auto) Neut # (Auto) Lymph # (Auto) [place] # (Auto) Eos # (Auto) Baso # (Auto) Immature Gran # (Auto) Absolute Nucleated RBC Nucleated RBC % (auto) Polychromasia Anisocytosis Macrocytosis Echinocytes Sample Site L Brachial POC pH 7.51 H* POC pCO2 32 L POC pO2 72 L POC HCO3 26 H POC Total CO2 27 POC Base Excess 3.0 H ABG pH (Temp Correct) 7.505 H* ABG pCO2 (Temp Corrct 33 L POC ABG pO2 at Pt Temp 75 POC ABG O2 Sat 96.0 H Navdeep Test NA VBG pH VBG pCO2 VBG pO2 VBG HCO3 VBG O2 Saturation VBG Base Excess Barometric Pressure O2 Delivery Device Ventilator POC O2 Rate 26 POC FiO2 40 Tidal Volume 350 PEEP 5 POC Sodium 135 Sodium 132 L POC Potassium 3.6 Potassium 4.4 Chloride 99 Carbon Dioxide 25 Anion Gap 8.0 BUN 27 H Creatinine 0.63 Est Cr Clr Drug Dosing 72.4 Est GFR ( Amer) 116.2 Est GFR (Non-Af Amer) 100.3 BUN/Creatinine Ratio 42.3 H Glucose 191 H POC Glucose Calcium 7.6 L Phosphorus 4.6 D Magnesium 2.1 Troponin I 06/13/21 06/13/21 11:19 11:29 WBC RBC Hgb POC Hgb Hct POC Hct MCV MCH MCHC RDW Std Deviation RDW Coeff of Lola Plt Count MPV Immature Gran % (Auto) Neut % (Auto) Lymph % (Auto) [place] % (Auto) Eos % (Auto) Baso % (Auto) Neut # (Auto) Lymph # (Auto) [place] # (Auto) Eos # (Auto) Baso # (Auto) Immature Gran # (Auto) Absolute Nucleated RBC Nucleated RBC % (auto) Polychromasia Anisocytosis Macrocytosis Echinocytes Sample Site POC pH POC pCO2 POC pO2 POC HCO3 POC Total CO2 POC Base Excess ABG pH (Temp Correct) ABG pCO2 (Temp Corrct POC ABG pO2 at Pt Temp POC ABG O2 Sat Navdeep Test VBG pH 7.44 H VBG pCO2 37 L VBG pO2 62 VBG HCO3 25 VBG O2 Saturation 89.6 VBG Base Excess 1.0 Barometric Pressure 733.1 O2 Delivery Device POC O2 Rate POC FiO2 Tidal Volume PEEP POC Sodium Sodium POC Potassium Potassium Chloride Carbon Dioxide Anion Gap BUN Creatinine Est Cr Clr Drug Dosing Est GFR ( Amer) Est GFR (Non-Af Amer) BUN/Creatinine Ratio Glucose POC Glucose 134 H Calcium Phosphorus Magnesium Troponin I (1) Respiratory failure with hypoxia and hypercapnia Chronicity: acute on chronic Qualified Code(s): J96.21 - Acute and chronic respiratory failure with hypoxia; J96.22 - Acute and chronic respiratory failure with hypercapnia
--- NOTE | 2021-06-13 14:00 | Procedure Note ---
Procedure Note Date of Service June 13, 2021 Note INTUBATION PROCEDURE NOTE: Provider: Javon Collins MD A time-out was completed verifying correct patient, procedure, site, positioning. Patient was evaluated and required intubation for progressive hypoxemic respiratory failure and respiratory distress. Sedative agent used: Versed and propofol Paralysis agent used: None Emergent consent was implied given patients rapidly declining clinical status and need for airway protection. Patient had been extubated earlier today. Unfortunately she required application of noninvasive positive pressure ventilation and has been steadily declining despite positive airway pressure. Her mental status is decreasing and she remains tachypneic. Was elected to pursue reintubation at this point time. The patient was prepared in the appropriate fashion. The patient was easily ventilated using [id number] to achieve adequate oxygenation. A 7.5 [place]ak endotracheal tube was placed under video laryngoscopy to 23 cm at the lip. The stylette was removed and balloon was inflated with 10mL of air. Appropriate Colorimetric change was appreciated. Bilateral breath sounds were heard without air sounds in the abdomen. Post procedure chest x-ray pending Coding CPT Codes Resuscitation - Resuscitation: [id number] Endotracheal Intubation, emergency ([id number]) [facility] [place] Procedure Codes (Charges) Resuscitation Resuscitation: [id number] Endotracheal Intubation, emergency
--- NOTE | 2021-06-13 14:11 | XRay Report ---
XR chest 1V portable HISTORY: check ett placement COMPARISON: Chest 06/13/2021. FINDINGS: Endotracheal tube terminates approximately 5 cm from the vaughn. Nasogastric tube terminate s below the diaphragm. Left-sided pacemaker/defibrillator is again noted. No pneumothorax. Trace bila teral pleural effusions. Perihilar interstitial/vascular thickening has slightly progressed. This sug gests mild interstitial pulmonary edema. Left basilar densities are noted. IMPRESSION: 1. Satisfactory support line placement with the endotracheal tube positioned 5 cm from the the vaughn . 2. Progressive pulmonary edema and a left basilar density. ACT 112: Negative or not required by law. Electronically signed by: Robert Godoy M.D. 06/13/2021 2:09 PM
--- NOTE | 2021-06-13 14:29 | Billing Data ---
Date of Service June 13, 2021 Coding Level of Care Code Critical Care 1st -74 mins
[2021-06-13] MEDS: methylPREDNISolone 40 MG in SYRINGE 0 ML IV SCH ×2 (15:46→22:43)
[2021-06-13] MEDS: CLOPIDOGREL BISULFATE 75 MG TAB PO SCH (17:40)
[2021-06-13] MEDS: ASPIRIN 81 MG CHEW NG SCH (17:40)
--- NOTE | 2021-06-13 17:54 | Hospitalist Progress Note ---
Date of Service June 13, 2021 Assessment & Plan (1) Non-ST elevation ID (NSTEMI): Plan: ASSESSMENT AND PLAN: This is a 55-year-old female who presents with agitation, chest pain, pain all over and found to be with non-ST elevated myocardial infarction and congestive heart failure. 1. Respiratory Distress: The patient is s/p intubation and mechanical ventilation, possibly secondary to congestive heart failure, received Lasix in ER -- self extubated further management per Sixth Grade Teacher service 2. Non-ST elevated myocardial infarction: Status post cardiac catheterization and stent to the proximal LAD lesion, post-cath care as per cardiology. Ischemic Cardiomyopathy -- s/p Cardiac Cath 06/[address] Hinojosa: 1. Severe multivessel vessel coronary artery disease -90% possibly acute proximal LAD stenosis. Patent mid LAD stent 100% chronic mid RCA occlusion. Distal vessel fills via [id number] collaterals. 2. Elevated intracardiac filling pressure. LVEDP 34 3. Severe obstructive abdominal aortic disease (unable to pass 5 Fr catheter across stenosis). 4. Successful PCI of proximal to mid LAD with single drug-eluting stent (3.0 x 18 mm Soham; postdilated with 3.5 NC, overlaps proximal aspect of prior stent). Echo: 25-30% extensive wall motion abnormalities with the inferior wall being akinetic at the base on ASA, Plavix, Imdur, Lisinopril, Lipitor on Lasix 40mg IV BID monitor diuresis 3. Anemia, possible GI bleed -- Hemoglobin was 5.4 last admission, required 4 units of PRBCs. Currently hemoglobin is 8.7. ER started on Protonix drip today which will continue. -- s/p 1 unit pRBC given -- Hg 10 -- GI not recommending EGD/Colonoscopy due to above recommending Protonix drip x 3 days 4. Possible urinary tract infection -- blood and urine cultures negative so far 5. Elevated lactic acid and acidosis: Most likely from the acute coronary syndrome and respiratory distress. -- improved 6. The patient is on chronic pain medication. The patient is on high dose of pain medication at home, which will be held. Will place on IV Dilaudid p.r.n. as the patient is currently intubated and sedated and getting propofol. 7. History of coronary artery disease. History of LAD stenting in the past as well as vasospastic angina 8. History of VT arrest due to coronary artery vasospasm versus acquired QT prolongation possible of azithromycin exposure, status post single chamber AICD. 9. History of peripheral vascular disease, superficial femoral artery occlusion, left subclavian artery stenosis. on aspirin and Plavix. 10. History of myotonic muscular dystrophy. PT, OT when stable. 11. History of pulmonary embolism. Coumadin was discontinued due to GI bleed in 2019. 12. History of left carotid endarterectomy in 2015. 13. History of chronic obstructive pulmonary disease: Continue her home inhalers. 14. History of seizures: On Keppra and phenytoin, which will be changed to IV.Dose adjustment of keppra per Pharmacy for renal function. 15. History of diastolic congestive heart failure: per above 16. History of hypertension: 17. History of deep venous thrombosis prophylaxis: Will place on sequential compression devices for now because of possible gastrointestinal bleed. 18. Underweight -- Nutrion consult Admission and Anticipated Discharge Date Admission Date: June 12, 2021 Subjective ff up for NSTEMI, CHF, etc self extubated this afternoon seen at bedside, on oxymask not in distress very drowsy, opens eyes to command occasionally confused, not much verbal output no other issues today per EMILY Rodríguez Review of Systems Review of Systems: all noted and negative except for above Physical Exam Physical Exam: General- oriented x 0, not in distress, breathing with no effort or accessory muscle use Eyes- anicteric Neck- no JVD Lungs- mild rales at the bases, no wheezing Heart- normal rate, regular rhythm; no murmurs Abdomen- normal bowel sounds, nondistended, soft, nontender Extremities- no pretibial edema, no calf tenderness Neuro- alert, oriented x 0; no gross focal neurologic deficits Skin- warm & dry Results & Data Results & Data ([facility]) Vital Signs (Past 12 Hours) Vital Signs Temp Pulse Pulse Resp BP BP Pulse Ox 06/13/21 17:00 37.5 C 110 H 36 H 88 L 06/13/21 16:10 103 H 30 H 94 06/13/21 16:00 37.5 C 102 H 33 H 92 06/13/21 15:00 37.0 C 94 H 26 H 95 06/13/21 14:30 36.9 C 93 H 26 H 94 06/13/21 14:00 37.1 C 88 26 H 95 06/13/21 13:35 86 28 H 96 06/13/21 13:30 37.4 C 99 H 32 H 105/59 L 100 06/13/21 13:00 37.5 C 105 H 38 H 93 06/13/21 12:30 37.3 C 115 H 29 H 95 06/13/21 12:00 37.4 C 113 H 33 H 126/84 06/13/21 11:45 113 H 113 H 42 H 93 06/13/21 11:30 37.4 C 113 H 32 H 96 06/13/21 11:00 37.3 C 111 H 36 H 138/87 96 06/13/21 10:13 107 H 37 H 95 06/13/21 10:00 37.9 C H 108 H 38 H 119/73 96 06/13/21 09:00 37.4 C 109 H 35 H 99/60 L 93 06/13/21 08:00 37.4 C 94 H 43 H 96/51 L 98 06/13/21 07:41 90 30 H 97 06/13/21 07:00 37.3 C 91 H 31 H 107/49 L 96 06/13/21 06:00 37.1 C 101 H 35 H 101/63 95 all noted and reviewed including below
[2021-06-13] MEDS: BUDESONIDE 0.5 MG/2 ML VIAL (PULMICORT) NEB SCH (18:29)
[2021-06-13] MEDS ORDERED: BUDESONIDE 0.25 MG/2 ML VIAL (PULMICORT) NEB SCH (19:00)
[2021-06-13] MEDS: ATORVASTATIN 40 MG TAB PO SCH (20:55)
[2021-06-13] MEDS ORDERED: FORMOTEROL 20 MCG/2 ML VIAL NEB SCH (21:00)
[2021-06-14] MEDS: INSULIN ASPART 100 UNITS/ML 3 ML PEN SC SCH ×4 (00:30→18:08)
[2021-06-14] MEDS: PANTOprazole 40 MG in DEXTROSE 5% 100 ML IV SCH ×3 (02:14→11:39)
[2021-06-14 05:30] LABS: Hematocrit (blood only) 32.8 % (37-47); Immature Granulocytes # (auto) 0.05 K/uL (0.00-0.02); Immature Granulocytes % (auto) 0.3 %; Lymphocytes # (auto) 0.51 K/uL (1.2-3.4); Lymphocytes % (auto) 3.1 %; Mean Corpuscular Hemoglobin 26.7 pg (25-34); Mean Corpuscular Hgb Conc 30.5 g/dL (32-36); Mean Corpuscular Volume 87.5 fL (80-100); Mean Platelet Volume 10.6 fL (7.4-10.4); Monocytes # (auto) 0.86 K/uL (0.11-0.59); Monocytes % (auto) 5.3 %; Neutrophils % (auto) 91.3 %; Platelet Count 184 K/uL (130-400); RDW Coefficient of Variation 20.2 % (11.5-14.5); RDW Standard Deviation 62.5 fL (36.4-46.3); Red Blood Count 3.75 M/uL (4.2-5.4); White Blood Count 16.22 K/uL (4.8-10.8)
[2021-06-14 05:47] LABS: Anisocytosis Present; Hypochromasia Present; Polychromasia 1+
[2021-06-14 06:00] LABS: Albumin Level 2.8 gm/dl (3.4-5.0); BUN Creatinine Ratio 38.6 (10-20); Calcium 8.5 mg/dl (8.5-10.1); Est GFR (Non-African American) 86.3 ml/min; Magnesium 2.3 mg/dl (1.8-2.4); Phosphorus 4.9 mg/dl (2.5-4.9); Potassium 3.3 mmol/L (3.5-5.1)
--- NOTE | 2021-06-14 06:02 | Critical Care Progress Note ---
Date of Service June 14, 2021 Assessment & Plan (1) Non-ST elevation MT (NSTEMI): Plan: Reason Critically Ill: 55-year-old female presents to the ICU following event of acute coronary syndrome resulting in acute HFrEF with hypoxic hypercapnic respiratory failure requiring emergent intubation. Now post cardiac catheter she received a single drug-eluting stent to the proximal LAD for 90% stenosis and is also being monitored for a GIB and acute hypoxic/hypercapnic respiratory failure, likely secondary to component of acute CHF and severe underlying COPD. She is hemodynamically stable. Neuro - Sedation: None. Seizure disordercontinue Keppra, phenytoin, primidone Polyneuropathycontinue Neurontin Cardiac - Acute coronary syndromepatient presented with NSTEMI, acute HFrEF, respiratory distress -Status post successful PCI with single AKIKO to the proximal LAD for 90% stenosis -Noted during cath to have 100% occlusion of RCA with collateral flow -Continue ASA, plavix, atorvastatin 80, ACEI -Hold diltiazem, home nitrates in setting of acute HFrEF -TTE as below Acute HFrEF-in setting of NSTEMI, as above -TTE demonstrating severe LV dysfunction with LVEF 25-30%, akinesis of inferior wall and inferior septum, hypokinesis of apex/posterinferior mixon -Continue Lasix 40mg IV b.i.d. -- UOP adequate. -Continue holding home diltiazem in setting of acute HFrEF - appreciate cardiology input -CAD/ACS care, as above Prinzmetal angina- as above, holding diltiazem Tachycardia-Resolved -Overnight noted to have tachycardia between 100-110 -Suspect multifactorial: respiratory distress - acute CHF, possible COPD exacerbation, alkalosis Respiratory - Acute hypoxic hypercapnic respiratory failuresuspect large component of underlying COPD, compounded by acute CHF in setting of NSTEMI -Currently on HFNC. Will draw gas. -Continue DuoNeb q.i.d., budesonide b.i.d., and formoterol b.i.d. -Begin methylprednisone q8h -Continue Lasix -- UOP adequate -No evidence of underlying pulmonary infection right now -Add chest percussion therapy to aid with mucociliary clearance -Ween NC as tolerated. GI - GI bleedpatient with positive occult stool in the ED and multiple melanotic stools, now resolved (06/14) -Patient at higher risk for PUD, mesenteric ischemia given PAD and ACS on presentation -Recently admitted for anemia requiring 4U pRBC in May - did not return for outpatient endoscopy -Repeat Hgb at 9.6 this AM (from 10.9) yesterday after 1U pRBC. VSS. -Transition protonix gtt --> IV b.i.d. (and oral once able) -Continue DAPT in setting of ACS, will hold anticoagulation -GI consulted - given ACS, hold from endoscopy at this time. -Stable RENAL/LYTES - Respiratory alkalosis with metabolic alkalosis - suspect primarily due to respiratory rate at this point, alongside posthypercapnic renal effect. CPAP and respiratory therapies as above. Will continue to monitor. - Foleystrict I's and O's -- adequate ENDO - No history of diabetes, ICU hyperglycemic protocol No history of thyroid disease HEME - Anemiasecondary to acute blood loss from GI bleed -Mild drop in Hgb appreciated - 10.9 --> 9.6 --> 10.0 -Suspect secondary to GIB, as above -s/p 1U pRBC on 06/12 -Hemodynamically stable at this time. Continue to monitor. -Transfuse Hgb < 8 ID - No clear source of infection at this time. Previous concerns for PNA - however, CXR greatly improved with diuresis. White count elevated from yesterday, but also started on steroids - possible demargination. In setting of mildly increased procal (1.2), will check CXR. BCX showing no growth to date. ABX discontinued 06/13. 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 She is on high flow. She appears to be showing some slow and steady improvement. We will continue to work on pulmonary toilet. The etiology of her elevated procalcitonin is unclear. Follow-up chest x-ray will be obtained. She could have aspirated with the self extubation and reintubation yesterday. Hold on antibiotics pending evaluation of the chest x-ray. Continue diuretics. If we get her able to wean her oxygen, will need to get her up out of bed to chair and work on physical therapy and Occupational Therapy. We will keep her in the ICU today pending improvement in her oxygenation status and overall delirium. Patient was discussed on multidisciplinary rounds as well as with securities clerk and the multidisciplinary team. Subjective Patient seen at the bedside this morning. She is still quite somnolent, is able to tell me her name but not respond appropriately to questions. When asked about pain, she points to her epigastric region. She is unable to tell me about her breathing. No significant events reported by nursing overnight. Review of Systems Review of Systems: Unobtainable due to cognitive status Physical Exam Physical Exam: General: 55-year-old female on high flow nasal cannula who is lying somnolent in her bed. She is alert and oriented only to person. She is responsive to painful stimuli. HEENT: NCAT. Eyes - Sclera are white, anicteric, and without injection. PERRL. Mouth - MMM with no tonsillar edema or exudates. Neck - No JVD appreciated. Cardiac: Normal rate and regular rhythm; S1 and S2 present with no murmurs, rubs, or gallops. Pulmonary: Nasal cannula in place. Mildly increased respiratory effort with symmetric expansion of the chest. No use of accessory muscles. Compared to yesterday's exams, lung auscultation is much improvedlung sounds in the left are mostly vesicular, the right base still reveals some evidence of rhonchi. Abdominal: Hypoactive bowel sounds. Abdomen was soft, nondistended. No facial grimacing with palpation. Extremities: Upper and lower extremities are warm and well perfused. Radial and dorsalis pedis pulses were 2+ b/l. Capillary refill assessed in UE was < 3 sec. No peripheral edema. Results & Data Results & Data ([facility]) Vital Signs (Past 12 Hours) Vital Signs Temp Pulse Pulse Resp BP BP Pulse Ox 06/14/21 05:53 104 H 32 H 94 06/14/21 05:00 37.9 C H 106 H 36 H 148/88 H 92 06/14/21 04:00 37.4 C 108 H 35 H 142/90 H 92 06/14/21 03:37 109 H 34 H 90 06/14/21 03:00 37.8 C H 108 H 34 H 151/94 H 95 06/14/21 02:00 37.7 C H 107 H 109 H 34 H 149/86 H 92 06/14/21 01:00 37.9 C H 108 H 35 H 140/83 95 06/14/21 00:00 37.8 C H 108 H 34 H 144/85 H 97 06/13/21 23:21 107 H 34 H 91 06/13/21 23:00 37.4 C 108 H 35 H 154/101 H 93 06/13/21 22:00 37.4 C 104 H 32 H 140/84 93 06/13/21 21:00 37.5 C 109 H 33 H 143/89 H 94 06/13/21 20:00 37.1 C 112 H 33 H 131/92 92 06/13/21 19:00 37.3 C 112 H 34 H 145/85 H 93 06/13/21 18:29 108 H 33 H 94 Resident Activity Tracking Resident Involvement: Resident Care Provided Care Provided: Adult Hospital Medicine (1) CHF (congestive heart failure) Heart failure chronicity: acute Heart failure type: unspecified Qualified Code(s): I50.9 - Heart failure, unspecified (2) Anemia Anemia type: other cause Other causes of anemia: other cause, not classified Qualified Code(s): D64.89 - Other specified anemias (3) Respiratory failure with hypoxia and hypercapnia Chronicity: acute on chronic Qualified Code(s): J96.21 - Acute and chronic respiratory failure with hypoxia; J96.22 - Acute and chronic respiratory failure with hypercapnia (4) Syncope Syncope type: unspecified Qualified Code(s): R55 - Syncope and collapse
[2021-06-14] MEDS: ICU ELECTROLYTE REPLACEMENT PROTOCOL SCH ×2 (06:08→20:24)
[2021-06-14] MEDS: POTASSIUM CHLORIDE / WTR 10 MEQ/100 ML PLCT IV SCH ×8 (07:02→14:49)
[2021-06-14] MEDS: BUDESONIDE 0.5 MG/2 ML VIAL (PULMICORT) NEB SCH ×2 (07:24→19:44)
[2021-06-14] MEDS: ALBUT/IPRATROP 3MG/0.5MG NEB 3 ML VIAL NEB SCH ×4 (07:24→19:44)
[2021-06-14] MEDS: FORMOTEROL 20 MCG/2 ML VIAL NEB SCH ×2 (07:24→20:07)
[2021-06-14] MEDS: methylPREDNISolone 40 MG in SYRINGE 0 ML IV SCH ×3 (08:02→22:26)
[2021-06-14] MEDS: PHENYTOIN 100 MG in SYRINGE 0 ML IV SCH ×3 (08:02→20:00)
[2021-06-14] MEDS: levETIRAcetam 1,000 MG in 0.9 % SODIUM CHLORIDE 100 ML IV SCH ×2 (08:02→19:59)
[2021-06-14] MEDS: FUROSEMIDE 40 MG in SYRINGE 0 ML IV SCH ×2 (08:02→16:33)
[2021-06-14] MEDS: FLUTICASONE PROPIONATE NA SPR 16 GM BTL SCH (08:03)
[2021-06-14] MEDS: SODIUM CHLORIDE 0.9% 10ML FLUSH IV SCH ×3 (08:03→20:04)
[2021-06-14 08:26] LABS: Base Excess VBG -1.2 mEq/L; HCO3 VBG 24 mmol/L; PCO2 VBG 43 mmHg (38-50); PO2 VBG 32 mmHg; pH VBG 7.37 (7.36-7.41)
[2021-06-14 08:27] LABS: Oxygen Saturation VBG < 60.0 %
--- NOTE | 2021-06-14 10:38 | Billing Data ---
Date of Service June 14, 2021 Coding Level of Care Code 28206 Subseq Hosp Care Lvl 3
--- NOTE | 2021-06-14 11:10 | Cardiology Progress Note ---
Date of Service June 14, 2021 Assessment & Plan (1) Respiratory failure with hypoxia and hypercapnia: (2) Non-ST elevation MA (NSTEMI): (3) ACS (acute coronary syndrome): (4) GI bleed: Plan: Patient is an extremely complex 55-year-old female with recent clinical course notable for presentation with syncope and profound anemia. She presents this admission in acute respiratory distress and congestive heart failure secondary to myocardial ischemia. Recent history of GI bleed Patient underwent emergent cardiac catheterization study demonstrating right coronary occlusion and high-grade proximal LAD stenosis successfully intervened on with drug-eluting stent. LV systolic function severely impaired on follow-up echocardiogram. Patient's history is notable for vasospastic angina, chronic coronary artery disease and significant peripheral vascular disease in addition to above issues Plan, recommendations: We will add beta-demi at 2.5 mg IV every 4 hours until able to take p.o. for heart rate control. Add topical nitrates for blood pressure control and treatment of underlying vasospastic disease. Patient with severe peripheral vascular disease all blood pressure should be right arm Potassium being supplement Chest x-ray reveals increased interstitial markings though patient fluid balance continue to be negative. White cell count elevated as is procalcitonin will need to follow for infectious process as well Admission and Anticipated Discharge Date Admission Date: June 12, 2021 Subjective Patient was seen and examined, chart, medications, telemetry reviewed. Patient self extubated yesterday afternoon has been maintained on high flow oxygen overnight. Lethargic this morning but responding to questioning Currently not receiving oral medications Patient denies any specific chest pain possible mild abdominal discomfort. Respiratory status marginal but stable Review of Systems Review of Systems: Unobtainable due to cognitive status Physical Exam Constitutional: + ill appearing and + mechanically ventilated ENMT: external ear and nose normal, oropharynx normal Neck: trachea midline, no thyromegaly Respiratory: + labored breathing Auscultation: + rhonchi Cardiovascular: Rate/Rhythm: regular rate and regular rhythm Vessels: + carotid bruit (Right) Extremities: no edema Chest (Breasts): Chest: + pacemaker (Defibrillator site without her to) Gastrointestinal (Abdomen): normal bowel sounds, soft, nontender, no hepatosplenomegaly Results & Data ([facility]) Vital Signs (Past 12 Hours) Vital Signs Temp Pulse Pulse Resp BP BP Pulse Ox 06/14/21 10:00 37.5 C 93 H 28 H 89 L 06/14/21 09:00 37.5 C 97 H 25 H 92 06/14/21 08:00 37.0 C 100 H 33 H 94 06/14/21 07:27 102 H 22 96 06/14/21 07:25 102 H 20 96 06/14/21 07:00 37.4 C 102 H 28 H 89 L 06/14/21 06:00 37.5 C 102 H 34 H 142/84 H 93 06/14/21 05:53 104 H 32 H 94 06/14/21 05:00 37.9 C H 106 H 36 H 148/88 H 92 06/14/21 04:00 37.4 C 108 H 35 H 142/90 H 92 06/14/21 03:37 109 H 34 H 90 06/14/21 03:00 37.8 C H 108 H 34 H 151/94 H 95 06/14/21 02:00 37.7 C H 107 H 109 H 34 H 149/86 H 92 06/14/21 01:00 37.9 C H 108 H 35 H 140/83 95 06/14/21 00:00 37.8 C H 108 H 34 H 144/85 H 97 06/13/21 23:21 107 H 34 H 91 Laboratory Results Laboratory Results - last 24 hr 06/11/21 06/13/21 06/13/21 23:38 11:19 11:29 WBC RBC Hgb Hct MCV MCH MCHC RDW Std Deviation RDW Coeff of Lola Plt Count MPV Immature Gran % (Auto) Neut % (Auto) Lymph % (Auto) [place] % (Auto) Eos % (Auto) Baso % (Auto) Neut # (Auto) Lymph # (Auto) [place] # (Auto) Eos # (Auto) Baso # (Auto) Immature Gran # (Auto) Polychromasia Hypochromasia Anisocytosis VBG pH 7.44 H VBG pCO2 37 L VBG pO2 62 VBG HCO3 25 VBG O2 Saturation 89.6 VBG Base Excess 1.0 Barometric Pressure 733.1 Sodium Potassium Chloride Carbon Dioxide Anion Gap BUN Creatinine Est Cr Clr Drug Dosing Est GFR ( Amer) Est GFR (Non-Af Amer) BUN/Creatinine Ratio Glucose POC Glucose 134 H Calcium Phosphorus Magnesium Troponin I Albumin Procalcitonin Phenytoin Crossmatch See Detail 06/13/21 06/13/21 06/14/21 16:05 23:26 05:05 WBC 16.22 H RBC 3.75 L Hgb 10.0 L Hct 32.8 L MCV 87.5 MCH 26.7 MCHC 30.5 L RDW Std Deviation 62.5 H RDW Coeff of Lola 20.2 H Plt Count 184 MPV 10.6 H Immature Gran % (Auto) 0.3 Neut % (Auto) 91.3 Lymph % (Auto) 3.1 [place] % (Auto) 5.3 Eos % (Auto) 0.0 Baso % (Auto) 0.0 Neut # (Auto) 14.80 H Lymph # (Auto) 0.51 L [place] # (Auto) 0.86 H Eos # (Auto) 0.00 Baso # (Auto) 0.00 Immature Gran # (Auto) 0.05 H Polychromasia 1+ Hypochromasia Present Anisocytosis Present VBG pH VBG pCO2 VBG pO2 VBG HCO3 VBG O2 Saturation VBG Base Excess Barometric Pressure Sodium Potassium Chloride Carbon Dioxide Anion Gap BUN Creatinine Est Cr Clr Drug Dosing Est GFR ( Amer) Est GFR (Non-Af Amer) BUN/Creatinine Ratio Glucose POC Glucose 129 H 152 H Calcium Phosphorus Magnesium Troponin I Albumin Procalcitonin Phenytoin Crossmatch 06/14/21 06/14/21 06/14/21 05:05 05:05 05:05 WBC RBC Hgb Hct MCV MCH MCHC RDW Std Deviation RDW Coeff of Lola Plt Count MPV Immature Gran % (Auto) Neut % (Auto) Lymph % (Auto) [place] % (Auto) Eos % (Auto) Baso % (Auto) Neut # (Auto) Lymph # (Auto) [place] # (Auto) Eos # (Auto) Baso # (Auto) Immature Gran # (Auto) Polychromasia Hypochromasia Anisocytosis VBG pH VBG pCO2 VBG pO2 VBG HCO3 VBG O2 Saturation VBG Base Excess Barometric Pressure Sodium 136 Potassium 3.3 L D Chloride 102 Carbon Dioxide 25 Anion Gap 9.0 BUN 30 H Creatinine 0.77 Est Cr Clr Drug Dosing 60.0 Est GFR ( Amer) 100.0 Est GFR (Non-Af Amer) 86.3 BUN/Creatinine Ratio 38.6 H Glucose 133 H POC Glucose Calcium 8.5 Phosphorus 4.9 Magnesium 2.3 Troponin I Albumin 2.8 L Procalcitonin 1.25 H Phenytoin 7.7 L Crossmatch 06/14/21 06/14/21 08:12 08:12 WBC RBC Hgb Hct MCV MCH MCHC RDW Std Deviation RDW Coeff of Lola Plt Count MPV Immature Gran % (Auto) Neut % (Auto) Lymph % (Auto) [place] % (Auto) Eos % (Auto) Baso % (Auto) Neut # (Auto) Lymph # (Auto) [place] # (Auto) Eos # (Auto) Baso # (Auto) Immature Gran # (Auto) Polychromasia Hypochromasia Anisocytosis VBG pH 7.37 VBG pCO2 43 VBG pO2 32 VBG HCO3 24 VBG O2 Saturation < 60.0 VBG Base Excess -1.2 Barometric Pressure 731.2 Sodium Potassium Chloride Carbon Dioxide Anion Gap BUN Creatinine Est Cr Clr Drug Dosing Est GFR ( Amer) Est GFR (Non-Af Amer) BUN/Creatinine Ratio Glucose POC Glucose Calcium Phosphorus Magnesium Troponin I 4.750 H* Albumin Procalcitonin Phenytoin Crossmatch (1) Respiratory failure with hypoxia and hypercapnia Chronicity: acute on chronic Qualified Code(s): J96.21 - Acute and chronic respiratory failure with hypoxia; J96.22 - Acute and chronic respiratory failure with hypercapnia
[2021-06-14] MEDS: FERROUS SULFATE 325 MG TAB PO SCH ×2 (11:15→16:33)
[2021-06-14] MEDS: GABAPENTIN 600 MG TAB PO SCH ×3 (11:15→20:04)
[2021-06-14] MEDS: GABAPENTIN 300 MG CAP PO SCH ×3 (11:15→20:04)
[2021-06-14] MEDS: lisinopril 2.5 MG TAB PO SCH (11:15)
[2021-06-14] MEDS: CLOPIDOGREL BISULFATE 75 MG TAB PO SCH (11:15)
[2021-06-14] MEDS: ASPIRIN 81 MG CHEW NG SCH (11:15)
[2021-06-14] MEDS: POTASSIUM CHLORIDE CRTAB 20 MEQ TABCR PO SCH (11:16)
[2021-06-14] MEDS: PRIMIDONE 50 MG TAB PO SCH ×3 (11:16→20:04)
[2021-06-14] MEDS: PRAZOSIN HCL 1 MG CAP PO SCH ×2 (11:16→20:04)
[2021-06-14] MEDS: LORATADINE 10 MG TAB PO SCH (11:16)
[2021-06-14] MEDS: METOPROLOL TARTRATE 1 MG/ML VIAL IV SCH ×3 (11:39→20:01)
[2021-06-14] MEDS: NITROGLYCERIN 2% OINTMENT 30GM TUBE EXT SCH ×3 (11:39→22:28)
--- NOTE | 2021-06-14 12:20 | XRay Report ---
XR chest 1V portable HISTORY: 55 years-old Female sob acute shortness of breath. COMPARISON: Chest radiograph 06/13/2021 TECHNIQUE: AP view of the chest FINDINGS: Left subclavian pacer/AICD. Calcified plaque of the thoracic aorta. Cardiac mediastinal and hilar baldemar houettes are unchanged. Interval extubation with removal of the enteric tube. Pulmonary edema with tr wiliam pleural effusions. Progressively worsened bibasilar opacities. No acute fracture. IMPRESSION: 1. Interval extubation with removal of the enteric tube. 2. Mildly progressed pulmonary edema with bibasilar opacities. 3. Small pleural effusions. ACT 112: Negative or not required by law. The above report was generated using voice recognition software. It may contain grammatical, syntax o r spelling errors. Electronically signed by: Freeman Nelson M.D. 06/14/2021 12:19 PM
--- NOTE | 2021-06-14 15:17 | Hospitalist Progress Note ---
Date of Service June 14, 2021 Assessment & Plan (1) Non-ST elevation VT (NSTEMI): Plan: ASSESSMENT AND PLAN: This is a 55-year-old female who presents with agitation, chest pain, pain all over and found to be with non-ST elevated myocardial infarction and congestive heart failure. 1. Respiratory Distress: The patient is s/p intubation and mechanical ventilation, possibly secondary to congestive heart failure, received Lasix in ER -- self extubated further management per Quality Assurance Analyst service 2. Non-ST elevated myocardial infarction: Status post cardiac catheterization and stent to the proximal LAD lesion, post-cath care as per cardiology. Ischemic Cardiomyopathy -- s/p Cardiac Cath 06/[address] Hinojosa: 1. Severe multivessel vessel coronary artery disease -90% possibly acute proximal LAD stenosis. Patent mid LAD stent 100% chronic mid RCA occlusion. Distal vessel fills via pyid-ya-rrxos collaterals. 2. Elevated intracardiac filling pressure. LVEDP 34 3. Severe obstructive abdominal aortic disease (unable to pass 5 Fr catheter across stenosis). 4. Successful PCI of proximal to mid LAD with single drug-eluting stent (3.0 x 18 mm Soham; postdilated with 3.5 NC, overlaps proximal aspect of prior stent). Echo: 25-30% extensive wall motion abnormalities with the inferior wall being akinetic at the base on ASA, Plavix, Imdur-->changed to Nitropaste, IV Metoprolol, Lisinopril, Lipitor on Lasix 40mg IV BID monitor diuresis 3. Anemia, possible GI bleed -- Hemoglobin was 5.4 last admission, required 4 units of PRBCs. Currently hemoglobin is 8.7. ER started on Protonix drip today which will continue. -- s/p 1 unit pRBC given -- Hg 10 -- GI not recommending EGD/Colonoscopy due to above recommending Protonix drip x 3 days 4. Possible urinary tract infection -- blood and urine cultures negative so far 5. Elevated lactic acid and acidosis: Most likely from the acute coronary syndrome and respiratory distress. -- improved 6. The patient is on chronic pain medication. The patient is on high dose of pain medication at home, which will be held. Will place on IV Dilaudid p.r.n. as the patient is currently intubated and sedated and getting propofol. 7. History of coronary artery disease. History of LAD stenting in the past as well as vasospastic angina 8. History of VT arrest due to coronary artery vasospasm versus acquired QT prolongation possible of azithromycin exposure, status post single chamber AICD. 9. History of peripheral vascular disease, superficial femoral artery occlusion, left subclavian artery stenosis. on aspirin and Plavix. 10. History of myotonic muscular dystrophy. PT, OT when stable. 11. History of pulmonary embolism. Coumadin was discontinued due to GI bleed in 2019. 12. History of left carotid endarterectomy in 2015. 13. History of chronic obstructive pulmonary disease: Continue her home inhalers. 14. History of seizures: On Keppra and phenytoin, which will be changed to IV.Dose adjustment of keppra per Pharmacy for renal function. 15. History of diastolic congestive heart failure: per above 16. History of hypertension: 17. History of deep venous thrombosis prophylaxis: Will place on sequential compression devices for now because of possible gastrointestinal bleed. 18. Underweight -- Nutrion consult Admission and Anticipated Discharge Date Admission Date: June 12, 2021 Subjective ff up for NSTEMI, etc seen resting in bed, on high flow NC 40 awake but confused nods/shakes her head to respond denies chest pain, dyspnea no nausea/melena/hematochezia per staff counselor no other issues Review of Systems Review of Systems: Unobtainable due to cognitive status Physical Exam Physical Exam: General- oriented x 0, not in distress, breathing with no effort or accessory muscle use Eyes- anicteric Neck- no JVD Lungs-(+) rales bilateral bases Heart- normal rate, regular rhythm; no murmurs Abdomen- normal bowel sounds, nondistended, soft, nontender Extremities- no pretibial edema, no calf tenderness Neuro- alert, oriented x o; no new gross focal neurologic deficits Skin- warm & dry Results & Data Results & Data ([facility]) Vital Signs (Past 12 Hours) Vital Signs Temp Pulse Pulse Resp BP BP Pulse Ox 06/14/21 13:09 133/81 06/14/21 12:00 95 H 126/67 06/14/21 11:39 99 H 143/85 H 06/14/21 11:11 94 H 32 H 90 06/14/21 11:10 95 H 30 H 91 06/14/21 11:00 143/87 H 06/14/21 10:00 37.5 C 93 H 28 H 140/109 H 89 L 06/14/21 09:00 37.5 C 97 H 25 H 144/88 H 92 06/14/21 08:00 37.0 C 100 H 33 H 145/81 H 94 06/14/21 07:27 102 H 22 96 06/14/21 07:25 102 H 20 96 06/14/21 07:00 37.4 C 102 H 28 H 140/84 89 L 06/14/21 06:00 37.5 C 102 H 34 H 142/84 H 93 06/14/21 05:53 104 H 32 H 94 06/14/21 05:00 37.9 C H 106 H 36 H 148/88 H 92 06/14/21 04:00 37.4 C 108 H 35 H 142/90 H 92 06/14/21 03:37 109 H 34 H 90 all noted and reviewed including below
--- NOTE | 2021-06-14 16:01 | Electrocardiogram Report ---
Test Reason : Blood Pressure : / mmHG Vent. Rate : 101 BPM Atrial Rate : 101 BPM P-R Int : 158 ms QRS Dur : 096 ms QT Int : 340 ms P-R-T Axes : 064 043 237 degrees QTc Int : 440 ms Sinus tachycardia Left atrial enlargement Abnormal ECG When compared with ECG of 12-JUN-2021 11:04, Non-specific change in ST segment in Anterior leads T wave inversion no longer evident in Anterior leads Confirmed by Hector Paige ([id number]) on 06/14/2021 4:01:43 PM Referred By: REFERRED SELF Confirmed By:Hector Paige
[2021-06-14 16:21] LABS: Amobarbital, Urine Conf NEGATIVE ng/mL (<100); Butalbital, Urine NEGATIVE ng/mL (<100); Codeine Urine NEGATIVE ng/mL (<50); Hydrocodone Urine NEGATIVE ng/mL (<50); Hydromor Urine NEGATIVE ng/mL (<50); Marijuana Quant, GCMS Urine 8 ng/mL (<5); Morphine Urine 436 ng/mL (<50); Norhydrocodone Conf Ur NEGATIVE ng/mL (<50); Noroxycodone Urine NEGATIVE ng/mL (<50); Oxycodone Urine NEGATIVE ng/mL (<50); Oxymorph Urine NEGATIVE ng/mL (<50); Pentobarbital, Urine Conf NEGATIVE ng/mL (<100); Phenobarbital, Urine 896 ng/mL (<100); Secobarbital, Urine Conf NEGATIVE ng/mL (<100)
[2021-06-14] MEDS ORDERED: SODIUM BICARB 8.4% INJ 50 MEQ/50 ML SYR IV ONE (16:30)
[2021-06-14 16:35] LABS: iSTAT Allen Test Pass; iSTAT Art Bld Gas pCO2 Correct 55 mmHg (35-46); iSTAT Art Bld Gas pH Corrected 7.191 (7.35-7.45); iSTAT Arterial Blood Gas HCO3 21 meg/L (19-24); iSTAT Arterial Blood Gas pCO2 55 mmHg (35-46); iSTAT Arterial Blood Gas pO2 41 mmHg (80-95); iSTAT Arterial Blood Gas pO2 C 42; iSTAT Carbon Dioxide 23 mmol/L (24-31); iSTAT FiO2 55 %; iSTAT Hematocrit 29 % (37-47); iSTAT Hemoglobin 9.9 g/dl (12.0-16.0); iSTAT Potassium 6.6 mmol/L (3.3-5.0); iSTAT Site R Brachial; iSTAT Sodium 135 mmol/L (135-144)
[2021-06-14 16:35] LABS: iSTAT Allen Test Pass; iSTAT Art Bld Gas pCO2 Correct 47 mmHg (35-46); iSTAT Art Bld Gas pH Corrected 7.214 (7.35-7.45); iSTAT Arterial Blood Gas HCO3 19 meg/L (19-24); iSTAT Arterial Blood Gas pCO2 47 mmHg (35-46); iSTAT Arterial Blood Gas pH 7.22 (7.35-7.45); iSTAT Arterial Blood Gas pO2 204 mmHg (80-95); iSTAT Arterial Blood Gas pO2 C 204; iSTAT Carbon Dioxide 21 mmol/L (24-31); iSTAT FiO2 100 %; iSTAT Hematocrit 29 % (37-47); iSTAT Hemoglobin 9.9 g/dl (12.0-16.0); iSTAT Site R Brachial; iSTAT Sodium 135 mmol/L (135-144)
[2021-06-14 17:52] LABS: BUN Creatinine Ratio 57.7 (10-20); Calcium 7.5 mg/dl (8.5-10.1); Creatinine Clr Calc Pharmacy 71.6 ml/min; Est GFR (African American) 115.6 ml/min; Est GFR (Non-African American) 99.8 ml/min
[2021-06-14] MEDS: PANTOprazole 40 MG in SYRINGE 0 ML IV SCH (20:00)
[2021-06-14] MEDS: ATORVASTATIN 40 MG TAB PO SCH (20:04)
[2021-06-14 20:08] LABS: Calcium 8.4 mg/dl (8.5-10.1); Creatinine Clr Calc Pharmacy 51.5 ml/min; Est GFR (Non-African American) 72.5 ml/min; Potassium 4.6 mmol/L (3.5-5.1)
[2021-06-14] MEDS: AMPICILLIN/SULBACTAM SOD 1,500 MG in 0.9 % SODIUM CHLORIDE 100 ML IV SCH (20:13)
[2021-06-14 21:21] LABS: Base Excess ABG -0.3 mEq/L (-9-1.8); HCO3 ABG 23 mmol/L (19-24); Oxygen Saturation ABG 91.2 % (90-95); PCO2 ABG 34 mmHg (35-46); PO2 ABG 65 mmHg (80-95); pH ABG 7.45 (7.35-7.45)
[2021-06-14 21:36] LABS: Allen Test Pos (Pos)
[2021-06-14] MEDS ORDERED: ACETAMINOPHEN 1000 MG/100 ML IV IV ONE (22:18)
[2021-06-14] MEDS: ACETAMINOPHEN 1,000 MG/100 ML VIAL IV PRN (22:26)
[2021-06-15] MEDS: METOPROLOL TARTRATE 1 MG/ML VIAL IV SCH ×6 (00:30→20:07)
[2021-06-15] MEDS: INSULIN ASPART 100 UNITS/ML 3 ML PEN SC SCH ×4 (00:30→18:11)
[2021-06-15] MEDS: AMPICILLIN/SULBACTAM SOD 1,500 MG in 0.9 % SODIUM CHLORIDE 100 ML IV SCH ×4 (02:32→20:00)
[2021-06-15] MEDS: ALBUT/IPRATROP 3MG/0.5MG NEB 3 ML VIAL NEB PRN (03:01)
[2021-06-15 03:56] LABS: iSTAT Arterial Blood Gas HCO3 28 meg/L (19-24); iSTAT Arterial Blood Gas pCO2 62 mmHg (35-46); iSTAT Arterial Blood Gas pH 7.27 (7.35-7.45); iSTAT Arterial Blood Gas pO2 75 mmHg (80-95); iSTAT Carbon Dioxide 30 mmol/L (24-31); iSTAT FiO2 50 %; iSTAT Site L Brachial
[2021-06-15] MEDS: NITROGLYCERIN 2% OINTMENT 30GM TUBE EXT SCH ×4 (04:47→23:56)
[2021-06-15 05:31] LABS: BUN Creatinine Ratio 57.8 (10-20); Calcium 8.2 mg/dl (8.5-10.1); Creatinine Clr Calc Pharmacy 49.8 ml/min; Est GFR (African American) 80.7 ml/min; Est GFR (Non-African American) 69.6 ml/min; Magnesium 2.5 mg/dl (1.8-2.4); Phosphorus 5.7 mg/dl (2.5-4.9); Potassium 4.9 mmol/L (3.5-5.1)
[2021-06-15] MEDS: ICU ELECTROLYTE REPLACEMENT PROTOCOL SCH ×2 (05:40→18:05)
[2021-06-15] MEDS: methylPREDNISolone 40 MG in SYRINGE 0 ML IV SCH (06:00)
[2021-06-15 06:01] LABS: Appearance Urine Clear (Clear); Bacteria Urine Automated Negative (Negative); Bilirubin Urine Negative (Negative); Blood Urine 3+ (Negative); Color Urine Dark Yellow; Epithelial Cell Urine Auto >30 /lpf (0-5); Glucose Urine UA Negative (Negative); Ketones Urine Negative (Negative); Leukocyte Esterase Urine Negative (Negative); Nitrite Urine Negative (Negative); Protein Urine 1+ (Negative); RBC Urine Automated >30 /hpf (0-4); Specific Gravity Urine 1.024 (1.000-1.030); Urobilinogen Urine Negative (Negative)
[2021-06-15] MEDS ORDERED: LACTATED RINGER'S 1,000 ML IV SCH (06:15)
[2021-06-15] MEDS: BUDESONIDE 0.5 MG/2 ML VIAL (PULMICORT) NEB SCH ×2 (07:15→19:09)
[2021-06-15] MEDS: FORMOTEROL 20 MCG/2 ML VIAL NEB SCH ×2 (07:15→19:09)
[2021-06-15] MEDS: ALBUT/IPRATROP 3MG/0.5MG NEB 3 ML VIAL NEB SCH ×2 (07:15→11:19)
[2021-06-15] MEDS: PHENYTOIN 100 MG in SYRINGE 0 ML IV SCH ×3 (09:13→20:01)
[2021-06-15] MEDS: PANTOprazole 40 MG in SYRINGE 0 ML IV SCH ×2 (09:13→20:00)
[2021-06-15] MEDS: levETIRAcetam 1,000 MG in 0.9 % SODIUM CHLORIDE 100 ML IV SCH ×2 (09:14→20:01)
[2021-06-15] MEDS: FUROSEMIDE 40 MG in SYRINGE 0 ML IV SCH ×2 (09:18→17:00)
--- NOTE | 2021-06-15 09:50 | Cardiology Progress Note ---
Date of Service June 15, 2021 Assessment & Plan (1) Respiratory failure with hypoxia and hypercapnia: (2) Non-ST elevation IA (NSTEMI): (3) ACS (acute coronary syndrome): (4) GI bleed: Plan: Patient is an extremely complex 55-year-old female with recent clinical course notable for presentation with syncope and profound anemia. She presents this admission in acute respiratory distress and congestive heart failure secondary to myocardial ischemia. Recent history of GI bleed Patient underwent emergent cardiac catheterization study demonstrating right coronary occlusion and high-grade proximal LAD stenosis successfully intervened on with drug-eluting stent. LV systolic function severely impaired on follow-up echocardiogram. Patient's history is notable for vasospastic angina, chronic coronary artery disease and significant peripheral vascular disease in addition to above issues Plan, recommendations: The patient is currently hemodynamically stable. Blood pressure is better controlled. I would continue current treatment. Admission and Anticipated Discharge Date Admission Date: June 12, 2021 Subjective The patient had an uneventful night. She remains extubated. Somnolent but arousable. Review of Systems Review of Systems: Review of Systems: See HPI for pertinent positives. All other 10 point review of systems are negative.Patient not able to provide review of systems. Physical Exam Physical Exam: General: no acute distress and stated age Head: normocephalic, no masses, lesions, tenderness or abnormalities Eyes: conjunctiva are pink and non-injected, sclera clear Neck: supple, no adenopathy, no bruits, normal jugular venous pulse, no hepatojugular reflux Chest: normal shape and normal respiratory effort Lungs: clear to auscultation and percussion Cardiac Exam: - regular rate & rhythm, no murmurs gallops or rubs - normal S1, normal S2 Pulses: 2(+) throughout Abdomen: abdomen soft, non-tender, no abnormal masses and no hepatosplenomegaly Musculoskeletal: no gait disturbance, no joint inflammation, no deforming arthritis Extremities: no edema and no cyanosis Neuro: grossly normal exam Results & Data ([facility]) Vital Signs (Past 12 Hours) Vital Signs Temp Pulse Pulse Resp BP Pulse Ox 06/15/21 08:15 87 36 H 94 06/15/21 07:21 89 90 37 H 95 06/15/21 05:29 87 34 H 98 06/15/21 05:00 37.9 C H 79 28 H 127/71 06/15/21 04:47 85 124/89 06/15/21 04:00 38.1 C H 85 36 H 97 06/15/21 03:02 84 39 H 96 06/15/21 03:00 38.2 C H 82 37 H 118/70 94 06/15/21 02:00 38.2 C H 83 37 H 115/69 99 06/15/21 01:37 82 36 H 93 06/15/21 01:00 38.3 C H 82 37 H 119/73 96 06/15/21 00:30 87 128/71 06/15/21 00:00 38.4 C H 88 37 H 95 06/14/21 23:59 87 06/14/21 23:00 38.5 C H 88 38 H 93 06/14/21 22:58 87 41 H 91 06/14/21 22:00 38.4 C H 90 40 H 94 Laboratory Results Laboratory Results - last 24 hr 06/12/21 06/14/21 06/14/21 01:07 11:32 15:23 POC Hgb 9.9 L POC Hct 29 L Sample Site R Brachial POC pH 7.20 L POC pCO2 55 H POC pO2 41 L POC HCO3 21 POC Total CO2 23 L POC Base Excess -7.0 ABG pH ABG pH (Temp Correct) 7.191 L* ABG pCO2 ABG pCO2 (Temp Corrct 55 H ABG pO2 POC ABG pO2 at Pt Temp 42 ABG HCO3 POC ABG O2 Sat 64.0 L ABG O2 Saturation ABG Base Excess Navdeep Test Pass Barometric Pressure Oxygen Given O2 Delivery Device Hi Carmelo Can POC O2 Rate POC FiO2 55 IPAP POC Sodium 135 Sodium POC Potassium 6.6 H* Potassium Chloride Carbon Dioxide Anion Gap BUN Creatinine Est Cr Clr Drug Dosing Est GFR ( Amer) Est GFR (Non-Af Amer) BUN/Creatinine Ratio Glucose POC Glucose 110 H Calcium Phosphorus Magnesium Urine Color Urine Appearance Urine pH Ur Specific [place] Urine Protein Urine Glucose (UA) Urine Ketones Urine Blood Urine Nitrite Urine Bilirubin Urine Urobilinogen Ur Leukocyte Esterase Urine WBC (Auto) Urine RBC (Auto) U Hyaline Cast (Auto) U Epithel Cells (Auto) Urine Bacteria (Auto) Urine Butalbital NEGATIVE U Codeine Confrm GC/MS NEGATIVE Ur Morphine (GC/MS) 436 H Ur Hydrocodone (GC/MS) NEGATIVE Ur Norhydrocodone NEGATIVE Ur Noroxycodone NEGATIVE Urine Oxycodone (GC/MS) NEGATIVE U Oxymorphone GC/MS NEGATIVE Ur Hydromorphone (GC/MS) NEGATIVE Urine Amobarbital NEGATIVE Urine Pentobarbital NEGATIVE Urine Phenobarbital 896 H Urine Secobarbital NEGATIVE U Marijuana THC Carboxy 8 H Drug Screen Comment SEE NOTE 06/14/21 06/14/21 06/14/21 16:20 17:01 17:53 POC Hgb 9.9 L POC Hct 29 L Sample Site R Brachial POC pH 7.22 L POC pCO2 47 H POC pO2 204 H POC HCO3 19 POC Total CO2 21 L POC Base Excess -9.0 ABG pH ABG pH (Temp Correct) 7.214 L ABG pCO2 ABG pCO2 (Temp Corrct 47 H ABG pO2 POC ABG pO2 at Pt Temp 204 ABG HCO3 POC ABG O2 Sat 100.0 H ABG O2 Saturation ABG Base Excess Navdeep Test Pass Barometric Pressure Oxygen Given O2 Delivery Device BIPAP POC O2 Rate POC FiO2 100 IPAP 12 POC Sodium 135 Sodium 136 POC Potassium 6.0 H Potassium 6.0 H D Chloride 111 H Carbon Dioxide 7 L* Anion Gap 18.0 H BUN 37 H Creatinine 0.64 Est Cr Clr Drug Dosing 71.6 Est GFR ( Amer) 115.6 Est GFR (Non-Af Amer) 99.8 BUN/Creatinine Ratio 57.7 H Glucose 30 L* POC Glucose 93 Calcium 7.5 L Phosphorus Magnesium Urine Color Urine Appearance Urine pH Ur Specific [place] Urine Protein Urine Glucose (UA) Urine Ketones Urine Blood Urine Nitrite Urine Bilirubin Urine Urobilinogen Ur Leukocyte Esterase Urine WBC (Auto) Urine RBC (Auto) U Hyaline Cast (Auto) U Epithel Cells (Auto) Urine Bacteria (Auto) Urine Butalbital U Codeine Confrm GC/MS Ur Morphine (GC/MS) Ur Hydrocodone (GC/MS) Ur Norhydrocodone Ur Noroxycodone Urine Oxycodone (GC/MS) U Oxymorphone GC/MS Ur Hydromorphone (GC/MS) Urine Amobarbital Urine Pentobarbital Urine Phenobarbital Urine Secobarbital U Marijuana THC Carboxy Drug Screen Comment 06/14/21 06/14/21 06/14/21 19:11 19:23 20:57 POC Hgb POC Hct Sample Site POC pH POC pCO2 POC pO2 POC HCO3 POC Total CO2 POC Base Excess ABG pH 7.45 ABG pH (Temp Correct) ABG pCO2 34 L ABG pCO2 (Temp Corrct ABG pO2 65 L POC ABG pO2 at Pt Temp ABG HCO3 23 POC ABG O2 Sat ABG O2 Saturation 91.2 ABG Base Excess -0.3 Navdeep Test Pos Barometric Pressure 728.0 Oxygen Given 30% O2 Delivery Device POC O2 Rate POC FiO2 IPAP POC Sodium Sodium 140 POC Potassium Potassium 4.6 D Chloride 106 Carbon Dioxide 21 Anion Gap 13.0 H BUN 43 H Creatinine 0.89 Est Cr Clr Drug Dosing 51.5 Est GFR ( Amer) 84.0 Est GFR (Non-Af Amer) 72.5 BUN/Creatinine Ratio 48.0 H Glucose 121 H POC Glucose 135 H Calcium 8.4 L Phosphorus Magnesium Urine Color Urine Appearance Urine pH Ur Specific [place] Urine Protein Urine Glucose (UA) Urine Ketones Urine Blood Urine Nitrite Urine Bilirubin Urine Urobilinogen Ur Leukocyte Esterase Urine WBC (Auto) Urine RBC (Auto) U Hyaline Cast (Auto) U Epithel Cells (Auto) Urine Bacteria (Auto) Urine Butalbital U Codeine Confrm GC/MS Ur Morphine (GC/MS) Ur Hydrocodone (GC/MS) Ur Norhydrocodone Ur Noroxycodone Urine Oxycodone (GC/MS) U Oxymorphone GC/MS Ur Hydromorphone (GC/MS) Urine Amobarbital Urine Pentobarbital Urine Phenobarbital Urine Secobarbital U Marijuana THC Carboxy Drug Screen Comment 06/15/21 06/15/21 06/15/21 00:29 03:40 04:10 POC Hgb POC Hct Sample Site L Brachial POC pH 7.27 L POC pCO2 62 H POC pO2 75 L POC HCO3 28 H POC Total CO2 30 POC Base Excess 1.0 ABG pH ABG pH (Temp Correct) ABG pCO2 ABG pCO2 (Temp Corrct ABG pO2 POC ABG pO2 at Pt Temp ABG HCO3 POC ABG O2 Sat 92.0 ABG O2 Saturation ABG Base Excess Navdeep Test NA Barometric Pressure Oxygen Given O2 Delivery Device BIPAP POC O2 Rate 12 POC FiO2 50 IPAP 13 POC Sodium Sodium POC Potassium Potassium Chloride Carbon Dioxide Anion Gap BUN Creatinine Est Cr Clr Drug Dosing Est GFR ( Amer) Est GFR (Non-Af Amer) BUN/Creatinine Ratio Glucose POC Glucose 92 Calcium Phosphorus Magnesium Urine Color Dark Yellow Urine Appearance Clear Urine pH 5.0 Ur Specific [place] 1.024 Urine Protein 1+ H Urine Glucose (UA) Negative Urine Ketones Negative Urine Blood 3+ H Urine Nitrite Negative Urine Bilirubin Negative Urine Urobilinogen Negative Ur Leukocyte Esterase Negative Urine WBC (Auto) 5-10 H Urine RBC (Auto) >30 H U Hyaline Cast (Auto) 5-10 H U Epithel Cells (Auto) >30 H Urine Bacteria (Auto) Negative Urine Butalbital U Codeine Confrm GC/MS Ur Morphine (GC/MS) Ur Hydrocodone (GC/MS) Ur Norhydrocodone Ur Noroxycodone Urine Oxycodone (GC/MS) U Oxymorphone GC/MS Ur Hydromorphone (GC/MS) Urine Amobarbital Urine Pentobarbital Urine Phenobarbital Urine Secobarbital U Marijuana THC Carboxy Drug Screen Comment 06/15/21 06/15/21 04:33 06:00 POC Hgb POC Hct Sample Site POC pH POC pCO2 POC pO2 POC HCO3 POC Total CO2 POC Base Excess ABG pH ABG pH (Temp Correct) ABG pCO2 ABG pCO2 (Temp Corrct ABG pO2 POC ABG pO2 at Pt Temp ABG HCO3 POC ABG O2 Sat ABG O2 Saturation ABG Base Excess Navdeep Test Barometric Pressure Oxygen Given O2 Delivery Device POC O2 Rate POC FiO2 IPAP POC Sodium Sodium 140 POC Potassium Potassium 4.9 Chloride 108 H Carbon Dioxide 25 Anion Gap 7.0 BUN 53 H Creatinine 0.92 Est Cr Clr Drug Dosing 49.8 Est GFR ( Amer) 80.7 Est GFR (Non-Af Amer) 69.6 BUN/Creatinine Ratio 57.8 H Glucose 112 H POC Glucose 118 H Calcium 8.2 L Phosphorus 5.7 H Magnesium 2.5 H Urine Color Urine Appearance Urine pH Ur Specific [place] Urine Protein Urine Glucose (UA) Urine Ketones Urine Blood Urine Nitrite Urine Bilirubin Urine Urobilinogen Ur Leukocyte Esterase Urine WBC (Auto) Urine RBC (Auto) U Hyaline Cast (Auto) U Epithel Cells (Auto) Urine Bacteria (Auto) Urine Butalbital U Codeine Confrm GC/MS Ur Morphine (GC/MS) Ur Hydrocodone (GC/MS) Ur Norhydrocodone Ur Noroxycodone Urine Oxycodone (GC/MS) U Oxymorphone GC/MS Ur Hydromorphone (GC/MS) Urine Amobarbital Urine Pentobarbital Urine Phenobarbital Urine Secobarbital U Marijuana THC Carboxy Drug Screen Comment Medications Administered Current Inpatient Medications Albuterol (Albuterol Hfa 8 Gm Inhaler) 2 puffs INH Q4 PRN PRN Reason: Wheezing Stop: 07/12/21 04:37 Albuterol (Albut/Ipratrop 3mg/0.5mg Neb 3 Ml Vial) 3 ml NEB Q4R PRN PRN Reason: Wheezing Stop: 07/13/21 10:59 Last Admin: 06/15/21 03:01 Dose: 3 ml Documented by: Albuterol (Albut/Ipratrop 3mg/0.5mg Neb 3 Ml Vial) 3 ml NEB QIDR DENISSE Stop: 07/13/21 10:59 Last Admin: 06/15/21 07:15 Dose: Not Given Documented by: Aspirin (Aspirin 81 Mg Chew) 81 mg NG DAILY DENISSE Stop: 07/13/21 16:14 Last Admin: 06/14/21 11:15 Dose: Not Given Documented by: Atorvastatin Calcium (Atorvastatin 40 Mg Tab) 80 mg PO HS [facility] Stop: 07/12/21 20:59 Last Admin: 06/14/21 20:04 Dose: Not Given Documented by: Budesonide (Budesonide 0.5 Mg/2 Ml Vial (Pulmicort)) 0.5 mg NEB BIDR DENISSE Stop: 07/13/21 18:59 Last Admin: 06/15/21 07:15 Dose: 0.5 mg Documented by: Clopidogrel Bisulfate (Clopidogrel Bisulfate 75 Mg Tab) 75 mg PO QAM [facility] Stop: 07/13/21 16:14 Last Admin: 06/14/21 11:15 Dose: Not Given Documented by: Epinephrine HCl (Epinephrine Inj 1 Mg/Ml Amp) 0.3 mg IM UD PRN PRN Reason: Allergic Reaction Stop: 07/12/21 05:16 Ferrous Sulfate (Ferrous Sulfate 325 Mg Tab) 325 mg PO BIDM DENISSE Stop: 07/12/21 07:59 Last Admin: 06/14/21 16:33 Dose: 325 mg Documented by: Fluticasone Propionate (Fluticasone Propionate Na Spr 16 Gm Btl) 2 sprays NA DAILY DENISSE Stop: 07/12/21 08:59 Last Admin: 06/14/21 08:03 Dose: 2 sprays Documented by: Formoterol Fumarate (Formoterol 20 Mcg/2 Ml Vial) 20 mcg NEB BIDR [facility] Stop: 07/13/21 10:29 Last Admin: 06/15/21 07:15 Dose: 20 mcg Documented by: Gabapentin (Gabapentin 300 Mg Cap) 300 mg PO TID [facility] Stop: 07/12/21 08:59 Last Admin: 06/14/21 20:04 Dose: Not Given Documented by: Gabapentin (Gabapentin 600 Mg Tab) 600 mg PO TID [facility] Stop: 07/12/21 08:59 Last Admin: 06/14/21 20:04 Dose: Not Given Documented by: Phenytoin 100 mg/ Syringe 2 mls @ 1 mls/min IV TID [facility] Stop: 07/12/21 08:59 Last Admin: 06/14/21 20:00 Dose: 1 mls/min Documented by: Furosemide 40 mg/ Syringe 4 mls @ 4 mls/min IV BID17 [facility] Stop: 07/12/21 08:59 Last Admin: 06/14/21 16:33 Dose: 4 mls/min Documented by: Levetiracetam 1,000 mg/ Sodium (Chloride) 110 mls @ 440 mls/hr IV BID [facility] Stop: 07/13/21 08:59 Last Infusion: 06/14/21 21:05 Dose: Infused Documented by: Methylprednisolone 40 mg/ (Syringe) 0.64 mls @ 1.5 mls/min IV Q8H [facility] Stop: 07/13/21 14:59 Last Admin: 06/15/21 06:00 Dose: 1.5 mls/min Documented by: Pantoprazole Sodium 40 mg/ (Syringe) 10 mls @ 5 mls/min IV BID@0900,2100 [facility] Stop: 07/14/21 20:59 Last Admin: 06/14/21 20:00 Dose: 5 mls/min Documented by: Ampicillin Sodium/Sulbactam Sodium 1,500 mg/ Sodium Chloride 104 mls @ 200 mls/hr IV Q6H [facility]; Protocol Stop: 06/21/21 19:59 Last Infusion: 06/15/21 03:04 Dose: Infused Documented by: Acetaminophen (Ofirmev) 1,000 mg in 100 mls @ 400 mls/hr IV Q8H PRN PRN Reason: Fever Stop: 06/17/21 22:07 Last Infusion: 06/15/21 02:40 Dose: Infused Documented by: Lactated Ringer's (Lr) 1,000 mls @ 70 mls/hr IV .[id number] [facility] Stop: 07/15/21 06:14 Last Admin: 06/15/21 06:42 Dose: 70 mls/hr Documented by: Insulin Aspart (Insulin Aspart 100 Units/Ml 3 Ml Pen) 0 units SC Q6 [facility]ISSE Stop: 07/13/21 11:59 Last Admin: 06/15/21 06:01 Dose: Not Given Documented by: Isosorbide Dinitrate (Isosorbide Dinitrate 5 Mg Tab) 5 mg PO Q3H PRN PRN Reason: chest pain Stop: 07/12/21 04:37 Isosorbide Mononitrate (Isosorbide [place] Extended Rel 60 Mg Tabcr) 120 mg PO BID [facility] Stop: 07/12/21 08:59 Last Admin: 06/12/21 08:32 Dose: Not Given Documented by: Lisinopril (Lisinopril 2.5 Mg Tab) 2.5 mg PO DAILY [facility] Stop: 07/14/21 08:59 Last Admin: 06/14/21 11:15 Dose: Not Given Documented by: Loratadine (Loratadine 10 Mg Tab) 10 mg PO DAILY [facility] Stop: 07/12/21 08:59 Last Admin: 06/14/21 11:16 Dose: Not Given Documented by: Metoprolol Tartrate (Metoprolol Tartrate 1 Mg/Ml Vial) 2.5 mg IV Q4 [facility] Stop: 07/14/21 11:59 Last Admin: 06/15/21 04:47 Dose: 2.5 mg Documented by: Miscellaneous (Icu Electrolyte Replacement Protocol) 1 ea N/A BID@,18 [facility]; Protocol Stop: 06/19/21 17:59 Last Admin: 06/15/21 05:40 Dose: 1 ea Documented by: Nitroglycerin (Nitroglycerin 2% Ointment 30gm Tube) 0.5 inch EXT Q6H [facility] Stop: 07/14/21 11:14 Last Admin: 06/15/21 04:47 Dose: 0.5 inch Documented by: Potassium Chloride (Potassium Chloride Crtab 20 Meq Tabcr) 40 meq PO DAILY [facility] Stop: 07/12/21 08:59 Last Admin: 06/14/21 11:16 Dose: Not Given Documented by: Prazosin HCl (Prazosin Hcl 1 Mg Cap) 1 mg PO BID [facility]IS[facility] Stop: 07/12/21 08:59 Last Admin: 06/14/21 20:04 Dose: Not Given Documented by: Primidone (Primidone 50 Mg Tab) 50 mg PO TID [facility]IS[facility] Stop: 07/12/21 08:59 Last Admin: 06/14/21 20:04 Dose: Not Given Documented by: Sodium Chloride (Sodium Chloride 0.9% 10ml Flush) 20 ml IV TID [facility]ISSE Stop: 07/12/21 08:59 Last Admin: 06/14/21 20:04 Dose: 20 ml Documented by: (1) Respiratory failure with hypoxia and hypercapnia Chronicity: acute on chronic Qualified Code(s): J96.21 - Acute and chronic respiratory failure with hypoxia; J96.22 - Acute and chronic respiratory failure with hypercapnia
[2021-06-15] MEDS ORDERED: PROPOFOL IV EMULSION 10 MG/ML 100 ML VIAL IV ONE (10:16)
[2021-06-15] MEDS ORDERED: ETOMIDATE 2 MG/ML 20 ML VIAL IV ONE (10:17)
[2021-06-15] MEDS: FERROUS SULFATE 325 MG TAB PO SCH (10:30)
--- NOTE | 2021-06-15 11:03 | Procedure Note ---
Procedure Note Date of Service June 15, 2021 Note INTUBATION PROCEDURE NOTE: Provider: Javon Collins MD Procedure was emergent Patient was evaluated and required intubation for respiratory arrest. Sedative agent used: None Paralysis agent used: None Emergent consent was implied given patients rapidly declining clinical status and need for airway protection. Patient was found to have agonal respirations and bradycardic. Video laryngoscopy was performed without any sedatives or medications. Vocal cords were able to be visualized. A 7.5 endotracheal tube was seen passing cords. Bilateral breath sounds were auscultated. Tubing sting was detected. Capnography was positive. Once she was intubated, oxygen saturations improved. They had decreased down to about 50% during the period of the respiratory arrest. She never lost pulses and never required CPR. Bradycardia resolved with improvement in oxygenation and ventilation. Given her recurrent respiratory failure and third intubation, will consent family for percutaneous tracheostomy. Coding CPT Codes Resuscitation - Resuscitation: 52773 Endotracheal Intubation, emergency ([id number]) [facility] Procedure Codes (Charges) Resuscitation Resuscitation: 19707 Endotracheal Intubation, emergency
--- NOTE | 2021-06-15 11:18 | Critical Care Progress Note ---
Date of Service June 15, 2021 Assessment & Plan (1) Non-ST elevation OK (NSTEMI): Plan: Reason Critically Ill: 55-year-old female presents to the ICU following event of acute coronary syndrome resulting in acute HFrEF with hypoxic hypercapnic respiratory failure requiring emergent intubation. Now post cardiac catheter she received a single drug-eluting stent to the proximal LAD for 90% stenosis and is also being monitored for a GIB and acute hypoxic/hypercapnic respiratory failure, likely secondary to component of acute CHF and severe underlying COPD. She is hemodynamically stable. 24-hour events: Patient has been intermittently on and off BiPAP. She continues to have issues with respiratory distress. She does intermittently respond to basic positive pressure ventilation but overall appears to be declining. We have transitioned her to high flow oxygen earlier today. She lasted for about 45 minutes and then was transitioned back to bilevel. I was called back to bedside to evaluate patient as she was becoming bradycardic despite bilevel. She had a decreased level of consciousness and she was intubated immediately in the face of respiratory arrest. Recommendations: Neuro -continue Keppra phenytoin primidone. Currently sedated on propofol. Continue Neurontin for her peripheral neuropathy. She is profoundly deconditioned and will require aggressive therapy PT OT and likely long-term acute care rehab. Cardiac -status post ST elevation OK with drug-eluting stent to the proximal LAD. Continue aspirin Plavix Lipitor and HAILEY inhibitor. Appreciate cardiology assistance. She is been hemodynamically stable. Continue gentle Lasix as tolerated. History of Prinzmetal's angina but holding nitrates and calcium channel blockers currently. Respiratory -likely underlying COPD with recurrent episodes of hypoxemic and hypercapnic respiratory failure. She has failed noninvasive positive pressure ventilation again and this is her third intubation this hospitalization. She is so weak and deconditioned at this point time that I think proceeding with a tracheostomy is the safest way to wean her from the mechanical ventilator. We will continue duo nebs, Perforomist, and budesonide. Hold steroids at this point time. Follow-up chest x-ray post intubation. GI -patient had melanotic stools. She is seen in consultation by GI. They recommended conservative management given her frail medical status and recent acute myocardial infarction. Continue Protonix twice daily. Will place enteric access and initiate tube feeds at this point time. Check prealbumin. Nutrition consult. RENAL/LYTES - Respiratory alkalosis with metabolic alkalosis - suspect primarily due to respiratory rate at this point, alongside posthypercapnic renal effect. CPAP and respiratory therapies as above. Will continue to monitor. - Foleystrict I's and O's -- ENDO -glycemic control per protocol HEME -GI bleed. Anemia stable. No evidence of ongoing bleeding. Continue to follow. ID -day #2 Unasyn for suspected aspiration pneumonia. Urine growing lactobacillus. Will check tracheal aspirate. Follow-up chest x-ray LINES/IV ACCESS - Peripheral IVs. Access is limited due to patient's severe peripheral vascular disease. DVT PROPHYLAXIS - SCDs, holding anticoagulation in the setting of GIB Patient remains critically ill. She is at significant risk of clinical deterioration or . was updated yesterday and will update them again by phone today. A total of 50 minutes in critical care time exclusive of procedures was spent evaluation management of this patient. 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: Admission and Anticipated Discharge Date Admission Date: June 12, 2021 Review of Systems Review of Systems: Unobtainable due to reduced consciousness Physical Exam Constitutional: + cachectic, + frail appearing and + lethargic Neck: trachea midline, no thyromegaly Post carotid endarterectomy Respiratory: + uses accessory muscles and + tachypneic Auscultation: + rales and + wheezes Cardiovascular: RRR, no murmur, no edema Gastrointestinal (Abdomen): normal bowel sounds, soft, nontender, no hepatosplenomegaly Musculoskeletal: Extremities: extremities normal to inspection Skin: no rashes, warm and dry Neurologic: Nonfocal exam Lymphatic: no cervical lymphadenopathy Results & Data Results & Data ([facility]) Vital Signs (Past 12 Hours) Vital Signs Temp Pulse Pulse Resp BP Pulse Ox 06/15/21 08:15 87 36 H 94 10/16/21 07:21 89 90 37 H 95 10/16/21 05:29 87 34 H 98 06/15/21 05:00 37.9 C H 79 28 H 127/71 06/15/21 04:47 85 124/89 06/15/21 04:00 38.1 C H 85 36 H 97 06/15/21 03:02 84 39 H 96 06/15/21 03:00 38.2 C H 82 37 H 118/70 94 06/15/21 02:00 38.2 C H 83 37 H 115/69 99 06/15/21 01:37 82 36 H 93 06/15/21 01:00 38.3 C H 82 37 H 119/73 96 06/15/21 00:30 87 128/71 06/15/21 00:00 38.4 C H 88 37 H 95 06/14/21 23:59 87 Critical Care Results & Data Vital Signs (Past 12 Hours) Vital Signs Temp Pulse Pulse Resp BP Pulse Ox 06/15/21 08:15 87 36 H 94 06/15/21 07:21 89 90 37 H 95 06/15/21 05:29 87 34 H 98 06/15/21 05:00 37.9 C H 79 28 H 127/71 06/15/21 04:47 85 124/89 06/15/21 04:00 38.1 C H 85 36 H 97 06/15/21 03:02 84 39 H 96 06/15/21 03:00 38.2 C H 82 37 H 118/70 94 06/15/21 02:00 38.2 C H 83 37 H 115/69 99 06/15/21 01:37 82 36 H 93 06/15/21 01:00 38.3 C H 82 37 H 119/73 96 06/15/21 00:30 87 128/71 06/15/21 00:00 38.4 C H 88 37 H 95 06/14/21 23:59 87 Lab & Micro Results (Past 24 Hours) No Data to Display Na 140 mmol/L (136-145) 06/15/21 K 4.9 mmol/L (3.5-5.1) 06/15/21 Cl 108 mmol/L (98-107) H 06/15/21 CO2 25 mmol/L (21-32) 06/15/21 Anion Gap 7.0 (3-11) 06/15/21 BUN 53 mg/dl (7-18) H 06/15/21 Creatinine 0.92 mg/dl (0.6-1.2) 06/15/21 Estimated GFR ( Amer) 80.7 ml/min 06/15/21 Estimated GFR (Non-Af Amer) 69.6 ml/min 06/15/21 BUN/Creatinine Ratio 57.8 (10-20) H 06/15/21 Glu 112 mg/dl (70-99) H 06/15/21 Ca 8.2 mg/dl (8.5-10.1) L 06/15/21 Phosphorus Level 5.7 mg/dl (2.5-4.9) H 06/15/21 Mg 2.5 mg/dl (1.8-2.4) H 06/15/21 04:33 06/15/21 Calcium Level 8.2 mg/dl (8.5-10.1) L 06/15/21 04:33 06/15/21 Blood Gas Barometric Pressure 728.0 mm/Hg 06/14/21 20:57 06/14/21 Arterial Blood pH 7.45 (7.35-7.45) 06/14/21 20:57 06/14/21 Arterial Blood Partial Pressure CO2 34 mmHg (35-46) L 06/14/21 20:57 06/14/21 Arterial Blood Partial Pressure O2 65 mmHg (80-95) L 06/14/21 20:57 06/14/21 Arterial Blood HCO3 23 mmol/L (19-24) 06/14/21 20:57 06/14/21 Arterial Blood Base Excess -0.3 mEq/L (-9-1.8) 06/14/21 20:57 06/14/21 Arterial Blood Oxygen Saturation 91.2 % (90-95) 06/14/21 20:57 06/14/21 Blood Gas Oxygen Given 30% 06/14/21 20:57 06/14/21 Navdeep Test NA 06/15/21 03:40 06/15/21 Blood Gas Barometric Pressure 728.0 mm/Hg 06/14/21 20:57 06/14/21 Microbiology 06/12/21 01:07 Urine Culture - Final Urine,Straight Cath Lactobacillus species Diagnostic Findings (Past 24 Hours) Chest X-Ray 06/14/21 09:35 XR chest 1V portable HISTORY: 55 years-old Female sob acute shortness of breath. COMPARISON: Chest radiograph 06/13/2021 TECHNIQUE: AP view of the chest FINDINGS: Left subclavian pacer/AICD. Calcified plaque of the thoracic aorta. Cardiac mediastinal and hilar silhouettes are unchanged. Interval extubation with removal of the enteric tube. Pulmonary edema with trace pleural effusions. Progressively worsened bibasilar opacities. No acute fracture. IMPRESSION: 1. Interval extubation with removal of the enteric tube. 2. Mildly progressed pulmonary edema with bibasilar opacities. 3. Small pleural effusions. ACT 112: Negative or not required by law. The above report was generated using voice recognition software. It may contain grammatical, syntax or spelling errors. Electronically signed by: Freeman Nelson M.D. 06/14/2021 12:19 PM I & O Totals 24 Hours 06/14/21 06/15/21 06/16/21 06:59 06:59 06:59 Intake Total 801.333 / 575.052 1722.498 / 1325.498 Output Total 3581 / 3581 1337 / 1337 Balance -2779.667 / -2779.667 -11.502 / -11.502 Cumulative 06/11/21 23:19 thru 06/15/21 06:12 Intake Total 4883.980 Output Total 7446 Balance -2562.020 RT Ventilator Mngmt (Last Documented) Ventilator Ordered Settings Ventilator Support Mode Assist Control 06/13/21 13:35 Respiratory Rate 36 06/15/21 08:15 Ventilator Tidal Volume 350 06/13/21 13:35 Setting Minute Ventilation 9.6 06/13/21 13:35 Positive End Expiratory 5 06/13/21 13:35 Pressure Fraction of Inspired Oxygen 70 06/15/21 08:15 Machine Comment increased to 50%O2 for low SPO2 06/13/21 05:44 Ventilator - PT Measurements Respiratory Rate 36 Exhaled Tidal Volume 350 Minute Ventilation 9.6 Peak Inspiratory Airway 18 Pressure Plateau Pressure 13.9 Respiratory Cycle Inspiratory: 1:2.5 Expiratory Ratio Inspiratory Phase Time 0.65 End-Tidal CO2 24 Static Lung Compliance 39.33 Dynamic Lung Compliance 26.92 Normal Static Lung Compliance 47.00 Patient Measurements Comment Pt self-extubated, Dr. Collins at bedside. Pt NT sx and placed on Oxymask. Coding Level of Care Code Critical Care 1st 30-74 mins Diagnoses Non-ST elevation OK (NSTEMI) I21.4 CHF (congestive heart failure) I50.9 Heart failure chronicity: acute Heart failure type: unspecified GI bleed K92.2 Acidemia E87.2 Respiratory failure with hypoxia and hypercapnia J96.21; J96.22 Chronicity: acute on chronic Pacemaker Z95.0 Anemia D64.89 Anemia type: other cause Other causes of anemia: other cause, not classified Syncope R55 Syncope type: unspecified H/O diastolic dysfunction Z86.79 PAD (peripheral artery disease) I73.9 Presence of stent in LAD coronary artery Z95.5 Cellulitis L03.90 Prinzmetal angina I20.1 Postoperative deep vein thrombosis T81.89XA; I82.409 Steinert myotonic dystrophy syndrome G71.11 (1) CHF (congestive heart failure) Heart failure chronicity: acute Heart failure type: unspecified Qualified Code(s): I50.9 - Heart failure, unspecified (2) Respiratory failure with hypoxia and hypercapnia Chronicity: acute on chronic Qualified Code(s): J96.21 - Acute and chronic respiratory failure with hypoxia; J96.22 - Acute and chronic respiratory failure with hypercapnia (3) Anemia Anemia type: other cause Other causes of anemia: other cause, not classified Qualified Code(s): D64.89 - Other specified anemias (4) Syncope Syncope type: unspecified Qualified Code(s): R55 - Syncope and collapse
--- NOTE | 2021-06-15 11:43 | XRay Report ---
XR chest 1V portable HISTORY: intubation COMPARISON: Chest 06/14/2021. FINDINGS: Endotracheal tube terminates 4.1 cm from the vaughn. Nasogastric tube terminates below the diaphragm. The tip is not included on this study. Left-sided pacemaker. No pneumothorax. Small left p leural effusion and left basilar densities persist. There is improved aeration within the lungs. The heart remains borderline enlarged. IMPRESSION: 1. Satisfactory support line placement. 2. Left basilar airspace opacity/effusion persists. 3. Overall, improved aeration within the lungs compared to the prior study. ACT 112: Negative or not required by law. Electronically signed by: Robert Godoy M.D. 06/15/2021 11:42 AM
[2021-06-15] MEDS ORDERED: POTASSIUM CHLORIDE 20 MEQ/15 ML UDC PO ONE (12:00)
[2021-06-15] MEDS ORDERED: FERROUS SULFATE 325 MG/7.4 ML UDP PO ONE (12:00)
[2021-06-15] MEDS: GABAPENTIN 250 MG/5 ML 470 ML BTL PO SCH ×2 (13:18→19:59)
[2021-06-15] MEDS: SODIUM CHLORIDE 0.9% 10ML FLUSH IV SCH ×3 (13:20→20:03)
[2021-06-15] MEDS: FLUTICASONE PROPIONATE NA SPR 16 GM BTL SCH (13:26)
[2021-06-15] MEDS: ASPIRIN 81 MG CHEW NG SCH (13:30)
[2021-06-15] MEDS: LORATADINE 10 MG TAB PO SCH (13:30)
[2021-06-15] MEDS: PRAZOSIN HCL 1 MG CAP PO SCH ×2 (13:31→20:02)
[2021-06-15] MEDS: PRIMIDONE 50 MG TAB PO SCH ×3 (13:31→20:03)
[2021-06-15] MEDS: lisinopril 2.5 MG TAB PO SCH (13:33)
[2021-06-15] MEDS: CLOPIDOGREL BISULFATE 75 MG TAB PO SCH (13:33)
[2021-06-15] MEDS: TUBE FEEDING WATER FLUSH GT SCH ×3 (13:41→20:03)
[2021-06-15 13:49] LABS: iSTAT Arterial Blood Gas HCO3 26 meg/L (19-24); iSTAT Arterial Blood Gas pCO2 33 mmHg (35-46); iSTAT Arterial Blood Gas pH 7.51 (7.35-7.45); iSTAT Arterial Blood Gas pO2 66 mmHg (80-95); iSTAT Carbon Dioxide 27 mmol/L (24-31); iSTAT FiO2 50 %; iSTAT Site R Brachial
[2021-06-15] MEDS: THIAMINE HCL 100 MG in SYRINGE 9 ML IV SCH (14:32)
[2021-06-15] MEDS: FERROUS SULFATE 325 MG/7.4 ML UDP PO SCH (17:00)
[2021-06-15] MEDS ORDERED: FERROUS SULFATE 325 MG/7.4 ML UDP PO SCH (17:00)
--- NOTE | 2021-06-15 18:12 | Hospitalist Progress Note ---
Date of Service June 15, 2021 delayed entry date of service noted above Assessment & Plan (1) Non-ST elevation OR (NSTEMI): Plan: ASSESSMENT AND PLAN: This is a 55-year-old female who presents with agitation, chest pain, pain all over and found to be with non-ST elevated myocardial infarction and congestive heart failure. 1. Respiratory Distress: The patient is s/p intubation and mechanical ventilation, possibly secondary to congestive heart failure, received Lasix in ER -- self extubated 06/14 -- reintubated 06/15 Vent management per Equipment Operating Engineer service Possible Aspiration Pneumonia -- on Unasyn 2. Non-ST elevated myocardial infarction: Status post cardiac catheterization and stent to the proximal LAD lesion, post-cath care as per cardiology. Ischemic Cardiomyopathy -- s/p Cardiac Cath 06/[address] Hinojosa: 1. Severe multivessel vessel coronary artery disease -90% possibly acute proximal LAD stenosis. Patent mid LAD stent 100% chronic mid RCA occlusion. Distal vessel fills via [id number] collaterals. 2. Elevated intracardiac filling pressure. LVEDP 34 3. Severe obstructive abdominal aortic disease (unable to pass 5 Fr catheter across stenosis). 4. Successful PCI of proximal to mid LAD with single drug-eluting stent (3.0 x 18 mm Notrees; postdilated with 3.5 NC, overlaps proximal aspect of prior stent). Echo: 25-30% extensive wall motion abnormalities with the inferior wall being akinetic at the base on ASA, Plavix, Imdur-->changed to Nitropaste, IV Metoprolol, Lisinopril, Lipitor on Lasix 40mg IV BID continue 3. Anemia, possible GI bleed -- Hemoglobin was 5.4 last admission, required 4 units of PRBCs. Currently hemoglobin is 8.7. ER started on Protonix drip today which will continue. -- s/p 1 unit pRBC given -- Hg 10 -- GI not recommending EGD/Colonoscopy due to above given Protonix drip , transition to IV BID 4. Possible urinary tract infection -- blood and urine cultures negative so far 5. Elevated lactic acid and acidosis: Most likely from the acute coronary syndrome and respiratory distress. -- improved 6. The patient is on chronic pain medication. The patient is on high dose of pain medication at home, which will be held. Will place on IV Dilaudid p.r.n. as the patient is currently intubated and sedated and getting propofol. 7. History of coronary artery disease. History of LAD stenting in the past as well as vasospastic angina 8. History of VT arrest due to coronary artery vasospasm versus acquired QT prolongation possible of azithromycin exposure, status post single chamber AICD. 9. History of peripheral vascular disease, superficial femoral artery occlusion, left subclavian artery stenosis. on aspirin and Plavix. 10. History of myotonic muscular dystrophy. PT, OT when stable. 11. History of pulmonary embolism. Coumadin was discontinued due to GI bleed in 2019. 12. History of left carotid endarterectomy in 2015. 13. History of chronic obstructive pulmonary disease: Continue her home inhalers. 14. History of seizures: On Keppra and phenytoin, which will be changed to IV.Dose adjustment of keppra per Pharmacy for renal function. 15. History of diastolic congestive heart failure: per above 16. History of hypertension: 17. History of deep venous thrombosis prophylaxis: Will place on sequential compression devices for now because of possible gastrointestinal bleed. 18. 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 of Systems Review of Systems: all noted and negative except for above Physical Exam Physical Exam: General- sedated, not in distress, breathing with no effort or accessory muscle use Eyes- anicteric Neck- no JVD Lungs- (+) mild rhonchi anteriorly Heart- normal rate, regular rhythm; no murmurs Abdomen- normal bowel sounds, nondistended, soft, nontender Extremities- no pretibial edema, no calf tenderness Neuro-sedated; no new gross focal neurologic deficits Skin- warm & dry Results & Data Results & Data ([facility]) Vital Signs (Past 12 Hours) Vital Signs Temp Pulse Pulse Resp BP Pulse Ox 06/15/21 18:00 37.3 C 76 31 H 97/62 L 93 06/15/21 17:00 37.6 C H 76 37 H 88 L 06/15/21 16:57 81 95/60 L 06/15/21 16:00 37.8 C H 77 35 H 06/15/21 15:20 80 31 H 100 06/15/21 15:00 38.0 C H 78 25 H 95 06/15/21 14:30 38.0 C H 82 30 H 100 06/15/21 14:00 38.0 C H 82 29 H 128/77 100 06/15/21 13:30 37.9 C H 77 26 H 100 06/15/21 13:00 37.8 C H 88 34 H 100 06/15/21 12:30 37.7 C H 85 29 H 06/15/21 12:00 37.6 C H 86 27 H 100 06/15/21 11:30 37.6 C H 77 30 H 100 06/15/21 11:00 37.6 C H 74 27 H 113/62 100 06/15/21 10:30 37.9 C H 88 29 H 97 06/15/21 10:00 38.2 C H 77 36 H 83 L 06/15/21 09:50 78 36 H 78 L 06/15/21 09:30 38.3 C H 74 38 H 89 L 06/15/21 09:00 38.2 C H 90 33 H 96 06/15/21 08:30 38.2 C H 86 33 H 139/80 100 06/15/21 08:15 87 36 H 94 06/15/21 08:00 38.0 C H 89 35 H 06/15/21 07:30 37.9 C H 89 38 H 95 06/15/21 07:21 89 90 37 H 95 06/15/21 07:00 37.8 C H 88 35 H 89 L all noted and reviewed including below
[2021-06-15] MEDS ORDERED: PROPOFOL BOLUS FROM BAG IV PRN (19:02)
[2021-06-15] MEDS ORDERED: STAT IV Infusion **Titration per Protocol STA (19:02)
[2021-06-15] MEDS: propofoL 1,000 MG/100 ML VIAL IV SCH (19:59)
[2021-06-15] MEDS: ATORVASTATIN 40 MG TAB PO SCH (20:04)
[2021-06-15] MEDS: GABAPENTIN 300 MG CAP PO SCH (20:59)
[2021-06-15] MEDS: POTASSIUM CHLORIDE CRTAB 20 MEQ TABCR PO SCH (21:00)
[2021-06-15] MEDS: GABAPENTIN 600 MG TAB PO SCH (21:00)
[2021-06-15] MEDS ORDERED: LACTATED RINGER'S 250 ML IV ONE (23:18)
[2021-06-15] MEDS: LACTATED RINGER'S 1,000 ML IV SCH (23:56)
[2021-06-16] MEDS: INSULIN ASPART 100 UNITS/ML 3 ML PEN SC SCH ×4 (00:40→18:22)
[2021-06-16] MEDS: METOPROLOL TARTRATE 1 MG/ML VIAL IV SCH ×6 (00:41→19:53)
[2021-06-16] MEDS: TUBE FEEDING WATER FLUSH GT SCH ×6 (00:41→21:13)
[2021-06-16] MEDS ORDERED: LACTATED RINGER'S 250 ML IV ONE (01:04)
[2021-06-16] MEDS: AMPICILLIN/SULBACTAM SOD 1,500 MG in 0.9 % SODIUM CHLORIDE 100 ML IV SCH ×4 (02:41→19:49)
[2021-06-16] MEDS: NITROGLYCERIN 2% OINTMENT 30GM TUBE EXT SCH ×3 (05:16→16:24)
[2021-06-16 06:28] LABS: Albumin Globulin Ratio 0.5 (0.9-2); Albumin Level 1.7 gm/dl (3.4-5.0); Bilirubin,Total 0.6 mg/dl (0.2-1); Calcium 6.9 mg/dl (8.5-10.1); Creatinine Clr Calc Pharmacy 72.9 ml/min; Est GFR (African American) 116.2 ml/min; Est GFR (Non-African American) 100.3 ml/min; Globulin 3.2 gm/dl (2.5-4.0); Total Protein 4.9 gm/dl (6.4-8.2)
[2021-06-16 06:54] LABS: Phosphorus 2.3 mg/dl (2.5-4.9)
[2021-06-16] MEDS: FORMOTEROL 20 MCG/2 ML VIAL NEB SCH ×2 (07:31→19:15)
[2021-06-16] MEDS: BUDESONIDE 0.5 MG/2 ML VIAL (PULMICORT) NEB SCH ×2 (07:31→19:15)
[2021-06-16] MEDS: FERROUS SULFATE 325 MG/7.4 ML UDP PO SCH ×2 (08:14→16:24)
[2021-06-16] MEDS: LORATADINE 10 MG TAB PO SCH (08:16)
[2021-06-16] MEDS: SODIUM CHLORIDE 0.9% 10ML FLUSH IV SCH ×3 (08:16→19:53)
[2021-06-16] MEDS: FLUTICASONE PROPIONATE NA SPR 16 GM BTL SCH (08:17)
[2021-06-16] MEDS: ASPIRIN 81 MG CHEW NG SCH (08:17)
[2021-06-16] MEDS: CLOPIDOGREL BISULFATE 75 MG TAB PO SCH (08:17)
[2021-06-16] MEDS: levETIRAcetam 1,000 MG in 0.9 % SODIUM CHLORIDE 100 ML IV SCH ×2 (08:18→20:39)
[2021-06-16] MEDS: GABAPENTIN 250 MG/5 ML 470 ML BTL PO SCH ×3 (08:18→19:55)
[2021-06-16] MEDS: FUROSEMIDE 40 MG in SYRINGE 0 ML IV SCH ×2 (08:18→16:24)
[2021-06-16] MEDS: lisinopril 2.5 MG TAB PO SCH (08:19)
[2021-06-16] MEDS: PANTOprazole 40 MG in SYRINGE 0 ML IV SCH ×2 (08:19→19:49)
[2021-06-16] MEDS: PRIMIDONE 50 MG TAB PO SCH ×3 (08:20→21:12)
[2021-06-16] MEDS: PHENYTOIN 100 MG in SYRINGE 0 ML IV SCH ×3 (08:20→19:49)
[2021-06-16] MEDS: PRAZOSIN HCL 1 MG CAP PO SCH ×2 (08:20→21:12)
--- NOTE | 2021-06-16 08:20 | Critical Care Progress Note ---
Date of Service June 16, 2021 Assessment & Plan (1) Non-ST elevation MA (NSTEMI): Plan: Reason Critically Ill: 55-year-old female presents to the ICU following event of acute coronary syndrome resulting in acute HFrEF with hypoxic hypercapnic respiratory failure requiring emergent intubation. Now post cardiac catheter she received a single drug-eluting stent to the proximal LAD for 90% stenosis and is also being monitored for a GIB and acute hypoxic/hypercapnic respiratory failure, likely secondary to component of acute CHF and severe underlying COPD. She is hemodynamically stable. 24-hour events: Patient reintubated yesterday. She been hemodynamically stable overnight. Discussed events with patient's spouse. Consented for tracheostomy given her third intubation this hospitalization. Recommendations: Neuro -continue Keppra phenytoin primidone. Currently sedated on propofol. Continue Neurontin for her peripheral neuropathy. She is profoundly deconditioned and will require aggressive therapy PT OT and likely long-term acute care rehab. Will discuss with case management referral to LTAC Cardiac -status post ST elevation MA with drug-eluting stent to the proximal LAD. Continue aspirin Plavix Lipitor and HAILEY inhibitor. Appreciate cardiology assistance. She is been hemodynamically stable. Continue gentle Lasix as tolerated. History of Prinzmetal's angina but holding nitrates and calcium channel blockers currently. Respiratory -likely underlying COPD with recurrent episodes of hypoxemic and hypercapnic respiratory failure. She has failed noninvasive positive pressure ventilation again and this is her third intubation this hospitalization. She is so weak and deconditioned and will plan on proceeding with bedside percutaneous dilatation of tracheostomy today to facilitate weaning from the ventilator and improve pulmonary toilet. We will perform bronchoscopy with therapeutic aspiration of secretions and sent for culture at the time of tracheostomy. We will continue duo nebs, Perforomist, and budesonide. Hold steroids at this point time. GI -patient had melanotic stools. She is seen in consultation by GI. They recommended conservative management given her frail medical status and recent acute myocardial infarction. Continue Protonix twice daily. Will need enteric access with NGT once trach done. Appreciate nutritional consultation and assistance. On thiamine for potential refeeding syndrome RENAL/LYTES -labs are being rerun today as there were multiple abnormalities. Continue electrolyte replacement as needed. - Foleystrict I's and O's ENDO -glycemic control per protocol HEME -GI bleed. Anemia stable, no indication for transfusion. No evidence of ongoing bleeding. Continue to follow. ID -day #3 Unasyn for suspected aspiration pneumonia. Urine growing lactobacillus. We will collect lower respiratory specimens for microbiologic analysis at the time of tracheostomy. LINES/IV ACCESS - Peripheral IVs. Access is limited due to patient's severe peripheral vascular disease. DVT PROPHYLAXIS - SCDs, holding anticoagulation in the setting of GIB Patient remains critically ill. She is at significant risk of clinical deterioration or . was updated yesterday at bedside and will update him again by phone today. A total of 45 minutes in critical care time exclusive of procedures was spent evaluation management of this patient. 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 Review of Systems Review of Systems: Unobtainable due to endotracheal tube Physical Exam Constitutional: + cachectic and + frail appearing ENMT: ETT, OGT Neck: trachea midline, no thyromegaly Respiratory: Auscultation: + rales and + wheezes intubated Cardiovascular: RRR, no murmur, no edema Gastrointestinal (Abdomen): normal bowel sounds, soft, nontender, no hepatosplenomegaly Musculoskeletal: Extremities: extremities normal to inspection Skin: no rashes, warm and dry Lymphatic: no cervical lymphadenopathy Results & Data Results & Data ([facility]) Vital Signs (Past 12 Hours) Vital Signs Temp Pulse Resp BP Pulse Ox 06/16/21 07:35 72 24 94 06/16/21 06:00 36.7 C 70 27 H 118/66 93 06/16/21 05:00 36.4 C L 75 26 H 115/61 93 06/16/21 04:00 36.6 C 73 28 H 112/62 90 06/16/21 03:00 36.6 C 69 20 112/62 93 06/16/21 02:02 74 22 91 06/16/21 02:00 35.9 C L 79 18 97/55 L 89 L 06/16/21 01:00 36.8 C 68 29 H 88/53 L 91 06/16/21 00:00 36.9 C 67 27 H 93/57 L 92 06/15/21 23:59 67 06/15/21 23:40 67 20 93 06/15/21 23:00 37.0 C 68 31 H 85/50 L 92 06/15/21 22:00 36.8 C 70 30 H 84/51 L 92 06/15/21 21:00 36.9 C 70 31 H 88/53 L 93 Critical Care Results & Data Vital Signs (Past 12 Hours) Vital Signs Temp Pulse Resp BP Pulse Ox 06/16/21 07:35 72 24 94 06/16/21 06:00 36.7 C 70 27 H 118/66 93 06/16/21 05:00 36.4 C L 75 26 H 115/61 93 06/16/21 04:00 36.6 C 73 28 H 112/62 90 06/16/21 03:00 36.6 C 69 20 112/62 93 06/16/21 02:02 74 22 91 06/16/21 02:00 35.9 C L 79 18 97/55 L 89 L 06/16/21 01:00 36.8 C 68 29 H 88/53 L 91 06/16/21 00:00 36.9 C 67 27 H 93/57 L 92 06/15/21 23:59 67 06/15/21 23:40 67 20 93 06/15/21 23:00 37.0 C 68 31 H 85/50 L 92 06/15/21 22:00 36.8 C 70 30 H 84/51 L 92 06/15/21 21:00 36.9 C 70 31 H 88/53 L 93 Lab & Micro Results (Past 24 Hours) No Data to Display Na 145 mmol/L (136-145) 06/16/21 K mmol/L (3.5-5.1) 06/16/21 Cl 115 mmol/L (98-107) H 06/16/21 CO2 27 mmol/L (21-32) 06/16/21 Anion Gap 3.0 (3-11) 06/16/21 BUN 44 mg/dl (7-18) H 06/16/21 Creatinine 0.63 mg/dl (0.6-1.2) 06/16/21 Estimated GFR ( Amer) 116.2 ml/min 06/16/21 Estimated GFR (Non-Af Amer) 100.3 ml/min 06/16/21 BUN/Creatinine Ratio 70.0 (10-20) H 06/16/21 Glu 114 mg/dl (70-99) H 06/16/21 Ca 6.9 mg/dl (8.5-10.1) L 06/16/21 Phosphorus Level 2.3 mg/dl (2.5-4.9) L 06/16/21 Total Bilirubin 0.6 mg/dl (0.2-1) 06/16/21 AST U/L (15-37) 06/16/21 ALT U/L (12-78) 06/16/21 Alkaline Phosphatase 167 U/L (45-117) H 06/16/21 TP 4.9 gm/dl (6.4-8.2) L 06/16/21 Albumin 1.7 gm/dl (3.4-5.0) L 06/16/21 Globulin 3.2 gm/dl (2.5-4.0) 06/16/21 Albumin/Globulin Ratio 0.5 (0.9-2) L 06/16/21 Mg mg/dl (1.8-2.4) 06/16/21 05:00 06/16/21 Calcium Level 6.9 mg/dl (8.5-10.1) L 06/16/21 05:00 06/16/21 Navdeep Test NA 06/15/21 13:35 06/15/21 Microbiology 06/15/21 04:33 Aerobic Blood Culture - Preliminary Blood No growth in Aerobic bottle after 24 hours. 06/15/21 04:45 Aerobic Blood Culture - Preliminary Blood No growth in Aerobic bottle after 24 hours. Diagnostic Findings (Past 24 Hours) Chest X-Ray 06/15/21 11:07 XR chest 1V portable HISTORY: intubation COMPARISON: Chest 06/14/2021. FINDINGS: Endotracheal tube terminates 4.1 cm from the vaughn. Nasogastric tube terminates below the diaphragm. The tip is not included on this study. Left- sided pacemaker. No pneumothorax. Small left pleural effusion and left basilar densities persist. There is improved aeration within the lungs. The heart remains borderline enlarged. IMPRESSION: 1. Satisfactory support line placement. 2. Left basilar airspace opacity/effusion persists. 3. Overall, improved aeration within the lungs compared to the prior study. ACT 112: Negative or not required by law. Electronically signed by: Robert Godoy M.D. 06/15/2021 11:42 AM I & O Totals 24 Hours 06/15/21 06/16/21 06/17/21 06:59 06:59 06:59 Intake Total 1325.498 / 0105.982 2951.888 / 2397.888 33.33 / 33.33 Output Total 1337 / 1337 1576 / 1576 Balance -11.502 / -11.502 821.888 / 821.888 33.33 / 33.33 Cumulative 06/11/21 23:19 thru 06/16/21 07:03 Intake Total 7315.198 Output Total 9022 Balance -1706.802 RT Ventilator Mngmt (Last Documented) Ventilator Ordered Settings Ventilator Support Mode Assist Control 06/16/21 07:35 Respiratory Rate 24 06/16/21 07:35 Ventilator Tidal Volume 350 06/16/21 07:35 Setting Minute Ventilation 8.3 06/16/21 07:35 Positive End Expiratory 5 06/16/21 07:35 Pressure Fraction of Inspired Oxygen 40 06/16/21 07:35 Machine Comment Set inspiratory time=0.65 seconds 06/16/21 05:00 Ventilator - PT Measurements Respiratory Rate 24 Exhaled Tidal Volume 364 Minute Ventilation 8.3 Peak Inspiratory Airway 25 Pressure Plateau Pressure 18 Respiratory Cycle Inspiratory: 1:3.3 Expiratory Ratio Inspiratory Phase Time 0.65 End-Tidal CO2 22 Static Lung Compliance 28.00 Dynamic Lung Compliance 18.20 Normal Static Lung Compliance 45.00 Patient Measurements Comment tried PS 14 and peep [address] Collins but patient only getting VTe of 250ml and RR in the 40's( increased WOB). Patient placed back on AC 18, 350ml and peep 5 Coding Level of Care Code Critical Care 1st 30-74 mins Diagnoses Non-ST elevation MA (NSTEMI) I21.4 CHF (congestive heart failure) I50.9 Heart failure chronicity: acute Heart failure type: unspecified GI bleed K92.2 Acidemia E87.2 Respiratory failure with hypoxia and hypercapnia J96.21; J96.22 Chronicity: acute on chronic Pacemaker Z95.0 Anemia D64.89 Anemia type: other cause Other causes of anemia: other cause, not classified Syncope R55 Syncope type: unspecified H/O diastolic dysfunction Z86.79 PAD (peripheral artery disease) I73.9 Presence of stent in LAD coronary artery Z95.5 Cellulitis L03.90 Prinzmetal angina I20.1 Postoperative deep vein thrombosis T81.89XA; I82.409 Steinert myotonic dystrophy syndrome G71.11 Time Spent (min) 45 (1) CHF (congestive heart failure) Heart failure chronicity: acute Heart failure type: unspecified Qualified Code(s): I50.9 - Heart failure, unspecified (2) Respiratory failure with hypoxia and hypercapnia Chronicity: acute on chronic Qualified Code(s): J96.21 - Acute and chronic respiratory failure with hypoxia; J96.22 - Acute and chronic respiratory failure with hypercapnia (3) Anemia Anemia type: other cause Other causes of anemia: other cause, not classified Qualified Code(s): D64.89 - Other specified anemias (4) Syncope Syncope type: unspecified Qualified Code(s): R55 - Syncope and collapse
[2021-06-16] MEDS: THIAMINE HCL 100 MG in SYRINGE 9 ML IV SCH (08:21)
[2021-06-16] MEDS ORDERED: VECURONIUM BROMIDE 10 MG VIAL IV STA (08:22)
[2021-06-16] MEDS: POTASSIUM CHLORIDE 20 MEQ/15 ML UDC PO SCH (08:23)
[2021-06-16] MEDS: LACTATED RINGER'S 1,000 ML IV SCH (08:26)
[2021-06-16 08:43] LABS: Potassium 3.9 mmol/L (3.5-5.1)
[2021-06-16 09:01] LABS: Magnesium 2.4 mg/dl (1.8-2.4)
[2021-06-16] MEDS: propofoL 1,000 MG/100 ML VIAL IV SCH ×2 (09:42→20:41)
[2021-06-16] MEDS: fentaNYL citrate 100 MCG/2 ML VIAL IV STA ×2 (09:47→10:00)
--- NOTE | 2021-06-16 10:49 | Cardiology Progress Note ---
Date of Service June 16, 2021 Assessment & Plan (1) Respiratory failure with hypoxia and hypercapnia: (2) Non-ST elevation IN (NSTEMI): (3) ACS (acute coronary syndrome): (4) GI bleed: Plan: Patient is an extremely complex 55-year-old female with recent clinical course notable for presentation with syncope and profound anemia. She presents this admission in acute respiratory distress and congestive heart failure secondary to myocardial ischemia. Recent history of GI bleed Patient underwent emergent cardiac catheterization study demonstrating right coronary occlusion and high-grade proximal LAD stenosis successfully intervened on with drug-eluting stent. LV systolic function severely impaired on follow-up echocardiogram. Patient's history is notable for vasospastic angina, chronic coronary artery disease and significant peripheral vascular disease in addition to above issues The patient required reintubation and now has received a percutaneous tracheostomy and is currently undergoing bronchoscopy to remove mucous plugs. No additional recommendations from cardiology at this time. Admission and Anticipated Discharge Date Admission Date: June 12, 2021 Subjective The patient required reintubation overnight and now has a percutaneous trach and is undergoing bronchoscopy to remove mucous plugs. Review of Systems Review of Systems: Unobtainable Physical Exam Physical Exam: General: no acute distress and stated age Head: normocephalic, no masses, lesions, tenderness or abnormalities Eyes: conjunctiva are pink and non-injected, sclera clear Neck: Tracheostomy Chest: normal shape and normal respiratory effort Lungs: clear to auscultation and percussion Cardiac Exam: - regular rate & rhythm, no murmurs gallops or rubs - normal S1, normal S2 Pulses: 2(+) throughout Abdomen: abdomen soft, non-tender, no abnormal masses and no hepatosplenomegaly Musculoskeletal: no gait disturbance, no joint inflammation, no deforming arthritis Extremities: no edema and no cyanosis Neuro: grossly normal exam Results & Data ([facility]) Vital Signs (Past 12 Hours) Vital Signs Temp Pulse Resp BP Pulse Ox 06/16/21 08:14 70 118/65 06/16/21 07:35 72 24 94 06/16/21 06:00 36.7 C 70 27 H 118/66 93 06/16/21 05:00 36.4 C L 75 26 H 115/61 93 06/16/21 04:00 36.6 C 73 28 H 112/62 90 06/16/21 03:00 36.6 C 69 20 112/62 93 06/16/21 02:02 74 22 91 06/16/21 02:00 35.9 C L 79 18 97/55 L 89 L 06/16/21 01:00 36.8 C 68 29 H 88/53 L 91 06/16/21 00:00 36.9 C 67 27 H 93/57 L 92 06/15/21 23:59 67 06/15/21 23:40 67 20 93 06/15/21 23:00 37.0 C 68 31 H 85/50 L 92 Laboratory Results Laboratory Results - last 24 hr 06/15/21 06/15/21 06/15/21 04:33 13:35 13:44 Sample Site R Brachial POC pH 7.51 H* POC pCO2 33 L POC pO2 66 L POC HCO3 26 H POC Total CO2 27 POC Base Excess 3.0 H POC ABG O2 Sat 95.0 Navdeep Test NA O2 Delivery Device Ventilator POC O2 Rate 20 Minute Ventilation 9.8 POC FiO2 50 Tidal Volume 350 PEEP 5 Sodium Potassium Chloride Carbon Dioxide Anion Gap BUN Creatinine Est Cr Clr Drug Dosing Est GFR ( Amer) Est GFR (Non-Af Amer) BUN/Creatinine Ratio Glucose POC Glucose 119 H Calcium Phosphorus Magnesium Total Bilirubin AST ALT Alkaline Phosphatase Total Protein Albumin Globulin Albumin/Globulin Ratio Prealbumin 10.8 L Specimen Hemolysis 06/15/21 06/15/21 06/16/21 18:08 19:59 00:01 Sample Site POC pH POC pCO2 POC pO2 POC HCO3 POC Total CO2 POC Base Excess POC ABG O2 Sat Navdeep Test O2 Delivery Device POC O2 Rate Minute Ventilation POC FiO2 Tidal Volume PEEP Sodium Potassium Chloride Carbon Dioxide Anion Gap BUN Creatinine Est Cr Clr Drug Dosing Est GFR ( Amer) Est GFR (Non-Af Amer) BUN/Creatinine Ratio Glucose POC Glucose 155 H 124 H 117 H Calcium Phosphorus Magnesium Total Bilirubin AST ALT Alkaline Phosphatase Total Protein Albumin Globulin Albumin/Globulin Ratio Prealbumin Specimen Hemolysis 06/16/21 06/16/21 06/16/21 05:00 06:03 06:55 Sample Site POC pH POC pCO2 POC pO2 POC HCO3 POC Total CO2 POC Base Excess POC ABG O2 Sat Navdeep Test O2 Delivery Device POC O2 Rate Minute Ventilation POC FiO2 Tidal Volume PEEP Sodium 145 Potassium Cancelled Chloride 115 H Carbon Dioxide 27 Anion Gap 3.0 BUN 44 H Creatinine 0.63 Est Cr Clr Drug Dosing 72.9 Est GFR ( Amer) 116.2 Est GFR (Non-Af Amer) 100.3 BUN/Creatinine Ratio 70.0 H Glucose 114 H POC Glucose 116 H Calcium 6.9 L D Phosphorus 2.3 L D Magnesium Cancelled Total Bilirubin 0.6 AST Cancelled ALT Cancelled Alkaline Phosphatase 167 H Total Protein 4.9 L Albumin 1.7 L Globulin 3.2 Albumin/Globulin Ratio 0.5 L Prealbumin Specimen Hemolysis 06/16/21 07:49 Sample Site POC pH POC pCO2 POC pO2 POC HCO3 POC Total CO2 POC Base Excess POC ABG O2 Sat Navdeep Test O2 Delivery Device POC O2 Rate Minute Ventilation POC FiO2 Tidal Volume PEEP Sodium Potassium 3.9 D Chloride Carbon Dioxide Anion Gap BUN Creatinine Est Cr Clr Drug Dosing Est GFR ( Amer) Est GFR (Non-Af Amer) BUN/Creatinine Ratio Glucose POC Glucose Calcium Phosphorus Magnesium 2.4 Total Bilirubin AST 1622 H ALT 3075 H Alkaline Phosphatase Total Protein Albumin Globulin Albumin/Globulin Ratio Prealbumin Specimen Hemolysis Medications Administered Current Inpatient Medications Albuterol (Albut/Ipratrop 3mg/0.5mg Neb 3 Ml Vial) 3 ml NEB Q4R PRN PRN Reason: Wheezing Stop: 07/13/21 10:59 Last Admin: 06/15/21 03:01 Dose: 3 ml Documented by: Aspirin (Aspirin 81 Mg Chew) 81 mg NG DAILY DENISSE Stop: 07/13/21 16:14 Last Admin: 06/16/21 08:17 Dose: 81 mg Documented by: Atorvastatin Calcium (Atorvastatin 40 Mg Tab) 80 mg PO HS DENISSE Stop: 07/12/21 20:59 Last Admin: 06/15/21 20:04 Dose: 80 mg Documented by: Budesonide (Budesonide 0.5 Mg/2 Ml Vial (Pulmicort)) 0.5 mg NEB BIDR DENISSE Stop: 07/13/21 18:59 Last Admin: 06/16/21 07:31 Dose: 0.5 mg Documented by: Clopidogrel Bisulfate (Clopidogrel Bisulfate 75 Mg Tab) 75 mg PO QAM DENISSE Stop: 07/13/21 16:14 Last Admin: 06/16/21 08:17 Dose: 75 mg Documented by: Epinephrine HCl (Epinephrine Inj 1 Mg/Ml Amp) 0.3 mg IM UD PRN PRN Reason: Allergic Reaction Stop: 07/12/21 05:16 Ferrous Sulfate (Ferrous Sulfate 325 Mg/7.4 Ml Udp) 325 mg PO BIDM [facility] Stop: 07/15/21 16:59 Last Admin: 06/16/21 08:14 Dose: 325 mg Documented by: Fluticasone Propionate (Fluticasone Propionate Na Spr 16 Gm Btl) 2 sprays NA DAILY [facility] Stop: 07/12/21 08:59 Last Admin: 06/16/21 08:17 Dose: 2 sprays Documented by: Formoterol Fumarate (Formoterol 20 Mcg/2 Ml Vial) 20 mcg NEB BIDR [facility] Stop: 07/13/21 10:29 Last Admin: 06/16/21 07:31 Dose: 20 mcg Documented by: Gabapentin (Gabapentin 250 Mg/5 Ml 470 Ml Btl) 900 mg PO TID [facility] Stop: 07/15/21 13:59 Last Admin: 06/16/21 08:18 Dose: 900 mg Documented by: Phenytoin 100 mg/ Syringe 2 mls @ 1 mls/min IV TID [facility] Stop: 07/12/21 08:59 Last Admin: 06/16/21 08:20 Dose: 1 mls/min Documented by: Furosemide 40 mg/ Syringe 4 mls @ 4 mls/min IV BID17 [facility] Stop: 07/12/21 08:59 Last Admin: 06/16/21 08:18 Dose: 4 mls/min Documented by: Levetiracetam 1,000 mg/ Sodium (Chloride) 110 mls @ 440 mls/hr IV BID [facility] Stop: 07/13/21 08:59 Last Admin: 06/16/21 08:18 Dose: 440 mls/hr Documented by: Pantoprazole Sodium 40 mg/ (Syringe) 10 mls @ 5 mls/min IV BID@0900,2100 [facility] Stop: 07/14/21 20:59 Last Admin: 06/16/21 08:19 Dose: 5 mls/min Documented by: Ampicillin Sodium/Sulbactam Sodium 1,500 mg/ Sodium Chloride 104 mls @ 200 mls/hr IV Q6H [facility]; Protocol Stop: 06/21/21 19:59 Last Admin: 06/16/21 08:13 Dose: 200 mls/hr Documented by: Acetaminophen (Ofirmev) 1,000 mg in 100 mls @ 400 mls/hr IV Q8H PRN PRN Reason: Fever Stop: 06/17/21 22:07 Last Infusion: 06/15/21 02:40 Dose: Infused Documented by: Thiamine HCl 100 mg/ Syringe 10 mls @ 2 mls/min IV QAM [facility] Stop: 07/15/21 13:44 Last Admin: 06/16/21 08:21 Dose: 2 mls/min Documented by: Propofol (Diprivan) 1,000 mg in 100 mls @ 7.956 mls/hr IV .[id number] [facility]; Protocol Stop: 06/18/21 19:14 Last Admin: 06/16/21 09:42 Dose: 30 mcg/kg/min, 8 mls/hr Documented by: Lactated Ringer's (Lr) 1,000 mls @ 70 mls/hr IV .[id number] [facility] Stop: 07/15/21 23:29 Last Admin: 06/16/21 08:26 Dose: 70 mls/hr Documented by: Insulin Aspart (Insulin Aspart 100 Units/Ml 3 Ml Pen) 0 units SC Q6 [facility] Stop: 07/13/21 11:59 Last Admin: 06/16/21 06:08 Dose: Not Given Documented by: Isosorbide Dinitrate (Isosorbide Dinitrate 5 Mg Tab) 5 mg PO Q3H PRN PRN Reason: chest pain Stop: 07/12/21 04:37 Isosorbide Mononitrate (Isosorbide [place] Extended Rel 60 Mg Tabcr) 120 mg PO BID [facility] Stop: 07/12/21 08:59 Last Admin: 06/12/21 08:32 Dose: Not Given Documented by: Lisinopril (Lisinopril 2.5 Mg Tab) 2.5 mg PO DAILY [facility] Stop: 07/14/21 08:59 Last Admin: 06/16/21 08:19 Dose: 2.5 mg Documented by: Loratadine (Loratadine 10 Mg Tab) 10 mg PO DAILY [facility] Stop: 07/12/21 08:59 Last Admin: 06/16/21 08:16 Dose: 10 mg Documented by: Metoprolol Tartrate (Metoprolol Tartrate 1 Mg/Ml Vial) 2.5 mg IV Q4 [facility] Stop: 07/14/21 11:59 Last Admin: 06/16/21 08:14 Dose: 2.5 mg Documented by: Miscellaneous (Icu Electrolyte Replacement Protocol) 1 ea N/A BID@,18 [facility]; Protocol Stop: 06/19/21 17:59 Last Admin: 06/15/21 18:05 Dose: Not Given Documented by: Nitroglycerin (Nitroglycerin 2% Ointment 30gm Tube) 0.5 inch EXT Q6H [facility] Stop: 07/14/21 11:14 Last Admin: 06/16/21 05:16 Dose: 0.5 inch Documented by: Potassium Chloride (Potassium Chloride 20 Meq/15 Ml Udc) 40 meq PO DAILY [facility] Stop: 07/16/21 08:59 Last Admin: 06/16/21 08:23 Dose: 40 meq Documented by: Prazosin HCl (Prazosin Hcl 1 Mg Cap) 1 mg PO BID [facility] Stop: 07/12/21 08:59 Last Admin: 06/16/21 08:20 Dose: 1 mg Documented by: Primidone (Primidone 50 Mg Tab) 50 mg PO TID [facility] Stop: 07/12/21 08:59 Last Admin: 06/16/21 08:20 Dose: 50 mg Documented by: Propofol (Propofol Bolus From Bag) 20 mg IV Q5M PRN PRN Reason: Sedation Stop: 06/18/21 19:01 Sodium Chloride (Sodium Chloride 0.9% 10ml Flush) 20 ml IV TID [facility] Stop: 07/12/21 08:59 Last Admin: 06/16/21 08:16 Dose: 20 ml Documented by: Sterile Water (Tube Feeding Water Flush) 60 ml GT Q4H [facility] Stop: 07/15/21 13:29 Last Admin: 06/16/21 09:47 Dose: Not Given Documented by: (1) Respiratory failure with hypoxia and hypercapnia Chronicity: acute on chronic Qualified Code(s): J96.21 - Acute and chronic respiratory failure with hypoxia; J96.22 - Acute and chronic respiratory failure with hypercapnia
--- NOTE | 2021-06-16 11:03 | Procedure Note ---
Procedure Note Date of Service June 16, 2021 Note Procedure: Bedside placement of 6 oh nonfenestrated tracheostomy tube via percutaneous dilatation of technique. Bobbin Drier: Dr. Javon Collins Closing Coordinator: XU Rodriguez Anesthesia propofol infusion, 50 mcg fentanyl, 5 mg vecuronium, 10 cc 1% lidocaine with epinephrine locally. Estimated blood loss: Less than 5 mL Indication: Recurrent respiratory failure requiring reintubation on 3 separate occasions. Consent: Risks and benefits of been explained to the patient's . Consent was verified. Timeout was performed prior to commencement of the procedure. Procedure: Patient was placed in the supine position. Sedation was administered and a timeout was performed. Neck roll was placed under the shoulders to allow for extension of the neck. Patient was placed on 100% FiO2 on the ventilator. After appropriate anesthesia was obtained, the neck was cleaned and draped in sterile fashion using chlorhexidine. Landmarks were easily identified including the thyroid and cricoid cartilages. An area approximately 1 cm inferior to the cricoid cartilage was infiltrated with 10 cc of 1% lidocaine without epinephrine. Using a 10 blade scalpel, a 1.5 cm longitudinal incision was made approximately 1 cm below the cricoid cartilage. Using finger dissection and blunt dissection with the curved hemostats, the subcutaneous tissues were dissected down until I was able to palpate the rings of the trachea with my finger. At that point time XU rodriguez was performing bronchoscopy. See separate note. The cuff was deflated and the bronchoscope left at the tip of the endotracheal tube. It was retracted to just below the glottis. I was able to observe external ballottement via the bronchoscope and transillumination of the anterior neck. An 18-gauge needle with over the needle catheter was advanced through the second intercartilaginous space. The needle was withdrawn and the catheter left in place. It was visualized to be in good position bronchoscopically. A wire was passed into the distal airways and the catheter was removed. The wire was visualized bronchoscopically to be distending into the lower airways. The tract was dilated with the stiff dilator over the needle without difficulty. The Rhino dilator with the guiding catheter was then advanced over the wire and the tract dilated without difficulty. The Rhino dilator was removed leaving the guiding catheter and wire in place. A previously tested 6 oh tracheostomy tube had been loaded on a loading catheter and it was advanced over the wire and guiding catheter into the airway. The wire and guiding catheter were removed. XU rodriguez then withdrew the bronchoscope and advanced it through the newly placed tracheostomy tube and verified to be within the airway. Cuff was inflated, the internal cannula was loaded and the patient was attached to the ventilator with return of appropriate tidal volumes. Using 2-0 Vicryl, stay sutures were placed at the 6 o'clock position and at the 2 and 10:00 positions. Trach ties were attached. Hemostasis was confirmed. Once the tracheostomy was secured, the bronchoscope was advanced through the newly placed tracheostomy. The patient had thick tenuous secretions throughout all airways which required serial lavage and frequent removal of the bronchoscope due to inability to suction them through the working channel. Eventually we were able to clear the airways. No airway lesions were identified. Coding CPT Codes ENT - ENT: 89026 Incision of windpipe ([id number]) [facility] [place] Procedure Codes (Charges) ENT ENT: 69421 Incision of windpipe
--- NOTE | 2021-06-16 11:18 | Procedure Note ---
Procedure Note Date of Service June 16, 2021 Note Procedure Name: Fiberoptic bronchoscopy for placement of percutaneous tracheostomy tube Procedure time out: side/site verified, patient ID confirmed, correct procedure Consent obtained: written (The risks, benefits, indications, potential complications, and alternatives were explained to the family and informed consent obtained by Dr. Collins.) Time of procedure: 10:12 Performed by: physician architectural project captain: Jhonny Rodriguez PA-C Indications: diagnostic, therapeutic Contraindications: None Indication: Patient requiring percutaneous placement of tracheostomy tube. Fiberoptic bronchoscopy required for clearance of secretions prior to the procedure, visualization of cannulization, and verification of airways status post procedure. The bronchoscope was introduced into the endotracheal tube. A large mucous plug was removed from the left main bronchus. There was also evidence of mucus and secretions at the vaughn. These were also evacuated and sent to lab for evaluation and analysis. There was no evidence of bleeding or significant bronchial trauma. There were minimal secretions in the subsegmental branches of the right lower lobe. These were evacuated. The right and main left bronchus as well as the segmental branches of the right middle and right lower lobe and left upper, lingula and left lower lobes were again examined with no blood but there was a significant amount of residual secretions. There was no evidence of bronchial trauma on the final examination with the fiberoptic scope. The cuff of the endotracheal tube was deflated and the endotracheal tube was withdrawn to the level of the vocal cords using video bronchoscopy. The cuff was lightly reinflated and the fiberoptic bronchoscope was advanced to the tip of the endotracheal tube. The needle entry site in the trachea midline was visualized as was the placement of the guidewire into the distal trachea. Photographs were taken to confirm placement of the guidewire. After placement of the tracheostomy tube, the bronchoscope was withdrawn from the endotracheal tube and introduced through the tracheostomy tube to confirm correct placement. The bronchoscope was then withdrawn to allow suturing of the tracheostomy tube into position. After confirmation of position and securement of the tracheostomy tube the endotracheal tube and orogastric tube were removed. The patient experienced no desaturation or complication during the procedure. Dr. Collins was present for the entire procedure as he was performing the surgical portion of the percutaneous tracheostomy Complications: none Patient tolerated procedure: well Post-procedure vital signs: reviewed and stable Comments: The patient received sedation and neuromuscular blockade in the form of vecuronium 5 mg and fentanyl 50 mcg for the procedure with airway intact with endotracheal tube. This was ordered, administered, and monitored by me and patient vital signs were monitored throughout the entire procedure. Coding CPT Codes Sedation/Anesthesia - Sedation/Anesthesia: 08279 Mod Sedation by the same physician; Ea [id number] Minutes ([id number]) Pulmonary/Thoracic - Pulmonary and Thoracic: 61496 Bronchoscopy, clear airways ([id number]) [facility] Procedure Codes (Charges) Pulmonary/Thoracic Procedure 1: Pulmonary and Thoracic: 08309 Bronchoscopy, clear airways Sedation/Anesthesia Procedure 1: Sedation/Anesthesia: 83910 Mod Sedation by the same physician; Ea [id number] Minutes Total Sedation Time (minutes): 40
[2021-06-16] MEDS: ALBUT/IPRATROP 3MG/0.5MG NEB 3 ML VIAL NEB PRN (11:22)
--- NOTE | 2021-06-16 12:59 | XRay Report ---
XR chest 1V portable CLINICAL HISTORY: trach, NGT COMPARISON STUDY: Chest radiograph June 15, 2021. FINDINGS: Interval placement of a tracheostomy tube is noted. Tip of nasogastric tube is below the lo wer aspect of this image but at least within the body of the stomach. There is no pneumothorax. Left subclavian pacer/AICD is in place. Small bilateral pleural effusions are again noted with bibasilar o pacities. There is persistent interstitial thickening. IMPRESSION: 1. Interval placement of a tracheostomy. 2. Persistent bibasilar opacities and small bilateral pleural effusions. 3. Mild interstitial thickening. ACT 112: Negative or not required by law. Electronically signed by: Sergio Osman M.D. 06/16/2021 12:58 PM
[2021-06-16] MEDS ORDERED: SODIUM PHOSPHATE 3 MMOL/1 ML INFUSION IV STA (13:30)
[2021-06-16] MEDS: ICU ELECTROLYTE REPLACEMENT PROTOCOL SCH ×2 (13:33→18:24)
[2021-06-16] MEDS ORDERED: SODIUM PHOSPHATE 15 MMOL in SODIUM CHLORIDE 0.9% 250 ML IV ONE (14:00)
[2021-06-16] MEDS ORDERED: Nursing to Pharmacy Communication SCH (14:15)
[2021-06-16] MEDS: PEPTAMEN 1.5 CAL 1,000 ML BAG GT SCH (16:23)
--- NOTE | 2021-06-16 16:35 | Hospitalist Progress Note ---
Date of Service June 16, 2021 Assessment & Plan (1) Non-ST elevation NC (NSTEMI): Plan: ASSESSMENT AND PLAN: This is a 55-year-old female who presents with agitation, chest pain, pain all over and found to be with non-ST elevated myocardial infarction and congestive heart failure. 1. Respiratory Distress: The patient is s/p intubation and mechanical ventilation, possibly secondary to congestive heart failure, received Lasix in ER -- self extubated 06/14 -- reintubated 06/15 -- s/p trach placement 06/16 further management per [employer] service Possible Aspiration Pneumonia -- on Unasyn 2. Non-ST elevated myocardial infarction: Status post cardiac catheterization and stent to the proximal LAD lesion, post-cath care as per cardiology. Ischemic Cardiomyopathy -- s/p Cardiac Cath 06/[address] Hinojosa: 1. Severe multivessel vessel coronary artery disease -90% possibly acute proximal LAD stenosis. Patent mid LAD stent 100% chronic mid RCA occlusion. Distal vessel fills via [id number] collaterals. 2. Elevated intracardiac filling pressure. LVEDP 34 3. Severe obstructive abdominal aortic disease (unable to pass 5 Fr catheter across stenosis). 4. Successful PCI of proximal to mid LAD with single drug-eluting stent (3.0 x 18 mm [place]; postdilated with 3.5 NC, overlaps proximal aspect of prior stent). Echo: 25-30% extensive wall motion abnormalities with the inferior wall being akinetic at the base on ASA, Plavix, Imdur-->changed to Nitropaste, IV Metoprolol, Lisinopril, Lipitor on Lasix 40mg IV BID continue 3. Anemia, possible GI bleed -- Hemoglobin was 5.4 last admission, required 4 units of PRBCs. Currently hemoglobin is 8.7. ER started on Protonix drip today which will continue. -- s/p 1 unit pRBC given -- Hg 10 -- GI not recommending EGD/Colonoscopy due to above given Protonix drip , transition to IV BID 4. Possible urinary tract infection -- blood and urine cultures negative so far 5. Elevated lactic acid and acidosis: Most likely from the acute coronary syndrome and respiratory distress. -- improved 6. The patient is on chronic pain medication. The patient is on high dose of pain medication at home, which will be held. Will place on IV Dilaudid p.r.n. as the patient is currently intubated and sedated and getting propofol. 7. History of coronary artery disease. History of LAD stenting in the past as well as vasospastic angina 8. History of VT arrest due to coronary artery vasospasm versus acquired QT prolongation possible of azithromycin exposure, status post single chamber AICD. 9. History of peripheral vascular disease, superficial femoral artery occlusi on, left subclavian artery stenosis. on aspirin and Plavix. 10. History of myotonic muscular dystrophy. PT, OT when stable. 11. History of pulmonary embolism. Coumadin was discontinued due to GI bleed in 2019. 12. History of left carotid endarterectomy in 2015. 13. History of chronic obstructive pulmonary disease: Continue her home inhalers. 14. History of seizures: On Keppra and phenytoin, which will be changed to IV.Dose adjustment of keppra per Pharmacy for renal function. 15. History of diastolic congestive heart failure: per above 16. History of hypertension: 17. History of deep venous thrombosis prophylaxis: Will place on sequential compression devices for now because of possible gastrointestinal bleed. 18. Underweight -- Nutrition consult Admission and Anticipated Discharge Date Admission Date: June 12, 2021 Subjective ff up for NSTEMI, respiratory failure, etc s/p trach placement off sedation drowsy, opens eyes occasionally not in distress, tachypneic no signs of pain tolerating tube feeding no other issues per dining room busser of Systems Review of Systems: all noted and negative except for above Physical Exam Physical Exam: General- drowsy, not in distress, breathing with no effort or accessory muscle use Eyes- anicteric Neck- no JVD Lungs- (+) mild rales anteriorly Heart- normal rate, regular rhythm; no murmurs Abdomen- normal bowel sounds, nondistended, soft, nontender Extremities- no pretibial edema, no calf tenderness Neuro-drowsy, no new gross focal neurologic deficits Skin- warm & dry Results & Data Results & Data ([facility]) Vital Signs (Past 12 Hours) Vital Signs Temp Pulse Resp BP Pulse Ox 06/16/21 16:15 71 99/50 L 06/16/21 15:00 36.7 C 72 25 H 06/16/21 14:58 73 22 100 06/16/21 14:00 36.5 C 74 21 100 06/16/21 13:34 75 126/63 06/16/21 13:00 36.5 C 73 25 H 97 06/16/21 12:00 36.6 C 76 25 H 90 06/16/21 11:00 36.7 C 73 18 101/58 L 100 06/16/21 10:00 36.5 C 73 29 H 100 06/16/21 09:00 36.7 C 77 29 H 94 06/16/21 08:14 70 118/65 06/16/21 08:00 36.9 C 74 28 H 118/65 94 06/16/21 07:35 72 24 94 06/16/21 07:00 36.9 C 70 20 93 06/16/21 06:00 36.7 C 70 27 H 118/66 93 06/16/21 05:00 36.4 C L 75 26 H 115/61 93 all noted and reviewed including below
[2021-06-16] MEDS: ATORVASTATIN 40 MG TAB PO SCH (19:54)
[2021-06-16] MEDS: ACETAMINOPHEN 1,000 MG/100 ML VIAL IV PRN (20:58)
[2021-06-16] MEDS: fentaNYL citrate 100 MCG/2 ML VIAL IV PRN (22:54)
[2021-06-17] MEDS: NITROGLYCERIN 2% OINTMENT 30GM TUBE EXT SCH ×5 (00:15→23:17)
[2021-06-17] MEDS: METOPROLOL TARTRATE 1 MG/ML VIAL IV SCH ×5 (00:58→15:18)
[2021-06-17] MEDS: TUBE FEEDING WATER FLUSH GT SCH ×6 (00:59→20:43)
[2021-06-17] MEDS: INSULIN ASPART 100 UNITS/ML 3 ML PEN SC SCH ×5 (01:10→23:42)
[2021-06-17] MEDS ORDERED: Heparin IV Adult Wt-Based Low-Dose *NO* Bolus Protocol IV ONE (01:19)
--- NOTE | 2021-06-17 01:22 | Communication Note ---
Date of Service: June 17, 2021 0100: Received an update from both nursing and Zola tech regarding patient's RUE US result findings consistent with extensive clot burden. It appears as though the patient had previously been on Coumadin in the outpatient setting with a h/o DVT. This had been stopped secondary to GI bleeding. She had not been on anticoagulation during this hospitalization 2/2 melanotic stools. She also had a recent hospitalization for GI bleeding which required transfusion. She had not followed up in the outpatient setting for her endoscopy procedures. She completed a 72 hour course of IV Protonix gtt and is currently receiving IV Protonix BID per GI recommendations. Unfortunately, given the extent of the DVT with potential catastrophic consequences of migration, patient will likely require anticoagulation. As the patient is Lucid and able to contribute to her care decisions at this time, I did assess the patient at bedside to have conversation about US findings to facilitate shared decision making. Patient confirms that she had been on Coumadin up until a few weeks ago when she was admitted for GIB. She confirms that she has been on heparin in the past as well. I did discuss concerns of DVT findings and possible sequela if the clot were to migrate. Additionally, I did discuss concerns as the patient has had GI bleeding over the past month or so which has actually resulted in the need for transfusions. She also has had to complete PPI gtt during current hospitalization for melanotic stools. Unfortunately, the patient did not follow up for outpatient scope procedures so we have no way of knowing underlying GI pathology. That being said, I am concerned that the risk of clot migration necessitates the initiation of anticoagulation. I did have extensive discussion with patient regarding risks of not treating the clot as well as the risks of bleeding with initiation of anticoagulation. She is comfortable with proceeding with anticoagulation at this time. After careful consideration of the patient's recent complex medical history, I do feel that the best course of action would be to initiate a reversible anticoagulant that can be closely monitored. I do not feel that the patient would be a great candidate for DOAC therapy in light of her recent GI bleeding. Taking this all into consideration, I did place orders for low dose Heparin gtt WITHOUT bolus. Orders placed for PTT and repeat Type and Screen to be obtained prior to Heparin administration. I did discuss all of this with the patient prior to initiation and she provided her consent. Nursing staff provided update. I have personally spent 38 minutes of critical care time in the direct management of this patient. This is a life/limb threatening event. This includes time spent evaluating patient, direct bedside care, chart review, placing orders, interpretation of diagnostic studies, discussion with consultants, patient, and family members, as well as other required patient management activities. This time is exclusive of all separately billable procedures, and teaching time and separate from and in addition to any other critical care service time. Unfortunately, there was a discrepancy in the initial US tech read and the formal read by [facility] radiologist. Of note, DVT was noted in the initial read. Tech did reach out to [facility] radiologist for revaluation. Addendum suggestive of more subacute findings which had previously been communicated to tech during conversation. Given these findings and patient's high risk for bleeding, I did elect to hold off on full anticoagulation pending repeat imaging evaluation by formal radiologist here at our institution. Heprin will be held currently. We will start the heparin if any changes occur in the interim. Otherwise, will continue current treatment course. Coding Level of Care Code Critical Care 1st 30-74 mins Time Spent (min) 38
[2021-06-17 02:08] LABS: Partial Thromboplastin Ratio 1.2; Partial Thromboplastin Time 31.9 Seconds (21.0-31.0)
[2021-06-17] MEDS: AMPICILLIN/SULBACTAM SOD 1,500 MG in 0.9 % SODIUM CHLORIDE 100 ML IV SCH ×4 (02:49→20:42)
[2021-06-17] MEDS: fentaNYL citrate 100 MCG/2 ML VIAL IV PRN (04:43)
[2021-06-17] MEDS: LACTATED RINGER'S 1,000 ML IV SCH (04:47)
[2021-06-17 05:12] LABS: Eosinophils # (auto) 0.02 K/uL (0-0.5); Eosinophils % (auto) 0.2 %; Hematocrit (blood only) 30.4 % (37-47); Hemoglobin 9.1 g/dL (12.0-16.0); Immature Granulocytes # (auto) 0.04 K/uL (0.00-0.02); Immature Granulocytes % (auto) 0.4 %; Lymphocytes # (auto) 0.75 K/uL (1.2-3.4); Lymphocytes % (auto) 7.5 %; Mean Corpuscular Hemoglobin 27.1 pg (25-34); Mean Corpuscular Hgb Conc 29.9 g/dL (32-36); Mean Corpuscular Volume 90.5 fL (80-100); Mean Platelet Volume 10.8 fL (7.4-10.4); Monocytes # (auto) 0.91 K/uL (0.11-0.59); Monocytes % (auto) 9.1 %; Neutrophils # (auto) 8.26 K/uL (1.4-6.5); Neutrophils % (auto) 82.8 %; Platelet Count 104 K/uL (130-400); RDW Coefficient of Variation 20.6 % (11.5-14.5); RDW Standard Deviation 67.3 fL (36.4-46.3); Red Blood Count 3.36 M/uL (4.2-5.4); White Blood Count 9.98 K/uL (4.8-10.8)
[2021-06-17 05:26] LABS: INR 1.4 (0.9-1.1); Prothrombin Time 14.1 Seconds (9.0-12.0)
--- NOTE | 2021-06-17 05:27 | Critical Care Progress Note ---
Date of Service June 17, 2021 Assessment & Plan (1) Non-ST elevation [place] (NSTEMI): Plan: Reason Critically Ill: 55-year-old female presents to the ICU following event of acute coronary syndrome resulting in acute HFrEF with hypoxic hypercapnic respiratory failure requiring emergent intubation. Now post cardiac catheter she received a single drug-eluting stent to the proximal LAD for 90% stenosis and is also being monitored for a GIB and acute hypoxic/hypercapnic respiratory failure, likely secondary to component of acute CHF and severe underlying COPD. She is hemodynamically stable. 24 hour events: Looking much better today. Relaxed in bed, aware of her s urroundings, follows commands. Trach in place. RUE DVT confirmed on US - started on heparin gtt without bolus. PT, OT, OOB today as tolerated. Slow return to activity. Neuro - Sedation: None. Seizure disordercontinue Keppra, phenytoin, primidone Polyneuropathycontinue Neurontin Patient is extensively deconditioned and will require aggressive PT, OT, and likely LTAC when appropriate. Appreciate case management aid with this. Cardiac - appreciate cardiology assistance Acute coronary syndromepatient presented with NSTEMI, acute HFrEF, respiratory distress -Status post successful PCI with single AKIKO to the proximal LAD for 90% stenosis -Continue ASA, plavix, atorvastatin 80, ACEI -TTE as below Acute HFrEF-in setting of NSTEMI, as above -TTE demonstrating severe LV dysfunction with LVEF 25-30%, akinesis of inferior wall and inferior septum, hypokinesis of apex/posterinferior mixon -Continue Lasix 40 IV b.i.d. -Continue holding home diltiazem in setting of acute HFrEF - appreciate cardiology input -Continue metoprolol -- transition to PO -CAD/ACS care, as above Prinzmetal angina - Hold diltiazem Respiratory - Acute hypoxic/hypercapnic respiratory failuresuspect large component of underlying COPD, compounded by acute CHF in setting of NSTEMI, and likely aspiration PNA -Unfortunately, 3 significant episodes of respiratory deterioration requiring intubation and mechanical ventilation Status post tracheostomy and bronchoscopy on 06/16 -Trial trach collar today, ween vent settings -Continue budesonide, formoterol -Continue Lasix -- UOP adequate -Continue CFTX for presumed aspiration PNA -Chest percussion therapy to aid with mucociliary clearance GI - GI bleedpatient with positive occult stool in the ED and multiple melanotic stools during early admission -Patient at higher risk for PUD, mesenteric ischemia given PAD and ACS on presentation -Recently admitted for anemia requiring 4U pRBC in May - did not return for outpatient endoscopy -Anemia stable on repeat labs -Protonix b.i.d. -Continue DAPT in setting of ACS -GI previously consulted - given ACS, previously recommended conservative management. We will reconsult given re-initiation of heparin and possible need for endoscopy. Appreciate insight/recommendations. Transaminitis - Significantly elevated from admission. AST 1078 / ALT 2367 today (from 1622/3075 yesterday). Downtrending. Likely component from ACS, but also possibly statin-induced (atorvastatin 80mg/day). INR 1.4 / Plt 102 / Na 149 / Alb 2.0. Will trend for now - if worsening, consider changing statin to more hydrophilic agent. Diet - NGT with feeds ongoing. Continue thiamine for potential refeeding syndrome. Nutrition consulted - appreciate assistance. Stop IVF. RENAL/LYTES - BUN and creatinine stable with ongoing diuresis. Replete potassium. - Foleystrict I's and O's -- adequate ENDO - No h/o DM or thyroid disease. Continue ICU hyperglycemic protocol HEME - Anemiacontributory to acute blood loss from GI bleed -Anemia, hemodynamics stable (Hgb ~9-10) -s/p 1U pRBC on 06/12 -Monitor in setting of re-initation of heparin gtt -Transfuse Hgb < 8 RUE DVT - US demonstrating "Extensive and age indeterminant nonocclusive deep venous thrombosis in the right upper extremity ... [as well as] occlusive superficial venous thrombus seen within the basilic vein." Given high risk for translocation, will initiate heparin regular dosing NO bolus x 24 hours, can transition to Warfarin thereafter. Patient not a candidate for NOACs given her antiepileptics. ID - Chest x-ray in clinical course concerning for aspiration pneumonia. Continue Unasyn, today being day 4. Gram stain from bronchoscopy negative. Await culture. 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 De Leon was resident physician during care of patient. I separately evaluated patient for jha portions of the history and the exam. I was present during the critical portion of medical decision making, and I discussed the case with the resident. I generally agree with the findings and plan. Continue trach collar trials we will continue IV antibiotics as patient is still febrile and requiring supplemental respiratory support at night, will ultimately require 10 days of therapy. Will require follow-up with GI at some point history of melanotic stools will require systemic anticoagulation given age indeterminant DVT and history of DVT I consider this patient to be high risk for venous thromboembolic disease. Continued close observation if she rebleeds again we will consult GI she needs definitive antiplatelet medication given that she has had a recent stent. Convert Keppra to oral administration phenytoin to continue IV will require tube feedings. We will continue to trend transaminitis may require changing statin therapy. Increase tube feeds to goal stop additional fluids continue diuretics to make goal net negative. Will ultimately require LTAC referral, continue ventilator weaning, trach collar as long as she can tolerate today. Anticoagulation with heparin for 24 hours then consider transition to warfarin if she is stable from a gastrointestinal bleeding standpoint Subjective Please see note entered in by Maurilio Garcia PA-C, regarding right upper extremity DVT. At this time, we are still awaiting the final read from radiology. Patient seen at the bedside this morning, trach in place. She is only able to respond to yes or no questions. She endorses pain in her right arm and, again, in her epigastric region. Denies any nausea or abdominal pain. Per nursing, no further melanotic stools. Denies any shortness of breath. Review of Systems Review of Systems: Unobtainable due to endotracheal tube Unobtainable secondary to tracheostomy tube in place. Please see HPI for essential review of system questions. Physical Exam Physical Exam: General: Ill and severely deconditioned 55-year-old female who is lying back in her hospital bed, relaxed, upon my arrival. She is in no acute distress. HEENT: NCAT. Eyes - Sclera are white, anicteric, and without injection. PERRL. Mouth - MMM dry with no tonsillar edema or exudates. Neck - No JVD appreciated. Cardiac: Normal rate and regular rhythm; S1 and S2 present with no murmurs, rubs, or gallops. Pulmonary: Tracheostomy in place. Symmetric expansion of the chest. Lungs do demonstrate rhonchi bilaterally, most appreciable in the right. Abdominal: Hypoactive bowel sounds. Abdomen was soft, nondistended. No facial grimacing with palpation. Extremities: Upper and lower extremities are warm and well perfused. Radial and dorsalis pedis pulses were 2+ b/l. Capillary refill assessed in UE was < 3 sec. No peripheral edema. Results & Data Results & Data ([facility]) Vital Signs (Past 12 Hours) Vital Signs Temp Pulse Resp BP Pulse Ox 06/17/21 04:48 84 147/68 H 06/17/21 03:00 37.6 C H 83 25 H 120/57 L 90 06/17/21 02:00 37.4 C 82 26 H 93 06/17/21 01:48 79 26 H 94 06/17/21 01:00 37.3 C 80 27 H 115/64 94 06/17/21 00:00 37.2 C 77 23 91 06/16/21 23:48 82 06/16/21 23:00 36.8 C 80 22 109/53 L 94 06/16/21 22:25 80 24 96 06/16/21 22:00 36.8 C 74 23 82/41 L 100 06/16/21 21:00 36.9 C 71 22 96/45 L 100 06/16/21 20:00 36.8 C 71 22 108/52 L 100 06/16/21 19:53 81 112/61 06/16/21 19:15 73 21 98 06/16/21 19:00 36.7 C 73 24 113/56 L 99 Critical Care Time Patient was discussed on multidisciplinary rounds. I have personally spent 45 minutes of critical care time in the direct management of this patient. This is a life/limb threatening event. This includes time spent evaluating patient, direct bedside care, chart review, placing orders, interpretation of diagnostic studies, discussion with consultants, patient, and/or family members regarding treatment decisions, as well as other required patient management activities. This time is exclusive of all separately billable procedures, and teaching time and separate from and in addition to any other critical care service time. Resident Activity Tracking Resident Involvement: Resident Care Provided Care Provided: [facility] Medicine (1) CHF (congestive heart failure) Heart failure chronicity: acute Heart failure type: unspecified Qualified Code(s): I50.9 - Heart failure, unspecified (2) Anemia Anemia type: other cause Other causes of anemia: other cause, not classified Qualified Code(s): D64.89 - Other specified anemias (3) Respiratory failure with hypoxia and hypercapnia Chronicity: acute on chronic Qualified Code(s): J96.21 - Acute and chronic respiratory failure with hypoxia; J96.22 - Acute and chronic respiratory failure with hypercapnia (4) Syncope Syncope type: unspecified Qualified Code(s): R55 - Syncope and collapse
[2021-06-17 05:37] LABS: Anisocytosis Present; Hypochromasia Present
[2021-06-17 06:24] LABS: Albumin Globulin Ratio 0.6 (0.9-2); BUN Creatinine Ratio 50.7 (10-20); Bilirubin,Total 0.6 mg/dl (0.2-1); Calcium 7.1 mg/dl (8.5-10.1); Creatinine Clr Calc Pharmacy 109.3 ml/min; Est GFR (African American) 132.8 ml/min; Est GFR (Non-African American) 114.6 ml/min; Globulin 3.2 gm/dl (2.5-4.0); Magnesium 1.9 mg/dl (1.8-2.4); Potassium 2.8 mmol/L (3.5-5.1); Total Protein 5.2 gm/dl (6.4-8.2)
[2021-06-17] MEDS: ICU ELECTROLYTE REPLACEMENT PROTOCOL SCH ×2 (06:38→16:27)
[2021-06-17] MEDS: BUDESONIDE 0.5 MG/2 ML VIAL (PULMICORT) NEB SCH ×2 (07:52→18:03)
[2021-06-17] MEDS: FORMOTEROL 20 MCG/2 ML VIAL NEB SCH ×2 (07:52→18:02)
--- NOTE | 2021-06-17 08:23 | Ultrasound Report ---
ULTRASOUND RIGHT UPPER EXTREMITY VENOUS CLINICAL HISTORY: Right arm pain and swelling. COMPARISON STUDY: No priors. TECHNIQUE: Portable real-time grayscale and color Doppler sonography of the deep veins of the right u pper extremity is performed. Compression and augmentation were utilized. FINDINGS: Imaged portions of the right internal jugular vein are patent and normally compressible. Th is is suboptimally assessed due to the adjacent tracheostomy. Nonocclusive deep venous thrombosis is identified in the right subclavian vein. Nonocclusive deep venous thrombosis is also seen within the right axillary vein and one of the right brachial veins. Nonocclusive superficial thrombus is seen wi thin the basilic vein. This becomes occlusive distally. The cephalic vein appears clear. The visualiz ed radial and ulnar veins could not be evaluated due to patient restraints. IMPRESSION: 1. Extensive and age indeterminant nonocclusive deep venous thrombosis in the right upper extremity a s above. 2. Occlusive superficial venous thrombus is seen within the basilic vein. ACT 112: Negative or not required by law. Electronically signed by: Jhonny Brewster M.D. 06/17/2021 8:22 AM
[2021-06-17] MEDS: POTASSIUM CHLORIDE 20 MEQ/15 ML UDC PO SCH (08:58)
[2021-06-17] MEDS: FLUTICASONE PROPIONATE NA SPR 16 GM BTL SCH (08:58)
[2021-06-17] MEDS: levETIRAcetam 1,000 MG in 0.9 % SODIUM CHLORIDE 100 ML IV SCH ×2 (09:00→20:42)
[2021-06-17] MEDS: POTASSIUM CHLORIDE / WTR 10 MEQ/100 ML PLCT IV SCH ×8 (09:01→19:20)
[2021-06-17] MEDS: PANTOprazole 40 MG in SYRINGE 0 ML IV SCH ×2 (09:01→20:44)
[2021-06-17] MEDS: THIAMINE HCL 100 MG in SYRINGE 9 ML IV SCH ×2 (09:01→20:41)
[2021-06-17] MEDS: PHENYTOIN 100 MG in SYRINGE 0 ML IV SCH ×3 (09:01→20:44)
[2021-06-17] MEDS: FUROSEMIDE 40 MG in SYRINGE 0 ML IV SCH ×2 (09:01→16:26)
[2021-06-17] MEDS: FERROUS SULFATE 325 MG/7.4 ML UDP PO SCH ×2 (09:02→16:26)
[2021-06-17] MEDS: PRIMIDONE 50 MG TAB PO SCH ×3 (09:03→20:46)
[2021-06-17] MEDS: CLOPIDOGREL BISULFATE 75 MG TAB PO SCH (09:03)
[2021-06-17] MEDS: PRAZOSIN HCL 1 MG CAP PO SCH ×2 (09:03→20:46)
[2021-06-17] MEDS: POT PHOSPHATE MONOBASIC W/ SOD TAB NG SCH ×3 (09:03→15:18)
[2021-06-17] MEDS: SODIUM CHLORIDE 0.9% 10ML FLUSH IV SCH ×3 (09:03→13:30)
[2021-06-17] MEDS: lisinopril 2.5 MG TAB PO SCH (09:03)
[2021-06-17] MEDS: ASPIRIN 81 MG CHEW NG SCH (09:03)
[2021-06-17] MEDS: LORATADINE 10 MG TAB PO SCH (09:03)
[2021-06-17] MEDS: MAGNESIUM OXIDE 400 MG TAB NG SCH ×2 (09:03→12:43)
[2021-06-17] MEDS: GABAPENTIN 250 MG/5 ML 470 ML BTL PO SCH ×3 (09:06→20:42)
[2021-06-17] MEDS: HEPARIN SODIUM/DEXTROSE 25,000 UNITS/500 ML BAG IV SCH (09:10)
--- NOTE | 2021-06-17 09:45 | Billing Data ---
Date of Service June 17, 2021 Coding Level of Care Code Critical Care 1st - mins
--- NOTE | 2021-06-17 12:40 | Cardiology Progress Note ---
Date of Service June 17, 2021 Assessment & Plan (1) Respiratory failure with hypoxia and hypercapnia: (2) Non-ST elevation [place] (NSTEMI): (3) ACS (acute coronary syndrome): (4) GI bleed: Plan: Patient is an extremely complex 55-year-old female with recent clinical course notable for presentation with syncope and profound anemia. She presents this admission in acute respiratory distress and congestive heart failure secondary to myocardial ischemia. Recent history of GI bleed Patient underwent emergent cardiac catheterization study demonstrating right coronary occlusion and high-grade proximal LAD stenosis successfully intervened on with drug-eluting stent. LV systolic function severely impaired on follow-up echocardiogram. Patient's history is notable for vasospastic angina, chronic coronary artery disease and significant peripheral vascular disease in addition to above issues The patient is now comfortable with a tracheostomy in place. She does have a new DVT of the arm and is going to be anticoagulated. With her history of recent GI bleeding it will be risky however, I do not see any other options. Admission and Anticipated Discharge Date Admission Date: June 12, 2021 Subjective The patient is alert and in no acute distress. Review of Systems Review of Systems: Unobtainable Physical Exam Physical Exam: General: no acute distress and stated age Head: normocephalic, no masses, lesions, tenderness or abnormalities Eyes: conjunctiva are pink and non-injected, sclera clear Neck: Tracheostomy Chest: normal shape and normal respiratory effort Lungs: clear to auscultation and percussion Cardiac Exam: - regular rate & rhythm, no murmurs gallops or rubs - normal S1, normal S2 Pulses: 2(+) throughout Abdomen: abdomen soft, non-tender, no abnormal masses and no hepatosplenomegaly Musculoskeletal: no gait disturbance, no joint inflammation, no deforming arthritis Extremities: no edema and no cyanosis Neuro: grossly normal exam Results & Data ([place]) Vital Signs (Past 12 Hours) Vital Signs Temp Pulse Resp BP Pulse Ox 06/17/21 09:02 96 H 156/91 H 06/17/21 07:48 91 H 27 H 93 06/17/21 06:00 38.0 C H 83 21 152/72 H 94 06/17/21 05:00 37.9 C H 78 22 139/72 94 06/17/21 04:48 84 147/68 H 10/18/21 04:24 80 24 94 06/17/21 04:00 37.7 C H 85 28 H 147/68 H 95 06/17/21 03:00 37.6 C H 83 25 H 120/57 L 90 06/17/21 02:00 37.4 C 82 26 H 93 06/17/21 01:48 79 26 H 94 06/17/21 01:00 37.3 C 80 27 H 115/64 94 Laboratory Results Laboratory Results - last 24 hr 06/16/21 06/16/21 06/17/21 13:37 18:10 01:08 WBC RBC Hgb Hct MCV MCH MCHC RDW Std Deviation RDW Coeff of Lola Plt Count MPV Immature Gran % (Auto) Neut % (Auto) Lymph % (Auto) Rapides % (Auto) Eos % (Auto) Baso % (Auto) Neut # (Auto) Lymph # (Auto) [place]ides # (Auto) Eos # (Auto) Baso # (Auto) Immature Gran # (Auto) Hypochromasia Anisocytosis PT INR APTT PTT Ratio Sodium Potassium Chloride Carbon Dioxide Anion Gap BUN Creatinine Est Cr Clr Drug Dosing Est GFR ( Amer) Est GFR (Non-Af Amer) BUN/Creatinine Ratio Glucose POC Glucose 132 H 110 H 119 H Calcium Phosphorus Magnesium Total Bilirubin AST ALT Alkaline Phosphatase Total Protein Albumin Globulin Albumin/Globulin Ratio Blood Type Antibody Screen 06/17/21 06/17/21 06/17/21 01:45 01:45 04:56 WBC RBC Hgb Hct MCV MCH MCHC RDW Std Deviation RDW Coeff of Lola Plt Count MPV Immature Gran % (Auto) Neut % (Auto) Lymph % (Auto) Rapides % (Auto) Eos % (Auto) Baso % (Auto) Neut # (Auto) Lymph # (Auto) [place] # (Auto) Eos # (Auto) Baso # (Auto) Immature Gran # (Auto) Hypochromasia Anisocytosis PT INR APTT 31.9 H PTT Ratio 1.2 Sodium 149 H Potassium 2.8 L D Chloride 113 H Carbon Dioxide 31 Anion Gap 5.0 BUN 21 H D Creatinine 0.42 L Est Cr Clr Drug Dosing 109.3 Est GFR ( Amer) 132.8 Est GFR (Non-Af Amer) 114.6 BUN/Creatinine Ratio 50.7 H Glucose 113 H POC Glucose Calcium 7.1 L Phosphorus 2.0 L Magnesium 1.9 Total Bilirubin 0.6 AST 1078 H ALT 2367 H Alkaline Phosphatase 185 H Total Protein 5.2 L Albumin 2.0 L Globulin 3.2 Albumin/Globulin Ratio 0.6 L Blood Type O Positive Antibody Screen NEGATIVE 06/17/21 06/17/21 04:56 04:56 WBC 9.98 RBC 3.36 L Hgb 9.1 L Hct 30.4 L MCV 90.5 MCH 27.1 MCHC 29.9 L RDW Std Deviation 67.3 H RDW Coeff of Lola 20.6 H Plt Count 104 L MPV 10.8 H Immature Gran % (Auto) 0.4 Neut % (Auto) 82.8 Lymph % (Auto) 7.5 Rapides % (Auto) 9.1 Eos % (Auto) 0.2 Baso % (Auto) 0.0 Neut # (Auto) 8.26 H Lymph # (Auto) 0.75 L Rapides # (Auto) 0.91 H Eos # (Auto) 0.02 Baso # (Auto) 0.00 Immature Gran # (Auto) 0.04 H Hypochromasia Present Anisocytosis Present PT 14.1 H INR 1.4 H APTT PTT Ratio Sodium Potassium Chloride Carbon Dioxide Anion Gap BUN Creatinine Est Cr Clr Drug Dosing Est GFR ( Amer) Est GFR (Non-Af Amer) BUN/Creatinine Ratio Glucose POC Glucose Calcium Phosphorus Magnesium Total Bilirubin AST ALT Alkaline Phosphatase Total Protein Albumin Globulin Albumin/Globulin Ratio Blood Type Antibody Screen Medications Administered Current Inpatient Medications Albuterol (Albut/Ipratrop 3mg/0.5mg Neb 3 Ml Vial) 3 ml NEB Q4R PRN PRN Reason: Wheezing Stop: 07/13/21 10:59 Last Admin: 06/16/21 11:22 Dose: 3 ml Documented by: Albuterol (Albut/Ipratrop 3mg/0.5mg Neb 3 Ml Vial) 3 ml NEB TIDR [facility]IS[facility] Stop: 07/17/21 08:59 Aspirin (Aspirin 81 Mg Chew) 81 mg NG DAILY [facility]ISSE Stop: 07/13/21 16:14 Last Admin: 06/17/21 09:03 Dose: 81 mg Documented by: Atorvastatin Calcium (Atorvastatin 40 Mg Tab) 80 mg PO HS [facility]ISSE Stop: 07/12/21 20:59 Last Admin: 06/16/21 19:54 Dose: 80 mg Documented by: Budesonide (Budesonide 0.5 Mg/2 Ml Vial (Pulmicort)) 0.5 mg NEB BIDR [facility] Stop: 07/13/21 18:59 Last Admin: 06/17/21 07:52 Dose: 0.5 mg Documented by: Clopidogrel Bisulfate (Clopidogrel Bisulfate 75 Mg Tab) 75 mg PO QAM [facility] Stop: 07/13/21 16:14 Last Admin: 06/17/21 09:03 Dose: 75 mg Documented by: Enteral Nutritional Formula (Peptamen 1.5 Armando 1,000 Ml Bag) 1,000 ml GT UD DENISSE; Protocol Stop: 07/15/21 13:29 Last Admin: 06/16/21 16:23 Dose: 1,000 ml Documented by: Epinephrine HCl (Epinephrine Inj 1 Mg/Ml Amp) 0.3 mg IM UD PRN PRN Reason: Allergic Reaction Stop: 07/12/21 05:16 Fentanyl Citrate (Fentanyl Citrate 100 Mcg/2 Ml Vial) 25 mcg IV Q4H PRN PRN Reason: Pain Stop: 06/30/21 19:43 Last Admin: 06/17/21 04:43 Dose: 25 mcg Documented by: Ferrous Sulfate (Ferrous Sulfate 325 Mg/7.4 Ml Udp) 325 mg PO BIDM [facility] Stop: 07/15/21 16:59 Last Admin: 06/17/21 09:02 Dose: 325 mg Documented by: Fluticasone Propionate (Fluticasone Propionate Na Spr 16 Gm Btl) 2 sprays NA DAILY [facility] Stop: 07/12/21 08:59 Last Admin: 06/17/21 08:58 Dose: 2 sprays Documented by: Formoterol Fumarate (Formoterol 20 Mcg/2 Ml Vial) 20 mcg NEB BIDR [facility] Stop: 07/13/21 10:29 Last Admin: 06/17/21 07:52 Dose: 20 mcg Documented by: Gabapentin (Gabapentin 250 Mg/5 Ml 470 Ml Btl) 900 mg PO TID [facility] Stop: 07/15/21 13:59 Last Admin: 06/17/21 09:06 Dose: 900 mg Documented by: Phenytoin 100 mg/ Syringe 2 mls @ 1 mls/min IV TID [facility] Stop: 07/12/21 08:59 Last Admin: 06/17/21 09:01 Dose: 1 mls/min Documented by: Furosemide 40 mg/ Syringe 4 mls @ 4 mls/min IV BID17 [facility] Stop: 07/12/21 08:59 Last Admin: 06/17/21 09:01 Dose: 4 mls/min Documented by: Levetiracetam 1,000 mg/ Sodium (Chloride) 110 mls @ 440 mls/hr IV BID [facility] Stop: 07/13/21 08:59 Last Infusion: 06/17/21 09:55 Dose: Infused Documented by: Pantoprazole Sodium 40 mg/ (Syringe) 10 mls @ 5 mls/min IV BID@0900,2100 [facility] Stop: 07/14/21 20:59 Last Admin: 06/17/21 09:01 Dose: 5 mls/min Documented by: Ampicillin Sodium/Sulbactam Sodium 1,500 mg/ Sodium Chloride 104 mls @ 200 mls/hr IV Q6H [facility]; Protocol Stop: 06/21/21 19:59 Last Infusion: 06/17/21 09:55 Dose: Infused Documented by: Acetaminophen (Ofirmev) 1,000 mg in 100 mls @ 400 mls/hr IV Q8H PRN PRN Reason: Fever Stop: 06/17/21 22:07 Last Infusion: 06/16/21 21:13 Dose: Infused Documented by: Propofol (Diprivan) 1,000 mg in 100 mls @ 0 mls/hr IV .Q0M [facility]; Protocol Stop: 06/18/21 19:14 Last Admin: 06/16/21 20:41 Dose: Not Given Documented by: Heparin Sodium/Dextrose (Heparin Sodium/Dextrose) 25,000 units in 500 mls @ 11 mls/hr IV .Q24H [facility]; Protocol Stop: 07/17/21 01:44 Last Admin: 06/17/21 09:10 Dose: 550 units/hr, 11 mls/hr Documented by: Potassium Chloride (K Harpreet / Wtr) 10 meq in 100 mls @ 100 mls/hr IV Q1H [facility] Stop: 06/17/21 14:59 Last Admin: 06/17/21 09:56 Dose: 100 mls/hr Documented by: Thiamine HCl 100 mg/ Syringe 10 mls @ 2 mls/min IV BID [facility] Stop: 07/17/21 20:59 Insulin Aspart (Insulin Aspart 100 Units/Ml 3 Ml Pen) 0 units SC Q6 [facility] Stop: 07/13/21 11:59 Last Admin: 06/17/21 06:00 Dose: Not Given Documented by: Isosorbide Dinitrate (Isosorbide Dinitrate 5 Mg Tab) 5 mg PO Q3H PRN PRN Reason: chest pain Stop: 07/12/21 04:37 Isosorbide Mononitrate (Isosorbide Rapides Extended Rel 60 Mg Tabcr) 120 mg PO BID [facility] Stop: 07/12/21 08:59 Last Admin: 06/12/21 08:32 Dose: Not Given Documented by: Levetiracetam (Levetiracetam Oral Soln 100mg/Ml) 1,000 mg PO BID [facility] Stop: 07/17/21 20:59 Lisinopril (Lisinopril 2.5 Mg Tab) 2.5 mg PO DAILY [facility] Stop: 07/14/21 08:59 Last Admin: 06/17/21 09:03 Dose: 2.5 mg Documented by: Loratadine (Loratadine 10 Mg Tab) 10 mg PO DAILY [facility] Stop: 07/12/21 08:59 Last Admin: 06/17/21 09:03 Dose: 10 mg Documented by: Metoprolol Tartrate (Metoprolol Tartrate 1 Mg/Ml Vial) 2.5 mg IV Q4 [facility] Stop: 07/14/21 11:59 Last Admin: 06/17/21 09:02 Dose: 2.5 mg Documented by: Metoprolol Tartrate (Metoprolol Tartrate 25 Mg Tab) 12.5 mg PO TID [facility] Stop: 07/17/21 13:59 Miscellaneous (Icu Electrolyte Replacement Protocol) 1 ea N/A BID@ [facility]; Protocol Stop: 06/19/21 17:59 Last Admin: 06/17/21 06:38 Dose: 1 ea Documented by: Nitroglycerin (Nitroglycerin 2% Ointment 30gm Tube) 0.5 inch EXT Q6H [facility] Stop: 07/14/21 11:14 Last Admin: 06/17/21 04:49 Dose: 0.5 inch Documented by: Potassium Chloride (Potassium Chloride 20 Meq/15 Ml Udc) 40 meq PO DAILY [facility] Stop: 07/16/21 08:59 Last Admin: 06/17/21 08:58 Dose: 40 meq Documented by: Potassium Phosphate (Pot Phosphate Monobasic W/ Sod Tab) 1 tab NG Q4H [facility] Stop: 06/17/21 14:46 Last Admin: 06/17/21 09:03 Dose: 1 tab Documented by: Prazosin HCl (Prazosin Hcl 1 Mg Cap) 1 mg PO BID [facility] Stop: 07/12/21 08:59 Last Admin: 06/17/21 09:03 Dose: 1 mg Documented by: Primidone (Primidone 50 Mg Tab) 50 mg PO TID [facility] Stop: 07/12/21 08:59 Last Admin: 06/17/21 09:03 Dose: 50 mg Documented by: Propofol (Propofol Bolus From Bag) 20 mg IV Q5M PRN PRN Reason: Sedation Stop: 06/18/21 19:01 Sodium Chloride (Sodium Chloride 0.9% 10ml Flush) 20 ml IV TID [facility] Stop: 07/12/21 08:59 Last Admin: 06/17/21 09:03 Dose: 20 ml Documented by: Sterile Water (Tube Feeding Water Flush) 60 ml GT Q4H [facility] Stop: 07/15/21 13:29 Last Admin: 06/17/21 09:04 Dose: 60 ml Documented by: (1) Respiratory failure with hypoxia and hypercapnia Chronicity: acute on chronic Qualified Code(s): J96.21 - Acute and chronic respiratory failure with hypoxia; J96.22 - Acute and chronic respiratory failure with hypercapnia
[2021-06-17] MEDS: METOPROLOL TARTRATE 25 MG TAB PO SCH ×2 (14:20→20:45)
[2021-06-17 15:28] LABS: Partial Thromboplastin Ratio 1.3; Partial Thromboplastin Time 34.5 Seconds (21.0-31.0)
[2021-06-17] MEDS: ALBUT/IPRATROP 3MG/0.5MG NEB 3 ML VIAL NEB SCH (16:44)
[2021-06-17] MEDS: oxyCODONE HCL SOLN 5 MG/5 ML UDC PO PRN (18:36)
[2021-06-17] MEDS ORDERED: oxyCODONE HCL SOLN 5 MG/5 ML UDC ONE (18:36)
--- NOTE | 2021-06-17 18:58 | Hospitalist Progress Note ---
Date of Service June 17, 2021 Assessment & Plan (1) Non-ST elevation [place] (NSTEMI): Plan: ASSESSMENT AND PLAN: This is a 55-year-old female who presents with agitation, chest pain, pain all over and found to be with non-ST elevated myocardial infarction and congestive heart failure. 1. Respiratory Distress: The patient is s/p intubation and mechanical ventilation, possibly secondary to congestive heart failure, received Lasix in ER -- self extubated 06/14 -- reintubated 06/15 -- s/p trach placement 06/16 further management per [facility] service Possible Aspiration Pneumonia -- on Unasyn -- respiratory status stable overall monitor closely 2. Non-ST elevated myocardial infarction: Status post cardiac catheterization and stent to the proximal LAD lesion, post-cath care as per cardiology. Ischemic Cardiomyopathy -- s/p Cardiac Cath 06/[address] Hinojosa: 1. Severe multivessel vessel coronary artery disease -90% possibly acute proximal LAD stenosis. Patent mid LAD stent 100% chronic mid RCA occlusion. Distal vessel fills via [id number] collaterals. 2. Elevated intracardiac filling pressure. LVEDP 34 3. Severe obstructive abdominal aortic disease (unable to pass 5 Fr catheter across stenosis). 4. Successful PCI of proximal to mid LAD with single drug-eluting stent (3.0 x 18 mm Soham; postdilated with 3.5 NC, overlaps proximal aspect of prior stent). Echo: 25-30% extensive wall motion abnormalities with the inferior wall being akinetic at the base on ASA, Plavix, Imdur-->changed to Nitropaste, IV Metoprolol, Lisinopril, Lipitor on Lasix 40mg IV BID continue 3. Anemia, possible GI bleed -- Hemoglobin was 5.4 last admission, required 4 units of PRBCs. Currently hemoglobin is 8.7. ER started on Protonix drip today which will continue. -- s/p 1 unit pRBC given -- Hg 10 -- GI not recommending EGD/Colonoscopy due to above given Protonix drip , transition to IV BID Right Arm DVT -- on heparin drip monitor for GI bleeding 4. Possible urinary tract infection -- blood and urine cultures negative so far 5. Elevated lactic acid and acidosis: Most likely from the acute coronary syndrome and respiratory distress. -- improved 6. The patient is on chronic pain medication. T Oxycodone PRN 7. History of coronary artery disease. History of LAD stenting in the past as well as vasospastic angina 8. History of VT arrest due to coronary artery vasospasm versus acquired QT prolongation possible of azithromycin exposure, status post single chamber AICD. 9. History of peripheral vascular disease, superficial femoral artery occlusion, left subclavian artery stenosis. on aspirin and Plavix. 10. History of myotonic muscular dystrophy. PT, OT when stable. 11. History of pulmonary embolism. Coumadin was discontinued due to GI bleed in 2019. 12. History of left carotid endarterectomy in 2015. 13. History of chronic obstructive pulmonary disease: Continue her home inhalers. 14. History of seizures: On Keppra and phenytoin 15. History of diastolic congestive heart failure: per above 16. History of hypertension: 17. History of deep venous thrombosis prophylaxis: Will place on sequential compression devices for now because of possible gastrointestinal bleed. 18. Underweight -- Nutrition consult Admission and Anticipated Discharge Date Admission Date: June 12, 2021 Subjective ff up for NSTEMI,Respiratory failure etc seen resting in bed, alert, oriented but weak states she feels tired, has not slept well, having low back pain no chest pain, dyspnea, palpitations, dizziness no other symptoms Review of Systems Review of Systems: all noted and negative except for above Results & Data [facility] Vital Signs (Past 12 Hours) Vital Signs Temp Pulse Pulse Resp BP Pulse Ox 06/17/21 18:03 81 20 96 06/17/21 16:00 37.5 C 80 24 114/70 97 06/17/21 15:00 37.5 C 80 27 H 133/66 95 06/17/21 14:00 37.4 C 83 23 97 06/17/21 13:00 37.5 C 77 26 H 128/68 97 06/17/21 12:44 87 105/59 L 06/17/21 12:00 37.9 C H 90 28 H 125/64 96 06/17/21 11:00 38.1 C H 91 H 36 H 126/62 91 06/17/21 10:00 38.1 C H 95 H 33 H 128/61 92 06/17/21 09:02 96 H 156/91 H 06/17/21 09:00 38.1 C H 93 H 25 H 124/61 94 06/17/21 08:00 38.1 C H 88 26 H 121/61 94 06/17/21 07:48 91 H 27 H 93 06/17/21 07:00 38.1 C H 92 H 32 H 93 all noted and reviewed including below
[2021-06-17] MEDS ORDERED: HEPARIN SOD (PORCINE) 1000 UNIT/ML IV ONE (19:15)
[2021-06-17] MEDS: levETIRAcetam ORAL SOLN 100MG/ML PO SCH (20:43)
[2021-06-17] MEDS: ATORVASTATIN 40 MG TAB PO SCH (20:46)
[2021-06-18] MEDS: oxyCODONE HCL SOLN 5 MG/5 ML UDC PO PRN ×6 (00:32→23:47)
[2021-06-18] MEDS: TUBE FEEDING WATER FLUSH GT SCH ×6 (01:13→20:21)
[2021-06-18 01:44] LABS: Partial Thromboplastin Ratio 1.5; Partial Thromboplastin Time 38.7 Seconds (21.0-31.0)
[2021-06-18] MEDS: AMPICILLIN/SULBACTAM SOD 1,500 MG in 0.9 % SODIUM CHLORIDE 100 ML IV SCH ×4 (01:56→20:19)
[2021-06-18] MEDS: NITROGLYCERIN 2% OINTMENT 30GM TUBE EXT SCH ×4 (05:31→23:33)
[2021-06-18] MEDS: ICU ELECTROLYTE REPLACEMENT PROTOCOL SCH ×2 (05:33→18:02)
[2021-06-18] MEDS: INSULIN ASPART 100 UNITS/ML 3 ML PEN SC SCH ×4 (05:40→23:45)
--- NOTE | 2021-06-18 05:47 | Critical Care Progress Note ---
Date of Service June 18, 2021 Assessment & Plan (1) Non-ST elevation [place] (NSTEMI): Plan: Reason Critically Ill: 55-year-old female presents to the ICU following event of acute coronary syndrome resulting in acute HFrEF with hypoxic hypercapnic respiratory failure requiring emergent intubation. Now post cardiac catheter she received a single drug-eluting stent to the proximal LAD for 90% stenosis and is also being monitored for a GIB and acute hypoxic/hypercapnic respiratory failure, likely secondary to component of acute CHF and severe underlying COPD. She is hemodynamically stable. Neuro - Seizure disordercontinue Keppra, phenytoin, primidone Polyneuropathycontinue Neurontin Patient is extensively deconditioned and requires ongoing PT, OT, and LTAC when appropriate. Appreciate case management aid with this. Cardiac - appreciate cardiology assistance Acute coronary syndromepatient presented with NSTEMI, acute HFrEF, respiratory distress -Status post successful PCI with single AKIKO to the proximal LAD for 90% stenosis -Continue ASA, plavix, atorvastatin 80, ACEI, nitrate -TTE as below Acute HFrEF-in setting of NSTEMI, as above -TTE demonstrating severe LV dysfunction with LVEF 25-30%, akinesis of inferior wall and inferior septum, hypokinesis of apex/posterinferior mixon -Transition to chlorthiazide 500mg b.i.d. x 1 day - can consider additional doses moving forward, replete K -Metoprolol tartrate 12.5mg PO t.i.d. -Continue CAD meds, as above -Continue holding home diltiazem in setting of acute HFrEF - appreciate cardiology input Prinzmetal angina - Hold diltiazem Respiratory - Acute hypoxic/hypercapnic respiratory failuresuspect large component of underlying COPD, compounded by acute CHF in setting of NSTEMI, and likely aspiration PNA -Unfortunately, 3 significant episodes of respiratory deterioration requiring intubation and mechanical ventilation Status post tracheostomy and bronchoscopy on 06/16. Consider downsizing vs. decanulation today. -Trial trach collar today, ween vent settings -Stop nebs: budesonide, formoterol -Begin Anoro (LAMA/LABA) + Pulmicort (ICS) -Diuresis as above -Continue Unasyn for presumed aspiration PNA -- will require total of 10-day course (started 06/13) -Chest percussion therapy PRN to aid with mucociliary clearance GI - GI bleedpatient with positive occult stool in the ED and multiple melanotic stools during early admission -Patient at higher risk for PUD, mesenteric ischemia given PAD and ACS on presentation -Recently admitted for anemia requiring 4U pRBC in May - did not return for outpatient endoscopy -Anemia stable on repeat labs -Protonix b.i.d. -Continue DAPT in setting of ACS -GI previously consulted - given ACS, previously recommended conservative ma nagement. Will require endoscopy once stable from recent ACS Transaminitis - Significantly elevated from admission. AST 454 / ALT 1740 today (from AST 1078 / ALT 2367 yesterday). Downtrending steadily. Likely component from congestion, but also possibly statin-induced (atorvastatin 80mg/day). Consider transitioning to alternative statin if unimproved Diet - NGT with feeds ongoing. Formal swallow eval today by SOCIAL SCIENCE MANAGER. Continue thiamine for potential refeeding syndrome. Nutrition consulted - appreciate assistance. Stop IVF. RENAL/LYTES - Hypernatremia noted. Chlorothiazide, as above. Monitor. BUN and creatinine stable with ongoing diuresis. Replete potassium. - Foleystrict I's and O's -- adequate ENDO - No h/o DM or thyroid disease. Continue ICU hyperglycemic protocol HEME - Anemiacontributory to acute blood loss from GI bleed -Anemia, hemodynamics stable (Hgb ~9-10) -s/p 1U pRBC on 06/12 -Monitor in setting of re-initation of heparin gtt -Transfuse Hgb < 8 RUE DVT - US demonstrating "Extensive and age indeterminant nonocclusive deep venous thrombosis in the right upper extremity ... [as well as] occlusive superficial venous thrombus seen within the basilic vein." Initiated heparin gtt on 06/17 at 1100. Continue. Give warfarin 5mg x 1 today. INR 2-3 goal. ID - Chest x-ray in clinical course concerning for aspiration pneumonia. Continue Unasyn, today being day 5 of 10 (end 06/23). Gram stain from bronchoscopy negative. Await culture. LINES/IV ACCESS - Peripheral IVs, NGT, Rosas DVT PROPHYLAXIS - Heparin currently. See DVT above for current management. 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 De Leon was resident physician during care of patient. I separately evaluated patient for jha portions of the history and the exam. I was present during the critical portion of medical decision making, and I discussed the case with the resident. I generally agree with the findings and plan. No adverse event from heparin x24 hours will transition to warfarin and keep heparin in the meantime 5 mg p.o. today. Video swallow today, patient tolerated trach collar x24 hours we will continue with just trach collar consideration given to downsize versus decannulation. Continue diuresis with Diuril today given hypernatremia. Transaminitis continues to improve likely secondary to congestive hepatopathy. Patient stable for downgrade out of ICU, ICU/pulmonary will follow tracheostomy for tracheostomy management. Subjective Reviewed night events with overnight provider and nursing staff. Patient did well on the trach. No concerns. Breathing pattern has remained stable. When I went to see patient at the bedside this morning, she did report significant heartburn. She is asking for something to help with the pain. She denies any chest pain or shortness of breath. Denies any pain elsewhere. No nausea. No melanotic stools. Review of Systems Review of Systems: Review of systems cannot be completed thoroughly due to tracheostomy tube in place. Please see HPI for pertinent details. Physical Exam Physical Exam: General: Deconditioning, but overall well-appearing 55-year-old female who is lying back in her hospital bed, relaxed, upon my arrival. She is in no acute distress. HEENT: NCAT. Eyes - Sclera are white, anicteric, and without injection. PERRL. Mouth - MMM dry with no tonsillar edema or exudates. Neck - No JVD appreciated. Cardiac: Normal rate and regular rhythm; S1 and S2 present with no murmurs, rubs, or gallops. Pulmonary: Tracheostomy in place. Symmetric expansion of the chest. Lungs do demonstrate rhonchi bilaterally, most appreciable in the Left this morning. Compared to yesterday, right-sided lung sounds have improved. Abdominal: Hypoactive bowel sounds. Abdomen was soft and nondistended. There is mild tenderness to palpation in the epigastric region. Extremities: Upper and lower extremities are warm and well perfused. Radial and dorsalis pedis pulses were 2+ b/l. Capillary refill assessed in UE was < 3 sec. No peripheral edema. Results & Data Results & Data ([facility]) Vital Signs (Past 12 Hours) Vital Signs Temp Pulse Pulse Resp BP Pulse Ox 06/18/21 04:00 37.4 C 86 22 121/65 90 06/18/21 03:00 37.2 C 81 22 122/64 91 06/18/21 02:00 37.2 C 78 24 110/61 93 06/18/21 01:00 37.2 C 76 23 107/63 91 06/18/21 00:00 37.4 C 77 22 96/55 L 86 L 06/17/21 23:00 37.3 C 75 27 H 106/64 92 06/17/21 22:30 37.3 C 76 24 99/67 L 92 06/17/21 21:30 37.6 C H 85 17 101/65 97 06/17/21 20:00 37.6 C H 76 23 96 06/17/21 19:00 37.6 C H 84 16 94 06/17/21 18:03 81 20 96 Resident Activity Tracking Resident Involvement: Resident Care Provided Care Provided: Adult Hospital Medicine (1) CHF (congestive heart failure) Heart failure chronicity: acute Heart failure type: unspecified Qualified Code(s): I50.9 - Heart failure, unspecified (2) Anemia Anemia type: other cause Other causes of anemia: other cause, not classified Qualified Code(s): D64.89 - Other specified anemias (3) Respiratory failure with hypoxia and hypercapnia Chronicity: acute on chronic Qualified Code(s): J96.21 - Acute and chronic respiratory failure with hypoxia; J96.22 - Acute and chronic respiratory failure with hypercapnia (4) Syncope Syncope type: unspecified Qualified Code(s): R55 - Syncope and collapse
[2021-06-18] MEDS ORDERED: FAMOTIDINE 20 MG in SYRINGE 3 ML IV ONE (07:15)
[2021-06-18] MEDS: FORMOTEROL 20 MCG/2 ML VIAL NEB SCH (07:27)
[2021-06-18] MEDS: BUDESONIDE 0.5 MG/2 ML VIAL (PULMICORT) NEB SCH (07:28)
[2021-06-18] MEDS: FERROUS SULFATE 325 MG/7.4 ML UDP PO SCH ×2 (07:32→16:33)
[2021-06-18] MEDS: levETIRAcetam ORAL SOLN 100MG/ML PO SCH ×2 (07:33→20:26)
[2021-06-18] MEDS: ASPIRIN 81 MG CHEW NG SCH (07:34)
[2021-06-18] MEDS: CLOPIDOGREL BISULFATE 75 MG TAB PO SCH (07:34)
[2021-06-18] MEDS: FLUTICASONE PROPIONATE NA SPR 16 GM BTL SCH (07:34)
[2021-06-18] MEDS: lisinopril 2.5 MG TAB PO SCH (07:35)
[2021-06-18] MEDS: levETIRAcetam 1,000 MG in 0.9 % SODIUM CHLORIDE 100 ML IV SCH (07:36)
[2021-06-18] MEDS: PANTOprazole 40 MG in SYRINGE 0 ML IV SCH ×2 (07:36→20:20)
[2021-06-18] MEDS: THIAMINE HCL 100 MG in SYRINGE 9 ML IV SCH ×2 (07:38→20:20)
[2021-06-18] MEDS: POTASSIUM CHLORIDE 20 MEQ/15 ML UDC PO SCH (07:38)
[2021-06-18] MEDS: PRAZOSIN HCL 1 MG CAP PO SCH ×2 (07:38→20:21)
[2021-06-18] MEDS: LORATADINE 10 MG TAB PO SCH (07:39)
[2021-06-18] MEDS: GABAPENTIN 250 MG/5 ML 470 ML BTL PO SCH ×3 (07:39→20:19)
[2021-06-18] MEDS: METOPROLOL TARTRATE 25 MG TAB PO SCH ×3 (07:39→20:22)
[2021-06-18] MEDS: PHENYTOIN 100 MG in SYRINGE 0 ML IV SCH ×3 (07:40→20:20)
[2021-06-18] MEDS: PRIMIDONE 50 MG TAB PO SCH ×3 (07:41→20:20)
[2021-06-18] MEDS: SODIUM CHLORIDE 0.9% 10ML FLUSH IV SCH ×3 (07:41→20:25)
[2021-06-18] MEDS: PEPTAMEN 1.5 CAL 1,000 ML BAG GT SCH (08:56)
[2021-06-18 09:03] LABS: Mean Corpuscular Hgb Conc 29.4 g/dL (32-36)
--- NOTE | 2021-06-18 09:07 | Cardiology Progress Note ---
Date of Service June 18, 2021 Assessment & Plan (1) Respiratory failure with hypoxia and hypercapnia: (2) Non-ST elevation [place] (NSTEMI): (3) ACS (acute coronary syndrome): (4) GI bleed: Plan: Patient is an extremely complex 55-year-old female with recent clinical course notable for presentation with syncope and profound anemia. She presents this admission in acute respiratory distress and congestive heart failure secondary to myocardial ischemia. Recent history of GI bleed Patient underwent emergent cardiac catheterization study demonstrating right coronary occlusion and high-grade proximal LAD stenosis successfully intervened on with drug-eluting stent. LV systolic function severely impaired on follow-up echocardiogram. Patient's history is notable for vasospastic angina, chronic coronary artery disease and significant peripheral vascular disease in addition to above issues The patient had no new events overnight. She is resting comfortably. Still waiting for GI recommendations regarding anticoagulation. Admission and Anticipated Discharge Date Admission Date: June 12, 2021 Subjective No new events overnight Review of Systems Review of Systems: Unobtainable Physical Exam Physical Exam: General: no acute distress and stated age Head: normocephalic, no masses, lesions, tenderness or abnormalities Eyes: conjunctiva are pink and non-injected, sclera clear Neck: Tracheostomy Chest: normal shape and normal respiratory effort Lungs: clear to auscultation and percussion Cardiac Exam: - regular rate & rhythm, no murmurs gallops or rubs - normal S1, normal S2 Pulses: 2(+) throughout Abdomen: abdomen soft, non-tender, no abnormal masses and no hepatosplenomegaly Musculoskeletal: no gait disturbance, no joint inflammation, no deforming arthritis Extremities: no edema and no cyanosis Neuro: grossly normal exam Results & Data ([facility]) Vital Signs (Past 12 Hours) Vital Signs Temp Pulse Pulse Resp BP Pulse Ox 06/18/21 07:02 74 22 94 06/18/21 06:00 37.5 C 86 23 153/75 H 91 06/18/21 05:00 37.4 C 81 22 117/69 92 06/18/21 04:00 37.4 C 86 22 121/65 90 06/18/21 03:00 37.2 C 81 22 122/64 91 06/18/21 02:00 37.2 C 78 24 110/61 93 06/18/21 01:00 37.2 C 76 23 107/63 91 06/18/21 00:00 37.4 C 77 22 96/55 L 86 L 06/17/21 23:00 37.3 C 75 27 H 106/64 92 06/17/21 22:30 37.3 C 76 24 99/67 L 92 06/17/21 21:30 37.6 C H 85 17 101/65 97 Laboratory Results Laboratory Results - last 24 hr 06/17/21 06/17/21 06/17/21 13:01 14:59 17:43 WBC RBC Hgb Hct MCV MCH MCHC Plt Count APTT 34.5 H PTT Ratio 1.3 Sodium Potassium Chloride Carbon Dioxide Anion Gap BUN Creatinine Est Cr Clr Drug Dosing Est GFR ( Amer) Est GFR (Non-Af Amer) BUN/Creatinine Ratio Glucose POC Glucose 157 H 154 H Calcium Phosphorus Magnesium Total Bilirubin AST ALT Alkaline Phosphatase Total Protein Albumin Globulin Albumin/Globulin Ratio 06/17/21 06/18/21 06/18/21 23:26 01:15 03:21 WBC RBC Hgb Hct MCV MCH MCHC Plt Count APTT 38.7 H PTT Ratio 1.5 Sodium Potassium Chloride Carbon Dioxide Anion Gap BUN Creatinine Est Cr Clr Drug Dosing Est GFR ( Amer) Est GFR (Non-Af Amer) BUN/Creatinine Ratio Glucose POC Glucose 149 H 178 H Calcium Phosphorus Magnesium Total Bilirubin AST ALT Alkaline Phosphatase Total Protein Albumin Globulin Albumin/Globulin Ratio 06/18/21 06/18/21 06/18/21 05:35 08:36 08:36 WBC Pending RBC Pending Hgb Pending Hct Pending MCV Pending MCH Pending MCHC 29.4 L Plt Count Pending APTT PTT Ratio Sodium Pending Potassium Pending Chloride Pending Carbon Dioxide Pending Anion Gap Pending BUN Pending Creatinine Pending Est Cr Clr Drug Dosing Pending Est GFR ( Amer) Pending Est GFR (Non-Af Amer) Pending BUN/Creatinine Ratio Pending Glucose Pending POC Glucose 169 H Calcium Pending Phosphorus Pending Magnesium Pending Total Bilirubin Pending AST Pending ALT Pending Alkaline Phosphatase Pending Total Protein Pending Albumin Pending Globulin Pending Albumin/Globulin Ratio Pending 06/18/21 08:36 WBC RBC Hgb Hct MCV MCH MCHC Plt Count APTT Pending PTT Ratio Pending Sodium Potassium Chloride Carbon Dioxide Anion Gap BUN Creatinine Est Cr Clr Drug Dosing Est GFR ( Amer) Est GFR (Non-Af Amer) BUN/Creatinine Ratio Glucose POC Glucose Calcium Phosphorus Magnesium Total Bilirubin AST ALT Alkaline Phosphatase Total Protein Albumin Globulin Albumin/Globulin Ratio Medications Administered Current Inpatient Medications Albuterol (Albut/Ipratrop 3mg/0.5mg Neb 3 Ml Vial) 3 ml NEB Q4R PRN PRN Reason: Wheezing Stop: 07/13/21 10:59 Last Admin: 06/16/21 11:22 Dose: 3 ml Documented by: Aspirin (Aspirin 81 Mg Chew) 81 mg NG DAILY DENISSE Stop: 07/13/21 16:14 Last Admin: 06/18/21 07:34 Dose: 81 mg Documented by: Atorvastatin Calcium (Atorvastatin 40 Mg Tab) 80 mg PO HS DENISSE Stop: 07/12/21 20:59 Last Admin: 06/17/21 20:46 Dose: 80 mg Documented by: Budesonide (Budesonide 0.5 Mg/2 Ml Vial (Pulmicort)) 0.5 mg NEB BIDR DENISSE Stop: 07/13/21 18:59 Last Admin: 06/18/21 07:28 Dose: Not Given Documented by: Clopidogrel Bisulfate (Clopidogrel Bisulfate 75 Mg Tab) 75 mg PO QAM DENISSE Stop: 07/13/21 16:14 Last Admin: 06/18/21 07:34 Dose: 75 mg Documented by: Enteral Nutritional Formula (Peptamen 1.5 Armando 1,000 Ml Bag) 1,000 ml GT UD DENISSE; Protocol Stop: 07/15/21 13:29 Last Admin: 06/18/21 08:56 Dose: 1,000 ml Documented by: Epinephrine HCl (Epinephrine Inj 1 Mg/Ml Amp) 0.3 mg IM UD PRN PRN Reason: Allergic Reaction Stop: 07/12/21 05:16 Ferrous Sulfate (Ferrous Sulfate 325 Mg/7.4 Ml Udp) 325 mg PO BIDM DENISSE Stop: 07/15/21 16:59 Last Admin: 06/18/21 07:32 Dose: 325 mg Documented by: Fluticasone Propionate (Fluticasone Propionate Na Spr 16 Gm Btl) 2 sprays NA DAILY DENISSE Stop: 07/12/21 08:59 Last Admin: 06/18/21 07:34 Dose: 2 sprays Documented by: Formoterol Fumarate (Formoterol 20 Mcg/2 Ml Vial) 20 mcg NEB BIDR DENISSE Stop: 07/13/21 10:29 Last Admin: 06/18/21 07:27 Dose: 20 mcg Documented by: Gabapentin (Gabapentin 250 Mg/5 Ml 470 Ml Btl) 900 mg PO TID [facility] Stop: 07/15/21 13:59 Last Admin: 06/18/21 07:39 Dose: 900 mg Documented by: Phenytoin 100 mg/ Syringe 2 mls @ 1 mls/min IV TID DENISSE Stop: 07/12/21 08:59 Last Admin: 06/18/21 07:40 Dose: 1 mls/min Documented by: Furosemide 40 mg/ Syringe 4 mls @ 4 mls/min IV BID17 DENISSE Stop: 07/12/21 08:59 Last Admin: 06/17/21 16:26 Dose: 4 mls/min Documented by: Levetiracetam 1,000 mg/ Sodium (Chloride) 110 mls @ 440 mls/hr IV BID [facility] Stop: 07/13/21 08:59 Last Admin: 06/18/21 07:36 Dose: Not Given Documented by: Pantoprazole Sodium 40 mg/ (Syringe) 10 mls @ 5 mls/min IV BID@0900,2100 [facility] Stop: 07/14/21 20:59 Last Admin: 06/18/21 07:36 Dose: 5 mls/min Documented by: Ampicillin Sodium/Sulbactam Sodium 1,500 mg/ Sodium Chloride 104 mls @ 200 mls/hr IV Q6H [facility]; Protocol Stop: 06/21/21 19:59 Last Infusion: 06/18/21 08:16 Dose: Infused Documented by: Propofol (Diprivan) 1,000 mg in 100 mls @ 0 mls/hr IV .Q0M [facility]; Protocol Stop: 06/18/21 19:14 Last Admin: 06/16/21 20:41 Dose: Not Given Documented by: Heparin Sodium/Dextrose (Heparin Sodium/Dextrose) 25,000 units in 500 mls @ 14 mls/hr IV .Q24H [facility]; Protocol Stop: 07/17/21 01:44 Last Titration: 06/18/21 07:03 Dose: 700 units/hr, 14 mls/hr Documented by: Thiamine HCl 100 mg/ Syringe 10 mls @ 2 mls/min IV BID DENISSE Stop: 07/17/21 20:59 Last Admin: 06/18/21 07:38 Dose: 2 mls/min Documented by: Insulin Aspart (Insulin Aspart 100 Units/Ml 3 Ml Pen) 0 units SC Q6 [facility] Stop: 07/13/21 11:59 Last Admin: 06/18/21 05:40 Dose: 1 units Documented by: Isosorbide Dinitrate (Isosorbide Dinitrate 5 Mg Tab) 5 mg PO Q3H PRN PRN Reason: chest pain Stop: 07/12/21 04:37 Isosorbide Mononitrate (Isosorbide [place] Extended Rel 60 Mg Tabcr) 120 mg PO BID DENISSE Stop: 07/12/21 08:59 Last Admin: 06/12/21 08:32 Dose: Not Given Documented by: Levetiracetam (Levetiracetam Oral Soln 100mg/Ml) 1,000 mg PO BID [facility] Stop: 07/17/21 20:59 Last Admin: 06/18/21 07:33 Dose: 1,000 mg Documented by: Lisinopril (Lisinopril 2.5 Mg Tab) 2.5 mg PO DAILY [facility] Stop: 07/14/21 08:59 Last Admin: 06/18/21 07:35 Dose: 2.5 mg Documented by: Loratadine (Loratadine 10 Mg Tab) 10 mg PO DAILY [facility] Stop: 07/12/21 08:59 Last Admin: 06/18/21 07:39 Dose: 10 mg Documented by: Metoprolol Tartrate (Metoprolol Tartrate 25 Mg Tab) 12.5 mg PO TID [facility] Stop: 07/17/21 13:59 Last Admin: 06/18/21 07:39 Dose: 12.5 mg Documented by: Miscellaneous (Icu Electrolyte Replacement Protocol) 1 ea N/A BID@ [facility]; Protocol Stop: 06/19/21 17:59 Last Admin: 06/18/21 05:33 Dose: Not Given Documented by: Nitroglycerin (Nitroglycerin 2% Ointment 30gm Tube) 0.5 inch EXT Q6H [facility] Stop: 07/14/21 11:14 Last Admin: 06/18/21 05:31 Dose: 0.5 inch Documented by: Oxycodone HCl (Oxycodone Hcl Soln 5 Mg/5 Ml Udc) 5 mg PO Q4H PRN PRN Reason: Pain Stop: 07/01/21 18:22 Last Admin: 06/18/21 08:04 Dose: 5 mg Documented by: Potassium Chloride (Potassium Chloride 20 Meq/15 Ml Udc) 40 meq PO DAILY [facility] Stop: 07/16/21 08:59 Last Admin: 06/18/21 07:38 Dose: 40 meq Documented by: Prazosin HCl (Prazosin Hcl 1 Mg Cap) 1 mg PO BID [facility] Stop: 07/12/21 08:59 Last Admin: 06/18/21 07:38 Dose: 1 mg Documented by: Primidone (Primidone 50 Mg Tab) 50 mg PO TID [facility] Stop: 07/12/21 08:59 Last Admin: 06/18/21 07:41 Dose: 50 mg Documented by: Propofol (Propofol Bolus From Bag) 20 mg IV Q5M PRN PRN Reason: Sedation Stop: 06/18/21 19:01 Sodium Chloride (Sodium Chloride 0.9% 10ml Flush) 20 ml IV TID [facility] Stop: 07/12/21 08:59 Last Admin: 06/18/21 07:41 Dose: 20 ml Documented by: Sterile Water (Tube Feeding Water Flush) 60 ml GT Q4H [facility] Stop: 07/15/21 13:29 Last Admin: 06/18/21 05:31 Dose: 60 ml Documented by: (1) Respiratory failure with hypoxia and hypercapnia Chronicity: acute on chronic Qualified Code(s): J96.21 - Acute and chronic respiratory failure with hypoxia; J96.22 - Acute and chronic respiratory failure with hypercapnia
[2021-06-18 09:11] LABS: Hematocrit (blood only) 30.6 % (37-47); Mean Corpuscular Volume 91.9 fL (80-100); RDW Coefficient of Variation 20.8 % (11.5-14.5); RDW Standard Deviation 69.4 fL (36.4-46.3); Red Blood Count 3.33 M/uL (4.2-5.4); White Blood Count 9.22 K/uL (4.8-10.8)
[2021-06-18 09:18] LABS: Partial Thromboplastin Ratio 1.4; Partial Thromboplastin Time 36.2 Seconds (21.0-31.0)
[2021-06-18] MEDS: HEPARIN SODIUM/DEXTROSE 25,000 UNITS/500 ML BAG IV SCH ×2 (09:18→19:11)
[2021-06-18 09:19] LABS: Mean Platelet Volume 11.2 fL (7.4-10.4); Platelet Count 124 K/uL (130-400)
[2021-06-18 09:28] LABS: BUN Creatinine Ratio 29.5 (10-20); Calcium 7.7 mg/dl (8.5-10.1); Creatinine Clr Calc Pharmacy 100.5 ml/min; Est GFR (African American) 130.8 ml/min; Est GFR (Non-African American) 112.8 ml/min; Magnesium 2.2 mg/dl (1.8-2.4); Potassium 4.2 mmol/L (3.5-5.1)
[2021-06-18 09:36] LABS: Albumin Globulin Ratio 0.6 (0.9-2); Bilirubin,Total 0.7 mg/dl (0.2-1); Globulin 3.3 gm/dl (2.5-4.0); Phosphorus 1.8 mg/dl (2.5-4.9); Total Protein 5.3 gm/dl (6.4-8.2)
[2021-06-18] MEDS ORDERED: POTASSIUM CHLORIDE CRTAB 20 MEQ TABCR PO STA (09:42)
--- NOTE | 2021-06-18 09:44 | Billing Data ---
Date of Service June 18, 2021 Coding Level of Care Code 03232 Subseq Hosp Care Lvl 3
[2021-06-18] MEDS ORDERED: BUDESONIDE 90 MCG INH INH SCH (09:45)
[2021-06-18] MEDS ORDERED: HEPARIN IV BOLUS 2,000 UNITS in SYRINGE 0 ML IV ONE (10:00)
[2021-06-18 10:02] LABS: Anisocytosis Present; Eosinophils % (auto) 1.1 %; Immature Granulocytes # (auto) 0.03 K/uL (0.00-0.02); Immature Granulocytes % (auto) 0.3 %; Lymphocytes # (auto) 0.91 K/uL (1.2-3.4); Lymphocytes % (auto) 9.9 %; Monocytes % (auto) 9.8 %; Neutrophils # (auto) 7.28 K/uL (1.4-6.5); Neutrophils % (auto) 78.9 %; Target Cells 1+
[2021-06-18] MEDS: FUROSEMIDE 40 MG in SYRINGE 0 ML IV SCH (11:06)
[2021-06-18] MEDS: UMECLIDINIUM/VILANTEROL 62.5/25MCG 7 PUFFS/INHALER INH SCH (11:15)
[2021-06-18] MEDS: FLUTICASONE FUROATE 100MCG 14 PUFFS/INHALER INH SCH (11:15)
[2021-06-18] MEDS: CHLOROTHIAZIDE SODIUM 500 MG in DEXTROSE 5% 50 ML IV SCH ×2 (11:15→20:18)
[2021-06-18] MEDS: POTASSIUM CHLORIDE 20 MEQ/15 ML UDC PO STA ×2 (11:52→13:41)
[2021-06-18] MEDS ORDERED: WARFARIN SOD 5 MG TAB PO ONE (16:00)
[2021-06-18 16:26] LABS: Partial Thromboplastin Ratio 1.6; Partial Thromboplastin Time 41.9 Seconds (21.0-31.0)
[2021-06-18] MEDS: ALBUT/IPRATROP 3MG/0.5MG NEB 3 ML VIAL NEB PRN (19:39)
[2021-06-18] MEDS: ATORVASTATIN 40 MG TAB PO SCH (20:23)
[2021-06-18 23:18] LABS: Partial Thromboplastin Ratio 1.6; Partial Thromboplastin Time 41.9 Seconds (21.0-31.0)
[2021-06-19] MEDS: TUBE FEEDING WATER FLUSH GT SCH ×6 (01:35→20:03)
[2021-06-19] MEDS: AMPICILLIN/SULBACTAM SOD 1,500 MG in 0.9 % SODIUM CHLORIDE 100 ML IV SCH ×4 (01:35→19:51)
[2021-06-19] MEDS: ICU ELECTROLYTE REPLACEMENT PROTOCOL SCH (02:31)
[2021-06-19] MEDS: NITROGLYCERIN 2% OINTMENT 30GM TUBE EXT SCH ×3 (04:01→17:16)
[2021-06-19] MEDS: oxyCODONE HCL SOLN 5 MG/5 ML UDC PO PRN ×4 (04:01→19:51)
[2021-06-19] MEDS: INSULIN ASPART 100 UNITS/ML 3 ML PEN SC SCH ×3 (05:40→18:11)
[2021-06-19] MEDS: ALBUT/IPRATROP 3MG/0.5MG NEB 3 ML VIAL NEB PRN (05:45)
[2021-06-19 05:54] LABS: Basophils # (auto) 0.01 K/uL (0-0.2); Basophils % (auto) 0.1 %; Eosinophils # (auto) 0.18 K/uL (0-0.5); Eosinophils % (auto) 1.7 %; Hematocrit (blood only) 31.7 % (37-47); Hemoglobin 9.3 g/dL (12.0-16.0); Immature Granulocytes # (auto) 0.06 K/uL (0.00-0.02); Immature Granulocytes % (auto) 0.6 %; Lymphocytes # (auto) 1.03 K/uL (1.2-3.4); Lymphocytes % (auto) 9.7 %; Mean Corpuscular Hemoglobin 26.9 pg (25-34); Mean Corpuscular Hgb Conc 29.3 g/dL (32-36); Mean Corpuscular Volume 91.6 fL (80-100); Mean Platelet Volume 11.2 fL (7.4-10.4); Monocytes # (auto) 1.09 K/uL (0.11-0.59); Monocytes % (auto) 10.2 %; Neutrophils % (auto) 77.7 %; Platelet Count 161 K/uL (130-400); RDW Coefficient of Variation 20.7 % (11.5-14.5); RDW Standard Deviation 69.1 fL (36.4-46.3); Red Blood Count 3.46 M/uL (4.2-5.4); White Blood Count 10.67 K/uL (4.8-10.8)
[2021-06-19 06:02] LABS: INR 1.2 (0.9-1.1); Partial Thromboplastin Ratio 1.3; Partial Thromboplastin Time 34.3 Seconds (21.0-31.0); Prothrombin Time 11.7 Seconds (9.0-12.0)
[2021-06-19] MEDS ORDERED: HEPARIN SOD (PORCINE) 1000 UNIT/ML IV ONE (06:10)
[2021-06-19 06:28] LABS: Magnesium 2.4 mg/dl (1.8-2.4); Phosphorus 2.6 mg/dl (2.5-4.9)
[2021-06-19 06:33] LABS: Anisocytosis Present; Hypochromasia Present
[2021-06-19] MEDS: FLUTICASONE FUROATE 100MCG 14 PUFFS/INHALER INH SCH (08:41)
[2021-06-19] MEDS: FERROUS SULFATE 325 MG/7.4 ML UDP PO SCH ×2 (08:42→17:16)
[2021-06-19] MEDS: LORATADINE 10 MG TAB PO SCH (08:42)
[2021-06-19] MEDS: POTASSIUM CHLORIDE 20 MEQ/15 ML UDC PO SCH (08:42)
[2021-06-19] MEDS: METOPROLOL TARTRATE 25 MG TAB PO SCH ×4 (08:42→19:59)
[2021-06-19] MEDS: lisinopril 2.5 MG TAB PO SCH (08:42)
[2021-06-19] MEDS: PRAZOSIN HCL 1 MG CAP PO SCH ×2 (08:42→20:02)
[2021-06-19] MEDS: levETIRAcetam ORAL SOLN 100MG/ML PO SCH ×2 (08:42→19:59)
[2021-06-19] MEDS: SODIUM CHLORIDE 0.9% 10ML FLUSH IV SCH ×3 (08:43→19:50)
[2021-06-19] MEDS: ASPIRIN 81 MG CHEW NG SCH (08:43)
[2021-06-19] MEDS: CLOPIDOGREL BISULFATE 75 MG TAB PO SCH (08:43)
[2021-06-19] MEDS: FLUTICASONE PROPIONATE NA SPR 16 GM BTL SCH (08:43)
[2021-06-19] MEDS: PRIMIDONE 50 MG TAB PO SCH ×3 (08:45→20:02)
[2021-06-19] MEDS: UMECLIDINIUM/VILANTEROL 62.5/25MCG 7 PUFFS/INHALER INH SCH (08:45)
[2021-06-19] MEDS: THIAMINE HCL 100 MG in SYRINGE 9 ML IV SCH ×2 (08:46→20:01)
[2021-06-19] MEDS: PANTOprazole 40 MG in SYRINGE 0 ML IV SCH ×2 (08:46→20:01)
[2021-06-19] MEDS: PHENYTOIN 100 MG in SYRINGE 0 ML IV SCH ×3 (08:47→20:00)
--- NOTE | 2021-06-19 09:10 | Cardiology Progress Note ---
Date of Service June 19, 2021 Assessment & Plan (1) Respiratory failure with hypoxia and hypercapnia: (2) Non-ST elevation ND (NSTEMI): (3) ACS (acute coronary syndrome): (4) GI bleed: (5) DVT (deep venous thrombosis): Plan: Patient is an extremely complex 55-year-old female with recent clinical course notable for presentation with syncope and profound anemia. She presents this admission in acute respiratory distress and congestive heart failure secondary to myocardial ischemia. Recent history of GI bleed Patient underwent emergent cardiac catheterization study demonstrating right coronary occlusion and high-grade proximal LAD stenosis successfully intervened on with drug-eluting stent. LV systolic function severely impaired on follow-up echocardiogram. Patient's history is notable for vasospastic angina, chronic coronary artery disease and significant peripheral vascular disease in addition to above issues The patient was started on heparin yesterday for the DVT. From a cardiac standpoint she is otherwise stable. Agree with transitioning over to warfarin. The patient should also remain on Plavix and aspirin for a month after her stent at which time the aspirin can be discontinued. The patient will then remain on warfarin and Plavix. Admission and Anticipated Discharge Date Admission Date: June 12, 2021 Subjective Patient is alert. Communicating by writing on a piece of paper. No complaints today. Review of Systems Review of Systems: Not obtainable Physical Exam Physical Exam: General: no acute distress and stated age Head: normocephalic, no masses, lesions, tenderness or abnormalities Eyes: conjunctiva are pink and non-injected, sclera clear Neck: Tracheostomy Chest: normal shape and normal respiratory effort Lungs: clear to auscultation and percussion Cardiac Exam: - regular rate & rhythm, no murmurs gallops or rubs - normal S1, normal S2 Pulses: 2(+) throughout Abdomen: abdomen soft, non-tender, no abnormal masses and no hepatosplenomegaly Musculoskeletal: no gait disturbance, no joint inflammation, no deforming arthritis Extremities: no edema and no cyanosis Neuro: grossly normal exam Results & Data ([facility]) Vital Signs (Past 12 Hours) Vital Signs Temp Pulse Pulse Resp BP BP Pulse Ox 06/19/21 07:15 37.5 C 93 H 24 156/87 H 91 06/19/21 05:44 88 22 95 06/19/21 03:45 37.4 C 87 28 H 131/72 95 06/19/21 00:00 37.4 C 83 28 H 122/60 91 Laboratory Results Laboratory Results - last 24 hr 06/18/21 06/18/21 06/18/21 08:36 08:36 08:36 WBC 9.22 RBC 3.33 L Hgb 9.0 L Hct 30.6 L MCV 91.9 MCH 27.0 MCHC RDW Std Deviation 69.4 H RDW Coeff of Lola 20.8 H Plt Count 124 L MPV 11.2 H Immature Gran % (Auto) 0.3 Neut % (Auto) 78.9 Lymph % (Auto) 9.9 [place] % (Auto) 9.8 Eos % (Auto) 1.1 Baso % (Auto) 0.0 Neut # (Auto) 7.28 H Lymph # (Auto) 0.91 L [place] # (Auto) 0.90 H Eos # (Auto) 0.10 Baso # (Auto) 0.00 Immature Gran # (Auto) 0.03 H Hypochromasia Anisocytosis Present Target Cells 1+ PT INR APTT 36.2 H PTT Ratio 1.4 Sodium 148 H Potassium 4.2 D Chloride 117 H Carbon Dioxide 27 Anion Gap 5.0 BUN 13 Creatinine 0.44 L Est Cr Clr Drug Dosing 100.5 Est GFR ( Amer) 130.8 Est GFR (Non-Af Amer) 112.8 BUN/Creatinine Ratio 29.5 H Glucose 155 H POC Glucose Calcium 7.7 L Phosphorus 1.8 L Magnesium 2.2 Total Bilirubin 0.7 AST 454 H ALT 1740 H Alkaline Phosphatase 173 H Total Protein 5.3 L Albumin 2.0 L Globulin 3.3 Albumin/Globulin Ratio 0.6 L 06/18/21 06/18/21 06/18/21 11:31 15:21 18:07 WBC RBC Hgb Hct MCV MCH MCHC RDW Std Deviation RDW Coeff of Lola Plt Count MPV Immature Gran % (Auto) Neut % (Auto) Lymph % (Auto) [place] % (Auto) Eos % (Auto) Baso % (Auto) Neut # (Auto) Lymph # (Auto) [place] # (Auto) Eos # (Auto) Baso # (Auto) Immature Gran # (Auto) Hypochromasia Anisocytosis Target Cells PT INR APTT 41.9 H PTT Ratio 1.6 Sodium Potassium Chloride Carbon Dioxide Anion Gap BUN Creatinine Est Cr Clr Drug Dosing Est GFR ( Amer) Est GFR (Non-Af Amer) BUN/Creatinine Ratio Glucose POC Glucose 147 H 125 H Calcium Phosphorus Magnesium Total Bilirubin AST ALT Alkaline Phosphatase Total Protein Albumin Globulin Albumin/Globulin Ratio 06/18/21 06/18/21 06/19/21 22:50 23:40 05:28 WBC RBC Hgb Hct MCV MCH MCHC RDW Std Deviation RDW Coeff of Lola Plt Count MPV Immature Gran % (Auto) Neut % (Auto) Lymph % (Auto) [place] % (Auto) Eos % (Auto) Baso % (Auto) Neut # (Auto) Lymph # (Auto) [place] # (Auto) Eos # (Auto) Baso # (Auto) Immature Gran # (Auto) Hypochromasia Anisocytosis Target Cells PT INR APTT 41.9 H PTT Ratio 1.6 Sodium Potassium Chloride Carbon Dioxide Anion Gap BUN Creatinine Est Cr Clr Drug Dosing Est GFR ( Amer) Est GFR (Non-Af Amer) BUN/Creatinine Ratio Glucose POC Glucose 175 H 164 H Calcium Phosphorus Magnesium Total Bilirubin AST ALT Alkaline Phosphatase Total Protein Albumin Globulin Albumin/Globulin Ratio 06/19/21 06/19/21 06/19/21 05:36 05:36 05:36 WBC 10.67 RBC 3.46 L Hgb 9.3 L Hct 31.7 L MCV 91.6 MCH 26.9 MCHC 29.3 L RDW Std Deviation 69.1 H RDW Coeff of Lola 20.7 H Plt Count 161 MPV 11.2 H Immature Gran % (Auto) 0.6 Neut % (Auto) 77.7 Lymph % (Auto) 9.7 [place] % (Auto) 10.2 Eos % (Auto) 1.7 Baso % (Auto) 0.1 Neut # (Auto) 8.30 H Lymph # (Auto) 1.03 L [place] # (Auto) 1.09 H Eos # (Auto) 0.18 Baso # (Auto) 0.01 Immature Gran # (Auto) 0.06 H Hypochromasia Present Anisocytosis Present Target Cells PT 11.7 INR 1.2 H APTT 34.3 H PTT Ratio 1.3 Sodium Potassium Chloride Carbon Dioxide Anion Gap BUN Creatinine Est Cr Clr Drug Dosing Est GFR ( Amer) Est GFR (Non-Af Amer) BUN/Creatinine Ratio Glucose POC Glucose Calcium Phosphorus 2.6 Magnesium 2.4 Total Bilirubin AST ALT Alkaline Phosphatase Total Protein Albumin Globulin Albumin/Globulin Ratio Medications Administered Current Inpatient Medications Albuterol (Albut/Ipratrop 3mg/0.5mg Neb 3 Ml Vial) 3 ml NEB Q4R PRN PRN Reason: Wheezing Stop: 07/13/21 10:59 Last Admin: 06/19/21 05:45 Dose: 3 ml Documented by: Aspirin (Aspirin 81 Mg Chew) 81 mg NG DAILY DENISSE Stop: 07/13/21 16:14 Last Admin: 06/19/21 08:43 Dose: 81 mg Documented by: Atorvastatin Calcium (Atorvastatin 40 Mg Tab) 80 mg PO HS DENISSE Stop: 07/12/21 20:59 Last Admin: 06/18/21 20:23 Dose: 80 mg Documented by: Clopidogrel Bisulfate (Clopidogrel Bisulfate 75 Mg Tab) 75 mg PO QAM DENISSE Stop: 07/13/21 16:14 Last Admin: 06/19/21 08:43 Dose: 75 mg Documented by: Enteral Nutritional Formula (Peptamen 1.5 Armando 1,000 Ml Bag) 1,000 ml GT UD DENISSE; Protocol Stop: 07/15/21 13:29 Last Admin: 06/18/21 08:56 Dose: 1,000 ml Documented by: Epinephrine HCl (Epinephrine Inj 1 Mg/Ml Amp) 0.3 mg IM UD PRN PRN Reason: Allergic Reaction Stop: 07/12/21 05:16 Ferrous Sulfate (Ferrous Sulfate 325 Mg/7.4 Ml Udp) 325 mg PO BIDM DENISSE Stop: 07/15/21 16:59 Last Admin: 06/19/21 08:42 Dose: 325 mg Documented by: Fluticasone Furoate (Fluticasone Furoate 100mcg 14 Puffs/Inhaler) 1 puffs INH DAILY DENISSE Stop: 07/18/21 09:59 Last Admin: 06/19/21 08:41 Dose: 1 puffs Documented by: Fluticasone Propionate (Fluticasone Propionate Na Spr 16 Gm Btl) 2 sprays NA DAILY DENISSE Stop: 07/12/21 08:59 Last Admin: 06/19/21 08:43 Dose: 2 sprays Documented by: Gabapentin (Gabapentin 250 Mg/5 Ml 470 Ml Btl) 900 mg PO TID DENISSE Stop: 07/15/21 13:59 Last Admin: 06/18/21 20:19 Dose: 900 mg Documented by: Phenytoin 100 mg/ Syringe 2 mls @ 1 mls/min IV TID [facility] Stop: 07/12/21 08:59 Last Admin: 06/19/21 08:47 Dose: 1 mls/min Documented by: Pantoprazole Sodium 40 mg/ (Syringe) 10 mls @ 5 mls/min IV BID@0900,2100 [facility] Stop: 07/14/21 20:59 Last Admin: 06/19/21 08:46 Dose: 5 mls/min Documented by: Ampicillin Sodium/Sulbactam Sodium 1,500 mg/ Sodium Chloride 104 mls @ 200 mls/hr IV Q6H [facility]; Protocol Stop: 06/21/21 19:59 Last Admin: 06/19/21 08:39 Dose: 200 mls/hr Documented by: Heparin Sodium/Dextrose (Heparin Sodium/Dextrose) 25,000 units in 500 mls @ 20 mls/hr IV .Q24H [facility]; Protocol Stop: 07/17/21 01:44 Last Titration: 06/19/21 06:06 Dose: 1,000 units/hr, 20 mls/hr Documented by: Thiamine HCl 100 mg/ Syringe 10 mls @ 2 mls/min IV BID [facility] Stop: 07/17/21 20:59 Last Admin: 06/19/21 08:46 Dose: 2 mls/min Documented by: Insulin Aspart (Insulin Aspart 100 Units/Ml 3 Ml Pen) 0 units SC Q6 [facility] Stop: 07/13/21 11:59 Last Admin: 06/19/21 05:40 Dose: 1 units Documented by: Isosorbide Dinitrate (Isosorbide Dinitrate 5 Mg Tab) 5 mg PO Q3H PRN PRN Reason: chest pain Stop: 07/12/21 04:37 Isosorbide Mononitrate (Isosorbide [place] Extended Rel 60 Mg Tabcr) 120 mg PO BID [facility] Stop: 07/12/21 08:59 Last Admin: 06/12/21 08:32 Dose: Not Given Documented by: Levetiracetam (Levetiracetam Oral Soln 100mg/Ml) 1,000 mg PO BID [facility] Stop: 07/17/21 20:59 Last Admin: 06/19/21 08:42 Dose: 1,000 mg Documented by: Lisinopril (Lisinopril 2.5 Mg Tab) 2.5 mg PO DAILY [facility] Stop: 07/14/21 08:59 Last Admin: 06/19/21 08:42 Dose: 2.5 mg Documented by: Loratadine (Loratadine 10 Mg Tab) 10 mg PO DAILY DENISSE Stop: 07/12/21 08:59 Last Admin: 06/19/21 08:42 Dose: 10 mg Documented by: Metoprolol Tartrate (Metoprolol Tartrate 25 Mg Tab) 12.5 mg PO TID [facility] Stop: 07/17/21 13:59 Last Admin: 06/19/21 08:42 Dose: 12.5 mg Documented by: Miscellaneous (Icu Electrolyte Replacement Protocol) 1 ea N/A BID@ [facility]; Protocol Stop: 06/19/21 17:59 Last Admin: 06/19/21 02:31 Dose: Not Given Documented by: Nitroglycerin (Nitroglycerin 2% Ointment 30gm Tube) 0.5 inch EXT Q6H [facility] Stop: 07/14/21 11:14 Last Admin: 06/19/21 04:01 Dose: 0.5 inch Documented by: Oxycodone HCl (Oxycodone Hcl Soln 5 Mg/5 Ml Udc) 5 mg PO Q4H PRN PRN Reason: Pain Stop: 07/01/21 18:22 Last Admin: 06/19/21 08:39 Dose: 5 mg Documented by: Potassium Chloride (Potassium Chloride 20 Meq/15 Ml Udc) 40 meq PO DAILY [facility] Stop: 07/16/21 08:59 Last Admin: 06/19/21 08:42 Dose: 40 meq Documented by: Prazosin HCl (Prazosin Hcl 1 Mg Cap) 1 mg PO BID [facility] Stop: 07/12/21 08:59 Last Admin: 06/19/21 08:42 Dose: 1 mg Documented by: Primidone (Primidone 50 Mg Tab) 50 mg PO TID [facility] Stop: 07/12/21 08:59 Last Admin: 06/19/21 08:45 Dose: 50 mg Documented by: Sodium Chloride (Sodium Chloride 0.9% 10ml Flush) 20 ml IV TID [facility] Stop: 07/12/21 08:59 Last Admin: 06/19/21 08:43 Dose: 20 ml Documented by: Sterile Water (Tube Feeding Water Flush) 60 ml GT Q4H [facility]ISSE Stop: 07/15/21 13:29 Last Admin: 06/19/21 08:45 Dose: 60 ml Documented by: Umeclidinium/Vilanterol (Umeclidinium/Vilanterol 62.5/25mcg 7 Puffs/Inhaler) 1 puffs INH DAILY [facility] Stop: 07/18/21 10:14 Last Admin: 06/19/21 08:45 Dose: 1 puffs Documented by: (1) Respiratory failure with hypoxia and hypercapnia Chronicity: acute on chronic Qualified Code(s): J96.21 - Acute and chronic respiratory failure with hypoxia; J96.22 - Acute and chronic respiratory failure with hypercapnia
--- NOTE | 2021-06-19 09:42 | Communication Note ---
Date of Service: June 19, 2021 Patient has been tolerating aerosol trach collar Would agree with Passy-Vikram valve placement for speaking Patient has definitive airway: plan to undergo gastrostomy tube placement in the near future Would hold decannulation until after PEG placement for definitive airway if needed during procedure Will downsize trach 7 days postoperative versus decannulation: Postop day 3 Coding Level of Care Code Established Pt None Patient Type Established Medical Decision Making Straight Forward
--- NOTE | 2021-06-19 10:01 | Gastroenterology Progress Note ---
Date of Service June 19, 2021 Assessment & Plan (1) ACS (acute coronary syndrome): (2) Non-ST elevation MS (NSTEMI): (3) Respiratory failure with hypoxia and hypercapnia: (4) DVT (deep venous thrombosis): (5) Dysphagia: Plan: Pt is a 55 y/o w complex medical hx including recent NSTEMI, ACS s/p ROSE placement on 06/12 on dual antiplatelet agents (ASA, Plavix), developed respiratory failure required intubation -> tracheostomy placement, RUE DVT currently on Heparin, hx of melena. She failed swallow evaluation w severe dysphagia and at high risk for aspiration. PEG placement had been requested. She currently is NPO w NGT feeding. - NPO - Discussed case with Dr. Waddell who is agreeable to perform endoscopically placed PEG tube while pt is on antiplatelet therapy. Please Hold Heparin at least 6 hours prior to EGD procedure, avoid Warfarin use. We will obtain anesthesia consult as well to eval her anesthesia risks. If cleared by anesthesia, tenatively will plan for PEG tube placement on 06/21/21. Admission and Anticipated Discharge Date Admission Date: June 12, 2021 Supervising Physician Co-Signing Physician Notes The patient is one week out from rose after presenting with chest pain and found to have nstemi s/p rose to lad on 06/12/21 on plavix, asa. S/p trach on 06/16. DVT in rue on heparin gtt. Recevied one dose of coumadin on 06/18/21. PE - trach'd, abd soft Failed recent speech and swallow evaluation and eventual plan to discharge to ltach. Agree with further plan of care as per Guadalupe's assessment and plan. Subjective Recall that pt is a 55 y/o female admitted with NSTEMI, ACS s/p ROSE placement on 06/12, developed respiratory failure required intubation -> tracheostomy placement, RUE DVT currently on Heparin, Plavix and ASA. GI previously consulted for melena. Endoscopic evals had been deferred given recent ROSE placement and stable blood ct w/o further s/s sang melena. We are asked to eval pt again for possible PEG placement. Pt had Speech Therapy evaluation, deemed high risk for aspiration. She currently has feeding through NGT. Due to physical deconditioning, anticipate discharge to LTACH. Review of Systems Review of Systems: All systems reviewed & are unremarkable except as noted in HPI & below Physical Exam Constitutional: well groomed, cooperative and comfortable Thin, frail appearing female Eyes: PERRL, conjunctivae normal, anicteric sclerae ENMT: external ear and nose normal, oropharynx normal Respiratory: On trach collar; coarse lung sounds Cardiovascular: RRR, no murmur, no edema Gastrointestinal (Abdomen): Soft, non tender, BS hypoactibe Skin: no rashes, warm and dry no jaundice Neurologic: Motor/Sensory: + asterixis Psychiatric: Alert, flat affect; difficulty voicing due to trach in place Lymphatic: no lymphedema Results & Data ([facility]) Vital Signs (Past 12 Hours) Vital Signs Temp Pulse Pulse Resp BP BP Pulse Ox 06/19/21 07:15 37.5 C 93 H 24 156/87 H 91 06/19/21 05:44 88 22 95 06/19/21 03:45 37.4 C 87 28 H 131/72 95 06/19/21 00:00 37.4 C 83 28 H 122/60 91 (1) Respiratory failure with hypoxia and hypercapnia Chronicity: acute on chronic Qualified Code(s): J96.21 - Acute and chronic respiratory failure with hypoxia; J96.22 - Acute and chronic respiratory failure with hypercapnia
[2021-06-19] MEDS: GABAPENTIN 250 MG/5 ML 470 ML BTL PO SCH ×3 (10:09→19:53)
[2021-06-19 12:17] LABS: Partial Thromboplastin Ratio 1.6; Partial Thromboplastin Time 41.3 Seconds (21.0-31.0)
[2021-06-19] MEDS: PEPTAMEN 1.5 CAL 1,000 ML BAG GT SCH (12:20)
--- NOTE | 2021-06-19 15:13 | Anesthesiology Consultation ---
Date of Service June 19, 2021 Assessment & Plan Chart Review Chart Review: Acceptable Risk for Surgery and Patient NOT seen in Pre Admission Testing ASA ASA2 Proposed Anesthesia Anesthesia Type: General Risk / Benefits Reviewed With: PT / POA / Parent / Guardian, Accepts Plan and Informed Consent Obtained History Surgery Operation Date: 06/12/21 01:30 Proposed Procedures p Cardiac Heart Alert - Carlos Enrique Hinojosa MD Height/Weight Height: 5 ft 5 in Weight: 45.3 kg Allergies Allergy/AdvReac Type Severity Reaction Status Date / Time bee venom protein (honey bee) Allergy Severe Anaphylaxis Verified 06/12/21 00:03 -HIVES Influenza Virus Vaccines Allergy Severe EDEMA Verified 06/13/21 09:54 AIRWAY latex Allergy Intermediate HIVES, Verified 06/12/21 00:03 BLISTERS scopolamine Allergy Unknown Unknown Verified 06/12/21 00:03 azithromycin [From Zithromax] AdvReac Severe STOMACH Verified 06/12/21 00:03 ULCERS, BLEEDING, ARRYTHMIAS dexbrompheniramine AdvReac Severe CARDIAC Verified 06/12/21 00:03 SPASMS--ALL ANTIHISTAMINES pseudoephedrine AdvReac Severe CARDIAC Verified 06/12/21 00:03 SPASMS--ALL ANTIHISTAMINES levofloxacin AdvReac Intermediate QTC Verified 06/12/21 00:03 PROLONGATION H/O VF ARREST meperidine AdvReac Intermediate NAUSEA, Verified 06/12/21 00:03 VOMITING methadone AdvReac Intermediate NAUSEA, Verified 06/12/21 00:03 VOMITING, RASH diphenhydramine AdvReac Mild "ARTERITAL Verified 06/12/21 00:03 SPASMS" COLD AdvReac Unknown VASCULAR Uncoded 06/12/21 00:03 COLLAPSE SYNDROME Medications Home Medications Medication Instructions Recorded Confirmed Last Taken albuterol sulfate 90 mcg/actuation 2 puff INHALATION Q4 PRN 05/15/21 06/12/21 Unknown aerosol inhaler aspirin 81 mg tablet,delayed 81 mg PO DAILY 05/15/21 06/12/21 05/15/21 release atorvastatin 80 mg tablet 80 mg PO HS 05/15/21 06/12/21 05/15/21 diltiazem HCl 240 mg capsule,24 480 mg PO DAILY 05/15/21 06/12/21 05/15/21 hr,extended release epinephrine 0.3 mg/0.3 mL 0.3 mg IM UD PRN 05/15/21 06/12/21 Unknown injection, auto-injector (EpiPen) fluticasone propionate 50 2 spray INTRANASAL DAILY 05/15/21 06/12/21 05/15/21 mcg/actuation nasal spray,suspension furosemide 20 mg tablet 20 mg PO DAILY 05/15/21 06/12/21 05/15/21 gabapentin 600 mg tablet 600 mg PO TID 05/15/21 06/12/21 05/15/21 isosorbide dinitrate 5 mg tablet 5 mg PO DIRECTED PRN 05/15/21 06/12/21 Unknown isosorbide mononitrate 120 mg 120 mg PO AMPM 05/15/21 06/12/21 05/15/21 tablet,extended release 24 hr levetiracetam 1,000 mg tablet 1,000 mg PO BID 05/15/21 06/12/21 05/15/21 lisinopril 5 mg tablet 10 mg PO DAILY 05/15/21 06/12/21 05/15/21 loratadine 10 mg tablet 10 mg PO DAILY 05/15/21 06/12/21 Unknown morphine 30 mg tablet,extended 30 mg PO BID 05/15/21 06/12/21 05/15/21 release oxycodone 5 mg tablet 5 mg PO Q6 PRN 05/15/21 06/12/21 Unknown phenytoin sodium extended 100 mg 100 mg PO TID 05/15/21 06/12/21 05/15/21 capsule potassium chloride 20 mEq 40 meq PO DAILY 05/15/21 06/12/21 05/15/21 tablet,extended release(part/cryst) prazosin 1 mg capsule 1 mg PO BID 05/15/21 06/12/21 05/15/21 protein 500 mg chewable tablet 500 mg PO DAILY 05/15/21 06/12/21 Unknown tizanidine 4 mg tablet 4 mg PO Q8 PRN 05/15/21 06/12/21 Unknown trazodone 50 mg tablet 100 mg PO HS 05/15/21 06/12/21 05/15/21 ferrous sulfate 325 mg (65 mg 325 mg PO BIDM #60 tab 05/18/21 06/12/21 Unknown iron) tablet,delayed release pantoprazole 40 mg tablet,delayed 40 mg PO BID #60 tab 05/18/21 06/12/21 Unknown release acetaminophen 325 mg tablet 325 mg PO Q6H PRN 06/12/21 06/12/21 Unknown (Tylenol) aspirin 325 mg tablet,delayed 650 mg PO BID PRN 06/12/21 06/12/21 Unknown release gabapentin 300 mg capsule 300 mg PO TID 06/12/21 06/12/21 Unknown guaifenesin 600 mg tablet, 600 mg PO Q12H PRN 06/12/21 06/12/21 Unknown extended release 12 hr ondansetron HCl 4 mg tablet 4 mg PO Q8H PRN 06/12/21 06/12/21 Unknown (Zofran) primidone 50 mg tablet 50 mg PO TID 06/12/21 06/12/21 Unknown Active Medications Generic Name Dose Route Start Last Admin Trade Name Freq PRN Reason Stop Dose Admin Albuterol 3 ml 06/13/21 08:04 06/19/21 05:45 Albut/Ipratrop 3mg/0.5mg Neb 3 Ml Vial NEB 07/13/21 10:59 3 ml Q4R PRN Administration Wheezing Aspirin 81 mg 06/13/21 16:15 06/19/21 08:43 Aspirin 81 Mg Chew NG 07/13/21 16:14 81 mg DAILY DENISSE Administration Atorvastatin Calcium 80 mg 06/12/21 21:00 06/18/21 20:23 Atorvastatin 40 Mg Tab PO 07/12/21 20:59 80 mg HS DENISSE Administration Clopidogrel Bisulfate 75 mg 06/13/21 16:15 06/19/21 08:43 Clopidogrel Bisulfate 75 Mg Tab PO 07/13/21 16:14 75 mg QAM DENISSE Administration Enteral Nutritional Formula 1,000 ml 06/15/21 13:30 06/19/21 12:20 Peptamen 1.5 Armando 1,000 Ml Bag GT 07/15/21 13:29 1,000 ml UD DENISSE Administration Protocol Ferrous Sulfate 325 mg 06/15/21 17:00 06/19/21 08:42 Ferrous Sulfate 325 Mg/7.4 Ml Udp PO 07/15/21 16:59 325 mg BIDM DENISSE Administration Fluticasone Furoate 1 puffs 06/18/21 10:00 06/19/21 08:41 Fluticasone Furoate 100mcg 14 Puffs/Inhaler INH 07/18/21 09:59 1 puffs DAILY DENISSE Administration Fluticasone Propionate 2 sprays 06/12/21 09:00 06/19/21 08:43 Fluticasone Propionate Na Spr 16 Gm Btl NA 07/12/21 08:59 2 sprays DAILY DENISSE Administration Gabapentin 900 mg 06/15/21 14:00 06/19/21 14:49 Gabapentin 250 Mg/5 Ml 470 Ml Btl PO 07/15/21 13:59 900 mg TID DENISSE Administration Phenytoin 100 mg/ Syringe 2 mls @ 1 mls/min 06/12/21 09:00 06/19/21 14:50 IV 07/12/21 08:59 1 mls/min TID DENISSE Administration Pantoprazole Sodium 40 mg/ 10 mls @ 5 mls/min 06/14/21 21:00 06/19/21 08:46 Syringe IV 07/14/21 20:59 5 mls/min BID@0900,2100 DENISSE Administration Ampicillin Sodium/Sulbactam 104 mls @ 200 mls/hr 06/14/21 20:00 06/19/21 14:49 Sodium 1,500 mg/ Sodium IV 06/21/21 19:59 200 mls/hr Chloride Q6H DENISSE Administration Protocol Heparin Sodium/Dextrose 25,000 units in 500 mls @ 21 mls/hr 06/17/21 01:45 06/19/21 13:33 Heparin Sodium/Dextrose IV 07/17/21 01:44 1,050 units/hr .[id number] DENISSE 21 mls/hr Titration Protocol 1,050 UNITS/HR Thiamine HCl 100 mg/ Syringe 10 mls @ 2 mls/min 06/17/21 21:00 06/19/21 08:46 IV 07/17/21 20:59 2 mls/min BID DENISSE Administration Insulin Aspart 0 units 06/13/21 12:00 06/19/21 12:20 Insulin Aspart 100 Units/Ml 3 Ml Pen SC 07/13/21 11:59 1 units Q6 DENISSE Administration Isosorbide Mononitrate 120 mg 06/12/21 09:00 06/12/21 08:32 Isosorbide Morgan Extended Rel 60 Mg Tabcr PO 07/12/21 08:59 Not Given BID DENISSE Levetiracetam 1,000 mg 06/17/21 21:00 06/19/21 08:42 Levetiracetam Oral Soln 100mg/Ml PO 07/17/21 20:59 1,000 mg BID DENISSE Administration Lisinopril 2.5 mg 06/14/21 09:00 06/19/21 08:42 Lisinopril 2.5 Mg Tab PO 07/14/21 08:59 2.5 mg DAILY DENISSE Administration Loratadine 10 mg 06/12/21 09:00 06/19/21 08:42 Loratadine 10 Mg Tab PO 07/12/21 08:59 10 mg DAILY DENISSE Administration Metoprolol Tartrate 12.5 mg 06/17/21 14:00 06/19/21 08:42 Metoprolol Tartrate 25 Mg Tab PO 07/17/21 13:59 12.5 mg TID DENISSE Administration Miscellaneous 1 ea 06/12/21 18:00 06/19/21 02:31 Icu Electrolyte Replacement Protocol N/A 06/19/21 17:59 Not Given BID@18 [facility] Protocol Nitroglycerin 0.5 inch 06/14/21 11:15 06/19/21 12:16 Nitroglycerin 2% Ointment 30gm Tube EXT 07/14/21 11:14 0.5 inch Q6H DENISSE Administration Oxycodone HCl 5 mg 06/17/21 18:23 06/19/21 14:50 Oxycodone Hcl Soln 5 Mg/5 Ml Udc PO 07/01/21 18:22 5 mg Q4H PRN Administration Pain Potassium Chloride 40 meq 06/16/21 09:00 06/19/21 08:42 Potassium Chloride 20 Meq/15 Ml Udc PO 07/16/21 08:59 40 meq DAILY DENISSE Administration Prazosin HCl 1 mg 06/12/21 09:00 06/19/21 08:42 Prazosin Hcl 1 Mg Cap PO 07/12/21 08:59 1 mg BID DENISSE Administration Primidone 50 mg 06/12/21 09:00 06/19/21 14:51 Primidone 50 Mg Tab PO 07/12/21 08:59 50 mg TID DENISSE Administration Sodium Chloride 20 ml 06/12/21 09:00 06/19/21 14:52 Sodium Chloride 0.9% 10ml Flush IV 07/12/21 08:59 20 ml TID DENISSE Administration Sterile Water 60 ml 06/15/21 13:30 06/19/21 12:36 Tube Feeding Water Flush GT 07/15/21 13:29 60 ml Q4H DENISSE Administration Umeclidinium/Vilanterol 1 puffs 06/18/21 10:15 06/19/21 08:45 Umeclidinium/Vilanterol 62.5/25mcg 7 Puffs/Inhaler INH 07/18/21 10:14 1 puffs DAILY DENISSE Administration Exercise / Class Metabolic Activity II 4-5 Yardwork/Stairs/Walk up hill Past Anesthesia History No Hx of Anesthesia Complications and No Family Hx of Anesthesia Complications History of PONV No Hx of PONV and No Hx of Motion Sickness Social History Smoking Status: Current every day smoker tobacco type: cigarettes Do You Dip or Chew Tobacco: No Hx Alcohol Use: No Hx Substance Use: Yes substance use type: marijuana Last Used Substance: Unknown Review of Systems denies fever/cough/ colds/ chest pain/ SOB/ CULLEN denies CULLEN Physical Exam Vital Signs Last Vital Signs Temp 37.2 C 06/19/21 11:48 Pulse 84 06/19/21 11:48 Resp 22 06/19/21 11:48 BP 116/66 06/19/21 11:48 Pulse Ox 88 L 06/19/21 14:48 ENMT Mouth: no TMJ abnormality and no dentition abnormality Thyromental Distance: > or= 3.5 Finger Breadths Mallampati Class: II Neck neck extension not limited Respiratory normal respiratory effort; no respiratory distress Auscultation: lungs clear to auscultation bilaterally Cardiovascular Rate/Rhythm: regular rate and regular rhythm Neurologic moves all extremities Psychiatric Orientation: alert and oriented x 3 Testing Laboratory Results 06/19/21 05:36 06/18/21 08:36 PT 11.7 Seconds (9.0-12.0) 06/19/21 05:36 INR 1.2 (0.9-1.1) H 06/19/21 05:36 APTT 41.3 Seconds (21.0-31.0) H 06/19/21 11:51 Urine Color Dark Yellow 06/15/21 04:10 Urine Appearance Clear (Clear) 06/15/21 04:10 Urine pH 5.0 (4.5-7.5) 06/15/21 04:10 Ur Specific [place] 1.024 (1.000-1.030) 06/15/21 04:10 Urine Protein 1+ (Negative) H 06/15/21 04:10 Urine Glucose (UA) Negative (Negative) 06/15/21 04:10 Urine Ketones Negative (Negative) 06/15/21 04:10 Urine Nitrite Negative (Negative) 06/15/21 04:10 Ur Leukocyte Esterase Negative (Negative) 06/15/21 04:10 Urine WBC (Auto) 5-10 /hpf (0-5) H 06/15/21 04:10 Urine RBC (Auto) >30 /hpf (0-4) H 06/15/21 04:10 U Hyaline Cast (Auto) 5-10 /lpf (0-5) H 06/15/21 04:10 U Epithel Cells (Auto) >30 /lpf (0-5) H 06/15/21 04:10 Urine Bacteria (Auto) Negative (Negative) 06/15/21 04:10 Blood Type O Positive 06/17/21 01:45 Antibody Screen NEGATIVE 06/17/21 01:45 06/16/21 15:00 Gram Stain - Final Bronch Washings Combined Bronchial Culture - Final Adrianne albicans/dubliniensis 06/15/21 04:33 Aerobic Blood Culture - Preliminary Blood No growth in Aerobic bottle after 48 hours. Anaerobic Blood Culture - Final 06/15/21 04:45 Aerobic Blood Culture - Preliminary Blood No growth in Aerobic bottle after 48 hours. Anaerobic Blood Culture - Final 06/12/21 00:28 Aerobic Blood Culture - Final Blood No growth in Aerobic bottle after 5 days. Anaerobic Blood Culture - Final 06/11/21 23:20 Aerobic Blood Culture - Final Blood No growth in Aerobic bottle after 5 days. Anaerobic Blood Culture - Final 06/12/21 01:07 Urine Culture - Final Urine,Straight Cath Lactobacillus species 06/19/21 06/19/21 11:37 05:28 POC Glucose 185 H 164 H Echocardiogram Date: 06/12/21 EF: 25-30 LV Function: dysfunctional
[2021-06-19] MEDS: HEPARIN SODIUM/DEXTROSE 25,000 UNITS/500 ML BAG IV SCH (19:53)
[2021-06-19] MEDS: ATORVASTATIN 40 MG TAB PO SCH (20:02)
[2021-06-19 20:37] LABS: Partial Thromboplastin Ratio 1.7
[2021-06-19 20:39] LABS: Partial Thromboplastin Time 45.8 Seconds (21.0-31.0)
--- NOTE | 2021-06-19 23:20 | Hospitalist Progress Note ---
Date of Service June 19, 2021 Assessment & Plan (1) Non-ST elevation NM (NSTEMI): Plan: ASSESSMENT AND PLAN: This is a 55-year-old female who presents with agitation, chest pain, pain all over and found to be with non-ST elevated myocardial infarction and congestive heart failure. 1. Respiratory Distress: The patient is s/p intubation and mechanical ventilation, possibly secondary to congestive heart failure, received Lasix in ER -- self extubated 06/14 -- reintubated 06/15 -- s/p trach placement 06/16 further management per [employer] service Possible Aspiration Pneumonia Continue Unasyn -- respiratory status stable overall monitor closely 2. Non-ST elevated myocardial infarction: Status post cardiac catheterization and stent to the proximal LAD lesion, post-cath care as per cardiology. Ischemic Cardiomyopathy -- s/p Cardiac Cath 06/[address] Hinojosa: 1. Severe multivessel vessel coronary artery disease -90% possibly acute proximal LAD stenosis. Patent mid LAD stent 100% chronic mid RCA occlusion. Distal vessel fills via [id number] collaterals. 2. Elevated intracardiac filling pressure. LVEDP 34 3. Severe obstructive abdominal aortic disease (unable to pass 5 Fr catheter across stenosis). 4. Successful PCI of proximal to mid LAD with single drug-eluting stent (3.0 x 18 mm Soham; postdilated with 3.5 NC, overlaps proximal aspect of prior stent). Echo: 25-30% extensive wall motion abnormalities with the inferior wall being akinetic at the base on ASA, Plavix, Imdur-->changed to Nitropaste, IV Metoprolol, Lisinopril, Lipitor on Lasix 40mg IV BID continue Severe Dysphagia Failed swallow eval High risk for aspiration. P Plan for PEG placement by GI Continue NGT feeding Keep NPO for now 3. Anemia, possible GI bleed -- Hemoglobin was 5.4 last admission, required 4 units of PRBCs. Currently hemoglobin is 8.7. ER started on Protonix drip today which will continue. -- s/p 1 unit pRBC given -- Hg 10 -- GI not recommending EGD/Colonoscopy due to above given Protonix drip , transition to IV BID Right Arm DVT -- on heparin drip monitor for GI bleeding 4. Possible urinary tract infection -- blood and urine cultures negative so far 5. Elevated lactic acid and acidosis: Most likely from the acute coronary syndrome and respiratory distress. -- improved 6. The patient is on chronic pain medication. T Oxycodone PRN 7. History of coronary artery disease. History of LAD stenting in the past as well as vasospastic angina 8. History of VT arrest due to coronary artery vasospasm versus acquired QT prolongation possible of azithromycin exposure, status post single chamber AICD. 9. History of peripheral vascular disease, superficial femoral artery occlusion, left subclavian artery stenosis. on aspirin and Plavix. 10. History of myotonic muscular dystrophy. PT, OT when stable. 11. History of pulmonary embolism. Coumadin was discontinued due to GI bleed in 2019. 12. History of left carotid endarterectomy in 2015. 13. History of chronic obstructive pulmonary disease: Continue her home inhalers. 14. History of seizures: On Keppra and phenytoin 15. History of diastolic congestive heart failure: per above 16. History of hypertension: 17. History of deep venous thrombosis prophylaxis: Will place on sequential compression devices for now because of possible gastrointestinal bleed. 18. Underweight -- Nutrition consult Admission and Anticipated Discharge Date Admission Date: June 12, 2021 Subjective Pt was seen and examined for follow of respiratory Lying in bed with no acute distress Pt placed the valve to the trach to speak She said that she is having pain around the trach area She said that she hates the trach Denies any chest pain, palpitation, dizziness and fever Review of Systems Review of Systems: All systems reviewed & are unremarkable except as noted in Subjective Physical Exam Physical Exam: General- No acute distress Head- atraumatic Eyes- PERRL, EOMI, ENT- +trach in placed Neck- supple, no JVD Lungs- clear to auscultation Heart- regular rhythm; no murmur Abdomen- normal bowel sounds, soft, nontender Extremities- no calf tenderness Neuro- alert, oriented x 3; PERRL, EOMI; no facial palsy; no dysarthria Skin- warm & dry Results & Data Results & Data ([facility]) Vital Signs (Past 12 Hours) Vital Signs Temp Pulse Resp BP Pulse Ox 06/19/21 19:49 37.6 C H 88 26 H 123/70 95 06/19/21 15:35 99/64 L 06/19/21 15:11 37.5 C 82 20 83/49 L 90 06/19/21 14:48 88 L 06/19/21 11:48 37.2 C 84 22 116/66 92
[2021-06-20] MEDS: NITROGLYCERIN 2% OINTMENT 30GM TUBE EXT SCH ×4 (00:17→16:54)
[2021-06-20] MEDS: INSULIN ASPART 100 UNITS/ML 3 ML PEN SC SCH ×4 (00:31→16:54)
[2021-06-20] MEDS: TUBE FEEDING WATER FLUSH GT SCH ×6 (01:47→20:34)
[2021-06-20] MEDS: AMPICILLIN/SULBACTAM SOD 1,500 MG in 0.9 % SODIUM CHLORIDE 100 ML IV SCH ×4 (02:12→20:02)
[2021-06-20 03:26] LABS: INR 1.1 (0.9-1.1); Partial Thromboplastin Ratio 1.6; Partial Thromboplastin Time 42.7 Seconds (21.0-31.0); Prothrombin Time 11.4 Seconds (9.0-12.0)
[2021-06-20] MEDS: ALBUT/IPRATROP 3MG/0.5MG NEB 3 ML VIAL NEB PRN (04:53)
[2021-06-20] MEDS: POTASSIUM CHLORIDE 20 MEQ/15 ML UDC PO SCH (08:00)
[2021-06-20] MEDS: oxyCODONE HCL SOLN 5 MG/5 ML UDC PO PRN ×3 (08:00→23:38)
[2021-06-20] MEDS: FERROUS SULFATE 325 MG/7.4 ML UDP PO SCH ×2 (08:01→16:53)
[2021-06-20] MEDS: ACETAMINOPHEN SUSP 325 MG/10.15 ML UDC PEG PRN (08:01)
[2021-06-20] MEDS: levETIRAcetam ORAL SOLN 100MG/ML PO SCH ×2 (08:01→20:12)
[2021-06-20] MEDS: METOPROLOL TARTRATE 25 MG TAB PO SCH ×3 (08:02→20:13)
[2021-06-20] MEDS: lisinopril 2.5 MG TAB PO SCH (08:02)
[2021-06-20] MEDS: CLOPIDOGREL BISULFATE 75 MG TAB PO SCH (08:02)
[2021-06-20] MEDS: ASPIRIN 81 MG CHEW NG SCH (08:03)
[2021-06-20] MEDS: PRIMIDONE 50 MG TAB PO SCH ×3 (08:03→20:34)
[2021-06-20] MEDS: PRAZOSIN HCL 1 MG CAP PO SCH ×2 (08:03→20:13)
[2021-06-20] MEDS: LORATADINE 10 MG TAB PO SCH (08:03)
[2021-06-20] MEDS: GABAPENTIN 250 MG/5 ML 470 ML BTL PO SCH ×3 (08:05→20:17)
[2021-06-20] MEDS: PHENYTOIN 100 MG in SYRINGE 0 ML IV SCH ×3 (08:05→20:02)
[2021-06-20] MEDS: THIAMINE HCL 100 MG in SYRINGE 9 ML IV SCH ×2 (08:06→20:14)
[2021-06-20] MEDS: PANTOprazole 40 MG in SYRINGE 0 ML IV SCH ×2 (08:06→20:13)
[2021-06-20] MEDS: FLUTICASONE PROPIONATE NA SPR 16 GM BTL SCH (08:07)
[2021-06-20] MEDS: FLUTICASONE FUROATE 100MCG 14 PUFFS/INHALER INH SCH (08:07)
[2021-06-20] MEDS: SODIUM CHLORIDE 0.9% 10ML FLUSH IV SCH ×3 (08:07→20:10)
[2021-06-20] MEDS: UMECLIDINIUM/VILANTEROL 62.5/25MCG 7 PUFFS/INHALER INH SCH (08:08)
--- NOTE | 2021-06-20 09:32 | Communication Note ---
Date of Service: June 20, 2021 Plan for PEG placement tomorrow. Would consider decannulation status post PEG and recovery from sedation. Would use Passy-Vikram valve, we will continue to follow for tracheostomy needs. Postop day 4 Coding Level of Care Code None
--- NOTE | 2021-06-20 10:11 | Communication Note ---
Date of Service: June 20, 2021 Pt evaluated by Anesthesia, deemed acceptable candidate for sedation for PEG tube placement. Plan to proceed with EGD assisted PEG tube placement by Dr. Waddell on 06/21. NPO and hold NGT feed after midnight. Hold Heparin after midnight. May continue ASA and Plavix in light or recent AKIKO placement.
[2021-06-20 10:46] LABS: Partial Thromboplastin Ratio 1.7; Partial Thromboplastin Time 44.1 Seconds (21.0-31.0)
[2021-06-20 10:47] LABS: Hemoglobin 8.9 g/dL (12.0-16.0); Mean Corpuscular Hemoglobin 26.9 pg (25-34); Mean Corpuscular Hgb Conc 28.7 g/dL (32-36); Mean Corpuscular Volume 93.7 fL (80-100); Mean Platelet Volume 10.5 fL (7.4-10.4); Nucleated RBC # (auto) 0.04 K/uL (0-0); Nucleated RBC % (auto) 0.3 %; Platelet Count 202 K/uL (130-400); RDW Coefficient of Variation 20.7 % (11.5-14.5); RDW Standard Deviation 69.9 fL (36.4-46.3); Red Blood Count 3.31 M/uL (4.2-5.4); White Blood Count 12.95 K/uL (4.8-10.8)
[2021-06-20 10:58] LABS: Albumin Level 2.1 gm/dl (3.4-5.0); BUN Creatinine Ratio 50.5 (10-20); Calcium 8.1 mg/dl (8.5-10.1); Creatinine Clr Calc Pharmacy 146.5 ml/min; Est GFR (African American) 146.8 ml/min; Est GFR (Non-African American) 126.6 ml/min; Potassium 4.7 mmol/L (3.5-5.1)
[2021-06-20 11:00] LABS: Albumin Globulin Ratio 0.5 (0.9-2); Bilirubin,Total 0.3 mg/dl (0.2-1); Globulin 3.9 gm/dl (2.5-4.0)
[2021-06-20] MEDS: PEPTAMEN 1.5 CAL 1,000 ML BAG GT SCH (13:02)
--- NOTE | 2021-06-20 19:15 | Hospitalist Progress Note ---
Date of Service June 20, 2021 Assessment & Plan (1) Non-ST elevation [place] (NSTEMI): Plan: ASSESSMENT AND PLAN: This is a 55-year-old female who presents with agitation, chest pain, pain all over and found to be with non-ST elevated myocardial infarction and congestive heart failure. 1. Respiratory Distress: The patient is s/p intubation and mechanical ventilation, possibly secondary to congestive heart failure, received Lasix in ER -- self extubated 06/14 -- reintubated 06/15 -- s/p trach placement 06/16 further management per [employer] service Possible Aspiration Pneumonia Continue Unasyn -- respiratory status stable overall monitor closely 2. Non-ST elevated myocardial infarction: Status post cardiac catheterization and stent to the proximal LAD lesion, post-cath care as per cardiology. Ischemic Cardiomyopathy -- s/p Cardiac Cath 06/[address] Hinojosa: 1. Severe multivessel vessel coronary artery disease -90% possibly acute proximal LAD stenosis. Patent mid LAD stent 100% chronic mid RCA occlusion. Distal vessel fills via [id number] collaterals. 2. Elevated intracardiac filling pressure. LVEDP 34 3. Severe obstructive abdominal aortic disease (unable to pass 5 Fr catheter across stenosis). 4. Successful PCI of proximal to mid LAD with single drug-eluting stent (3.0 x 18 mm Soham; postdilated with 3.5 NC, overlaps proximal aspect of prior stent). Echo: 25-30% extensive wall motion abnormalities with the inferior wall being akinetic at the base on ASA, Plavix, Imdur-->changed to Nitropaste, IV Metoprolol, Lisinopril, Lipitor on Lasix 40mg IV BID continue Severe Dysphagia Failed swallow eval High risk for aspiration. P Plan for PEG placement by GI tomorrow by Dr. Aiden Norris We will make n.p.o. and hold NG tube feeding after midnight We will hold Heparin after midnight. Continue ASA and Plavix in light or recent AKIKO placement. 3. Anemia, possible GI bleed -- Hemoglobin was 5.4 last admission, required 4 units of PRBCs. Currently hemoglobin is 8.7. ER started on Protonix drip today which will continue. -- s/p 1 unit pRBC given -- Hg 10 -- GI not recommending EGD/Colonoscopy due to above given Protonix drip , transition to IV BID Right Arm DVT -- on heparin drip monitor for GI bleeding 4. Possible urinary tract infection -- blood and urine cultures negative so far 5. Elevated lactic acid and acidosis: Most likely from the acute coronary syndrome and respiratory distress. -- improved 6. The patient is on chronic pain medication. T Oxycodone PRN 7. History of coronary artery disease. History of LAD stenting in the past as well as vasospastic angina 8. History of VT arrest due to coronary artery vasospasm versus acquired QT prolongation possible of azithromycin exposure, status post single chamber AICD. 9. History of peripheral vascular disease, superficial femoral artery occlusion, left subclavian artery stenosis. on aspirin and Plavix. 10. History of myotonic muscular dystrophy. PT, OT when stable. 11. History of pulmonary embolism. Coumadin was discontinued due to GI bleed in 2019. 12. History of left carotid endarterectomy in 2015. 13. History of chronic obstructive pulmonary disease: Continue her home inhalers. 14. History of seizures: On Keppra and phenytoin 15. History of diastolic congestive heart failure: per above 16. History of hypertension: 17. History of deep venous thrombosis prophylaxis: Will place on sequential compression devices for now because of possible gastrointestinal bleed. 18. Underweight -- Nutrition on board Admission and Anticipated Discharge Date Admission Date: June 12, 2021 Subjective Pt was seen and examined for follow of respiratory failure and dysphagia Lying in bed with no acute distress at bedside Denies any chest pain, palpitation, dizziness and fever Review of Systems Review of Systems: All systems reviewed & are unremarkable except as noted in Subjective Physical Exam Physical Exam: General- No acute distress Head- atraumatic Eyes- PERRL, EOMI, ENT- +trach in placed Neck- supple, no JVD Lungs- clear to auscultation Heart- regular rhythm; no murmur Abdomen- normal bowel sounds, soft, nontender Extremities- no calf tenderness Neuro- alert, oriented x 3; PERRL, EOMI; no facial palsy; no dysarthria Skin- warm & dry Results & Data Results & Data ([facility]) Vital Signs (Past 12 Hours) Vital Signs Temp Pulse Resp BP Pulse Ox 06/20/21 17:06 37.3 C 87 26 H 112/66 93 06/20/21 11:52 36.5 C 80 24 143/65 H 93 06/20/21 08:00 37.1 C 89 24 135/74 90
[2021-06-20 19:22] LABS: Partial Thromboplastin Ratio 1.5; Partial Thromboplastin Time 38.2 Seconds (21.0-31.0)
--- NOTE | 2021-06-20 19:49 | Anesthesiology Consultation ---
Date of Service June 20, 2021 Assessment & Plan (1) Encounter for pre-operative examination: Chart Review Chart Review: Acceptable Risk for Surgery and Patient NOT seen in Pre Admission Testing Consults Requested none Additional Notes 55 yo female s/p non-ST elevated myocardial infarction and CHF s/p stent to the proximal LAD (EF 25-30%) with subsequent respiratory distress eventually requiring trach placement, possible aspiration pneumonia, severe obstructive abdominal aortic disease, anemia requiring recent transfusion, right arm DVT, AICD after prior VT arrest, PVD, COPD, and HTN. Pt requires PEG tube placement for dysphagia. Pt is high risk for perioperative complications due to severe comorbidities, but procedure is necessary and pt appears to be optimized as much as possible at this time given her medical conditions. History Surgery Operation Date: 06/12/21 01:30 Proposed Procedures p Cardiac Heart Alert - Carlos Enrique Hinojosa MD Operation Date: 06/21/21 11:00 Proposed Procedures p Esophagogastroduodenoscopy with Gastric Tube Placement - Nick Waddell MD Operation Date: 06/21/21 15:30 Proposed Procedures p Esophagogastroduodenoscopy Dr Waddell with Gastric Tube Placement - Nick Waddell MD Height/Weight Height: 5 ft 5 in Weight: 45.8 kg Allergies Allergy/AdvReac Type Severity Reaction Status Date / Time bee venom protein (honey bee) Allergy Severe Anaphylaxis Verified 06/12/21 00:03 -HIVES Influenza Virus Vaccines Allergy Severe EDEMA Verified 06/13/21 09:54 AIRWAY latex Allergy Intermediate HIVES, Verified 06/12/21 00:03 BLISTERS scopolamine Allergy Unknown Unknown Verified 06/12/21 00:03 azithromycin [From Zithromax] AdvReac Severe STOMACH Verified 06/12/21 00:03 ULCERS, BLEEDING, ARRYTHMIAS dexbrompheniramine AdvReac Severe CARDIAC Verified 06/12/21 00:03 SPASMS--ALL ANTIHISTAMINES pseudoephedrine AdvReac Severe CARDIAC Verified 06/12/21 00:03 SPASMS--ALL ANTIHISTAMINES levofloxacin AdvReac Intermediate QTC Verified 06/12/21 00:03 PROLONGATION H/O VF ARREST meperidine AdvReac Intermediate NAUSEA, Verified 06/12/21 00:03 VOMITING methadone AdvReac Intermediate NAUSEA, Verified 06/12/21 00:03 VOMITING, RASH diphenhydramine AdvReac Mild "ARTERITAL Verified 06/12/21 00:03 SPASMS" COLD AdvReac Unknown VASCULAR Uncoded 06/12/21 00:03 COLLAPSE SYNDROME Medications Home Medications Medication Instructions Recorded Confirmed Last Taken albuterol sulfate 90 mcg/actuation 2 puff INHALATION Q4 PRN 05/15/21 06/12/21 Unknown aerosol inhaler aspirin 81 mg tablet,delayed 81 mg PO DAILY 05/15/21 06/12/21 05/15/21 release atorvastatin 80 mg tablet 80 mg PO HS 05/15/21 06/12/21 05/15/21 diltiazem HCl 240 mg capsule,24 480 mg PO DAILY 05/15/21 06/12/21 05/15/21 hr,extended release epinephrine 0.3 mg/0.3 mL 0.3 mg IM UD PRN 05/15/21 06/12/21 Unknown injection, auto-injector (EpiPen) fluticasone propionate 50 2 spray INTRANASAL DAILY 05/15/21 06/12/21 05/15/21 mcg/actuation nasal spray,suspension furosemide 20 mg tablet 20 mg PO DAILY 05/15/21 06/12/21 05/15/21 gabapentin 600 mg tablet 600 mg PO TID 05/15/21 06/12/21 05/15/21 isosorbide dinitrate 5 mg tablet 5 mg PO DIRECTED PRN 05/15/21 06/12/21 Unknown isosorbide mononitrate 120 mg 120 mg PO AMPM 05/15/21 06/12/21 05/15/21 tablet,extended release 24 hr levetiracetam 1,000 mg tablet 1,000 mg PO BID 05/15/21 06/12/21 05/15/21 lisinopril 5 mg tablet 10 mg PO DAILY 05/15/21 06/12/21 05/15/21 loratadine 10 mg tablet 10 mg PO DAILY 05/15/21 06/12/21 Unknown morphine 30 mg tablet,extended 30 mg PO BID 05/15/21 06/12/21 05/15/21 release oxycodone 5 mg tablet 5 mg PO Q6 PRN 05/15/21 06/12/21 Unknown phenytoin sodium extended 100 mg 100 mg PO TID 05/15/21 06/12/21 05/15/21 capsule potassium chloride 20 mEq 40 meq PO DAILY 05/15/21 06/12/21 05/15/21 tablet,extended release(part/cryst) prazosin 1 mg capsule 1 mg PO BID 05/15/21 06/12/21 05/15/21 protein 500 mg chewable tablet 500 mg PO DAILY 05/15/21 06/12/21 Unknown tizanidine 4 mg tablet 4 mg PO Q8 PRN 05/15/21 06/12/21 Unknown trazodone 50 mg tablet 100 mg PO HS 05/15/21 06/12/21 05/15/21 ferrous sulfate 325 mg (65 mg 325 mg PO BIDM #60 tab 05/18/21 06/12/21 Unknown iron) tablet,delayed release pantoprazole 40 mg tablet,delayed 40 mg PO BID #60 tab 05/18/21 06/12/21 Unknown release acetaminophen 325 mg tablet 325 mg PO Q6H PRN 06/12/21 06/12/21 Unknown (Tylenol) aspirin 325 mg tablet,delayed 650 mg PO BID PRN 06/12/21 06/12/21 Unknown release gabapentin 300 mg capsule 300 mg PO TID 06/12/21 06/12/21 Unknown guaifenesin 600 mg tablet, 600 mg PO Q12H PRN 06/12/21 06/12/21 Unknown extended release 12 hr ondansetron HCl 4 mg tablet 4 mg PO Q8H PRN 06/12/21 06/12/21 Unknown (Zofran) primidone 50 mg tablet 50 mg PO TID 06/12/21 06/12/21 Unknown Active Medications Generic Name Dose Route Start Last Admin Trade Name Adi PRN Reason Stop Dose Admin Acetaminophen 650 mg 06/20/21 00:57 06/20/21 08:01 Acetaminophen Susp 325 Mg/10.15 Ml Udc PEG 07/20/21 00:56 650 mg Q6H PRN Administration pain/fever Albuterol 3 ml 06/13/21 08:04 06/20/21 04:53 Albut/Ipratrop 3mg/0.5mg Neb 3 Ml Vial NEB 07/13/21 10:59 3 ml Q4R PRN Administration Wheezing Aspirin 81 mg 06/13/21 16:15 06/20/21 08:03 Aspirin 81 Mg Chew NG 07/13/21 16:14 81 mg DAILY DENISSE Administration Atorvastatin Calcium 80 mg 06/12/21 21:00 06/19/21 20:02 Atorvastatin 40 Mg Tab PO 07/12/21 20:59 80 mg HS DENISSE Administration Clopidogrel Bisulfate 75 mg 06/13/21 16:15 06/20/21 08:02 Clopidogrel Bisulfate 75 Mg Tab PO 07/13/21 16:14 75 mg QAM DENISSE Administration Enteral Nutritional Formula 1,000 ml 06/15/21 13:30 06/20/21 13:02 Peptamen 1.5 Armando 1,000 Ml Bag GT 07/15/21 13:29 1,000 ml UD DENISSE Administration Protocol Ferrous Sulfate 325 mg 06/15/21 17:00 06/20/21 16:53 Ferrous Sulfate 325 Mg/7.4 Ml Udp PO 07/15/21 16:59 325 mg BIDM DENISSE Administration Fluticasone Furoate 1 puffs 06/18/21 10:00 06/20/21 08:07 Fluticasone Furoate 100mcg 14 Puffs/Inhaler INH 07/18/21 09:59 1 puffs DAILY DENISSE Administration Fluticasone Propionate 2 sprays 06/12/21 09:00 06/20/21 08:07 Fluticasone Propionate Na Spr 16 Gm Btl NA 07/12/21 08:59 2 sprays DAILY DENISSE Administration Gabapentin 900 mg 06/15/21 14:00 06/20/21 13:02 Gabapentin 250 Mg/5 Ml 470 Ml Btl PO 07/15/21 13:59 900 mg TID DENISSE Administration Phenytoin 100 mg/ Syringe 2 mls @ 1 mls/min 06/12/21 09:00 06/20/21 13:02 IV 07/12/21 08:59 1 mls/min TID DENISSE Administration Pantoprazole Sodium 40 mg/ 10 mls @ 5 mls/min 06/14/21 21:00 06/20/21 08:06 Syringe IV 07/14/21 20:59 5 mls/min BID@0900,2100 DENISSE Administration Ampicillin Sodium/Sulbactam 104 mls @ 200 mls/hr 06/14/21 20:00 06/20/21 14:54 Sodium 1,500 mg/ Sodium IV 06/21/21 19:59 Infused Chloride Q6H DENISSE Infusion Protocol Heparin Sodium/Dextrose 25,000 units in 500 mls @ 24 mls/hr 06/17/21 01:45 06/20/21 19:13 Heparin Sodium/Dextrose IV 07/17/21 01:44 Infused .[id number] DENISSE Titration Protocol 1,200 UNITS/HR Thiamine HCl 100 mg/ Syringe 10 mls @ 2 mls/min 06/17/21 21:00 06/20/21 08:06 IV 07/17/21 20:59 2 mls/min BID DENISSE Administration Insulin Aspart 0 units 06/13/21 12:00 06/20/21 16:54 Insulin Aspart 100 Units/Ml 3 Ml Pen SC 07/13/21 11:59 3 units Q6 DENISSE Administration Isosorbide Mononitrate 120 mg 06/12/21 09:00 06/12/21 08:32 Isosorbide [place] Extended Rel 60 Mg Tabcr PO 07/12/21 08:59 Not Given BID DENISSE Levetiracetam 1,000 mg 06/17/21 21:00 06/20/21 08:01 Levetiracetam Oral Soln 100mg/Ml PO 07/17/21 20:59 1,000 mg BID DENISSE Administration Lisinopril 2.5 mg 06/14/21 09:00 06/20/21 08:02 Lisinopril 2.5 Mg Tab PO 07/14/21 08:59 2.5 mg DAILY DENISSE Administration Loratadine 10 mg 06/12/21 09:00 06/20/21 08:03 Loratadine 10 Mg Tab PO 07/12/21 08:59 10 mg DAILY DENISSE Administration Metoprolol Tartrate 12.5 mg 06/17/21 14:00 06/20/21 13:03 Metoprolol Tartrate 25 Mg Tab PO 07/17/21 13:59 12.5 mg TID DENISSE Administration Nitroglycerin 0.5 inch 06/14/21 11:15 06/20/21 16:54 Nitroglycerin 2% Ointment 30gm Tube EXT 07/14/21 11:14 0.5 inch Q6H DENISSE Administration Oxycodone HCl 5 mg 06/17/21 18:23 06/20/21 17:35 Oxycodone Hcl Soln 5 Mg/5 Ml Udc PO 07/01/21 18:22 5 mg Q4H PRN Administration Pain Potassium Chloride 40 meq 06/16/21 09:00 06/20/21 08:00 Potassium Chloride 20 Meq/15 Ml Udc PO 07/16/21 08:59 40 meq DAILY DENISSE Administration Prazosin HCl 1 mg 06/12/21 09:00 06/20/21 08:03 Prazosin Hcl 1 Mg Cap PO 07/12/21 08:59 1 mg BID DENISSE Administration Primidone 50 mg 06/12/21 09:00 06/20/21 13:03 Primidone 50 Mg Tab PO 07/12/21 08:59 50 mg TID DENISSE Administration Sodium Chloride 20 ml 06/12/21 09:00 06/20/21 13:02 Sodium Chloride 0.9% 10ml Flush IV 07/12/21 08:59 20 ml TID DENISSE Administration Sterile Water 60 ml 06/15/21 13:30 06/20/21 16:54 Tube Feeding Water Flush GT 07/15/21 13:29 60 ml Q4H DENISSE Administration Umeclidinium/Vilanterol 1 puffs 06/18/21 10:15 06/20/21 08:08 Umeclidinium/Vilanterol 62.5/25mcg 7 Puffs/Inhaler INH 07/18/21 10:14 1 puffs DAILY DENISSE Administration Social History Smoking Status: Current every day smoker tobacco type: cigarettes Do You Dip or Chew Tobacco: No Hx Alcohol Use: No Hx Substance Use: Yes substance use type: marijuana Last Used Substance: Unknown Physical Exam Vital Signs Last Vital Signs Temp 37.3 C 06/20/21 17:06 Pulse 87 06/20/21 17:06 Resp 26 H 06/20/21 17:06 BP 112/66 06/20/21 17:06 Pulse Ox 93 06/20/21 17:06 Testing Laboratory Results 06/20/21 10:28 06/20/21 10:28 PT 11.4 Seconds (9.0-12.0) 06/20/21 02:52 INR 1.1 (0.9-1.1) 06/20/21 02:52 APTT 38.2 Seconds (21.0-31.0) H 06/20/21 19:04 Urine Color Dark Yellow 06/15/21 04:10 Urine Appearance Clear (Clear) 06/15/21 04:10 Urine pH 5.0 (4.5-7.5) 06/15/21 04:10 Ur Specific Harriet 1.024 (1.000-1.030) 06/15/21 04:10 Urine Protein 1+ (Negative) H 06/15/21 04:10 Urine Glucose (UA) Negative (Negative) 06/15/21 04:10 Urine Ketones Negative (Negative) 06/15/21 04:10 Urine Nitrite Negative (Negative) 06/15/21 04:10 Ur Leukocyte Esterase Negative (Negative) 06/15/21 04:10 Urine WBC (Auto) 5-10 /hpf (0-5) H 06/15/21 04:10 Urine RBC (Auto) >30 /hpf (0-4) H 06/15/21 04:10 U Hyaline Cast (Auto) 5-10 /lpf (0-5) H 06/15/21 04:10 U Epithel Cells (Auto) >30 /lpf (0-5) H 06/15/21 04:10 Urine Bacteria (Auto) Negative (Negative) 06/15/21 04:10 Blood Type O Positive 06/17/21 01:45 Antibody Screen NEGATIVE 06/17/21 01:45 06/15/21 04:33 Aerobic Blood Culture - Final Blood No growth in Aerobic bottle after 5 days. Anaerobic Blood Culture - Final 06/15/21 04:45 Aerobic Blood Culture - Final Blood No growth in Aerobic bottle after 5 days. Anaerobic Blood Culture - Final 06/16/21 15:00 Gram Stain - Final Bronch Washings Combined Bronchial Culture - Final Adrianne albicans/dubliniensis 06/12/21 00:28 Aerobic Blood Culture - Final Blood No growth in Aerobic bottle after 5 days. Anaerobic Blood Culture - Final 06/11/21 23:20 Aerobic Blood Culture - Final Blood No growth in Aerobic bottle after 5 days. Anaerobic Blood Culture - Final 06/12/21 01:07 Urine Culture - Final Urine,Straight Cath Lactobacillus species 06/20/21 06/20/21 16:56 11:07 POC Glucose 156 H 188 H Electrocardiogram Date: 06/12/21 Sinus tachycardia (101) Left atrial enlargement Abnormal ECG When compared with ECG of 12-JUN-2021 11:04, Non-specific change in ST segment in Anterior leads T wave inversion no longer evident in Anterior leads Echocardiogram Date: 06/12/21 EF: 25-30% LV Function: dysfunctional (moderately to severely reduced) RWMA: + akinetic (inferior wall) and + hypokinetic (apex, inferior septum and inferior and posterior mixon) Other Findings: + LVH (moderate concentric) Valvular Disease: + MR (mild) mild to moderate tricuspid regurg, RV systolic pressure is elevated at 40-50 mmHg
[2021-06-20] MEDS: ATORVASTATIN 40 MG TAB PO SCH (20:11)
[2021-06-20] MEDS: HEPARIN SODIUM/DEXTROSE 25,000 UNITS/500 ML BAG IV SCH (20:48)
[2021-06-21] MEDS: NITROGLYCERIN 2% OINTMENT 30GM TUBE EXT SCH ×6 (00:46→23:52)
[2021-06-21] MEDS: TUBE FEEDING WATER FLUSH GT SCH ×6 (00:48→21:24)
[2021-06-21] MEDS: AMPICILLIN/SULBACTAM SOD 1,500 MG in 0.9 % SODIUM CHLORIDE 100 ML IV SCH ×3 (01:26→14:25)
[2021-06-21] MEDS: INSULIN ASPART 100 UNITS/ML 3 ML PEN SC SCH ×4 (01:27→19:20)
--- NOTE | 2021-06-21 09:38 | XRay Report ---
XR chest 1V portable HISTORY: hypoxia COMPARISON: Chest 06/16/2021. FINDINGS: No pneumothorax. Tracheostomy tube is in good position. There is a left-sided single lead p acemaker/defibrillator. Feeding tube terminates in the distal stomach. The tip is not entirely includ ed on this study. Interval progression of the moderate left and small right pleural effusion with bib asilar densities. There is mild interstitial pulmonary edema. Patchy airspace opacity within the righ t midlung zone is also new from the prior study. IMPRESSION: 1. Interval progression of the moderate left and small right pleural effusions with bibasilar densiti es. 2. Mild interstitial pulmonary edema. 3. Satisfactory support line placement. ACT 112: Negative or not required by law. Electronically signed by: Robert Godoy M.D. 06/21/2021 9:37 AM
[2021-06-21] MEDS ORDERED: ACETAMINOPHEN 65 ML IV ONE (10:32)
[2021-06-21 10:34] LABS: Hematocrit (blood only) 30.2 % (37-47); Hemoglobin 8.6 g/dL (12.0-16.0); Mean Corpuscular Hemoglobin 27.3 pg (25-34); Mean Corpuscular Hgb Conc 28.5 g/dL (32-36); Mean Corpuscular Volume 95.9 fL (80-100); Nucleated RBC # (auto) 0.04 K/uL (0-0); Nucleated RBC % (auto) 0.3 %; Platelet Count 196 K/uL (130-400); RDW Coefficient of Variation 20.6 % (11.5-14.5); Red Blood Count 3.15 M/uL (4.2-5.4); White Blood Count 16.16 K/uL (4.8-10.8)
[2021-06-21] MEDS: THIAMINE HCL 100 MG in SYRINGE 9 ML IV SCH ×2 (10:35→21:23)
[2021-06-21] MEDS: PHENYTOIN 100 MG in SYRINGE 0 ML IV SCH ×3 (10:36→21:19)
[2021-06-21] MEDS: PANTOprazole 40 MG in SYRINGE 0 ML IV SCH ×2 (10:36→21:19)
[2021-06-21 11:10] LABS: Alanine Aminotransferase 522 U/L (12-78); Albumin Globulin Ratio 0.5 (0.9-2); Albumin Level 2.1 gm/dl (3.4-5.0); Alkaline Phosphatase 162 U/L (45-117); Aspartate Aminotransferase 43 U/L (15-37); BUN Creatinine Ratio 53.1 (10-20); Blood Urea Nitrogen 13 mg/dl (7-18); Calcium 8.4 mg/dl (8.5-10.1); Carbon Dioxide 27 mmol/L (21-32); Chloride 112 mmol/L (98-107); Creatinine Clr Calc Pharmacy 181.7 ml/min; Est GFR (African American) > 150.0 ml/min; Est GFR (Non-African American) 135.9 ml/min; Globulin 3.9 gm/dl (2.5-4.0); Glucose 91 mg/dl (70-99); Potassium 4.8 mmol/L (3.5-5.1); Sodium 142 mmol/L (136-145)
[2021-06-21 11:18] LABS: Bilirubin,Total 0.4 mg/dl (0.2-1)
--- NOTE | 2021-06-21 11:46 | History & Physical Bridge Note ---
Date of Service June 21, 2021 History & Physical Bridge Note I have examined the patient, reviewed the History & Physical and in the interval since the performance of the History & Physical I have noted the following changes of clinical significance: no changes noted EGD with PEG tube placement today consented. Risk of infection, bleeding and perforation explained.
[2021-06-21] MEDS ORDERED: ceFAZolin 1000MG 1,000 MG/7.5 ML SYR IV ONE (12:12)
--- NOTE | 2021-06-21 12:31 | Operative Report ---
Post Operative Report Pre & Post Diagnosis Operation Date: 06/12/21 01:30 <No data on this case meets the specified criteria> Operation Date: 06/21/21 11:00 Pre-Op Diagnosis: Dysphagia Post-Op Diagnosis: PEG tube placement Operation Date: 06/21/21 15:30 <No data on this case meets the specified criteria> I identified the patient and participated in the time-out.: Yes Procedure Operation Date: 06/12/21 01:30 Actual Procedures p Drug Eluting Stent SGl Vessel - Carlos Enrique Hinojosa MD s Cath, Left with Cors and Vent - Carlos Enrique Hinojosa MD s Cineradiography w/Routine Exam - Carlos Enrique Hinojosa MD s Ultrasound Vascular Access - Carlos Enrique Hinojosa MD s Placement Art Occlusive Device - Carlos Enrique Hinojosa MD Operation Date: 06/21/21 11:00 Actual Procedures p Esophagogastroduodenoscopy with Percutaneous Endoscopic Gastrostomy Tube Placement(Not Applicable) - Nick Waddell MD Operation Date: 06/21/21 15:30 <No data on this case meets the specified criteria> Surgeon Nick Waddell MD Front Desk Host None Estimated Blood Loss 0 Findings See Below (PEG tube placed) Specimens None Description of Procedure EGD with PEG I attest to the content of the Intraoperative Record and any orders documented therein. Any exceptions are noted below.
--- NOTE | 2021-06-21 12:58 | GI REPORT ---
Patient Name: Catherine Freire Procedure Date: 06/21/2021 11:26 AM Date of : 1965 Admit Type: Inpatient Age: 55 Gender: Female Attending MD: Nick Waddell MD Procedure: Upper GI endoscopy Providers: Nick Waddell MD Referring MD: ALEXANDER HUNTER Indications: Place PEG because patient is unable to eat and patient requires ventilator support Medicines: Propofol per Anesthesia, Ancef 1000 mg IV Complications: No immediate complications. Estimated Blood Loss: Estimated blood loss: none. Procedure: Pre-Anesthesia Assessment: - Prior to the procedure, a History and Physical was performed, and patient medications, allergies and sensitivities were reviewed. The patient's tolerance of previous anesthesia was reviewed. - The alternatives, risks and benefits of the procedure were discussed at length with the patient's spouse. The patient's proxy verbalized understanding of the risks as well as the alternatives and wished to proceed with the procedure. - Patient identification and proposed procedure were verified prior to the procedure by the physician and the nurse. The procedure was verified in the procedure room. - Pre-procedure physical examination revealed no contraindications to sedation. After obtaining informed consent, the endoscope was passed under direct vision. Throughout the procedure, the patient's blood pressure, pulse, and oxygen saturations were monitored continuously. The Endoscope was introduced through the mouth, and advanced to the second part of duodenum. The upper GI endoscopy was accomplished without difficulty. The patient tolerated the procedure well. Findings: The examined esophagus was normal. The entire examined stomach was normal. The patient was placed in the supine position for PEG placement. The stomach was insufflated to appose gastric and abdominal mixon. A site was located in the body of the stomach with excellent transillumination and manual external pressure for placement. The abdominal wall was marked and prepped in a sterile manner. The area was anesthetized with 1 mL of 1% lidocaine. The trocar needle was introduced through the abdominal wall and into the stomach under direct endoscopic view. A snare was introduced through the endoscope and opened in the gastric lumen. The guide wire was passed through the trocar and into the open snare. The snare was closed around the guide wire. The endoscope and snare were removed, pulling the wire out through the mouth. A skin incision was made at the site of needle insertion. The externally removable 20 Fr FreddieCook gastrostomy tube was lubricated. The G-tube was tied to the guide wire and pulled through the mouth and into the stomach. The trocar needle was removed, and the gastrostomy tube was pulled out from the stomach through the skin. The external bumper was attached to the gastrostomy tube, and the tube was cut to remove the guide wire. The final position of the gastrostomy tube was confirmed by relook endoscopy, and skin marking noted to be 1.5 cm at the external bumper. The final tension and compression of the abdominal wall by the PEG tube and external bumper were checked and revealed that the bumper was moderately tight and mildly deforming the skin. The feeding tube was capped, and the tube site cleaned and dressed. The duodenal bulb and second portion of the duodenum were normal. Impression: - Normal esophagus. - Normal stomach. - Normal duodenal bulb and second portion of the duodenum. - An externally removable PEG placement was successfully completed. Recommendation: - Return patient to ICU for ongoing care. - Resume anticoagulant/ antiplatelets tomorrow. - Please follow the post-PEG recommendations including: Nutrition consult for formula and volume, dry dressing only and may use PEG tomorrow for feedings. Nick Waddell MD 06/21/2021 12:58:07 PM This report has been signed electronically. Note Initiated On: 06/21/2021 11:26 AM Number of Addenda: 0 I attest to the content of the Intraoperative Record and orders documented therein, exceptions below {[id number]}
[2021-06-21] MEDS ORDERED: PROPOFOL IV EMULSION 10 MG/ML 20 ML VIAL IV ONE (13:24)
[2021-06-21] MEDS ORDERED: ONDANSETRON INJ 2 MG/ML 2 ML VIAL ONE (13:24)
--- NOTE | 2021-06-21 13:27 | Anesthesiology Progress Note ---
Date of Service June 21, 2021 Anesthesia Post Procedure Vital Signs Vital Signs: Temp Pulse Pulse Pulse Resp BP Pulse Ox 06/21/21 11:03 37.7 C H 91 H 40 H 128/78 87 L 06/21/21 10:40 37 C 91 H 24 139/84 97 06/21/21 03:39 37.5 C 84 24 122/73 94 06/20/21 23:59 37.5 C 86 86 20 85/55 L 94 06/20/21 23:00 37.5 C 81 28 H 96 06/20/21 19:36 37.5 C 85 26 H 107/56 L 93 06/20/21 19:00 37.5 C 85 31 H 95 06/20/21 17:06 37.3 C 87 26 H 112/66 93 Pain Intensity Sacrum: Pain Intensity: 10 Generalized: Pain Intensity: 10 Neck: Pain Intensity: 10 Transfer of Care Handoff Completed per policy Notes Mental Status: alert / awake / arousable and participated in evaluation Patient Amnestic to Procedure: Yes Nausea / Vomiting: adequately controlled Pain: adequately controlled Airway Patency, RR, SpO2: stable & adequate BP & HR: stable & adequate Hydration State: stable & adequate Anesthetic Complications: no major complications apparent and Pt Satisfied with anesthetic care
--- NOTE | 2021-06-21 13:47 | History & Physical Report ---
Date of Service June 21, 2021 Assessment & Plan (1) Non-ST elevation [place] (NSTEMI): Plan: Reason Critically Ill: 55-year-old female presents to the ICU following event of acute coronary syndrome resulting in acute HFrEF with hypoxic hypercapnic respiratory failure requiring emergent intubation. Now post cardiac catheter she received a single drug-eluting stent to the proximal LAD for 90% stenosis and is also being monitored for a GIB and acute hypoxic/hypercapnic respiratory failure, likely secondary to component of acute CHF and severe underlying COPD. She is hemodynamically stable. Neuro - Seizure disordercontinue Keppra, phenytoin, primidone Polyneuropathycontinue Neurontin Patient is extensively deconditioned and requires ongoing PT, OT, and LTAC when appropriate. Appreciate case management aid with this. Cardiac - appreciate cardiology assistance Acute coronary syndromepatient presented with NSTEMI, acute HFrEF, respiratory distress -Status post successful PCI with single AKIKO to the proximal LAD for 90% stenosis -Continue ASA, plavix, atorvastatin 80, ACEI, nitrate -TTE as below Acute HFrEF-in setting of NSTEMI, as above -TTE demonstrating severe LV dysfunction with LVEF 25-30%, akinesis of inferior wall and inferior septum, hypokinesis of apex/posterinferior mixon -Transition to chlorthiazide 500mg b.i.d. x 1 day - can consider additional doses moving forward, replete K -Metoprolol tartrate 12.5mg PO t.i.d. -Continue CAD meds, as above -Continue holding home diltiazem in setting of acute HFrEF - appreciate cardiology input Prinzmetal angina - Hold diltiazem Respiratory - Acute hypoxic/hypercapnic respiratory failuresuspect large component of underlying COPD, compounded by acute CHF in setting of NSTEMI, and likely aspiration PNA -Unfortunately, 3 significant episodes of respiratory deterioration requiring intubation and mechanical ventilation Status post tracheostomy and bronchoscopy on 06/16. Consider downsizing vs. decanulation today. -Trial trach collar today, ween vent settings -Stop nebs: budesonide, formoterol -Begin Anoro (LAMA/LABA) + Pulmicort (ICS) -Diuresis as above -Continue Unasyn for presumed aspiration PNA -- will require total of 10-day course (started 06/13) -Chest percussion therapy PRN to aid with mucociliary clearance GI - GI bleedpatient with positive occult stool in the ED and multiple melanotic stools during early admission -Patient at higher risk for PUD, mesenteric ischemia given PAD and ACS on presentation -Recently admitted for anemia requiring 4U pRBC in May - did not return for outpatient endoscopy -Anemia stable on repeat labs -Protonix b.i.d. -Continue DAPT in setting of ACS -GI previously consulted - given ACS, previously recommended conservative ma nagement. Will require endoscopy once stable from recent ACS Transaminitis - Significantly elevated from admission. AST 454 / ALT 1740 today (from AST 1078 / ALT 2367 yesterday). Downtrending steadily. Likely component from congestion, but also possibly statin-induced (atorvastatin 80mg/day). Consider transitioning to alternative statin if unimproved Diet - NGT with feeds ongoing. Formal swallow eval today by SURGICAL CLINICAL REVIEWER. Continue thiamine for potential refeeding syndrome. Nutrition consulted - appreciate assistance. Stop IVF. RENAL/LYTES - Hypernatremia noted. Chlorothiazide, as above. Monitor. BUN and creatinine stable with ongoing diuresis. Replete potassium. - Foleystrict I's and O's -- adequate ENDO - No h/o DM or thyroid disease. Continue ICU hyperglycemic protocol HEME - Anemiacontributory to acute blood loss from GI bleed -Anemia, hemodynamics stable (Hgb ~9-10) -s/p 1U pRBC on 06/12 -Monitor in setting of re-initation of heparin gtt -Transfuse Hgb < 8 RUE DVT - US demonstrating "Extensive and age indeterminant nonocclusive deep venous thrombosis in the right upper extremity ... [as well as] occlusive superficial venous thrombus seen within the basilic vein." Initiated heparin gtt on 06/17 at 1100. Continue. Give warfarin 5mg x 1 today. INR 2-3 goal. ID - Chest x-ray in clinical course concerning for aspiration pneumonia. Continue Unasyn, today being day 5 of 10 (end 06/23). Gram stain from bronchoscopy negative. Await culture. LINES/IV ACCESS - Peripheral IVs, NGT, Rosas DVT PROPHYLAXIS - Heparin currently. See DVT above for current management. 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: Admission and Anticipated Discharge Date Admission Date: June 12, 2021 History of Present Illness Primary Care Provider: Humberto Mccollum DO Allergies Allergy/AdvReac Type Severity Reaction Status Date / Time bee venom protein (honey bee) Allergy Severe Anaphylaxis Verified 06/12/21 00:03 -HIVES Influenza Virus Vaccines Allergy Severe EDEMA Verified 06/13/21 09:54 AIRWAY latex Allergy Intermediate HIVES, Verified 06/12/21 00:03 BLISTERS scopolamine Allergy Unknown Unknown Verified 06/12/21 00:03 azithromycin [From Zithromax] AdvReac Severe STOMACH Verified 06/12/21 00:03 ULCERS, BLEEDING, ARRYTHMIAS dexbrompheniramine AdvReac Severe CARDIAC Verified 06/12/21 00:03 SPASMS--ALL ANTIHISTAMINES pseudoephedrine AdvReac Severe CARDIAC Verified 06/12/21 00:03 SPASMS--ALL ANTIHISTAMINES levofloxacin AdvReac Intermediate QTC Verified 06/12/21 00:03 PROLONGATION H/O VF ARREST meperidine AdvReac Intermediate NAUSEA, Verified 06/12/21 00:03 VOMITING methadone AdvReac Intermediate NAUSEA, Verified 06/12/21 00:03 VOMITING, RASH diphenhydramine AdvReac Mild "ARTERITAL Verified 06/12/21 00:03 SPASMS" COLD AdvReac Unknown VASCULAR Uncoded 06/12/21 00:03 COLLAPSE SYNDROME Home Medications Medication Instructions Recorded Confirmed Type albuterol sulfate 90 mcg/actuation 2 puff INHALATION Q4 PRN 05/15/21 06/12/21 History aerosol inhaler aspirin 81 mg tablet,delayed 81 mg PO DAILY 05/15/21 06/12/21 History release atorvastatin 80 mg tablet 80 mg PO HS 05/15/21 06/12/21 History diltiazem HCl 240 mg capsule,24 480 mg PO DAILY 05/15/21 06/12/21 History hr,extended release epinephrine 0.3 mg/0.3 mL 0.3 mg IM UD PRN 05/15/21 06/12/21 History injection, auto-injector (EpiPen) fluticasone propionate 50 2 spray INTRANASAL DAILY 05/15/21 06/12/21 History mcg/actuation nasal spray,suspension furosemide 20 mg tablet 20 mg PO DAILY 05/15/21 06/12/21 History gabapentin 600 mg tablet 600 mg PO TID 05/15/21 06/12/21 History isosorbide dinitrate 5 mg tablet 5 mg PO DIRECTED PRN 05/15/21 06/12/21 History isosorbide mononitrate 120 mg 120 mg PO AMPM 05/15/21 06/12/21 History tablet,extended release 24 hr levetiracetam 1,000 mg tablet 1,000 mg PO BID 05/15/21 06/12/21 History lisinopril 5 mg tablet 10 mg PO DAILY 05/15/21 06/12/21 History loratadine 10 mg tablet 10 mg PO DAILY 05/15/21 06/12/21 History morphine 30 mg tablet,extended 30 mg PO BID 05/15/21 06/12/21 History release oxycodone 5 mg tablet 5 mg PO Q6 PRN 05/15/21 06/12/21 History phenytoin sodium extended 100 mg 100 mg PO TID 05/15/21 06/12/21 History capsule potassium chloride 20 mEq 40 meq PO DAILY 05/15/21 06/12/21 History tablet,extended release(part/cryst) prazosin 1 mg capsule 1 mg PO BID 05/15/21 06/12/21 History protein 500 mg chewable tablet 500 mg PO DAILY 05/15/21 06/12/21 History tizanidine 4 mg tablet 4 mg PO Q8 PRN 05/15/21 06/12/21 History trazodone 50 mg tablet 100 mg PO HS 05/15/21 06/12/21 History ferrous sulfate 325 mg (65 mg 325 mg PO BIDM #60 tab 05/18/21 06/12/21 Rx iron) tablet,delayed release pantoprazole 40 mg tablet,delayed 40 mg PO BID #60 tab 05/18/21 06/12/21 Rx release acetaminophen 325 mg tablet 325 mg PO Q6H PRN 06/12/21 06/12/21 History (Tylenol) aspirin 325 mg tablet,delayed 650 mg PO BID PRN 06/12/21 06/12/21 History release gabapentin 300 mg capsule 300 mg PO TID 06/12/21 06/12/21 History guaifenesin 600 mg tablet, 600 mg PO Q12H PRN 06/12/21 06/12/21 History extended release 12 hr ondansetron HCl 4 mg tablet 4 mg PO Q8H PRN 06/12/21 06/12/21 History (Zofran) primidone 50 mg tablet 50 mg PO TID 06/12/21 06/12/21 History Past Med/Surg History Social History Smoking Status: Current every day smoker Tobacco Type: Cigarettes Second Hand Exposure: No; Do You Dip or Chew Tobacco: No; Tobacco Cessation Education Requested by Patient: No Hx Alcohol Use: No Hx Substance Use: Yes Last Used Substance: Unknown Preferred Language: Chilean Communication Ability: Unable Communication Ability Comment: Intubated Automatic Brine Mixer Operator Required: No Beliefs That Will Affect Care: None marital status: Current Living Situation: Family Other Information That Helps Us Care for You: No Feels Safe at Home: Yes Safety Concerns: Feels Safe At This Time Assistive Devices: Oxygen - Continuous Results & Data Results & Data ([facility]) Vital Signs (Past 12 Hours) Vital Signs Temp Pulse Pulse Resp BP Pulse Ox 06/21/21 11:03 37.7 C H 91 H 40 H 128/78 87 L 06/21/21 10:40 37 C 91 H 24 139/84 97 06/21/21 03:39 37.5 C 84 24 122/73 94 Code Status & VTE Plan VTE Prophylaxis Plan VTE Prophylaxis will be ordered: Yes (1) CHF (congestive heart failure) Heart failure chronicity: acute Heart failure type: unspecified Qualified C ode(s): I50.9 - Heart failure, unspecified (2) Respiratory failure with hypoxia and hypercapnia Chronicity: acute on chronic Qualified Code(s): J96.21 - Acute and chronic respiratory failure with hypoxia; J96.22 - Acute and chronic respiratory failure with hypercapnia (3) Anemia Anemia type: other cause Other causes of anemia: other cause, not classified Qualified Code(s): D64.89 - Other specified anemias (4) Syncope Syncope type: unspecified Qualified Code(s): R55 - Syncope and collapse
--- NOTE | 2021-06-21 14:06 | Critical Care Consultation ---
Date of Consultation June 21, 2021 Assessment & Plan (1) Non-ST elevation [place] (NSTEMI): Reason Critically Ill: 55-year-old female presents to the ICU following event of acute coronary syndrome resulting in acute HFrEF with hypoxic hypercapnic respiratory failure requiring emergent intubation. Now post cardiac catheter she received a single drug-eluting stent to the proximal LAD for 90% stenosis and is also being monitored for a GIB and acute hypoxic/hypercapnic respiratory failure, likely secondary to component of acute CHF and severe underlying COPD. Trach placed. PEG tube placed for severe dysphagia on 06/21. Requires ICU level care for positive pressure ventilatory management following her EGD on 06/21. Neuro - Seizure disordercontinue Keppra, phenytoin, primidone Polyneuropathycontinue Neurontin Patient is extensively deconditioned and requires ongoing PT, OT, and LTAC when appropriate. Appreciate case management aid with this. Cardiac - appreciate cardiology assistance Acute coronary syndromepatient presented with NSTEMI, acute HFrEF, respiratory distress -Status post successful PCI with single AKIKO to the proximal LAD for 90% stenosis -Hold antiplatelets in setting of EGD - resume tomorrow (ASA/Plavix) -Continue atorvastatin 80, ACEI, nitrate - managed by cardiology -TTE as below Acute HFrEF-in setting of NSTEMI, as above -TTE demonstrating severe LV dysfunction with LVEF 25-30%, akinesis of inferior wall and inferior septum, hypokinesis of apex/posterinferior mixon -Continue metoprolol -Continue CAD meds, as above Prinzmetal angina - Hold home diltiazem, cardiology following Respiratory - Hypoxic/hypercapnic respiratory insufficiencysuspect large component of underlying COPD, compounded by acute CHF in setting of NSTEMI, and likely aspiration PNA -Please see previous critical care progress note for initial history regarding this issue Tracheostomy in-place. She currently requires pressure support following placement of her PEG tube/anesthesia. Will ween as able. Will also add Lasix 40mg IV x 1. -Continue Anoro (LAMA/LABA) + Pulmicort (ICS) -Unasyn ends today (10 day course) - finish -If minimal improvement with Lasix and pressure settings, can consider additional DuoNebs / nebulizers GI - GI bleedpatient with positive occult stool in the ED and multiple melanotic stools during early admission -Patient at higher risk for PUD, mesenteric ischemia given PAD and ACS on presentation -Recently admitted for anemia requiring 4U pRBC in May - did not return for outpatient endoscopy -Anemia stable on repeat labs. Continue PPI. Careful monitoring of H&H and symptoms with ongoing anticoagulation/antiplatelet. -Will require colonoscopy once stabilized, likely as outpatient -EGD without evidence of bleeding Severe Dysphagia -Followed by STOPER. Failed swallow study. Unsafe for PO intake at this time and will require dysphagia therapy extensively -s/p PEG tube placement on 06/21. EGD without significant findings. -Hold anticoagulation/platelets today Transaminitis - Significantly improved since earlier in her course. Has nicely downtrended since last check (ALT at 522, AST 43). Likely from congestive hepatopathy. Monitor. Diet - PEG tube placed. STOPER following. Nutrition following. Appreciate recommendations for tube feeds. RENAL/LYTES - Lytes stable. Monitor. ICU replacement protocol while under train clerk care. - Foleystrict I's and O's -- adequate ENDO - No h/o DM or thyroid disease. Continue ICU hyperglycemic protocol HEME - Anemiacontributory to acute blood loss from GI bleed -Anemia, hemodynamics stable (Hgb ~9-10) -s/p 1U pRBC on 06/12 -Monitor in setting of re-initation of heparin gtt -Transfuse Hgb < 8 RUE DVT - US demonstrating "Extensive and age indeterminant nonocclusive deep venous thrombosis in the right upper extremity ... [as well as] occlusive superficial venous thrombus seen within the basilic vein." On heparin gtt. Holding day of EGD, resume tomorrow. ID - Chest x-ray in clinical course concerning for aspiration pneumonia. Continue Unasyn, today last day. LINES/IV ACCESS - Peripheral IVs, PEG, Rosas DVT PROPHYLAXIS - SCDs. Resume Hep gtt tomorrow. 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 Unfortunately, she was unable to perform safely on her swallow testing/speech exam, andas suchspeech therapy had recommended place ment of a PEG tube for long-term nutrition. The PEG tube was placed by GI today. Following this procedure and general anesthesia, patient did require increasing ventilatory pressure support via her tracheostomy. As such, train clerk was reconsulted for aid in management. Allergies Allergy/AdvReac Type Severity Reaction Status Date / Time bee venom protein (honey bee) Allergy Severe Anaphylaxis Verified 06/12/21 00:03 -HIVES Influenza Virus Vaccines Allergy Severe EDEMA Verified 06/13/21 09:54 AIRWAY latex Allergy Intermediate HIVES, Verified 06/12/21 00:03 BLISTERS scopolamine Allergy Unknown Unknown Verified 06/12/21 00:03 azithromycin [From Zithromax] AdvReac Severe STOMACH Verified 06/12/21 00:03 ULCERS, BLEEDING, ARRYTHMIAS dexbrompheniramine AdvReac Severe CARDIAC Verified 06/12/21 00:03 SPASMS--ALL ANTIHISTAMINES pseudoephedrine AdvReac Severe CARDIAC Verified 06/12/21 00:03 SPASMS--ALL ANTIHISTAMINES levofloxacin AdvReac Intermediate QTC Verified 06/12/21 00:03 PROLONGATION H/O VF ARREST meperidine AdvReac Intermediate NAUSEA, Verified 06/12/21 00:03 VOMITING methadone AdvReac Intermediate NAUSEA, Verified 06/12/21 00:03 VOMITING, RASH diphenhydramine AdvReac Mild "ARTERITAL Verified 06/12/21 00:03 SPASMS" COLD AdvReac Unknown VASCULAR Uncoded 06/12/21 00:03 COLLAPSE SYNDROME Home Medications Medication Instructions Recorded Confirmed Type albuterol sulfate 90 mcg/actuation 2 puff INHALATION Q4 PRN 05/15/21 06/12/21 History aerosol inhaler aspirin 81 mg tablet,delayed 81 mg PO DAILY 05/15/21 06/12/21 History release atorvastatin 80 mg tablet 80 mg PO HS 05/15/21 06/12/21 History diltiazem HCl 240 mg capsule,24 480 mg PO DAILY 05/15/21 06/12/21 History hr,extended release epinephrine 0.3 mg/0.3 mL 0.3 mg IM UD PRN 05/15/21 06/12/21 History injection, auto-injector (EpiPen) fluticasone propionate 50 2 spray INTRANASAL DAILY 05/15/21 06/12/21 History mcg/actuation nasal spray,suspension furosemide 20 mg tablet 20 mg PO DAILY 05/15/21 06/12/21 History gabapentin 600 mg tablet 600 mg PO TID 05/15/21 06/12/21 History isosorbide dinitrate 5 mg tablet 5 mg PO DIRECTED PRN 05/15/21 06/12/21 History isosorbide mononitrate 120 mg 120 mg PO AMPM 05/15/21 06/12/21 History tablet,extended release 24 hr levetiracetam 1,000 mg tablet 1,000 mg PO BID 05/15/21 06/12/21 History lisinopril 5 mg tablet 10 mg PO DAILY 05/15/21 06/12/21 History loratadine 10 mg tablet 10 mg PO DAILY 05/15/21 06/12/21 History morphine 30 mg tablet,extended 30 mg PO BID 05/15/21 06/12/21 History release oxycodone 5 mg tablet 5 mg PO Q6 PRN 05/15/21 06/12/21 History phenytoin sodium extended 100 mg 100 mg PO TID 05/15/21 06/12/21 History capsule potassium chloride 20 mEq 40 meq PO DAILY 05/15/21 06/12/21 History tablet,extended release(part/cryst) prazosin 1 mg capsule 1 mg PO BID 05/15/21 06/12/21 History protein 500 mg chewable tablet 500 mg PO DAILY 05/15/21 06/12/21 History tizanidine 4 mg tablet 4 mg PO Q8 PRN 05/15/21 06/12/21 History trazodone 50 mg tablet 100 mg PO HS 05/15/21 06/12/21 History ferrous sulfate 325 mg (65 mg 325 mg PO BIDM #60 tab 05/18/21 06/12/21 Rx iron) tablet,delayed release pantoprazole 40 mg tablet,delayed 40 mg PO BID #60 tab 05/18/21 06/12/21 Rx release acetaminophen 325 mg tablet 325 mg PO Q6H PRN 06/12/21 06/12/21 History (Tylenol) aspirin 325 mg tablet,delayed 650 mg PO BID PRN 06/12/21 06/12/21 History release gabapentin 300 mg capsule 300 mg PO TID 06/12/21 06/12/21 History guaifenesin 600 mg tablet, 600 mg PO Q12H PRN 06/12/21 06/12/21 History extended release 12 hr ondansetron HCl 4 mg tablet 4 mg PO Q8H PRN 06/12/21 06/12/21 History (Zofran) primidone 50 mg tablet 50 mg PO TID 06/12/21 06/12/21 History Patient History Social History Smoking Status: Current every day smoker Tobacco Type: Cigarettes Second Hand Exposure: No; Do You Dip or Chew Tobacco: No; Tobacco Cessation Education Requested by Patient: No Hx Alcohol Use: No Hx Substance Use: Yes Last Used Substance: Unknown Preferred Language: B[place]ian Communication Ability: Unable Communication Ability Comment: Intubated Director Athletic Required: No Beliefs That Will Affect Care: None marital status: Current Living Situation: Family Other Information That Helps Us Care for You: No Feels Safe at Home: Yes Safety Concerns: Feels Safe At This Time Assistive Devices: Oxygen - Continuous Review of Systems Review of Systems: Unobtainable due to trach collar in place. Patient was able to respond to basic yes/no questions, denied any pain, denied any shortness of breath, denied any belly pain. Physical Exam Physical Exam: General: Deconditioning, but otherwise well-appearing 55-year-old female who is lying back in her hospital bed, relaxed, upon my arrival. Mild diaphoretic. She is in no acute distress. HEENT: NCAT. Eyes - Sclera are white, anicteric, and without injection. PERRL. Mouth - MMM dry with no tonsillar edema or exudates. Neck - No JVD appreciated. Cardiac: Normal rate and regular rhythm; S1 and S2 present with no murmurs, rubs, or gallops. Pulmonary: Tracheostomy in place. Symmetric expansion of the chest. Lungs do demonstrate rhonchi bilaterally, most appreciable in the left Abdominal: Hypoactive bowel sounds. Abdomen was soft and nondistended. There is mild tenderness to palpation in the epigastric region. Extremities: Upper and lower extremities are warm and well perfused. Radial and dorsalis pedis pulses were 2+ b/l. Capillary refill assessed in UE was < 3 sec. No peripheral edema. Results & Data Results & Data ([facility]) Vital Signs (Past 12 Hours) Vital Signs Temp Pulse Pulse Resp BP Pulse Ox 06/21/21 11:03 37.7 C H 91 H 40 H 128/78 87 L 06/21/21 10:40 37 C 91 H 24 139/84 97 06/21/21 03:39 37.5 C 84 24 122/73 94 (1) CHF (congestive heart failure) Heart failure chronicity: acute Heart failure type: unspecified Qualified Code(s): I50.9 - Heart failure, unspecified (2) Respiratory failure with hypoxia and hypercapnia Chronicity: acute on chronic Qualified Code(s): J96.21 - Acute and chronic respiratory failure with hypoxia; J96.22 - Acute and chronic respiratory failure with hypercapnia (3) Anemia Anemia type: other cause Other causes of anemia: other cause, not classified Qualified Code(s): D64.89 - Other specified anemias (4) Syncope Syncope type: unspecified Qualified Code(s): R55 - Syncope and collapse
[2021-06-21] MEDS: SODIUM CHLORIDE 0.9% 10ML FLUSH IV SCH ×3 (14:18→21:19)
[2021-06-21] MEDS ORDERED: FUROSEMIDE 40 MG in SYRINGE 0 ML IV ONE (14:30)
[2021-06-21] MEDS ORDERED: FUROSEMIDE 40 MG/4 ML VIAL IV ONE (14:45)
[2021-06-21] MEDS: UMECLIDINIUM/VILANTEROL 62.5/25MCG 7 PUFFS/INHALER INH SCH (15:10)
[2021-06-21] MEDS: PRIMIDONE 50 MG TAB PO SCH ×3 (15:12→21:18)
[2021-06-21] MEDS: PRAZOSIN HCL 1 MG CAP PO SCH ×2 (15:12→21:17)
[2021-06-21] MEDS: lisinopril 2.5 MG TAB PO SCH (15:13)
[2021-06-21] MEDS: LORATADINE 10 MG TAB PO SCH (15:13)
[2021-06-21] MEDS: POTASSIUM CHLORIDE 20 MEQ/15 ML UDC PO SCH (15:13)
[2021-06-21] MEDS: FLUTICASONE PROPIONATE NA SPR 16 GM BTL SCH (15:13)
[2021-06-21] MEDS: METOPROLOL TARTRATE 25 MG TAB PO SCH ×3 (15:13→21:18)
[2021-06-21] MEDS: levETIRAcetam ORAL SOLN 100MG/ML PO SCH ×2 (15:13→21:17)
[2021-06-21] MEDS: GABAPENTIN 250 MG/5 ML 470 ML BTL PO SCH ×3 (15:13→21:23)
[2021-06-21] MEDS: FLUTICASONE FUROATE 100MCG 14 PUFFS/INHALER INH SCH (15:14)
[2021-06-21] MEDS: FERROUS SULFATE 325 MG/7.4 ML UDP PO SCH ×2 (15:14→15:16)
[2021-06-21] MEDS: CLOPIDOGREL BISULFATE 75 MG TAB PO SCH (15:14)
[2021-06-21] MEDS: ASPIRIN 81 MG CHEW NG SCH (15:14)
[2021-06-21 19:05] LABS: iSTAT Art Bld Gas pCO2 Correct 74 mmHg (35-46); iSTAT Art Bld Gas pH Corrected 7.267 (7.35-7.45); iSTAT Arterial Blood Gas HCO3 34 meg/L (19-24); iSTAT Arterial Blood Gas pCO2 73 mmHg (35-46); iSTAT Arterial Blood Gas pH 7.27 (7.35-7.45); iSTAT Arterial Blood Gas pO2 57 mmHg (80-95); iSTAT Arterial Blood Gas pO2 C 59; iSTAT Carbon Dioxide 36 mmol/L (24-31); iSTAT FiO2 100 %; iSTAT Hematocrit 29 % (37-47); iSTAT Hemoglobin 9.9 g/dl (12.0-16.0); iSTAT Potassium 4.6 mmol/L (3.3-5.0); iSTAT Site R Brachial; iSTAT Sodium 143 mmol/L (135-144)
--- NOTE | 2021-06-21 19:14 | XRay Report ---
XR chest 1V portable CLINICAL HISTORY: sob TECHNIQUE: Single frontal radiograph of the chest was obtained. Comparison: Comparison is made to chest one view 06/21/2021 at 0910 hours FINDINGS: Tracheostomy tube is seen. Implanted defibrillator is seen. The cardiomediastinal silhouette is obscu red and there is leftward mediastinal shift. There is complete opacification of the left hemithorax. There is a small to moderate right pleural effusion. IMPRESSION: 1. Interval development of left airspace opacity and leftward mediastinal shift likely secondary to left lung collapse. 2. Small to moderate right pleural effusion. Left effusion cannot be excluded. ACT 112: Negative or not required by law. Electronically signed by: Eber Hairston M.D. 06/21/2021 7:13 PM
--- NOTE | 2021-06-21 19:32 | Hospitalist Progress Note ---
Date of Service June 21, 2021 Assessment & Plan (1) Non-ST elevation CO (NSTEMI): Plan: ASSESSMENT AND PLAN: This is a 55-year-old female who presents with agitation, chest pain, pain all over and found to be with non-ST elevated myocardial infarction and congestive heart failure. 1. Respiratory Distress: The patient is s/p intubation and mechanical ventilation, possibly secondary to congestive heart failure, received Lasix in ER -- self extubated 06/14 -- reintubated 06/15 -- s/p trach placement 06/16 further management per [employer] service Possible Aspiration Pneumonia Continue Unasyn -- respiratory status stable overall monitor closely 2. Non-ST elevated myocardial infarction: Status post cardiac catheterization and stent to the proximal LAD lesion, post-cath care as per cardiology. Ischemic Cardiomyopathy -- s/p Cardiac Cath 06/[address] Hinojosa: 1. Severe multivessel vessel coronary artery disease -90% possibly acute proximal LAD stenosis. Patent mid LAD stent 100% chronic mid RCA occlusion. Distal vessel fills via [id number] collaterals. 2. Elevated intracardiac filling pressure. LVEDP 34 3. Severe obstructive abdominal aortic disease (unable to pass 5 Fr catheter across stenosis). 4. Successful PCI of proximal to mid LAD with single drug-eluting stent (3.0 x 18 mm Soham; postdilated with 3.5 NC, overlaps proximal aspect of prior stent). Echo: 25-30% extensive wall motion abnormalities with the inferior wall being akinetic at the base on ASA, Plavix, Imdur-->changed to Nitropaste, IV Metoprolol, Lisinopril, Lipitor on Lasix 40mg IV BID Heparin drip on hold due to pacemaker placement today GI would like Plavix and heparin drip to continue holding for 24 hours Nurse will notify cardiology to check if okay with holding Plavix for today Severe Dysphagia Failed swallow eval High risk for aspiration. Status post PEG placement performed by Dr. Aiden Norris GI recommend to hold heparin drip for 24 hours Will resume aspirin and Plavix in a.m as per GI Okay to use the PEG tube after 8 hours from the procedure 3. Anemia, possible GI bleed -- Hemoglobin was 5.4 last admission, required 4 units of PRBCs. He was started on Protonix drip, now on IV PPI BID -- Hg 8.6 today -- GI not recommending EGD/Colonoscopy due to above Right Arm DVT -- Heparin drip held today due to recent peg tub placement 4. Elevated lactic acid and acidosis: Most likely from the acute coronary syndrome and respiratory distress. -- improved 5. The patient is on chronic pain medication. Oxycodone PRN 7. History of coronary artery disease. History of LAD stenting in the past as well as vasospastic angina 8. History of VT arrest due to coronary artery vasospasm versus acquired QT prolongation possible of azithromycin exposure, status post single chamber AICD. 9. History of peripheral vascular disease, superficial femoral artery occlusion, left subclavian artery stenosis. on aspirin and Plavix. 10. History of myotonic muscular dystrophy. PT, OT when stable. 11. History of pulmonary embolism. Coumadin was discontinued due to GI bleed in 2019. 12. History of left carotid endarterectomy in 2015. 13. History of chronic obstructive pulmonary disease: Continue her home inhalers. 14. History of seizures: On Keppra and phenytoin 15. History of diastolic congestive heart failure: per above 16. History of hypertension: 17. History of deep venous thrombosis prophylaxis: Will place on sequential compression devices for now because of possible gastrointestinal bleed. 18. Underweight Disposition With need to transition to LTAC Admission and Anticipated Discharge Date Admission Date: June 12, 2021 Subjective Pt was seen and examined for follow of respiratory failure and dysphagia Lying in bed with no acute distress She said that she feels little bit better today S/P PEG tube placement done today Denies any chest pain, palpitation, dizziness and fever Review of Systems Review of Systems: All systems reviewed & are unremarkable except as noted in Subjective Physical Exam Physical Exam: General- No acute distress Head- atraumatic Eyes- PERRL, EOMI, ENT- +trach in placed Neck- supple, no JVD Lungs- clear to auscultation Heart- regular rhythm; no murmur Abdomen- normal bowel sounds, soft, nontender Extremities- no calf tenderness Neuro- alert, oriented x 3; PERRL, EOMI; no facial palsy; no dysarthria Skin- warm & dry Results & Data Results & Data ([facility]) Vital Signs (Past 12 Hours) Vital Signs Temp Pulse Pulse Pulse Resp BP Pulse Ox 06/21/21 16:00 95 H 06/21/21 14:50 95 H 32 H 97 06/21/21 13:15 96 H 28 H 92 06/21/21 11:03 37.7 C H 91 H 40 H 128/78 87 L 06/21/21 10:40 37 C 91 H 24 139/84 97 06/21/21 08:00 95 H
[2021-06-21 19:55] LABS: INR 1.1 (0.9-1.1); Prothrombin Time 10.9 Seconds (9.0-12.0)
[2021-06-21 20:16] LABS: Hematocrit (blood only) 29.3 % (37-47); Hemoglobin 8.4 g/dL (12.0-16.0); Mean Corpuscular Hgb Conc 28.7 g/dL (32-36); Mean Corpuscular Volume 94.2 fL (80-100); Mean Platelet Volume 10.6 fL (7.4-10.4); Platelet Count 272 K/uL (130-400); RDW Coefficient of Variation 20.8 % (11.5-14.5); RDW Standard Deviation 67.9 fL (36.4-46.3); Red Blood Count 3.11 M/uL (4.2-5.4); White Blood Count 13.76 K/uL (4.8-10.8)
[2021-06-21 20:18] LABS: Anisocytosis Present; Basophils # (auto) 0.02 K/uL (0-0.2); Basophils % (auto) 0.1 %; Eosinophils # (auto) 0.07 K/uL (0-0.5); Eosinophils % (auto) 0.5 %; Hypochromasia Present; Immature Granulocytes # (auto) 0.05 K/uL (0.00-0.02); Immature Granulocytes % (auto) 0.4 %; Lymphocytes # (auto) 0.79 K/uL (1.2-3.4); Lymphocytes % (auto) 5.7 %; Monocytes # (auto) 0.94 K/uL (0.11-0.59); Monocytes % (auto) 6.8 %; Neutrophils # (auto) 11.89 K/uL (1.4-6.5); Neutrophils % (auto) 86.5 %; Polychromasia 2+
[2021-06-21 20:21] LABS: BUN Creatinine Ratio 57.2 (10-20); Calcium 8.6 mg/dl (8.5-10.1); Creatinine Clr Calc Pharmacy 146.5 ml/min; Est GFR (African American) 146.8 ml/min; Est GFR (Non-African American) 126.6 ml/min; Potassium 4.4 mmol/L (3.5-5.1)
[2021-06-21 20:43] LABS: Albumin Globulin Ratio 0.5 (0.9-2); Bilirubin,Total 0.4 mg/dl (0.2-1); Globulin 3.9 gm/dl (2.5-4.0); Total Protein 5.9 gm/dl (6.4-8.2); Troponin I 0.205 ng/ml (0-0.045)
[2021-06-21] MEDS: ATORVASTATIN 40 MG TAB PO SCH (21:16)
[2021-06-21] MEDS ORDERED: fentaNYL citrate 100 MCG/2 ML VIAL ONE (22:34)
[2021-06-21] MEDS ORDERED: fentaNYL citrate 100 MCG/2 ML VIAL IV STA (22:38)
[2021-06-21] MEDS ORDERED: STAT IV Infusion **Titration per Protocol STA (22:45)
[2021-06-21] MEDS ORDERED: NOREPINEPHRINE/D5W 8 MG/508 ML BAG IV SCH (22:45)
[2021-06-21] MEDS ORDERED: NOREPINEPHRINE/D5W 8 MG/508 ML IV ONE (22:48)
[2021-06-21] MEDS ORDERED: ALBUTEROL 0.5% NEB SOLN 2.5 MG/0.5 ML VIAL NEB SCH (23:15)
[2021-06-21] MEDS: ACETYLCYSTEINE 20% INHAL SOLN 4ML ***DISPENSED BY RESP. INH SCH (23:29)
[2021-06-22] MEDS ORDERED: ALBUTEROL 0.5% NEB SOLN 2.5 MG/0.5 ML VIAL NEB SCH (01:00)
[2021-06-22] MEDS ORDERED: fentaNYL citrate 100 MCG/2 ML VIAL ONE ×2 (01:46→08:14)
[2021-06-22] MEDS: INSULIN ASPART 100 UNITS/ML 3 ML PEN SC SCH ×4 (01:52→18:04)
[2021-06-22] MEDS: TUBE FEEDING WATER FLUSH GT SCH ×6 (01:53→20:52)
[2021-06-22] MEDS ORDERED: fentaNYL citrate 100 MCG/2 ML VIAL IV STA ×2 (04:00→09:01)
[2021-06-22] MEDS: NITROGLYCERIN 2% OINTMENT 30GM TUBE EXT SCH ×4 (05:01→23:50)
[2021-06-22 05:34] LABS: Eosinophils # (auto) 0.05 K/uL (0-0.5); Eosinophils % (auto) 0.3 %; Hematocrit (blood only) 28.1 % (37-47); Hemoglobin 8.2 g/dL (12.0-16.0); Immature Granulocytes # (auto) 0.07 K/uL (0.00-0.02); Immature Granulocytes % (auto) 0.4 %; Lymphocytes # (auto) 0.84 K/uL (1.2-3.4); Lymphocytes % (auto) 4.9 %; Mean Corpuscular Hgb Conc 29.2 g/dL (32-36); Mean Corpuscular Volume 92.4 fL (80-100); Mean Platelet Volume 10.6 fL (7.4-10.4); Monocytes # (auto) 1.57 K/uL (0.11-0.59); Monocytes % (auto) 9.2 %; Neutrophils # (auto) 14.51 K/uL (1.4-6.5); Neutrophils % (auto) 85.2 %; Nucleated RBC # (auto) 0.03 K/uL (0-0); Nucleated RBC % (auto) 0.2 %; Platelet Count 294 K/uL (130-400); RDW Coefficient of Variation 21.2 % (11.5-14.5); RDW Standard Deviation 67.1 fL (36.4-46.3); Red Blood Count 3.04 M/uL (4.2-5.4); White Blood Count 17.04 K/uL (4.8-10.8)
[2021-06-22 05:51] LABS: Partial Thromboplastin Ratio 1.1; Partial Thromboplastin Time 27.9 Seconds (21.0-31.0)
[2021-06-22 06:02] LABS: BUN Creatinine Ratio 50.8 (10-20); Calcium 8.5 mg/dl (8.5-10.1); Creatinine Clr Calc Pharmacy 137.6 ml/min; Est GFR (African American) 143.8 ml/min; Magnesium 2.2 mg/dl (1.8-2.4); Potassium 3.9 mmol/L (3.5-5.1)
[2021-06-22 06:10] LABS: Anisocytosis Present; Hypochromasia Present
[2021-06-22] MEDS: lisinopril 2.5 MG TAB PO SCH (07:30)
[2021-06-22] MEDS: FLUTICASONE PROPIONATE NA SPR 16 GM BTL SCH (07:31)
[2021-06-22] MEDS: FLUTICASONE FUROATE 100MCG 14 PUFFS/INHALER INH SCH (07:31)
[2021-06-22] MEDS: METOPROLOL TARTRATE 25 MG TAB PO SCH ×3 (07:31→20:46)
[2021-06-22] MEDS: UMECLIDINIUM/VILANTEROL 62.5/25MCG 7 PUFFS/INHALER INH SCH (07:31)
[2021-06-22] MEDS ORDERED: ATROPINE SULFATE 0.1 MG/ML 10ML SYR IV ONE (07:43)
[2021-06-22] MEDS: ACETYLCYSTEINE 20% INHAL SOLN 4ML ***DISPENSED BY RESP. INH SCH ×2 (08:01→20:21)
[2021-06-22] MEDS: ALBUT/IPRATROP 3MG/0.5MG NEB 3 ML VIAL NEB PRN ×2 (08:01→20:21)
[2021-06-22] MEDS: PRAZOSIN HCL 1 MG CAP PO SCH ×2 (08:03→20:46)
[2021-06-22] MEDS: LORATADINE 10 MG TAB PO SCH (08:03)
[2021-06-22] MEDS: ASPIRIN 81 MG CHEW NG SCH (08:03)
[2021-06-22] MEDS: PRIMIDONE 50 MG TAB PO SCH ×3 (08:03→20:48)
[2021-06-22] MEDS: CLOPIDOGREL BISULFATE 75 MG TAB PO SCH (08:03)
[2021-06-22] MEDS: POTASSIUM CHLORIDE 20 MEQ/15 ML UDC PO SCH (08:03)
[2021-06-22] MEDS: levETIRAcetam ORAL SOLN 100MG/ML PO SCH ×2 (08:04→20:49)
[2021-06-22] MEDS: FERROUS SULFATE 325 MG/7.4 ML UDP PO SCH ×2 (08:04→16:51)
[2021-06-22] MEDS: THIAMINE HCL 100 MG in SYRINGE 9 ML IV SCH (08:04)
[2021-06-22] MEDS: PHENYTOIN 100 MG in SYRINGE 0 ML IV SCH ×3 (08:04→20:50)
--- NOTE | 2021-06-22 08:04 | Critical Care Progress Note ---
Date of Service June 22, 2021 Assessment & Plan (1) Non-ST elevation NE (NSTEMI): Plan: Reason Critically Ill: 55-year-old female presents to the ICU following event of acute coronary syndrome resulting in acute HFrEF with hypoxic hypercapnic respiratory failure requiring emergent intubation. Now post cardiac catheter she received a single drug-eluting stent to the proximal LAD for 90% stenosis and is also being monitored for a GIB and acute hypoxic/hypercapnic respiratory failure, likely secondary to component of acute CHF and severe underlying COPD. Trach placed. PEG tube placed for severe dysphagia on 06/21. Requires ICU level care for positive pressure ventilatory management following her EGD on 06/21. Neuro - Seizure disordercontinue Keppra, phenytoin, primidone Polyneuropathycontinue Neurontin Patient is extensively deconditioned and requires ongoing PT, OT, and LTAC when appropriate. Appreciate case management aid with this. Cardiac - appreciate cardiology assistance Acute coronary syndromepatient presented with NSTEMI, acute HFrEF, respiratory distress -Status post successful PCI with single AKIKO to the proximal LAD for 90% stenosis -Hold Plavix for several days GI following -Continue atorvastatin 80, ACEI, nitrate - managed by cardiology -TTE as below Acute HFrEF-in setting of NSTEMI, as above -TTE demonstrating severe LV dysfunction with LVEF 25-30%, akinesis of inferior wall and inferior septum, hypokinesis of apex/posterinferior mixon -Continue metoprolol -Continue CAD meds, as above Prinzmetal angina - Hold home diltiazem, cardiology following Respiratory - Hypoxic/hypercapnic respiratory insufficiencysuspect large component of underlying COPD, compounded by acute CHF in setting of NSTEMI, and likely aspiration PNA -Please see previous critical care progress note for initial history regarding this issue Tracheostomy in-place. Postop day 6 -Given that patient has significant mucoid impaction I would not decannulate and plan to change the trach at approximately 24 to 48 hours -Continue Anoro (LAMA/LABA) + Pulmicort (ICS) -Unasyn ends today (10 day course) - finish Mucoid impaction -Aggressive chest PT -Continue pressure support ventilation at this time GI - GI bleedpatient with positive occult stool in the ED and multiple melanotic stools during early admission -Patient at higher risk for PUD, mesenteric ischemia given PAD and ACS on presentation -Recently admitted for anemia requiring 4U pRBC in May - did not return for outpatient endoscopy -Anemia stable on repeat labs. Continue PPI. Careful monitoring of H&H and symptoms with ongoing anticoagulation/antiplatelet. -Will require colonoscopy once stabilized, likely as outpatient -EGD without evidence of bleeding Severe Dysphagia -Followed by [employer]CH [employer]ANGUAGE THERAPIST. Failed swallow study. Unsafe for PO intake at this time and will require dysphagia therapy extensively -s/p PEG tube placement on 06/21. EGD without significant findings. -Hold anticoagulation/platelets today Transaminitis - Significantly improved since earlier in her course. Has nicely downtrended since last check (ALT at 522, AST 43). Likely from congestive hepatopathy. Monitor. Diet - PEG tube placed. SPEECH LANGUAGE THERAPIST following. Nutrition following. Appreciate r ecommendations for tube feeds. RENAL/LYTES - Lytes stable. Monitor. ICU replacement protocol while under rn document improvement care. - Foleystrict I's and O's -- adequate ENDO - No h/o DM or thyroid disease. Continue ICU hyperglycemic protocol HEME - Anemiacontributory to acute blood loss from GI bleed -Anemia, hemodynamics stable (Hgb ~9-10) -s/p 1U pRBC on 06/12 -Monitor in setting of re-initation of heparin gtt -Transfuse Hgb < 8 RUE DVT - US demonstrating "Extensive and age indeterminant nonocclusive deep venous thrombosis in the right upper extremity ... [as well as] occlusive superficial venous thrombus seen within the basilic vein." Heparin infusion ID - Chest x-ray in clinical course concerning for aspiration pneumonia. Continue Unasyn, treated with 10-day course finishing today Febrile illness -This is in the setting of having a recent EGD uncertain etiology and significance. LINES/IV ACCESS - Peripheral IVs, PEG, Rosas DVT PROPHYLAXIS - SCDs. 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 We are going to proceed with bronchoscopy however the patient refused and she continued to saturate adequately after that point. Physical Exam Physical Exam: General: Alert. nontoxic. Skin: Warm, dry, Head: Atraumatic Ears, nose, mouth and throat: Tracheostomy present Cardiovascular: Normal peripheral perfusion Respiratory: no respiratory distress Gastrointestinal: Non distended PEG tube present Musculoskeletal: No deformity Results & Data Results & Data ([facility]) Vital Signs (Past 12 Hours) Vital Signs Temp Pulse Resp BP Pulse Ox 06/22/21 07:00 38.1 C H 100 H 34 H 91 06/22/21 06:30 38.0 C H 93 H 32 H 106/67 96 06/22/21 05:30 38.0 C H 95 H 32 H 124/68 98 06/22/21 05:00 37.9 C H 96 H 36 H 118/64 94 06/22/21 04:30 37.9 C H 96 H 32 H 116/75 90 06/22/21 04:23 91 H 28 H 100 06/22/21 04:00 37.9 C H 89 26 H 111/58 L 100 06/22/21 03:30 37.9 C H 89 25 H 108/64 99 06/22/21 03:00 37.7 C H 98 H 30 H 126/51 L 89 L 06/22/21 02:30 37.9 C H 81 22 123/69 95 06/22/21 02:00 38.0 C H 86 20 109/66 88 L 06/22/21 01:30 37.9 C H 96 H 31 H 107/69 87 L 06/22/21 01:00 37.9 C H 87 20 106/65 93 06/22/21 00:30 37.9 C H 83 23 88/58 L 99 06/22/21 00:00 37.8 C H 85 23 104/71 97 06/21/21 23:59 88 06/21/21 23:40 87 20 100 06/21/21 23:30 37.8 C H 80 20 89/63 L 100 06/21/21 23:00 37.8 C H 80 29 H 87/59 L 98 06/21/21 22:30 37.6 C H 89 36 H 98/63 L 88 L 06/21/21 22:00 37.5 C 88 33 H 99/63 L 85 L 06/21/21 21:30 37.5 C 92 H 33 H 106/61 91 06/21/21 21:00 37.5 C 94 H 31 H 117/67 87 L 06/21/21 20:30 37.4 C 90 31 H 118/85 95 06/21/21 20:00 37.2 C 86 25 H 103/64 94 Laboratory Results 06/22/21 06/22/21 06/22/21 Range/Units 06:36 05:03 04:54 WBC (4.8-10.8) K/uL RBC (4.2-5.4) M/uL Hgb (12.0-16.0) g/dL POC Hgb (12.0-16.0) g/dl Hct (37-47) % POC Hct (37-47) % MCV (80-100) fL MCH (25-34) pg MCHC (32-36) g/dL RDW Std Deviation (36.4-46.3) fL RDW Coeff of Lola (11.5-14.5) % Plt Count (130-400) K/uL MPV (7.4-10.4) fL Immature Gran % (Auto) % Neut % (Auto) % Lymph % (Auto) % [facility] % (Auto) % Eos % (Auto) % Baso % (Auto) % Neut # (Auto) (1.4-6.5) K/uL Lymph # (Auto) (1.2-3.4) K/uL [facility] # (Auto) (0.11-0.59) K/uL Eos # (Auto) (0-0.5) K/uL Baso # (Auto) (0-0.2) K/uL Immature Gran # (Auto) (0.00-0.02) K/uL Absolute Nucleated RBC (0-0) K/uL Nucleated RBC % (auto) % Polychromasia Hypochromasia Anisocytosis PT (9.0-12.0) Seconds INR (0.9-1.1) APTT (21.0-31.0) Seconds PTT Ratio Sample Site POC pH (7.35-7.45) POC pCO2 (35-46) mmHg POC pO2 (80-95) mmHg POC HCO3 (19-24) cornelio/L POC Total CO2 (24-31) mmol/L POC Base Excess (-9-1.8) cornelio/L ABG pH (Temp Correct) (7.35-7.45) ABG pCO2 (Temp Corrct (35-46) mmHg POC ABG pO2 at Pt Temp POC ABG O2 Sat (90-95) % Navdeep Test O2 Delivery Device POC O2 Rate POC FiO2 % Tidal Volume PEEP POC Sodium (135-144) mmol/L Sodium 144 (136-145) mmol/L POC Potassium (3.3-5.0) mmol/L Potassium 3.9 (3.5-5.1) mmol/L Chloride 111 H (98-107) mmol/L Carbon Dioxide 27 (21-32) mmol/L Anion Gap 6.0 (3-11) BUN 17 (7-18) mg/dl Creatinine 0.33 L (0.6-1.2) mg/dl Est Cr Clr Drug Dosing 137.6 ml/min Est GFR ( Amer) 143.8 ml/min Est GFR (Non-Af Amer) 124.0 ml/min BUN/Creatinine Ratio 50.8 H (10-20) Glucose 96 (70-99) mg/dl POC Glucose 98 (70-99) mg/dl Lactate (0.4-2.0) mmol/L Calcium 8.5 (8.5-10.1) mg/dl Phosphorus 3.0 (2.5-4.9) mg/dl Magnesium 2.2 (1.8-2.4) mg/dl Total Bilirubin (0.2-1) mg/dl AST (15-37) U/L ALT (12-78) U/L Alkaline Phosphatase (45-117) U/L Troponin I 0.180 H* (0-0.045) ng/ml Total Protein (6.4-8.2) gm/dl Albumin (3.4-5.0) gm/dl Globulin (2.5-4.0) gm/dl Albumin/Globulin Ratio (0.9-2) 10/23/21 10/23/21 10/23/21 Range/Units 04:54 04:54 01:49 WBC 17.04 H (4.8-10.8) K/uL RBC 3.04 L (4.2-5.4) M/uL Hgb 8.2 L (12.0-16.0) g/dL POC Hgb (12.0-16.0) g/dl Hct 28.1 L (37-47) % POC Hct (37-47) % MCV 92.4 (80-100) fL MCH 27.0 (25-34) pg MCHC 29.2 L (32-36) g/dL RDW Std Deviation 67.1 H (36.4-46.3) fL RDW Coeff of Lola 21.2 H (11.5-14.5) % Plt Count 294 (130-400) K/uL MPV 10.6 H (7.4-10.4) fL Immature Gran % (Auto) 0.4 % Neut % (Auto) 85.2 % Lymph % (Auto) 4.9 % [facility] % (Auto) 9.2 % Eos % (Auto) 0.3 % Baso % (Auto) 0.0 % Neut # (Auto) 14.51 H (1.4-6.5) K/uL Lymph # (Auto) 0.84 L (1.2-3.4) K/uL [facility] # (Auto) 1.57 H (0.11-0.59) K/uL Eos # (Auto) 0.05 (0-0.5) K/uL Baso # (Auto) 0.00 (0-0.2) K/uL Immature Gran # (Auto) 0.07 H (0.00-0.02) K/uL Absolute Nucleated RBC 0.03 H (0-0) K/uL Nucleated RBC % (auto) 0.2 % Polychromasia Hypochromasia Present Anisocytosis Present PT (9.0-12.0) Seconds INR (0.9-1.1) APTT 27.9 (21.0-31.0) Seconds PTT Ratio 1.1 Sample Site POC pH (7.35-7.45) POC pCO2 (35-46) mmHg POC pO2 (80-95) mmHg POC HCO3 (19-24) cornelio/L POC Total CO2 (24-31) mmol/L POC Base Excess (-9-1.8) cornelio/L ABG pH (Temp Correct) (7.35-7.45) ABG pCO2 (Temp Corrct (35-46) mmHg POC ABG pO2 at Pt Temp POC ABG O2 Sat (90-95) % Navdeep Test O2 Delivery Device POC O2 Rate POC FiO2 % Tidal Volume PEEP POC Sodium (135-144) mmol/L Sodium (136-145) mmol/L POC Potassium (3.3-5.0) mmol/L Potassium (3.5-5.1) mmol/L Chloride (98-107) mmol/L Carbon Dioxide (21-32) mmol/L Anion Gap (3-11) BUN (7-18) mg/dl Creatinine (0.6-1.2) mg/dl Est Cr Clr Drug Dosing ml/min Est GFR ( Amer) ml/min Est GFR (Non-Af Amer) ml/min BUN/Creatinine Ratio (10-20) Glucose (70-99) mg/dl POC Glucose 104 H (70-99) mg/dl Lactate (0.4-2.0) mmol/L Calcium (8.5-10.1) mg/dl Phosphorus (2.5-4.9) mg/dl Magnesium (1.8-2.4) mg/dl Total Bilirubin (0.2-1) mg/dl AST (15-37) U/L ALT (12-78) U/L Alkaline Phosphatase (45-117) U/L Troponin I (0-0.045) ng/ml Total Protein (6.4-8.2) gm/dl Albumin (3.4-5.0) gm/dl Globulin (2.5-4.0) gm/dl Albumin/Globulin Ratio (0.9-2) 06/21/21 06/21/21 06/21/21 Range/Units 19:43 19:43 19:38 WBC 13.76 H (4.8-10.8) K/uL RBC 3.11 L (4.2-5.4) M/uL Hgb 8.4 L (12.0-16.0) g/dL POC Hgb (12.0-16.0) g/dl Hct 29.3 L (37-47) % POC Hct (37-47) % MCV 94.2 (80-100) fL MCH 27.0 (25-34) pg MCHC 28.7 L (32-36) g/dL RDW Std Deviation 67.9 H (36.4-46.3) fL RDW Coeff of Lola 20.8 H (11.5-14.5) % Plt Count 272 (130-400) K/uL MPV 10.6 H (7.4-10.4) fL Immature Gran % (Auto) 0.4 % Neut % (Auto) 86.5 % Lymph % (Auto) 5.7 % [facility] % (Auto) 6.8 % Eos % (Auto) 0.5 % Baso % (Auto) 0.1 % Neut # (Auto) 11.89 H (1.4-6.5) K/uL Lymph # (Auto) 0.79 L (1.2-3.4) K/uL [facility] # (Auto) 0.94 H (0.11-0.59) K/uL Eos # (Auto) 0.07 (0-0.5) K/uL Baso # (Auto) 0.02 (0-0.2) K/uL Immature Gran # (Auto) 0.05 H (0.00-0.02) K/uL Absolute Nucleated RBC (0-0) K/uL Nucleated RBC % (auto) % Polychromasia 2+ Hypochromasia Present Anisocytosis Present PT (9.0-12.0) Seconds INR (0.9-1.1) APTT (21.0-31.0) Seconds PTT Ratio Sample Site POC pH (7.35-7.45) POC pCO2 (35-46) mmHg POC pO2 (80-95) mmHg POC HCO3 (19-24) cornelio/L POC Total CO2 (24-31) mmol/L POC Base Excess (-9-1.8) cornelio/L ABG pH (Temp Correct) (7.35-7.45) ABG pCO2 (Temp Corrct (35-46) mmHg POC ABG pO2 at Pt Temp POC ABG O2 Sat (90-95) % Navdeep Test O2 Delivery Device POC O2 Rate POC FiO2 % Tidal Volume PEEP POC Sodium (135-144) mmol/L Sodium 144 (136-145) mmol/L POC Potassium (3.3-5.0) mmol/L Potassium 4.4 (3.5-5.1) mmol/L Chloride 111 H (98-107) mmol/L Carbon Dioxide 26 (21-32) mmol/L Anion Gap 7.0 (3-11) BUN 18 (7-18) mg/dl Creatinine 0.31 L (0.6-1.2) mg/dl Est Cr Clr Drug Dosing 146.5 ml/min Est GFR ( Amer) 146.8 ml/min Est GFR (Non-Af Amer) 126.6 ml/min BUN/Creatinine Ratio 57.2 H (10-20) Glucose 95 (70-99) mg/dl POC Glucose (70-99) mg/dl Lactate 2.1 H* (0.4-2.0) mmol/L Calcium 8.6 (8.5-10.1) mg/dl Phosphorus (2.5-4.9) mg/dl Magnesium (1.8-2.4) mg/dl Total Bilirubin 0.4 (0.2-1) mg/dl AST 39 H (15-37) U/L ALT 424 H (12-78) U/L Alkaline Phosphatase 158 H (45-117) U/L Troponin I 0.205 H* (0-0.045) ng/ml Total Protein 5.9 L (6.4-8.2) gm/dl Albumin 2.0 L (3.4-5.0) gm/dl Globulin 3.9 (2.5-4.0) gm/dl Albumin/Globulin Ratio 0.5 L (0.9-2) 06/21/21 06/21/21 06/21/21 Range/Units 19:38 18:51 18:36 WBC (4.8-10.8) K/uL RBC (4.2-5.4) M/uL Hgb (12.0-16.0) g/dL POC Hgb 9.9 L (12.0-16.0) g/dl Hct (37-47) % POC Hct 29 L (37-47) % MCV (80-100) fL MCH (25-34) pg MCHC (32-36) g/dL RDW Std Deviation (36.4-46.3) fL RDW Coeff of Lola (11.5-14.5) % Plt Count (130-400) K/uL MPV (7.4-10.4) fL Immature Gran % (Auto) % Neut % (Auto) % Lymph % (Auto) % [facility] % (Auto) % Eos % (Auto) % Baso % (Auto) % Neut # (Auto) (1.4-6.5) K/uL Lymph # (Auto) (1.2-3.4) K/uL [facility] # (Auto) (0.11-0.59) K/uL Eos # (Auto) (0-0.5) K/uL Baso # (Auto) (0-0.2) K/uL Immature Gran # (Auto) (0.00-0.02) K/uL Absolute Nucleated RBC (0-0) K/uL Nucleated RBC % (auto) % Polychromasia Hypochromasia Anisocytosis PT 10.9 (9.0-12.0) Seconds INR 1.1 (0.9-1.1) APTT (21.0-31.0) Seconds PTT Ratio Sample Site R Brachial POC pH 7.27 L (7.35-7.45) POC pCO2 73 H (35-46) mmHg POC pO2 57 L (80-95) mmHg POC HCO3 34 H (19-24) cornelio/L POC Total CO2 36 H (24-31) mmol/L POC Base Excess 7.0 H (-9-1.8) cornelio/L ABG pH (Temp Correct) 7.267 L (7.35-7.45) ABG pCO2 (Temp Corrct 74 H (35-46) mmHg POC ABG pO2 at Pt Temp 59 POC ABG O2 Sat 84.0 L (90-95) % Navdeep Test NA O2 Delivery Device Ventilator POC O2 Rate 20 POC FiO2 100 % Tidal Volume 350 PEEP 5 POC Sodium 143 (135-144) mmol/L Sodium (136-145) mmol/L POC Potassium 4.6 (3.3-5.0) mmol/L Potassium (3.5-5.1) mmol/L Chloride (98-107) mmol/L Carbon Dioxide (21-32) mmol/L Anion Gap (3-11) BUN (7-18) mg/dl Creatinine (0.6-1.2) mg/dl Est Cr Clr Drug Dosing ml/min Est GFR ( Amer) ml/min Est GFR (Non-Af Amer) ml/min BUN/Creatinine Ratio (10-20) Glucose (70-99) mg/dl POC Glucose 112 H (70-99) mg/dl Lactate (0.4-2.0) mmol/L Calcium (8.5-10.1) mg/dl Phosphorus (2.5-4.9) mg/dl Magnesium (1.8-2.4) mg/dl Total Bilirubin (0.2-1) mg/dl AST (15-37) U/L ALT (12-78) U/L Alkaline Phosphatase (45-117) U/L Troponin I (0-0.045) ng/ml Total Protein (6.4-8.2) gm/dl Albumin (3.4-5.0) gm/dl Globulin (2.5-4.0) gm/dl Albumin/Globulin Ratio (0.9-2) 06/21/21 06/21/21 06/21/21 Range/Units 14:28 10:54 09:59 WBC (4.8-10.8) K/uL RBC (4.2-5.4) M/uL Hgb (12.0-16.0) g/dL POC Hgb (12.0-16.0) g/dl Hct (37-47) % POC Hct (37-47) % MCV (80-100) fL MCH (25-34) pg MCHC (32-36) g/dL RDW Std Deviation (36.4-46.3) fL RDW Coeff of Lola (11.5-14.5) % Plt Count (130-400) K/uL MPV (7.4-10.4) fL Immature Gran % (Auto) % Neut % (Auto) % Lymph % (Auto) % [facility] % (Auto) % Eos % (Auto) % Baso % (Auto) % Neut # (Auto) (1.4-6.5) K/uL Lymph # (Auto) (1.2-3.4) K/uL [facility] # (Auto) (0.11-0.59) K/uL Eos # (Auto) (0-0.5) K/uL Baso # (Auto) (0-0.2) K/uL Immature Gran # (Auto) (0.00-0.02) K/uL Absolute Nucleated RBC (0-0) K/uL Nucleated RBC % (auto) % Polychromasia Hypochromasia Anisocytosis PT (9.0-12.0) Seconds INR (0.9-1.1) APTT (21.0-31.0) Seconds PTT Ratio Sample Site POC pH (7.35-7.45) POC pCO2 (35-46) mmHg POC pO2 (80-95) mmHg POC HCO3 (19-24) cornelio/L POC Total CO2 (24-31) mmol/L POC Base Excess (-9-1.8) cornelio/L ABG pH (Temp Correct) (7.35-7.45) ABG pCO2 (Temp Corrct (35-46) mmHg POC ABG pO2 at Pt Temp POC ABG O2 Sat (90-95) % Navdeep Test O2 Delivery Device POC O2 Rate POC FiO2 % Tidal Volume PEEP POC Sodium (135-144) mmol/L Sodium 142 (136-145) mmol/L POC Potassium (3.3-5.0) mmol/L Potassium 4.8 (3.5-5.1) mmol/L Chloride 112 H (98-107) mmol/L Carbon Dioxide 27 (21-32) mmol/L Anion Gap 3.0 (3-11) BUN 13 (7-18) mg/dl Creatinine 0.25 L (0.6-1.2) mg/dl Est Cr Clr Drug Dosing 181.7 ml/min Est GFR ( Amer) > 150.0 ml/min Est GFR (Non-Af Amer) 135.9 ml/min BUN/Creatinine Ratio 53.1 H (10-20) Glucose 91 (70-99) mg/dl POC Glucose 99 107 H (70-99) mg/dl Lactate (0.4-2.0) mmol/L Calcium 8.4 L (8.5-10.1) mg/dl Phosphorus (2.5-4.9) mg/dl Magnesium (1.8-2.4) mg/dl Total Bilirubin 0.4 (0.2-1) mg/dl AST 43 H (15-37) U/L ALT 522 H (12-78) U/L Alkaline Phosphatase 162 H (45-117) U/L Troponin I (0-0.045) ng/ml Total Protein 6.0 L (6.4-8.2) gm/dl Albumin 2.1 L (3.4-5.0) gm/dl Globulin 3.9 (2.5-4.0) gm/dl Albumin/Globulin Ratio 0.5 L (0.9-2) 06/21/21 Range/Units 09:59 WBC 16.16 H (4.8-10.8) K/uL RBC 3.15 L (4.2-5.4) M/uL Hgb 8.6 L (12.0-16.0) g/dL POC Hgb (12.0-16.0) g/dl Hct 30.2 L (37-47) % POC Hct (37-47) % MCV 95.9 (80-100) fL MCH 27.3 (25-34) pg MCHC 28.5 L (32-36) g/dL RDW Std Deviation 70.0 H (36.4-46.3) fL RDW Coeff of Lola 20.6 H (11.5-14.5) % Plt Count 196 (130-400) K/uL MPV 11.0 H (7.4-10.4) fL Immature Gran % (Auto) % Neut % (Auto) % Lymph % (Auto) % [facility] % (Auto) % Eos % (Auto) % Baso % (Auto) % Neut # (Auto) (1.4-6.5) K/uL Lymph # (Auto) (1.2-3.4) K/uL [facility] # (Auto) (0.11-0.59) K/uL Eos # (Auto) (0-0.5) K/uL Baso # (Auto) (0-0.2) K/uL Immature Gran # (Auto) (0.00-0.02) K/uL Absolute Nucleated RBC 0.04 H (0-0) K/uL Nucleated RBC % (auto) 0.3 % Polychromasia Hypochromasia Anisocytosis PT (9.0-12.0) Seconds INR (0.9-1.1) APTT (21.0-31.0) Seconds PTT Ratio Sample Site POC pH (7.35-7.45) POC pCO2 (35-46) mmHg POC pO2 (80-95) mmHg POC HCO3 (19-24) cornelio/L POC Total CO2 (24-31) mmol/L POC Base Excess (-9-1.8) cornelio/L ABG pH (Temp Correct) (7.35-7.45) ABG pCO2 (Temp Corrct (35-46) mmHg POC ABG pO2 at Pt Temp POC ABG O2 Sat (90-95) % Navdeep Test O2 Delivery Device POC O2 Rate POC FiO2 % Tidal Volume PEEP POC Sodium (135-144) mmol/L Sodium (136-145) mmol/L POC Potassium (3.3-5.0) mmol/L Potassium (3.5-5.1) mmol/L Chloride (98-107) mmol/L Carbon Dioxide (21-32) mmol/L Anion Gap (3-11) BUN (7-18) mg/dl Creatinine (0.6-1.2) mg/dl Est Cr Clr Drug Dosing ml/min Est GFR ( Amer) ml/min Est GFR (Non-Af Amer) ml/min BUN/Creatinine Ratio (10-20) Glucose (70-99) mg/dl POC Glucose (70-99) mg/dl Lactate (0.4-2.0) mmol/L Calcium (8.5-10.1) mg/dl Phosphorus (2.5-4.9) mg/dl Magnesium (1.8-2.4) mg/dl Total Bilirubin (0.2-1) mg/dl AST (15-37) U/L ALT (12-78) U/L Alkaline Phosphatase (45-117) U/L Troponin I (0-0.045) ng/ml Total Protein (6.4-8.2) gm/dl Albumin (3.4-5.0) gm/dl Globulin (2.5-4.0) gm/dl Albumin/Globulin Ratio (0.9-2) Coding Level of Care Code 53545 Subseq Hosp Care Lvl 3 Diagnoses Non-ST elevation NE (NSTEMI) I21.4 CHF (congestive heart failure) I50.9 Heart failure chronicity: acute Heart failure type: unspecified GI bleed K92.2 Acidemia E87.2 Respiratory failure with hypoxia and hypercapnia J96.21; J96.22 Chronicity: acute on chronic Pacemaker Z95.0 Anemia D64.89 Anemia type: other cause Other causes of anemia: other cause, not classified Syncope R55 Syncope type: unspecified H/O diastolic dysfunction Z86.79 PAD (peripheral artery disease) I73.9 Presence of stent in LAD coronary artery Z95.5 Cellulitis L03.90 Prinzmetal angina I20.1 Postoperative deep vein thrombosis T81.89XA; I82.409 Steinert myotonic dystrophy syndrome G71.11 Mucoid impaction of bronchi T17.500A Comment Please include ventilatory management code (1) CHF (congestive heart failure) Heart failure chronicity: acute Heart failure type: unspecified Qualified Code(s): I50.9 - Heart failure, unspecified (2) Respiratory failure with hypoxia and hypercapnia Chronicity: acute on chronic Qualified Code(s): J96.21 - Acute and chronic respiratory failure with hypoxia; J96.22 - Acute and chronic respiratory failure with hypercapnia (3) Anemia Anemia type: other cause Other causes of anemia: other cause, not classified Qualified Code(s): D64.89 - Other specified anemias (4) Syncope Syncope type: unspecified Qualified Code(s): R55 - Syncope and collapse
[2021-06-22] MEDS: SODIUM CHLORIDE 0.9% 10ML FLUSH IV SCH ×3 (08:06→20:50)
[2021-06-22] MEDS: PANTOprazole 40 MG in SYRINGE 0 ML IV SCH (08:06)
[2021-06-22] MEDS: GABAPENTIN 250 MG/5 ML 470 ML BTL PO SCH ×3 (08:08→20:49)
[2021-06-22] MEDS ORDERED: MIDAZOLAM HCL 1 MG/ML 2ML VIAL ONE (08:14)
--- NOTE | 2021-06-22 08:21 | XRay Report ---
XR chest 1V portable CLINICAL HISTORY: Respiratory failure. COMPARISON STUDY: Chest radiograph June 21, 2021. FINDINGS: Tracheostomy tube is in place. There is a left subclavian pacer/AICD. Left lung aeration gaspar s significantly improved since prior exam. Persistent left mid and basilar airspace opacity is presen t. Right basilar airspace opacity has improved. There are small bilateral pleural effusions. There is no pneumothorax. Mild interstitial thickening is noted. IMPRESSION: 1. Significant interval improvement in left lung aeration. Bilateral airspace opacities, improved sin ce prior exam. 2. Small bilateral pleural effusions with probable mild pulmonary edema. 3. No pneumothorax. ACT 112: Negative or not required by law. Electronically signed by: Sergio Osman M.D. 06/22/2021 8:20 AM
[2021-06-22] MEDS ORDERED: Nursing to Pharmacy Communication SCH (08:45)
[2021-06-22] MEDS ORDERED: MIDAZOLAM HCL 1 MG/ML 2ML VIAL IV STA (09:01)
[2021-06-22] MEDS: HEPARIN SODIUM/DEXTROSE 25,000 UNITS/500 ML BAG IV SCH ×3 (09:14→15:11)
--- NOTE | 2021-06-22 13:05 | Hospitalist Progress Note ---
Date of Service June 22, 2021 Assessment & Plan (1) Non-ST elevation ME (NSTEMI): Plan: ASSESSMENT AND PLAN: This is a 55-year-old female who presents with agitation, chest pain, pain all over and found to be with non-ST elevated myocardial infarction and congestive heart failure. 1. Respiratory Distress: The patient is s/p intubation and mechanical ventilation, possibly secondary to congestive heart failure, received Lasix in ER -- self extubated 06/14, then reintubated 06/15 -- s/p trach placement 06/16 Possible Aspiration Pneumonia Completed 7 days course of Unasyn Chest x-ray last night showed significant interval improvement in left lung aeration. Bilateral airspace opacities, improved since prior exam. Small bilateral pleural effusions with probable mild pulmonary edema. Lasix IV 40 mg was given yesterday Management as per wrapper layer 2. Non-ST elevated myocardial infarction: Status post cardiac catheterization and stent to the proximal LAD lesion, post-cath care as per cardiology. Ischemic Cardiomyopathy -- s/p Cardiac Cath 06/[address] Hinojosa: 1. Severe multivessel vessel coronary artery disease -90% possibly acute proximal LAD stenosis. Patent mid LAD stent 100% chronic mid RCA occlusion. Distal vessel fills via [id number] collaterals. 2. Elevated intracardiac filling pressure. LVEDP 34 3. Severe obstructive abdominal aortic disease (unable to pass 5 Fr catheter across stenosis). 4. Successful PCI of proximal to mid LAD with single drug-eluting stent (3.0 x 18 mm [place]; postdilated with 3.5 NC, overlaps proximal aspect of prior stent). Echo with EF 25-30%. extensive wall motion abnormalities with the inferior wall being akinetic at the base on ASA, Plavix, Imdur-->changed to Nitropaste, IV Metoprolol, Lisinopril, Lipitor Heparin drip, Plavix resumed about 24 hours after Peg Placement Severe Dysphagia Failed swallow eval High risk for aspiration. Status post PEG placement performed by Dr. Aiden Norris GI recommend to hold heparin drip for 24 hours, then resumed this morning PEG tube functioning properly 3. Anemia, possible GI bleed -- Hemoglobin was 5.4 last admission, required 4 units of PRBCs. He was started on Protonix drip, now on IV PPI BID -- Hg 8.2 today -- GI not recommending EGD/Colonoscopy due to above Right Arm DVT -- Heparin drip was on hold due to recent peg tub placement -- Resumed now 4. Elevated lactic acid and acidosis: Most likely from the acute coronary syndrome and respiratory distress. -- improved 5. The patient is on chronic pain medication. Oxycodone PRN Hypotension Patient was placed on pressor last night BP stable now off Levophed continue monitor BP Continue monitor BP 7. History of coronary artery disease. History of LAD stenting in the past as well as vasospastic angina 8. History of VT arrest due to coronary artery vasospasm versus acquired QT prolongation possible of azithromycin exposure, status post single chamber AICD. 9. History of peripheral vascular disease, superficial femoral artery occlusion, left subclavian artery stenosis. on aspirin and Plavix. 10. History of myotonic muscular dystrophy. PT, OT when stable. 11. History of pulmonary embolism. Coumadin was discontinued due to GI bleed in 2019. 12. History of left carotid endarterectomy in 2015. 13. History of chronic obstructive pulmonary disease: Continue her home inhalers. 14. History of seizures: On Keppra and phenytoin 15. History of diastolic congestive heart failure: per above 16. History of hypertension: 17. History of deep venous thrombosis prophylaxis: Will place on sequential compression devices for now because of possible gastrointestinal bleed. 18. Underweight Disposition Continue monitor in ICU Admission and Anticipated Discharge Date Admission Date: June 12, 2021 Subjective Pt was seen and examined for follow of respiratory failure, dysphagia and PEG tube placement Status post day #1 PEG tube placement with no complication Lying in bed with no acute distress Last night patient was hypoxia and hypotensive Denies any chest pain, palpitation, dizziness and fever Review of Systems Review of Systems: All systems reviewed & are unremarkable except as noted in Subjective Physical Exam Physical Exam: General- No acute distress Head- atraumatic Eyes- PERRL, EOMI, ENT- +trach in placed Neck- supple, no JVD Lungs- clear to auscultation Heart- regular rhythm; no murmur Abdomen- normal bowel sounds, soft, nontender Extremities- no calf tenderness Neuro- alert, oriented x 3; PERRL, EOMI; no facial palsy; no dysarthria Skin- warm & dry Results & Data Results & Data ([facility]) Vital Signs (Past 12 Hours) Vital Signs Temp Pulse Resp BP Pulse Ox 06/22/21 08:05 96 H 35 H 99 06/22/21 08:00 103 H 06/22/21 07:00 38.1 C H 100 H 34 H 91 06/22/21 06:30 38.0 C H 93 H 32 H 106/67 96 06/22/21 05:30 38.0 C H 95 H 32 H 124/68 98 06/22/21 05:00 37.9 C H 96 H 36 H 118/64 94 06/22/21 04:30 37.9 C H 96 H 32 H 116/75 90 06/22/21 04:23 91 H 28 H 100 06/22/21 04:00 37.9 C H 89 26 H 111/58 L 100 06/22/21 03:30 37.9 C H 89 25 H 108/64 99 06/22/21 03:00 37.7 C H 98 H 30 H 126/51 L 89 L 06/22/21 02:30 37.9 C H 81 22 123/69 95 06/22/21 02:00 38.0 C H 86 20 109/66 88 L 06/22/21 01:30 37.9 C H 96 H 31 H 107/69 87 L
--- NOTE | 2021-06-22 14:04 | Electrocardiogram Report ---
Test Reason : Blood Pressure : / mmHG Vent. Rate : 094 BPM Atrial Rate : 094 BPM P-R Int : 152 ms QRS Dur : 094 ms QT Int : 338 ms P-R-T Axes : 086 074 231 degrees QTc Int : 422 ms Normal sinus rhythm Possible Left atrial enlargement T wave abnormality, consider lateral ischemia Abnormal ECG When compared with ECG of 14-JUN-2021 07:56, ST elevation now present in Anterior leads Confirmed by Hector Paige ([id number]) on 06/22/2021 2:04:46 PM Referred By: REFERRED SELF Confirmed By:Hector Paige
[2021-06-22] MEDS: oxyCODONE HCL SOLN 5 MG/5 ML UDC PO PRN ×2 (14:06→18:44)
[2021-06-22 14:12] LABS: Partial Thromboplastin Ratio 1.6; Partial Thromboplastin Time 41.1 Seconds (21.0-31.0)
[2021-06-22] MEDS: ACETAMINOPHEN SUSP 325 MG/10.15 ML UDC PEG PRN (16:51)
[2021-06-22] MEDS: ATORVASTATIN 40 MG TAB PO SCH (20:46)
[2021-06-22] MEDS: LANSOPRAZOLE 30 MG SOLTAB PEG SCH (20:49)
[2021-06-22] MEDS: THIAMINE HCL 100 MG TAB PEG SCH (20:51)
[2021-06-22] MEDS ORDERED: PROMETHAZINE HCL 12.5 MG in SODIUM CHLORIDE 0.9% 50 ML IV STA (21:11)
[2021-06-22 21:26] LABS: Partial Thromboplastin Ratio 1.7; Partial Thromboplastin Time 43.9 Seconds (21.0-31.0)
[2021-06-23] MEDS: INSULIN ASPART 100 UNITS/ML 3 ML PEN SC SCH ×4 (01:00→18:36)
[2021-06-23] MEDS: oxyCODONE HCL SOLN 5 MG/5 ML UDC PO PRN ×4 (03:14→17:17)
[2021-06-23] MEDS: TUBE FEEDING WATER FLUSH GT SCH ×6 (03:22→20:31)
[2021-06-23 04:31] LABS: Eosinophils # (auto) 0.12 K/uL (0-0.5); Eosinophils % (auto) 0.7 %; Hematocrit (blood only) 25.4 % (37-47); Hemoglobin 7.5 g/dL (12.0-16.0); Immature Granulocytes # (auto) 0.04 K/uL (0.00-0.02); Immature Granulocytes % (auto) 0.2 %; Lymphocytes % (auto) 5.2 %; Mean Corpuscular Hemoglobin 27.4 pg (25-34); Mean Corpuscular Hgb Conc 29.5 g/dL (32-36); Mean Corpuscular Volume 92.7 fL (80-100); Mean Platelet Volume 10.2 fL (7.4-10.4); Monocytes # (auto) 1.64 K/uL (0.11-0.59); Monocytes % (auto) 9.5 %; Neutrophils # (auto) 14.65 K/uL (1.4-6.5); Neutrophils % (auto) 84.4 %; Platelet Count 283 K/uL (130-400); RDW Coefficient of Variation 22.1 % (11.5-14.5); RDW Standard Deviation 70.6 fL (36.4-46.3); Red Blood Count 2.74 M/uL (4.2-5.4); White Blood Count 17.35 K/uL (4.8-10.8)
[2021-06-23 04:50] LABS: BUN Creatinine Ratio 53.8 (10-20); Blood Urea Nitrogen 14 mg/dl (7-18); Carbon Dioxide 30 mmol/L (21-32); Chloride 111 mmol/L (98-107); Creatinine Clr Calc Pharmacy 166.4 ml/min; Est GFR (African American) > 150.0 ml/min; Est GFR (Non-African American) 132.5 ml/min; Glucose 169 mg/dl (70-99); Magnesium 2.4 mg/dl (1.8-2.4); Potassium 3.9 mmol/L (3.5-5.1); Sodium 142 mmol/L (136-145)
[2021-06-23] MEDS ORDERED: ALBUT/IPRATROP 3MG/0.5MG NEB 3 ML VIAL NEB PRN (04:57)
[2021-06-23 05:01] LABS: Anisocytosis Present; Hypochromasia Present; Partial Thromboplastin Time 53.9 Seconds (21.0-31.0); Polychromasia 1+
[2021-06-23] MEDS: ALBUT/IPRATROP 3MG/0.5MG NEB 3 ML VIAL NEB PRN ×3 (05:02→19:43)
[2021-06-23] MEDS: NITROGLYCERIN 2% OINTMENT 30GM TUBE EXT SCH ×2 (05:22→13:58)
[2021-06-23] MEDS: HEPARIN SODIUM/DEXTROSE 25,000 UNITS/500 ML BAG IV SCH ×2 (05:22→18:37)
[2021-06-23] MEDS: ACETYLCYSTEINE 20% INHAL SOLN 4ML ***DISPENSED BY RESP. INH SCH ×2 (08:01→19:43)
--- NOTE | 2021-06-23 08:24 | XRay Report ---
XR chest 1V portable CLINICAL HISTORY: Respiratory failure. COMPARISON STUDY: Chest radiograph June 22, 2021. FINDINGS: Tracheostomy tube, left subclavian pacer/AICD are in place. There is no pneumothorax. Small right pleural effusion is noted. There is also a left pleural effusion. Extensive left mid and basil ar airspace opacity with volume loss has progressed. Right basilar opacity is increased. Interstitial thickening is noted. IMPRESSION: 1. Progression of extensive left lung airspace opacity with volume loss. This could reflect pneumonia or atelectasis. Bilateral pleural effusions. 2. Slight increase in right basilar opacity. 3. Interstitial thickening which favors mild pulmonary edema. ACT 112: Negative or not required by law. Electronically signed by: Sergio Osman M.D. 06/23/2021 8:23 AM
[2021-06-23] MEDS: LANSOPRAZOLE 30 MG SOLTAB PEG SCH ×2 (09:48→20:27)
[2021-06-23] MEDS: PHENYTOIN 100 MG in SYRINGE 0 ML IV SCH ×3 (09:48→20:30)
[2021-06-23] MEDS: THIAMINE HCL 100 MG TAB PEG SCH ×2 (09:48→20:28)
[2021-06-23] MEDS: GABAPENTIN 250 MG/5 ML 470 ML BTL PO SCH ×3 (09:48→20:30)
[2021-06-23] MEDS: PRIMIDONE 50 MG TAB PO SCH ×3 (09:48→20:24)
[2021-06-23] MEDS: METOPROLOL TARTRATE 25 MG TAB PO SCH ×3 (09:49→20:27)
[2021-06-23] MEDS: PRAZOSIN HCL 1 MG CAP PO SCH (10:00)
[2021-06-23] MEDS: ASPIRIN 81 MG CHEW NG SCH (10:01)
[2021-06-23] MEDS: lisinopril 2.5 MG TAB PO SCH (10:01)
[2021-06-23] MEDS: CLOPIDOGREL BISULFATE 75 MG TAB PO SCH (10:01)
[2021-06-23] MEDS: LORATADINE 10 MG TAB PO SCH (10:01)
[2021-06-23] MEDS: levETIRAcetam ORAL SOLN 100MG/ML PO SCH ×2 (10:02→20:31)
[2021-06-23] MEDS: FLUTICASONE PROPIONATE NA SPR 16 GM BTL SCH (10:02)
[2021-06-23] MEDS: FLUTICASONE FUROATE 100MCG 14 PUFFS/INHALER INH SCH (10:02)
[2021-06-23] MEDS: FERROUS SULFATE 325 MG/7.4 ML UDP PO SCH ×2 (10:05→18:37)
[2021-06-23] MEDS: SODIUM CHLORIDE 0.9% 10ML FLUSH IV SCH ×3 (10:06→20:30)
[2021-06-23] MEDS: POTASSIUM CHLORIDE 20 MEQ/15 ML UDC PO SCH (10:06)
[2021-06-23] MEDS: UMECLIDINIUM/VILANTEROL 62.5/25MCG 7 PUFFS/INHALER INH SCH (10:07)
--- NOTE | 2021-06-23 13:30 | Critical Care Progress Note ---
Date of Service June 23, 2021 Assessment & Plan (1) Non-ST elevation VT (NSTEMI): Plan: Reason Critically Ill: 55-year-old female presents to the ICU following event of acute coronary syndrome resulting in acute HFrEF with hypoxic hypercapnic respiratory failure requiring emergent intubation. Now post cardiac catheter she received a single drug-eluting stent to the proximal LAD for 90% stenosis and is also being monitored for a GIB and acute hypoxic/hypercapnic respiratory failure, likely secondary to component of acute CHF and severe underlying COPD. Trach placed. PEG tube placed for severe dysphagia on 06/21. Requires ICU level care for positive pressure ventilatory management following her EGD on 06/21. Neuro - Seizure disordercontinue Keppra, phenytoin, primidone Polyneuropathycontinue Neurontin Patient is extensively deconditioned and requires ongoing PT, OT, and LTAC. Appreciate case management aid with this. Cardiac - appreciate cardiology assistance Acute coronary syndromepatient presented with NSTEMI, acute HFrEF, respiratory distress -Status post successful PCI with single AKIKO to the proximal LAD for 90% stenosis -Hold Plavix for several days GI following -Continue atorvastatin 80, ACEI, nitrate - managed by cardiology -TTE as below Acute HFrEF-in setting of NSTEMI, as above -TTE demonstrating severe LV dysfunction with LVEF 25-30%, akinesis of inferior wall and inferior septum, hypokinesis of apex/posterinferior mixon -Continue metoprolol -Continue CAD meds, as above Prinzmetal angina - Hold home diltiazem, cardiology following Respiratory - Hypoxic/hypercapnic respiratory insufficiencysuspect large component of underlying COPD, compounded by acute CHF in setting of NSTEMI, and likely aspiration PNA -Please see previous critical care progress note for initial history regardi ng this issue Tracheostomy in-place. Postop day 7 -change tracheostomy today -Continue Anoro (LAMA/LABA) + Pulmicort (ICS) -Finish 10-day Unasyn course Mucoid impaction: Improved -Aggressive chest PT -Continue pressure support ventilation GI - GI bleedpatient with positive occult stool in the ED and multiple melanotic stools during early admission -Patient at higher risk for PUD, mesenteric ischemia given PAD and ACS on presentation -Recently admitted for anemia requiring 4U pRBC in May - did not return for outpatient endoscopy -Anemia stable on repeat labs. Continue PPI. Careful monitoring of H&H and symptoms with ongoing anticoagulation/antiplatelet. -Will require colonoscopy once stabilized, likely as outpatient -EGD without evidence of bleeding Severe Dysphagia -Followed by COTTON PROGRAM TECHNICIAN. Failed swallow study. Unsafe for PO intake at this time and will require dysphagia therapy extensively -s/p PEG tube placement on 06/21. EGD without significant findings. -Hold anticoagulation/platelets today Transaminitis - Significantly improved since earlier in her course. Has nicely downtrended since last check (ALT at 522, AST 43). Likely from congestive hepatopathy. Monitor. Diet - PEG tube placed. COTTON PROGRAM TECHNICIAN following. Nutrition following. Appreciate recommendations for tube feeds. RENAL/LYTES - Lytes stable. Monitor. ICU replacement protocol while under passport support associate care. - Foleystrict I's and O's -- adequate ENDO - No h/o DM or thyroid disease. Continue ICU hyperglycemic protocol HEME - Anemiacontributory to acute blood loss from GI bleed -Anemia, hemodynamics stable (Hgb ~9-10) -s/p 1U pRBC on 06/12 -Monitor in setting of re-initation of heparin gtt -Transfuse Hgb < 8 RUE DVT - US demonstrating "Extensive and age indeterminant nonocclusive deep venous thrombosis in the right upper extremity ... [as well as] occlusive superficial venous thrombus seen within the basilic vein." Heparin infusion -Transition to Xarelto, 15 mg BID ID - Chest x-ray in clinical course concerning for aspiration pneumonia. Finish 10-day course Unasyn Febrile illness -Cultures of remain negative question VTE driving febrile response LINES/IV ACCESS - Peripheral IVs, PEG, Rosas DVT PROPHYLAXIS - SCDs. 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 nontoxic. Skin: Warm, dry, Head: Atraumatic Ears, nose, mouth and throat: Tracheostomy present Cardiovascular: Normal peripheral perfusion Respiratory: no respiratory distress Gastrointestinal: Non distended PEG tube present Musculoskeletal: No deformity Results & Data Results & Data ([facility]) Vital Signs (Past 12 Hours) Vital Signs Temp Pulse Pulse Resp BP Pulse Ox 06/23/21 11:55 98 H 34 H 97 06/23/21 08:59 93 H 36 H 100 06/23/21 06:30 37.6 C H 91 H 28 H 154/89 H 99 06/23/21 06:00 37.6 C H 84 28 H 142/87 H 100 06/23/21 05:30 37.5 C 95 H 30 H 141/75 H 98 06/23/21 05:03 91 H 20 100 06/23/21 05:00 37.6 C H 88 26 H 124/71 100 06/23/21 04:30 37.7 C H 92 H 30 H 137/79 100 06/23/21 04:00 37.8 C H 89 24 123/75 100 06/23/21 03:49 85 24 94 06/23/21 03:30 37.4 C 98 H 35 H 125/69 96 06/23/21 03:00 37.9 C H 97 H 26 H 144/89 H 100 06/23/21 02:30 38.1 C H 98 H 26 H 148/90 H 06/23/21 02:00 38.0 C H 99 H 28 H 155/89 H 100 06/23/21 01:45 100 H 34 H 92 06/23/21 01:30 38.0 C H 97 H 41 H 108/75 88 L Coding Level of Care Code 55547 Subseq Hosp Care Lvl 3 Diagnoses Non-ST elevation VT (NSTEMI) I21.4 CHF (congestive heart failure) I50.9 Heart failure chronicity: acute Heart failure type: unspecified GI bleed K92.2 Acidemia E87.2 Respiratory failure with hypoxia and hypercapnia J96.21; J96.22 Chronicity: acute on chronic Pacemaker Z95.0 Anemia D64.89 Anemia type: other cause Other causes of anemia: other cause, not classified Syncope R55 Syncope type: unspecified H/O diastolic dysfunction Z86.79 PAD (peripheral artery disease) I73.9 Presence of stent in LAD coronary artery Z95.5 Cellulitis L03.90 Prinzmetal angina I20.1 Postoperative deep vein thrombosis T81.89XA; I82.409 Steinert myotonic dystrophy syndrome G71.11 Mucoid impaction of bronchi T17.500A (1) CHF (congestive heart failure) Heart failure chronicity: acute Heart failure type: unspecified Qualified Code(s): I50.9 - Heart failure, unspecified (2) Respiratory failure with hypoxia and hypercapnia Chronicity: acute on chronic Qualified Code(s): J96.21 - Acute and chronic respiratory failure with hypoxia; J96.22 - Acute and chronic respiratory failure with hypercapnia (3) Anemia Anemia type: other cause Other causes of anemia: other cause, not classified Qualified Code(s): D64.89 - Other specified anemias (4) Syncope Syncope type: unspecified Qualified Code(s): R55 - Syncope and collapse
[2021-06-23] MEDS: ACETAMINOPHEN SUSP 325 MG/10.15 ML UDC PEG PRN (16:15)
[2021-06-23] MEDS ORDERED: ONDANSETRON INJ 2 MG/ML 2 ML VIAL IV ONE (18:39)
[2021-06-23] MEDS ORDERED: PROMETHAZINE HCL 12.5 MG in SODIUM CHLORIDE 0.9% 50 ML IV STA (19:57)
[2021-06-23] MEDS: RIVAROXABAN 15 MG TAB PO SCH (20:24)
[2021-06-23] MEDS: ATORVASTATIN 40 MG TAB PO SCH (20:27)
[2021-06-23] MEDS ORDERED: [UNRECOGNIZED DRUG - REMARK] ONE (20:59)
--- NOTE | 2021-06-23 22:48 | Hospitalist Progress Note ---
Date of Service June 23, 2021 Assessment & Plan (1) Non-ST elevation [place] (NSTEMI): Plan: ASSESSMENT AND PLAN: This is a 55-year-old female who presents with agitation, chest pain, pain all over and found to be with non-ST elevated myocardial infarction and congestive heart failure. 1. Respiratory Distress: The patient is s/p intubation and mechanical ventilation, possibly secondary to congestive heart failure, received Lasix in ER -- self extubated 06/14, then reintubated 06/15 -- s/p trach placement 06/16 Possible Aspiration Pneumonia Completed 10 days course of Unasyn Chest x-ray last night showed significant interval improvement in left lung aeration. Bilateral airspace opacities, improved since prior exam. Small bilateral pleural effusions with probable mild pulmonary edema. Continue vent management as per automotive project engineer 2. Non-ST elevated myocardial infarction: Status post cardiac catheterization and stent to the proximal LAD lesion, post-cath care as per cardiology. Ischemic Cardiomyopathy -- s/p Cardiac Cath 06/[address] Hinojosa: 1. Severe multivessel vessel coronary artery disease -90% possibly acute proximal LAD stenosis. Patent mid LAD stent 100% chronic mid RCA occlusion. Distal vessel fills via [id number] collaterals. 2. Elevated intracardiac filling pressure. LVEDP 34 3. Severe obstructive abdominal aortic disease (unable to pass 5 Fr catheter across stenosis). 4. Successful PCI of proximal to mid LAD with single drug-eluting stent (3.0 x 18 mm [place]; postdilated with 3.5 NC, overlaps proximal aspect of prior stent). Echo with EF 25-30%. extensive wall motion abnormalities with the inferior wall being akinetic at the base on ASA, Plavix, Imdur-->changed to Nitropaste, IV Metoprolol, Lisinopril, Lipitor Heparin drip, Plavix resumed about 24 hours after Peg Placement Severe Dysphagia Failed swallow eval High risk for aspiration. Status post PEG placement performed by Dr. Aiden Norris GI recommend to hold heparin drip for 24 hours, then resumed this morning PEG tube functioning properly 3. Anemia, possible GI bleed -- Hemoglobin was 5.4 last admission, required 4 units of PRBCs. He was started on Protonix drip, now on IV PPI BID -- Hg 8.2 today -- GI not recommending EGD/Colonoscopy due to above Right Arm DVT -- Heparin drip was on hold due to recent peg tub placement -- Resumed now 4. Elevated lactic acid and acidosis: Most likely from the acute coronary syndrome and respiratory distress. -- improved 5. The patient is on chronic pain medication. Oxycodone PRN Hypotension Patient was placed on pressor last night BP stable now off Levophed continue monitor BP Continue monitor BP 7. History of coronary artery disease. History of LAD stenting in the past as well as vasospastic angina 8. History of VT arrest due to coronary artery vasospasm versus acquired QT prolongation possible of azithromycin exposure, status post single chamber AICD. 9. History of peripheral vascular disease, superficial femoral artery occlusion, left subclavian artery stenosis. on aspirin and Plavix. 10. History of myotonic muscular dystrophy. PT, OT when stable. 11. History of pulmonary embolism. Coumadin was discontinued due to GI bleed in 2019. 12. History of left carotid endarterectomy in 2015. 13. History of chronic obstructive pulmonary disease: Continue her home inhalers. 14. History of seizures: On Keppra and phenytoin 15. History of diastolic congestive heart failure: per above 16. History of hypertension: 17. History of deep venous thrombosis prophylaxis: Will place on sequential compression devices for now because of possible gastrointestinal bleed. 18. Underweight Disposition Continue monitor in ICU Admission and Anticipated Discharge Date Admission Date: June 12, 2021 Subjective Pt was seen and examined for follow of respiratory failure, dysphagia and PEG tube placement Status post day #2 PEG tube placement with no complication Continue to require vent support Patient said that she feels ok Denies any chest pain, palpitation, dizziness Review of Systems Review of Systems: All systems reviewed & are unremarkable except as noted in Subjective Physical Exam Physical Exam: General- No acute distress Head- atraumatic Eyes- PERRL, EOMI, ENT- +trach in placed Neck- supple, no JVD Lungs- clear to auscultation Heart- regular rhythm; no murmur Abdomen- normal bowel sounds, soft, nontender Extremities- no calf tenderness Neuro- alert, oriented x 3; PERRL, EOMI; no facial palsy; no dysarthria Skin- warm & dry Results & Data Results & Data ([facility]) Vital Signs (Past 12 Hours) Vital Signs Temp Pulse Resp BP Pulse Ox 06/23/21 20:05 86 24 97 06/23/21 18:00 38.0 C H 88 24 94/42 L 95 06/23/21 17:30 38.1 C H 90 24 99 06/23/21 17:00 38.3 C H 88 28 H 97/60 L 99 06/23/21 16:30 38.3 C H 88 29 H 98 06/23/21 16:00 38.2 C H 91 H 32 H 95 06/23/21 15:30 38.3 C H 86 29 H 93 06/23/21 15:00 38.2 C H 89 26 H 105/55 L 94 06/23/21 14:57 92 H 30 H 97 06/23/21 14:30 38.0 C H 87 28 H 89 L 06/23/21 14:00 37.8 C H 92 H 27 H 97 06/23/21 13:30 37.9 C H 95 H 31 H 97 06/23/21 13:00 38.1 C H 97 H 31 H 93 06/23/21 12:30 38.1 C H 99 H 34 H 96 06/23/21 12:00 37.8 C H 100 H 30 H 122/68 100 06/23/21 11:55 98 H 34 H 97 06/23/21 11:30 37.7 C H 98 H 27 H 100 06/23/21 11:00 38.3 C H 96 H 35 H 100
[2021-06-24] MEDS: INSULIN ASPART 100 UNITS/ML 3 ML PEN SC SCH ×4 (00:15→17:29)
[2021-06-24] MEDS: oxyCODONE HCL SOLN 5 MG/5 ML UDC PO PRN ×5 (01:09→20:35)
[2021-06-24] MEDS: TUBE FEEDING WATER FLUSH GT SCH ×6 (01:10→20:36)
[2021-06-24 05:00] LABS: Basophils # (auto) 0.02 K/uL (0-0.2); Basophils % (auto) 0.1 %; Eosinophils # (auto) 0.13 K/uL (0-0.5); Hematocrit (blood only) 24.1 % (37-47); Hemoglobin 7.2 g/dL (12.0-16.0); Immature Granulocytes # (auto) 0.05 K/uL (0.00-0.02); Immature Granulocytes % (auto) 0.4 %; Lymphocytes # (auto) 0.86 K/uL (1.2-3.4); Lymphocytes % (auto) 6.3 %; Mean Corpuscular Hemoglobin 27.9 pg (25-34); Mean Corpuscular Hgb Conc 29.9 g/dL (32-36); Mean Corpuscular Volume 93.4 fL (80-100); Mean Platelet Volume 10.1 fL (7.4-10.4); Monocytes # (auto) 1.17 K/uL (0.11-0.59); Monocytes % (auto) 8.6 %; Neutrophils # (auto) 11.45 K/uL (1.4-6.5); Neutrophils % (auto) 83.6 %; Nucleated RBC # (auto) 0.06 K/uL (0-0); Nucleated RBC % (auto) 0.5 %; Platelet Count 283 K/uL (130-400); RDW Coefficient of Variation 22.7 % (11.5-14.5); RDW Standard Deviation 75.1 fL (36.4-46.3); Red Blood Count 2.58 M/uL (4.2-5.4); White Blood Count 13.68 K/uL (4.8-10.8)
[2021-06-24 05:14] LABS: Partial Thromboplastin Ratio 1.2; Partial Thromboplastin Time 31.5 Seconds (21.0-31.0)
[2021-06-24 05:19] LABS: Albumin Level 1.8 gm/dl (3.4-5.0); BUN Creatinine Ratio 56.2 (10-20); Bilirubin Direct 0.2 mg/dl (0-0.2); Calcium 8.1 mg/dl (8.5-10.1); Creatinine Clr Calc Pharmacy 144.3 ml/min; Est GFR (African American) 146.8 ml/min; Est GFR (Non-African American) 126.6 ml/min; Magnesium 2.4 mg/dl (1.8-2.4); Potassium 4.2 mmol/L (3.5-5.1)
[2021-06-24 05:22] LABS: Bilirubin,Total 0.4 mg/dl (0.2-1); Total Protein 5.7 gm/dl (6.4-8.2)
[2021-06-24 05:55] LABS: Anisocytosis Present; Polychromasia 1+
[2021-06-24] MEDS: ACETYLCYSTEINE 20% INHAL SOLN 4ML ***DISPENSED BY RESP. INH SCH ×2 (07:37→20:22)
[2021-06-24] MEDS: ALBUT/IPRATROP 3MG/0.5MG NEB 3 ML VIAL NEB PRN ×2 (07:37→20:22)
[2021-06-24] MEDS: LORATADINE 10 MG TAB PO SCH (08:25)
[2021-06-24] MEDS: lisinopril 2.5 MG TAB PO SCH (08:25)
[2021-06-24] MEDS: RIVAROXABAN 15 MG TAB PO SCH ×2 (08:26→20:39)
[2021-06-24] MEDS: THIAMINE HCL 100 MG TAB PEG SCH ×2 (08:26→20:43)
[2021-06-24] MEDS: CLOPIDOGREL BISULFATE 75 MG TAB PO SCH (08:26)
[2021-06-24] MEDS: METOPROLOL TARTRATE 25 MG TAB PO SCH ×3 (08:26→20:41)
[2021-06-24] MEDS: LANSOPRAZOLE 30 MG SOLTAB PEG SCH ×2 (08:26→20:38)
[2021-06-24] MEDS: PRIMIDONE 50 MG TAB PO SCH ×3 (08:26→20:34)
[2021-06-24] MEDS: ASPIRIN 81 MG CHEW NG SCH (08:26)
[2021-06-24] MEDS: GABAPENTIN 250 MG/5 ML 470 ML BTL PO SCH ×3 (08:28→20:33)
[2021-06-24] MEDS: FLUTICASONE PROPIONATE NA SPR 16 GM BTL SCH (08:28)
[2021-06-24] MEDS: POTASSIUM CHLORIDE 20 MEQ/15 ML UDC PO SCH (08:29)
[2021-06-24] MEDS: FLUTICASONE FUROATE 100MCG 14 PUFFS/INHALER INH SCH (08:29)
[2021-06-24] MEDS: FERROUS SULFATE 325 MG/7.4 ML UDP PO SCH ×2 (08:30→17:22)
[2021-06-24] MEDS: SODIUM CHLORIDE 0.9% 10ML FLUSH IV SCH ×3 (08:30→20:34)
[2021-06-24] MEDS: UMECLIDINIUM/VILANTEROL 62.5/25MCG 7 PUFFS/INHALER INH SCH (08:30)
--- NOTE | 2021-06-24 08:35 | XRay Report ---
SINGLE VIEW CHEST CLINICAL HISTORY: Respiratory failure FINDINGS: An AP, portable, upright chest radiograph is compared to study dated 06/23/2021. A single l ead cardiac AICD and a tracheostomy are unchanged in position. The heart is enlarged noting atheroscl erotic calcification of the thoracic aorta. There is pulmonary vascular congestion. There is a layeri ng left pleural effusion with dense left basilar consolidation. Trace pleural effusion is seen on the right, and there are multifocal airspace opacities. No pneumothorax is seen. The skeletal structures are osteopenic. The bony thorax is grossly intact. A gastrostomy tube is noted in the left upper annette drant. IMPRESSION: 1. Cardiomegaly and AICD with evidence of congestive failure. 2. Multifocal airspace opacities are similar to yesterday and could represent pulmonary edema and/or multifocal pneumonia. Clinical correlation will be required and radiographic follow-up to resolution is recommended. 3. Left larger right pleural effusions with bibasilar consolidation. ACT 112: Negative or not required by law. Electronically signed by: Jhonny Brewster M.D. 06/24/2021 8:33 AM
--- NOTE | 2021-06-24 08:42 | Critical Care Progress Note ---
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 Now post cardiac catheter she received a single drug-eluting stent to the proximal LAD for 90% stenosis and is also being monitored for a GIB and acute hypoxic/hypercapnic respiratory failure, likely secondary to component of acute CHF and severe underlying COPD. She is hemodynamically stable. Recommendations: Neuro -continue Keppra, phenytoin, primidone. Continue Neurontin for her peripheral neuropathy. She is profoundly deconditioned and will require aggressive therapy PT OT and likely long-term acute care rehab. Will need to go to an LTAC. Cardiac -status post ST elevation ND with drug-eluting stent to the proximal LAD. Continue aspirin, Plavix, Lipitor and HAILEY inhibitor, metoprolol 12.5 mg 3 times daily. Appreciate cardiology assistance. Hemodynamically stable. Continue gentle Lasix as tolerated. History of Prinzmetal's angina, but holding nitrates and calcium channel blockers currently. Echo from 06/12/2021 with an EF of 25 to 30%. Moderate tricuspid regurg. RVSP 40 to 50 mmHg. Extensive wall motion abnormalities of the left ventricle. Respiratory -presumptive history of COPD. Continue Incruse Ellipta. Required multiple intubations and currently is trached. Status post tracheostomy 06/16/2021. Tolerating pressure support trials. Will consider trach collar trials. We will obtain a CT chest given the left lower lobe opacity on cxr. Co nsider diagnostic and therapeutic thoracentesis if effusion is noted. Initiate vest percussive therapy 4 times daily given recurrent mucous plugging. Will initiate hypertonic saline. Continue Mucomyst twice daily. GI -status post EGD 06/21/2021. No obvious bleeding. PEG tube placed and receiving tube feeds via PEG tube at this time. Transaminitis improving. Likely related to shock liver. He has a prior history of aspiration. RENAL/LYTES -no significant issues at present. Urine output remains adequate. 4 L positive since admission. - Foleystrict I's and O's ENDO -glycemic control per protocol HEME -continues to be anemic. Likely combination of GI bleed and frequent blood draws. She also likely has a component of anemia of chronic disease. Currently on Xarelto 15 mg twice daily due to an extensive nonocclusive DVT noted in the right upper extremity. Occlusive superficial venous thrombus is seen within the basilic vein. This is based on ultrasound from 06/17/2021. ID -Patient continues to spike low-grade temperatures which may be related to her DVT. She does have edema left lower lobe opacity. We will obtain a CT chest and evaluate for empyema or necrotizing pneumonia. Bronchoscopy cultures from 06/16/2021 growing Adrianne albicans. Likely contaminant. Urine cultures with lactobacillus species. We will repeat a urinalysis, blood cultures, procalcitonin. Will initiate cefepime 06/24/2021. MRSA screen ordered. Prior MRSA screen is negative. LINES/IV ACCESS - Peripheral IVs. Access is limited due to patient's severe peripheral vascular disease. DVT PROPHYLAXIS - SCDs, Xarelto. CRITICAL CARE TIME - I have personally spent 37 minutes of critical care time in the direct management of this patient. This is a life/limb threatening event. This includes time spent evaluating patient, direct bedside care, chart review, placing orders, interpretation of diagnostic studies, discussion with consultants, patient, and family members, as well as other required patient management activities. This time is exclusive of all separately billable procedures, and teaching time and separate from and in addition to any other critical care service time. Admission and Anticipated Discharge Date Admission Date: June 12, 2021 Subjective Patient seen and examined this morning. No significant overnight events. Continues with low-grade fevers of 100.8 F. Hemodynamically stable. Tolerating pressure support trials. Review of Systems Review of Systems: Limited as the patient is trached. She is requesting pain medications. Physical Exam Physical Exam: General: Alert. nontoxic. Skin: Warm, dry, Head: Atraumatic Ears, nose, mouth and throat: Tracheostomy present Cardiovascular: Regular rate and rhythm. No murmurs. Normal peripheral perfusion Respiratory: no respiratory distress Gastrointestinal: Non distended PEG tube present Musculoskeletal: No deformity Results & Data Results & Data ([facility]) Vital Signs (Past 12 Hours) Vital Signs Temp Pulse Resp BP Pulse Ox 06/24/21 07:27 96 H 32 H 95 06/24/21 06:30 100.8 F H 94 H 34 H 120/69 95 06/24/21 06:00 100.8 F H 97 H 30 H 123/68 90 06/24/21 05:30 100.8 F H 95 H 29 H 123/68 90 06/24/21 05:00 100.8 F H 96 H 28 H 119/72 88 L 06/24/21 04:30 100.6 F H 96 H 27 H 127/76 93 06/24/21 04:10 87 32 H 92 06/24/21 04:00 100.2 F H 93 H 33 H 111/66 91 06/24/21 03:30 100.4 F H 96 H 34 H 111/63 95 06/24/21 03:00 100.6 F H 93 H 32 H 118/61 100 06/24/21 02:30 100.2 F H 93 H 28 H 120/68 91 06/24/21 02:00 100.4 F H 87 29 H 98/57 L 100 06/24/21 01:30 100.6 F H 93 H 32 H 111/56 L 95 06/24/21 01:00 100.6 F H 94 H 32 H 118/59 L 93 06/24/21 00:30 100.4 F H 92 H 28 H 99/63 L 100 06/24/21 00:00 100.2 F H 83 30 H 76/53 L 97 06/23/21 23:59 92 H 06/23/21 23:56 83 29 H 98 06/23/21 23:30 100.6 F H 91 H 30 H 103/54 L 95 06/23/21 23:00 100.4 F H 88 25 H 128/83 97 06/23/21 22:30 100.2 F H 79 30 H 98/57 L 93 06/23/21 22:00 100.0 F H 79 26 H 120/63 95 06/23/21 21:30 99.7 F H 81 26 H 102/60 94 06/23/21 21:00 99.5 F 83 27 H 97/54 L 91 Vital signs, labs and imaging reviewed. Chest x-ray with persistent left lower lobe opacity. Coding Level of Care Code Critical Care 1st 30-74 mins Diagnoses Non-ST elevation ND (NSTEMI) I21.4 CHF (congestive heart failure) I50.9 Heart failure chronicity: acute Heart failure type: unspecified GI bleed K92.2 Acidemia E87.2 Respiratory failure with hypoxia and hypercapnia J96.21; J96.22 Chronicity: acute on chronic Pacemaker Z95.0 Anemia D64.89 Anemia type: other cause Other causes of anemia: other cause, not classified Syncope R55 Syncope type: unspecified H/O diastolic dysfunction Z86.79 PAD (peripheral artery disease) I73.9 Presence of stent in LAD coronary artery Z95.5 Cellulitis L03.90 Prinzmetal angina I20.1 Postoperative deep vein thrombosis T81.89XA; I82.409 Steinert myotonic dystrophy syndrome G71.11 Mucoid impaction of bronchi T17.500A Tracheostomy dependence Z93.0 Time Spent (min) 37 (1) CHF (congestive heart failure) Heart failure chronicity: acute Heart failure type: unspecified Qualified Code(s): I50.9 - Heart failure, unspecified (2) Respiratory failure with hypoxia and hypercapnia Chronicity: acute on chronic Qualified Code(s): J96.21 - Acute and chronic respiratory failure with hypoxia; J96.22 - Acute and chronic respiratory failure with hypercapnia (3) Anemia Anemia type: other cause Other causes of anemia: other cause, not classified Qualified Code(s): D64.89 - Other specified anemias (4) Syncope Syncope type: unspecified Qualified Code(s): R55 - Syncope and collapse
[2021-06-24] MEDS ORDERED: CEFEPIME CONSULT ACTIVE ONE (08:44)
[2021-06-24] MEDS: PHENYTOIN 100 MG in SYRINGE 0 ML IV SCH ×3 (08:49→20:32)
[2021-06-24] MEDS: levETIRAcetam ORAL SOLN 100MG/ML PO SCH ×2 (08:49→20:33)
--- NOTE | 2021-06-24 09:13 | Cardiology Progress Note ---
Date of Service June 24, 2021 Assessment & Plan (1) Respiratory failure with hypoxia and hypercapnia: (2) Non-ST elevation ID (NSTEMI): (3) ACS (acute coronary syndrome): (4) GI bleed: (5) DVT (deep venous thrombosis): Plan: Patient is an extremely complex 55-year-old female with recent clinical course notable for presentation with syncope and profound anemia. She presents this admission in acute respiratory distress and congestive heart failure secondary to myocardial ischemia. Recent history of GI bleed Patient underwent emergent cardiac catheterization study demonstrating right coronary occlusion and high-grade proximal LAD stenosis successfully intervened on with drug-eluting stent. LV systolic function severely impaired on follow-up echocardiogram. Patient's history is notable for vasospastic angina, chronic coronary artery disease and significant peripheral vascular disease in addition to above issues The patient has had a complicated clinical course. She remains hemodynamically stable with support. Critical care's note is appreciated. Admission and Anticipated Discharge Date Admission Date: June 12, 2021 Subjective No current cardiac complaints Review of Systems Review of Systems: Not obtainable Physical Exam Physical Exam: General: no acute distress and stated age Head: normocephalic, no masses, lesions, tenderness or abnormalities Eyes: conjunctiva are pink and non-injected, sclera clear Neck: Tracheostomy Chest: normal shape and normal respiratory effort Lungs: clear to auscultation and percussion Cardiac Exam: - regular rate & rhythm, no murmurs gallops or rubs - normal S1, normal S2 Pulses: 2(+) throughout Abdomen: abdomen soft, non-tender, no abnormal masses and no hepatosplenomegaly Musculoskeletal: no gait disturbance, no joint inflammation, no deforming arthritis Extremities: no edema and no cyanosis Neuro: grossly normal exam Results & Data ([facility]) Vital Signs (Past 12 Hours) Vital Signs Temp Pulse Resp BP Pulse Ox 06/24/21 09:00 38.4 C H 93 H 32 H 96 06/24/21 08:30 38.3 C H 98 H 40 H 93 06/24/21 08:00 38.1 C H 94 H 39 H 92 06/24/21 07:30 38.2 C H 96 H 35 H 94 06/24/21 07:27 96 H 32 H 95 06/24/21 07:00 38.2 C H 96 H 34 H 91 06/24/21 06:30 38.2 C H 94 H 34 H 120/69 95 06/24/21 06:00 38.2 C H 97 H 30 H 123/68 90 06/24/21 05:30 38.2 C H 95 H 29 H 123/68 90 06/24/21 05:00 38.2 C H 96 H 28 H 119/72 88 L 06/24/21 04:30 38.1 C H 96 H 27 H 127/76 93 06/24/21 04:10 87 32 H 92 06/24/21 04:00 37.9 C H 93 H 33 H 111/66 91 06/24/21 03:30 38.0 C H 96 H 34 H 111/63 95 06/24/21 03:00 38.1 C H 93 H 32 H 118/61 100 06/24/21 02:30 37.9 C H 93 H 28 H 120/68 91 06/24/21 02:00 38.0 C H 87 29 H 98/57 L 100 06/24/21 01:30 38.1 C H 93 H 32 H 111/56 L 95 06/24/21 01:00 38.1 C H 94 H 32 H 118/59 L 93 06/24/21 00:30 38.0 C H 92 H 28 H 99/63 L 100 06/24/21 00:00 37.9 C H 83 30 H 76/53 L 97 06/23/21 23:59 92 H 06/23/21 23:56 83 29 H 98 06/23/21 23:30 38.1 C H 91 H 30 H 103/54 L 95 06/23/21 23:00 38.0 C H 88 25 H 128/83 97 06/23/21 22:30 37.9 C H 79 30 H 98/57 L 93 06/23/21 22:00 37.8 C H 79 26 H 120/63 95 06/23/21 21:30 37.6 C H 81 26 H 102/60 94 Laboratory Results Laboratory Results - last 24 hr 06/23/21 06/23/21 06/24/21 12:58 18:15 00:12 WBC RBC Hgb Hct MCV MCH MCHC RDW Std Deviation RDW Coeff of Lola Plt Count MPV Immature Gran % (Auto) Neut % (Auto) Lymph % (Auto) [place] % (Auto) Eos % (Auto) Baso % (Auto) Neut # (Auto) Lymph # (Auto) [place] # (Auto) Eos # (Auto) Baso # (Auto) Immature Gran # (Auto) Absolute Nucleated RBC Nucleated RBC % (auto) Polychromasia Anisocytosis APTT PTT Ratio Sodium Potassium Chloride Carbon Dioxide Anion Gap BUN Creatinine Est Cr Clr Drug Dosing Est GFR ( Amer) Est GFR (Non-Af Amer) BUN/Creatinine Ratio Glucose POC Glucose 162 H 156 H 128 H Calcium Phosphorus Magnesium Total Bilirubin Direct Bilirubin AST ALT Alkaline Phosphatase Total Protein Albumin 06/24/21 06/24/21 06/24/21 04:48 04:48 04:48 WBC 13.68 H RBC 2.58 L Hgb 7.2 L Hct 24.1 L MCV 93.4 MCH 27.9 MCHC 29.9 L RDW Std Deviation 75.1 H RDW Coeff of Lola 22.7 H Plt Count 283 MPV 10.1 Immature Gran % (Auto) 0.4 Neut % (Auto) 83.6 Lymph % (Auto) 6.3 [place] % (Auto) 8.6 Eos % (Auto) 1.0 Baso % (Auto) 0.1 Neut # (Auto) 11.45 H Lymph # (Auto) 0.[address] [place] # (Auto) 1.17 H Eos # (Auto) 0.13 Baso # (Auto) 0.02 Immature Gran # (Auto) 0.05 H Absolute Nucleated RBC 0.06 H Nucleated RBC % (auto) 0.5 Polychromasia 1+ Anisocytosis Present APTT 31.5 H PTT Ratio 1.2 Sodium 142 Potassium 4.2 Chloride 110 H Carbon Dioxide 28 Anion Gap 4.0 BUN 17 Creatinine 0.31 L Est Cr Clr Drug Dosing 144.3 Est GFR ( Amer) 146.8 Est GFR (Non-Af Amer) 126.6 BUN/Creatinine Ratio 56.2 H Glucose 131 H POC Glucose Calcium 8.1 L Phosphorus 3.0 Magnesium 2.4 Total Bilirubin 0.4 Direct Bilirubin 0.2 AST 22 ALT 182 H Alkaline Phosphatase 124 H Total Protein 5.7 L Albumin 1.8 L 06/24/21 08:33 WBC RBC Hgb Hct MCV MCH MCHC RDW Std Deviation RDW Coeff of Lola Plt Count MPV Immature Gran % (Auto) Neut % (Auto) Lymph % (Auto) [place] % (Auto) Eos % (Auto) Baso % (Auto) Neut # (Auto) Lymph # (Auto) [place] # (Auto) Eos # (Auto) Baso # (Auto) Immature Gran # (Auto) Absolute Nucleated RBC Nucleated RBC % (auto) Polychromasia Anisocytosis APTT PTT Ratio Sodium Potassium Chloride Carbon Dioxide Anion Gap BUN Creatinine Est Cr Clr Drug Dosing Est GFR ( Amer) Est GFR (Non-Af Amer) BUN/Creatinine Ratio Glucose POC Glucose 126 H Calcium Phosphorus Magnesium Total Bilirubin Direct Bilirubin AST ALT Alkaline Phosphatase Total Protein Albumin Medications Administered Current Inpatient Medications Acetaminophen (Acetaminophen Susp 325 Mg/10.15 Ml Udc) 650 mg PEG Q6H PRN PRN Reason: pain/fever Stop: 07/20/21 00:56 Last Admin: 06/23/21 16:15 Dose: 650 mg Documented by: Acetylcysteine (Acetylcysteine 20% Inhal Soln 4ml Dispensed By Resp.) 4 ml INH BIDR DENISSE Stop: 07/21/21 23:14 Last Admin: 06/24/21 07:37 Dose: 4 ml Documented by: Albuterol (Albut/Ipratrop 3mg/0.5mg Neb 3 Ml Vial) 3 ml NEB Q4R PRN PRN Reason: Wheezing Stop: 07/13/21 10:59 Last Admin: 06/24/21 07:37 Dose: 3 ml Documented by: Aspirin (Aspirin 81 Mg Chew) 81 mg NG DAILY DENISSE Stop: 07/13/21 16:14 Last Admin: 06/24/21 08:26 Dose: 81 mg Documented by: Atorvastatin Calcium (Atorvastatin 40 Mg Tab) 80 mg PO HS DENISSE Stop: 07/12/21 20:59 Last Admin: 06/23/21 20:27 Dose: 80 mg Documented by: Clopidogrel Bisulfate (Clopidogrel Bisulfate 75 Mg Tab) 75 mg PO QAM DENISSE Stop: 07/13/21 16:14 Last Admin: 06/24/21 08:26 Dose: 75 mg Documented by: Enteral Nutritional Formula (Peptamen 1.5 Armando 1,000 Ml Bag) 1,000 ml GT UD DENISSE; Protocol Stop: 07/15/21 13:29 Last Admin: 06/20/21 13:02 Dose: 1,000 ml Documented by: Epinephrine HCl (Epinephrine Inj 1 Mg/Ml Amp) 0.3 mg IM UD PRN PRN Reason: Allergic Reaction Stop: 07/12/21 05:16 Ferrous Sulfate (Ferrous Sulfate 325 Mg/7.4 Ml Udp) 325 mg PO BIDM [facility] Stop: 07/15/21 16:59 Last Admin: 06/24/21 08:30 Dose: 325 mg Documented by: Fluticasone Furoate (Fluticasone Furoate 100mcg 14 Puffs/Inhaler) 1 puffs INH DAILY [facility] Stop: 07/18/21 09:59 Last Admin: 06/24/21 08:29 Dose: 1 puffs Documented by: Fluticasone Propionate (Fluticasone Propionate Na Spr 16 Gm Btl) 2 sprays NA DAILY [facility] Stop: 07/12/21 08:59 Last Admin: 06/24/21 08:28 Dose: 2 sprays Documented by: Gabapentin (Gabapentin 250 Mg/5 Ml 470 Ml Btl) 900 mg PO TID [facility] Stop: 07/15/21 13:59 Last Admin: 06/24/21 08:28 Dose: 900 mg Documented by: Phenytoin 100 mg/ Syringe 2 mls @ 1 mls/min IV TID [facility] Stop: 07/12/21 08:59 Last Admin: 06/24/21 08:49 Dose: 1 mls/min Documented by: Cefepime HCl 2,000 mg/ Syringe 20 mls @ 5 mls/min IV TID [facility]; Protocol Stop: 07/01/21 08:59 Insulin Aspart (Insulin Aspart 100 Units/Ml 3 Ml Pen) 0 units SC Q6 [facility] Stop: 07/13/21 11:59 Last Admin: 06/24/21 08:00 Dose: 3 units Documented by: Isosorbide Dinitrate (Isosorbide Dinitrate 5 Mg Tab) 5 mg PO Q3H PRN PRN Reason: chest pain Stop: 07/12/21 04:37 Isosorbide Mononitrate (Isosorbide [place] Extended Rel 60 Mg Tabcr) 120 mg PO BID [facility] Stop: 07/12/21 08:59 Last Admin: 06/12/21 08:32 Dose: Not Given Documented by: Lansoprazole (Lansoprazole 30 Mg Soltab) 30 mg PEG BID [facility] Stop: 07/22/21 20:59 Last Admin: 06/24/21 08:26 Dose: 30 mg Documented by: Levetiracetam (Levetiracetam Oral Soln 100mg/Ml) 1,000 mg PO BID [facility]IS[facility] Stop: 07/17/21 20:59 Last Admin: 06/24/21 08:49 Dose: 1,000 mg Documented by: Lisinopril (Lisinopril 2.5 Mg Tab) 2.5 mg PO DAILY [facility] Stop: 07/14/21 08:59 Last Admin: 06/24/21 08:25 Dose: 2.5 mg Documented by: Loratadine (Loratadine 10 Mg Tab) 10 mg PO DAILY [facility]IS[facility] Stop: 07/12/21 08:59 Last Admin: 06/24/21 08:25 Dose: 10 mg Documented by: Metoprolol Tartrate (Metoprolol Tartrate 25 Mg Tab) 12.5 mg PO TID [facility]IS[facility] Stop: 07/17/21 13:59 Last Admin: 06/24/21 08:26 Dose: 12.5 mg Documented by: Miscellaneous Information (Cefepime Consult Active) 0 ea N/A NOW ONE Stop: 06/24/21 08:45 Oxycodone HCl (Oxycodone Hcl Soln 5 Mg/5 Ml Udc) 5 mg PO Q4H PRN PRN Reason: Pain Stop: 07/01/21 18:22 Last Admin: 06/24/21 06:30 Dose: 5 mg Documented by: Potassium Chloride (Potassium Chloride 20 Meq/15 Ml Udc) 40 meq PO DAILY DENISSE Stop: 07/16/21 08:59 Last Admin: 06/24/21 08:29 Dose: 40 meq Documented by: Primidone (Primidone 50 Mg Tab) 50 mg PO TID [facility]ISSE Stop: 07/12/21 08:59 Last Admin: 06/24/21 08:26 Dose: 50 mg Documented by: Rivaroxaban (Rivaroxaban 15 Mg Tab) 15 mg PO BID [facility] Stop: 07/14/21 20:59 Last Admin: 06/24/21 08:26 Dose: 15 mg Documented by: Sodium Chloride (Sodium Chloride 0.9% 10ml Flush) 20 ml IV TID [facility]ISSE Stop: 07/12/21 08:59 Last Admin: 06/24/21 08:30 Dose: 20 ml Documented by: Sodium Chloride (Sodium Chlor 7% 4 Ml Neb) 4 ml NEB BIDR [facility] Stop: 07/24/21 18:59 Sterile Water (Tube Feeding Water Flush) 60 ml GT Q4H [facility]IS[facility] Stop: 07/15/21 13:29 Last Admin: 06/24/21 08:40 Dose: 60 ml Documented by: Thiamine HCl (Thiamine Hcl 100 Mg Tab) 100 mg PEG BID [facility]ISSE; Protocol Stop: 07/22/21 20:59 Last Admin: 06/24/21 08:26 Dose: 100 mg Documented by: Umeclidinium/Vilanterol (Umeclidinium/Vilanterol 62.5/25mcg 7 Puffs/Inhaler) 1 puffs INH DAILY [facility]IS[facility] Stop: 07/18/21 10:14 Last Admin: 06/24/21 08:30 Dose: 1 puffs Documented by: (1) Respiratory failure with hypoxia and hypercapnia Chronicity: acute on chronic Qualified Code(s): J96.21 - Acute and chronic respiratory failure with hypoxia; J96.22 - Acute and chronic respiratory failure with hypercapnia
[2021-06-24 09:49] LABS: Appearance Urine Cloudy (Clear); Bilirubin Urine Negative (Negative); Blood Urine Trace (Negative); Color Urine Dark Yellow; Glucose Urine UA Negative (Negative); Ketones Urine Negative (Negative); Leukocyte Esterase Urine 2+ (Negative); Nitrite Urine Negative (Negative); Specific Gravity Urine 1.025 (1.000-1.030); Urobilinogen Urine Negative (Negative); WBC Urine Automated >30 /hpf (0-5)
[2021-06-24 09:53] LABS: Protein Urine 1+ (Negative)
[2021-06-24] MEDS: CEFEPIME 2,000 MG in SYRINGE 0 ML IV SCH ×2 (10:06→17:22)
[2021-06-24] MEDS: ACETAMINOPHEN SUSP 325 MG/10.15 ML UDC PEG PRN ×2 (10:07→20:35)
[2021-06-24 10:23] LABS: Bacteria Urine Automated 1+ (Negative)
--- NOTE | 2021-06-24 13:13 | CT Scan Report ---
CT OF THE CHEST WITHOUT IV CONTRAST CLINICAL HISTORY: Evaluate left basilar opacities. COMPARISON STUDY: Chest CT December 04, 2014. Chest radiograph performed earlier today. CT DOSE: 571.17 mGycm TECHNIQUE: Axial images of the chest were obtained without IV contrast. Images were reviewed in the axial, sagittal, and coronal planes. IV contrast was not administered for this examination. Automat ed exposure control was utilized for the study. A dose lowering technique was utilized adhering to t he principles of ALARA. FINDINGS: Tracheostomy tube and left subclavian pacer/AICD are in place. Note is made of extensive s ecretions/mucous within the left mainstem bronchus and the segmental and subsegmental bronchi of the left lung. Several occluded segmental bronchi within the right lower lobe are noted. Moderate left an d [id number] right pleural effusions are present. There is no pneumothorax. There is near comp lete opacification of the left lower lobe. There is also extensive right lower lobe and lingular airs pace opacity. Interlobular septal thickening is present. There is underlying emphysema. Additional ai rspace opacities within the bilateral lungs are noted. There is mild cardiomegaly. Extensive coronary artery calcification is present. No pericardial effusion. No thoracic lymphadenopathy. There is body wall edema. Extensive atherosclerotic plaque of the descending thoracic aorta is noted as well as vi sualized portions of the abdominal aorta. IMPRESSION: 1. Moderate left and [id number] right pleural effusions. Near-complete opacification of the le ft lower lobe which could reflect subpleural atelectasis or pneumonia. Extensive right lower lobe and lingular opacities could reflect pneumonia or atelectasis. 2. Interlobular septal thickening consistent with pulmonary edema. Additional patchy bilateral opacit ies could reflect an infectious process or alveolar edema. Follow-up chest CT in 3 months to ensure r esolution is recommended. 3. Near occlusion of left sided bronchial tree, likely due to secretions or mucous. Occluded segmenta l bronchi within the right lower lobe. 4. Mild cardiomegaly. Extensive coronary artery calcification. ACT 112: Negative or not required by law. Electronically signed by: Sergio Osman M.D. 06/24/2021 1:12 PM
[2021-06-24] MEDS: PEPTAMEN 1.5 CAL 1,000 ML BAG GT SCH (15:42)
--- NOTE | 2021-06-24 18:14 | Hospitalist Progress Note ---
Date of Service June 24, 2021 Assessment & Plan (1) Non-ST elevation [place] (NSTEMI): Plan: ASSESSMENT AND PLAN: This is a 55-year-old female who presents with agitation, chest pain, pain all over and found to be with non-ST elevated myocardial infarction and congestive heart failure. 1. Respiratory Distress: The patient is s/p intubation and mechanical ventilation, possibly secondary to congestive heart failure, received Lasix in ER -- self extubated 06/14, then reintubated 06/15 -- s/p trach placement 06/16 Possible Aspiration Pneumonia Completed 10 days course of Unasyn Chest x-ray last night showed significant interval improvement in left lung aeration. Bilateral airspace opacities, improved since prior exam. Small bilateral pleural effusions with probable mild pulmonary edema. 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 Non-ST elevated myocardial infarction: Status post cardiac catheterization and stent to the proximal LAD lesion, post-cath care as per cardiology. Ischemic Cardiomyopathy -- s/p Cardiac Cath 06/[address] Hinojosa: 1. Severe multivessel vessel coronary artery disease -90% possibly acute proximal LAD stenosis. Patent mid LAD stent 100% chronic mid RCA occlusion. Distal vessel fills via [id number] collaterals. 2. Elevated intracardiac filling pressure. LVEDP 34 3. Severe obstructive abdominal aortic disease (unable to pass 5 Fr catheter across stenosis). 4. Successful PCI of proximal to mid LAD with single drug-eluting stent (3.0 x 18 mm [place]; postdilated with 3.5 NC, overlaps proximal aspect of prior stent). Echo with EF 25-30%. extensive wall motion abnormalities with the inferior wall being akinetic at the base on ASA, Plavix, Imdur-->changed to Nitropaste, IV Metoprolol, Lisinopril, Lipitor Plavix resumed about 24 hours after Peg Placement Heparin drip was transition to Xarelto Severe Dysphagia Failed swallow eval High risk for aspiration. Status post PEG placement performed by Dr. Aiden Norris GI recommend to hold heparin drip for 24 hours, then resumed this morning Continue PEG tube feeding 3. Anemia, possible GI bleed -- Hemoglobin was 5.4 last admission, required 4 units of PRBCs. He was started on Protonix drip, now on IV PPI BID -- Hg 7.3 today -- GI not recommending EGD/Colonoscopy due to above -- Consider to transfuse if H/H drops below 7 -- Continue monitor H/H Right Arm DVT -- Heparin drip was on hold due to recent peg tub placement -- Heparin drip was transition to Xarelto 4. Elevated lactic acid and acidosis: Most likely from the acute coronary syndrome and respiratory distress. -- improved 5. The patient is on chronic pain medication. Oxycodone PRN Hypotension Patient was placed on pressor last night BP stable now off Levophed continue monitor BP Continue monitor BP 7. History of coronary artery disease. History of LAD stenting in the past as well as vasospastic angina 8. History of VT arrest due to coronary artery vasospasm versus acquired QT prolongation possible of azithromycin exposure, status post single chamber AICD. 9. History of peripheral vascular disease, superficial femoral artery occlusion, left subclavian artery stenosis. on aspirin and Plavix. 10. History of myotonic muscular dystrophy. PT, OT when stable. 11. History of pulmonary embolism. Coumadin was discontinued due to GI bleed in 2019. 12. History of left carotid endarterectomy in 2015. 13. History of chronic obstructive pulmonary disease: Continue her home inhalers. 14. History of seizures: On Keppra and phenytoin 15. History of diastolic congestive heart failure: per above 16. History of hypertension: 17. History of deep venous thrombosis prophylaxis: Will place on sequential compression devices for now because of possible gastrointestinal bleed. 18. Underweight Disposition Continue monitor in ICU Admission and Anticipated Discharge Date Admission Date: June 12, 2021 Subjective Pt was seen and examined for follow of respiratory failure, dysphagia and PEG tube placement Status post day #3 PEG tube placement with no complication Continue to require vent support Denies any chest pain, palpitation, dizziness Review of Systems Review of Systems: All systems reviewed & are unremarkable except as noted in Subjective Physical Exam Physical Exam: General- No acute distress Head- atraumatic Eyes- PERRL, EOMI, ENT- +trach in placed Neck- supple, no JVD Lungs- clear to auscultation Heart- regular rhythm; no murmur Abdomen- normal bowel sounds, soft, nontender Extremities- no calf tenderness Neuro- alert, oriented x 3; PERRL, EOMI; no facial palsy; no dysarthria Skin- warm & dry Results & Data Results & Data ([facility]) Vital Signs (Past 12 Hours) Vital Signs Temp Pulse Pulse Resp BP Pulse Ox 06/24/21 16:30 37.7 C H 81 26 H 95 06/24/21 16:00 37.6 C H 82 27 H 115/58 L 100 06/24/21 15:36 83 06/24/21 15:30 37.7 C H 83 24 100 06/24/21 15:00 37.6 C H 86 32 H 123/79 98 06/24/21 14:35 84 26 H 96 06/24/21 14:30 37.7 C H 89 17 95 06/24/21 14:00 37.8 C H 90 14 103/66 100 06/24/21 13:30 37.9 C H 86 24 100 06/24/21 13:00 37.9 C H 89 25 H 113/72 100 06/24/21 12:30 37.8 C H 92 H 32 H 100 06/24/21 12:00 38.1 C H 89 32 H 124/77 06/24/21 11:55 89 35 H 90 06/24/21 11:00 38.4 C H 90 39 H 91 06/24/21 10:45 94 H 33 H 95 06/24/21 10:30 38.5 C H 92 H 30 H 97 06/24/21 10:00 38.5 C H 91 H 31 H 125/79 93 06/24/21 09:30 38.4 C H 97 H 34 H 141/74 H 89 L 06/24/21 09:00 38.4 C H 93 H 32 H 96 06/24/21 08:30 38.3 C H 98 H 40 H 93 06/24/21 08:00 38.1 C H 97 H 39 H 92 06/24/21 07:30 38.2 C H 96 H 35 H 94 06/24/21 07:27 96 H 32 H 95 06/24/21 07:00 38.2 C H 96 H 34 H 91 06/24/21 06:30 38.2 C H 94 H 34 H 120/69 95
[2021-06-24] MEDS: SODIUM CHLOR 7% 4 ML NEB NEB SCH (20:23)
[2021-06-24] MEDS: ATORVASTATIN 40 MG TAB PO SCH (20:38)
[2021-06-25] MEDS: INSULIN ASPART 100 UNITS/ML 3 ML PEN SC SCH ×4 (00:18→18:05)
[2021-06-25] MEDS: TUBE FEEDING WATER FLUSH GT SCH ×6 (00:18→19:55)
[2021-06-25] MEDS: oxyCODONE HCL SOLN 5 MG/5 ML UDC PO PRN ×4 (00:52→19:51)
[2021-06-25] MEDS: CEFEPIME 2,000 MG in SYRINGE 0 ML IV SCH ×3 (02:43→18:16)
[2021-06-25 05:01] LABS: Hematocrit (blood only) 23.5 % (37-47); Hemoglobin 6.8 g/dL (12.0-16.0); Mean Corpuscular Hemoglobin 27.4 pg (25-34); Mean Corpuscular Hgb Conc 28.9 g/dL (32-36); Mean Corpuscular Volume 94.8 fL (80-100); Mean Platelet Volume 10.3 fL (7.4-10.4); Nucleated RBC # (auto) 0.07 K/uL (0-0); Nucleated RBC % (auto) 0.4 %; Platelet Count 304 K/uL (130-400); RDW Coefficient of Variation 22.9 % (11.5-14.5); RDW Standard Deviation 77.1 fL (36.4-46.3); Red Blood Count 2.48 M/uL (4.2-5.4); White Blood Count 14.71 K/uL (4.8-10.8)
[2021-06-25 05:03] LABS: Partial Thromboplastin Ratio 1.3; Partial Thromboplastin Time 33.6 Seconds (21.0-31.0)
[2021-06-25 05:25] LABS: Anisocytosis Present; BUN Creatinine Ratio 80.6 (10-20); Basophils # (auto) 0.02 K/uL (0-0.2); Basophils % (auto) 0.1 %; Blood Urea Nitrogen 18 mg/dl (7-18); Calcium 8.1 mg/dl (8.5-10.1); Carbon Dioxide 29 mmol/L (21-32); Chloride 112 mmol/L (98-107); Creatinine Clr Calc Pharmacy 198.8 ml/min; Eosinophils # (auto) 0.15 K/uL (0-0.5); Est GFR (African American) > 150.0 ml/min; Est GFR (Non-African American) 141.8 ml/min; Glucose 135 mg/dl (70-99); Hypochromasia Present; Immature Granulocytes # (auto) 0.06 K/uL (0.00-0.02); Immature Granulocytes % (auto) 0.4 %; Lymphocytes # (auto) 0.62 K/uL (1.2-3.4); Lymphocytes % (auto) 4.2 %; Magnesium 2.5 mg/dl (1.8-2.4); Monocytes # (auto) 0.94 K/uL (0.11-0.59); Monocytes % (auto) 6.4 %; Neutrophils # (auto) 12.92 K/uL (1.4-6.5); Neutrophils % (auto) 87.9 %; Polychromasia 1+; Potassium 4.3 mmol/L (3.5-5.1); Sodium 140 mmol/L (136-145)
[2021-06-25 05:28] LABS: Phosphorus 3.7 mg/dl (2.5-4.9)
[2021-06-25] MEDS: ACETAMINOPHEN SUSP 325 MG/10.15 ML UDC PEG PRN ×3 (05:31→19:52)
[2021-06-25] MEDS ORDERED: SODIUM CHLORIDE 0.9% 250 ML IV PRN (06:00)
[2021-06-25] MEDS: ACETYLCYSTEINE 20% INHAL SOLN 4ML ***DISPENSED BY RESP. INH SCH ×2 (07:08→19:22)
[2021-06-25] MEDS: ALBUT/IPRATROP 3MG/0.5MG NEB 3 ML VIAL NEB PRN ×2 (07:08→19:22)
[2021-06-25] MEDS: SODIUM CHLOR 7% 4 ML NEB NEB SCH ×2 (07:09→19:22)
[2021-06-25] MEDS ORDERED: FUROSEMIDE INJ 20 MG/2 ML VIAL IV ONE ×2 (07:39→10:07)
[2021-06-25] MEDS ORDERED: Heparin IV Adult Wt-Based Standard *NO* Bolus Protocol IV SCH (07:49)
--- NOTE | 2021-06-25 07:52 | Critical Care Progress Note ---
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 Now post cardiac catheter she received a single drug-eluting stent to the proximal LAD for 90% stenosis and is also being monitored for a GIB and acute hypoxic/hypercapnic respiratory failure, likely secondary to component of acute CHF and severe underlying COPD. She is hemodynamically stable. Recommendations: Neuro -continue Keppra, phenytoin, primidone. Continue Neurontin for her peripheral neuropathy. She is profoundly deconditioned and will require aggressive therapy PT OT and likely long-term acute care rehab. Will need to go to an LTAC. Cardiac -status post ST elevation MD with drug-eluting stent to the proximal LAD. Continue aspirin, Plavix, Lipitor and HAILEY inhibitor, metoprolol 12.5 mg 3 times daily. Appreciate cardiology assistance. Hemodynamically stable. Continue gentle Lasix as tolerated. History of Prinzmetal's angina, but holding nitrates and calcium channel blockers currently. Echo from 06/12/2021 with an EF of 25 to 30%. Moderate tricuspid regurg. RVSP 40 to 50 mmHg. Extensive wall motion abnormalities of the left ventricle. Will likely need placement of a central line due to poor venous access. Respiratory -presumptive history of COPD. Continue Incruse Ellipta. Required multiple intubations and currently is trached. Status post tracheostomy 06/16/2021. We will hold on trach collar trials today given her episode of apnea. Continue present support via ventilator. CT chest concerning for mucous plugging and bilateral effusions with atelectasis. Continue vest percussive therapy 4 times daily given recurrent mucous plugging. Continue hypertonic saline. Continue Mucomyst twice daily. Will perform bronchoscopy today to evaluate the airways and aspirate mucoid impactions. GI -status post EGD 06/21/2021. No obvious bleeding. PEG tube placed and receiving tube feeds via PEG tube at this time. Transaminitis improving. Likely related to shock liver. He has a prior history of aspiration. RENAL/LYTES -no significant issues at present. Urine output remains adequate. 4 L positive since admission. We will give 20 mg of IV Lasix today and follow the response. - Foleystrict I's and O's ENDO -glycemic control per protocol HEME -continues to be anemic. Likely combination of GI bleed and frequent blood draws. She also likely has a component of anemia of chronic disease. Will monitor CBC every 6 hours. Will transition from Xarelto to heparin drip. Receiving 1 unit of blood today. An extensive nonocclusive DVT noted in the right upper extremity. Occlusive superficial venous thrombus is seen within the basilic vein. This is based on ultrasound from 06/17/2021. ID -Patient continues to spike low-grade temperatures which may be related to her DVT. Bilateral effusions present appear to be related to volume overload. Doubt infectious in origin. Will perform repeat bronchoscopy with cultures. Bronchoscopy cultures from 06/16/2021 growing Adrianne albicans. Likely contaminant. Urine cultures with lactobacillus species. We will repeat a urinalysis, blood cultures, procalcitonin. Will initiate cefepime 06/24/2021. MRSA screen ordered. Prior MRSA screen is negative. LINES/IV ACCESS - We will place central venous line DVT PROPHYLAXIS - SCDs,Heparin ggt CRITICAL CARE TIME - I have personally spent 41 minutes of critical care time in the direct management of this patient. This is a life/limb threatening event. This includes time spent evaluating patient, direct bedside care, chart review, placing orders, interpretation of diagnostic studies, discussion with consultants, patient, and family members, as well as other required patient management activities. This time is exclusive of all separately billable procedures, and teaching time and separate from and in addition to any other critical care service time. Admission and Anticipated Discharge Date Admission Date: June 12, 2021 Subjective Patient seen and examined this morning. She has an episode of bradycardia and unresponsiveness. Atropine was given at bedside with improvement of heart rate. We also ventilated her using the Ambu bag. She became much more arousable and her blood pressures improved. Review of Systems Review of Systems: All systems reviewed & are unremarkable except as noted in HPI & below Physical Exam Physical Exam: General: Alert. nontoxic. Skin: Warm, dry, Head: Atraumatic. Ears, nose, mouth and throat: Tracheostomy present Cardiovascular: Regular rate and rhythm. No murmurs. Left upper extremity edema. Respiratory: Diffuse crackles. Diminished at the bases bilaterally. Gastrointestinal: Non distended PEG tube present Musculoskeletal: No deformity Results & Data Results & Data ([facility]) Vital Signs (Past 12 Hours) Vital Signs Temp Pulse Resp BP Pulse Ox 06/25/21 06:00 100.8 F H 85 34 H 96 06/25/21 05:30 100.6 F H 95 H 31 H 99 06/25/21 05:00 100.4 F H 94 H 34 H 139/102 H 97 06/25/21 04:30 100.4 F H 93 H 25 H 97 06/25/21 04:00 100.0 F H 100 H 37 H 148/69 H 97 06/25/21 03:30 99.7 F H 92 H 17 100 06/25/21 03:00 99.7 F H 93 H 27 H 98 06/25/21 02:47 95 H 34 H 96 06/25/21 02:30 99.9 F H 89 22 114/62 92 06/25/21 02:00 99.9 F H 85 28 H 114/62 93 06/25/21 01:00 99.9 F H 87 28 H 102/62 100 06/25/21 00:00 100.2 F H 89 14 104/67 98 06/24/21 23:22 79 06/24/21 23:00 100.0 F H 81 25 H 99/59 L 97 06/24/21 22:47 80 28 H 95 06/24/21 22:30 100.4 F H 84 35 H 95 06/24/21 22:00 100.6 F H 84 26 H 97/57 L 93 06/24/21 21:30 100.6 F H 89 31 H 98 06/24/21 21:00 100.4 F H 91 H 30 H 97 06/24/21 20:30 100.0 F H 94 H 11 L 119/69 97 06/24/21 20:00 99.7 F H [address] chest from 06/24/2021 personally reviewed. Appears to be debris in the left mainstem bronchus. Bilateral effusions noted with atelectasis. Coding Level of Care Code Critical Care 1st 30-74 mins Diagnoses Tracheostomy dependence Z93.0 Mucoid impaction of bronchi T17.500A Non-ST elevation MD (NSTEMI) I21.4 CHF (congestive heart failure) I50.9 Heart failure chronicity: acute Heart failure type: unspecified GI bleed K92.2 Acidemia E87.2 Respiratory failure with hypoxia and hypercapnia J96.21; J96.22 Chronicity: acute on chronic Pacemaker Z95.0 Anemia D64.89 Anemia type: other cause Other causes of anemia: other cause, not classified Syncope R55 Syncope type: unspecified H/O diastolic dysfunction Z86.79 PAD (peripheral artery disease) I73.9 Presence of stent in LAD coronary artery Z95.5 Cellulitis L03.90 Prinzmetal angina I20.1 Postoperative deep vein thrombosis T81.89XA; I82.409 Steinert myotonic dystrophy syndrome G71.11 Time Spent (min) 41 (1) CHF (congestive heart failure) Heart failure chronicity: acute Heart failure type: unspecified Qualified Code(s): I50.9 - Heart failure, unspecified (2) Respiratory failure with hypoxia and hypercapnia Chronicity: acute on chronic Qualified Code(s): J96.21 - Acute and chronic respiratory failure with hypoxia; J96.22 - Acute and chronic respiratory failure with hypercapnia (3) Anemia Anemia type: other cause Other causes of anemia: other cause, not classified Qualified Code(s): D64.89 - Other specified anemias (4) Syncope Syncope type: unspecified Qualified Code(s): R55 - Syncope and collapse
[2021-06-25 08:16] LABS: Basophils # (auto) 0.01 K/uL (0-0.2); Basophils % (auto) 0.1 %; Eosinophils # (auto) 0.12 K/uL (0-0.5); Eosinophils % (auto) 0.8 %; Hematocrit (blood only) 23.5 % (37-47); Immature Granulocytes # (auto) 0.02 K/uL (0.00-0.02); Immature Granulocytes % (auto) 0.1 %; Lymphocytes # (auto) 0.74 K/uL (1.2-3.4); Lymphocytes % (auto) 5.1 %; Mean Corpuscular Hemoglobin 27.9 pg (25-34); Mean Corpuscular Hgb Conc 29.8 g/dL (32-36); Mean Corpuscular Volume 93.6 fL (80-100); Mean Platelet Volume 10.2 fL (7.4-10.4); Monocytes # (auto) 1.17 K/uL (0.11-0.59); Monocytes % (auto) 8.1 %; Neutrophils # (auto) 12.41 K/uL (1.4-6.5); Neutrophils % (auto) 85.8 %; Platelet Count 319 K/uL (130-400); RDW Coefficient of Variation 22.8 % (11.5-14.5); Red Blood Count 2.51 M/uL (4.2-5.4); White Blood Count 14.47 K/uL (4.8-10.8)
--- NOTE | 2021-06-25 08:18 | XRay Report ---
XR chest 1V portable CLINICAL HISTORY: Resp failure TECHNIQUE: Single frontal radiograph of the chest was obtained. Comparison: Comparison is made to chest one view 06/24/2021 FINDINGS: Single lead pacemaker is unchanged. The cardiomediastinal silhouette is stable. Left retrocardiac opa city seen. Right lower lung airspace opacities are seen. Left pleural effusion. IMPRESSION: Stable moderate left pleural effusion and left greater than right lower lung airspace opacities. ACT 112: Negative or not required by law. Electronically signed by: Eber Hairston M.D. 06/25/2021 8:17 AM
[2021-06-25 09:05] LABS: Anisocytosis Present; Polychromasia 1+
--- NOTE | 2021-06-25 10:10 | Procedure Note ---
Procedure Note Date of Service June 25, 2021 Note INTERNAL JUGULAR CENTRAL LINE PROCEDURE NOTE: Procedure: Internal Jugular Central Line Placement Indication: Central Drug Administration, Poor Venous Access, Multiple Lab Draws Necessary, etc. Anesthesia: 8 ml Lidocaine 1% Consent was signed and placed on the chart prior to procedure. Consent obtained over the phone from her . Indication, risks, and benefits were explained at length. A time-out was completed verifying correct patient, procedure, site, positioning, and implants(s) or special equipment if applicable. Patients right neck was cleansed and draped in the typical sterile fashion using Chloraprep. The Internal Jugular Vein and Carotid Artery were identified using ultrasound. The superficial tissue was anesthetized using 8 mL of 1% lidocaine without epinephrine under direct visualization with the ultrasound. After adequate anesthetization was achieved, the Internal Jugular vein was cannulated under direct ultrasound guidance using an introducer needle on a syringe. Good venous blood return was maintained prior to removal of syringe from introducer needle. Using Seldinger Technique, a guide wire was advanced through the introducer needle without resistance. The introducer needle was removed and ultrasound images were obtained of the guide wire within the Internal Jugular Vein and saved to the patients medical record. A small incision was made in penetrating fashion at the guide wire insertion site utilizing an 11 blade scalpel. The dilator was advanced to the vessel without resistance. The dilator was exchanged for the triple lumen catheter which was advanced into the vessel without re sistance. The guide wire was removed intact from the catheter without issue. Claves were placed on each catheter tip with confirmation of good blood flow from each lumen. Each port was easily flushed with sterile saline. The catheter was placed at 15 cm [address] in place. BioPatch was applied to the catheter and a sterile Tegaderm dressing was applied over the catheter with careful attention to sterility. Patient tolerated procedure well. No immediate complications were met. Post procedure x-ray was completed, placement was appropriate and no pneumothorax was noted. Images obtained are saved for permanent record. Coding CPT Codes Tubes, Drains, and Vasc Access - Tubes, Drains, and Vasc Access: [id number] Place catheter in vein superior or inferior vena cava ([id number]) Tubes, Drains, and Vasc Access - Tubes, Drains, and Vasc Access: [id number] Ultrasound Guidance For Vascular ([id number]) [facility] Procedure Codes (Charges) Tubes, Drains, and Vasc Access Procedure 1: Tubes, Drains, and Vasc Access: [id number] Place catheter in vein superior or inferior vena cava Procedure 2: Tubes, Drains, and Vasc Access: [id number] Ultrasound Guidance For Vascular
--- NOTE | 2021-06-25 10:16 | Procedure Note ---
Procedure Note Date of Service June 25, 2021 Note Procedure Name: Central venous catheter placement Date of Service: 06/25/2021 Site: Right IJ Consent: Obtained in writing by Jhonny Rodriguez PA-C prior to the procedure as delegated by Dr. Marvin. Patient unable to sign. She gave verbal consent. The patient's was then contacted by telephone and also gave his consent for central venous catheter, thoracentesis, administration of blood products. All 3 of these consents were placed on the patient chart Indication: Poor venous access, need for medication administration and blood transfusion Narritive: A time out was performed. Using bedside ultra sound, the right IJ vein was identified as well as the right carotid artery. Images were obtained and saved to the PACS system. Using strict sterile technique, the ultra sound was used to identify the right internal juglar vein and 5 mls of 1% lidocaine was used to anesthiatize the area. With the IJ identified, a finder needle was advanced using negative pressure until a flash was observed in the syringe. I was unable to maintain blood flow in the syringe. After 3 attempts, Dr. Marvin entered the room and was able to obtain blood. A guidewire was then easily advanced into the vein and the finder needle was withdrawn by Dr. Marvin. A small incision was made in the skin and I was able to easily advance the triple lumen catheter into the vein. It was placed to 15cm. There was no significant ectopy on the monitor and no hemodynamic change at this point. The guidewire was easily removed and claves were placed on each hub. There was adequate draw and flush with each of the three ports. A chlorhexadine disc was placed at the insertion site of the catheter. The proximal hub was then secured with two sutures. The distal hub was secured with a STATLok device. A sterile dressing was placed over the catheter. Complications: On my second attempt at accessing the IJ vein, bright red blood was obtained. It appeared to be from the right carotid artery. The finder needle was withdrawn and direct pressure was placed. With ultrasound there was a small amount of extravasation of blood around the carotid artery. There is no evidence of significant hematoma. Blood loss: 2 mls The patient tolerated the procedure well. A post procedure CXR was obtained and showed adequate placement of the catheter and no evidence of pneumothorax. At the completion of the procedure, Dr. Marvin was updated. Procedural Ultrasound Guidance: Procedure Date: 06/25/2021 Indication: Right IJ central catheter insertion Attending: Dr. Marvin APC: Jhonny Rodriguez PA-C Artery AND Vein visualized: The right IJ vein as well as the right carotid artery Compressible Vein: The right IJ vein was easily compressible Guidewire or Short Catheter seen in vein prior to dilation: Yes Images obtained are saved for permanent record. Supervising Physician Co-Signing Physician Notes I was present and performed the critical portion of the procedure. See my note for billing purposes and procedure. Thank you. Coding
--- NOTE | 2021-06-25 10:39 | Ultrasound Report ---
LEFT UPPER EXTREMITY VENOUS DOPPLER HISTORY: Left arm swelling. COMPARISON STUDY: None. FINDINGS: The left internal jugular vein is patent. Occlusive to near occlusive thrombus involving th e left subclavian, axillary, basilic, and one of 2 brachial veins. Intermittent flow within one of 2 ulnar veins suggesting partial thrombus. There is subcutaneous edema within the left upper extremity. IMPRESSION: Extensive left upper extremity DVT as described above. ACT 112: Negative or not required by law. Electronically signed by: Robert Godoy M.D. 06/25/2021 10:38 AM
--- NOTE | 2021-06-25 10:41 | XRay Report ---
XR chest 1V portable CLINICAL HISTORY: s/p rij placement TECHNIQUE: Single frontal radiograph of the chest was obtained. Comparison: Comparison is made to chest one view 06/25/2021 FINDINGS: Right IJ tip is in the upper SVC. Remaining lines and tubes are stable. The cardiomediastinal silhoue tte is normal. Redemonstration of bilateral lower lung predominant airspace opacities. Moderate left and small right pleural effusion, unchanged from prior exam. IMPRESSION: 1. Satisfactory position of right IJ catheter. 2. Stable airspace opacities and left greater than right effusion. ACT 112: Negative or not required by law. Electronically signed by: Eber Hairston M.D. 06/25/2021 10:40 AM
[2021-06-25] MEDS: GABAPENTIN 250 MG/5 ML 470 ML BTL PO SCH ×3 (10:46→19:52)
[2021-06-25] MEDS: ASPIRIN 81 MG CHEW NG SCH (10:49)
[2021-06-25] MEDS: PRIMIDONE 50 MG TAB PO SCH ×3 (10:49→19:55)
[2021-06-25] MEDS: CLOPIDOGREL BISULFATE 75 MG TAB PO SCH (10:49)
[2021-06-25] MEDS: LORATADINE 10 MG TAB PO SCH (10:49)
[2021-06-25] MEDS: lisinopril 2.5 MG TAB PO SCH (10:49)
[2021-06-25] MEDS: FERROUS SULFATE 325 MG/7.4 ML UDP PO SCH ×2 (10:50→18:16)
[2021-06-25] MEDS: METOPROLOL TARTRATE 25 MG TAB PO SCH ×3 (10:50→19:52)
[2021-06-25] MEDS: PHENYTOIN 100 MG in SYRINGE 0 ML IV SCH ×3 (10:50→19:53)
[2021-06-25] MEDS: POTASSIUM CHLORIDE 20 MEQ/15 ML UDC PO SCH (10:51)
[2021-06-25] MEDS: SODIUM CHLORIDE 0.9% 10ML FLUSH IV SCH ×3 (10:51→19:54)
[2021-06-25] MEDS: UMECLIDINIUM/VILANTEROL 62.5/25MCG 7 PUFFS/INHALER INH SCH ×2 (10:51→15:30)
[2021-06-25] MEDS: FLUTICASONE PROPIONATE NA SPR 16 GM BTL SCH (10:51)
[2021-06-25] MEDS: FLUTICASONE FUROATE 100MCG 14 PUFFS/INHALER INH SCH ×2 (10:52→15:29)
[2021-06-25] MEDS: LANSOPRAZOLE 30 MG SOLTAB PEG SCH ×2 (10:52→19:52)
[2021-06-25] MEDS: levETIRAcetam ORAL SOLN 100MG/ML PO SCH ×2 (10:52→19:52)
[2021-06-25] MEDS: HEPARIN SODIUM/DEXTROSE 25,000 UNITS/500 ML BAG IV SCH (10:52)
[2021-06-25] MEDS: THIAMINE HCL 100 MG TAB PEG SCH ×2 (10:53→19:56)
--- NOTE | 2021-06-25 12:16 | Palliative Care Consultation ---
Date of Consultation June 25, 2021 Assessment & Plan (1) Palliative care encounter: This unfortunate patient is a 55 year old female who has been admitted to the [facility] for the last 13 days following an exacerbation of CHF and respiratory failure that led to a rapid intubation. She 55-year-old female presents to the ICU following event of acute coronary syndrome resulting in respiratory failure requiring emergent intubation. She did present to the general laborer and had a single AKIKO placed in the LAD as it was 90% occluded. Unfortunately, she did not show improvement on the ventilator and a tracheostomy was placed on 06/23. Since then, she has developed a non occlusive DVT in her LUE, including her subclavian, axillary and basilic vein. Additionally, she has an occlusive DVT in her RUE. This morning she became bradycardic and required Atropine to be administered. Additional PMH includes: CAD s/p single chamber AICD placement, COPD, HLD, is a chronic smoker of 2-3 cigarettes per day, HTN, PTSD, and chronic pain. Palliative medicine was consulted to discuss overall goals of care. I discussed the patients care with Dr. Marvin and Dr. Gonzalez in the ICU. This morning, the patient became bradycardic and responded to Atropine being administered. Patient is currently a full code. The ICU team contacted the patients , Jared at [phone] and confirmed that for now he would want her to be resuscitated. He explained to the ICU team that he is at work and trying to get out early to come over to the hospital. I will not reach out to him now as the ICU team had just spoken to him. I did speak with the patient in her room. She was able to follow simple commands , including squeezing my hands, wiggling her toes, opening and closing her eyes relatively reliably to yes and no questions. I asked Dr. Kareen Gonzalez to join me in the room for reliability in the interaction. I did ask a variety of questions, including if she was in pain which she expressed a nod. I also discussed code status and explained the un liklihood of her having a meaningful recovery if her heart would go into a cardiac rhythm that is not sustainable with life or if her heart would stop. She nodded understanding and indicated a nod that she would want CPR performed on her despite the previous sentence. Additionally, I asked if she would be unable to respond and interact if she would want her Jared to make decisions on her behalf. She did nod and indicate that if things were not showing improvement, she would want to be shifted to a more comfort focused approach to her care. Unfortunately, we are continuing aggressive measures and likely are heading to a futile projectory with her disease. Patients anticipated to arrive later today. For now, remain a full code. Palliative will follow. Would support a transition to comfort measures should family and patient decide to proceed. (2) Pneumonia due to COVID-19 virus: Patient became trached on 06/23 and is currently on PS PEEP 5. SpO2 94%. Patient was trialed on SBT but became hypoxic. (3) DVT (deep venous thrombosis): non occlusive DVT in her LUE, including her subclavian, axillary and basilic vein. Additionally, she has an occlusive DVT in her RUE (4) Bradycardia: HR dropped into the 20-30 range. Atropine administered with positive response. History of Present Illness Reason for Consultation: Goals of care Requesting Physician: Dr. Marvin Attending Physician: Jam Acuña MD History of Present Illness This unfortunate patient is a 55 year old female who has been admitted to the [facility] for the last 13 days following an exacerbation of CHF and respiratory failure that led to a rapid intubation. She 55-year-old female presents to the ICU following event of acute coronary syndrome resulting in respiratory failure requiring emergent intubation. She did present to the general laborer and had a single AKIKO placed in the LAD as it was 90% occluded. Unfortunately, she did not show improvement on the ventilator and a tracheostomy was placed on 06/23. Since then, she has developed a non occlusive DVT in her LUE, including her subclavian, axillary and basilic vein. Additionally, she has an occlusive DVT in her RUE. This morning she became bradycardic and required Atropine to be administered. Additional PMH includes: CAD s/p single chamber AICD placement, COPD, HLD, is a chronic smoker of 2-3 cigarettes per day, HTN, PTSD, and chronic pain. Palliative medicine was consulted to discuss overall goals of care. Please see A/P for further details. Thanks for involving Palliative Medicine with this individual. Allergies Allergy/AdvReac Type Severity Reaction Status Date / Time bee venom protein (honey bee) Allergy Severe Anaphylaxis Verified 06/12/21 00:03 -HIVES Influenza Virus Vaccines Allergy Severe EDEMA Verified 06/13/21 09:54 AIRWAY latex Allergy Intermediate HIVES, Verified 06/12/21 00:03 BLISTERS scopolamine Allergy Unknown Unknown Verified 06/12/21 00:03 azithromycin [From Zithromax] AdvReac Severe STOMACH Verified 06/12/21 00:03 ULCERS, BLEEDING, ARRYTHMIAS dexbrompheniramine AdvReac Severe CARDIAC Verified 06/12/21 00:03 SPASMS--ALL ANTIHISTAMINES pseudoephedrine AdvReac Severe CARDIAC Verified 06/12/21 00:03 SPASMS--ALL ANTIHISTAMINES levofloxacin AdvReac Intermediate QTC Verified 06/12/21 00:03 PROLONGATION H/O VF ARREST meperidine AdvReac Intermediate NAUSEA, Verified 06/12/21 00:03 VOMITING methadone AdvReac Intermediate NAUSEA, Verified 06/12/21 00:03 VOMITING, RASH diphenhydramine AdvReac Mild "ARTERITAL Verified 06/12/21 00:03 SPASMS" COLD AdvReac Unknown VASCULAR Uncoded 06/12/21 00:03 COLLAPSE SYNDROME Home Medications Medication Instructions Recorded Confirmed Type albuterol sulfate 90 mcg/actuation 2 puff INHALATION Q4 PRN 05/15/21 06/12/21 History aerosol inhaler aspirin 81 mg tablet,delayed 81 mg PO DAILY 05/15/21 06/12/21 History release atorvastatin 80 mg tablet 80 mg PO HS 05/15/21 06/12/21 History diltiazem HCl 240 mg capsule,24 480 mg PO DAILY 05/15/21 06/12/21 History hr,extended release epinephrine 0.3 mg/0.3 mL 0.3 mg IM UD PRN 05/15/21 06/12/21 History injection, auto-injector (EpiPen) fluticasone propionate 50 2 spray INTRANASAL DAILY 05/15/21 06/12/21 History mcg/actuation nasal spray,suspension furosemide 20 mg tablet 20 mg PO DAILY 05/15/21 06/12/21 History gabapentin 600 mg tablet 600 mg PO TID 05/15/21 06/12/21 History isosorbide dinitrate 5 mg tablet 5 mg PO DIRECTED PRN 05/15/21 06/12/21 History isosorbide mononitrate 120 mg 120 mg PO AMPM 05/15/21 06/12/21 History tablet,extended release 24 hr levetiracetam 1,000 mg tablet 1,000 mg PO BID 05/15/21 06/12/21 History lisinopril 5 mg tablet 10 mg PO DAILY 05/15/21 06/12/21 History loratadine 10 mg tablet 10 mg PO DAILY 05/15/21 06/12/21 History morphine 30 mg tablet,extended 30 mg PO BID 05/15/21 06/12/21 History release oxycodone 5 mg tablet 5 mg PO Q6 PRN 05/15/21 06/12/21 History phenytoin sodium extended 100 mg 100 mg PO TID 05/15/21 06/12/21 History capsule potassium chloride 20 mEq 40 meq PO DAILY 05/15/21 06/12/21 History tablet,extended release(part/cryst) prazosin 1 mg capsule 1 mg PO BID 05/15/21 06/12/21 History protein 500 mg chewable tablet 500 mg PO DAILY 05/15/21 06/12/21 History tizanidine 4 mg tablet 4 mg PO Q8 PRN 05/15/21 06/12/21 History trazodone 50 mg tablet 100 mg PO HS 05/15/21 06/12/21 History ferrous sulfate 325 mg (65 mg 325 mg PO BIDM #60 tab 05/18/21 06/12/21 Rx iron) tablet,delayed release pantoprazole 40 mg tablet,delayed 40 mg PO BID #60 tab 05/18/21 06/12/21 Rx release acetaminophen 325 mg tablet 325 mg PO Q6H PRN 06/12/21 06/12/21 History (Tylenol) aspirin 325 mg tablet,delayed 650 mg PO BID PRN 06/12/21 06/12/21 History release gabapentin 300 mg capsule 300 mg PO TID 06/12/21 06/12/21 History guaifenesin 600 mg tablet, 600 mg PO Q12H PRN 06/12/21 06/12/21 History extended release 12 hr ondansetron HCl 4 mg tablet 4 mg PO Q8H PRN 06/12/21 06/12/21 History (Zofran) primidone 50 mg tablet 50 mg PO TID 06/12/21 06/12/21 History Patient History Medical History (Updated 06/25/21 @ 12:02 by KIRSTIE Billings) Bradycardia Palliative care encounter Pneumonia due to COVID-19 virus Tracheostomy dependence Social History Smoking Status: Current every day smoker Tobacco Type: Cigarettes Second Hand Exposure: No; Do You Dip or Chew Tobacco: No; Tobacco Cessation Education Requested by Patient: No Hx Alcohol Use: No Hx Substance Use: Yes Last Used Substance: Unknown Preferred Language: Greenlandic Communication Ability: Unable Communication Ability Comment: Intubated Cardiac Nurse Specialist Required: No Beliefs That Will Affect Care: None marital status: Current Living Situation: Family Other Information That Helps Us Care for You: No Feels Safe at Home: Yes Safety Concerns: Feels Safe At This Time Assistive Devices: Oxygen - Continuous Review of Systems Review of Systems: [place] System Assessment Scale: by minimal discussion with blinking eyes yes and no Pain: 1/3 SOB: 1/3 Anxiety: 1/3 Tiredness: 2/3 Palliative Performance Scale: 20% Physical Exam Constitutional: + ill appearing, + frail appearing and cooperative ENMT: Mouth: + dry oral mucous membranes Respiratory: + uses accessory muscles and + cough Auscultation: + diminished lung sounds and + rhonchi Cardiovascular: Heart Sounds: normal S1, normal S2 and + murmur Extremities: + abnormal capillary refill and no edema Gastrointestinal (Abdomen): Inspection/Auscultation: abdomen normal to inspection Percussion/Palpation: abdomen soft Skin: + ecchymosis and + pallor Psychiatric: Orientation: alert, oriented to person, oriented to place and cooperative Insight: + limited insight Judgement: + limited judgement Results & Data ([facility]) Vital Signs (Past 12 Hours) Vital Signs Temp Pulse Resp BP Pulse Ox 06/25/21 11:21 95 H 40 H 92 06/25/21 11:05 37.9 C H 88 28 H 135/73 93 06/25/21 07:14 93 H 29 H 93 06/25/21 06:00 38.2 C H 85 34 H 96 06/25/21 05:30 38.1 C H 95 H 31 H 99 06/25/21 05:00 38.0 C H 94 H 34 H 139/102 H 97 06/25/21 04:30 38.0 C H 93 H 25 H 97 06/25/21 04:00 37.8 C H 100 H 37 H 148/69 H 97 06/25/21 03:30 37.6 C H 92 H 17 100 06/25/21 03:00 37.6 C H 93 H 27 H 98 06/25/21 02:47 95 H 34 H 96 06/25/21 02:30 37.7 C H 89 22 114/62 92 06/25/21 02:00 37.7 C H 85 28 H 114/62 93 06/25/21 01:00 37.7 C H 87 28 H 102/62 100 06/25/21 00:00 37.9 C H 89 14 104/67 98 PG Care Time/CCT Total # of Minutes Spent Total Time Spent with Patient: Total time spent is greater than 50% in coordination of care (as documented) at patient's floor/unit and/or counseling patient: 70 minutes with > 50% of that time spent assessing the patient, discussing goals of care with the patient and collaborating with IDT Coding Level of Care Code 95569 Initial Inpt Care Lvl 3 Diagnoses Palliative care encounter Z51.5 Pneumonia due to COVID-19 virus U07.1; J12.82 DVT (deep venous thrombosis) I82.409 Bradycardia R00.1 Time Spent (min) 70
[2021-06-25 17:30] LABS: Basophils # (auto) 0.02 K/uL (0-0.2); Basophils % (auto) 0.2 %; Eosinophils # (auto) 0.07 K/uL (0-0.5); Eosinophils % (auto) 0.6 %; Hematocrit (blood only) 26.9 % (37-47); Hemoglobin 8.2 g/dL (12.0-16.0); Immature Granulocytes # (auto) 0.03 K/uL (0.00-0.02); Immature Granulocytes % (auto) 0.3 %; Lymphocytes # (auto) 0.82 K/uL (1.2-3.4); Mean Corpuscular Hemoglobin 28.1 pg (25-34); Mean Corpuscular Hgb Conc 30.5 g/dL (32-36); Mean Corpuscular Volume 92.1 fL (80-100); Mean Platelet Volume 10.3 fL (7.4-10.4); Monocytes # (auto) 0.76 K/uL (0.11-0.59); Monocytes % (auto) 6.5 %; Neutrophils # (auto) 10.01 K/uL (1.4-6.5); Neutrophils % (auto) 85.4 %; Nucleated RBC # (auto) 0.06 K/uL (0-0); Nucleated RBC % (auto) 0.5 %; Platelet Count 285 K/uL (130-400); RDW Coefficient of Variation 20.7 % (11.5-14.5); RDW Standard Deviation 66.7 fL (36.4-46.3); Red Blood Count 2.92 M/uL (4.2-5.4); White Blood Count 11.71 K/uL (4.8-10.8)
[2021-06-25 17:39] LABS: Partial Thromboplastin Ratio 0.9; Partial Thromboplastin Time 23.6 Seconds (21.0-31.0)
[2021-06-25 18:00] LABS: Anisocytosis Present; Polychromasia 1+
[2021-06-25] MEDS ORDERED: HEPARIN SOD (PORCINE) 1000 UNIT/ML IV STA (18:10)
[2021-06-25] MEDS: ATORVASTATIN 40 MG TAB PO SCH (19:55)
[2021-06-25 20:21] LABS: Basophils # (auto) 0.02 K/uL (0-0.2); Basophils % (auto) 0.2 %; Eosinophils # (auto) 0.15 K/uL (0-0.5); Eosinophils % (auto) 1.2 %; Hematocrit (blood only) 26.4 % (37-47); Immature Granulocytes # (auto) 0.03 K/uL (0.00-0.02); Immature Granulocytes % (auto) 0.2 %; Lymphocytes # (auto) 0.75 K/uL (1.2-3.4); Lymphocytes % (auto) 6.1 %; Mean Corpuscular Hemoglobin 28.1 pg (25-34); Mean Corpuscular Hgb Conc 30.3 g/dL (32-36); Mean Corpuscular Volume 92.6 fL (80-100); Mean Platelet Volume 9.8 fL (7.4-10.4); Monocytes # (auto) 0.98 K/uL (0.11-0.59); Neutrophils # (auto) 10.27 K/uL (1.4-6.5); Neutrophils % (auto) 84.3 %; Nucleated RBC # (auto) 0.07 K/uL (0-0); Nucleated RBC % (auto) 0.6 %; Platelet Count 279 K/uL (130-400); RDW Coefficient of Variation 20.8 % (11.5-14.5); RDW Standard Deviation 67.8 fL (36.4-46.3); Red Blood Count 2.85 M/uL (4.2-5.4)
--- NOTE | 2021-06-25 20:30 | Hospitalist Progress Note ---
Date of Service June 25, 2021 Assessment & Plan (1) Non-ST elevation VA (NSTEMI): Plan: ASSESSMENT AND PLAN: This is a 55-year-old female who presents with agitation, chest pain, pain all over and found to be with non-ST elevated myocardial infarction and congestive heart failure. 1. Respiratory Distress: The patient is s/p intubation and mechanical ventilation, possibly secondary to congestive heart failure, received Lasix in ER -- self extubated 06/14, then reintubated 06/15 -- s/p trach placement 06/16 -- Then she was placed back on Vent support Possible Aspiration Pneumonia Completed 10 days course of Unasyn Chest x-ray last night showed significant interval improvement in left lung aeration. Bilateral airspace opacities, improved since prior exam. Small bilateral pleural effusions with probable mild pulmonary edema. Continue vent management as per baster hand CT chest on 06/24 showed moderate left and [id number] right pleural effusions. Near-complete opacification of the left lower lobe which could reflect subpleural atelectasis or pneumonia. Extensive right lower lobe and lingular opacities could reflect pneumonia or atelectasis. Continue vest percussive therapy 4 times daily given recurrent mucous plugging. Continue hypertonic saline. Continue Mucomyst twice daily. 2. Non-ST elevated myocardial infarction: Status post cardiac catheterization and stent to the proximal LAD lesion, post-cath care as per cardiology. Ischemic Cardiomyopathy -- s/p Cardiac Cath 06/[address] Hinojosa: 1. Severe multivessel vessel coronary artery disease -90% possibly acute proximal LAD stenosis. Patent mid LAD stent 100% chronic mid RCA occlusion. Distal vessel fills via [id number] collaterals. 2. Elevated intracardiac filling pressure. LVEDP 34 3. Severe obstructive abdominal aortic disease (unable to pass 5 Fr catheter across stenosis). 4. Successful PCI of proximal to mid LAD with single drug-eluting stent (3.0 x 18 mm Soham; postdilated with 3.5 NC, overlaps proximal aspect of prior stent). Echo with EF 25-30%. extensive wall motion abnormalities with the inferior wall being akinetic at the base on ASA, Plavix, Imdur-->changed to Nitropaste, IV Metoprolol, Lisinopril, Lipitor Continue Plavix , aspirin, metoprolol and statin Severe Dysphagia Failed swallow eval High risk for aspiration. Status post PEG placement performed by Dr. Aiedn Norris GI recommend to hold heparin drip for 24 hours, then resumed this morning Continue PEG tube feeding 3. Anemia, possible GI bleed -- Hemoglobin was 5.4 last admission, required 4 units of PRBCs. He was started on Protonix drip, now on IV PPI BID -- Hg 7.3 today -- GI not recommending EGD/Colonoscopy due to above -- Consider to transfuse if H/H drops below 7 -- Continue monitor H/H Right Arm DVT -- Heparin drip was on hold due to recent peg tub placement -- Heparin drip was transition to Xarelto 4. Elevated lactic acid and acidosis: Most likely from the acute coronary syndrome and respiratory distress. -- improved 5. The patient is on chronic pain medication. Oxycodone PRN Hypotension Patient was placed on pressor last night BP stable now off Levophed continue monitor BP Continue monitor BP 7. History of coronary artery disease. History of LAD stenting in the past as well as vasospastic angina 8. History of VT arrest due to coronary artery vasospasm versus acquired QT prolongation possible of azithromycin exposure, status post single chamber AICD. 9. History of peripheral vascular disease, superficial femoral artery occlusion, left subclavian artery stenosis. on aspirin and Plavix. 10. History of myotonic muscular dystrophy. PT, OT when stable. 11. History of pulmonary embolism. Coumadin was discontinued due to GI bleed in 2019. 12. History of left carotid endarterectomy in 2016. 13. History of chronic obstructive pulmonary disease: Continue her home inhalers. 14. History of seizures: On Keppra and phenytoin 15. History of diastolic congestive heart failure: per above 16. History of hypertension: 17. History of deep venous thrombosis prophylaxis: Will place on sequential compression devices for now because of possible gastrointestinal bleed. 18. Underweight Disposition Continue monitor in ICU Admission and Anticipated Discharge Date Admission Date: June 12, 2021 Subjective Patient was seen and examined for follow-up of respiratory distress Lying in bed on vent support. Son came from [place] to visit her Last night patient was bradycardia and became unresponsive Atropine was given with helped HR to improve Currently she seems comfortable Palliative care was consulted and met with patient. She would like to remain full code Review of Systems Review of Systems: All systems reviewed & are unremarkable except as noted in Subjective Physical Exam Physical Exam: General- No acute distress Head- atraumatic Eyes- PERRL, EOMI, ENT- +trach in placed Neck- supple, no JVD Lungs- clear to auscultation Heart- regular rhythm; no murmur Abdomen- normal bowel sounds, soft, nontender Extremities- no calf tenderness Neuro- alert, oriented x 3; PERRL, EOMI; no facial palsy; no dysarthria Skin- warm & dry Results & Data Results & Data ([facility]) Vital Signs (Past 12 Hours) Vital Signs Temp Pulse Pulse Resp BP BP Pulse Ox 06/25/21 20:26 88 34 H 95 06/25/21 18:06 37.9 C H 75 27 H 103/56 L 98 06/25/21 17:21 37.7 C H 74 16 101/52 L 98 06/25/21 16:08 38.2 C H 73 20 93/43 L 96 06/25/21 15:01 38.3 C H 79 16 98/56 L 97 06/25/21 14:48 80 22 96 06/25/21 14:14 38.3 C H 87 33 H 129/59 L 100 06/25/21 13:10 38.1 C H 78 133/66 100 06/25/21 12:10 38 C H 94 H 33 H 174/94 H 94 06/25/21 11:40 38 C H 95 H 36 H 166/93 H 94 06/25/21 11:25 38 C H 93 H 35 H 164/89 H 94 06/25/21 11:21 95 H 40 H 92 06/25/21 11:05 37.9 C H 88 28 H 135/73 93 06/25/21 11:02 37.9 C H 93 H 27 H 135/73 96 06/25/21 10:01 37.6 C H 81 26 H 110/58 L 100 06/25/21 09:54 37.5 C 84 26 H 129/62 86 L
[2021-06-25 20:43] LABS: Polychromasia 1+
[2021-06-26] MEDS: INSULIN ASPART 100 UNITS/ML 3 ML PEN SC SCH ×4 (00:17→18:10)
[2021-06-26] MEDS: oxyCODONE HCL SOLN 5 MG/5 ML UDC PO PRN ×4 (00:17→19:55)
[2021-06-26] MEDS: ACETAMINOPHEN SUSP 325 MG/10.15 ML UDC PEG PRN ×3 (00:17→12:10)
[2021-06-26] MEDS: TUBE FEEDING WATER FLUSH GT SCH ×6 (00:18→19:58)
[2021-06-26 01:13] LABS: Partial Thromboplastin Ratio 1.5; Partial Thromboplastin Time 40.6 Seconds (21.0-31.0)
[2021-06-26] MEDS: CEFEPIME 2,000 MG in SYRINGE 0 ML IV SCH ×3 (02:21→18:09)
[2021-06-26 05:08] LABS: Basophils # (auto) 0.02 K/uL (0-0.2); Basophils % (auto) 0.2 %; Eosinophils # (auto) 0.25 K/uL (0-0.5); Eosinophils % (auto) 2.4 %; Hematocrit (blood only) 26.7 % (37-47); Hemoglobin 8.1 g/dL (12.0-16.0); Immature Granulocytes # (auto) 0.04 K/uL (0.00-0.02); Immature Granulocytes % (auto) 0.4 %; Lymphocytes # (auto) 0.76 K/uL (1.2-3.4); Lymphocytes % (auto) 7.3 %; Mean Corpuscular Hemoglobin 28.3 pg (25-34); Mean Corpuscular Hgb Conc 30.3 g/dL (32-36); Mean Corpuscular Volume 93.4 fL (80-100); Monocytes # (auto) 1.02 K/uL (0.11-0.59); Monocytes % (auto) 9.8 %; Neutrophils # (auto) 8.31 K/uL (1.4-6.5); Neutrophils % (auto) 79.9 %; Nucleated RBC # (auto) 0.05 K/uL (0-0); Nucleated RBC % (auto) 0.5 %; Platelet Count 277 K/uL (130-400); RDW Coefficient of Variation 20.8 % (11.5-14.5); Red Blood Count 2.86 M/uL (4.2-5.4)
[2021-06-26] MEDS: PEPTAMEN 1.5 CAL 1,000 ML BAG GT SCH (05:21)
[2021-06-26 05:26] LABS: Alanine Aminotransferase 103 U/L (12-78); Albumin Level 1.7 gm/dl (3.4-5.0); Aspartate Aminotransferase 19 U/L (15-37); BUN Creatinine Ratio 68.3 (10-20); Bilirubin Direct 0.1 mg/dl (0-0.2); Blood Urea Nitrogen 17 mg/dl (7-18); Calcium 7.9 mg/dl (8.5-10.1); Carbon Dioxide 29 mmol/L (21-32); Chloride 112 mmol/L (98-107); Creatinine Clr Calc Pharmacy 173.5 ml/min; Est GFR (African American) > 150.0 ml/min; Est GFR (Non-African American) 134.2 ml/min; Glucose 129 mg/dl (70-99); Magnesium 2.5 mg/dl (1.8-2.4); Potassium 4.2 mmol/L (3.5-5.1); Sodium 142 mmol/L (136-145)
[2021-06-26 05:28] LABS: Alkaline Phosphatase 120 U/L (45-117); Bilirubin,Total 0.3 mg/dl (0.2-1); Partial Thromboplastin Ratio 1.7; Partial Thromboplastin Time 44.7 Seconds (21.0-31.0); Phosphorus 3.2 mg/dl (2.5-4.9); Total Protein 5.5 gm/dl (6.4-8.2)
[2021-06-26 05:54] LABS: Anisocytosis Present; Hypochromasia Present; Polychromasia 1+
[2021-06-26] MEDS: ACETYLCYSTEINE 20% INHAL SOLN 4ML ***DISPENSED BY RESP. INH SCH ×2 (08:00→19:50)
[2021-06-26] MEDS: SODIUM CHLOR 7% 4 ML NEB NEB SCH ×2 (08:00→19:49)
[2021-06-26] MEDS: ALBUT/IPRATROP 3MG/0.5MG NEB 3 ML VIAL NEB PRN ×2 (08:01→19:52)
[2021-06-26 08:15] LABS: Partial Thromboplastin Ratio 1.6
[2021-06-26] MEDS: UMECLIDINIUM/VILANTEROL 62.5/25MCG 7 PUFFS/INHALER INH SCH (08:22)
[2021-06-26] MEDS: FLUTICASONE FUROATE 100MCG 14 PUFFS/INHALER INH SCH (08:22)
[2021-06-26] MEDS: METOPROLOL TARTRATE 25 MG TAB PO SCH ×3 (08:24→19:58)
[2021-06-26] MEDS: PHENYTOIN 100 MG in SYRINGE 0 ML IV SCH ×3 (08:24→19:56)
[2021-06-26] MEDS: THIAMINE HCL 100 MG TAB PEG SCH ×2 (08:24→19:57)
[2021-06-26] MEDS: LANSOPRAZOLE 30 MG SOLTAB PEG SCH ×2 (08:24→19:57)
[2021-06-26] MEDS: levETIRAcetam ORAL SOLN 100MG/ML PO SCH ×2 (08:24→19:58)
[2021-06-26] MEDS: GABAPENTIN 250 MG/5 ML 470 ML BTL PO SCH ×3 (08:26→19:56)
[2021-06-26] MEDS: ASPIRIN 81 MG CHEW NG SCH (08:26)
[2021-06-26] MEDS: CLOPIDOGREL BISULFATE 75 MG TAB PO SCH (08:27)
[2021-06-26] MEDS: lisinopril 2.5 MG TAB PO SCH (08:27)
[2021-06-26] MEDS: PRIMIDONE 50 MG TAB PO SCH ×3 (08:27→19:57)
[2021-06-26] MEDS: SODIUM CHLORIDE 0.9% 10ML FLUSH IV SCH ×3 (08:28→19:57)
[2021-06-26] MEDS: FERROUS SULFATE 325 MG/7.4 ML UDP PO SCH ×2 (08:28→16:09)
[2021-06-26] MEDS: LORATADINE 10 MG TAB PO SCH (08:28)
[2021-06-26] MEDS: POTASSIUM CHLORIDE 20 MEQ/15 ML UDC PO SCH (08:28)
[2021-06-26] MEDS: FLUTICASONE PROPIONATE NA SPR 16 GM BTL SCH (08:28)
--- NOTE | 2021-06-26 09:52 | XRay Report ---
XR chest 1V portable CLINICAL HISTORY: SOB TECHNIQUE: Single frontal radiograph of the chest was obtained. Comparison: Comparison is made to chest one view 06/25/2021 FINDINGS: Single lead pacemaker defibrillator is unchanged. A tracheostomy tube is unchanged. The cardiomediast inal silhouette is stable. Redemonstration of bilateral, left greater than right airspace opacities. Moderate left pleural effusion and trace right pleural effusion is unchanged. No evidence of pneumoth orax. IMPRESSION: Redemonstration of left greater than right airspace opacities and left greater than right pleural eff usions. ACT 112: Negative or not required by law. Electronically signed by: Eber Hairston M.D. 06/26/2021 9:51 AM
--- NOTE | 2021-06-26 11:30 | Critical Care Progress Note ---
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 Now post cardiac catheter she received a single drug-eluting stent to the proximal LAD for 90% stenosis and is also being monitored for a GIB and acute hypoxic/hypercapnic respiratory failure, likely secondary to component of acute CHF and severe underlying COPD. She is hemodynamically stable. Recommendations: Neuro -continue Keppra, phenytoin, primidone. Continue Neurontin for her peripheral neuropathy. She is profoundly deconditioned and will require aggressive therapy PT OT and likely long-term acute care rehab. Will need to go to an LTAC. Cardiac -status post ST elevation AL with drug-eluting stent to the proximal LAD. Continue aspirin, Plavix, Lipitor and HAILEY inhibitor, metoprolol 12.5 mg 3 times daily. Appreciate cardiology assistance. Hemodynamically stable. Continue gentle Lasix as tolerated. History of Prinzmetal's angina, but holding nitrates and calcium channel blockers currently. Echo from 06/12/2021 with an EF of 25 to 30%. Moderate tricuspid regurg. RVSP 40 to 50 mmHg. Extensive wall motion abnormalities of the left ventricle. Currently on heparin due to extensive DVTs. Respiratory -presumptive history of COPD. Continue Incruse Ellipta. Required multiple intubations and currently is trached. Status post tracheostomy 06/16/2021. We will hold on trach collar trials today given her episode of apnea. Continue present support via ventilator. CT chest concerning for mucous plugging and bilateral effusions with atelectasis. Continue vest percussive therapy 4 times daily given recurrent mucous plugging. Continue hypertonic priscila ine. Continue Mucomyst twice daily. Plan is to perform bronchoscopy. Heparin drip on hold. Pressure support has been increased to 10/5 due to dyspnea and low tidal volumes. GI -status post EGD 06/21/2021. No obvious bleeding. PEG tube placed and receiving tube feeds via PEG tube at this time. Transaminitis improving. Likely related to shock liver. He has a prior history of aspiration. RENAL/LYTES -no significant issues at present. Urine output remains adequate. 4 L positive since admission. We will give 20 mg of IV Lasix today and follow the response. - Foleystrict I's and O's ENDO -glycemic control per protocol HEME -She also likely has a component of anemia of chronic disease. 1 packed RBC given 06/25/2021. An extensive nonocclusive DVT noted in the right upper extremity. Occlusive superficial venous thrombus is seen within the basilic vein. ID -Patient continues to spike low-grade temperatures which may be related to her DVT. Bilateral effusions present appear to be related to volume overload. Doubt infectious in origin. Will perform repeat bronchoscopy with cultures. Bronchoscopy cultures from 06/16/2021 growing Adrianne albicans. Likely contaminant. Urine cultures with lactobacillus species. Will initiate cefepime 06/24/2021. MRSA screen ordered. Prior MRSA screen is negative. Pro-Armando 06/24/2021 -. Blood cultures and urinalysis unremarkable. LINES/IV ACCESS - Right IJ CVL in place. DVT PROPHYLAXIS - SCDs,Heparin ggt CRITICAL CARE TIME - I have personally spent 38 minutes of critical care time in the direct management of this patient. This is a life/limb threatening event. This includes time spent evaluating patient, direct bedside care, chart review, placing orders, interpretation of diagnostic studies, discussion with consultants, patient, and family members, as well as other required patient management activities. This time is exclusive of all separately billable procedures, and teaching time and separate from and in addition to any other critical care service time. Admission and Anticipated Discharge Date Admission Date: June 12, 2021 Subjective Patient seen and examined. Continues to have shortness of breath tachypnea. Currently on support trials. No significant events overnight. Review of Systems Review of Systems: All systems reviewed & are unremarkable except as noted in HPI & below Physical Exam Physical Exam: General: Alert. nontoxic. Skin: Warm, dry, Head: Atraumatic. Ears, nose, mouth and throat: Tracheostomy present Cardiovascular: Regular rate and rhythm. No murmurs. Left upper extremity edema. Respiratory: Diffuse crackles. Diminished at the bases bilaterally. Gastrointestinal: Non distended PEG tube present Musculoskeletal: No deformity Results & Data Results & Data ([facility]) Vital Signs (Past 12 Hours) Vital Signs Temp Pulse Pulse Resp BP BP BP 06/26/21 10:01 99.7 F H 77 26 H 125/67 06/26/21 09:01 99.1 F 84 33 H 144/75 H 06/26/21 08:46 99.1 F 86 38 H 144/77 H 06/26/21 08:03 80 23 06/26/21 07:01 98.8 F 79 18 117/57 L 06/26/21 05:00 99.1 F 80 20 116/59 L 06/26/21 04:00 99.0 F 82 17 130/66 06/26/21 03:00 98.8 F 79 26 H 132/66 06/26/21 02:52 82 20 06/26/21 02:00 99.0 F 71 21 95/49 L 06/26/21 01:00 99.3 F 72 24 101/50 L 06/26/21 00:00 99.7 F H 81 30 H 125/63 06/25/21 23:59 81 Pulse Ox 06/26/21 10:01 99 06/26/21 09:01 95 06/26/21 08:46 91 06/26/21 08:03 100 06/26/21 07:01 100 06/26/21 05:00 96 06/26/21 04:00 98 06/26/21 03:00 100 06/26/21 02:52 98 06/26/21 02:00 100 06/26/21 01:00 100 06/26/21 00:00 96 06/25/21 23:59 Chest x-ray reviewed. Left greater than right opacities. Bilateral effusions. Coding Level of Care Code Critical Care 1st 30-74 mins Diagnoses Tracheostomy dependence Z93.0 Mucoid impaction of bronchi T17.500A Non-ST elevation AL (NSTEMI) I21.4 CHF (congestive heart failure) I50.9 Heart failure chronicity: acute Heart failure type: unspecified GI bleed K92.2 Acidemia E87.2 Respiratory failure with hypoxia and hypercapnia J96.21; J96.22 Chronicity: acute on chronic Pacemaker Z95.0 Anemia D64.89 Anemia type: other cause Other causes of anemia: other cause, not classified Syncope R55 Syncope type: unspecified H/O diastolic dysfunction Z86.79 PAD (peripheral artery disease) I73.9 Presence of stent in LAD coronary artery Z95.5 Cellulitis L03.90 Prinzmetal angina I20.1 Postoperative deep vein thrombosis T81.89XA; I82.409 Steinert myotonic dystrophy syndrome G71.11 Time Spent (min) 38 (1) CHF (congestive heart failure) Heart failure chronicity: acute Heart failure type: unspecified Qualified Code(s): I50.9 - Heart failure, unspecified (2) Respiratory failure with hypoxia and hypercapnia Chronicity: acute on chronic Qualified Code(s): J96.21 - Acute and chronic respiratory failure with hypoxia; J96.22 - Acute and chronic respiratory failure with hypercapnia (3) Anemia Anemia type: other cause Other causes of anemia: other cause, not classified Qualified Code(s): D64.89 - Other specified anemias (4) Syncope Syncope type: unspecified Qualified Code(s): R55 - Syncope and collapse
[2021-06-26] MEDS ORDERED: MIDAZOLAM HCL 5 MG/ML 1 ML VIAL ONE (14:23)
[2021-06-26] MEDS ORDERED: fentaNYL citrate 100 MCG/2 ML VIAL ONE ×2 (14:24→21:35)
[2021-06-26] MEDS ORDERED: NOREPINEPHRINE/D5W 8 MG/508 ML IV ONE (14:24)
[2021-06-26] MEDS ORDERED: FAMOTIDINE 20 MG in SYRINGE 3 ML IV ONE (14:30)
[2021-06-26] MEDS ORDERED: fentaNYL citrate 100 MCG/2 ML VIAL IV STA ×2 (15:55→21:44)
[2021-06-26] MEDS ORDERED: MIDAZOLAM HCL 5 MG/ML 1 ML VIAL IV STA (15:55)
--- NOTE | 2021-06-26 16:05 | Procedure Note ---
Procedure Note Date of Service June 26, 2021 Note INDICATION: Evaluate for mucous plugging and infectious etiology PROCEDURE: Informed consent was obtained from the patient and signed by the patient. Consent was witnessed by the nurse. She understands the risks and benefits. Timeout was performed prior to the procedure. 3 mg of Versed and 75 mcg of fentanyl were utilized in sequential aliquots to achieve sedation. Patient's FiO2 was increased to 100% prior to the procedure. The bronchoscope was inserted via the size 6 Shiley tracheostomy. Tracheostomy appeared to be in adequate position. Carol appeared normal. Inspection of the tracheobronchial tree to the segmental region was completed bilaterally. Thick mucoid secretions were noted in the bilateral lower lobes which were aspirated. A BAL was performed of the left lower lobe with 60 mL of saline. 35 mL of thick white secretions were aspirated back. The scope was then withdrawn. Patient tolerated the procedure well. Recommendations: Follow culture data from bronchoscopy. Restart heparin in 2 hours. Restart tube feeds in 2 hours. Chest x-ray pending. Coding CPT Codes Pulmonary/Thoracic - Pulmonary and Thoracic: 59758 Bronchoscopy, clear airways ([id number]) Pulmonary/Thoracic - Pulmonary and Thoracic: 13792 Dx bronchoscopy/BAL ([id number]) [facility] Procedure Codes (Charges) Pulmonary/Thoracic Procedure 1: Pulmonary and Thoracic: 82367 Bronchoscopy, clear airways Procedure 2: Pulmonary and Thoracic: 62377 Dx bronchoscopy/BAL
--- NOTE | 2021-06-26 16:27 | XRay Report ---
XR KUB/Abdomen 1 view CLINICAL HISTORY: abdominal pain TECHNIQUE: 1 view of the abdomen was obtained. Comparison: Comparison is made to abdomen one view 06/11/2021 FINDINGS: A gastrostomy tube is in place. The osseous structures are grossly unremarkable. The bowel gas patter n is nonobstructive. Small stool burden is seen. IMPRESSION: Nonobstructive bowel gas pattern. ACT 112: Negative or not required by law. Electronically signed by: Eber Hairston M.D. 06/26/2021 4:25 PM
--- NOTE | 2021-06-26 16:28 | XRay Report ---
XR chest 1V portable CLINICAL HISTORY: post bronch TECHNIQUE: Single frontal radiograph of the chest was obtained. Comparison: None available at the time of this dictation. FINDINGS: Tracheostomy tube, single lead pacemaker defibrillator, and right internal carotid venous catheter ar e unchanged in position. The cardiomediastinal silhouette is stable. Bilateral lower lung predominant airspace opacities are seen. Bibasilar pleural effusions are seen. IMPRESSION: Stable exam with redemonstration of bilateral lower lung airspace opacities and left greater than rig ht pleural effusions. ACT 112: Negative or not required by law. Electronically signed by: Eber Hairston M.D. 06/26/2021 4:27 PM
--- NOTE | 2021-06-26 17:14 | Hospitalist Progress Note ---
Date of Service June 26, 2021 delayed entry date of service noted above Assessment & Plan (1) Non-ST elevation TN (NSTEMI): Plan: per Dr. Acuña's notes with addendum ASSESSMENT AND PLAN: This is a 55-year-old female who presents with agitation, chest pain, pain all over and found to be with non-ST elevated myocardial infarction and congestive heart failure. 1. Respiratory Distress: The patient is s/p intubation and mechanical ventilation, possibly secondary to congestive heart failure, received Lasix in ER -- self extubated 06/14, then reintubated 06/15 -- s/p trach placement 06/16 -- Then she was placed back on Vent support Possible Aspiration Pneumonia Completed 10 days course of Unasyn Chest x-ray last night showed significant interval improvement in left lung aeration. Bilateral airspace opacities, improved since prior exam. Small bilater al pleural effusions with probable mild pulmonary edema. 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 Near-complete opacification of the left lower lobe which could reflect subpleural atelectasis or pneumonia. Extensive right lower lobe and lingular opacities could reflect pneumonia or atelectasis. Continue vest percussive therapy 4 times daily given recurrent mucous plugging. Continue hypertonic saline. Continue Mucomyst twice daily. [facility] Cefepime IV for Bronchoscopy 2. Non-ST elevated myocardial infarction: Status post cardiac catheterization and stent to the proximal LAD lesion, post-cath care as per cardiology. Ischemic Cardiomyopathy -- s/p Cardiac Cath 06/[address] Hinojosa: 1. Severe multivessel vessel coronary artery disease -90% possibly acute proximal LAD stenosis. Patent mid LAD stent 100% chronic mid RCA occlusion. Distal vessel fills via [id number] collaterals. 2. Elevated intracardiac filling pressure. LVEDP 34 3. Severe obstructive abdominal aortic disease (unable to pass 5 Fr catheter across stenosis). 4. Successful PCI of proximal to mid LAD with single drug-eluting stent (3.0 x 18 mm Soham; postdilated with 3.5 NC, overlaps proximal aspect of prior stent). Echo with EF 25-30%. extensive wall motion abnormalities with the inferior wall being akinetic at the base on ASA, Plavix, Imdur-->changed to Nitropaste, IV Metoprolol, Lisinopril, Lipitor Continue Plavix , aspirin, metoprolol and statin 06/26 -- no cardiac symptoms Severe Dysphagia Failed swallow eval High risk for aspiration. Status post PEG placement performed by Dr. Aiden Norris Continue PEG tube feeding 06/26 no issues 3. Anemia, possible GI bleed -- Hemoglobin was 5.4 last admission, required 4 units of PRBCs. He was started on Protonix drip, now on IV PPI BID -- Hg 7.3 today -- GI not recommending EGD/Colonoscopy due to above -- Consider to transfuse if H/H drops below 7 06/26 hg stable at 8.1 Right Arm DVT -- on Heparin drip 4. Elevated lactic acid and acidosis: Most likely from the acute coronary syndrome and respiratory distress. -- improved 5. The patient is on chronic pain medication. Oxycodone PRN 7. History of coronary artery disease. History of LAD stenting in the past as well as vasospastic angina 8. History of VT arrest due to coronary artery vasospasm versus acquired QT prolongation possible of azithromycin exposure, status post single chamber AICD. 9. History of peripheral vascular disease, superficial femoral artery occlusion, left subclavian artery stenosis. on aspirin and Plavix. 10. History of myotonic muscular dystrophy. PT, OT when stable. 11. History of pulmonary embolism. Coumadin was discontinued due to GI bleed in 2019. 12. History of left carotid endarterectomy in 2015. 13. History of chronic obstructive pulmonary disease: Continue her home inhalers. 14. History of seizures: On Keppra and phenytoin 15. History of diastolic congestive heart failure: per above 16. History of hypertension: 17. History of deep venous thrombosis prophylaxis: Will place on sequential compression devices for now because of possible gastrointestinal bleed. 18. Underweight Disposition Continue monitor in ICU Admission and Anticipated Discharge Date Admission Date: June 12, 2021 Subjective ff up for respiratory failure, etc patient on [facility] vent awake, able to nod/shake her head no chest pain, dyspnea, palpitations, dizziness no abdominal pain, nausea/vomiting has some back pain no other issues Review of Systems Review of Systems: all noted and negative except for above Physical Exam Physical Exam: General-awake, not in distress,breathing with no effort or accessory muscle use Eyes- anicteric Neck- no JVD trach in place- no bleeding/discharge Lungs- (+) crackles bilaterally anteriorly Heart- normal rate, regular rhythm; no murmurs Abdomen- normal bowel sounds, nondistended, soft, nontender Extremities- no pretibial edema, no calf tenderness Neuro- alert; nonew gross focal neurologic deficits Skin- warm & dry Results & Data Results & Data ([facility]) Vital Signs (Past 12 Hours) Vital Signs Temp Pulse Pulse Pulse Resp BP BP 06/26/21 16:10 81 24 06/26/21 15:57 36.7 C 80 24 108/51 L 06/26/21 15:50 37.2 C 85 22 155/68 H 06/26/21 15:46 37.1 C 82 21 158/95 H 06/26/21 15:43 37.3 C 72 28 H 98/53 L 06/26/21 15:40 37.2 C 76 24 107/55 L 06/26/21 15:34 37.3 C 81 33 H 122/60 06/26/21 15:01 37.3 C 77 24 115/57 L 06/26/21 14:01 37.4 C 69 69 20 83/52 L 06/26/21 13:01 37.5 C 76 29 H 118/57 L 06/26/21 12:01 37.6 C H 80 29 H 121/61 06/26/21 11:45 78 33 H 06/26/21 11:01 37.6 C H 78 29 H 127/64 06/26/21 10:01 37.6 C H 77 26 H 125/67 06/26/21 09:01 37.3 C 84 33 H 144/75 H 06/26/21 08:46 37.3 C 86 38 H 144/77 H 06/26/21 08:03 80 23 06/26/21 07:01 37.1 C 79 18 117/57 L Pulse Ox 06/26/21 16:10 91 06/26/21 15:57 90 06/26/21 15:50 100 06/26/21 15:46 100 06/26/21 15:43 99 06/26/21 15:40 100 06/26/21 15:34 100 06/26/21 15:01 98 06/26/21 14:01 100 10/27/21 13:01 95 06/26/21 12:01 100 06/26/21 11:45 96 06/26/21 11:01 100 06/26/21 10:01 99 06/26/21 09:01 95 06/26/21 08:46 91 06/26/21 08:03 100 06/26/21 07:01 100 all noted and reviewed including below
[2021-06-26] MEDS ORDERED: FUROSEMIDE INJ 20 MG/2 ML VIAL IV ONE (17:45)
[2021-06-26] MEDS: HEPARIN SODIUM/DEXTROSE 25,000 UNITS/500 ML BAG IV SCH (18:09)
[2021-06-26] MEDS: ATORVASTATIN 40 MG TAB PO SCH (19:57)
[2021-06-26] MEDS ORDERED: MIDAZOLAM HCL 1 MG/ML 2ML VIAL IV STA (21:44)
[2021-06-27] MEDS: oxyCODONE HCL SOLN 5 MG/5 ML UDC PO PRN ×6 (00:01→22:39)
[2021-06-27] MEDS: ACETAMINOPHEN SUSP 325 MG/10.15 ML UDC PEG PRN ×2 (00:01→05:00)
[2021-06-27] MEDS: INSULIN ASPART 100 UNITS/ML 3 ML PEN SC SCH ×5 (00:08→23:15)
[2021-06-27 00:39] LABS: Partial Thromboplastin Ratio 1.6; Partial Thromboplastin Time 41.6 Seconds (21.0-31.0)
[2021-06-27] MEDS: TUBE FEEDING WATER FLUSH GT SCH ×6 (01:25→20:50)
[2021-06-27] MEDS: CEFEPIME 2,000 MG in SYRINGE 0 ML IV SCH ×3 (01:25→18:09)
[2021-06-27 05:27] LABS: Basophils # (auto) 0.01 K/uL (0-0.2); Basophils % (auto) 0.1 %; Eosinophils # (auto) 0.22 K/uL (0-0.5); Eosinophils % (auto) 2.5 %; Hematocrit (blood only) 25.7 % (37-47); Hemoglobin 7.7 g/dL (12.0-16.0); Immature Granulocytes # (auto) 0.04 K/uL (0.00-0.02); Immature Granulocytes % (auto) 0.4 %; Lymphocytes # (auto) 0.73 K/uL (1.2-3.4); Lymphocytes % (auto) 8.2 %; Mean Corpuscular Hemoglobin 28.5 pg (25-34); Mean Corpuscular Volume 95.2 fL (80-100); Mean Platelet Volume 10.2 fL (7.4-10.4); Monocytes # (auto) 0.84 K/uL (0.11-0.59); Monocytes % (auto) 9.4 %; Neutrophils # (auto) 7.05 K/uL (1.4-6.5); Neutrophils % (auto) 79.4 %; Nucleated RBC # (auto) 0.03 K/uL (0-0); Nucleated RBC % (auto) 0.4 %; Platelet Count 306 K/uL (130-400); RDW Coefficient of Variation 20.9 % (11.5-14.5); RDW Standard Deviation 68.6 fL (36.4-46.3); White Blood Count 8.89 K/uL (4.8-10.8)
[2021-06-27 05:58] LABS: Blood Urea Nitrogen 17 mg/dl (7-18); Calcium 7.9 mg/dl (8.5-10.1); Carbon Dioxide 27 mmol/L (21-32); Chloride 107 mmol/L (98-107); Creatinine Clr Calc Pharmacy 212.5 ml/min; Est GFR (African American) > 150.0 ml/min; Est GFR (Non-African American) 143.9 ml/min; Glucose 117 mg/dl (70-99); Magnesium 2.4 mg/dl (1.8-2.4); Sodium 139 mmol/L (136-145)
[2021-06-27 05:59] LABS: Phosphorus 3.1 mg/dl (2.5-4.9)
--- NOTE | 2021-06-27 06:13 | Electrocardiogram Report ---
Test Reason : Blood Pressure : / mmHG Vent. Rate : 075 BPM Atrial Rate : 075 BPM P-R Int : 158 ms QRS Dur : 088 ms QT Int : 418 ms P-R-T Axes : 046 036 185 degrees QTc Int : 466 ms Normal sinus rhythm Possible Left atrial enlargement T wave abnormality, consider inferolateral ischemia Prolonged QT Abnormal ECG When compared with ECG of 21-JUN-2021 18:35, No significant change was found Confirmed by Dawson Shirley ([id number]) on 06/27/2021 6:13:15 AM Referred By: REFERRED SELF Confirmed By:Dawson Shirley
[2021-06-27 06:28] LABS: Anisocytosis Present; Polychromasia 1+
[2021-06-27] MEDS: ACETYLCYSTEINE 20% INHAL SOLN 4ML ***DISPENSED BY RESP. INH SCH ×2 (07:36→19:57)
[2021-06-27] MEDS: SODIUM CHLOR 7% 4 ML NEB NEB SCH ×2 (07:36→19:55)
[2021-06-27] MEDS ORDERED: FUROSEMIDE INJ 20 MG/2 ML VIAL IV ONE (08:09)
[2021-06-27 08:11] LABS: Partial Thromboplastin Time 51.8 Seconds (21.0-31.0)
[2021-06-27] MEDS: PHENYTOIN 100 MG in SYRINGE 0 ML IV SCH ×3 (09:09→20:48)
[2021-06-27] MEDS: levETIRAcetam ORAL SOLN 100MG/ML PO SCH ×2 (09:09→20:50)
--- NOTE | 2021-06-27 09:09 | XRay Report ---
XR chest 1V portable HISTORY: 55 years-old Female Resp failure acute respiratory failure COMPARISON: Chest radiograph 06/26/2021 TECHNIQUE: Portable AP view of the chest FINDINGS: Cardiomediastinal and hilar silhouettes are unchanged. Calcified plaque of the thoracic aorta. Right IJ central venous catheter distal tip is noted in the expected location of the upper SVC. Unchanged p ositioning of the tracheostomy cannula. Left subclavian pacer/AICD. No pneumothorax. Pulmonary vascul ar congestion with interstitial coarsening. Layering pleural effusions, left greater the right with b ibasilar opacities, without significant change. Degenerative changes of the shoulders and spine. IMPRESSION: 1. Cardiomegaly with pulmonary edema. 2. Left greater than right pleural effusions with bibasilar consolidation appears generally stable. ACT 112: Negative or not required by law. The above report was generated using voice recognition software. It may contain grammatical, syntax o r spelling errors. Electronically signed by: Freeman Nelson M.D. 06/27/2021 9:08 AM
[2021-06-27] MEDS: METOPROLOL TARTRATE 25 MG TAB PO SCH ×3 (09:10→20:49)
[2021-06-27] MEDS: CLOPIDOGREL BISULFATE 75 MG TAB PO SCH (09:10)
[2021-06-27] MEDS: LANSOPRAZOLE 30 MG SOLTAB PEG SCH ×2 (09:10→20:49)
[2021-06-27] MEDS: THIAMINE HCL 100 MG TAB PEG SCH ×2 (09:10→20:49)
[2021-06-27] MEDS: LORATADINE 10 MG TAB PO SCH (09:10)
[2021-06-27] MEDS: PRIMIDONE 50 MG TAB PO SCH ×3 (09:10→20:49)
[2021-06-27] MEDS: lisinopril 2.5 MG TAB PO SCH (09:11)
[2021-06-27] MEDS: GABAPENTIN 250 MG/5 ML 470 ML BTL PO SCH ×3 (09:13→20:50)
[2021-06-27] MEDS: FLUTICASONE PROPIONATE NA SPR 16 GM BTL SCH (09:14)
[2021-06-27] MEDS: FLUTICASONE FUROATE 100MCG 14 PUFFS/INHALER INH SCH (09:14)
[2021-06-27] MEDS: ASPIRIN 81 MG CHEW NG SCH (09:15)
[2021-06-27] MEDS: UMECLIDINIUM/VILANTEROL 62.5/25MCG 7 PUFFS/INHALER INH SCH (09:15)
[2021-06-27] MEDS: SODIUM CHLORIDE 0.9% 10ML FLUSH IV SCH ×3 (09:15→20:48)
[2021-06-27] MEDS: FERROUS SULFATE 325 MG/7.4 ML UDP PO SCH ×2 (09:15→18:05)
[2021-06-27] MEDS: ALBUT/IPRATROP 3MG/0.5MG NEB 3 ML VIAL NEB PRN ×2 (10:42→19:57)
[2021-06-27] MEDS: HEPARIN SODIUM/DEXTROSE 25,000 UNITS/500 ML BAG IV SCH ×2 (12:15→16:55)
--- NOTE | 2021-06-27 12:19 | Critical Care Progress Note ---
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 Now post cardiac catheter she received a single drug-eluting stent to the proximal LAD for 90% stenosis and is also being monitored for a GIB and acute hypoxic/hypercapnic respiratory failure, likely secondary to component of acute CHF and severe underlying COPD. She is hemodynamically stable. Recommendations: Neuro -continue Keppra, phenytoin, primidone. Continue Neurontin for her peripheral neuropathy. She is profoundly deconditioned and will require aggressive therapy PT OT and likely long-term acute care rehab. Will need to go to an LTAC. Cardiac -status post ST elevation [place] with drug-eluting stent to the proximal LAD. Continue aspirin, Plavix, Lipitor and HAILEY inhibitor, metoprolol 12.5 mg 3 times daily. Appreciate cardiology assistance. Hemodynamically stable. Continue gentle Lasix as tolerated. History of Prinzmetal's angina, but holding nitrates and calcium channel blockers currently. Echo from 06/12/2021 with an EF of 25 to 30%. Moderate tricuspid regurg. RVSP 40 to 50 mmHg. Extensive wall motion abnormalities of the left ventricle. Currently on heparin due to extensive DVTs. Continue as needed diuretics. Respiratory -presumptive history of COPD. Continue Incruse Ellipta. Required multiple intubations and currently is trached. Status post tracheostomy 06/16/2021. We will hold on trach collar trials today given her episode of apne a. Continue present support via ventilator. CT chest concerning for mucous plugging and bilateral effusions with atelectasis. Continue vest percussive therapy 4 times daily given recurrent mucous plugging. Continue hypertonic saline. Continue Mucomyst twice daily. Bronchoscopy performed 06/26/2021. Thick mucoid impaction noted in the bilateral lower lobes. Cultures negative to date. Will attempt tracheostomy collar trials today. GI -status post EGD 06/21/2021. No obvious bleeding. PEG tube placed and receiving tube feeds via PEG tube at this time. Transaminitis improving. Likely related to shock liver. RENAL/LYTES -no significant issues at present. Urine output remains adequate. Continue as needed diuretics due to positive fluid state. - Foleystrict I's and O's ENDO -glycemic control per protocol HEME -She also likely has a component of anemia of chronic disease. 1 packed RBC given 06/25/2021. An extensive nonocclusive DVT noted in the right upper extremity. Occlusive superficial venous thrombus is seen within the basilic vein. Currently on heparin infusion. DVT despite Xarelto. Will transition to Lovenox if she continues to demonstrate stability over the next 1 to 2 days. ID -repeat bronchoscopy cultures from 06/26/2021 - to date. Bronchoscopy cultures from 06/16/2021 growing Adrianne albicans. Likely contaminant. Urine cultures with lactobacillus species. Continue cefepime for total of 7 days. MRSA screen ordered. Prior MRSA screen is negative. Pro-Armando 06/24/2021 -. Blood cultures and urinalysis unremarkable. LINES/IV ACCESS - Right IJ CVL in place. DVT PROPHYLAXIS - SCDs,Heparin ggt CRITICAL CARE TIME - I have personally spent 33 minutes of critical care time in the direct management of this patient. This is a life/limb threatening event. This includes time spent evaluating patient, direct bedside care, chart review, placing orders, interpretation of diagnostic studies, discussion with consultants, patient, and family members, as well as other required patient management activities. This time is exclusive of all separately billable procedures, and teaching time and separate from and in addition to any other critical care service time. Admission and Anticipated Discharge Date Admission Date: June 12, 2021 Subjective Patient seen and examined this morning. She had tachypnea and increased anxiety overnight. Received several boluses of Versed and fentanyl due to anxiety and tachypnea. Review of Systems Review of Systems: All systems reviewed & are unremarkable except as noted in HPI & below Physical Exam Physical Exam: General: Alert. nontoxic. Skin: Warm, dry, Head: Atraumatic. Ears, nose, mouth and throat: Tracheostomy present Cardiovascular: Regular rate and rhythm. No murmurs. Left upper extremity edema. Respiratory: Diffuse crackles. Diminished at the bases bilaterally. Gastrointestinal: Non distended PEG tube present Musculoskeletal: No deformity Results & Data Results & Data ([facility]) Vital Signs (Past 12 Hours) Vital Signs Temp Pulse Pulse Resp BP Pulse Ox 06/27/21 11:31 99.3 F 88 26 H 137/63 97 06/27/21 10:42 81 32 H 91 06/27/21 08:00 75 06/27/21 07:35 75 24 95 06/27/21 06:00 98.6 F 80 21 116/59 L 99 06/27/21 05:00 98.8 F 80 23 133/63 94 06/27/21 04:00 98.8 F 78 15 115/60 91 06/27/21 03:48 77 16 94 06/27/21 03:00 99.0 F 75 20 136/72 94 06/27/21 02:00 99.1 F 73 21 85/48 L 92 06/27/21 01:00 99.7 F H 80 25 H 126/59 L 93 06/27/21 00:30 99.7 F H 75 21 93 Vital signs, labs and imaging reviewed Coding Level of Care Code Critical Care 1st 30-74 mins Diagnoses Tracheostomy dependence Z93.0 Mucoid impaction of bronchi T17.500A Non-ST elevation [place] (NSTEMI) I21.4 CHF (congestive heart failure) I50.9 Heart failure chronicity: acute Heart failure type: unspecified GI bleed K92.2 Acidemia E87.2 Respiratory failure with hypoxia and hypercapnia J96.21; J96.22 Chronicity: acute on chronic Pacemaker Z95.0 Anemia D64.89 Anemia type: other cause Other causes of anemia: other cause, not classified Syncope R55 Syncope type: unspecified H/O diastolic dysfunction Z86.79 PAD (peripheral artery disease) I73.9 Presence of stent in LAD coronary artery Z95.5 Cellulitis L03.90 Prinzmetal angina I20.1 Postoperative deep vein thrombosis T81.89XA; I82.409 Steinert myotonic dystrophy syndrome G71.11 Time Spent (min) 33 (1) CHF (congestive heart failure) Heart failure chronicity: acute Heart failure type: unspecified Qualified Code(s): I50.9 - Heart failure, unspecified (2) Respiratory failure with hypoxia and hypercapnia Chronicity: acute on chronic Qualified Code(s): J96.21 - Acute and chronic respiratory failure with hypoxia; J96.22 - Acute and chronic respiratory failure with hypercapnia (3) Anemia Anemia type: other cause Other causes of anemia: other cause, not classified Qualified Code(s): D64.89 - Other specified anemias (4) Syncope Syncope type: unspecified Qualified Code(s): R55 - Syncope and collapse
[2021-06-27 14:33] LABS: Cdiff Antigen Negative; Cdiff Toxin A+B Negative Cdiff Toxin (Negative)
--- NOTE | 2021-06-27 16:11 | Hospitalist Progress Note ---
Date of Service June 27, 2021 Assessment & Plan (1) Non-ST elevation [place] (NSTEMI): Plan: per Dr. Acuña's notes with addendum ASSESSMENT AND PLAN: This is a 55-year-old female who presents with agitation, chest pain, pain all over and found to be with non-ST elevated myocardial infarction and congestive heart failure. 1. Respiratory Distress: The patient is s/p intubation and mechanical ventilation, possibly secondary to congestive heart failure, received Lasix in ER -- self extubated 06/14, then reintubated 06/15 -- s/p trach placement 06/16 -- Then she was placed back on Vent support Possible Aspiration Pneumonia Completed 10 days course of Unasyn Chest x-ray last night showed significant interval improvement in left lung aeration. Bilateral airspace opacities, improved since prior exam. Small bilateral pleural effusions with probable mild pulmonary edema. Continue vent management as per bell ringer CT chest on 06/24 showed moderate left and [id number] right pleural effusions. Near-complete opacification of the left lower lobe which could reflect subpleural atelectasis or pneumonia. Extensive right lower lobe and lingular opacities could reflect pneumonia or atelectasis. Continue vest percussive therapy 4 times daily given recurrent mucous plugging. Continue hypertonic saline. Continue Mucomyst twice daily. 06/27 s/p Bronch cultures pending off mech vent continue trach management per Intesivist 2. Non-ST elevated myocardial infarction: Status post cardiac catheterization and stent to the proximal LAD lesion, post-cath care as per cardiology. Ischemic Cardiomyopathy -- s/p Cardiac Cath 06/[address] Hinojosa: 1. Severe multivessel vessel coronary artery disease -90% possibly acute proximal LAD stenosis. Patent mid LAD stent 100% chronic mid RCA occlusion. Distal vessel fills via [id number] collaterals. 2. Elevated intracardiac filling pressure. LVEDP 34 3. Severe obstructive abdominal aortic disease (unable to pass 5 Fr catheter across stenosis). 4. Successful PCI of proximal to mid LAD with single drug-eluting stent (3.0 x 18 mm [place]; postdilated with 3.5 NC, overlaps proximal aspect of prior stent). Echo with EF 25-30%. extensive wall motion abnormalities with the inferior wall being akinetic at the base on ASA, Plavix, Imdur-->changed to Nitropaste, IV Metoprolol, Lisinopril, Lipitor Continue Plavix , aspirin, metoprolol and statin 06/27 -- no cardiac symptoms Severe Dysphagia Failed swallow eval High risk for aspiration. Status post PEG placement performed by Dr. Aiden Norris Continue PEG tube feeding 06/27 no issues 3. Anemia, possible GI bleed -- Hemoglobin was 5.4 last admission, required 4 units of PRBCs. He was started on Protonix drip, now on IV PPI BID -- Hg 7.3 today -- GI not recommending EGD/Colonoscopy due to above -- Consider to transfuse if H/H drops below 7 06/27 hg 7.7 no signs of bleeding monitor closely Right Arm DVT -- on Heparin drip 4. Elevated lactic acid and acidosis: Most likely from the acute coronary syndrome and respiratory distress. -- improved 5. The patient is on chronic pain medication. Oxycodone PRN 7. History of coronary artery disease. History of LAD stenting in the past as well as vasospastic angina 8. History of VT arrest due to coronary artery vasospasm versus acquired QT prolongation possible of azithromycin exposure, status post single chamber AICD. 9. History of peripheral vascular disease, superficial femoral artery occlusion, left subclavian artery stenosis. on aspirin and Plavix. 10. History of myotonic muscular dystrophy. PT, OT when stable. 11. History of pulmonary embolism. Coumadin was discontinued due to GI bleed in 2019. 12. History of left carotid endarterectomy in 2015. 13. History of chronic obstructive pulmonary disease: Continue her home inhalers. 14. History of seizures: On Keppra and phenytoin 15. History of diastolic congestive heart failure: per above 16. History of hypertension: 17. History of deep venous thrombosis prophylaxis: Will place on sequential compression devices for now because of possible gastrointestinal bleed. 18. Underweight Disposition Continue monitor in ICU Admission and Anticipated Discharge Date Admission Date: June 12, 2021 Subjective ff up for respiratory failure, etc seen with son visiting at bedside off ventilator sitting up, alert, tries to speak, also writes on her notebook to communicate states she feels a little better today no chest pain, dyspnea, palpitations, dizziness reports back pain no other issues Review of Systems Review of Systems: all noted and negative except for above Physical Exam Physical Exam: General- oriented x 3, not in distress, speaks in sentences with no effort or accessory muscle use Eyes- anicteric Neck- no JVD trach in place- no bleeding, discharge Lungs-(+) crackles, bilateral bases, no wheezing Heart- normal rate, regular rhythm; no murmurs Abdomen- normal bowel sounds, nondistended, soft, nontender Extremities- no pretibial edema, no calf tenderness Neuro- alert, oriented x 3; no gross focal neurologic deficits Skin- warm & dry Results & Data Results & Data ([facility]) Vital Signs (Past 12 Hours) Vital Signs Temp Pulse Pulse Resp BP Pulse Ox 06/27/21 14:50 37.5 C 84 29 H 109/62 96 06/27/21 11:31 37.4 C 88 26 H 137/63 97 06/27/21 10:42 81 32 H 91 06/27/21 08:00 75 06/27/21 07:35 75 24 95 06/27/21 06:00 37.0 C 80 21 116/59 L 99 06/27/21 05:00 37.1 C 80 23 133/63 94 all noted and reviewed including below
[2021-06-27] MEDS: ATORVASTATIN 40 MG TAB PO SCH (20:49)
[2021-06-28] MEDS: TUBE FEEDING WATER FLUSH GT SCH ×6 (01:41→23:34)
[2021-06-28] MEDS: CEFEPIME 2,000 MG in SYRINGE 0 ML IV SCH ×3 (01:41→17:44)
[2021-06-28] MEDS: ACETAMINOPHEN SUSP 325 MG/10.15 ML UDC PEG PRN (03:49)
[2021-06-28] MEDS: oxyCODONE HCL SOLN 5 MG/5 ML UDC PO PRN ×2 (03:49→11:17)
[2021-06-28 05:22] LABS: Basophils # (auto) 0.01 K/uL (0-0.2); Basophils % (auto) 0.1 %; Eosinophils # (auto) 0.13 K/uL (0-0.5); Eosinophils % (auto) 1.8 %; Hematocrit (blood only) 23.5 % (37-47); Hemoglobin 7.1 g/dL (12.0-16.0); Immature Granulocytes # (auto) 0.02 K/uL (0.00-0.02); Immature Granulocytes % (auto) 0.3 %; Lymphocytes # (auto) 0.75 K/uL (1.2-3.4); Lymphocytes % (auto) 10.5 %; Mean Corpuscular Hemoglobin 28.3 pg (25-34); Mean Corpuscular Hgb Conc 30.2 g/dL (32-36); Mean Corpuscular Volume 93.6 fL (80-100); Mean Platelet Volume 10.4 fL (7.4-10.4); Monocytes # (auto) 0.77 K/uL (0.11-0.59); Monocytes % (auto) 10.8 %; Neutrophils # (auto) 5.43 K/uL (1.4-6.5); Neutrophils % (auto) 76.5 %; Platelet Count 338 K/uL (130-400); RDW Standard Deviation 69.6 fL (36.4-46.3); Red Blood Count 2.51 M/uL (4.2-5.4); White Blood Count 7.11 K/uL (4.8-10.8)
[2021-06-28 05:42] LABS: Partial Thromboplastin Ratio 1.9
[2021-06-28 05:43] LABS: BUN Creatinine Ratio 47.8 (10-20); Calcium 7.8 mg/dl (8.5-10.1); Creatinine Clr Calc Pharmacy 148.8 ml/min; Est GFR (African American) 148.4 ml/min; Magnesium 2.2 mg/dl (1.8-2.4); Potassium 3.7 mmol/L (3.5-5.1)
[2021-06-28 05:44] LABS: Phosphorus 2.7 mg/dl (2.5-4.9)
[2021-06-28 06:01] LABS: Anisocytosis Present; Polychromasia 1+
[2021-06-28 06:05] LABS: Partial Thromboplastin Time 49.1 Seconds (21.0-31.0)
[2021-06-28] MEDS ORDERED: POTASSIUM CHLORIDE 20 MEQ/15 ML UDC PO STA (06:10)
[2021-06-28] MEDS: INSULIN ASPART 100 UNITS/ML 3 ML PEN SC SCH ×3 (06:23→17:43)
[2021-06-28] MEDS: ALBUT/IPRATROP 3MG/0.5MG NEB 3 ML VIAL NEB PRN ×2 (07:11→20:41)
[2021-06-28] MEDS: SODIUM CHLOR 7% 4 ML NEB NEB SCH ×2 (07:12→20:43)
[2021-06-28] MEDS: ACETYLCYSTEINE 20% INHAL SOLN 4ML ***DISPENSED BY RESP. INH SCH ×2 (07:12→20:43)
[2021-06-28] MEDS: UMECLIDINIUM/VILANTEROL 62.5/25MCG 7 PUFFS/INHALER INH SCH (07:53)
[2021-06-28] MEDS: FLUTICASONE FUROATE 100MCG 14 PUFFS/INHALER INH SCH (07:53)
[2021-06-28] MEDS: PRIMIDONE 50 MG TAB PO SCH ×3 (07:54→20:18)
[2021-06-28] MEDS: METOPROLOL TARTRATE 25 MG TAB PO SCH ×3 (07:54→20:18)
[2021-06-28] MEDS: THIAMINE HCL 100 MG TAB PEG SCH ×2 (07:54→20:18)
[2021-06-28] MEDS: LORATADINE 10 MG TAB PO SCH (07:55)
[2021-06-28] MEDS: SODIUM CHLORIDE 0.9% 10ML FLUSH IV SCH (07:55)
[2021-06-28] MEDS: levETIRAcetam ORAL SOLN 100MG/ML PO SCH ×2 (07:56→20:18)
[2021-06-28] MEDS: LANSOPRAZOLE 30 MG SOLTAB PEG SCH ×2 (07:57→20:18)
[2021-06-28] MEDS: ASPIRIN 81 MG CHEW NG SCH (07:57)
[2021-06-28] MEDS: CLOPIDOGREL BISULFATE 75 MG TAB PO SCH (07:58)
[2021-06-28] MEDS: FLUTICASONE PROPIONATE NA SPR 16 GM BTL SCH (07:58)
[2021-06-28] MEDS: GABAPENTIN 250 MG/5 ML 470 ML BTL PO SCH ×3 (07:59→20:22)
[2021-06-28] MEDS: lisinopril 2.5 MG TAB PO SCH (07:59)
[2021-06-28] MEDS: FERROUS SULFATE 325 MG/7.4 ML UDP PO SCH ×2 (07:59→15:16)
[2021-06-28] MEDS: PHENYTOIN 100 MG in SYRINGE 0 ML IV SCH (08:00)
--- NOTE | 2021-06-28 09:28 | XRay Report ---
XR chest 1V portable HISTORY: Respiratory failure. COMPARISON: Chest 06/19/2021. FINDINGS: Lines and tubes remain unchanged in position. Left-sided pacemaker is again noted. No pneum othorax. Diffuse interstitial/vascular thickening consistent with pulmonary edema and bilateral pleur al effusions have slightly progressed. Left base airspace opacities remain unchanged. IMPRESSION: 1. Interval progression of the interstitial pulmonary edema and bilateral pleural effusions. 2. Satisfactory support line placement. ACT 112: Negative or not required by law. Electronically signed by: Robert Godoy M.D. 06/28/2021 9:27 AM
[2021-06-28] MEDS ORDERED: FUROSEMIDE INJ 20 MG/2 ML VIAL IV ONE (09:38)
--- NOTE | 2021-06-28 09:43 | Cardiology Progress Note ---
Date of Service June 28, 2021 Assessment & Plan (1) Respiratory failure with hypoxia and hypercapnia: (2) Non-ST elevation [place] (NSTEMI): (3) ACS (acute coronary syndrome): (4) GI bleed: (5) DVT (deep venous thrombosis): Plan: From a cardiac standpoint the patient remains stable. The patient is going to need long-term care and support. Admission and Anticipated Discharge Date Admission Date: June 12, 2021 Subjective The patient is alert and conversive either by written notes or limited speech. Review of Systems Review of Systems: Not obtainable Physical Exam Physical Exam: General: no acute distress and stated age Head: normocephalic, no masses, lesions, tenderness or abnormalities Eyes: conjunctiva are pink and non-injected, sclera clear Neck: Tracheostomy Chest: normal shape and normal respiratory effort Lungs: clear to auscultation and percussion Cardiac Exam: - regular rate & rhythm, no murmurs gallops or rubs - normal S1, normal S2 Pulses: 2(+) throughout Abdomen: abdomen soft, non-tender, no abnormal masses and no hepatosplenomegaly Musculoskeletal: no gait disturbance, no joint inflammation, no deforming arthri tis Extremities: no edema and no cyanosis Neuro: grossly normal exam Results & Data ([facility]) Vital Signs (Past 12 Hours) Vital Signs Temp Pulse Resp BP Pulse Ox 06/28/21 08:00 82 06/28/21 07:20 85 29 H 100 06/28/21 06:00 36.9 C 80 24 130/55 L 99 06/28/21 05:00 36.9 C 78 17 126/60 100 06/28/21 04:30 37.0 C 77 22 100 06/28/21 04:00 37.0 C 92 H 28 H 161/86 H 98 06/28/21 03:33 78 24 90 06/28/21 03:00 37.1 C 84 17 131/68 96 06/28/21 02:30 37.3 C 81 28 H 122/60 91 06/28/21 02:00 37.3 C 84 24 122/60 92 06/28/21 01:30 37.5 C 81 25 H 95 06/28/21 01:00 37.5 C 85 20 116/56 L 97 06/28/21 00:00 37.4 C 76 23 126/57 L 94 10/28/21 23:59 81 06/27/21 23:00 37.4 C 76 28 H 122/61 94 06/27/21 22:00 37.4 C 82 31 H 141/72 H 98 Laboratory Results Laboratory Results - last 24 hr 06/27/21 06/27/21 06/27/21 11:57 12:25 17:20 WBC RBC Hgb Hct MCV MCH MCHC RDW Std Deviation RDW Coeff of Lola Plt Count MPV Immature Gran % (Auto) Neut % (Auto) Lymph % (Auto) Faulkner % (Auto) Eos % (Auto) Baso % (Auto) Neut # (Auto) Lymph # (Auto) Faulkner # (Auto) Eos # (Auto) Baso # (Auto) Immature Gran # (Auto) Polychromasia Anisocytosis APTT PTT Ratio Sodium Potassium Chloride Carbon Dioxide Anion Gap BUN Creatinine Est Cr Clr Drug Dosing Est GFR ( Amer) Est GFR (Non-Af Amer) BUN/Creatinine Ratio Glucose POC Glucose 152 H 113 H Calcium Phosphorus Magnesium Stl C. diff Tox B Gene Positive Cdiff Gene H Stl C.difficile Tox A&B Negative Cdiff Toxin Phenytoin 06/27/21 06/28/21 06/28/21 23:08 04:47 04:47 WBC RBC Hgb Hct MCV MCH MCHC RDW Std Deviation RDW Coeff of Lola Plt Count MPV Immature Gran % (Auto) Neut % (Auto) Lymph % (Auto) Faulkner % (Auto) Eos % (Auto) Baso % (Auto) Neut # (Auto) Lymph # (Auto) Faulkner # (Auto) Eos # (Auto) Baso # (Auto) Immature Gran # (Auto) Polychromasia Anisocytosis APTT 49.1 H* PTT Ratio 1.9 Sodium Potassium Chloride Carbon Dioxide Anion Gap BUN Creatinine Est Cr Clr Drug Dosing Est GFR ( Amer) Est GFR (Non-Af Amer) BUN/Creatinine Ratio Glucose POC Glucose 133 H Calcium Phosphorus Magnesium Stl C. diff Tox B Gene Stl C.difficile Tox A&B Phenytoin 2.1 L 06/28/21 06/28/21 06/28/21 04:47 04:47 06:08 WBC 7.11 RBC 2.51 L Hgb 7.1 L Hct 23.5 L MCV 93.6 MCH 28.3 MCHC 30.2 L RDW Std Deviation 69.6 H RDW Coeff of Lola 21.0 H Plt Count 338 MPV 10.4 Immature Gran % (Auto) 0.3 Neut % (Auto) 76.5 Lymph % (Auto) 10.5 Faulkner % (Auto) 10.8 Eos % (Auto) 1.8 Baso % (Auto) 0.1 Neut # (Auto) 5.43 Lymph # (Auto) 0.75 L Faulkner # (Auto) 0.77 H Eos # (Auto) 0.13 Baso # (Auto) 0.01 Immature Gran # (Auto) 0.02 Polychromasia 1+ Anisocytosis Present APTT PTT Ratio Sodium 136 Potassium 3.7 Chloride 103 Carbon Dioxide 28 Anion Gap 5.0 BUN 14 Creatinine 0.30 L Est Cr Clr Drug Dosing 148.8 Est GFR ( Amer) 148.4 Est GFR (Non-Af Amer) 128.0 BUN/Creatinine Ratio 47.8 H Glucose 171 H POC Glucose 130 H Calcium 7.8 L Phosphorus 2.7 Magnesium 2.2 Stl C. diff Tox B Gene Stl C.difficile Tox A&B Phenytoin Medications Administered Current Inpatient Medications Acetaminophen (Acetaminophen Susp 325 Mg/10.15 Ml Udc) 650 mg PEG Q6H PRN PRN Reason: pain/fever Stop: 07/20/21 00:56 Last Admin: 06/28/21 03:49 Dose: 650 mg Documented by: Acetylcysteine (Acetylcysteine 20% Inhal Soln 4ml Dispensed By Resp.) 4 ml INH BIDR DENISSE Stop: 07/21/21 23:14 Last Admin: 06/28/21 07:12 Dose: 4 ml Documented by: Albuterol (Albut/Ipratrop 3mg/0.5mg Neb 3 Ml Vial) 3 ml NEB Q4R PRN PRN Reason: Wheezing Stop: 07/13/21 10:59 Last Admin: 06/28/21 07:11 Dose: 3 ml Documented by: Aspirin (Aspirin 81 Mg Chew) 81 mg NG DAILY DENISSE Stop: 07/13/21 16:14 Last Admin: 06/28/21 07:57 Dose: 81 mg Documented by: Atorvastatin Calcium (Atorvastatin 40 Mg Tab) 80 mg PO HS DENISSE Stop: 07/12/21 20:59 Last Admin: 06/27/21 20:49 Dose: 80 mg Documented by: Clopidogrel Bisulfate (Clopidogrel Bisulfate 75 Mg Tab) 75 mg PO QAM [facility] Stop: 07/13/21 16:14 Last Admin: 06/28/21 07:58 Dose: 75 mg Documented by: Enteral Nutritional Formula (Peptamen 1.5 Armando 1,000 Ml Bag) 1,000 ml GT UD DENISSE; Protocol Stop: 07/15/21 13:29 Last Admin: 06/26/21 05:21 Dose: 1,000 ml Documented by: Epinephrine HCl (Epinephrine Inj 1 Mg/Ml Amp) 0.3 mg IM UD PRN PRN Reason: Allergic Reaction Stop: 07/12/21 05:16 Ferrous Sulfate (Ferrous Sulfate 325 Mg/7.4 Ml Udp) 325 mg PO BIDM [facility] Stop: 07/15/21 16:59 Last Admin: 06/28/21 07:59 Dose: 325 mg Documented by: Fluticasone Furoate (Fluticasone Furoate 100mcg 14 Puffs/Inhaler) 1 puffs INH DAILY [facility] Stop: 07/18/21 09:59 Last Admin: 06/28/21 07:53 Dose: 1 puffs Documented by: Fluticasone Propionate (Fluticasone Propionate Na Spr 16 Gm Btl) 2 sprays NA DAILY [facility] Stop: 07/12/21 08:59 Last Admin: 06/28/21 07:58 Dose: 2 sprays Documented by: Furosemide (Furosemide Inj 20 Mg/2 Ml Vial) 20 mg IV ONE ONE Stop: 06/28/21 09:39 Gabapentin (Gabapentin 250 Mg/5 Ml 470 Ml Btl) 900 mg PO TID [facility] Stop: 07/15/21 13:59 Last Admin: 06/28/21 07:59 Dose: 900 mg Documented by: Phenytoin 100 mg/ Syringe 2 mls @ 1 mls/min IV TID [facility] Stop: 07/12/21 08:59 Last Admin: 06/28/21 08:00 Dose: 1 mls/min Documented by: Cefepime HCl 2,000 mg/ Syringe 20 mls @ 5 mls/min IV Q8H [facility]; Protocol Stop: 07/01/21 09:59 Last Admin: 06/28/21 07:56 Dose: 5 mls/min Documented by: Heparin Sodium/Dextrose (Heparin Sodium/Dextrose) 25,000 units in 500 mls @ 22 mls/hr IV .[id number] [facility]; Protocol Stop: 07/25/21 08:14 Last Titration: 06/28/21 06:40 Dose: 1,100 units/hr, 22 mls/hr Documented by: Insulin Aspart (Insulin Aspart 100 Units/Ml 3 Ml Pen) 0 units SC Q6 DENISSE Stop: 07/13/21 11:59 Last Admin: 06/28/21 06:23 Dose: 3 units Documented by: Isosorbide Dinitrate (Isosorbide Dinitrate 5 Mg Tab) 5 mg PO Q3H PRN PRN Reason: chest pain Stop: 07/12/21 04:37 Isosorbide Mononitrate (Isosorbide Faulkner Extended Rel 60 Mg Tabcr) 120 mg PO BID [facility] Stop: 07/12/21 08:59 Last Admin: 06/12/21 08:32 Dose: Not Given Documented by: Lansoprazole (Lansoprazole 30 Mg Soltab) 30 mg PEG BID [facility] Stop: 07/22/21 20:59 Last Admin: 06/28/21 07:57 Dose: 30 mg Documented by: Levetiracetam (Levetiracetam Oral Soln 100mg/Ml) 1,000 mg PO BID [facility] Stop: 07/17/21 20:59 Last Admin: 06/28/21 07:56 Dose: 1,000 mg Documented by: Lisinopril (Lisinopril 2.5 Mg Tab) 2.5 mg PO DAILY [facility] Stop: 07/14/21 08:59 Last Admin: 06/28/21 07:59 Dose: 2.5 mg Documented by: Loratadine (Loratadine 10 Mg Tab) 10 mg PO DAILY [facility] Stop: 07/12/21 08:59 Last Admin: 06/28/21 07:55 Dose: 10 mg Documented by: Metoprolol Tartrate (Metoprolol Tartrate 25 Mg Tab) 12.5 mg PO TID [facility] Stop: 07/17/21 13:59 Last Admin: 06/28/21 07:54 Dose: 12.5 mg Documented by: Oxycodone HCl (Oxycodone Hcl Soln 5 Mg/5 Ml Udc) 5 mg PO Q4H PRN PRN Reason: Pain Stop: 07/01/21 18:22 Last Admin: 06/28/21 03:49 Dose: 5 mg Documented by: Primidone (Primidone 50 Mg Tab) 50 mg PO TID [facility]ISSE Stop: 07/12/21 08:59 Last Admin: 06/28/21 07:54 Dose: 50 mg Documented by: Raspberry (Raspberry Syrup 5 Ml Udp) 5 ml PO Q6 [facility]IS[facility] Stop: 07/08/21 11:59 Sodium Chloride (Sodium Chloride 0.9% 10ml Flush) 20 ml IV TID [facility]ISSE Stop: 07/12/21 08:59 Last Admin: 06/28/21 07:55 Dose: 20 ml Documented by: Sodium Chloride (Sodium Chlor 7% 4 Ml Neb) 4 ml NEB BIDR DENISSE Stop: 07/24/21 18:59 Last Admin: 06/28/21 07:12 Dose: 4 ml Documented by: Sterile Water (Tube Feeding Water Flush) 60 ml GT Q4H [facility] Stop: 07/15/21 13:29 Last Admin: 06/28/21 07:59 Dose: 60 ml Documented by: Thiamine HCl (Thiamine Hcl 100 Mg Tab) 100 mg PEG BID [facility]ISSE; Protocol Stop: 07/22/21 20:59 Last Admin: 06/28/21 07:54 Dose: 100 mg Documented by: Umeclidinium/Vilanterol (Umeclidinium/Vilanterol 62.5/25mcg 7 Puffs/Inhaler) 1 puffs INH DAILY [facility] Stop: 07/18/21 10:14 Last Admin: 06/28/21 07:53 Dose: 1 puffs Documented by: Vancomycin HCl (Vancomycin Hcl 125 Mg/2.5ml Soln) 125 mg PO Q6 [facility] Stop: 07/08/21 11:59 (1) Respiratory failure with hypoxia and hypercapnia Chronicity: acute on chronic Qualified Code(s): J96.21 - Acute and chronic respiratory failure with hypoxia; J96.22 - Acute and chronic respiratory failure with hypercapnia
--- NOTE | 2021-06-28 09:43 | Electrocardiogram Report ---
Test Reason : Blood Pressure : / mmHG Vent. Rate : 084 BPM Atrial Rate : 084 BPM P-R Int : 158 ms QRS Dur : 094 ms QT Int : 436 ms P-R-T Axes : 038 033 209 degrees QTc Int : 515 ms Normal sinus rhythm Possible Left atrial enlargement Left ventricular hypertrophy with repolarization abnormality Prolonged QT Abnormal ECG When compared with ECG of 26-JUN-2021 14:18, No significant change was found Confirmed by Ivan Garibay ([id number]) on 06/28/2021 9:42:48 AM Referred By: REFERRED SELF Confirmed By:Baron Garibay
--- NOTE | 2021-06-28 10:52 | Critical Care Progress Note ---
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 Now post cardiac catheter she received a single drug-eluting stent to the proximal LAD for 90% stenosis and is also being monitored for a GIB and acute hypoxic/hypercapnic respiratory failure, likely secondary to component of acute CHF and severe underlying COPD. She is hemodynamically stable. Recommendations: Neuro -continue Keppra, phenytoin (dose being adjusted by pharmacy) primidone. Continue Neurontin for her peripheral neuropathy. She is profoundly deconditioned and will require aggressive therapy PT OT and likely long-term acute care rehab. Will need to go to an LTAC. Cardiac -status post ST elevation NE with drug-eluting stent to the proximal LAD. Continue aspirin, Plavix, Lipitor and HAILEY inhibitor, metoprolol 12.5 mg 3 times daily. Appreciate cardiology assistance. Hemodynamically stable. Continue gentle Lasix as tolerated. History of Prinzmetal's angina, but holding nitrates and calcium channel blockers currently. Echo from 06/12/2021 with an EF of 25 to 30%. Moderate tricuspid regurg. RVSP 40 to 50 mmHg. Extensive wall motion abnormalities of the left ventricle. Will transition from heparin drip to therapeutic Lovenox. Continue as needed diuretics. DOACs cont raindicated given the use of phenytoin. Respiratory -presumptive history of COPD. Continue Incruse Ellipta. Required multiple intubations and currently is trached. Status post tracheostomy 06/16/2021. We will hold on trach collar trials today given her episode of apnea. Continue present support via ventilator. CT chest concerning for mucous plugging and bilateral effusions with atelectasis. Continue vest percussive therapy 4 times daily given recurrent mucous plugging. Continue hypertonic saline. Continue Mucomyst twice daily. Bronchoscopy performed 06/26/2021. Thick mucoid impaction noted in the bilateral lower lobes. Cultures negative to date. Continue trach collar trials. GI -status post EGD 06/21/2021. No obvious bleeding. PEG tube placed and receiving tube feeds via PEG tube at this time. We will need to hold tube feeds around the time of that insulin administration due to absorption issues. RENAL/LYTES -no significant issues at present. Urine output remains adequate. Continue as needed diuretics due to positive fluid state. - Foleystrict I's and O's ENDO -glycemic control per protocol HEME -She also likely has a component of anemia of chronic disease. 1 packed RBC given 06/25/2021. An extensive nonocclusive DVT noted in the right upper extremity. Occlusive superficial venous thrombus is seen within the basilic vein. Currently on heparin infusion. DVT despite Xarelto. Will transition to Lovenox if she continues to demonstrate stability over the next 1 to 2 days. ID -repeat bronchoscopy cultures from 06/26/2021 - to date. Bronchoscopy cultures from 06/16/2021 growing Adrianne albicans. Likely contaminant. Urine cultures with lactobacillus species. Continue cefepime for total of 7 days. MRSA screen ordered. Prior MRSA screen is negative. Pro-Armando 06/24/2021 -. Blood cultures and urinalysis unremarkable. C. difficile Gene positive. Toxin negative. We will start treatment for C. difficile with enteral vancomycin as she is currently on antibiotics and having frequent diarrhea. ID consult with Radha herzog. Contact precautions. LINES/IV ACCESS - Right IJ CVL in place. DVT PROPHYLAXIS - SCDs, therapeutic Lovenox Admission and Anticipated Discharge Date Admission Date: June 12, 2021 Subjective No significant events overnight. Tolerating tracheostomy collar trials. Review of Systems Review of Systems: All systems reviewed & are unremarkable except as noted in HPI & below Physical Exam Physical Exam: General: Alert. nontoxic. Skin: Warm, dry, Head: Atraumatic. Ears, nose, mouth and throat: Tracheostomy present Cardiovascular: Regular rate and rhythm. No murmurs. Left upper extremity edema. Respiratory: Diffuse crackles. Diminished at the bases bilaterally. Gastrointestinal: Non distended, PEG tube present Musculoskeletal: No deformity Results & Data Results & Data ([facility]) Vital Signs (Past 12 Hours) Vital Signs Temp Pulse Resp BP Pulse Ox 06/28/21 08:00 82 06/28/21 07:20 85 29 H 100 06/28/21 06:00 98.4 F 80 24 130/55 L 99 06/28/21 05:00 98.4 F 78 17 126/60 100 06/28/21 04:30 98.6 F 77 22 100 06/28/21 04:00 98.6 F 92 H 28 H 161/86 H 98 06/28/21 03:33 78 24 90 06/28/21 03:00 98.8 F 84 17 131/68 96 06/28/21 02:30 99.1 F 81 28 H 122/60 91 06/28/21 02:00 99.1 F 84 24 122/60 92 06/28/21 01:30 99.5 F 81 25 H 95 06/28/21 01:00 99.5 F 85 20 116/56 L 97 06/28/21 00:00 99.3 F 76 23 126/57 L 94 06/27/21 23:59 81 06/27/21 23:00 99.3 F 76 28 H 122/61 94 Vital signs, labs and imaging personally reviewed Coding Level of Care Code 43082 Subseq Hosp Care Lvl 3 Diagnoses Tracheostomy dependence Z93.0 Mucoid impaction of bronchi T17.500A Non-ST elevation NE (NSTEMI) I21.4 CHF (congestive heart failure) I50.9 Heart failure chronicity: acute Heart failure type: unspecified GI bleed K92.2 Acidemia E87.2 Respiratory failure with hypoxia and hypercapnia J96.21; J96.22 Chronicity: acute on chronic Pacemaker Z95.0 Anemia D64.89 Anemia type: other cause Other causes of anemia: other cause, not classified Syncope R55 Syncope type: unspecified H/O diastolic dysfunction Z86.79 PAD (peripheral artery disease) I73.9 Presence of stent in LAD coronary artery Z95.5 Cellulitis L03.90 Prinzmetal angina I20.1 Postoperative deep vein thrombosis T81.89XA; I82.409 Steinert myotonic dystrophy syndrome G71.11 (1) CHF (congestive heart failure) Heart failure chronicity: acute Heart failure type: unspecified Qualified Code(s): I50.9 - Heart failure, unspecified (2) Respiratory failure with hypoxia and hypercapnia Chronicity: acute on chronic Qualified Code(s): J96.21 - Acute and chronic respiratory failure with hypoxia; J96.22 - Acute and chronic respiratory failure with hypercapnia (3) Anemia Anemia type: other cause Other causes of anemia: other cause, not classified Qualified Code(s): D64.89 - Other specified anemias (4) Syncope Syncope type: unspecified Qualified Code(s): R55 - Syncope and collapse
[2021-06-28] MEDS ORDERED: [UNRECOGNIZED DRUG - REMARK] ONE (11:00)
[2021-06-28] MEDS: ENOXAPARIN INJ 60 MG/0.6 ML SYR SQ SCH ×2 (11:16→23:33)
[2021-06-28] MEDS: VANCOMYCIN HCL 125 MG/2.5ML SOLN PO SCH ×2 (11:17→17:44)
[2021-06-28] MEDS: RASPBERRY SYRUP 5 ML UDP PO SCH ×2 (11:17→17:44)
[2021-06-28] MEDS ORDERED: MoRPHine SULFATE CR 15 MG TABCR PO SCH (13:05)
[2021-06-28] MEDS ORDERED: PHENYTOIN 100 MG in SYRINGE 0 ML IV SCH (14:00)
[2021-06-28] MEDS ORDERED: SODIUM CHLORIDE 0.9% 10ML FLUSH IV SCH ×2 (14:00→21:00)
[2021-06-28] MEDS: MoRPHine SULFATE 5 MG/0.25 ML UDP PO SCH (17:43)
[2021-06-28] MEDS: ATORVASTATIN 40 MG TAB PO SCH (20:17)
[2021-06-28] MEDS: PHENYTOIN SUSP 125 MG/5 ML PO SCH (20:22)
[2021-06-28] MEDS ORDERED: PHENYTOIN 150 MG in SYRINGE 0 ML IV SCH (21:00)
[2021-06-28] MEDS ORDERED: TUBE FEEDING WATER FLUSH GT SCH (23:00)
[2021-06-28] MEDS ORDERED: PEPTAMEN 1.5 CAL 1,000 ML BAG GT SCH (23:00)
[2021-06-28] MEDS: PEPTAMEN 1.5 CAL 1,000 ML BAG GT SCH (23:35)
[2021-06-29] MEDS: TUBE FEEDING WATER FLUSH GT SCH ×5 (00:52→23:26)
[2021-06-29] MEDS: MoRPHine SULFATE 5 MG/0.25 ML UDP PO SCH ×5 (01:14→23:27)
[2021-06-29] MEDS: VANCOMYCIN HCL 125 MG/2.5ML SOLN PO SCH ×5 (01:15→23:26)
[2021-06-29] MEDS: RASPBERRY SYRUP 5 ML UDP PO SCH ×5 (01:16→23:27)
[2021-06-29] MEDS: INSULIN ASPART 100 UNITS/ML 3 ML PEN SC SCH ×5 (01:16→23:42)
[2021-06-29] MEDS: CEFEPIME 2,000 MG in SYRINGE 0 ML IV SCH ×3 (01:43→17:52)
[2021-06-29] MEDS: oxyCODONE HCL SOLN 5 MG/5 ML UDC PO PRN ×2 (04:51→21:43)
[2021-06-29 05:32] LABS: Basophils # (auto) 0.02 K/uL (0-0.2); Basophils % (auto) 0.2 %; Eosinophils # (auto) 0.07 K/uL (0-0.5); Eosinophils % (auto) 0.9 %; Hematocrit (blood only) 26.4 % (37-47); Hemoglobin 7.9 g/dL (12.0-16.0); Immature Granulocytes # (auto) 0.02 K/uL (0.00-0.02); Immature Granulocytes % (auto) 0.2 %; Lymphocytes # (auto) 0.75 K/uL (1.2-3.4); Lymphocytes % (auto) 9.2 %; Mean Corpuscular Hemoglobin 28.1 pg (25-34); Mean Corpuscular Hgb Conc 29.9 g/dL (32-36); Mean Platelet Volume 10.2 fL (7.4-10.4); Monocytes # (auto) 0.91 K/uL (0.11-0.59); Monocytes % (auto) 11.2 %; Neutrophils # (auto) 6.35 K/uL (1.4-6.5); Neutrophils % (auto) 78.3 %; Platelet Count 379 K/uL (130-400); RDW Coefficient of Variation 21.6 % (11.5-14.5); RDW Standard Deviation 72.8 fL (36.4-46.3); Red Blood Count 2.81 M/uL (4.2-5.4); White Blood Count 8.12 K/uL (4.8-10.8)
[2021-06-29 05:41] LABS: Partial Thromboplastin Ratio 1.4; Partial Thromboplastin Time 36.6 Seconds (21.0-31.0)
[2021-06-29 05:50] LABS: BUN Creatinine Ratio 71.8 (10-20); Blood Urea Nitrogen 15 mg/dl (7-18); Carbon Dioxide 26 mmol/L (21-32); Chloride 105 mmol/L (98-107); Creatinine Clr Calc Pharmacy 225.6 ml/min; Est GFR (African American) > 150.0 ml/min; Est GFR (Non-African American) 146.3 ml/min; Glucose 88 mg/dl (70-99); Magnesium 2.1 mg/dl (1.8-2.4); Potassium 3.6 mmol/L (3.5-5.1); Sodium 137 mmol/L (136-145)
[2021-06-29 05:51] LABS: Phosphorus 3.2 mg/dl (2.5-4.9)
[2021-06-29] MEDS: PEPTAMEN 1.5 CAL 1,000 ML BAG GT SCH ×3 (05:56→23:26)
[2021-06-29 06:47] LABS: Anisocytosis Present; Hypochromasia Present; Polychromasia 1+
[2021-06-29] MEDS: SODIUM CHLOR 7% 4 ML NEB NEB SCH ×2 (07:14→20:13)
[2021-06-29] MEDS: ACETYLCYSTEINE 20% INHAL SOLN 4ML ***DISPENSED BY RESP. INH SCH ×2 (07:14→19:48)
[2021-06-29] MEDS: ENOXAPARIN INJ 60 MG/0.6 ML SYR SQ SCH ×2 (07:29→23:26)
[2021-06-29] MEDS: GABAPENTIN 250 MG/5 ML 470 ML BTL PO SCH ×3 (07:30→20:13)
[2021-06-29] MEDS: PHENYTOIN 100 MG/4 ML UDP PO SCH ×2 (07:30→13:53)
[2021-06-29] MEDS: METOPROLOL TARTRATE 25 MG TAB PO SCH ×3 (07:30→20:14)
[2021-06-29] MEDS: LORATADINE 10 MG TAB PO SCH (07:31)
[2021-06-29] MEDS: lisinopril 2.5 MG TAB PO SCH (07:31)
[2021-06-29] MEDS: THIAMINE HCL 100 MG TAB PEG SCH ×2 (07:31→20:15)
[2021-06-29] MEDS: levETIRAcetam ORAL SOLN 100MG/ML PO SCH ×2 (07:31→20:13)
[2021-06-29] MEDS: CLOPIDOGREL BISULFATE 75 MG TAB PO SCH (07:32)
[2021-06-29] MEDS: ASPIRIN 81 MG CHEW NG SCH (07:32)
[2021-06-29] MEDS: FLUTICASONE FUROATE 100MCG 14 PUFFS/INHALER INH SCH (07:32)
[2021-06-29] MEDS: FLUTICASONE PROPIONATE NA SPR 16 GM BTL SCH (07:32)
[2021-06-29] MEDS: UMECLIDINIUM/VILANTEROL 62.5/25MCG 7 PUFFS/INHALER INH SCH (07:32)
[2021-06-29] MEDS: FERROUS SULFATE 325 MG/7.4 ML UDP PO SCH ×2 (07:32→17:52)
[2021-06-29] MEDS: LANSOPRAZOLE 30 MG SOLTAB PEG SCH ×2 (07:32→20:14)
[2021-06-29] MEDS: PRIMIDONE 50 MG TAB PO SCH ×3 (07:33→20:14)
--- NOTE | 2021-06-29 08:26 | Hospitalist Progress Note ---
Date of Service June 29, 2021 delayed entry date of service noted above Assessment & Plan (1) Non-ST elevation VA (NSTEMI): Plan: per Dr. Acuña's notes with addendum ASSESSMENT AND PLAN: This is a 55-year-old female who presents with agitation, chest pain, pain all over and found to be with non-ST elevated myocardial infarction and congestive heart failure. 1. Respiratory Distress: The patient is s/p intubation and mechanical v entilation, possibly secondary to congestive heart failure, received Lasix in ER -- self extubated 06/14, then reintubated 06/15 -- s/p trach placement 06/16 -- Then she was placed back on Vent support Possible Aspiration Pneumonia Completed 10 days course of Unasyn Chest x-ray last night showed significant interval improvement in left lung aeration. Bilateral airspace opacities, improved since prior exam. Small bilateral pleural effusions with probable mild pulmonary edema. Continue vent management as per motorcycle maker CT chest on 06/24 showed moderate left and [id number] right pleural effusions. Near-complete opacification of the left lower lobe which could reflect subpleural atelectasis or pneumonia. Extensive right lower lobe and lingular opacities could reflect pneumonia or atelectasis. Continue vest percussive therapy 4 times daily given recurrent mucous plugging. Continue hypertonic saline. Continue Mucomyst twice daily. s/p Bronch 06/26/2021 cultures negative to date Trach collar continue trach management per motorcycle maker 2. Non-ST elevated myocardial infarction: Status post cardiac catheterization and stent to the proximal LAD lesion, post-cath care as per cardiology. Ischemic Cardiomyopathy -- s/p Cardiac Cath 06/[address] iHnojosa: 1. Severe multivessel vessel coronary artery disease -90% possibly acute proximal LAD stenosis. Patent mid LAD stent 100% chronic mid RCA occlusion. Distal vessel fills via [id number] collaterals. 2. Elevated intracardiac filling pressure. LVEDP 34 3. Severe obstructive abdominal aortic disease (unable to pass 5 Fr catheter across stenosis). 4. Successful PCI of proximal to mid LAD with single drug-eluting stent (3.0 x 18 mm Soham; postdilated with 3.5 NC, overlaps proximal aspect of prior stent). Echo with EF 25-30%. extensive wall motion abnormalities with the inferior wall being akinetic at the base on ASA, Plavix, Imdur-->changed to Nitropaste, IV Metoprolol, Lisinopril, L ipitor Continue Plavix , aspirin, metoprolol and statin 06/28 -- no cardiac symptoms -- Continue lisinopril, metoprolol, aspirin, Plavix, statin Severe Dysphagia Failed swallow eval High risk for aspiration. Status post PEG placement performed by Dr. Aiden Norris Continue PEG tube feeding 06/28 no issues 3. Anemia, possible GI bleed -- Hemoglobin was 5.4 last admission, required 4 units of PRBCs. He was started on Protonix drip, now on IV PPI BID -- Hg 7.3 today -- GI not recommending EGD/Colonoscopy due to above -- Consider to transfuse if H/H drops below 7 06/28 hg 7.1 no signs of bleeding monitor closely Right Arm DVT -- on Lovenox 4. Elevated lactic acid and acidosis: Most likely from the acute coronary syndrome and respiratory distress. -- improved 5. The patient is on chronic pain medication. Oxycodone PRN 7. History of coronary artery disease. History of LAD stenting in the past as well as vasospastic angina 8. History of VT arrest due to coronary artery vasospasm versus acquired QT prolongation possible of azithromycin exposure, status post single chamber AICD. 9. History of peripheral vascular disease, superficial femoral artery occlusion, left subclavian artery stenosis. on aspirin and Plavix. 10. History of myotonic muscular dystrophy. PT, OT when stable. 11. History of pulmonary embolism. Coumadin was discontinued due to GI bleed in 2019. 12. History of left carotid endarterectomy in 2015. 13. History of chronic obstructive pulmonary disease: Continue her home inhalers. 14. History of seizures: On Keppra and phenytoin 15. History of diastolic congestive heart failure: per above 16. History of hypertension: 17. History of deep venous thrombosis prophylaxis: Will place on sequential compression devices for now because of possible gastrointestinal bleed. 18. Underweight Disposition Continue monitor in ICU Admission and Anticipated Discharge Date Admission Date: June 12, 2021 Subjective ff up for respiratory failure, NSTEMI, etc. Seen resting bed, in distress, comfortable On trach collar Denies shortness of breath, cough, chills No abdominal pain, fever Reports pain is well controlled no chest pain, dyspnea, palpitations, dizziness No other symptoms Review of Systems Review of Systems: all noted and negative except for above Physical Exam Physical Exam: General- oriented x 2, not in distress, speaks in sentences with no effort or accessory muscle use Eyes- anicteric Neck- no JVD Trach in place-no bleeding or discharge Lungs- clear breath sounds bilaterally, no crackles Heart- normal rate, regular rhythm; no murmurs Abdomen- normal bowel sounds, nondistended, soft, nontender PEG tube in place Extremities- no pretibial edema, no calf tenderness Neuro- alert, oriented x 2; no gross focal neurologic deficits Skin- warm & dry Results & Data Results & Data ([facility]) Vital Signs (Past 12 Hours) Vital Signs Temp Pulse Pulse Resp BP Pulse Ox 06/29/21 07:48 86 86 26 H 98 06/29/21 04:10 83 32 H 100 06/29/21 02:10 37.4 C 86 25 H 99 06/29/21 02:05 37.4 C 86 19 99 06/29/21 02:00 37.4 C 85 16 99 06/29/21 01:55 37.5 C 82 24 96 06/29/21 01:50 37.5 C 79 25 H 98 06/29/21 01:45 37.4 C 80 25 H 99 06/29/21 01:40 37.4 C 80 25 H 96 06/29/21 01:35 37.5 C 85 25 H 99 06/29/21 01:30 37.5 C 88 21 100 06/29/21 01:25 37.5 C 87 22 100 06/29/21 01:20 37.4 C 89 25 H 97 06/29/21 01:15 37.5 C 84 20 98 06/29/21 01:10 37.5 C 82 22 96 06/29/21 01:05 37.4 C 85 23 95 06/29/21 01:00 37.3 C 88 18 98 06/29/21 00:50 37.4 C 88 13 98 06/29/21 00:45 37.4 C 87 23 97 06/29/21 00:40 37.4 C 87 33 H 95 06/29/21 00:35 37.4 C 84 20 96 06/29/21 00:30 37.4 C 82 23 95 06/29/21 00:25 81 21 96 06/29/21 00:20 37.4 C 84 20 94 06/29/21 00:18 82 06/29/21 00:15 37.4 C 84 27 H 94 06/29/21 00:10 37.4 C 83 17 112/64 92 06/29/21 00:05 37.4 C 83 20 94 06/29/21 00:00 37.4 C 82 15 93 06/28/21 23:55 37.4 C 81 22 93 06/28/21 23:50 37.4 C 79 14 94 06/28/21 23:45 37.4 C 80 16 94 06/28/21 23:40 37.5 C 80 14 94 06/28/21 23:35 37.5 C 79 21 94 06/28/21 23:30 37.5 C 77 18 93 06/28/21 23:25 37.5 C 78 23 95 06/28/21 23:20 37.5 C 76 21 95 06/28/21 23:15 37.5 C 79 23 95 06/28/21 23:10 80 23 95 06/28/21 23:05 85 31 H 95 06/28/21 23:00 79 23 97 06/28/21 22:55 75 23 97 06/28/21 22:50 75 17 96 06/28/21 22:45 76 16 95 06/28/21 22:40 73 24 93 06/28/21 22:35 72 24 94 06/28/21 22:30 73 26 H 95 06/28/21 22:25 77 25 H 97 06/28/21 22:20 74 22 98 06/28/21 22:15 73 22 97 06/28/21 22:10 74 19 97 06/28/21 22:05 76 17 100 06/28/21 20:43 79 23 95 all noted and reviewed including below
--- NOTE | 2021-06-29 15:18 | Critical Care Progress Note ---
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 Now post cardiac catheter she received a single drug-eluting stent to the proximal LAD for 90% stenosis and is also being monitored for a GIB and acute hypoxic/hypercapnic respiratory failure, likely secondary to component of acute CHF and severe underlying COPD. She is hemodynamically stable. Recommendations: Neuro -continue Keppra, phenytoin (dose being adjusted by pharmacy) primidone. Continue Neurontin for her peripheral neuropathy. She is profoundly deconditioned and will require aggressive therapy PT OT and likely long-term acute care rehab. Roxanol 5 mg p.o. every 6 hours for pain control per hospitalist. Cardiac -status post ST elevation MN with drug-eluting stent to the proximal LAD. Continue aspirin, Plavix, Lipitor and HAILEY inhibitor, metoprolol 12.5 mg 3 times daily. Appreciate cardiology assistance. Hemodynamically stable. Continue gentle Lasix as tolerated. History of Prinzmetal's angina, stable. Will restart Imdur if worsening hypertension. Echo from 06/12/2021 with an EF of 25 to 30%. Moderate tricuspid regurg. RVSP 40 to 50 mmHg. Extensive wall motion abnormalities of the left ventricle. Continue as needed diuretics. Respiratory -presumptive history of COPD. Continue Incruse Ellipta. Required multiple intubations and currently is trached. Status post tracheostomy 06/16/2021. We will hold on trach collar trials today given her episode of apnea. Continue present support via ventilator. CT chest concerning for mucous plugging and bilateral effusions with atelectasis. Continue vest percussive therapy 4 times daily given recurrent mucous plugging. Continue hypertonic saline. Continue Mucomyst twice daily. Bronchoscopy performed 06/26/2021. Thick mucoid impaction noted in the bilateral lower lobes. Cultures negative to date. Continue trach collar during the day and night. If she becomes tired, will transition to pressure support for a brief period of time. Can likely switch to a fenestrated trach next week. GI -status post EGD 06/21/2021. No obvious bleeding. PEG tube placed and receiving tube feeds via PEG tube at this time. We will need to hold tube feeds around the time of phenytoin administration due to absorption issues. Appreciate nutrition input. RENAL/LYTES -no significant issues at present. Urine output remains adequate. Continue as needed diuretics due to positive fluid state. - Foleystrict I's and O's ENDO -glycemic control per protocol HEME -She also likely has a component of anemia of chronic disease. 1 packed RBC given 06/25/2021. An extensive nonocclusive DVT noted in the right upper extremity. Occlusive superficial venous thrombus is seen within the basilic vei n. DVT on Xarelto likely secondary to interactions with phenytoin. Continue Lovenox full dose. ID -repeat bronchoscopy cultures from 06/26/2021 - to date. Bronchoscopy cult ures from 06/16/2021 growing Adrianne albicans. Likely contaminant. Urine cultures with lactobacillus species. Continue cefepime for total of 7 days. MRSA screen ordered. Prior MRSA screen is negative. Pro-Armando 06/24/2021 -. Blood cultures and urinalysis unremarkable. C. difficile Gene positive. Toxin negative. Continuetreatment for C. difficile with enteral vancomycin as she is currently on antibiotics and having frequent diarrhea. ID consult with [facility]. Contact precautions. LINES/IV ACCESS - Right IJ CVL in place. DVT PROPHYLAXIS - SCDs, therapeutic Lovenox Stable for discharge to a rehab facility. Admission and Anticipated Discharge Date Admission Date: June 12, 2021 Subjective No significant events overnight. Continues to do well on tracheostomy collar trials. Review of Systems Review of Systems: All systems reviewed & are unremarkable except as noted in HPI & below Physical Exam Physical Exam: General: Alert. nontoxic. Skin: Warm, dry, Head: Atraumatic. Ears, nose, mouth and throat: Tracheostomy present Cardiovascular: Regular rate and rhythm. No murmurs. Left upper extremity edema. Respiratory: Diffuse crackles. Diminished at the bases bilaterally. Gastrointestinal: Non distended, PEG tube present Musculoskeletal: No deformity Results & Data Results & Data ([facility]) Vital Signs (Past 12 Hours) Vital Signs Temp Pulse Pulse Resp BP Pulse Ox 06/29/21 09:00 99.1 F 80 30 H 90 06/29/21 08:00 99.1 F 96 H 44 H 146/81 H 93 06/29/21 07:48 86 86 26 H 98 06/29/21 07:00 99.1 F 82 24 97 06/29/21 04:10 83 32 H 100 vital signs, labs and imaging personally reviewed Coding Level of Care Code 61763 Subseq Hosp Care Lvl 2 Diagnoses Tracheostomy dependence Z93.0 Mucoid impaction of bronchi T17.500A Non-ST elevation [place] (NSTEMI) I21.4 CHF (congestive heart failure) I50.9 Heart failure chronicity: acute Heart failure type: unspecified GI bleed K92.2 Acidemia E87.2 Respiratory failure with hypoxia and hypercapnia J96.21; J96.22 Chronicity: acute on chronic Pacemaker Z95.0 Anemia D64.89 Anemia type: other cause Other causes of anemia: other cause, not classified Syncope R55 Syncope type: unspecified H/O diastolic dysfunction Z86.79 PAD (peripheral artery disease) I73.9 Presence of stent in LAD coronary artery Z95.5 Cellulitis L03.90 Prinzmetal angina I20.1 Postoperative deep vein thrombosis T81.89XA; I82.409 Steinert myotonic dystrophy syndrome G71.11 (1) CHF (congestive heart failure) Heart failure chronicity: acute Heart failure type: unspecified Qualified Code(s): I50.9 - Heart failure, unspecified (2) Respiratory failure with hypoxia and hypercapnia Chronicity: acute on chronic Qualified Code(s): J96.21 - Acute and chronic respiratory failure with hypoxia; J96.22 - Acute and chronic respiratory failure with hypercapnia (3) Anemia Anemia type: other cause Other causes of anemia: other cause, not classified Qualified Code(s): D64.89 - Other specified anemias (4) Syncope Syncope type: unspecified Qualified Code(s): R55 - Syncope and collapse
--- NOTE | 2021-06-29 16:22 | Hospitalist Progress Note ---
Date of Service June 29, 2021 Assessment & Plan (1) Non-ST elevation [place] (NSTEMI): Plan: per Dr. Acuña's notes with addendum ASSESSMENT AND PLAN: This is a 55-year-old female who presents with agitation, chest pain, pain all over and found to be with non-ST elevated myocardial infarction and congestive heart failure. 1. Respiratory Distress: The patient is s/p intubation and mechanical ventilation, possibly secondary to congestive heart failure, received Lasix in ER -- self extubated 06/14, then reintubated 06/15 -- s/p trach placement 06/16 -- Then she was placed back on Vent support Possible Aspiration Pneumonia Completed 10 days course of Unasyn Chest x-ray last night showed significant interval improvement in left lung aeration. Bilateral airspace opacities, improved since prior exam. Small bilateral pleural effusions with probable mild pulmonary edema. Continue vent management as per marketing and public relations manager CT chest on 06/24 showed moderate left and [id number] right pleural effusions. Near-complete opacification of the left lower lobe which could reflect subpleural atelectasis or pneumonia. Extensive right lower lobe and lingular opacities could reflect pneumonia or atelectasis. Continue vest percussive therapy 4 times daily given recurrent mucous plugging. Continue hypertonic saline. Continue Mucomyst twice daily. s/p Bronch 06/26/2021 cultures negative to date Trach collar continue trach management per plastic tile layer 2. Non-ST elevated myocardial infarction: Status post cardiac catheterization and stent to the proximal LAD lesion, post-cath care as per cardiology. Ischemic Cardiomyopathy -- s/p Cardiac Cath 06/[address] Hinojosa: 1. Severe multivessel vessel coronary artery disease -90% possibly acute proximal LAD stenosis. Patent mid LAD stent 100% chronic mid RCA occlusion. Distal vessel fills via [id number] collaterals. 2. Elevated intracardiac filling pressure. LVEDP 34 3. Severe obstructive abdominal aortic disease (unable to pass 5 Fr catheter across stenosis). 4. Successful PCI of proximal to mid LAD with single drug-eluting stent (3.0 x 18 mm Soham; postdilated with 3.5 NC, overlaps proximal aspect of prior stent). Echo with EF 25-30%. extensive wall motion abnormalities with the inferior wall being akinetic at the base on ASA, Plavix, Imdur-->changed to Nitropaste, IV Metoprolol, Lisinopril, Lipitor Continue Plavix , aspirin, metoprolol and statin 06/29/2021 -- no cardiac symptoms -- Continue lisinopril, metoprolol, aspirin, Plavix, statin Severe Dysphagia Failed swallow eval High risk for aspiration. Status post PEG placement performed by Dr. Aiden Norris Continue PEG tube feeding 06/29/2021 no issues 3. Anemia, possible GI bleed -- Hemoglobin was 5.4 last admission, required 4 units of PRBCs. He was started on Protonix drip, now on IV PPI BID -- Hg 7.3 today -- GI not recommending EGD/Colonoscopy due to above -- Consider to transfuse if H/H drops below 7 10/29 hg 7.9 no signs of bleeding monitor closely Right Arm DVT -- on Lovenox 4. Elevated lactic acid and acidosis: Most likely from the acute coronary syndrome and respiratory distress. -- improved 5. The patient is on chronic pain medication. Oxycodone PRN 7. History of coronary artery disease. History of LAD stenting in the past as well as vasospastic angina 8. History of VT arrest due to coronary artery vasospasm versus acquired QT prolongation possible of azithromycin exposure, status post single chamber AICD. 9. History of peripheral vascular disease, superficial femoral artery occlusion, left subclavian artery stenosis. on aspirin and Plavix. 10. History of myotonic muscular dystrophy. PT, OT when stable. 11. History of pulmonary embolism. Coumadin was discontinued due to GI bleed in 2019. 12. History of left carotid endarterectomy in 2015. 13. History of chronic obstructive pulmonary disease: Continue her home inhalers. 14. History of seizures: On Keppra and phenytoin 15. History of diastolic congestive heart failure: per above 16. History of hypertension: 17. History of deep venous thrombosis prophylaxis: Will place on sequential compression devices for now because of possible gastrointestinal bleed. 18. Underweight Disposition Continue monitor in ICU Admission and Anticipated Discharge Date Admission Date: June 12, 2021 Subjective Follow-up for respiratory failure, NSTEMI, etc. Seen resting in bed, at the bedside visiting Not in distress, comfortable Reports trach collar oxygen is 'too cold' States the cold worsens her symptoms of muscular dystrophy Denies shortness of breath, chest pain, rotations, dizziness No abdominal pain, nausea, fevers or chills Pain well controlled No other symptoms Review of Systems Review of Systems: all noted and negative except for above Physical Exam Physical Exam: General- oriented x 3, not in distress, speaks in sentences with no effort or accessory muscle use Eyes- anicteric Neck- no JVD Trach in place-no bleeding or discharge Lungs-positive mild rales at the bases, no wheezing Heart- normal rate, regular rhythm; no murmurs Abdomen- normal bowel sounds, nondistended, soft, no tenderness in all quadrants PEG tube in place Extremities- no pretibial edema, no calf tenderness Neuro- alert, oriented x 3; no gross focal neurologic deficits Skin- warm & dry Results & Data Results & Data ([facility]) Vital Signs (Past 12 Hours) Vital Signs Temp Pulse Pulse Resp BP Pulse Ox 06/29/21 09:00 37.3 C 80 30 H 90 06/29/21 08:00 37.3 C 96 H 44 H 146/81 H 93 06/29/21 07:48 86 86 26 H 98 06/29/21 07:00 37.3 C 82 24 97 all noted and reviewed including below
--- NOTE | 2021-06-29 18:04 | Cardiology Progress Note ---
Date of Service June 29, 2021 Assessment & Plan (1) Non-ST elevation [place] (NSTEMI): (2) GI bleed: (3) DVT (deep venous thrombosis): (4) Tracheostomy dependence: Plan: Continue cefepime, atorvastatin, clopidogrel, lisinopril, metoprolol, lovenox. As noted, she is not a DOAC candidate due to the dilantin. Admission and Anticipated Discharge Date Admission Date: June 12, 2021 Subjective Pt seen in cardiology follow up having been followed by Dr Lei last week. Pt well known to the undersigned as I am her outpatient assistant city attorney and I have followed her for years. She is known to be chronically ill and debilitated at baseline. On trach collar support today. Awake, recognizes me. Review of Systems Review of Systems: All systems reviewed & are unremarkable except as noted in HPI & below Physical Exam Constitutional: + frail appearing Respiratory: course breath sounds bilaterally. Cardiovascular: RRR, no murmur, no edema Neurologic: moves all 4 extremities Results & Data ([facility]) Vital Signs (Past 12 Hours) Vital Signs Temp Pulse Pulse Resp BP Pulse Ox 06/29/21 09:00 37.3 C 80 30 H 90 06/29/21 08:00 37.3 C 96 H 44 H 146/81 H 93 06/29/21 07:48 86 86 26 H 98 06/29/21 07:00 37.3 C 82 24 97 Laboratory Results Coagulation 06/29/21 Range/Units 04:54 APTT 36.6 H (21.0-31.0) Seconds CBC 06/29/21 Range/Units 04:54 WBC 8.12 (4.8-10.8) K/uL RBC 2.81 L (4.2-5.4) M/uL Hgb 7.9 L (12.0-16.0) g/dL Hct 26.4 L (37-47) % Plt Count 379 (130-400) K/uL Neut # (Auto) 6.35 (1.4-6.5) K/uL Lymph # (Auto) 0.75 L (1.2-3.4) K/uL [place] # (Auto) 0.91 H (0.11-0.59) K/uL Eos # (Auto) 0.07 (0-0.5) K/uL Baso # (Auto) 0.02 (0-0.2) K/uL Comprehensive Metabolic Panel 06/29/21 Range/Units 04:54 Sodium 137 (136-145) mmol/L Potassium 3.6 (3.5-5.1) mmol/L Chloride 105 (98-107) mmol/L Carbon Dioxide 26 (21-32) mmol/L BUN 15 (7-18) mg/dl Creatinine 0.20 L (0.6-1.2) mg/dl Glucose 88 (70-99) mg/dl Calcium 8.0 L (8.5-10.1) mg/dl Intake and Output 06/29/21 06/29/21 06/29/21 06:59 14:59 22:59 Output Total 500 / 500 Balance -500 / -500 Output: Urine Amount (Catheter) 500 / 500 Rosas/Indwelling 500 / 500
[2021-06-29] MEDS: ALBUT/IPRATROP 3MG/0.5MG NEB 3 ML VIAL NEB PRN (19:48)
[2021-06-29] MEDS: PHENYTOIN SUSP 125 MG/5 ML PO SCH (20:13)
[2021-06-29] MEDS: ATORVASTATIN 40 MG TAB PO SCH (20:14)
[2021-06-30] MEDS: TUBE FEEDING WATER FLUSH GT SCH ×6 (00:38→23:48)
[2021-06-30] MEDS: CEFEPIME 2,000 MG in SYRINGE 0 ML IV SCH ×3 (02:29→17:56)
[2021-06-30 04:58] LABS: Basophils # (auto) 0.03 K/uL (0-0.2); Basophils % (auto) 0.4 %; Eosinophils % (auto) 1.3 %; Hematocrit (blood only) 25.9 % (37-47); Hemoglobin 7.8 g/dL (12.0-16.0); Immature Granulocytes # (auto) 0.03 K/uL (0.00-0.02); Immature Granulocytes % (auto) 0.4 %; Lymphocytes # (auto) 0.75 K/uL (1.2-3.4); Lymphocytes % (auto) 9.4 %; Mean Corpuscular Hemoglobin 28.6 pg (25-34); Mean Corpuscular Hgb Conc 30.1 g/dL (32-36); Mean Corpuscular Volume 94.9 fL (80-100); Mean Platelet Volume 10.1 fL (7.4-10.4); Monocytes # (auto) 1.17 K/uL (0.11-0.59); Monocytes % (auto) 14.7 %; Neutrophils # (auto) 5.87 K/uL (1.4-6.5); Neutrophils % (auto) 73.8 %; Platelet Count 429 K/uL (130-400); RDW Coefficient of Variation 21.8 % (11.5-14.5); RDW Standard Deviation 75.2 fL (36.4-46.3); Red Blood Count 2.73 M/uL (4.2-5.4); White Blood Count 7.95 K/uL (4.8-10.8)
[2021-06-30 05:14] LABS: BUN Creatinine Ratio 50.3 (10-20); Blood Urea Nitrogen 12 mg/dl (7-18); Calcium 7.9 mg/dl (8.5-10.1); Carbon Dioxide 28 mmol/L (21-32); Chloride 108 mmol/L (98-107); Creatinine Clr Calc Pharmacy 180.5 ml/min; Est GFR (African American) > 150.0 ml/min; Est GFR (Non-African American) 135.9 ml/min; Glucose 133 mg/dl (70-99); Magnesium 2.2 mg/dl (1.8-2.4); Phosphorus 2.8 mg/dl (2.5-4.9); Potassium 3.6 mmol/L (3.5-5.1); Sodium 139 mmol/L (136-145)
[2021-06-30 05:33] LABS: Anisocytosis Present
[2021-06-30] MEDS: MoRPHine SULFATE 5 MG/0.25 ML UDP PO SCH ×4 (05:48→23:46)
[2021-06-30] MEDS: VANCOMYCIN HCL 125 MG/2.5ML SOLN PO SCH ×4 (05:48→23:48)
[2021-06-30] MEDS: RASPBERRY SYRUP 5 ML UDP PO SCH ×4 (05:48→23:48)
[2021-06-30] MEDS: INSULIN ASPART 100 UNITS/ML 3 ML PEN SC SCH ×3 (05:55→18:02)
[2021-06-30] MEDS ORDERED: PANTOprazole 40 MG in SYRINGE 0 ML IV STA (06:30)
[2021-06-30] MEDS: PEPTAMEN 1.5 CAL 1,000 ML BAG GT SCH ×3 (07:22→23:46)
[2021-06-30] MEDS: ACETYLCYSTEINE 20% INHAL SOLN 4ML ***DISPENSED BY RESP. INH SCH ×2 (07:52→19:53)
[2021-06-30] MEDS: SODIUM CHLOR 7% 4 ML NEB NEB SCH ×2 (07:52→20:01)
[2021-06-30] MEDS: FLUTICASONE FUROATE 100MCG 14 PUFFS/INHALER INH SCH (07:59)
[2021-06-30] MEDS: levETIRAcetam ORAL SOLN 100MG/ML PO SCH ×2 (07:59→21:07)
[2021-06-30] MEDS: UMECLIDINIUM/VILANTEROL 62.5/25MCG 7 PUFFS/INHALER INH SCH (07:59)
[2021-06-30] MEDS: GABAPENTIN 250 MG/5 ML 470 ML BTL PO SCH ×3 (07:59→21:06)
[2021-06-30] MEDS: ENOXAPARIN INJ 60 MG/0.6 ML SYR SQ SCH ×2 (08:00→23:47)
[2021-06-30] MEDS: FLUTICASONE PROPIONATE NA SPR 16 GM BTL SCH (08:00)
[2021-06-30] MEDS: FERROUS SULFATE 325 MG/7.4 ML UDP PO SCH ×2 (08:00→15:56)
[2021-06-30] MEDS: CLOPIDOGREL BISULFATE 75 MG TAB PO SCH (08:01)
[2021-06-30] MEDS: LORATADINE 10 MG TAB PO SCH (08:01)
[2021-06-30] MEDS: PHENYTOIN 100 MG/4 ML UDP PO SCH ×2 (08:01→12:49)
[2021-06-30] MEDS: PRIMIDONE 50 MG TAB PO SCH ×3 (08:01→21:09)
[2021-06-30] MEDS: LANSOPRAZOLE 30 MG SOLTAB PEG SCH ×2 (08:01→21:08)
[2021-06-30] MEDS: lisinopril 2.5 MG TAB PO SCH (08:01)
[2021-06-30] MEDS: METOPROLOL TARTRATE 25 MG TAB PO SCH ×3 (08:01→21:07)
[2021-06-30] MEDS: ASPIRIN 81 MG CHEW NG SCH (08:01)
[2021-06-30] MEDS: THIAMINE HCL 100 MG TAB PEG SCH ×2 (08:02→21:10)
[2021-06-30] MEDS ORDERED: POTASSIUM CHLORIDE 20 MEQ/15 ML UDC PO STA (09:10)
--- NOTE | 2021-06-30 09:12 | Critical Care Progress Note ---
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 Now post cardiac catheter she received a single drug-eluting stent to the proximal LAD for 90% stenosis and is also being monitored for a GIB and acute hypoxic/hypercapnic respiratory failure, likely secondary to component of acute CHF and severe underlying COPD. She is hemodynamically stable. Recommendations: Neuro -continue Keppra, phenytoin (dose being adjusted by pharmacy) primidone. Continue Neurontin for her peripheral neuropathy. She is profoundly deconditioned and will require aggressive therapy PT OT and likely long-term acute care rehab. Roxanol 5 mg p.o. every 6 hours for pain control per hospitalist. Cardiac -status post ST elevation IL with drug-eluting stent to the proximal LAD. Continue aspirin, Plavix, Lipitor and HAILEY inhibitor, metoprolol 12.5 mg 3 times daily. Appreciate cardiology assistance. Hemodynamically stable. Continue gentle Lasix as tolerated. History of Prinzmetal's angina, stable. Will restart Imdur if worsening hypertension. Echo from 06/12/2021 with an EF of 25 to 30%. Moderate tricuspid regurg. RVSP 40 to 50 mmHg. Extensive wall motion abnormalities of the left ventricle. Continue as needed diuretics. Respiratory -presumptive history of COPD. Continue Incruse Ellipta. Required multiple intubations and currently is trached. Status post tracheostomy 06/16/2021. CT chest concerning for mucous plugging and bilateral effusions with atelectasis. Continue vest percussive therapy 4 times daily given recurrent mucous plugging. Continue hypertonic saline. Continue Mucomyst twice daily. Bronchoscopy performed 06/26/2021. Thick mucoid impaction noted in the bilateral lower lobes. Cultures negative to date. Continue trach collar during the day and night. Can likely switch to a fenestrated trach next week. GI -status post EGD 06/21/2021. No obvious bleeding. PEG tube placed and receiving tube feeds via PEG tube at this time. We will need to hold tube feeds around the time of phenytoin administration due to absorption issues. Appreciate nutrition input. RENAL/LYTES -no significant issues at present. Urine output remains adequate. Continue as needed diuretics due to positive fluid state. - Foleystrict I's and O's ENDO -glycemic control per protocol HEME -She also likely has a component of anemia of chronic disease. 1 packed RBC given 06/25/2021. An extensive nonocclusive DVT noted in the right upper extremity. Occlusive superficial venous thrombus is seen within the basilic vei n. DVT on Xarelto likely secondary to interactions with phenytoin. Continue Lovenox full dose. ID -repeat bronchoscopy cultures from 06/26/2021 - to date. Bronchoscopy cult ures from 06/16/2021 growing Adrianne albicans. Likely contaminant. Urine cultures with lactobacillus species. Continue cefepime for total of 7 days. MRSA screen ordered. Prior MRSA screen is negative. Pro-Armando 06/24/2021 -. Blood cultures and urinalysis unremarkable. C. difficile Gene positive. Toxin negative. Continue treatment for C. difficile with enteral vancomycin as she is currently on antibiotics and having frequent diarrhea. [facility] Contact precautions. LINES/IV ACCESS - Right IJ CVL in place. DVT PROPHYLAXIS - SCDs, therapeutic Lovenox Stable for discharge to a rehab facility. Okay for downgrade to PCU status. Admission and Anticipated Discharge Date Admission Date: June 12, 2021 Subjective No significant changes overnight. Tolerated tracheostomy throughout the night and day yesterday. Review of Systems Review of Systems: All systems reviewed & are unremarkable except as noted in HPI & below Physical Exam Physical Exam: General: Alert. nontoxic. Skin: Warm, dry, Head: Atraumatic. Ears, nose, mouth and throat: Tracheostomy present Cardiovascular: Regular rate and rhythm. No murmurs. Left upper extremity edema. Respiratory: Diffuse crackles. Diminished at the bases bilaterally. Gastrointestinal: Non distended, PEG tube present Musculoskeletal: No deformity Results & Data Results & Data ([facility]) Vital Signs (Past 12 Hours) Vital Signs Temp Pulse Pulse Resp BP Pulse Ox 06/30/21 07:32 98.2 F 98 H 18 118/74 95 06/29/21 23:59 77 06/29/21 23:58 98.6 F 29 H 114/63 96 vital signs, labs and imaging personally reviewed Coding Level of Care Code 95771 Subseq Hosp Care Lvl 2 Diagnoses Tracheostomy dependence Z93.0 Mucoid impaction of bronchi T17.500A Non-ST elevation [place] (NSTEMI) I21.4 CHF (congestive heart failure) I50.9 Heart failure chronicity: acute Heart failure type: unspecified GI bleed K92.2 Acidemia E87.2 Respiratory failure with hypoxia and hypercapnia J96.21; J96.22 Chronicity: acute on chronic Pacemaker Z95.0 Anemia D64.89 Anemia type: other cause Other causes of anemia: other cause, not classified Syncope R55 Syncope type: unspecified H/O diastolic dysfunction Z86.79 PAD (peripheral artery disease) I73.9 Presence of stent in LAD coronary artery Z95.5 Cellulitis L03.90 Prinzmetal angina I20.1 Postoperative deep vein thrombosis T81.89XA; I82.409 Steinert myotonic dystrophy syndrome G71.11 (1) CHF (congestive heart failure) Heart failure chronicity: acute Heart failure type: unspecified Qualified Code(s): I50.9 - Heart failure, unspecified (2) Respiratory failure with hypoxia and hypercapnia Chronicity: acute on chronic Qualified Code(s): J96.21 - Acute and chronic respiratory failure with hypoxia; J96.22 - Acute and chronic respiratory failure with hypercapnia (3) Anemia Anemia type: other cause Other causes of anemia: other cause, not classified Qualified Code(s): D64.89 - Other specified anemias (4) Syncope Syncope type: unspecified Qualified Code(s): R55 - Syncope and collapse
--- NOTE | 2021-06-30 15:31 | Cardiology Progress Note ---
Date of Service June 30, 2021 Assessment & Plan (1) Non-ST elevation [place] (NSTEMI): (2) GI bleed: (3) DVT (deep venous thrombosis): (4) Tracheostomy dependence: Plan: Continue cefepime, atorvastatin, clopidogrel, lisinopril, metoprolol, lovenox. As noted, she is not a DOAC candidate due to the dilantin. Admission and Anticipated Discharge Date Admission Date: June 12, 2021 Subjective Patient seen in cardiology follow-up. Conversant. Telemetry reveals sinus rhythm in the 80s. Review of Systems Review of Systems: All systems reviewed & are unremarkable except as noted in HPI & below Physical Exam Physical Exam: Temp Pulse Resp BP Pulse Ox 36.8 C 88 22 149/73 H 96 06/30/21 11:57 06/30/21 11:57 06/30/21 11:57 06/30/21 11:57 06/30/21 11:57 Constitutional: + frail appearing Respiratory: Coarse breath sounds bilaterally with decreased breath sounds at the bases Cardiovascular: RRR, no murmur, no edema Neurologic: No focal deficits Results & Data ([facility]) Vital Signs (Past 12 Hours) Vital Signs Temp Pulse Pulse Pulse Resp BP Pulse Ox 06/30/21 11:57 36.8 C 88 22 149/73 H 96 06/30/21 08:00 92 H 06/30/21 07:55 93 H 22 95 06/30/21 07:32 36.8 C 98 H 18 118/74 95 Laboratory Results CBC 06/30/21 Range/Units 04:28 WBC 7.95 (4.8-10.8) K/uL RBC 2.73 L (4.2-5.4) M/uL Hgb 7.8 L (12.0-16.0) g/dL Hct 25.9 L (37-47) % Plt Count 429 H (130-400) K/uL Neut # (Auto) 5.87 (1.4-6.5) K/uL Lymph # (Auto) 0.75 L (1.2-3.4) K/uL [place] # (Auto) 1.17 H (0.11-0.59) K/uL Eos # (Auto) 0.10 (0-0.5) K/uL Baso # (Auto) 0.03 (0-0.2) K/uL Comprehensive Metabolic Panel 06/30/21 Range/Units 04:28 Sodium 139 (136-145) mmol/L Potassium 3.6 (3.5-5.1) mmol/L Chloride 108 H (98-107) mmol/L Carbon Dioxide 28 (21-32) mmol/L BUN 12 (7-18) mg/dl Creatinine 0.25 L (0.6-1.2) mg/dl Glucose 133 H (70-99) mg/dl Calcium 7.9 L (8.5-10.1) mg/dl Intake and Output 06/30/21 06/30/21 06/30/21 06:59 14:59 22:59 Intake Total 480 / 480 Output Total 800 / 1525 400 / 400 Balance -320 / -1045 -400 / -400 Intake: Tube Feeding 360 / 360 Tube Irrigant 120 / 120 Output: Stool 300 / 300 Urine Amount (Catheter) 500 / 1225 400 / 400 Rosas/Indwelling 500 / 1225 400 / 400 Other: Weight 42.4 kg Weight Measurement Method Built in [facility]
[2021-06-30] MEDS ORDERED: MAGNESIUM HYDROXIDE SUSP 30 ML UDC PEG PRN (16:40)
--- NOTE | 2021-06-30 16:54 | Hospitalist Progress Note ---
Date of Service June 30, 2021 Assessment & Plan (1) Non-ST elevation [place] (NSTEMI): Plan: per Dr. Acuña's notes with addendum ASSESSMENT AND PLAN: This is a 55-year-old female who presents with agitation, chest pain, pain all over and found to be with non-ST elevated myocardial infarction and congestive heart failure. 1. Respiratory Distress: The patient is s/p intubation and mechanical ventilation, possibly secondary to congestive heart failure, received Lasix in ER -- self extubated 06/14, then reintubated 06/15 -- s/p trach placement 06/16 -- Then she was placed back on Vent support Possible Aspiration Pneumonia Completed 10 days course of Unasyn Chest x-ray last night showed significant interval improvement in left lung aeration. Bilateral airspace opacities, improved since prior exam. Small bilateral pleural effusions with probable mild pulmonary edema. Continue vent management as per gravel wheeler CT chest on 06/24 showed moderate left and [id number] right pleural effusions. Near-complete opacification of the left lower lobe which could reflect subpleural atelectasis or pneumonia. Extensive right lower lobe and lingular opacities could reflect pneumonia or atelectasis. Continue vest percussive therapy 4 times daily given recurrent mucous plugging. Continue hypertonic saline. Continue Mucomyst twice daily. s/p Bronch 06/26/2021 cultures negative to date Trach collar continue trach management per hat forming machine operator 2. Non-ST elevated myocardial infarction: Status post cardiac catheterization and stent to the proximal LAD lesion, post-cath care as per cardiology. Ischemic Cardiomyopathy -- s/p Cardiac Cath 06/[address] Hinojosa: 1. Severe multivessel vessel coronary artery disease -90% possibly acute proximal LAD stenosis. Patent mid LAD stent 100% chronic mid RCA occlusion. Distal vessel fills via [id number] collaterals. 2. Elevated intracardiac filling pressure. LVEDP 34 3. Severe obstructive abdominal aortic disease (unable to pass 5 Fr catheter across stenosis). 4. Successful PCI of proximal to mid LAD with single drug-eluting stent (3.0 x 18 mm Soham; postdilated with 3.5 NC, overlaps proximal aspect of prior stent). Echo with EF 25-30%. extensive wall motion abnormalities with the inferior wall being akinetic at the base on ASA, Plavix, Imdur-->changed to Nitropaste, IV Metoprolol, Lisinopril, Lipitor Continue Plavix , aspirin, metoprolol and statin 06/29/2021 -- no cardiac symptoms -- Continue lisinopril, metoprolol, aspirin, Plavix, statin Severe Dysphagia Failed swallow eval High risk for aspiration. Status post PEG placement performed by Dr. Aiden Norris Continue PEG tube feeding 06/30/2021 (+) 240 residual yesterday 60 today check KUB Maalox PRN 3. Anemia, possible GI bleed -- Hemoglobin was 5.4 last admission, required 4 units of PRBCs. He was started on Protonix drip, now on IV PPI BID -- Hg 7.3 today -- GI not recommending EGD/Colonoscopy due to above -- Consider to transfuse if H/H drops below 7 06/30 hg 7.8 no signs of bleeding monitor closely Right Arm DVT -- on Lovenox 4. Elevated lactic acid and acidosis: Most likely from the acute coronary syndrome and respiratory distress. -- improved 5. The patient is on chronic pain medication. Oxycodone PRN 7. History of coronary artery disease. History of LAD stenting in the past as well as vasospastic angina 8. History of VT arrest due to coronary artery vasospasm versus acquired QT prolongation possible of azithromycin exposure, status post single chamber AICD. 9. History of peripheral vascular disease, superficial femoral artery occlusion, left subclavian artery stenosis. on aspirin and Plavix. 10. History of myotonic muscular dystrophy. PT, OT when stable. 11. History of pulmonary embolism. Coumadin was discontinued due to GI bleed in 2019. 12. History of left carotid endarterectomy in 2015. 13. History of chronic obstructive pulmonary disease: Continue her home inhalers. 14. History of seizures: On Keppra and phenytoin 15. History of diastolic congestive heart failure: per above 16. History of hypertension: 17. History of deep venous thrombosis prophylaxis: Will place on sequential compression devices for now because of possible gastrointestinal bleed. 18. Underweight Disposition Continue monitor in ICU Admission and Anticipated Discharge Date Admission Date: June 12, 2021 Subjective ff up for respiratory failure, NSTEMI, etc seen resting in bed, comfortable not in distress patient's at bedside visiting alert, tries to speak, also writes on her notebook to communicate reports "acid" in her stomach no nausea would like to have some ice chips no other symptoms Review of Systems Review of Systems: all noted and negative except for above Physical Exam Physical Exam: General- oriented x 3, not in distress, speaks in sentences with no effort or accessory muscle use Eyes- anicteric Neck- no JVD Trach in place- no bleeding /discharge Lungs- clear BS BL Heart- normal rate, regular rhythm; no murmurs Abdomen- normal bowel sounds, nondistended, soft, nontender Extremities- no pretibial edema, no calf tenderness Neuro- alert, oriented x 3; no gross focal neurologic deficits Skin- warm & dry Results & Data Results & Data ([facility]) Vital Signs (Past 12 Hours) Vital Signs Temp Pulse Pulse Pulse Resp BP Pulse Ox 06/30/21 16:00 87 06/30/21 15:58 36.7 C 89 24 137/67 95 06/30/21 11:57 36.8 C 88 22 149/73 H 96 06/30/21 08:00 92 H 06/30/21 07:55 93 H 22 95 06/30/21 07:32 36.8 C 98 H 18 118/74 95 all noted and reviewed including below
[2021-06-30] MEDS ORDERED: MoRPHine SULFATE 2 MG/ML CARP IV STA (17:50)
--- NOTE | 2021-06-30 18:51 | CT Scan Report ---
CT abd pelvis wo con CLINICAL HISTORY: abdominal pain, peg tube TECHNIQUE: Helical axial images of the abdomen and pelvis were obtained. Automated dose lowering tech niques and/or adjustment according to patient size were utilized for this exam. This exam was perfor med without intravenous contrast. COMPARISON: Comparison is made to CT pelvis 03/31/2014 FINDINGS: Lower chest: There is large atelectasis and/or consolidation in the bilateral lower lungs, left grea ter than right. Cardiomegaly is noted. There are small bilateral pleural effusions. Liver: Unremarkable. No focal lesions are seen. Gallbladder and biliary tree: No calcified gallstones. Normal caliber wall. No intra- or extrahepatic biliary ductal dilation. Pancreas: Unremarkable, no focal lesions. Spleen: Unremarkable. Adrenals: Unremarkable. Kidneys and ureters: Nonobstructive nephrolithiasis is seen. Bladder: Unremarkable. Reproductive organs: Again noted is a cystic left adnexal lesion measuring approximately 4 cm in diam eter. Bowel: Gastrostomy tube and rectal tube are in place. There is mild gastric wall thickening. Lymph nodes Retroperitoneal: Unremarkable. Mesenteric: Unremarkable. Pelvic: Unremarkable. Peritoneum: Normal Vessels: There are extensive atherosclerotic calcifications with calcifications within the aortic lum en. A low evaluation is limited by noncontrast technique, this likely represents hemodynamically sign ificant stenosis at multiple points along the abdominal aorta. Abdominal wall: There is a paucity of abdominal wall fat and musculature. Bones: Degenerative changes in the visualized spine. IMPRESSION: 1. Gastrostomy tube and rectal tube are seen. There is thickening of the proximal stomach which may be due to underdistention or represent gastritis. 2. Severe atherosclerotic disease with likely hemodynamically significant stenosis at multiple point s in the abdominal aorta, although evaluation is limited due to noncontrast technique. 3. Left adnexal cyst is similar in size and appearance compared to prior exam. 4. Additional findings as above. ACT 112: Negative or not required by law. Electronically signed by: Eber Hairston M.D. 06/30/2021 6:49 PM
[2021-06-30 19:07] LABS: Albumin Level 1.8 gm/dl (3.4-5.0); Bilirubin Direct 0.1 mg/dl (0-0.2); Bilirubin,Total 0.3 mg/dl (0.2-1); Total Protein 6.2 gm/dl (6.4-8.2)
--- NOTE | 2021-06-30 19:12 | XRay Report ---
XR KUB/Abdomen 1 view CLINICAL HISTORY: r/o ileus, obstruction TECHNIQUE: 1 view of the abdomen was obtained. Comparison: Comparison is made to chest one view 06/26/2021 FINDINGS: A gastrostomy tube is seen. The osseous structures are grossly unremarkable. The bowel gas pattern is nonobstructive. A moderate amount of stool is noted within the large bowel. IMPRESSION: Nonobstructive bowel gas pattern. ACT 112: Negative or not required by law. Electronically signed by: Eber Hairston M.D. 06/30/2021 7:11 PM
[2021-06-30] MEDS: ALBUT/IPRATROP 3MG/0.5MG NEB 3 ML VIAL NEB PRN (19:53)
[2021-06-30] MEDS: ATORVASTATIN 40 MG TAB PO SCH (21:06)
[2021-06-30] MEDS: PHENYTOIN SUSP 125 MG/5 ML PO SCH (21:10)
[2021-07-01] MEDS: INSULIN ASPART 100 UNITS/ML 3 ML PEN SC SCH ×4 (00:14→23:32)
[2021-07-01] MEDS: CEFEPIME 2,000 MG in SYRINGE 0 ML IV SCH (02:56)
[2021-07-01] MEDS: oxyCODONE HCL SOLN 5 MG/5 ML UDC PO PRN (04:09)
[2021-07-01] MEDS: VANCOMYCIN HCL 125 MG/2.5ML SOLN PO SCH ×4 (05:40→23:39)
[2021-07-01] MEDS: MoRPHine SULFATE 5 MG/0.25 ML UDP PO SCH ×4 (05:40→23:39)
[2021-07-01] MEDS: RASPBERRY SYRUP 5 ML UDP PO SCH ×4 (05:40→23:39)
[2021-07-01] MEDS: ACETYLCYSTEINE 20% INHAL SOLN 4ML ***DISPENSED BY RESP. INH SCH ×2 (07:25→19:25)
[2021-07-01] MEDS: ALBUT/IPRATROP 3MG/0.5MG NEB 3 ML VIAL NEB PRN ×2 (07:25→19:24)
[2021-07-01] MEDS: SODIUM CHLOR 7% 4 ML NEB NEB SCH ×2 (07:25→19:46)
[2021-07-01] MEDS: METOPROLOL TARTRATE 25 MG TAB PO SCH ×3 (08:53→20:56)
[2021-07-01] MEDS: THIAMINE HCL 100 MG TAB PEG SCH ×2 (08:53→20:54)
[2021-07-01] MEDS: PRIMIDONE 50 MG TAB PO SCH ×3 (08:53→20:54)
[2021-07-01] MEDS: PHENYTOIN 100 MG/4 ML UDP PO SCH ×2 (08:53→14:30)
[2021-07-01] MEDS: LORATADINE 10 MG TAB PO SCH (08:54)
[2021-07-01] MEDS: GABAPENTIN 250 MG/5 ML 470 ML BTL PO SCH ×3 (08:54→20:57)
[2021-07-01] MEDS: FERROUS SULFATE 325 MG/7.4 ML UDP PO SCH ×2 (08:54→17:46)
[2021-07-01] MEDS: lisinopril 2.5 MG TAB PO SCH (08:54)
[2021-07-01] MEDS: levETIRAcetam ORAL SOLN 100MG/ML PO SCH ×2 (08:54→20:55)
[2021-07-01] MEDS: FLUTICASONE FUROATE 100MCG 14 PUFFS/INHALER INH SCH (08:55)
[2021-07-01] MEDS: ASPIRIN 81 MG CHEW NG SCH (08:55)
[2021-07-01] MEDS: FLUTICASONE PROPIONATE NA SPR 16 GM BTL SCH (08:55)
[2021-07-01] MEDS: UMECLIDINIUM/VILANTEROL 62.5/25MCG 7 PUFFS/INHALER INH SCH (08:55)
[2021-07-01] MEDS: CLOPIDOGREL BISULFATE 75 MG TAB PO SCH (08:55)
[2021-07-01] MEDS: PEPTAMEN 1.5 CAL 1,000 ML BAG GT SCH ×3 (09:04→23:32)
[2021-07-01] MEDS: TUBE FEEDING WATER FLUSH GT SCH ×5 (09:04→23:37)
--- NOTE | 2021-07-01 10:18 | Cardiology Progress Note ---
Date of Service July 01, 2021 Assessment & Plan (1) Non-ST elevation [place] (NSTEMI): (2) CHF (congestive heart failure): (3) DVT (deep venous thrombosis): (4) GI bleed: Plan: Continue current medications including lovenox 50 mg SQ q 12 for treatment of upper extremity DVT. Not candidate for DOAC due to Dilantin. On ASA and plavix due to recent complex LAD intervention. Small bilateral pleural effusions noted on CT Abd/ pelvis. BP is stable. Will update BMP and consider resuming diuretics, will likely need potassium supplementation. Admission and Anticipated Discharge Date Admission Date: June 12, 2021 Subjective Patient seen in follow up. No complaints. SR in the 80s on telemetry. Review of Systems Review of Systems: Other (complete ROS limited by communication, with patient on trach collar ) Physical Exam Physical Exam: Temp Pulse Resp BP Pulse Ox 36.9 C 86 22 138/76 96 07/01/21 04:00 07/01/21 07:25 07/01/21 07:25 07/01/21 04:00 07/01/21 07:25 Constitutional: + ill appearing (chronically ill in appearance ); no acute distress Neck: R IJ line in place Respiratory: mildly decreased BS at that bases Cardiovascular: RRR, no murmur, no edema Chest (Breasts): Additional Comments: left infraclavicular ICD clean, dry and intact Gastrointestinal (Abdomen): PEG tube in place Neurologic: PERRL, EOMI, accommodation nl, no face palsy, no dysarthria Results & Data ([facility]) Vital Signs (Past 12 Hours) Vital Signs Temp Pulse Pulse Resp BP BP Pulse Ox 07/01/21 07:25 86 22 96 07/01/21 04:00 36.9 C 90 32 H 138/76 94 06/30/21 23:59 87 06/30/21 23:30 36.6 C 89 26 H 155/80 H 90 Laboratory Results Cardiac Enzymes 06/30/21 Range/Units 18:06 AST 19 (15-37) U/L Comprehensive Metabolic Panel 06/30/21 Range/Units 18:06 Direct Bilirubin 0.1 (0-0.2) mg/dl AST 19 (15-37) U/L ALT 53 (12-78) U/L Alkaline Phosphatase 145 H (45-117) U/L Total Protein 6.2 L (6.4-8.2) gm/dl Albumin 1.8 L (3.4-5.0) gm/dl Intake and Output 06/30/21 07/01/21 07/01/21 22:59 06:59 14:59 Intake Total 30 / 30 Output Total 350 / 1150 400 / 1150 Balance -320 / -1120 -400 / -1120 Intake: Tube Irrigant Output: Urine Amount (Catheter) 350 / 1150 400 / 1150 Rosas/Indwelling 350 / 1150 400 / 1150 Other: Weight 40.7 kg Weight Measurement Method Built in [facility] (1) CHF (congestive heart failure) Heart failure chronicity: acute Heart failure type: unspecified Qualified Code(s): I50.9 - Heart failure, unspecified
[2021-07-01 11:14] LABS: BUN Creatinine Ratio 34.9 (10-20); Calcium 8.6 mg/dl (8.5-10.1); Creatinine Clr Calc Pharmacy 115.3 ml/min; Est GFR (Non-African American) 121.7 ml/min; Potassium 3.8 mmol/L (3.5-5.1)
[2021-07-01] MEDS: ENOXAPARIN INJ 60 MG/0.6 ML SYR SQ SCH ×2 (11:50→23:38)
[2021-07-01] MEDS: LANSOPRAZOLE 30 MG SOLTAB PEG SCH ×2 (11:52→20:51)
--- NOTE | 2021-07-01 19:50 | Hospitalist Progress Note ---
Date of Service July 01, 2021 delayed entry date of service noted above Assessment & Plan (1) Non-ST elevation [place] (NSTEMI): Plan: per Dr. Acuña's notes with addendum ASSESSMENT AND PLAN: This is a 55-year-old female who presents with agitation, chest pain, pain all over and found to be with non-ST elevated myocardial infarction and congestive heart failure. 1. Respiratory Distress: The patient is s/p intubation and mechanical v entilation, possibly secondary to congestive heart failure, received Lasix in ER -- self extubated 06/14, then reintubated 06/15 -- s/p trach placement 06/16 -- Then she was placed back on Vent support Possible Aspiration Pneumonia Completed 10 days course of Unasyn Chest x-ray last night showed significant interval improvement in left lung aeration. Bilateral airspace opacities, improved since prior exam. Small bilateral pleural effusions with probable mild pulmonary edema. Continue vent management as per bowling floor desk clerk CT chest on 06/24 showed moderate left and [id number] right pleural effusions. Near-complete opacification of the left lower lobe which could reflect subpleural atelectasis or pneumonia. Extensive right lower lobe and lingular opacities could reflect pneumonia or atelectasis. Continue vest percussive therapy 4 times daily given recurrent mucous plugging. Continue hypertonic saline. Continue Mucomyst twice daily. s/p Bronch 06/26/2021 cultures negative to date Trach collar continue trach management per live source operator 2. Non-ST elevated myocardial infarction: Status post cardiac catheterization and stent to the proximal LAD lesion, post-cath care as per cardiology. Ischemic Cardiomyopathy -- s/p Cardiac Cath 06/[address] Hinojosa: 1. Severe multivessel vessel coronary artery disease -90% possibly acute proximal LAD stenosis. Patent mid LAD stent 100% chronic mid RCA occlusion. Distal vessel fills via [id number]-dh-[id number] collaterals. 2. Elevated intracardiac filling pressure. LVEDP 34 3. Severe obstructive abdominal aortic disease (unable to pass 5 Fr catheter across stenosis). 4. Successful PCI of proximal to mid LAD with single drug-eluting stent (3.0 x 18 mm Soham; postdilated with 3.5 NC, overlaps proximal aspect of prior stent). Echo with EF 25-30%. extensive wall motion abnormalities with the inferior wall being akinetic at the base on ASA, Plavix, Imdur-->changed to Nitropaste, IV Metoprolol, Lisinopril, Lipitor Continue Plavix , aspirin, metoprolol and statin 07/01/21 -- no cardiac symptoms -- Continue lisinopril, metoprolol, aspirin, Plavix, statin Severe Dysphagia Failed swallow eval High risk for aspiration. Status post PEG placement performed by Dr. Aiden Norris Continue PEG tube feeding 07/01/2021 CT abdomen and pelvis: No obstruction Continue tube feeding Maalox PRN 3. Anemia, possible GI bleed -- Hemoglobin was 5.4 last admission, required 4 units of PRBCs. He was started on Protonix drip, now on IV PPI BID -- Hg 7.3 today -- GI not recommending EGD/Colonoscopy due to above -- Consider to transfuse if H/H drops below 7 10/31 hg 7.8 no signs of bleeding monitor closely Right Arm DVT -- on Lovenox 4. Elevated lactic acid and acidosis: Most likely from the acute coronary syndrome and respiratory distress. -- improved 5. The patient is on chronic pain medication. Oxycodone PRN 7. History of coronary artery disease. History of LAD stenting in the past as well as vasospastic angina 8. History of VT arrest due to coronary artery vasospasm versus acquired QT prolongation possible of azithromycin exposure, status post single chamber AICD. 9. History of peripheral vascular disease, superficial femoral artery occlusion, left subclavian artery stenosis. on aspirin and Plavix. 10. History of myotonic muscular dystrophy. PT, OT when stable. 11. History of pulmonary embolism. Coumadin was discontinued due to GI bleed in 2019. 12. History of left carotid endarterectomy in 2015. 13. History of chronic obstructive pulmonary disease: Continue her home inhalers. 14. History of seizures: On Keppra and phenytoin 15. History of diastolic congestive heart failure: per above 16. History of hypertension: 17. History of deep venous thrombosis prophylaxis: Will place on sequential compression devices for now because of possible gastrointestinal bleed. 18. Underweight Disposition Continue monitor in ICU Admission and Anticipated Discharge Date Admission Date: June 12, 2021 Subjective Follow-up for acute hypoxic respiratory failure, NSTEMI, etc. Seen resting in bed, comfortable, no distress States she feels fine overall Denies chest pain, palpitations, dizziness, shortness of breath Abdominal pain has resolved No other symptoms Review of Systems Review of Systems: all noted and negative except for above Physical Exam Physical Exam: General- oriented x 2, not in distress, speaks in sentences with no effort or accessory muscle use Eyes- anicteric Neck- no JVD Trach in place: No bleeding or discharge Lungs- Mild rales bilateral bases, no wheezing Heart- normal rate, regular rhythm; no murmurs Abdomen- normal bowel sounds, nondistended, soft, nontender Extremities- no pretibial edema, no calf tenderness Neuro- alert, oriented x 2; no gross focal neurologic deficits Skin- warm & dry Results & Data Results & Data ([facility]) Vital Signs (Past 12 Hours) Vital Signs Temp Pulse Pulse Resp BP Pulse Ox 07/01/21 19:46 85 18 97 07/01/21 19:32 85 20 92 07/01/21 16:05 88 32 H 94 07/01/21 16:04 89 35 H 92 07/01/21 16:03 88 26 H 94 07/01/21 16:02 89 36 H 95 07/01/21 16:01 89 39 H 94 07/01/21 16:00 36.8 C 76 31 H 109/56 L 94 07/01/21 15:59 88 31 H 94 07/01/21 15:58 86 28 H 93 07/01/21 15:57 86 34 H 93 07/01/21 15:56 85 35 H 93 07/01/21 15:55 87 35 H 93 07/01/21 13:33 95 07/01/21 12:54 89 35 H 95 07/01/21 12:53 90 34 H 97 07/01/21 12:52 90 33 H 95 07/01/21 12:51 88 37 H 95 07/01/21 12:50 87 25 H 96 07/01/21 12:49 90 26 H 94 07/01/21 12:48 85 29 H 96 07/01/21 12:47 81 28 H 95 07/01/21 12:46 90 39 H 97 07/01/21 12:45 83 29 H 96 07/01/21 12:44 84 29 H 96 07/01/21 12:43 86 30 H 97 07/01/21 12:42 83 31 H 96 07/01/21 12:41 83 29 H 96 07/01/21 12:40 86 31 H 97 07/01/21 12:39 84 28 H 97 07/01/21 12:38 85 28 H 98 07/01/21 12:37 84 27 H 97 07/01/21 12:36 87 38 H 97 07/01/21 12:35 84 27 H 97 07/01/21 12:34 84 29 H 98 07/01/21 12:33 84 29 H 97 07/01/21 12:32 86 33 H 96 07/01/21 12:31 83 28 H 97 07/01/21 12:30 84 30 H 97 07/01/21 12:29 84 29 H 97 07/01/21 12:28 86 34 H 98 07/01/21 12:27 83 29 H 98 07/01/21 12:26 84 29 H 97 07/01/21 12:25 85 32 H 98 07/01/21 12:24 84 29 H 97 07/01/21 12:23 84 27 H 97 07/01/21 12:22 85 27 H 98 07/01/21 12:21 86 30 H 98 07/01/21 12:20 85 28 H 98 07/01/21 12:19 87 35 H 97 07/01/21 12:18 83 29 H 97 07/01/21 12:17 85 26 H 97 07/01/21 12:16 89 36 H 97 07/01/21 12:15 87 28 H 96 07/01/21 12:14 86 34 H 97 07/01/21 12:13 87 34 H 96 07/01/21 12:12 87 36 H 96 07/01/21 12:11 85 34 H 95 07/01/21 12:10 86 37 H 96 07/01/21 12:09 87 39 H 94 07/01/21 12:08 85 35 H 95 07/01/21 12:07 85 35 H 95 07/01/21 12:06 86 35 H 95 07/01/21 12:05 86 40 H 94 07/01/21 12:04 36.7 C 86 30 H 108/62 93 07/01/21 12:03 86 38 H 93 07/01/21 12:02 86 34 H 94 07/01/21 12:01 88 35 H 95 07/01/21 12:00 85 30 H 96 all noted and reviewed including below
[2021-07-01] MEDS: PHENYTOIN SUSP 125 MG/5 ML PO SCH (20:53)
[2021-07-01] MEDS: ATORVASTATIN 40 MG TAB PO SCH (20:55)
[2021-07-01] MEDS: ACETAMINOPHEN SUSP 325 MG/10.15 ML UDC PEG PRN (21:05)
[2021-07-02] MEDS: ACETAMINOPHEN SUSP 325 MG/10.15 ML UDC PEG PRN ×3 (03:01→20:40)
[2021-07-02] MEDS: RASPBERRY SYRUP 5 ML UDP PO SCH ×3 (05:36→17:10)
[2021-07-02] MEDS: MoRPHine SULFATE 5 MG/0.25 ML UDP PO SCH ×3 (05:36→17:11)
[2021-07-02] MEDS: VANCOMYCIN HCL 125 MG/2.5ML SOLN PO SCH ×3 (05:36→17:12)
[2021-07-02] MEDS: INSULIN ASPART 100 UNITS/ML 3 ML PEN SC SCH ×3 (06:45→23:11)
[2021-07-02 07:02] LABS: BUN Creatinine Ratio 44.5 (10-20); Blood Urea Nitrogen 11 mg/dl (7-18); Calcium 8.3 mg/dl (8.5-10.1); Carbon Dioxide 24 mmol/L (21-32); Chloride 107 mmol/L (98-107); Creatinine Clr Calc Pharmacy 161.4 ml/min; Est GFR (African American) > 150.0 ml/min; Est GFR (Non-African American) 135.9 ml/min; Glucose 130 mg/dl (70-99); Potassium 3.9 mmol/L (3.5-5.1); Sodium 137 mmol/L (136-145)
[2021-07-02] MEDS: PEPTAMEN 1.5 CAL 1,000 ML BAG GT SCH ×3 (07:53→22:06)
[2021-07-02] MEDS: ACETYLCYSTEINE 20% INHAL SOLN 4ML ***DISPENSED BY RESP. INH SCH ×2 (07:53→19:26)
[2021-07-02] MEDS: ALBUT/IPRATROP 3MG/0.5MG NEB 3 ML VIAL NEB PRN ×2 (07:53→19:26)
[2021-07-02] MEDS: TUBE FEEDING WATER FLUSH GT SCH ×6 (07:53→23:11)
[2021-07-02] MEDS: FUROSEMIDE INJ 20 MG/2 ML VIAL IV SCH (07:54)
[2021-07-02] MEDS: POTASSIUM CHLORIDE 20 MEQ/15 ML UDC PO SCH (07:54)
[2021-07-02] MEDS: LANSOPRAZOLE 30 MG SOLTAB PEG SCH ×2 (07:55→20:43)
[2021-07-02] MEDS: levETIRAcetam ORAL SOLN 100MG/ML PO SCH ×2 (07:56→20:42)
[2021-07-02] MEDS: LORATADINE 10 MG TAB PO SCH (07:56)
[2021-07-02] MEDS: THIAMINE HCL 100 MG TAB PEG SCH ×2 (07:57→20:44)
[2021-07-02] MEDS: SODIUM CHLOR 7% 4 ML NEB NEB SCH ×2 (07:57→19:26)
[2021-07-02] MEDS: lisinopril 2.5 MG TAB PO SCH (07:57)
[2021-07-02] MEDS: PRIMIDONE 50 MG TAB PO SCH ×3 (07:57→20:45)
[2021-07-02] MEDS: PHENYTOIN 100 MG/4 ML UDP PO SCH ×2 (07:58→14:31)
[2021-07-02] MEDS: CLOPIDOGREL BISULFATE 75 MG TAB PO SCH (07:59)
[2021-07-02] MEDS: METOPROLOL TARTRATE 25 MG TAB PO SCH ×3 (07:59→20:44)
[2021-07-02] MEDS: ASPIRIN 81 MG CHEW NG SCH (07:59)
[2021-07-02] MEDS: FERROUS SULFATE 325 MG/7.4 ML UDP PO SCH ×2 (08:00→17:10)
[2021-07-02] MEDS: GABAPENTIN 250 MG/5 ML 470 ML BTL PO SCH ×3 (08:03→20:40)
[2021-07-02 08:21] LABS: Basophils # (auto) 0.01 K/uL (0-0.2); Basophils % (auto) 0.1 %; Eosinophils # (auto) 0.11 K/uL (0-0.5); Eosinophils % (auto) 1.6 %; Hematocrit (blood only) 27.6 % (37-47); Immature Granulocytes # (auto) 0.02 K/uL (0.00-0.02); Immature Granulocytes % (auto) 0.3 %; Lymphocytes # (auto) 0.91 K/uL (1.2-3.4); Lymphocytes % (auto) 13.3 %; Mean Corpuscular Hemoglobin 27.9 pg (25-34); Mean Corpuscular Volume 96.2 fL (80-100); Mean Platelet Volume 9.2 fL (7.4-10.4); Monocytes # (auto) 0.78 K/uL (0.11-0.59); Monocytes % (auto) 11.4 %; Neutrophils # (auto) 5.02 K/uL (1.4-6.5); Neutrophils % (auto) 73.3 %; Platelet Count 580 K/uL (130-400); RDW Coefficient of Variation 20.8 % (11.5-14.5); RDW Standard Deviation 72.9 fL (36.4-46.3); Red Blood Count 2.87 M/uL (4.2-5.4); White Blood Count 6.85 K/uL (4.8-10.8)
[2021-07-02] MEDS: FLUTICASONE PROPIONATE NA SPR 16 GM BTL SCH (09:37)
[2021-07-02] MEDS: UMECLIDINIUM/VILANTEROL 62.5/25MCG 7 PUFFS/INHALER INH SCH (09:38)
[2021-07-02] MEDS: FLUTICASONE FUROATE 100MCG 14 PUFFS/INHALER INH SCH (09:38)
[2021-07-02 09:44] LABS: Anisocytosis Present; Hypochromasia Present; Polychromasia 1+
[2021-07-02] MEDS: ENOXAPARIN INJ 60 MG/0.6 ML SYR SQ SCH ×2 (12:14→22:10)
--- NOTE | 2021-07-02 13:00 | Cardiology Progress Note ---
Date of Service July 02, 2021 Assessment & Plan (1) Non-ST elevation [place] (NSTEMI): (2) CHF (congestive heart failure): (3) DVT (deep venous thrombosis): (4) GI bleed: Plan: Continue current medications including lovenox 50 mg SQ q 12 for treatment of upper extremity DVT. Not candidate for DOAC due to Dilantin. On ASA and plavix due to recent complex LAD intervention. Small bilateral pleural effusions noted on CT Abd/ pelvis. Continue furosemide 20 mg IV daily, and KCL 20 meq daily. Will need regular follow up of BMP , but not daily. Admission and Anticipated Discharge Date Admission Date: June 12, 2021 Subjective Pt seen in follow up. Awake, oriented. Vigorous diuresis with furosemide. Physical Exam Physical Exam: Temp Pulse Resp BP Pulse Ox 36.4 C L 93 H 24 122/75 90 07/02/21 08:20 07/02/21 08:20 07/02/21 08:20 07/02/21 08:20 07/02/21 08:20 Constitutional: + ill appearing Respiratory: decreased BS at the bases Cardiovascular: RRR, no murmur, no edema Gastrointestinal (Abdomen): normal bowel sounds, soft, nontender, no hepatosplenomegaly Neurologic: PERRL, EOMI, accommodation nl, no face palsy, no dysarthria Results & Data ([facility]) Vital Signs (Past 12 Hours) Vital Signs Temp Pulse Pulse Resp BP BP Pulse Ox 07/02/21 08:20 36.4 C L 93 H 24 122/75 90 07/02/21 07:58 90 22 93 07/02/21 07:54 86 21 96 07/02/21 04:00 36.4 C L 82 24 105/58 L 96 Laboratory Results CBC 07/02/21 Range/Units 08:12 WBC 6.85 (4.8-10.8) K/uL RBC 2.87 L (4.2-5.4) M/uL Hgb 8.0 L (12.0-16.0) g/dL Hct 27.6 L (37-47) % Plt Count 580 H (130-400) K/uL Neut # (Auto) 5.02 (1.4-6.5) K/uL Lymph # (Auto) 0.91 L (1.2-3.4) K/uL [place] # (Auto) 0.78 H (0.11-0.59) K/uL Eos # (Auto) 0.11 (0-0.5) K/uL Baso # (Auto) 0.01 (0-0.2) K/uL Comprehensive Metabolic Panel 07/02/21 Range/Units 04:39 Sodium 137 (136-145) mmol/L Potassium 3.9 (3.5-5.1) mmol/L Chloride 107 (98-107) mmol/L Carbon Dioxide 24 (21-32) mmol/L BUN 11 (7-18) mg/dl Creatinine 0.25 L (0.6-1.2) mg/dl Glucose 130 H (70-99) mg/dl Calcium 8.3 L (8.5-10.1) mg/dl Intake and Output 07/01/21 07/02/21 07/02/21 22:59 06:59 14:59 Intake Total 120 / 1020 180 / 1020 Output Total 520 / 1007 161 / 1007 Balance -400 / 13 Intake: Other 120 / 300 180 / 300 Output: Urine Amount (Catheter) 520 / 1005 160 / 1005 Rosas/Indwelling 520 / 1005 160 / 1005 # Bowel Movements 1 / 2 Other: Other Intake Source medications + flush medications (1) CHF (congestive heart failure) Heart failure chronicity: acute Heart failure type: unspecified Qualified Code(s): I50.9 - Heart failure, unspecified
--- NOTE | 2021-07-02 16:37 | Hospitalist Progress Note ---
Date of Service July 02, 2021 Assessment & Plan (1) Non-ST elevation [place] (NSTEMI): Plan: per Dr. Acuña's notes with addendum ASSESSMENT AND PLAN: This is a 55-year-old female who presents with agitation, chest pain, pain all over and found to be with non-ST elevated myocardial infarction and congestive heart failure. 1. Respiratory Distress: The patient is s/p intubation and mechanical ventilation, possibly secondary to congestive heart failure, received Lasix in ER -- self extubated 06/14, then reintubated 06/15 -- s/p trach placement 06/16 -- Then she was placed back on Vent support Possible Aspiration Pneumonia Completed 10 days course of Unasyn Chest x-ray last night showed significant interval improvement in left lung aeration. Bilateral airspace opacities, improved since prior exam. Small bilateral pleural effusions with probable mild pulmonary edema. Continue vent management as per sample puller CT chest on 06/24 showed moderate left and rodom-sk-efafbbwi right pleural effusions. Near-complete opacification of the left lower lobe which could reflect subpleural atelectasis or pneumonia. Extensive right lower lobe and lingular opacities could reflect pneumonia or atelectasis. Continue vest percussive therapy 4 times daily given recurrent mucous plugging. Continue hypertonic saline. Continue Mucomyst twice daily. s/p Bronch 06/26/2021 cultures negative to date Trach collar, tolerating well so far continue trach management per customer engineer 2. Non-ST elevated myocardial infarction: Status post cardiac catheterization and stent to the proximal LAD lesion, post-cath care as per cardiology. Ischemic Cardiomyopathy -- s/p Cardiac Cath 06/[address] Hinojosa: 1. Severe multivessel vessel coronary artery disease -90% possibly acute proximal LAD stenosis. Patent mid LAD stent 100% chronic mid RCA occlusion. Distal vessel fills via bohn-uq-uvied collaterals. 2. Elevated intracardiac filling pressure. LVEDP 34 3. Severe obstructive abdominal aortic disease (unable to pass 5 Fr catheter across stenosis). 4. Successful PCI of proximal to mid LAD with single drug-eluting stent (3.0 x 18 mm Soham; postdilated with 3.5 NC, overlaps proximal aspect of prior stent). Echo with EF 25-30%. extensive wall motion abnormalities with the inferior wall being akinetic at the base on ASA, Plavix, Imdur-->changed to Nitropaste, IV Metoprolol, Lisinopril, Lipitor Continue Plavix , aspirin, metoprolol and statin 07/02/2021 -- no cardiac symptoms -- Continue lisinopril, metoprolol, aspirin, Plavix, statin Continue Lasix Severe Dysphagia Failed swallow eval High risk for aspiration. Status post PEG placement performed by Dr. Aiden Norris 07/01/2021 Was reporting abdominal pain, resolved CT abdomen and pelvis: No obstruction Continue tube feeding Maalox PRN 3. Anemia, possible GI bleed -- Hemoglobin was 5.4 last admission, required 4 units of PRBCs. He was started on Protonix drip, now on IV PPI BID -- Hg 7.3 today -- GI not recommending EGD/Colonoscopy due to above -- Consider to transfuse if H/H drops below 7 Hemoglobin 8.0 no signs of bleeding monitor closely Right Arm DVT -- on Lovenox 4. Elevated lactic acid and acidosis: Most likely from the acute coronary syndrome and respiratory distress. -- improved 5. The patient is on chronic pain medication. Oxycodone PRN 7. History of coronary artery disease. History of LAD stenting in the past as well as vasospastic angina 8. History of VT arrest due to coronary artery vasospasm versus acquired QT prolongation possible of azithromycin exposure, status post single chamber AICD. 9. History of peripheral vascular disease, superficial femoral artery occlusion, left subclavian artery stenosis. on aspirin and Plavix. 10. History of myotonic muscular dystrophy. PT, OT when stable. 11. History of pulmonary embolism. Coumadin was discontinued due to GI bleed in 2019. 12. History of left carotid endarterectomy in 2015. 13. History of chronic obstructive pulmonary disease: Continue her home inhalers. 14. History of seizures: On Keppra and phenytoin 15. History of diastolic congestive heart failure: per above 16. History of hypertension: 17. History of deep venous thrombosis prophylaxis: Will place on sequential compression devices for now because of possible gastrointestinal bleed. 18. Underweight Disposition Referrals for LTAC's placed Admission and Anticipated Discharge Date Admission Date: June 12, 2021 Subjective Follow-up for respiratory failure, NSTEMI, etc. Seen resting in bed, comfortable, not in distress On trach collar States she feels fine overall No dyspnea, chest pain, palpitations, dizziness abdominal pain No diarrhea noted No other symptoms Review of Systems Review of Systems: all noted and negative except for above Physical Exam Physical Exam: General- oriented x 2, not in distress, speaks in sentences with no effort or accessory muscle use Eyes- anicteric Neck- no JVD Trach in place: No bleeding or discharge Lungs- clear breath sounds bilaterally, no rales/wheezes Heart- normal rate, regular rhythm; no murmurs Abdomen- normal bowel sounds, nondistended, soft, nontender PEG tube in place Extremities- no pretibial edema, no calf tenderness Neuro- alert, oriented x2; no gross focal neurologic deficits Skin- warm & dry Results & Data Results & Data ([facility]) Vital Signs (Past 12 Hours) Vital Signs Temp Pulse Pulse Resp BP Pulse Ox 07/02/21 13:08 36.8 C 88 24 114/69 96 07/02/21 08:20 36.4 C L 93 H 24 122/75 90 07/02/21 07:58 90 22 93 07/02/21 07:54 86 21 96 all noted and reviewed including below
[2021-07-02] MEDS: ATORVASTATIN 40 MG TAB PO SCH (20:44)
[2021-07-02] MEDS: PHENYTOIN SUSP 125 MG/5 ML PO SCH (21:26)
[2021-07-03] MEDS: VANCOMYCIN HCL 125 MG/2.5ML SOLN PO SCH ×5 (00:40→23:53)
[2021-07-03] MEDS: MoRPHine SULFATE 5 MG/0.25 ML UDP PO SCH ×5 (00:40→23:53)
[2021-07-03] MEDS: RASPBERRY SYRUP 5 ML UDP PO SCH ×5 (00:40→23:51)
[2021-07-03] MEDS: TUBE FEEDING WATER FLUSH GT SCH ×5 (06:59→23:51)
[2021-07-03] MEDS: PEPTAMEN 1.5 CAL 1,000 ML BAG GT SCH ×4 (06:59→23:51)
[2021-07-03] MEDS: INSULIN ASPART 100 UNITS/ML 3 ML PEN SC SCH ×3 (07:16→23:54)
[2021-07-03] MEDS: ACETYLCYSTEINE 20% INHAL SOLN 4ML ***DISPENSED BY RESP. INH SCH ×2 (07:25→19:47)
[2021-07-03] MEDS: SODIUM CHLOR 7% 4 ML NEB NEB SCH ×2 (07:25→19:47)
[2021-07-03] MEDS: ALBUT/IPRATROP 3MG/0.5MG NEB 3 ML VIAL NEB PRN ×2 (07:28→19:47)
[2021-07-03] MEDS: PRIMIDONE 50 MG TAB PO SCH ×3 (08:20→20:23)
[2021-07-03] MEDS: ASPIRIN 81 MG CHEW NG SCH (08:21)
[2021-07-03] MEDS: CLOPIDOGREL BISULFATE 75 MG TAB PO SCH (08:21)
[2021-07-03] MEDS: FUROSEMIDE INJ 20 MG/2 ML VIAL IV SCH (08:22)
[2021-07-03] MEDS: lisinopril 2.5 MG TAB PO SCH (08:22)
[2021-07-03] MEDS: THIAMINE HCL 100 MG TAB PEG SCH ×2 (08:22→20:23)
[2021-07-03] MEDS: METOPROLOL TARTRATE 25 MG TAB PO SCH ×3 (08:22→20:20)
[2021-07-03] MEDS: LANSOPRAZOLE 30 MG SOLTAB PEG SCH ×2 (08:23→20:27)
[2021-07-03] MEDS: GABAPENTIN 250 MG/5 ML 470 ML BTL PO SCH ×3 (08:25→20:27)
[2021-07-03] MEDS: FERROUS SULFATE 325 MG/7.4 ML UDP PO SCH ×2 (08:25→17:06)
[2021-07-03] MEDS: levETIRAcetam ORAL SOLN 100MG/ML PO SCH ×2 (08:26→20:20)
[2021-07-03] MEDS: PHENYTOIN 100 MG/4 ML UDP PO SCH ×2 (08:26→15:01)
[2021-07-03] MEDS: FLUTICASONE PROPIONATE NA SPR 16 GM BTL SCH (08:27)
[2021-07-03] MEDS: POTASSIUM CHLORIDE 20 MEQ/15 ML UDC PO SCH (08:27)
[2021-07-03] MEDS: FLUTICASONE FUROATE 100MCG 14 PUFFS/INHALER INH SCH (08:27)
[2021-07-03] MEDS: LORATADINE 10 MG TAB PO SCH (08:28)
[2021-07-03] MEDS: UMECLIDINIUM/VILANTEROL 62.5/25MCG 7 PUFFS/INHALER INH SCH (08:28)
[2021-07-03] MEDS: ACETAMINOPHEN SUSP 325 MG/10.15 ML UDC PEG PRN ×2 (09:04→15:29)
--- NOTE | 2021-07-03 11:30 | Cardiology Progress Note ---
Date of Service July 03, 2021 Assessment & Plan (1) Non-ST elevation [place] (NSTEMI): (2) CHF (congestive heart failure): (3) DVT (deep venous thrombosis): (4) GI bleed: Plan: Continue current medications including lovenox 50 mg SQ q 12 for treatment of upper extremity DVT. Not candidate for DOAC due to Dilantin. On ASA and plavix due to recent complex LAD intervention. Small bilateral pleural effusions noted on CT Abd/ pelvis. Continue furosemide 20 mg IV daily, and KCL 20 meq daily. Will need regular follow up of BMP , but not daily. I/Os not accurate as she is leaking around Rosas, Will change catheter. Admission and Anticipated Discharge Date Admission Date: June 12, 2021 Subjective Pt seen in follow up. Still requiring high flow oxygen via trach collar. Physical Exam Physical Exam: Temp Pulse Resp BP Pulse Ox 36.8 C 89 38 H 123/69 94 07/03/21 04:00 07/03/21 10:00 07/03/21 10:00 07/03/21 08:00 07/03/21 10:00 Constitutional: + ill appearing and + cachectic Respiratory: Auscultation: + diminished lung sounds Cardiovascular: RRR, no murmur, no edema Gastrointestinal (Abdomen): normal bowel sounds, soft, nontender, no hepatosplenomegaly Neurologic: conversant, follows commands Genitourinary: Rosas catheter in place , draining clear yellow urine Results & Data ([facility]) Vital Signs (Past 12 Hours) Vital Signs Temp Pulse Pulse Pulse Resp BP BP 07/03/21 10:00 89 38 H 07/03/21 08:00 93 H 24 123/69 07/03/21 07:41 83 20 07/03/21 07:30 86 21 07/03/21 05:00 20 07/03/21 04:00 36.8 C 84 24 108/64 07/03/21 00:00 36.8 C 82 29 H 123/65 07/02/21 23:28 20 Pulse Ox 07/03/21 10:00 94 07/03/21 08:00 97 07/03/21 07:41 99 07/03/21 07:30 97 07/03/21 05:00 90 07/03/21 04:00 99 07/03/21 00:00 92 07/02/21 23:28 97 (1) CHF (congestive heart failure) Heart failure chronicity: acute Heart failure type: unspecified Qualified Code(s): I50.9 - Heart failure, unspecified
[2021-07-03] MEDS: ENOXAPARIN INJ 60 MG/0.6 ML SYR SQ SCH ×2 (11:34→23:50)
[2021-07-03] MEDS: ATORVASTATIN 40 MG TAB PO SCH (20:20)
[2021-07-03] MEDS: PHENYTOIN SUSP 125 MG/5 ML PO SCH (20:22)
--- NOTE | 2021-07-03 21:34 | Hospitalist Progress Note ---
Date of Service July 03, 2021 Assessment & Plan (1) Non-ST elevation [place] (NSTEMI): Plan: ASSESSMENT AND PLAN: This is a 55-year-old female who presents with agitation, chest pain, pain all over and found to be with non-ST elevated myocardial infarction and congestive heart failure. 1. Respiratory Distress: The patient is s/p intubation and mechanical ventilation, possibly secondary to congestive heart failure, received Lasix in ER -- self extubated 06/14, then reintubated 06/15 -- s/p trach placement 06/16 -- Then she was placed back on Vent support Possible Aspiration Pneumonia Completed 10 days course of Unasyn Chest x-ray last night showed significant interval improvement in left lung aeration. Bilateral airspace opacities, improved since prior exam. Small bilateral pleural effusions with probable mild pulmonary edema. Continue vent management as per addiction professional CT chest on 06/24 showed moderate left and [id number] right pleural effusions. Near-complete opacification of the left lower lobe which could refl ect subpleural atelectasis or pneumonia. Extensive right lower lobe and lingular opacities could reflect pneumonia or atelectasis. Continue vest percussive therapy 4 times daily given recurrent mucous plugging. Continue hypertonic saline. Continue Mucomyst twice daily. s/p Bronch 06/26/2021 cultures negative to date Trach collar, tolerating well so far continue trach management per blood splatter analyst 2. Non-ST elevated myocardial infarction: Status post cardiac catheterization and stent to the proximal LAD lesion, post-cath care as per cardiology. Ischemic Cardiomyopathy -- s/p Cardiac Cath 06/[address] Hinojosa: 1. Severe multivessel vessel coronary artery disease -90% possibly acute proximal LAD stenosis. Patent mid LAD stent 100% chronic mid RCA occlusion. Distal vessel fills via [id number] collaterals. 2. Elevated intracardiac filling pressure. LVEDP 34 3. Severe obstructive abdominal aortic disease (unable to pass 5 Fr catheter across stenosis). 4. Successful PCI of proximal to mid LAD with single drug-eluting stent (3.0 x 18 mm [place]; postdilated with 3.5 NC, overlaps proximal aspect of prior stent). Echo with EF 25-30%. extensive wall motion abnormalities with the inferior wall being akinetic at the base on ASA, Plavix, Imdur-->changed to Nitropaste, IV Metoprolol, Lisinopril, Lipitor Continue Plavix , aspirin, metoprolol and statin -- no cardiac symptoms -- Continue Lasix Severe Dysphagia Failed swallow eval High risk for aspiration. Status post PEG placement performed by Dr. Aiden Norris Was reporting abdominal pain CT abdomen and pelvis: No obstruction Continue tube feeding Maalox PRN 3. Anemia, possible GI bleed -- Hemoglobin was 5.4 last admission, required 4 units of PRBCs. He was started on Protonix drip, now on IV PPI BID -- Hg stable today -- GI not recommending EGD/Colonoscopy due to above -- Consider to transfuse if H/H drops below 7 -- no signs of bleeding -- monitor closely Right Arm DVT -- on Lovenox 4. Elevated lactic acid and acidosis: Most likely from the acute coronary syndrome and respiratory distress. -- improved 5. The patient is on chronic pain medication. Oxycodone PRN 7. History of coronary artery disease. History of LAD stenting in the past as well as vasospastic angina 8. History of VT arrest due to coronary artery vasospasm versus acquired QT prolongation possible of azithromycin exposure, status post single chamber AICD. 9. History of peripheral vascular disease, superficial femoral artery occlusion, left subclavian artery stenosis. on aspirin and Plavix. 10. History of myotonic muscular dystrophy. PT, OT when stable. 11. History of pulmonary embolism. Coumadin was discontinued due to GI bleed in 2019. 12. History of left carotid endarterectomy in 2016. 13. History of chronic obstructive pulmonary disease: Continue her home inhalers. 14. History of seizures: On Keppra and phenytoin 15. History of diastolic congestive heart failure: per above 16. History of hypertension: 17. History of deep venous thrombosis prophylaxis: Will place on sequential compression devices for now because of possible gastrointestinal bleed. 18. Underweight Disposition Waiting for placement Admission and Anticipated Discharge Date Admission Date: June 12, 2021 Subjective Patient was seen and examined for follow-up respiratory failure and NSTEMI Lying in bed with no acute respiratory distress Continue to require high flow oxygen with trach collar As per nurse patient had 2 coffee-ground liquid stool Denies any chest pain, palpitation, dizziness, shortness of breath. Review of Systems Review of Systems: All systems reviewed & are unremarkable except as noted in Subjective Physical Exam Physical Exam: General- No acute distress Head- atraumatic Eyes- PERRL, EOMI, ENT- +trach in placed Neck- supple, no JVD Lungs- clear to auscultation Heart- regular rhythm; no murmur Abdomen- normal bowel sounds, soft, nontender Extremities- no calf tenderness Neuro- alert, oriented x 3; PERRL, EOMI; no facial palsy; no dysarthria Skin- warm & dry Results & Data Results & Data ([facility]) Vital Signs (Past 12 Hours) Vital Signs Temp Pulse Pulse Resp BP BP Pulse Ox 07/03/21 19:48 79 22 99 07/03/21 19:09 81 07/03/21 19:00 82 37 H 99 07/03/21 18:32 36.4 C L 93 H 20 120/57 L 90 07/03/21 16:45 91 H 07/03/21 14:00 85 28 H 98 07/03/21 12:00 87 17 110/67 95 07/03/21 10:00 89 38 H 94
[2021-07-04] MEDS: TUBE FEEDING WATER FLUSH GT SCH ×7 (01:13→23:26)
[2021-07-04] MEDS: ALBUT/IPRATROP 3MG/0.5MG NEB 3 ML VIAL NEB PRN ×3 (05:05→19:12)
[2021-07-04 05:27] LABS: BUN Creatinine Ratio 58.2 (10-20); Blood Urea Nitrogen 13 mg/dl (7-18); Calcium 8.3 mg/dl (8.5-10.1); Carbon Dioxide 28 mmol/L (21-32); Chloride 105 mmol/L (98-107); Creatinine Clr Calc Pharmacy 183.5 ml/min; Est GFR (African American) > 150.0 ml/min; Est GFR (Non-African American) 141.8 ml/min; Glucose 88 mg/dl (70-99); Potassium 3.9 mmol/L (3.5-5.1); Sodium 137 mmol/L (136-145)
[2021-07-04] MEDS: RASPBERRY SYRUP 5 ML UDP PO SCH ×4 (05:32→23:27)
[2021-07-04] MEDS: MoRPHine SULFATE 5 MG/0.25 ML UDP PO SCH ×4 (05:32→23:27)
[2021-07-04] MEDS: VANCOMYCIN HCL 125 MG/2.5ML SOLN PO SCH ×4 (05:32→23:26)
[2021-07-04] MEDS: INSULIN ASPART 100 UNITS/ML 3 ML PEN SC SCH ×3 (06:21→17:54)
[2021-07-04] MEDS: PEPTAMEN 1.5 CAL 1,000 ML BAG GT SCH ×3 (06:22→17:57)
[2021-07-04] MEDS: ACETYLCYSTEINE 20% INHAL SOLN 4ML ***DISPENSED BY RESP. INH SCH (07:48)
[2021-07-04] MEDS: SODIUM CHLOR 7% 4 ML NEB NEB SCH ×2 (07:48→19:11)
[2021-07-04] MEDS: PRIMIDONE 50 MG TAB PO SCH ×3 (08:14→20:19)
[2021-07-04] MEDS: ASPIRIN 81 MG CHEW NG SCH (08:14)
[2021-07-04] MEDS: POTASSIUM CHLORIDE 20 MEQ/15 ML UDC PO SCH (08:14)
[2021-07-04] MEDS: PHENYTOIN 100 MG/4 ML UDP PO SCH ×2 (08:15→14:36)
[2021-07-04] MEDS: METOPROLOL TARTRATE 25 MG TAB PO SCH ×3 (08:15→20:18)
[2021-07-04] MEDS: LANSOPRAZOLE 30 MG SOLTAB PEG SCH ×2 (08:15→20:16)
[2021-07-04] MEDS: levETIRAcetam ORAL SOLN 100MG/ML PO SCH ×2 (08:15→20:17)
[2021-07-04] MEDS: THIAMINE HCL 100 MG TAB PEG SCH ×2 (08:15→20:20)
[2021-07-04] MEDS: lisinopril 2.5 MG TAB PO SCH (08:15)
[2021-07-04] MEDS: LORATADINE 10 MG TAB PO SCH (08:15)
[2021-07-04] MEDS: CLOPIDOGREL BISULFATE 75 MG TAB PO SCH (08:15)
[2021-07-04] MEDS: FUROSEMIDE INJ 20 MG/2 ML VIAL IV SCH (08:16)
[2021-07-04] MEDS: FERROUS SULFATE 325 MG/7.4 ML UDP PO SCH ×2 (08:16→18:09)
[2021-07-04] MEDS: UMECLIDINIUM/VILANTEROL 62.5/25MCG 7 PUFFS/INHALER INH SCH (08:19)
[2021-07-04] MEDS: FLUTICASONE FUROATE 100MCG 14 PUFFS/INHALER INH SCH (08:19)
[2021-07-04] MEDS: FLUTICASONE PROPIONATE NA SPR 16 GM BTL SCH (08:20)
[2021-07-04] MEDS: GABAPENTIN 250 MG/5 ML 470 ML BTL PO SCH ×3 (08:49→20:16)
[2021-07-04 10:35] LABS: Hematocrit (blood only) 28.8 % (37-47); Hemoglobin 8.5 g/dL (12.0-16.0); Mean Corpuscular Hemoglobin 28.1 pg (25-34); Mean Corpuscular Hgb Conc 29.5 g/dL (32-36); Mean Platelet Volume 8.9 fL (7.4-10.4); Platelet Count 707 K/uL (130-400); RDW Coefficient of Variation 19.7 % (11.5-14.5); RDW Standard Deviation 67.8 fL (36.4-46.3); Red Blood Count 3.03 M/uL (4.2-5.4); White Blood Count 5.21 K/uL (4.8-10.8)
[2021-07-04] MEDS: ENOXAPARIN INJ 60 MG/0.6 ML SYR SQ SCH ×2 (11:10→23:26)
--- NOTE | 2021-07-04 14:10 | Cardiology Progress Note ---
Date of Service July 04, 2021 Assessment & Plan (1) Non-ST elevation [place] (NSTEMI): (2) CHF (congestive heart failure): (3) DVT (deep venous thrombosis): (4) GI bleed: Plan: Continue current medications including lovenox 50 mg SQ q 12 for treatment of upper extremity DVT. Not candidate for DOAC due to Dilantin. On ASA and plavix due to recent complex LAD intervention. Small bilateral pleural effusions noted on CT Abd/ pelvis. Continue furosemide 20 mg IV daily, and KCL 20 meq daily. Will need regular follow up of BMP , but not daily. I/Os not accurate as she is leaking around Ros[place], Admission and Anticipated Discharge Date Admission Date: June 12, 2021 Subjective Pt seen in follow up. Still with high Oxygen requirement, but getting stronger, and she is back to her baseline personality. Physical Exam Physical Exam: Temp Pulse Resp BP Pulse Ox 36.8 C 87 38 H 95/58 L 98 07/04/21 09:35 07/04/21 13:25 07/04/21 13:25 07/04/21 09:35 07/04/21 13:25 Constitutional: + ill appearing Respiratory: Auscultation: + diminished lung sounds (decreased BS at the bases ) Cardiovascular: RRR, no murmur, no edema Musculoskeletal: cachetic Neurologic: PERRL, EOMI, accommodation nl, no face palsy, no dysarthria Results & Data ([facility]) Laboratory Results CBC 07/04/21 Range/Units 10:23 WBC 5.21 (4.8-10.8) K/uL RBC 3.03 L (4.2-5.4) M/uL Hgb 8.5 L (12.0-16.0) g/dL Hct 28.8 L (37-47) % Plt Count 707 H (130-400) K/uL Comprehensive Metabolic Panel 07/04/21 Range/Units 04:46 Sodium 137 (136-145) mmol/L Potassium 3.9 (3.5-5.1) mmol/L Chloride 105 (98-107) mmol/L Carbon Dioxide 28 (21-32) mmol/L BUN 13 (7-18) mg/dl Creatinine 0.22 L (0.6-1.2) mg/dl Glucose 88 (70-99) mg/dl Calcium 8.3 L (8.5-10.1) mg/dl Intake and Output 07/03/21 07/04/21 07/04/21 22:59 06:59 14:59 Intake Total 480 / 480 Output Total 70 / 1122 700 / 1122 Balance 410 / -642 -700 / -642 Intake: Tube Feeding 360 / 360 Tube Irrigant 120 / 120 Output: Stool 300 / 300 Urine Amount (Catheter) 70 / 820 400 / 820 Rosas/Indwelling 70 / 820 400 / 820 (1) CHF (congestive heart failure) Heart failure chronicity: acute Heart failure type: unspecified Qualified Code(s): I50.9 - Heart failure, unspecified
--- NOTE | 2021-07-04 17:25 | Hospitalist Progress Note ---
Date of Service July 04, 2021 Assessment & Plan (1) Non-ST elevation [place] (NSTEMI): Plan: ASSESSMENT AND PLAN: This is a 55-year-old female who presents with agitation, chest pain, pain all over and found to be with non-ST elevated myocardial infarction and congestive heart failure. 1. Respiratory Distress: The patient is s/p intubation and mechanical ventilation, possibly secondary to congestive heart failure, received Lasix in ER -- self extubated 06/14, then reintubated 06/15 -- s/p trach placement 06/16 -- Then she was placed back on Vent support Possible Aspiration Pneumonia Completed 10 days course of Unasyn Chest x-ray last night showed significant interval improvement in left lung aeration. Bilateral airspace opacities, improved since prior exam. Small bilateral pleural effusions with probable mild pulmonary edema. Continue vent management as per stockholder CT chest on 06/24 showed moderate left and [id number] right pleural effusions. Near-complete opacification of the left lower lobe which could refl ect subpleural atelectasis or pneumonia. Extensive right lower lobe and lingular opacities could reflect pneumonia or atelectasis. Continue vest percussive therapy 4 times daily given recurrent mucous plugging. Continue hypertonic saline. Continue Mucomyst twice daily. s/p Bronch 06/26/2021 cultures negative to date Trach collar, tolerating well so far continue trach management per presser automatic 2. Non-ST elevated myocardial infarction: Status post cardiac catheterization and stent to the proximal LAD lesion, post-cath care as per cardiology. Ischemic Cardiomyopathy -- s/p Cardiac Cath 06/[address] Hinojosa: 1. Severe multivessel vessel coronary artery disease -90% possibly acute proximal LAD stenosis. Patent mid LAD stent 100% chronic mid RCA occlusion. Distal vessel fills via [id number] collaterals. 2. Elevated intracardiac filling pressure. LVEDP 34 3. Severe obstructive abdominal aortic disease (unable to pass 5 Fr catheter across stenosis). 4. Successful PCI of proximal to mid LAD with single drug-eluting stent (3.0 x 18 mm [place]; postdilated with 3.5 NC, overlaps proximal aspect of prior stent). Echo with EF 25-30%. extensive wall motion abnormalities with the inferior wall being akinetic at the base on ASA, Plavix, Imdur-->changed to Nitropaste, IV Metoprolol, Lisinopril, Lipitor Continue Plavix , aspirin, metoprolol and statin -- no cardiac symptoms -- Continue Lasix Severe Dysphagia Failed swallow eval High risk for aspiration. Status post PEG placement performed by Dr. Aiden Norirs Was reporting abdominal pain CT abdomen and pelvis: No obstruction Continue tube feeding Maalox PRN 3. Anemia, possible GI bleed -- Hemoglobin was 5.4 last admission, required 4 units of PRBCs. He was started on Protonix drip, now on IV PPI BID -- Hg stable 8.5 -- GI not recommending EGD/Colonoscopy due to above -- Consider to transfuse if H/H drops below 7 -- no signs of bleeding -- monitor closely Right Arm DVT -- on Lovenox 4. Elevated lactic acid and acidosis: Most likely from the acute coronary syndrome and respiratory distress. -- improved 5. The patient is on chronic pain medication. Oxycodone PRN 7. History of coronary artery disease. History of LAD stenting in the past as well as vasospastic angina 8. History of VT arrest due to coronary artery vasospasm versus acquired QT prolongation possible of azithromycin exposure, status post single chamber AICD. 9. History of peripheral vascular disease, superficial femoral artery occlusion, left subclavian artery stenosis. on aspirin and Plavix. 10. History of myotonic muscular dystrophy. PT, OT when stable. 11. History of pulmonary embolism. Coumadin was discontinued due to GI bleed in 2019. 12. History of left carotid endarterectomy in 2016. 13. History of chronic obstructive pulmonary disease: Continue her home inhalers. 14. History of seizures: On Keppra and phenytoin 15. History of diastolic congestive heart failure: per above 16. History of hypertension: 17. History of deep venous thrombosis prophylaxis: Will place on sequential compression devices for now because of possible gastrointestinal bleed. 18. Underweight Disposition Waiting for placement Admission and Anticipated Discharge Date Admission Date: June 12, 2021 Subjective Patient was seen and examined for follow-uprespiratory failure and NSTEMI Lying in bed with no acute respiratory distress Continue to require high flow oxygen with trach collar Pt said that she is having alot of pain She would like to get her oxycodone Denies any chest pain, palpitation, dizziness, shortness of breath. Review of Systems Review of Systems: All systems reviewed & are unremarkable except as noted in Subjective Physical Exam Physical Exam: General- No acute distress Head- atraumatic Eyes- PERRL, EOMI, ENT- +trach in placed Neck- supple, no JVD Lungs- clear to auscultation Heart- regular rhythm; no murmur Abdomen- normal bowel sounds, soft, nontender Extremities- no calf tenderness Neuro- alert, oriented x 3; PERRL, EOMI; no facial palsy; no dysarthria Skin- warm & dry Results & Data Results & Data ([facility]) Vital Signs (Past 12 Hours) Vital Signs Temp Pulse Pulse Resp BP Pulse Ox 07/04/21 16:00 85 07/04/21 13:25 87 38 H 98 07/04/21 13:20 91 H 48 H 96 07/04/21 13:15 90 40 H 97 07/04/21 13:10 90 35 H 96 07/04/21 13:05 91 H 38 H 97 07/04/21 13:00 88 30 H 97 07/04/21 12:55 92 H 26 H 98 07/04/21 12:50 89 29 H 99 07/04/21 12:45 89 23 97 07/04/21 12:40 86 22 96 07/04/21 12:35 76 35 H 97 07/04/21 12:30 89 43 H 98 07/04/21 12:25 89 35 H 97 07/04/21 12:20 89 24 96 07/04/21 12:15 88 24 92 07/04/21 12:10 87 39 H 97 07/04/21 12:05 87 36 H 95 07/04/21 12:00 81 25 H 95 07/04/21 11:55 87 45 H 97 07/04/21 11:50 85 28 H 97 07/04/21 11:45 86 31 H 97 07/04/21 11:40 86 16 98 07/04/21 11:35 85 23 99 07/04/21 11:30 84 25 H 97 07/04/21 11:25 85 29 H 98 07/04/21 11:20 86 24 97 07/04/21 11:15 83 28 H 97 07/04/21 11:10 82 55 H 98 07/04/21 11:05 87 24 98 07/04/21 11:00 82 39 H 97 07/04/21 10:55 80 45 H 96 07/04/21 10:50 81 50 H 96 07/04/21 10:45 82 19 96 07/04/21 10:40 81 24 93 07/04/21 10:35 85 19 99 07/04/21 10:30 83 39 H 96 07/04/21 10:25 83 21 97 07/04/21 10:20 83 20 96 07/04/21 10:15 81 35 H 97 07/04/21 10:10 83 29 H 98 07/04/21 10:05 79 30 H 98 07/04/21 10:00 83 18 99 07/04/21 09:55 80 35 H 98 07/04/21 09:50 80 26 H 98 07/04/21 09:45 82 17 98 07/04/21 09:40 83 20 99 07/04/21 09:35 36.8 C 84 35 H 95/58 L 98 07/04/21 09:31 82 19 100 07/04/21 09:25 82 24 98 07/04/21 09:20 83 31 H 98 07/04/21 08:09 62 20 93 07/04/21 07:58 81 07/04/21 07:45 89 23 98 07/04/21 07:40 81 20 96 07/04/21 07:35 83 21 94 07/04/21 07:30 81 23 92 07/04/21 07:25 80 21 93 07/04/21 07:20 85 22 92 07/04/21 07:15 79 24 91 07/04/21 07:10 80 22 92 07/04/21 07:05 79 24 93 07/04/21 07:00 79 26 H 94 07/04/21 06:55 81 25 H 94 07/04/21 06:50 87 27 H 94 07/04/21 06:45 84 23 95 07/04/21 06:40 84 23 93 07/04/21 06:35 80 24 94 07/04/21 06:30 78 22 94 07/04/21 06:25 80 22 93 07/04/21 06:20 84 29 H 112/63 90 07/04/21 06:15 86 33 H 90 07/04/21 06:10 90 27 H 93 07/04/21 06:05 87 30 H 96 07/04/21 06:00 36.3 C L 88 29 H 112/63 92
[2021-07-04] MEDS: oxyCODONE HCL IR 5 MG TAB (IMMEDIATE RELEASE) PEG PRN (17:36)
--- NOTE | 2021-07-04 19:29 | XRay Report ---
XR chest 1V portable HISTORY: 55 years-old Female follow up CHF acute shortness of breath with congestive heart failure COMPARISON: Chest radiograph 06/28/2021 TECHNIQUE: Portable AP view the chest FINDINGS: Tracheostomy cannula overlies the midline the level of the mid trachea. Left subclavian pacer/AICD. R ight IJ central venous catheter is unchanged. Cardiomegaly with coronary arterial stent. No pneumotho rax. There is improved aeration of the lung bases with decrease size of the pleural effusions. Small left and trace right pleural effusions with mild left basilar consolidation. No acute fracture. IMPRESSION: 1. Cardiomegaly with improved pulmonary edema. 2. Decreased size of the left greater than right pleural effusions. 3. Improved aeration of the lung bases with persistent left lung base consolidation. ACT 112: Negative or not required by law. The above report was generated using voice recognition software. It may contain grammatical, syntax o r spelling errors. Electronically signed by: Freeman Nelson M.D. 07/04/2021 7:27 PM
[2021-07-04] MEDS: PHENYTOIN SUSP 125 MG/5 ML PO SCH (20:19)
[2021-07-04] MEDS: ATORVASTATIN 40 MG TAB PO SCH (20:21)
[2021-07-05] MEDS: oxyCODONE HCL IR 5 MG TAB (IMMEDIATE RELEASE) PEG PRN ×2 (03:41→08:23)
[2021-07-05] MEDS: RASPBERRY SYRUP 5 ML UDP PO SCH (05:11)
[2021-07-05] MEDS: MoRPHine SULFATE 5 MG/0.25 ML UDP PO SCH ×2 (05:13→11:51)
[2021-07-05] MEDS: VANCOMYCIN HCL 125 MG/2.5ML SOLN PO SCH (05:13)
[2021-07-05] MEDS: INSULIN ASPART 100 UNITS/ML 3 ML PEN SC SCH (06:46)
[2021-07-05] MEDS: ALBUT/IPRATROP 3MG/0.5MG NEB 3 ML VIAL NEB PRN (07:32)
[2021-07-05] MEDS: SODIUM CHLOR 7% 4 ML NEB NEB SCH (07:32)
[2021-07-05] MEDS: THIAMINE HCL 100 MG TAB PEG SCH (08:19)
[2021-07-05] MEDS: PRIMIDONE 50 MG TAB PO SCH (08:20)
[2021-07-05] MEDS: levETIRAcetam ORAL SOLN 100MG/ML PO SCH (08:21)
[2021-07-05] MEDS: FERROUS SULFATE 325 MG/7.4 ML UDP PO SCH (08:21)
[2021-07-05] MEDS: METOPROLOL TARTRATE 25 MG TAB PO SCH (08:21)
[2021-07-05] MEDS: UMECLIDINIUM/VILANTEROL 62.5/25MCG 7 PUFFS/INHALER INH SCH (08:22)
[2021-07-05] MEDS: LORATADINE 10 MG TAB PO SCH (08:22)
[2021-07-05] MEDS: LANSOPRAZOLE 30 MG SOLTAB PEG SCH (08:22)
[2021-07-05] MEDS: CLOPIDOGREL BISULFATE 75 MG TAB PO SCH (08:22)
[2021-07-05] MEDS: lisinopril 2.5 MG TAB PO SCH (08:22)
[2021-07-05] MEDS: ASPIRIN 81 MG CHEW NG SCH (08:23)
[2021-07-05] MEDS: PHENYTOIN 100 MG/4 ML UDP PO SCH (08:25)
[2021-07-05] MEDS: GABAPENTIN 250 MG/5 ML 470 ML BTL PO SCH (08:25)
[2021-07-05] MEDS: FLUTICASONE FUROATE 100MCG 14 PUFFS/INHALER INH SCH (08:26)
[2021-07-05] MEDS: FLUTICASONE PROPIONATE NA SPR 16 GM BTL SCH (08:26)
[2021-07-05] MEDS: POTASSIUM CHLORIDE 20 MEQ/15 ML UDC PO SCH (08:27)
[2021-07-05] MEDS: TUBE FEEDING WATER FLUSH GT SCH (08:38)
[2021-07-05] MEDS: PEPTAMEN 1.5 CAL 1,000 ML BAG GT SCH (08:38)
[2021-07-05] MEDS ORDERED: FUROSEMIDE 20 MG TAB PO SCH ×2 (09:00)
--- NOTE | 2021-07-05 11:25 | Discharge Summary ---
Date of Service July 05, 2021 Admission HPI Per Admitting Provider CHIEF COMPLAINT: Agitation, non-ST elevated SD, CHF. HISTORY OF PRESENT ILLNESS: This is a 55-year-old female with past medical history significant for COPD, ongoing tobacco abuse, hyperlipidemia, who seems to be smoking 2-3 cigarettes daily, history of diastolic CHF, bilateral carotid artery stenosis, hypertension, history of CAD, Prinzmetal's angina, GERD, vitamin D deficiency, myotonic muscular dystrophy, sacroiliitis, posttraumatic stress disorder, chronic pain syndrome, on pain medications, polyneuropathy and collagen vascular disease, microcytic anemia, history of VT due to coronary artery vasospasm versus acquired QT prolongation with azithromycin exposure, status post single chamber AICD, history of nondependent cocaine abuse in remission, history of nondependent cannabis abuse, history of CAD status post stent, anxiety and depression, who was brought in because of some confusion and agitation at home. Seems she had chest pain for the last few weeks and her found her in acute distress with pain all over the chest, body, and the legs and increasingly agitated and she was brought in here in the ER. Because of respiratory distress and agitation, she was intubated in ER and the lab work showed pulmonary edema on the chest x-ray and she was given a dose of Lasix and troponin was elevated at 6.5, BNP was 35,000. Cardiology was in the ER and the bedside echo showed new severe LV dysfunction with LAD distribution of the wall motion abnormality. The patient was taken for emergency cardiac catheterization and had a 90% lesion in the proximal LAD and it was stented. There was a RCA lesion also, but these were collaterals. The patient was transferred to the ICU. Currently, still intubated and sedated, on propofol. The patient was recently in the hospital. She was admitted on 05/16/2021 and discharged on 05/19/2021 She signed out AMA at that time. At that time, she came here because of symptomatic anemia, hemoglobin 5.4. She received 4 units of PRBC. Her hemoglobin improved from 5.4 to 11.4. There was a plan for outpatient EGD and colonoscopy and she was on Protonix 40 mg p.o. b.i.d. At that time also, her troponin was 1.45, but trended down to 1.3 and echo showed no abnormalities at that time. At that time, Plavix was discontinued by cardiology as stent was placed many years ago and having GI bleed. Currently, the patient is hemodynamically stable. Admission Exam Per Admitting Provider GENERAL: The patient is currently intubated and sedated. VITAL SIGNS: Temperature 35.5, pulse 74, respiratory rate 28, blood pressure 112/73, oxygen 100% on mechanical vent. HEENT: Pupils diminished in sight, but reactive to light. NECK: No JVD seen. No neck masses seen. CARDIOVASCULAR: S1 and S2 heard. Regular rate and rhythm. No murmur, no gallop. RESPIRATORY SYSTEM: Normal AP diameter. No accessory muscle use. Mild bibasilar crackles. No wheezing. ABDOMEN: Soft, bowel sounds present, nontender, no distention. CENTRAL NERVOUS SYSTEM: s/p intubated and sedated. EXTREMITIES: No edema seen. Left groin catheterization site, no obvious bleeding seen and also right wrist catheterization site is okay. Principal Diagnosis Respiratory Distress s/p tracheostomy Non-ST elevated myocardial infarction Severe Dysphagia Anemia, Right Arm DVT Discharge Exam General- No acute distress Head- atraumatic Eyes- PERRL, EOMI, ENT- +trach in placed Neck- supple, no JVD Lungs- clear to auscultation Heart- regular rhythm; no murmur Abdomen- normal bowel sounds, soft, nontender Extremities- no calf tenderness Neuro- alert, oriented x 3; PERRL, EOMI; no facial palsy; no dysarthria Skin- warm & dry Discharge Data Allergies Allergy/AdvReac Type Severity Reaction Status Date / Time bee venom protein (honey bee) Allergy Severe Anaphylaxis Verified 06/12/21 00:03 -HIVES Influenza Virus Vaccines Allergy Severe EDEMA Verified 06/13/21 09:54 AIRWAY latex Allergy Intermediate HIVES, Verified 06/12/21 00:03 BLISTERS scopolamine Allergy Unknown Unknown Verified 06/12/21 00:03 azithromycin [From Zithromax] AdvReac Severe STOMACH Verified 06/12/21 00:03 ULCERS, BLEEDING, ARRYTHMIAS dexbrompheniramine AdvReac Severe CARDIAC Verified 06/12/21 00:03 SPASMS--ALL ANTIHISTAMINES pseudoephedrine AdvReac Severe CARDIAC Verified 06/12/21 00:03 SPASMS--ALL ANTIHISTAMINES levofloxacin AdvReac Intermediate QTC Verified 06/12/21 00:03 PROLONGATION H/O VF ARREST meperidine AdvReac Intermediate NAUSEA, Verified 06/12/21 00:03 VOMITING methadone AdvReac Intermediate NAUSEA, Verified 06/12/21 00:03 VOMITING, RASH diphenhydramine AdvReac Mild "ARTERITAL Verified 06/12/21 00:03 SPASMS" COLD AdvReac Unknown VASCULAR Uncoded 06/12/21 00:03 COLLAPSE SYNDROME Consultations 06/12/21 03:54 Consult Cardiac Rehabilitation Routine 06/12/21 03:55 Consult Printer Apprentice Routine 06/12/21 05:04 Consult Gastroenterology Routine 06/12/21 08:00 Consult Cardiology Routine 06/18/21 15:23 Consult Gastroenterology Routine 06/19/21 12:48 Consult Anesthesiology Routine 06/24/21 09:54 Consult Palliative Care Routine 06/28/21 08:25 Consult Infectious Diseases Routine Procedures Performed Operation Date: 06/12/21 01:30 Actual Procedures p Drug Eluting Stent SGl Vessel - Carlos Enrique Hinojosa MD s Cath, Left with Cors and Vent - Carlos Enrique Hinojosa MD s Cineradiography w/Routine Exam - Carlos Enrique Hinojosa MD s Ultrasound Vascular Access - Carlos Enrique Hinojosa MD s Placement Art Occlusive Device - Carlos Enrique Hinojosa MD Operation Date: 06/21/21 11:00 Actual Procedures p Esophagogastroduodenoscopy with Percutaneous Endoscopic Gastrostomy Tube Placement(Not Applicable) - Nick Waddell MD Operation Date: 06/21/21 15:30 <No data on this case meets the specified criteria> Ordered Studies 06/12/21 01:15 CL Cath Imgs for PACS use only Stat 06/17/21 00:00 US venous doppler UE RT Urgent 06/24/21 08:38 CT chest diagnostic wo con Urgent 06/25/21 07:47 US venous doppler UE LT Urgent 06/25/21 08:40 US point of care ultrasound Routine 06/30/21 17:51 CT abd pelvis wo con Stat XR chest 1V portable HISTORY: 55 years-old Female follow up CHF acute shortness of breath with congestive heart failure COMPARISON: Chest radiograph 06/28/2021 TECHNIQUE: Portable AP view the chest FINDINGS: Tracheostomy cannula overlies the midline the level of the mid trachea. Left subclavian pacer/AICD. Right IJ central venous catheter is unchanged. Cardiomegaly with coronary arterial stent. No pneumothorax. There is improved aeration of the lung bases with decrease size of the pleural effusions. Small left and trace right pleural effusions with mild left basilar consolidation. No acute fracture. IMPRESSION: 1. Cardiomegaly with improved pulmonary edema. 2. Decreased size of the left greater than right pleural effusions. 3. Improved aeration of the lung bases with persistent left lung base consolidation. ACT 112: Negative or not required by law. The above report was generated using voice recognition software. It may contain grammatical, syntax or spelling errors. Electronically signed by: Freeman Nelson M.D. 07/04/2021 7:27 PM Dictated:07/04/211925 Transcribed: 07/04/211925 CT abd pelvis wo con CLINICAL HISTORY: abdominal pain, peg tube TECHNIQUE: Helical axial images of the abdomen and pelvis were obtained. Automated dose lowering techniques and/or adjustment according to patient size were utilized for this exam. This exam was performed without intravenous contrast. COMPARISON: Comparison is made to CT pelvis 03/31/2014 FINDINGS: Lower chest: There is large atelectasis and/or consolidation in the bilateral lower lungs, left greater than right. Cardiomegaly is noted. There are small bilateral pleural effusions. Liver: Unremarkable. No focal lesions are seen. Gallbladder and biliary tree: No calcified gallstones. Normal caliber wall. No intra- or extrahepatic biliary ductal dilation. Pancreas: Unremarkable, no focal lesions. Spleen: Unremarkable. Adrenals: Unremarkable. Kidneys and ureters: Nonobstructive nephrolithiasis is seen. Bladder: Unremarkable. Reproductive organs: Again noted is a cystic left adnexal lesion measuring approximately 4 cm in diameter. Bowel: Gastrostomy tube and rectal tube are in place. There is mild gastric wall thickening. Lymph nodes Retroperitoneal: Unremarkable. Mesenteric: Unremarkable. Pelvic: Unremarkable. Peritoneum: Normal Vessels: There are extensive atherosclerotic calcifications with calcifications within the aortic lumen. A low evaluation is limited by noncontrast technique, this likely represents hemodynamically significant stenosis at multiple points along the abdominal aorta. Abdominal wall: There is a paucity of abdominal wall fat and musculature. Bones: Degenerative changes in the visualized spine. IMPRESSION: 1. Gastrostomy tube and rectal tube are seen. There is thickening of the proximal stomach which may be due to underdistention or represent gastritis. 2. Severe atherosclerotic disease with likely hemodynamically significant stenosis at multiple points in the abdominal aorta, although evaluation is limited due to noncontrast technique. 3. Left adnexal cyst is similar in size and appearance compared to prior exam. 4. Additional findings as above. ACT 112: Negative or not required by law. Electronically signed by: Eber Hairston M.D. 06/30/2021 6:49 PM Dictated:06/30/211830 Transcribed: 06/30/211832 XR KUB/Abdomen 1 view CLINICAL HISTORY: r/o ileus, obstruction TECHNIQUE: 1 view of the abdomen was obtained. Comparison: Comparison is made to chest one view 06/26/2021 FINDINGS: A gastrostomy tube is seen. The osseous structures are grossly unremarkable. The bowel gas pattern is nonobstructive. A moderate amount of stool is noted within the large bowel. IMPRESSION: Nonobstructive bowel gas pattern. ACT 112: Negative or not required by law. Electronically signed by: Eber Hairston M.D. 06/30/2021 7:11 PM Dictated:06/30/211910 Transcribed: 06/30/211910 XR chest 1V portable HISTORY: Respiratory failure. COMPARISON: Chest 06/19/2021. FINDINGS: Lines and tubes remain unchanged in position. Left-sided pacemaker is again noted. No pneumothorax. Diffuse interstitial/vascular thickening consistent with pulmonary edema and bilateral pleural effusions have slightly progressed. Left base airspace opacities remain unchanged. IMPRESSION: 1. Interval progression of the interstitial pulmonary edema and bilateral pleural effusions. 2. Satisfactory support line placement. ACT 112: Negative or not required by law. Electronically signed by: Robert Godoy M.D. 06/28/2021 9:27 AM Dictated:06/28/21925 Transcribed: 06/28/21925 XR chest 1V portable HISTORY: 55 years-old Female Resp failure acute respiratory failure COMPARISON: Chest radiograph 06/26/2021 TECHNIQUE: Portable AP view of the chest FINDINGS: Cardiomediastinal and hilar silhouettes are unchanged. Calcified plaque of the thoracic aorta. Right IJ central venous catheter distal tip is noted in the expected location of the upper SVC. Unchanged positioning of the tracheostomy cannula. Left subclavian pacer/AICD. No pneumothorax. Pulmonary vascular congestion with interstitial coarsening. Layering pleural effusions, left greater the right with bibasilar opacities, without significant change. Degenerative changes of the shoulders and spine. IMPRESSION: 1. Cardiomegaly with pulmonary edema. 2. Left greater than right pleural effusions with bibasilar consolidation appea rs generally stable. ACT 112: Negative or not required by law. The above report was generated using voice recognition software. It may contain grammatical, syntax or spelling errors. Electronically signed by: Freeman Nelson M.D. 06/27/2021 9:08 AM Dictated:06/27/21905 Transcribed: 06/27/21905 XR chest 1V portable CLINICAL HISTORY: post bronch TECHNIQUE: Single frontal radiograph of the chest was obtained. Comparison: None available at the time of this dictation. FINDINGS: Tracheostomy tube, single lead pacemaker defibrillator, and right internal carotid venous catheter are unchanged in position. The cardiomediastinal silhouette is stable. Bilateral lower lung predominant airspace opacities are seen. Bibasilar pleural effusions are seen. IMPRESSION: Stable exam with redemonstration of bilateral lower lung airspace opacities and left greater than right pleural effusions. ACT 112: Negative or not required by law. Electronically signed by: Eber Hairston M.D. 06/26/2021 4:27 PM Dictated:06/26/211625 Transcribed: 06/26/211625 LEFT UPPER EXTREMITY VENOUS DOPPLER HISTORY: Left arm swelling. COMPARISON STUDY: None. FINDINGS: The left internal jugular vein is patent. Occlusive to near occlusive thrombus involving the left subclavian, axillary, basilic, and one of 2 brachial veins. Intermittent flow within one of 2 ulnar veins suggesting partial thrombus. There is subcutaneous edema within the left upper extremity. IMPRESSION: Extensive left upper extremity DVT as described above. ACT 112: Negative or not required by law. Electronically signed by: Robert Godoy M.D. 06/25/2021 10:38 AM Dictated:06/25/211035 Transcribed: 06/25/211035 Hospital Course (1) Non-ST elevation SD (NSTEMI): ASSESSMENT AND PLAN: This is a 55-year-old female who presents with agitation, chest pain, pain all over and found to be with non-ST elevated myocardial infarction and congestive heart failure. 1. Respiratory Distress: The patient is s/p intubation and mechanical ventilation, possibly secondary to congestive heart failure, received Lasix in ER -- self extubated 06/14, then reintubated 06/15 -- s/p trach placement 06/16 -- Then she was placed back on Vent support Possible Aspiration Pneumonia Completed 10 days course of Unasyn Chest x-ray last night showed significant interval improvement in left lung aeration. Bilateral airspace opacities, improved since prior exam. Small bilateral pleural effusions with probable mild pulmonary edema. Continue vent management as per full stack developer CT chest on 06/24 showed moderate left and [id number] right pleural effusions. Near-complete opacification of the left lower lobe which could reflect subpleural atelectasis or pneumonia. Extensive right lower lobe and lingular opacities could reflect pneumonia or atelectasis. Continue vest percussive therapy 4 times daily given recurrent mucous plugging. Continue hypertonic saline. Continue Mucomyst twice daily. s/p Bronch 06/26/2021 cultures negative to date Trach collar, tolerating well so far continue trach management per print journalist 2. Non-ST elevated myocardial infarction: Status post cardiac catheterization and stent to the proximal LAD lesion, post-cath care as per cardiology. Ischemic Cardiomyopathy -- s/p Cardiac Cath 06/[address] Hinojosa: 1. Severe multivessel vessel coronary artery disease -90% possibly acute proximal LAD stenosis. Patent mid LAD stent 100% chronic mid RCA occlusion. Distal vessel fills via [id number] collaterals. 2. Elevated intracardiac filling pressure. LVEDP 34 3. Severe obstructive abdominal aortic disease (unable to pass 5 Fr catheter across stenosis). 4. Successful PCI of proximal to mid LAD with single drug-eluting stent (3.0 x 18 mm Dale; postdilated with 3.5 NC, overlaps proximal aspect of prior stent). Echo with EF 25-30%. extensive wall motion abnormalities with the inferior wall being akinetic at the base on ASA, Plavix, Imdur-->changed to Nitropaste, IV Metoprolol, Lisinopril, Lipitor Continue Plavix , aspirin, metoprolol and statin -- no cardiac symptoms -- Continue Lasix Severe Dysphagia Failed swallow eval High risk for aspiration. Status post PEG placement performed by Dr. Aiden Norris Was reporting abdominal pain CT abdomen and pelvis: No obstruction Continue tube feeding Maalox PRN 3. Anemia, possible GI bleed -- Hemoglobin was 5.4 last admission, required 4 units of PRBCs. He was started on Protonix drip, now on IV PPI BID -- Hg stable 8.5 -- GI not recommending EGD/Colonoscopy due to above -- Consider to transfuse if H/H drops below 7 -- no signs of bleeding -- monitor closely Right Arm DVT -- on Lovenox 4. Elevated lactic acid and acidosis: Most likely from the acute coronary syndrome and respiratory distress. -- improved 5. The patient is on chronic pain medication. Oxycodone PRN 7. History of coronary artery disease. History of LAD stenting in the past as well as vasospastic angina 8. History of VT arrest due to coronary artery vasospasm versus acquired QT prolongation possible of azithromycin exposure, status post single chamber AICD. 9. History of peripheral vascular disease, superficial femoral artery occlu jude, left subclavian artery stenosis. on aspirin and Plavix. 10. History of myotonic muscular dystrophy. PT, OT when stable. 11. History of pulmonary embolism. Coumadin was discontinued due to GI bleed in 2019. 12. History of left carotid endarterectomy in 2015. 13. History of chronic obstructive pulmonary disease: Continue her home inhalers. 14. History of seizures: On Keppra and phenytoin 15. History of diastolic congestive heart failure: per above 16. History of hypertension: 17. History of deep venous thrombosis prophylaxis: Will place on sequential compression devices for now because of possible gastrointestinal bleed. 18. Underweight Disposition Waiting for placement Total Time Total Time Spent Total Time Spent (In Minutes): 45 minutes Discharge Plan Discharge Items Patient Disposition: Trans Resident Long-Term Care Reason For Visit: HEART FAILURE Discharge Diagnosis: Respiratory Distress s/p tracheostomy Non-ST elevated myocardial infarction Severe Dysphagia Anemia, Right Arm DVT Condition on Discharge: Fair Activity: Resume your previous activity Non-emergency contact: Primary Care Provider and Blast Furnace Supervisor Call non-emergency contact if: you have any medication questions Follow-up/Referrals: Humberto Mccollum, [Primary Care Provider] - Diet: Other - See Diet Comment Addtl Attending Provider Instructions: Follow up with your primary are provider once discharge from rehab Follow up with cardiology one discharge from rehab Follow up with speech therapy for the dysphagia Continue physical and occupation therapy Continue tracheostomy care Continue intermittent suctioning Continue Peg tube feeding Continue vest percussive therapy 4 times daily given recurrent mucous plugging. Continue aspiration, fall and seizure precautions Check CBC in 1 week to monitor your hemoglobin Check BMP in 1 week to monitor your electrolytes Continue sterile water flush at 60ml q4h via Gtube Pending Studies at Discharge: No Stand-Alone Forms: My [facility] Skilled Items Patient informed of condition?: Yes DNR: No Discharge Level of Care: Other Communicable Disease: No Discharge Prognosis: Stable Lines: None Urinary Catheter: No Medications and DC Order Prescriptions: New Anoro Ellipta 62.5-25 mcg/actuation Blister With Device 1 inh inhalation DAILY 30 Days Qty: 1 RF: 0 ipratropium-albuterol 0.5 mg-3 mg(2.5 mg base)/3 mL Solution For Nebulization 3 ml NEB Q4R PRN (Reason: shortness of breath or wheezing) Qty: 90 RF: 0 clopidogrel 75 mg Tablet 75 mg PO QAM Qty: 30 RF: 0 enoxaparin 60 mg/0.6 mL Syringe 50 mg subcut Q12H 30 Days Qty: 30 RF: 0 metoprolol tartrate 25 mg Tablet 12.5 mg PO TID 30 Days Qty: 45 RF: 0 phenytoin 125 mg/5 mL Suspension 150 mg PO DAILY@2100 Qty: 237 RF: 0 phenytoin 125 mg/5 mL Suspension 100 mg PO BID@0900,1400 Qty: 237 RF: 0 Peptamen 1.5 0.068 gram- 1.5 kcal/mL Liquid 1 ea feeding tube TID@0700,1200,2300 30 Days Qty: 6000 RF: 0 sodium chloride 7 % Solution For Nebulization 4 ml NEB BIDR Qty: 30 RF: 0 lansoprazole [Prevacid SoluTab] 30 mg Tablet,Disintegrat, Delay Rel 30 mg PEG BID Qty: 60 RF: 0 Arnuity Ellipta 100 mcg/actuation Blister With Device 1 inh inhalation DAILY Qty: 30 RF: 0 thiamine HCl (vitamin B1) [Vitamin B-1] 100 mg Tablet 100 mg PEG BID Qty: 60 RF: 0 vancomycin 125 mg capsule 125 mg PO Q6H 4 Days Qty: 16 RF: 0 lisinopril 2.5 mg Tablet 2.5 mg PO DAILY Qty: 30 RF: 0 Continued atorvastatin 80 mg tablet 80 mg PO HS RF: 0 albuterol sulfate 90 mcg/actuation HFA aerosol inhaler 2 puff INHALATION Q4 PRN (Reason: Wheezing) RF: 0 isosorbide dinitrate 5 mg tablet 5 mg PO DIRECTED PRN (Reason: chestpain) RF: 0 levetiracetam 1,000 mg tablet 1,000 mg PO BID RF: 0 gabapentin 600 mg tablet 600 mg PO TID RF: 0 furosemide 20 mg tablet 20 mg PO DAILY RF: 0 tizanidine 4 mg tablet 4 mg PO Q8 PRN (Reason: Muscle Spasm) RF: 0 aspirin 81 mg Tablet,Delayed Release (Dr/Ec) 81 mg PO DAILY RF: 0 fluticasone propionate 50 mcg/actuation spray,suspension 2 spray INTRANASAL DAILY RF: 0 epinephrine [EpiPen] 0.3 mg/0.3 mL Auto-Injector 0.3 mg IM UD PRN (Reason: Allergic Reaction) RF: 0 loratadine 10 mg tablet 10 mg PO DAILY RF: 0 ferrous sulfate 325 mg (65 mg iron) Tablet,Delayed Release (Dr/Ec) 325 mg PO BIDM Qty: 60 RF: 0 primidone 50 mg Tablet 50 mg PO TID RF: 0 acetaminophen [Tylenol] 325 mg Tablet 325 mg PO Q6H PRN (Reason: Pain) RF: 0 ondansetron HCl [Zofran] 4 mg Tablet 4 mg PO Q8H PRN (Reason: NAUSEA/VOMITING) RF: 0 aspirin 325 mg Tablet,Delayed Release (Dr/Ec) 650 mg PO BID PRN (Reason: Pain) RF: 0 gabapentin 300 mg Capsule 300 mg PO TID RF: 0 oxycodone 5 mg tablet 5 mg PO Q6 PRN (Reason: Pain, Moderate) Qty: 10 RF: 0 Changed potassium chloride 20 mEq tablet,ER particles/crystals 20 meq PO DAILY Qty: 30 RF: 0 Discontinued trazodone 50 mg tablet 100 mg PO HS RF: 0 phenytoin sodium extended 100 mg capsule 100 mg PO TID RF: 0 morphine 30 mg tablet extended release 30 mg PO BID RF: 0 lisinopril 5 mg tablet 10 mg PO DAILY RF: 0 prazosin 1 mg capsule 1 mg PO BID RF: 0 diltiazem HCl 240 mg capsule,extended release 24 hr 480 mg PO DAILY RF: 0 isosorbide mononitrate 120 mg tablet extended release 24 hr 120 mg PO AMPM RF: 0 protein 500 mg Tablet,Chewable 500 mg PO DAILY RF: 0 pantoprazole 40 mg Tablet,Delayed Release (Dr/Ec) 40 mg PO BID Qty: 60 RF: 0 guaifenesin 600 mg Tablet Extended Release 12hr 600 mg PO Q12H PRN (Reason: Congestion) RF: 0 Discharge Orders: Discharge Order (Routine); Ordered 07/05/21 Ordered By: Jam Acuña Admission Data Admit Date/Time: 06/12/21 03:55 Attending Provider: Jam Acuña Admit Provider: Carlos Enrique Hinojosa Primary Care Provider: Humberto Mccollum Other Providers: Aletha Diaz ; Jeanna Soriano ; Maria C Hernández ; Garima Salgado ; Shamar Hutson ; Cheryl Long ; Kevin Mcnamara ; Quentin Ramos ; Marta England ; Kami Sharp ; Guadalupe Christianson ; Irma Heard ; Nick Waddell ; Costa Ramos ; [facility] ; Javon Collins ; Tucker Ocasio ; Alexis Arora ; Nelson Machado ; Joe Reyes ; Deep Lei ; Jomar Benitez ; Doris Miller ; Thu Narvaez ; Gypsy Casiano ; Andrei London ; Eber Porter ; Park Lindsay ; Saroj Garsia ; Micaela Young ; Nitish Dietrich I. ; Hudson Preston II ; Mary Jo Clark ; Jomar Bauman ; Sarabjit Karimi ; [facility] ; Reji Brown Other Interventions: Discharge Summary Assessment (RN) Last Done: 07/05/21 10:34
== END 2021-07-05 12:25 | DRG 3 ==
LOC: ED 23:19 → CC 06-12 02:04 → 1E 06-12 03:55 → SUATTDRO 06-12 03:55